=== PATIENT | female | born 1970 | race Caucasian/White ===

== ENCOUNTER 2018-10-12 21:16 | Emergency (ER) | payer MEDICARE, OTHER ==
[2018-10-12 21:24] VITALS: BP 128/88; PULSE 72; RESP 18; TEMP 97.7
[2018-10-12] MEDS ORDERED: KETOROLAC 60 MG/2 ML VIAL IM STA (21:59)
--- NOTE | 2018-10-12 22:02 | ED ---
Extremity Problem HPI - General Chief complaint: Extremity Problem,Nontraumatic Stated complaint: Lt and Right knee pain Time Seen by Provider: 10/12/18 21:27 Source: patient Mode of arrival: wheelchair Limitations: no limitations - History of Present Illness Initial comments: This patient is a 48-year-old woman who complains of having months of bilateral knee pain. She states that it seems to bother her most when she stands for hours, for example while working. She states that she had been living in [place], and they recommended that she have physical therapy. She states that she was not able to afford this. She moved back to [place] in July, and has been working at [employer] where she is required to stand. She states that this seems to bring on the bilateral knee pain. She describes as an ache and indicates the entire joint. She has not had fever or chills. No palpitations, chest pain, dyspnea. She has not had pain in the muscles of the legs. She has noted a little bit of swelling to the anterior of the left knee, and states that this has been going on for quite some time. She does note that she had bilateral TKA performed in the other state years ago in response to having the pains, but she states that she continue to have them after. MD Complaint: joint swelling, joint pain -: month(s) Location: bilateral lower extremity, knee -: Yes arthralgia Quality: aching Consistency: constant Improves with: nothing Worsens with: other (standing for hours) Associated Symptoms: denies other symptoms - Related Data Home Medications Medication Instructions Recorded Confirmed Levothyroxine Sodium [Synthroid] 137 mcg PO DAILY 10/12/18 10/12/18 Lisinopril [Zestril] 2.5 mg PO DAILY 10/12/18 10/12/18 Topiramate [Topamax] 25 mg PO BID 10/12/18 10/12/18 glipiZIDE XL [Glucotrol Xl] 10 mg PO DAILY 10/12/18 10/12/18 metFORMIN HCL ER [Glucophage Xr] 1,000 mg PO BID 10/12/18 10/12/18 risperiDONE [RisperDAL] 0.5 mg PO BID 10/12/18 10/12/18 Previous Rx's Medication Instructions Recorded Ibuprofen 800 mg PO TID #20 tablet 10/12/18 Allergies Allergy/AdvReac Type Severity Reaction Status Date / Time acetaminophen Allergy Rash/Hives Verified 10/12/18 21:56 [From Darvocet-N] cephalexin [From Keflex] Allergy Rash/Hives Verified 10/12/18 21:56 propoxyphene Allergy Rash/Hives Verified 10/12/18 21:56 [From Darvocet-N] Review of Systems ROS Statement: Those systems with pertinent positive or pertinent negative responses have been documented in the HPI. ROS Other: All systems not noted in ROS Statement are negative. Constitutional: Denies: fever, chills, weakness Respiratory: Denies: cough, dyspnea Cardiovascular: Denies: chest pain, palpitations Musculoskeletal: Reports: joint swelling, arthralgia. Denies: back pain Skin: Denies: rash Neurological: Denies: weakness, numbness Past Medical History Past Medical History: Diabetes Mellitus, Hypertension History of Any Multi-Drug Resistant Organisms: None Reported Past Surgical History: Section, Cholecystectomy, Hysterectomy, Orthopedic Surgery Additional Past Surgical History / Comment(s): bilat knees,thymus gland Past Psychological History: No Psychological Hx Reported Smoking Status: Never smoker Past Alcohol Use History: None Reported Past Drug Use History: None Reported General Exam Limitations: no limitations General appearance: alert, in no apparent distress Respiratory exam: Present: normal lung sounds bilaterally. Absent: respiratory distress, wheezes, rales, rhonchi, stridor Cardiovascular Exam: Present: regular rate, normal rhythm, normal heart sounds. Absent: systolic murmur, diastolic murmur, rubs, gallop Extremities exam: Present: normal inspection, normal capillary refill, joint swelling (mild swelling L knee). Absent: pedal edema Neurological exam: Present: alert Skin exam: Present: warm, dry, intact, normal color. Absent: rash Course Vital Signs 10/12/18 21:19 Temperature 97.7 F Pulse Rate 72 Respiratory 18 Rate Blood Pressure 128/88 O2 Sat by Pulse 99 Oximetry Disposition Clinical Impression: Knee pain, bilateral Disposition: HOME SELF-CARE Condition: Fair Instructions (If sedation given, give patient instructions): Knee Pain (ED) Prescriptions: Ibuprofen 800 mg PO TID #20 tablet Is patient prescribed a controlled substance at d/c from ED?: No Referrals: Manjinder Beck MD [Primary Care Provider] - 1-2 days Mark Dowling DO [Doctor of Osteopathic Medicine] - 1-2 days
--- NOTE | 2018-10-12 22:18 | XR ---
EXAM: XR Left Knee, 3 views CLINICAL HISTORY: Pain TECHNIQUE: Three views of the left knee. COMPARISON: No relevant prior studies available. FINDINGS: Bones/joints: Total knee arthroplasty. No acute fracture or traumatic malalignment. Soft tissues: Unremarkable. IMPRESSION: No acute findings.
== END 2018-10-12 23:54 | disposition home or self-care (01) ==
LOC: EC 21:16
DX: M25.561 Pain in right knee (principal); M25.562 Pain in left knee; E11.9 Type 2 diabetes mellitus without complications; I10 Essential (primary) hypertension; Z79.890 Hormone replacement therapy; Z79.84 Long term (current) use of oral hypoglycemic drugs; Z79.899 Other long term (current) drug therapy; Z88.1 Allergy status to other antibiotic agents; Z88.5 Allergy status to narcotic agent; Z88.6 Allergy status to analgesic agent
CPT/HCPCS: 73562; 99283; 96372; J1885

== ENCOUNTER 2018-12-15 20:09 | Emergency (ER) | payer MEDICARE, OTHER ==
[2018-12-15 20:15] VITALS: TEMP 98
[2018-12-15] MEDS ORDERED: SODIUM CHLORIDE 0.9% 1,000 ML IV STA ×2 (20:18→21:32)
[2018-12-15] MEDS ORDERED: KETOROLAC 30 MG/ML 1 ML VIAL IVP STA (20:41)
--- NOTE | 2018-12-15 20:43 | ED ---
General Adult HPI - General Chief complaint: Arrhythmia/Palpitations Stated complaint: sent by [employer] Time Seen by Provider: 12/15/18 20:17 Source: patient Mode of arrival: ambulatory Limitations: no limitations - History of Present Illness Initial comments: Dictation was produced using [employer] dictation software. please excuse any grammatical, word or spelling errors. Chief Complaint: 48-year-old female sent in from urgent care for elevated heart rate. History of Present Illness: 48-year-old female she was seen at the urgent care office for sinusitis. Patient has been having 3-4 days of runny nose, sore throat and cough. She was at urgent care when they checked her vitals. She had a heart rate of 122 that did not improve. She is given prescription for Augmentin and Tessalon Perles and told to come to the emergency Department due to elevated heart rate. Patient feels like her heart beating fast. She did feel slightly feverish however she has no other complaints. Denies any chest pain. No abdominal pain. No nausea or vomiting. The ROS documented in this emergency department record has been reviewed and confirmed by me. Those systems with pertinent positive or negative responses have been documented in the HPI. All other systems are other negative and/or noncontributory. PHYSICAL EXAM: General Impression: Alert and oriented x3, not in acute distress HEENT: Normocephalic atraumatic, extra-ocular movements intact, pupils equal and reactive to light bilaterally, mucous membranes moist. Cardiovascular: Heart regular rate and rhythm, S1&S2 audible, no murmurs, rubs or gallops Chest: Lungs clear to auscultation bilaterally, no rhonchi, no wheeze, no rales Abdomen: Bowel sounds present, abdomen soft, non-tender, non-distended, no organomegaly Musculoskeletal: Pulses present and equal in all extremities, no peripheral edema Motor: no focal deficits noted Neurological: CN II-XII grossly intact, no focal motor or sensory deficits noted Skin: Intact with no visualized rashes Psych: Normal affect and mood ED course: 48-year-old female presents with tachycardia. Patient has current symptoms of sinusitis or URI. She was sent over from urgent care for elevated heart rate. Vital signs upon arrival shows heart rate of 122. Rest of vital signs unremarkable. EKG shows sinus tachycardia. Laboratory evaluation obtained. Patient has mild gap acidosis with a bicarb of 15. This is suggested to be secondary to dehydration. Patient given intravenous fluids with improvement of heart rate from 122-83 after 1 L normal saline bolus. Laboratory evaluation and results were discussed with patient. She is told that she has mild acidosis which is likely secondary to dehydration however could be secondary to other etiologies. Patient also has findings of urinary tract infection. Also notified of this. She is currently on antibiotic regimen for her sinusitis. Believe that the antibiotics that she is taking for sinusitis should be appropriate for her urinary tract infection. Regardless, patient's urine sent for culture. Patient appears well at this time. She is clear for discharge. Return parameters were discussed. Told to follow-up with primary care physician upon discharge. EKG interpretation: Ventricular rate 122, sinus tachycardia,. 120, care 72, QTc 450. No WA prolongation, no QTC prolongation, no ST or T-wave changes noted. Overall, this EKG is unremarkable - Related Data Home Medications Medication Instructions Recorded Confirmed Levothyroxine Sodium [Synthroid] 137 mcg PO DAILY 10/12/18 12/15/18 Lisinopril [Zestril] 2.5 mg PO DAILY 10/12/18 12/15/18 metFORMIN HCL ER [Glucophage Xr] 1,000 mg PO BID 10/12/18 12/15/18 risperiDONE [RisperDAL] 1 mg PO BID 12/15/18 12/15/18 Allergies Allergy/AdvReac Type Severity Reaction Status Date / Time acetaminophen Allergy Rash/Hives Verified 12/15/18 21:40 [From Darvocet-N] cephalexin [From Keflex] Allergy Rash/Hives Verified 12/15/18 21:40 propoxyphene Allergy Rash/Hives Verified 12/15/18 21:40 [From Darvocet-N] Review of Systems ROS Statement: Those systems with pertinent positive or pertinent negative responses have been documented in the HPI. ROS Other: All systems not noted in ROS Statement are negative. Past Medical History Past Medical History: Diabetes Mellitus, Hypertension History of Any Multi-Drug Resistant Organisms: None Reported Past Surgical History: Section, Cholecystectomy, Hysterectomy, Orthopedic Surgery Additional Past Surgical History / Comment(s): bilat knees,thymus gland Past Psychological History: No Psychological Hx Reported Smoking Status: Never smoker Past Alcohol Use History: None Reported Past Drug Use History: None Reported General Exam Limitations: no limitations Course Vital Signs 12/15/18 12/15/18 20:10 22:32 Temperature 98.0 F Pulse Rate 122 H 83 Respiratory 18 20 Rate Blood Pressure 136/79 129/77 O2 Sat by Pulse 99 100 Oximetry Medical Decision Making - Lab Data Result diagrams: 12/15/18 21:00 Lab Results 12/15/18 12/15/18 Range/Units 21:00 21:40 Sodium 135 L (137-145) mmol/L Potassium 4.5 (3.5-5.1) mmol/L Chloride 106 (98-107) mmol/L Carbon Dioxide 15 L (22-30) mmol/L Anion Gap 14 mmol/L BUN 14 (7-17) mg/dL Creatinine 0.62 (0.52-1.04) mg/dL Est GFR (CKD-EPI)AfAm >90 (>60 ml/min/1.73 sqM) Est GFR (CKD-EPI)NonAf >90 (>60 ml/min/1.73 sqM) Glucose 277 H (74-99) mg/dL Calcium 9.1 (8.4-10.2) mg/dL Urine Color Light Yellow Urine Appearance Clear (Clear) Urine pH 5.0 (5.0-8.0) Ur Specific [place] 1.020 (1.001-1.035) Urine Protein Trace H (Negative) Urine Glucose (UA) 4+ H (Negative) Urine Ketones Negative (Negative) Urine Blood Negative (Negative) Urine Nitrite Positive H (Negative) Urine Bilirubin Negative (Negative) Urine Urobilinogen <2.0 (<2.0) mg/dL Ur Leukocyte Esterase Negative (Negative) Urine RBC 1 (0-5) /hpf Urine WBC 6 H (0-5) /hpf Ur Squamous Epith Cells <1 (0-4) /hpf Urine Bacteria Rare H (None) /hpf Hyaline Casts 7 H (0-2) /lpf Urine Mucus Rare H (None) /hpf Disposition Clinical Impression: Tachycardia, Dehydration, Metabolic acidosis Disposition: HOME SELF-CARE Condition: Good Instructions (If sedation given, give patient instructions): Heart Palpitations (ED) Is patient prescribed a controlled substance at d/c from ED?: No Referrals: Manjinder Beck MD [Primary Care Provider] - 1-2 days Time of Disposition: 22:40
[2018-12-15 21:27] LABS: African American GFR (CKD) >90 (>60 ml/min/1.73 sqM); Anion Gap 14 mmol/L; Blood Urea Nitrogen 14 mg/dL (7-17); Calcium 9.1 mg/dL (8.4-10.2); Carbon Dioxide 15 mmol/L (22-30); Chloride 106 mmol/L (98-107); Glucose 277 mg/dL (74-99); Sodium 135 mmol/L (137-145)
[2018-12-15 21:28] LABS: Potassium 4.5 mmol/L (3.5-5.1)
[2018-12-15 21:58] LABS: Appearance,Urine Clear (Clear); Bacteria,Urine Rare /hpf; Bilirubin,Urine Negative (Negative); Blood,Urine Negative (Negative); Color,Urine Light Yellow; Glucose,Urine (UA) 4+ (Negative); Hyaline Casts,Urine 7 /lpf (0-2); Ketones,Urine Negative (Negative); Leukocyte Esterase,Urine Negative (Negative); Mucus,Urine Rare /hpf; Nitrite,Urine Positive (Negative); Protein,Urine Trace (Negative); RBC,Urine 1 /hpf (0-5); Squamous Epithelial Cell,Urine <1 /hpf (0-4); Urobilinogen,Urine <2.0 mg/dL (<2.0)
[2018-12-15] MEDS ORDERED: SULFAMETH-TMP DS STARTER PACK 2 TAB BTL PO STA (22:09)
[2018-12-15 22:33] VITALS: BP 129/77; PULSE 83; RESP 20
== END 2018-12-15 22:53 | disposition home or self-care (01) ==
LOC: EC 20:09
DX: E86.0 Dehydration (principal); R00.0 Tachycardia, unspecified; J32.9 Chronic sinusitis, unspecified; N39.0 Urinary tract infection, site not specified; E11.9 Type 2 diabetes mellitus without complications; I10 Essential (primary) hypertension; Z88.1 Allergy status to other antibiotic agents; Z88.5 Allergy status to narcotic agent; Z88.6 Allergy status to analgesic agent; Z79.84 Long term (current) use of oral hypoglycemic drugs; Z79.890 Hormone replacement therapy; Z79.899 Other long term (current) drug therapy
CPT/HCPCS: 36415; 93005; 80048; 81001; 99285; 96374; 96361 ×2; J1885

== ENCOUNTER 2019-01-12 21:10 | Emergency (ER) | payer MEDICARE, OTHER ==
--- NOTE | 2019-01-12 21:30 | ED ---
General Adult HPI - General Source: patient, RN notes reviewed Mode of arrival: ambulatory Limitations: no limitations <Henrry Hardy - Last Filed: 01/12/19 21:28> <Melody Meyer - Last Filed: 01/13/19 01:48> - General Chief complaint: Psychiatric Symptoms Stated complaint: Mental health Time Seen by Provider: 01/12/19 21:18 - History of Present Illness Initial comments: Patient is a pleasant 48-year-old female presenting to the emergency department requesting mental health evaluation. Patient states she has had increased stress and anxiety over the past month. Patient states her 1 sister she was living with kicked her out. Patient has also been off her medications for the past month. Patient states her primary care physician will no longer prescribe medications. Patient is trying to get in to see a psychiatrist however cannot see one until January. Patient denies suicidal or homicidal thoughts. No physical complaints. No alcohol or street drug use. No hallucinations. (Henrry Hardy) - Related Data Home Medications Medication Instructions Recorded Confirmed Levothyroxine Sodium [Synthroid] 137 mcg PO DAILY 10/12/18 01/12/19 Lisinopril [Zestril] 2.5 mg PO DAILY 10/12/18 01/12/19 risperiDONE [RisperDAL] 1 mg PO BID 12/15/18 01/12/19 Omeprazole [PriLOSEC] 20 mg PO DAILY 01/12/19 01/12/19 glipiZIDE XL [Glucotrol Xl] 10 mg PO AC-BID 01/12/19 01/12/19 metFORMIN HCL [Glucophage] 1,000 mg PO BID 01/12/19 01/12/19 traZODone HCL [Desyrel] 100 - 200 mg PO HS PRN 01/12/19 01/12/19 Previous Rx's Medication Instructions Recorded risperiDONE [RisperDAL] 1 mg PO BID #28 tablet 01/13/19 Allergies Allergy/AdvReac Type Severity Reaction Status Date / Time acetaminophen Allergy Rash/Hives Verified 01/12/19 21:39 [From Darvocet-N] cephalexin [From Keflex] Allergy Rash/Hives Verified 01/12/19 21:39 propoxyphene Allergy Rash/Hives Verified 01/12/19 21:39 [From Darvocet-N] Review of Systems ROS Other: All systems not noted in ROS Statement are negative. Constitutional: Denies: fever Eyes: Denies: eye pain ENT: Denies: ear pain Respiratory: Denies: cough Cardiovascular: Denies: chest pain Endocrine: Denies: fatigue Gastrointestinal: Denies: abdominal pain Genitourinary: Denies: dysuria Musculoskeletal: Denies: back pain Skin: Denies: rash Neurological: Denies: headache Psychiatric: Reports: anxiety, depression. Denies: auditory hallucinations, visual hallucinations, homicidal thoughts, suicidal thoughts <Henrry Hardy - Last Filed: 01/12/19 21:28> ROS Other: All systems not noted in ROS Statement are negative. <Melody Meyer P - Last Filed: 01/13/19 01:48> ROS Statement: Those systems with pertinent positive or pertinent negative responses have been documented in the HPI. Past Medical History Past Medical History: Diabetes Mellitus, Hypertension History of Any Multi-Drug Resistant Organisms: None Reported Past Surgical History: Section, Cholecystectomy, Hysterectomy, Orthopedic Surgery Additional Past Surgical History / Comment(s): bilat knees,thymus gland Past Psychological History: Schizoaffective Disorder Smoking Status: Never smoker Past Alcohol Use History: None Reported Past Drug Use History: None Reported <Henrry Hardy - Last Filed: 01/12/19 21:28> General Exam Limitations: no limitations General appearance: alert, in no apparent distress Head exam: Present: atraumatic Eye exam: Present: normal appearance Neck exam: Present: normal inspection Respiratory exam: Present: normal lung sounds bilaterally Cardiovascular Exam: Present: regular rate, normal rhythm GI/Abdominal exam: Present: soft. Absent: tenderness Extremities exam: Present: normal inspection. Absent: pedal edema, calf ten derness Neurological exam: Present: alert Psychiatric exam: Present: depressed Skin exam: Present: normal color <Henrry Hardy - Last Filed: 01/12/19 21:28> Course Vital Signs 01/12/19 01/12/19 21:14 22:31 Temperature 98.3 F 97.9 F Pulse Rate 112 H 52 L Respiratory 18 18 Rate Blood Pressure 121/83 122/92 O2 Sat by Pulse 96 94 L Oximetry Medical Decision Making <Melody Meyer - Last Filed: 01/13/19 01:48> - Medical Decision Making Patient care was signed out to me by Dr. Hardy. Patient was awaiting evaluation by emergency psychiatric services, patient was evaluated. Patient did admit to being depressed and anxious but denied suicidal or homicidal ideation. Patient does have close follow-up with counselor, she is scheduled to see a psychiatrist in early January, patient states that she came to the ER today hoping that she would be able to see a psychiatrist sooner so that she could be prescribed her Risperdal. I will provide her a 2 week supply of this medication upon discharge. At this time there is no indication for inpatient psychiatric care. (Melody Meyer) - Lab Data Lab Results 01/12/19 Range/Units 21:00 Urine Opiates Screen Not Detected (NotDetected) Ur Oxycodone Screen Not Detected (NotDetected) Urine Methadone Screen Not Detected (NotDetected) Ur Propoxyphene Screen Not Detected (NotDetected) Ur Barbiturates Screen Not Detected (NotDetected) U Tricyclic Antidepress Not Detected (NotDetected) Ur Phencyclidine Scrn Not Detected (NotDetected) Ur Amphetamines Screen Not Detected (NotDetected) U Methamphetamines Scrn Not Detected (NotDetected) U Benzodiazepines Scrn Not Detected (NotDetected) Urine Cocaine Screen Not Detected (NotDetected) U Marijuana (THC) Screen Not Detected (NotDetected) Disposition <Henrry Hardy - Last Filed: 01/12/19 21:28> Is patient prescribed a controlled substance at d/c from ED?: No <Melody Meyer - Last Filed: 01/13/19 01:48> Clinical Impression: Depression Disposition: HOME SELF-CARE Condition: Stable Prescriptions: risperiDONE [RisperDAL] 1 mg PO BID #28 tablet Referrals: Manjinder Beck MD [Primary Care Provider] - 1-2 days
[2019-01-12 22:00] LABS: Amphetamine Screen,Urine Not Detected (NotDetected); Barbiturate Screen,Urine Not Detected (NotDetected); Benzodiazepines Screen,Urine Not Detected (NotDetected); Cocaine Screen,Urine Not Detected (NotDetected); Methadone Screen, Urine Not Detected (NotDetected); Opiate Screen,Urine Not Detected (NotDetected); Oxycodone Screen, Urine Not Detected (NotDetected); Phencyclidine Screen,Urine Not Detected (NotDetected); Tricyclic Antidepressant,Urine Not Detected (NotDetected); Urn Cannabinoid Scrn Not Detected (NotDetected)
[2019-01-13 01:58] VITALS: BP 130/87; PULSE 108; RESP 20; TEMP 98.1
== END 2019-01-13 02:05 | disposition home or self-care (01) ==
LOC: EC 21:10
DX: F32.9 Major depressive disorder, single episode, unspecified (principal); E11.9 Type 2 diabetes mellitus without complications; I10 Essential (primary) hypertension; F25.9 Schizoaffective disorder, unspecified; Z79.890 Hormone replacement therapy; Z79.84 Long term (current) use of oral hypoglycemic drugs; Z79.899 Other long term (current) drug therapy; Z88.1 Allergy status to other antibiotic agents; Z88.5 Allergy status to narcotic agent; Z88.6 Allergy status to analgesic agent
CPT/HCPCS: 80306; 82075; 99284

== ENCOUNTER 2019-11-10 16:19 | Inpatient (IN) | payer OTHER ==
[2019-11-10] MEDS ORDERED: ONDANSETRON 4 MG/2 ML VIAL IVP STA (16:47)
[2019-11-10] MEDS ORDERED: HYDROmorphone 0.5 MG/0.5 ML SYRINGE IVP STA (16:47)
[2019-11-10] MEDS ORDERED: SODIUM CHLORIDE 0.9% 1,000 ML IV STA (16:47)
--- NOTE | 2019-11-10 16:50 | ED ---
General Adult HPI <Gabriel Colin - Last Filed: 11/10/19 19:07> - General Source: patient, RN notes reviewed Mode of arrival: ambulatory Limitations: no limitations <Vinh Jorgensen - Last Filed: 11/10/19 19:26> - General Chief complaint: Abdominal Pain Stated complaint: appendicitis Time Seen by Provider: 11/10/19 16:29 - History of Present Illness Initial comments: 49-year-old female with a past medical history diabetes mellitus, hypertension presents to the emergency department for a chief complaint of abdominal pain. Patient has had right lower quadrant abdominal pain for the past several days. States she has not been able to keep anything down and has been vomiting. Patient states at Dr. Lopes's office her temperature was 103. She has taken Motrin since then. Patient has a history of cholecystectomy, hysterectomy. No history of appendectomy.Patient has no other complaints at this time including shortness of breath, chest pain, headache, or visual changes. (Vinh Jorgensen) - Related Data Home Medications Medication Instructions Recorded Confirmed Levothyroxine Sodium [Synthroid] 137 mcg PO DAILY 10/12/18 01/12/19 Lisinopril [Zestril] 2.5 mg PO DAILY 10/12/18 01/12/19 risperiDONE [RisperDAL] 1 mg PO BID 12/15/18 01/12/19 Omeprazole [PriLOSEC] 20 mg PO DAILY 01/12/19 01/12/19 glipiZIDE XL [Glucotrol Xl] 10 mg PO AC-BID 01/12/19 01/12/19 metFORMIN HCL [Glucophage] 1,000 mg PO BID 01/12/19 01/12/19 traZODone HCL [Desyrel] 100 - 200 mg PO HS PRN 01/12/19 01/12/19 Previous Rx's Medication Instructions Recorded risperiDONE [RisperDAL] 1 mg PO BID #28 tablet 01/13/19 Allergies Allergy/AdvReac Type Severity Reaction Status Date / Time acetaminophen Allergy Rash/Hives Verified 01/12/19 21:39 [From Darvocet-N] cephalexin [From Keflex] Allergy Rash/Hives Verified 01/12/19 21:39 propoxyphene Allergy Rash/Hives Verified 01/12/19 21:39 [From Darvocet-N] Review of Systems ROS Other: All systems not noted in ROS Statement are negative. <Gabriel Colin - Last Filed: 11/10/19 19:07> ROS Other: All systems not noted in ROS Statement are negative. <Vinh Jorgensen - Last Filed: 11/10/19 19:26> ROS Statement: Those systems with pertinent positive or pertinent negative responses have been documented in the HPI. Past Medical History Past Medical History: Diabetes Mellitus, Hypertension History of Any Multi-Drug Resistant Organisms: None Reported Past Surgical History: Section, Cholecystectomy, Hysterectomy, Orthopedic Surgery Additional Past Surgical History / Comment(s): bilat knees,thymus gland Past Psychological History: Schizoaffective Disorder Smoking Status: Never smoker Past Alcohol Use History: None Reported Past Drug Use History: None Reported <Vinh Jorgensen - Last Filed: 11/10/19 19:26> General Exam Limitations: no limitations General appearance: alert, in no apparent distress Head exam: Present: atraumatic, normocephalic, normal inspection Eye exam: Present: normal appearance, PERRL, EOMI. Absent: scleral icterus, conjunctival injection, periorbital swelling ENT exam: Present: normal exam, mucous membranes moist Neck exam: Present: normal inspection, full ROM. Absent: tenderness, meningismus, lymphadenopathy Respiratory exam: Present: normal lung sounds bilaterally. Absent: respiratory distress, wheezes, rales, rhonchi, stridor Cardiovascular Exam: Present: regular rate, normal rhythm, normal heart sounds. Absent: systolic murmur, diastolic murmur, rubs, gallop, clicks GI/Abdominal exam: Present: soft, tenderness (Right lower quadrant tenderness), normal bowel sounds. Absent: distended, guarding, rebound, rigid <Vinh Jorgensen - Last Filed: 11/10/19 19:26> Course <Gabriel Colin - Last Filed: 11/10/19 19:07> Vital Signs 11/10/19 11/10/19 16:22 18:35 Temperature 98.2 F Pulse Rate 122 H 102 H Respiratory 18 18 Rate Blood Pressure 124/78 100/63 O2 Sat by Pulse 96 96 Oximetry - Reevaluation(s) Reevaluation #1: 11/10/19 19:07 PA supervision: I personally did evaluate the case and did discuss the findings with Dr. Lopes. Patient will be admitted with surgical consultation. (Gabriel Colin) Medical Decision Making - Lab Data Result diagrams: 11/10/19 17:07 11/10/19 17:07 <Gabriel Colin - Last Filed: 11/10/19 19:07> - Lab Data Result diagrams: 11/10/19 17:07 11/10/19 17:07 <Vinh Jorgensen - Last Filed: 11/10/19 19:26> - Medical Decision Making 49-year-old female presents for lower abdominal pain and vomiting. This has been ongoing for 3-4 days. Patient did vomit on the emergency room. Patient initially tachycardic however this did improve after fluids. CBC does show leukocytosis of 19.6. Hemoglobin elevated at 19.2. It patient likely hemoconcentrated, given fluids. She does have evidence of a urinary tract infection with positive nitrites and will be given IV Rocephin. CT abdomen and pelvis shows a mildly dilated fluid-filled small bowel loops in the lower abdomen and involving more proximal jejunum without transition point seen that could relate to partial mechanical obstruction. There is partly incarcerated lower abdominal ventral hernia inferior to the umbilicus containing small bowel but no sign that this is a transposition point of obstruction. Patient was given medications and is feeling better at this time however given degree of dehydration and CT findings she will be admitted with surgical consultation. Case was discussed with Dr. Lopes and Dr. Hernandes (Vinh Jorgensen) - Lab Data Lab Results 11/10/19 11/10/19 11/10/19 Range/Units 17:07 17:07 17:07 WBC 19.6 H (3.8-10.6) k/uL RBC 6.31 H (3.80-5.40) m/uL Hgb 19.2 H* (11.4-16.0) gm/dL Hct 57.3 H* (34.0-46.0) % MCV 90.8 (80.0-100.0) fL MCH 30.5 (25.0-35.0) pg MCHC 33.5 (31.0-37.0) g/dL RDW 13.5 (11.5-15.5) % Plt Count 444 (150-450) k/uL Neutrophils % 66 % Lymphocytes % 22 % Monocytes % 3 % Eosinophils % 7 % Basophils % 1 % Neutrophils # 13.0 H (1.3-7.7) k/uL Lymphocytes # 4.2 (1.0-4.8) k/uL Monocytes # 0.6 (0-1.0) k/uL Eosinophils # 1.4 H (0-0.7) k/uL Basophils # 0.2 (0-0.2) k/uL Sodium 136 L (137-145) mmol/L Potassium 3.8 (3.5-5.1) mmol/L Chloride 102 (98-107) mmol/L Carbon Dioxide 20 L (22-30) mmol/L Anion Gap 14 mmol/L BUN 17 (7-17) mg/dL Creatinine 0.91 (0.52-1.04) mg/dL Est GFR (CKD-EPI)AfAm 86 (>60 ml/min/1.73 sqM) Est GFR (CKD-EPI)NonAf 75 (>60 ml/min/1.73 sqM) Glucose 246 H (74-99) mg/dL Plasma Lactic Acid Shayan (0.7-2.0) mmol/L Calcium 8.8 (8.4-10.2) mg/dL Total Bilirubin 0.3 (0.2-1.3) mg/dL AST 19 (14-36) U/L ALT 13 (4-34) U/L Alkaline Phosphatase 113 (38-126) U/L Total Protein 6.8 (6.3-8.2) g/dL Albumin 4.0 (3.5-5.0) g/dL Amylase <30 L (30-110) U/L Lipase 79 (23-300) U/L Urine Color Yellow Urine Appearance Cloudy H (Clear) Urine pH 5.5 (5.0-8.0) Ur Specific [place] 1.039 H (1.001-1.035) Urine Protein 1+ H (Negative) Urine Glucose (UA) 4+ H (Negative) Urine Ketones 1+ H (Negative) Urine Blood Negative (Negative) Urine Nitrite Positive H (Negative) Urine Bilirubin 1+ H (Negative) Urine Urobilinogen 3.0 (<2.0) mg/dL Ur Leukocyte Esterase Small H (Negative) Urine WBC 19 H (0-5) /hpf Ur Squamous Epith Cells 6 H (0-4) /hpf Urine Bacteria Few H (None) /hpf Cellular Casts 1 (0) /lpf Hyaline Casts 19 H (0-2) /lpf Urine Mucus Few H (None) /hpf // Range/Units 17:07 WBC (3.8-10.6) k/uL RBC (3.80-5.40) m/uL Hgb (11.4-16.0) gm/dL Hct (34.0-46.0) % MCV (80.0-100.0) fL MCH (25.0-35.0) pg MCHC (31.0-37.0) g/dL RDW (11.5-15.5) % Plt Count (150-450) k/uL Neutrophils % % Lymphocytes % % Monocytes % % Eosinophils % % Basophils % % Neutrophils # (1.3-7.7) k/uL Lymphocytes # (1.0-4.8) k/uL Monocytes # (0-1.0) k/uL Eosinophils # (0-0.7) k/uL Basophils # (0-0.2) k/uL Sodium (137-145) mmol/L Potassium (3.5-5.1) mmol/L Chloride (98-107) mmol/L Carbon Dioxide (22-30) mmol/L Anion Gap mmol/L BUN (7-17) mg/dL Creatinine (0.52-1.04) mg/dL Est GFR (CKD-EPI)AfAm (>60 ml/min/1.73 sqM) Est GFR (CKD-EPI)NonAf (>60 ml/min/1.73 sqM) Glucose (74-99) mg/dL Plasma Lactic Acid [place] 2.0 (0.7-2.0) mmol/L Calcium (8.4-10.2) mg/dL Total Bilirubin (0.2-1.3) mg/dL AST (14-36) U/L ALT (4-34) U/L Alkaline Phosphatase (38-126) U/L Total Protein (6.3-8.2) g/dL Albumin (3.5-5.0) g/dL Amylase (30-110) U/L Lipase (23-300) U/L Urine Color Urine Appearance (Clear) Urine pH (5.0-8.0) Ur Specific [place] (1.001-1.035) Urine Protein (Negative) Urine Glucose (UA) (Negative) Urine Ketones (Negative) Urine Blood (Negative) Urine Nitrite (Negative) Urine Bilirubin (Negative) Urine Urobilinogen (<2.0) mg/dL Ur Leukocyte Esterase (Negative) Urine WBC (0-5) /hpf Ur Squamous Epith Cells (0-4) /hpf Urine Bacteria (None) /hpf Cellular Casts (0) /lpf Hyaline Casts (0-2) /lpf Urine Mucus (None) /hpf Disposition <Gabriel Colin - Last Filed: 11/10/19 19:07> Is patient prescribed a controlled substance at d/c from ED?: No Time of Disposition: 19:26 <Vinh Jorgensen - Last Filed: 11/10/19 19:26> Clinical Impression: Abdominal pain, Leukocytosis, Dehydration, Urinary tract infection Disposition: ADMITTED IP TO THIS HOSP Condition: Fair Referrals: Ramin Lopes MD [Primary Care Provider] - 1-2 days
[2019-11-10 17:37] LABS: Appearance,Urine Cloudy (Clear); Bacteria,Urine Few /hpf; Basophils # (A) 0.2 k/uL (0-0.2); Basophils % (A) 1 %; Bilirubin,Urine 1+ (Negative); Blood,Urine Negative (Negative); Cellular Casts,Urine 1 /lpf (0); Color,Urine Yellow; Eosinophils # (A) 1.4 k/uL (0-0.7); Eosinophils % (A) 7 %; Glucose,Urine (UA) 4+ (Negative); Hyaline Casts,Urine 19 /lpf (0-2); Ketones,Urine 1+ (Negative); Leukocyte Esterase,Urine Small (Negative); Lymphocytes # (A) 4.2 k/uL (1.0-4.8); Lymphocytes % (A) 22 %; MCH 30.5 pg (25.0-35.0); MCHC 33.5 g/dL (31.0-37.0); MCV 90.8 fL (80.0-100.0); Mean Platelet Volume 8.6; Monocytes # (A) 0.6 k/uL (0-1.0); Monocytes % (A) 3 %; Mucus,Urine Few /hpf; Neutrophils % (A) 66 %; Nitrite,Urine Positive (Negative); PH, Urine 5.5 (5.0-8.0); Platelet Count 444 k/uL (150-450); Protein,Urine 1+ (Negative); RBC 6.31 m/uL (3.80-5.40); RDW 13.5 % (11.5-15.5); Specific Gravity,Urine 1.039 (1.001-1.035); Squamous Epithelial Cell,Urine 6 /hpf (0-4); WBC 19.6 k/uL (3.8-10.6); WBC,Urine 19 /hpf (0-5)
[2019-11-10 17:40] LABS: ALT 13 U/L (4-34); AST 19 U/L (14-36); African American GFR (CKD) 86 (>60 ml/min/1.73 sqM); Alkaline Phosphatase 113 U/L (38-126); Anion Gap 14 mmol/L; Blood Urea Nitrogen 17 mg/dL (7-17); Calcium 8.8 mg/dL (8.4-10.2); Carbon Dioxide 20 mmol/L (22-30); Chloride 102 mmol/L (98-107); Glucose 246 mg/dL (74-99); HCT 57.3 % (34.0-46.0); HGB 19.2 gm/dL (11.4-16.0); Non-African American GFR(CKD) 75 (>60 ml/min/1.73 sqM); Potassium 3.8 mmol/L (3.5-5.1); Sodium 136 mmol/L (137-145); Total Bilirubin 0.3 mg/dL (0.2-1.3); Total Protein 6.8 g/dL (6.3-8.2)
[2019-11-10 17:43] LABS: Amylase <30 U/L (30-110)
--- NOTE | 2019-11-10 18:27 | CT ---
EXAMINATION TYPE: CT abdomen pelvis w con DATE OF EXAM: 11/10/2019 COMPARISON: None HISTORY: RLQ pain CT DLP: 2538.4 mGycm Automated exposure control for dose reduction was used. CONTRAST: Performed with IV Contrast, patient injected with 100 mL of Isovue 300. Lung bases are clear. There is no pleural effusion. Heart size is normal. There is no pericardial eff usion. Liver and spleen appear normal. Bile ducts are not dilated. There are clips from cholecystecto my. Stomach is large and filled with fluid. There is no evidence of pancreatic mass. There is no adre nal mass. Kidneys show satisfactory contrast opacification. There is no hydronephrosis. Ureters are not dilated . Bladder distends smoothly. There is no inguinal hernia. There is no free fluid in the pelvis. There are clips from hysterectomy. There is no mesenteric edema. There is no ascites or free air. There are some dilated fluid-filled lo ops of small bowel in the lower mid abdomen. These measure up to 3.5 cm. The distal ileum is not dila katy. Appendix is not seen with certainty. There is no sign of thickened appendix. There is ventral hernia that contains small bowel in the lower anterior abdomen on the right of midli ne. There does not appear to be obstruction at this point. Lumbar vertebra have normal alignment. Disc spaces are fairly normal. Posterior elements are intact. Bony pelvis is intact. IMPRESSION: Mildly dilated fluid-filled small bowel loops in the lower abdomen and also involving more proximal j ejunum. No transition point seen. This could relate to partial mechanical obstruction. There is partl y incarcerated lower abdominal ventral hernia inferior to the umbilicus containing small bowel but no sign that this is a transition point of obstruction. Appendix not seen. No sign of thickened appendix.
[2019-11-10] MEDS ORDERED: LEVOFLOXACIN 750MG-D5W PMX 750 MG in DEXTROSE/WATER 1 150ML.BAG IVPB STA (18:53)
[2019-11-10] MEDS ORDERED: MORPHINE SULFATE 4 MG/ML SYRINGE IV PRN (19:29)
[2019-11-10] MEDS ORDERED: ONDANSETRON 4 MG/2 ML VIAL IVP PRN (19:29)
[2019-11-10] MEDS ORDERED: NALOXONE 0.4 MG/ML 1 ML VIAL IV PRN (19:29)
[2019-11-10] MEDS: HYDROmorphone 0.5 MG/0.5 ML SYRINGE IVP PRN ×2 (19:48→23:16)
[2019-11-10 21:32] LABS: Glucose,Whole Blood 232 mg/dL (75-99)
[2019-11-10] MEDS: SODIUM CHLORIDE 0.9% 1,000 ML IV SCH (21:41)
[2019-11-10] MEDS: INSULIN ASPART (NovoLOG) 100 UNIT/ML VIAL SQ SCH (22:26)
[2019-11-11] MEDS: HYDROmorphone 0.5 MG/0.5 ML SYRINGE IVP PRN ×4 (03:21→19:34)
[2019-11-11] MEDS: SODIUM CHLORIDE 0.9% 1,000 ML IV SCH ×3 (04:55→19:32)
[2019-11-11 07:36] LABS: Glucose,Whole Blood 177 mg/dL (75-99)
[2019-11-11 08:13] LABS: HCT 47.5 % (34.0-46.0); MCH 29.4 pg (25.0-35.0); MCHC 32.5 g/dL (31.0-37.0); MCV 90.3 fL (80.0-100.0); Mean Platelet Volume 8.5; Platelet Count 363 k/uL (150-450); RBC 5.25 m/uL (3.80-5.40); RDW 13.4 % (11.5-15.5)
[2019-11-11 08:30] LABS: HGB 15.4 gm/dL (11.4-16.0)
[2019-11-11] MEDS: INSULIN ASPART (NovoLOG) 100 UNIT/ML VIAL SQ SCH ×4 (09:43→18:27)
[2019-11-11 09:54] LABS: ALT 9 U/L (4-34); AST 14 U/L (14-36); African American GFR (CKD) >90 (>60 ml/min/1.73 sqM); Albumin 2.8 g/dL (3.5-5.0); Alkaline Phosphatase 80 U/L (38-126); Anion Gap 8 mmol/L; Blood Urea Nitrogen 15 mg/dL (7-17); Calcium 7.4 mg/dL (8.4-10.2); Carbon Dioxide 24 mmol/L (22-30); Chloride 106 mmol/L (98-107); Glucose 171 mg/dL (74-99); Non-African American GFR(CKD) >90 (>60 ml/min/1.73 sqM); Potassium 3.4 mmol/L (3.5-5.1); Sodium 138 mmol/L (137-145); Total Bilirubin 0.2 mg/dL (0.2-1.3); Total Protein 5.1 g/dL (6.3-8.2)
[2019-11-11 10:19] LABS: Band Neutrophils % 8 %; Eosinophils # (M) 1.26 k/uL (0-0.7); Lymphocytes # (M) 3.42 k/uL (1.0-4.8); Metamyelocytes # (M) 0.72 k/uL (0); Metamyelocytes % 4 %; Monocytes # (M) 0.72 k/uL (0-1.0); Myelocytes # (M) 0.36 k/uL (0); Myelocytes % 2 %; Neutrophils % (M) 57 %; Nucleated Red Blood Cells 0 /100 WBC (0-0); Total Cells Counted 200
[2019-11-11] MEDS ORDERED: KETAMINE 10 MG/ML 20 ML VIAL ONE (10:19)
[2019-11-11] MEDS ORDERED: PROPOFOL 10 MG/ML 20 ML VIAL IV ONE (10:19)
[2019-11-11] MEDS ORDERED: ONDANSETRON 4 MG/2 ML VIAL ONE (10:19)
[2019-11-11] MEDS ORDERED: MIDAZOLAM 2 MG/2 ML VIAL ONE (10:19)
[2019-11-11] MEDS ORDERED: HYDROmorphone (PF) 1 MG/ML ONE (10:19)
[2019-11-11] MEDS ORDERED: GLYCOPYRROLATE 0.2 MG/ML 2 ML VIAL ONE (10:19)
[2019-11-11] MEDS ORDERED: ROCURONIUM BROMIDE 10 MG/ML 5 ML VIAL IV ONE (10:19)
[2019-11-11] MEDS ORDERED: LIDOCAINE 1% INJ 10MG/ML (20 ML MDV) ONE (10:19)
[2019-11-11] MEDS ORDERED: NEOSTIGMINE 1 MG/ML 10 ML VIAL ONE (10:19)
[2019-11-11] MEDS ORDERED: fentaNYL (PF) 50 MCG/ML 2 ML AMP ONE (10:19)
--- NOTE | 2019-11-11 10:20 | XR ---
EXAMINATION TYPE: XR chest 2V DATE OF EXAM ORDERED: 11/11/2019 HISTORY: abd. pain. REFERENCE: None. FINDINGS: The lungs are clear. Pleural spaces are clear. Heart size is normal. IMPRESSION: NORMAL CHEST.
--- NOTE | 2019-11-11 10:22 | XR ---
EXAMINATION TYPE: XR abdomen complete w decub , 4 VIEWS DATE OF EXAM ORDERED: 11/11/2019 HISTORY: abd. pain. COMPARISON: None. FINDINGS: The lung bases are clear. Within the abdomen, the abdominal gas pattern is within normal limits. There is no evidence of obstru ction or free air. There are scattered air-fluid levels throughout the abdomen. There are surgical cl ips in the left lower quadrant. There is been a previous cholecystectomy. No unusual calcifications a re seen. IMPRESSION: FINDINGS MOST CONSISTENT WITH MILD, GENERALIZED ILEUS.
[2019-11-11 11:18] LABS: Glucose,Whole Blood 163 mg/dL (75-99)
[2019-11-11] MEDS: OXcarbazepine 300 MG TAB PO SCH (11:32)
[2019-11-11] MEDS: AMPICILLIN-SULBACTAM 3 GM in SODIUM CHLORIDE 0.9% 100 ML IVPB SCH ×2 (13:06→18:20)
[2019-11-11] MEDS ORDERED: SODIUM CHLORIDE 0.9% 2,000 ML IV ONE (13:24)
--- NOTE | 2019-11-11 13:24 | P.GSCN ---
History of Present Illness Consult date: 11/11/19 History of present illness: CHIEF COMPLAINT: Abdominal pain HISTORY OF PRESENT ILLNESS: The patient is a 49-year-old female presents with generalized abdominal pain admitted yesterday 11/10/2019. She has personal history of chronic urinary tract infections. She reports not eating for 4 days. She also reports not passing flatus for more than 24-48 hours. Last bowel movement was yesterday and loose. She reports intractable nausea and vomiting bilious emesis yesterday. Since admission, abdominal pain has improved. She reports feeling a cramp in the right lower quadrant that is improved. Her history significant for open cholecystectomy including hysterectomy. No alleviating factors. She reports thirst. PAST MEDICAL HISTORY: See list and reviewed PAST SURGICAL HISTORY: See list and reviewed MEDICATIONS: See list and reviewed ALLERGIES: See list and reviewed SOCIAL HISTORY: See list and reviewed FAMILY HISTORY: See list and reviewed REVIEW OF ORGAN SYSTEMS: CONSTITUTIONAL: Had fevers over 103.0 EYES: Denies any trouble with vision. No glasses. HEENT: No difficulties with hearing. No nosebleeds. No difficulty swallowing. RESPIRATORY: Denies pneumonia. Denies any troubles with breathing or dyspnea on exertion. CARDIOVASCULAR: Denies any chest pain, palpitations, or recent heart attacks. Has hypertension GASTROINTESTINAL: Has gastroesophageal reflux disease. Has chronic diarrhea. Past history of cholecystectomy. GENITOURINARY: Denies any blood in urine or increased urinary frequency. NEUROLOGICAL: Denies any numbness or tingling along the distal extremities. No seizure disorders or headaches. MUSCULOSKELETAL: Has back pain, stiffness or joint arthritis. SKIN: No current skin cancer. No rash. PSYCHIATRIC: Has depression. Has anxiety. Has schizoaffective disorder ENDOCRINE: Has thyroid disorders. Has blood sugar glucose intolerance. On insulin. HEME/LYMPHATIC: Denies any lumps and bumps around the neck. No recent deep venous thrombosis. ALLERGY/IMMUNOLOGY: No immunoglobulin therapy. No immune deficiencies. BREAST: Denies current breast lumps, pain or nipple discharge. PHYSICAL EXAM: VITALS: Reviewed CONSTITUTIONAL: Well developed and in no acute distress. EYES: Conjuctivae without sclera icterus. Pupils are equally round and reactive to light. Extraocular movements grossly intact. HEAD, EARS, NOSE, THROAT: Moist buccal mucosa. Head is atraumatic, normocephalic. Hears conversational speech. No nasal drainage. NECK: Supple. No JV distention. No thyroidomegaly. RESPIRATORY: Non-labored respirations and equal bilateral excursions. No gross wheezes. CARDIOVASCULAR: Regular rate and rhythm. Extremities without moderate edema. Palpable 2+ radial pulses. ABDOMEN: Soft. Protuberant. No peritonitis. Well-healed right upper quadrant incision. Minimal tenderness right lower quadrant. No skin changes along the abdominal wall. LYMPH: No neck lymphadenopathy. MUSCULOSKELETAL: Nail and fingers with good capillary refill. SKIN: Warm and well perfused NEUROLOGIC: Cranial nerves II through XII grossly intact. Sensation upper and extremities intact. No focal or lateralizing signs. PSYCH: Flat affect. Alert and oriented to person, place and time. Displays appropriate insight. CLINCAL LABS: Reviewed. WBC on admission 19,600, elevated. This morning down to the 18,000. Urinalysis positive for nitrates and leukocyte esterase consistent with urinary tract infection. Coronavirus negative. Blood sugar glucose 246 down to 177. IMAGING: Independently reviewed CT of the abdomen and pelvis demonstrates dilation of stomach including small bowel. Air and fluid also identified throughout the colon. Small bowel containing ventral hernia below the umbilicus identified without obstruction. No transition point. Features more consistent with ileus. No free air. RADIOLOGY: Report reviewed a CT of the and pelvis with small bowel dilation 3.5 cm. No hydronephrosis. No free fluid within the pelvis. ASSESSMENT: 1. Abnormal computed tomography scan with dilated stomach 2. Abdominal pain 3. Leukocytosis 4. Urinary tract infection with sepsis 5. Dehydration PLAN: 1. Recommend IV fluid boluses at least 3-4 L secondary to extent dehydration. She only received 1 L normal saline yesterday despite 4 days of not eating. 2. Broad-spectrum IV antibiotics with the exception of cephalexin due to ALLERGY 3. May need small bowel follow-through to identify transition point should symptoms continue 4. Recommend lactate levels. 5. Start ice chips and popsicles. 6. Start PPN. Thank you for this kind consultation. Past Medical History Past Medical History: Diabetes Mellitus, Hyperlipidemia, Hypertension Additional Past Medical History / Comment(s): mutiple uti frequent, issues constipation vs diarrhea History of Any Multi-Drug Resistant Organisms: None Reported Past Surgical History: Section, Cholecystectomy, Hysterectomy, Orthope dic Surgery Additional Past Surgical History / Comment(s): bilat knees,thymus gland Past Anesthesia/Blood Transfusion Reactions: No Reported Reaction Past Psychological History: Anxiety, Depression, Panic Disorder, Schizoaffective Disorder Smoking Status: Never smoker Past Alcohol Use History: None Reported Past Drug Use History: None Reported - Past Family History Mother Family Medical History: Cancer Additional Family Medical History / Comment(s): lung Father Family Medical History: Myocardial Infarction ([place]) Medications and Allergies Home Medications Medication Instructions Recorded Confirmed Type Lisinopril [Zestril] 2.5 mg PO DAILY 10/12/18 11/10/19 History Omeprazole [PriLOSEC] 20 mg PO DAILY 01/12/19 11/10/19 History Aspirin [Adult Low Dose Aspirin EC] 81 mg PO DAILY 11/10/19 11/10/19 History Atorvastatin [Lipitor] 80 mg PO DAILY 11/10/19 11/10/19 History DULoxetine HCL [Cymbalta] 60 mg PO DAILY 11/10/19 11/10/19 History Diphenoxylate HCl/Atropine 1 - 2 tab PO QID PRN 11/10/19 11/10/19 History [Lomotil 2.5-0.025 mg Tablet] Ertugliflozin Pidolate [Steglatro] 15 mg PO DAILY 11/10/19 11/10/19 History Fenofibrate 160 mg PO DAILY 11/10/19 11/10/19 History Insulin Glargine,Hum.rec.anlog 90 units SQ BID 11/10/19 11/10/19 History [Basaglar Kwikpen U-100] Levothyroxine Sodium [Synthroid] 150 mcg PO DAILY 11/10/19 11/10/19 History OXcarbazepine [Trileptal] 150 mg PO HS 11/10/19 11/10/19 History OXcarbazepine [Trileptal] 300 mg PO DAILY 11/10/19 11/10/19 History Ondansetron [Zofran] 4 mg PO Q6H PRN 11/10/19 11/10/19 History PARoxetine HCL [Paxil] 40 mg PO DAILY 11/10/19 11/10/19 History metFORMIN HCL [Glucophage] 1,000 mg PO BID 11/10/19 11/10/19 History oxyCODONE HCL/ACETAMINOPHEN 1 tab PO BID PRN 11/10/19 11/10/19 History [Percocet 7.5-325 mg] risperiDONE 3 mg PO BID 11/10/19 11/10/19 History Ibuprofen [Motrin] 800 mg PO Q8H 11/11/19 11/11/19 History Allergies Allergy/AdvReac Type Severity Reaction Status Date / Time acetaminophen Allergy Rash/Hives Verified 11/10/19 20:27 [From Darvocet-N] cephalexin [From Keflex] Allergy Rash/Hives Verified 11/10/19 20:27 propoxyphene Allergy Rash/Hives Verified 11/10/19 20:27 [From Darvocet-N] Surgical - Exam Vital Signs Temp Pulse Resp BP Pulse Ox 98.2 F 122 H 18 124/78 96 11/10/19 16:22 11/10/19 16:22 11/10/19 16:22 11/10/19 16:22 11/10/19 16:22 Results - Labs 11/11/19 07:30 11/11/19 07:30 Abnormal Lab Results - Last 24 Hours (Table) 11/10/19 11/10/19 11/10/19 Range/Units 17:07 17:07 17:07 WBC 19.6 H (3.8-10.6) k/uL RBC 6.31 H (3.80-5.40) m/uL Hgb 19.2 H* (11.4-16.0) gm/dL Hct 57.3 H* (34.0-46.0) % Neutrophils # 13.0 H (1.3-7.7) k/uL Eosinophils # 1.4 H (0-0.7) k/uL Sodium 136 L (137-145) mmol/L Carbon Dioxide 20 L (22-30) mmol/L Glucose 246 H (74-99) mg/dL POC Glucose (mg/dL) (75-99) mg/dL Amylase <30 L (30-110) U/L Urine Appearance Cloudy H (Clear) Ur Specific [place] 1.039 H (1.001-1.035) Urine Protein 1+ H (Negative) Urine Glucose (UA) 4+ H (Negative) Urine Ketones 1+ H (Negative) Urine Nitrite Positive H (Negative) Urine Bilirubin 1+ H (Negative) Ur Leukocyte Esterase Small H (Negative) Urine WBC 19 H (0-5) /hpf Ur Squamous Epith Cells 6 H (0-4) /hpf Urine Bacteria Few H (None) /hpf Hyaline Casts 19 H (0-2) /lpf Urine Mucus Few H (None) /hpf 11/10/19 11/11/19 11/11/19 Range/Units 21:31 07:28 07:30 WBC 18.0 H (3.8-10.6) k/uL RBC (3.80-5.40) m/uL Hgb (11.4-16.0) gm/dL Hct 47.5 H (34.0-46.0) % Neutrophils # (1.3-7.7) k/uL Eosinophils # (0-0.7) k/uL Sodium (137-145) mmol/L Carbon Dioxide (22-30) mmol/L Glucose (74-99) mg/dL POC Glucose (mg/dL) 232 H 177 H (75-99) mg/dL Amylase (30-110) U/L Urine Appearance (Clear) Ur Specific [place] (1.001-1.035) Urine Protein (Negative) Urine Glucose (UA) (Negative) Urine Ketones (Negative) Urine Nitrite (Negative) Urine Bilirubin (Negative) Ur Leukocyte Esterase (Negative) Urine WBC (0-5) /hpf Ur Squamous Epith Cells (0-4) /hpf Urine Bacteria (None) /hpf Hyaline Casts (0-2) /lpf Urine Mucus (None) /hpf Microbiology - Last 24 Hours (Table) 11/10/19 17:07 Urine Culture - Preliminary Urine,Voided Diabetes panel 11/10/19 Range/Units 17:07 Sodium 136 L (137-145) mmol/L Potassium 3.8 (3.5-5.1) mmol/L Chloride 102 (98-107) mmol/L Carbon Dioxide 20 L (22-30) mmol/L BUN 17 (7-17) mg/dL Creatinine 0.91 (0.52-1.04) mg/dL Glucose 246 H (74-99) mg/dL Calcium 8.8 (8.4-10.2) mg/dL AST 19 (14-36) U/L ALT 13 (4-34) U/L Alkaline Phosphatase 113 (38-126) U/L Total Protein 6.8 (6.3-8.2) g/dL Albumin 4.0 (3.5-5.0) g/dL Calcium panel 11/10/19 Range/Units 17:07 Calcium 8.8 (8.4-10.2) mg/dL Albumin 4.0 (3.5-5.0) g/dL Pituitary panel 11/10/19 Range/Units 17:07 Sodium 136 L (137-145) mmol/L Potassium 3.8 (3.5-5.1) mmol/L Chloride 102 (98-107) mmol/L Carbon Dioxide 20 L (22-30) mmol/L BUN 17 (7-17) mg/dL Creatinine 0.91 (0.52-1.04) mg/dL Glucose 246 H (74-99) mg/dL Calcium 8.8 (8.4-10.2) mg/dL Adrenal panel 11/10/19 Range/Units 17:07 Sodium 136 L (137-145) mmol/L Potassium 3.8 (3.5-5.1) mmol/L Chloride 102 (98-107) mmol/L Carbon Dioxide 20 L (22-30) mmol/L BUN 17 (7-17) mg/dL Creatinine 0.91 (0.52-1.04) mg/dL Glucose 246 H (74-99) mg/dL Calcium 8.8 (8.4-10.2) mg/dL Total Bilirubin 0.3 (0.2-1.3) mg/dL AST 19 (14-36) U/L ALT 13 (4-34) U/L Alkaline Phosphatase 113 (38-126) U/L Total Protein 6.8 (6.3-8.2) g/dL Albumin 4.0 (3.5-5.0) g/dL Assessment and Plan (1) Sepsis Current Visit: Yes Status: Acute Code(s): A41.9 - SEPSIS, UNSPECIFIED ORGANI SM SNOMED Code(s): 64047221 (2) Ileus Current Visit: Yes Status: Acute Code(s): K56.7 - ILEUS, UNSPECIFIED SNOMED Code(s): 091207186 (3) Abdominal pain Current Visit: Yes Status: Acute Code(s): R10.9 - UNSPECIFIED ABDOMINAL PAIN SNOMED Code(s): 77438515 (4) Dehydration Current Visit: Yes Status: Acute Code(s): E86.0 - DEHYDRATION SNOMED Code(s): 26144451 (5) Leukocytosis Current Visit: Yes Status: Acute Code(s): D72.829 - ELEVATED WHITE BLOOD CELL COUNT, UNSPECIFIED SNOMED Code(s): 340171729 (6) Urinary tract infection Current Visit: Yes Status: Acute Code(s): N39.0 - URINARY TRACT INFECTION, SITE NOT SPECIFIED SNOMED Code(s): 35565839
--- NOTE | 2019-11-11 14:06 | PN ---
PROGRESS NOTE DATE OF SERVICE: 11/11/2019 CHIEF COMPLAINT: Abdominal pain. HISTORY OF PRESENT ILLNESS: This lady is not feeling any better. She is not vomiting, but she is n.p.o. She has had no fever or chills. She states that the lower abdominal discomfort is getting worse and seems to be more over her mid lower abdomen. PHYSICAL EXAMINATION: Vital signs normal. Chest is clear. Cardiac exam is normal. Abdomen is soft and she has some moderate tenderness in the lower quadrant across both sides. There are no masses or visceromegaly. There is no rebound. Bowel sounds are hyperactive. IMPRESSION: 1. Lower abdominal pain. 2. Leukocytosis. PLAN: 1. Repeat laboratory studies. 2. Flat and upright films of the abdomen. 3. Consult with Infectious Disease. 4. Await surgery evaluation. MMODL / IJN: [id number] /
--- NOTE | 2019-11-11 14:06 | HP ---
HISTORY AND PHYSICAL CHIEF COMPLAINT: Abdominal pain and leukocytosis. HISTORY OF PRESENT ILLNESS: This is another admission for this 49-year-old obese white female. She came to the office with a complaint of several days of nausea, vomiting, diarrhea. She had a appointment and was treated with Zofran and diarrhea was brought under control, but she still had nausea and vomiting and then she developed increasing lower abdominal pain. She had no hematemesis, melena, hematochezia, urinary complaints, flank pain, etc. She came to the office where she was having more and more pain in the lower abdomen, more to the right than the left. She was slightly diaphoretic. Laboratory studies were obtained and her white count came back 22,000. She was sent to the emergency room. There her CT did not demonstrate appendicitis. It was thought that this may be related to a urinary tract infection, but her symptoms were not particularly consistent with that. She was admitted for IV fluids, analgesics, further laboratory testing and general surgery consult. REVIEW OF SYSTEMS: She has had no headaches, neurologic problems, change in vision or hearing, shortness of breath, cough, hemoptysis, chest pain, hypertension, murmurs, rheumatic fever, renal failure, frequency, urgency and dysuria, incontinence, etc. She is diabetic. Past medical history, family history, personal and social histories reveal that she is ALLERGIC TO CEPHALOSPORINS. MEDICATIONS: She is currently on fluoxetine 60 mg once a day, Ozempic 0.5 once a week, Oxcarbazepine 150 mg 1 in the morning and 2 at night, Steglatro 15 mg once a day, paroxetine 40 mg once a day, Basaglar 90 units twice a day, Risperidone 3 mg once a day, vitamin D3, fenofibrate 160 mg once a day, levothyroxine 0.15 mg once a day, atorvastatin 80 mg q.h.s., lisinopril 2.5 once a day, metformin 1 gram twice a day, omeprazole 20 mg once a day. The remainder of her hospitalization is unremarkable. She had psychiatric hospitalizations in the 90s. She has had a hysterectomy, cholecystectomy, T and A, and right knee replacement. She does not smoke. PHYSICAL EXAMINATION: Blood pressure is 108/60 with a pulse of 98, respirations of 36, and temperature 96.5. In general she appeared to be acutely ill. She was slightly diaphoretic. SKIN color was normal. HEAD, ears, eyes, nose, mouth, and throat were normal. NECK was supple. CHEST is clear to auscultation. CARDIAC exam demonstrated sinus tachycardia. The ABDOMEN is protuberant, soft, and she had lower abdominal tenderness. There are no masses. Bowel sounds are present. There is no significant guarding. EXTREMITIES are normal. IMPRESSION: 1. Viral gastroenteritis. 2. Lower abdominal pain with leukocytosis, etiology unknown. 3. Insulin-dependent diabetes mellitus. PLAN: 1. Bed rest. 2. IV fluids. 3. Appropriate cultures. 4. Consult Infectious Disease. 5. Consult gastroenteritis. MMODL / IJN: [id number] /
[2019-11-11 15:57] VITALS: BMI 43.7
[2019-11-11 17:09] LABS: Glucose,Whole Blood 131 mg/dL (75-99)
[2019-11-11 17:35] LABS: Hemoglobin A1C 8.5 % (4.0-6.0)
[2019-11-11 17:42] LABS: Ionized Calcium 4.3 mg/dL (4.5-5.3)
[2019-11-11 17:49] LABS: Magnesium 1.3 mg/dL (1.6-2.3); Phosphorus 2.9 mg/dL (2.5-4.5)
[2019-11-11] MEDS ORDERED: MVI, ADULT NO.4 WITH VIT K 10 ML, TRACE (CONC-1ML/DOSE) 1 ML in AMINO ACID 4.25%-D10W+L... IV ONE ×3 (19:30)
[2019-11-11] MEDS: FAT EMULSION 20% 250 ML in EMPTY BAG 1 BAG IV SCH (19:57)
[2019-11-11] MEDS: OXcarbazepine 150 MG TAB PO SCH (21:23)
[2019-11-11] MEDS: MAGNESIUM SULFATE-D5W PMX 1 GM in DEXTROSE/WATER 1 100ML.BAG IVPB SCH (22:51)
[2019-11-12] MEDS: AMPICILLIN-SULBACTAM 3 GM in SODIUM CHLORIDE 0.9% 100 ML IVPB SCH ×4 (00:25→19:08)
[2019-11-12 00:29] LABS: Glucose,Whole Blood 145 mg/dL (75-99)
[2019-11-12] MEDS: INSULIN ASPART (NovoLOG) 100 UNIT/ML VIAL SQ SCH ×4 (00:35→18:00)
[2019-11-12] MEDS: MAGNESIUM SULFATE-D5W PMX 1 GM in DEXTROSE/WATER 1 100ML.BAG IVPB SCH ×3 (01:43→04:36)
[2019-11-12] MEDS: SODIUM CHLORIDE 0.9% 1,000 ML IV SCH ×3 (02:21→17:39)
[2019-11-12 05:49] LABS: Glucose,Whole Blood 183 mg/dL (75-99)
[2019-11-12 07:15] LABS: HCT 38.2 % (34.0-46.0); MCH 31.3 pg (25.0-35.0); MCHC 34.1 g/dL (31.0-37.0); MCV 91.8 fL (80.0-100.0); Mean Platelet Volume 8.1; Platelet Count 289 k/uL (150-450); RBC 4.16 m/uL (3.80-5.40); RDW 13.5 % (11.5-15.5); WBC 15.8 k/uL (3.8-10.6)
[2019-11-12 07:22] LABS: African American GFR (CKD) >90 (>60 ml/min/1.73 sqM); Anion Gap 5 mmol/L; Carbon Dioxide 25 mmol/L (22-30); Chloride 107 mmol/L (98-107); Non-African American GFR(CKD) >90 (>60 ml/min/1.73 sqM); Phosphorus 2.7 mg/dL (2.5-4.5); Sodium 137 mmol/L (137-145)
[2019-11-12 07:38] LABS: Blood Urea Nitrogen 10 mg/dL (7-17); Calcium 7.1 mg/dL (8.4-10.2); Glucose 179 mg/dL (74-99); Magnesium 2.2 mg/dL (1.6-2.3); Potassium 2.8 mmol/L (3.5-5.1)
[2019-11-12 08:08] LABS: Band Neutrophils % 4 %; Eosinophils # (M) 1.58 k/uL (0-0.7); Lymphocytes # (M) 3.63 k/uL (1.0-4.8); Metamyelocytes # (M) 0.47 k/uL (0); Metamyelocytes % 3 %; Monocytes # (M) 0.63 k/uL (0-1.0); Myelocytes # (M) 0.32 k/uL (0); Myelocytes % 2 %; Neutrophils % (M) 56 %; Nucleated Red Blood Cells 0 /100 WBC (0-0); Total Cells Counted 200
[2019-11-12 08:09] LABS: Poikilocytosis (M) Present
[2019-11-12] MEDS ORDERED: Potassium Replacement Protocol 1 EACH MISC MISCELLANE PRN (08:21)
[2019-11-12] MEDS ORDERED: SODIUM CHLORIDE 0.9% 1,000 ML IV ONE (08:23)
[2019-11-12] MEDS: POTASSIUM CHLORIDE 10 MEQ in WATER FOR INJECTION 1 100ML.BAG IVPB SCH ×6 (08:47→17:39)
[2019-11-12] MEDS: HYDROmorphone 0.5 MG/0.5 ML SYRINGE IVP PRN ×2 (08:47→21:12)
[2019-11-12] MEDS: OXcarbazepine 300 MG TAB PO SCH (08:47)
--- NOTE | 2019-11-12 08:51 | P.PN ---
Subjective Progress Note Date: 11/12/19 CHIEF COMPLAINT: Abdominal pain HISTORY OF PRESENT ILLNESS: The patient is a 49-year-old female presents with generalized abdominal pain admitted 11/10/2019. She presented with intractable nausea and vomiting including diffuse abdominal pain worse in the right lower quadrant yesterday. She reports some passage of flatus but still very tender abdomen even with ambulation. White blood cell count is now improved from 19,600 to 15,800. She received at least 3 L normal saline bolus for severe dehydration. She was tachycardic throughout the night. REVIEW OF ORGAN SYSTEMS: No fevers or chills. No productive sputum. No chest pain. PHYSICAL EXAM: VITALS: Reviewed CONSTITUTIONAL: Well developed and in no acute distress. EYES: Conjuctivae without sclera icterus. Pupils are equally round and reactive to light. Extraocular movements grossly intact. HEAD, EARS, NOSE, THROAT: Moist buccal mucosa. Head is atraumatic, normocephalic. Hears conversational speech. No nasal drainage. NECK: Supple. No JV distention. No thyroidomegaly. RESPIRATORY: Non-labored respirations and equal bilateral excursions. No gross wheezes. CARDIOVASCULAR: Tachycardic. ABDOMEN: Soft. Protuberant. Diffusely tender worse in the right lower quadrant. Mild rigidity. LYMPH: No neck lymphadenopathy. MUSCULOSKELETAL: Nail and fingers with good capillary refill. SKIN: Warm and well perfused NEUROLOGIC: Cranial nerves II through XII grossly intact. Sensation upper and extremities intact. No focal or lateralizing signs. PSYCH: Flat affect. Alert and oriented to person, place and time. Displays appropriate insight. CLINCAL LABS: Reviewed. WBC on admission 19,600, down to 15,800. Potassium 2.8. Magnesium was 1.3. ASSESSMENT: 1. Abnormal computed tomography scan with dilated stomach 2. Abdominal pain 3. Leukocytosis 4. Urinary tract infection with sepsis 5. Dehydration 6. Small bowel obstruction. 7. Hypomagnesemia 8. Hypokalemia PLAN: 1. For her low magnesium, I ordered magnesium 4 g were administered overnight 2. This morning, potassium is low, 60 mEq of potassium ordered via IV 3. Her abdominal exam has now changed despite minimal passage of flatus. As she is persistently tender, exploratory laparotomy and small bowel resection including possible intensive care unit postop recovery were described. All questions were addressed. 4. Overall, patient presents for high surgical risk as an emergency exploratory laparotomy including with morbid obesity, BMI over 45 and presentation of sepsis Objective - Vital Signs Vital signs: Vital Signs Temp 98.3 F 11/12/19 05:13 Pulse 91 11/12/19 05:13 Resp 16 11/12/19 05:13 BP 120/72 11/12/19 05:13 Pulse Ox 95 11/12/19 05:13 Intake & Output 11/11/19 11/12/19 11/12/19 18:59 06:59 18:59 Intake Total 1040 1500 Balance 1040 1500 Weight 108.409 kg 112 kg Intake: Intake, IV Titration 1040 1500 Amount Fat Emulsion 20% 250 ml 160 In Empty Bag 1 bag @ 20. 833 mls/hr IV DAILY@1930 [facility] Rx#:[id number] Magnesium Sulfate-D5w Pmx 400 1 gm In Dextrose/Water 1 100ml.bag @ 100 mls/hr IVPB Q1H [facility] Rx#: [id number] Mvi, Adult No.4 with Vit 400 K 10 ml Trace (Conc-1Ml/ Dose) 1 ml In Amino Acid 4.25%-D10w+Lytes*E* 1,000 ml @ 50 mls/hr IV . [id number] [facility] Rx#:[id number] Sodium Chloride 0.9% 1, 1040 540 000 ml @ 130 mls/hr IV . Q7H42M [facility] Rx#:[id number] Other: Voiding Method Toilet Toilet # Voids 1 - Labs CBC & Chem 7: 11/12/19 06:38 11/12/19 06:38 Labs: Abnormal Lab Results - Last 24 Hours (Table) 11/11/19 11/11/19 11/11/19 Range/Units 07:30 07:30 07:30 WBC (3.8-10.6) k/uL Neutrophils # (Manual) 11.70 H (1.3-7.7) k/uL Eosinophils # (Manual) 1.26 H (0-0.7) k/uL Metamyelocytes # (Man) 0.72 H (0) k/uL Myelocytes # (Manual) 0.36 H (0) k/uL Potassium 3.4 L (3.5-5.1) mmol/L Glucose 171 H (74-99) mg/dL POC Glucose (mg/dL) (75-99) mg/dL Hemoglobin A1c 8.5 H (4.0-6.0) % Calcium 7.4 L (8.4-10.2) mg/dL Ionized Calcium Benitez (4.5-5.3) mg/dL Magnesium (1.6-2.3) mg/dL Total Protein 5.1 L (6.3-8.2) g/dL Albumin 2.8 L (3.5-5.0) g/dL Triglycerides (<150) mg/dL 11/11/19 11/11/19 11/11/19 Range/Units 11:17 16:59 17:08 WBC (3.8-10.6) k/uL Neutrophils # (Manual) (1.3-7.7) k/uL Eosinophils # (Manual) (0-0.7) k/uL Metamyelocytes # (Man) (0) k/uL Myelocytes # (Manual) (0) k/uL Potassium (3.5-5.1) mmol/L Glucose (74-99) mg/dL POC Glucose (mg/dL) 163 H 131 H (75-99) mg/dL Hemoglobin A1c (4.0-6.0) % Calcium (8.4-10.2) mg/dL Ionized Calcium [place] 4.3 L (4.5-5.3) mg/dL Magnesium 1.3 L (1.6-2.3) mg/dL Total Protein (6.3-8.2) g/dL Albumin (3.5-5.0) g/dL Triglycerides 184 H (<150) mg/dL 11/12/19 11/12/19 11/12/19 Range/Units 00:27 05:47 06:38 WBC 15.8 H (3.8-10.6) k/uL Neutrophils # (Manual) 9.40 H (1.3-7.7) k/uL Eosinophils # (Manual) 1.58 H (0-0.7) k/uL Metamyelocytes # (Man) 0.47 H (0) k/uL Myelocytes # (Manual) 0.32 H (0) k/uL Potassium (3.5-5.1) mmol/L Glucose (74-99) mg/dL POC Glucose (mg/dL) 145 H 183 H (75-99) mg/dL Hemoglobin A1c (4.0-6.0) % Calcium (8.4-10.2) mg/dL Ionized Calcium [place] (4.5-5.3) mg/dL Magnesium (1.6-2.3) mg/dL Total Protein (6.3-8.2) g/dL Albumin (3.5-5.0) g/dL Triglycerides (<150) mg/dL 11/12/19 Range/Units 06:38 WBC (3.8-10.6) k/uL Neutrophils # (Manual) (1.3-7.7) k/uL Eosinophils # (Manual) (0-0.7) k/uL Metamyelocytes # (Man) (0) k/uL Myelocytes # (Manual) (0) k/uL Potassium 2.8 L (3.5-5.1) mmol/L Glucose 179 H (74-99) mg/dL POC Glucose (mg/dL) (75-99) mg/dL Hemoglobin A1c (4.0-6.0) % Calcium 7.1 L (8.4-10.2) mg/dL Ionized Calcium [place] (4.5-5.3) mg/dL Magnesium (1.6-2.3) mg/dL Total Protein (6.3-8.2) g/dL Albumin (3.5-5.0) g/dL Triglycerides (<150) mg/dL Microbiology - Last 24 Hours (Table) 11/10/19 17:07 Urine Culture - Preliminary Urine,Voided Gram Neg Bacilli 11/10/19 17:07 Blood Culture - Preliminary Blood No Growth after 24 hours Assessment and Plan (1) Sepsis Current Visit: Yes Status: Acute Code(s): A41.9 - SEPSIS, UNSPECIFIED ORGANISM SNOMED Code(s): 41463164 (2) Ileus Current Visit: Yes Status: Acute Code(s): K56.7 - ILEUS, UNSPECIFIED SNOMED Code(s): 396730877 (3) Abdominal pain Current Visit: Yes Status: Acute Code(s): R10.9 - UNSPECIFIED ABDOMINAL PAIN SNOMED Code(s): 39655893 (4) Dehydration Current Visit: Yes Status: Acute Code(s): E86.0 - DEHYDRATION SNOMED Code(s): 10736872 (5) Leukocytosis Current Visit: Yes Status: Acute Code(s): D72.829 - ELEVATED WHITE BLOOD CELL COUNT, UNSPECIFIED SNOMED Code(s): 502812581 (6) Urinary tract infection Current Visit: Yes Status: Acute Code(s): N39.0 - URINARY TRACT INFECTION, SITE NOT SPECIFIED SNOMED Code(s): 19192628 (7) Hypokalemia Current Visit: Yes Status: Acute Code(s): E87.6 - HYPOKALEMIA SNOMED Code(s): 99461793 (8) Hypomagnesemia Current Visit: Yes Status: Acute Code(s): E83.42 - HYPOMAGNESEMIA SNOMED Code(s): 563057508 (9) Hypovolemic shock Current Visit: Yes Status: Acute Code(s): R57.1 - HYPOVOLEMIC SHOCK SNOMED Code(s): 22486015
[2019-11-12] MEDS ORDERED: IV FLUID CONTINUATION 700 ML IV ONE (10:19)
[2019-11-12] MEDS ORDERED: SODIUM CHLORIDE 0.9% 50 ML with ceFAZolin 2,000 MG IV ONE ×2 (10:19)
--- NOTE | 2019-11-12 10:35 | P.CONS ---
History of Present Illness - Reason for Consult Consult date: 11/11/19 leukocytosis and abd pain Requesting physician: Ramin Lopes - Chief Complaint abd pain and vomiting x few days - History of Present Illness Patient is a 49-year-old female presented to the ER last evening with a chief complaints of abdominal pain the patient has been complaining of right lower abdominal pain for last several days however that has got worse over the last 24-hour patient also has a complaint of feeling nauseated and unable to keep anything down and has been vomiting as well patient did have a fever of 103 F with her primary care physician office for the patient taken some Motrin with persistent abdominal pain describing to be more of a colicky in nature at times sharp intensity almost 7-8 out of 10 and no radiation with associated nausea and vomiting and fever with the symptom the patient presented to hospital on arrival to the ER the patient has been afebrile though she was noticed to have a white count of 19.6 thousand repeat this morning is 18.0 patient creatinine has been normal liver enzymes are normal amylase is less than 30 lipase of 79 urine has been positive with small leukocyte esterase and 19 WBC present significant urinary symptoms patient did have a chest x-ray which was normal she also have a CT of abdominal pelvis which shows mild dilated fluid-filled small bowel loops in the lower abdomen and also involving more proximal jejunum no transition point partially incarcerated lower abdominal ventral hernia inferior and likely secondary small bowel patient has been started on Levaquin because of her ceph alexin allergy infectious disease was consulted for further management of antibiotic therapy, patient mention allergy to cephalexin with rash however has taken penicillin afterwards without any problem Review of Systems Positive point has been mentioned in HPI rest of the systems are negative Past Medical History Past Medical History: Diabetes Mellitus, Hyperlipidemia, Hypertension Additional Past Medical History / Comment(s): mutiple uti frequent, issues constipation vs diarrhea History of Any Multi-Drug Resistant Organisms: None Reported Past Surgical History: Section, Cholecystectomy, Hysterectomy, Orthopedic Surgery Additional Past Surgical History / Comment(s): bilat knees,thymus gland Past Anesthesia/Blood Transfusion Reactions: No Reported Reaction Past Psychological History: Anxiety, Depression, Panic Disorder, Schizoaffective Disorder Smoking Status: Never smoker Past Alcohol Use History: None Reported Past Drug Use History: None Reported - Past Family History Mother Family Medical History: Cancer Additional Family Medical History / Comment(s): lung Father Family Medical History: Myocardial Infarction (DE) Medications and Allergies Home Medications Medication Instructions Recorded Confirmed Type Lisinopril [Zestril] 2.5 mg PO DAILY 10/12/18 11/10/19 History Omeprazole [PriLOSEC] 20 mg PO DAILY 01/12/19 11/10/19 History Aspirin [Adult Low Dose Aspirin EC] 81 mg PO DAILY 11/10/19 11/10/19 History Atorvastatin [Lipitor] 80 mg PO DAILY 11/10/19 11/10/19 History DULoxetine HCL [Cymbalta] 60 mg PO DAILY 11/10/19 11/10/19 History Diphenoxylate HCl/Atropine 1 - 2 tab PO QID PRN 11/10/19 11/10/19 History [Lomotil 2.5-0.025 mg Tablet] Ertugliflozin Pidolate [Steglatro] 15 mg PO DAILY 11/10/19 11/10/19 History Fenofibrate 160 mg PO DAILY 11/10/19 11/10/19 History Insulin Glargine,Hum.rec.anlog 50 units SQ BID 11/10/19 11/11/19 History [Basaglar Kwikpen U-100] Levothyroxine Sodium [Synthroid] 150 mcg PO DAILY 11/10/19 11/10/19 History OXcarbazepine [Trileptal] 150 mg PO HS 11/10/19 11/10/19 History OXcarbazepine [Trileptal] 300 mg PO DAILY 11/10/19 11/10/19 History Ondansetron [Zofran] 4 mg PO Q6H PRN 11/10/19 11/10/19 History PARoxetine HCL [Paxil] 40 mg PO DAILY 11/10/19 11/10/19 History metFORMIN HCL [Glucophage] 1,000 mg PO BID 11/10/19 11/10/19 History oxyCODONE HCL/ACETAMINOPHEN 1 tab PO BID PRN 11/10/19 11/10/19 History [Percocet 7.5-325 mg] risperiDONE 3 mg PO HS 11/10/19 11/11/19 History Ibuprofen [Motrin] 800 mg PO Q8H 11/11/19 11/11/19 History Semaglutide [Ozempic] 2 mg SQ WEEKLY 11/11/19 11/11/19 History risperiDONE 2 mg PO QAM 11/11/19 11/11/19 History Allergies Allergy/AdvReac Type Severity Reaction Status Date / Time acetaminophen Allergy Rash/Hives Verified 11/10/19 20:27 [From Darvocet-N] cephalexin [From Keflex] Allergy Rash/Hives Verified 11/10/19 20:27 propoxyphene Allergy Rash/Hives Verified 11/10/19 20:27 [From Darvocet-N] Physical Exam Vitals: Vital Signs Temp Pulse Pulse Resp BP BP Pulse Ox 11/11/19 12:05 98.3 F 110 H 17 109/66 96 11/11/19 05:05 98.5 F 102 H 18 118/77 92 L 11/10/19 21:42 98 F 82 16 105/65 98 11/10/19 19:25 98.0 F 117 H 18 128/87 97 11/10/19 18:35 102 H 18 100/63 96 11/10/19 16:22 98.2 F 122 H 18 124/78 96 Intake and Output 11/10/19 11/11/19 11/11/19 22:59 06:59 14:59 Intake Total 780 Balance 780 Intake: Intake, IV Titration 780 Amount Sodium Chloride 0.9% 1, 780 000 ml @ 130 mls/hr IV . Q7H42M [facility] Rx#:[id number] Other: Voiding Method Toilet Toilet # Voids 1 1 Weight 108.409 kg GENERAL DESCRIPTION: Middle-aged female lying in bed, no distress. No tachypnea or accessory muscle of respiration use. HEENT: Shows Pallor , no scleral icterus. Oral mucous membrane is dry. NECK: Trachea central, no thyromegaly. LUNGS: Unlabored breathing. Clear to auscultation anteriorly. No wheeze or crackle. HEART: S1, S2, regular rate and rhythm. ABDOMEN: Soft, periumbilical tenderness , no guarding or rigidity EXTREMITIES: No edema of feet. SKIN: No rash, no masses palpable. NEUROLOGICAL: The patient is awake, alert, oriented x3, mood and affect normal. Results CBC & Chem 7: 11/12/19 06:38 11/12/19 06:38 Labs: Abnormal Lab Results - Last 24 Hours (Table) 06/05/1911/10/19 11/10/19 Range/Units 17:07 17:07 17:07 WBC 19.6 H (3.8-10.6) k/uL RBC 6.31 H (3.80-5.40) m/uL Hgb 19.2 H* (11.4-16.0) gm/dL Hct 57.3 H* (34.0-46.0) % Neutrophils # 13.0 H (1.3-7.7) k/uL Neutrophils # (Manual) (1.3-7.7) k/uL Eosinophils # 1.4 H (0-0.7) k/uL Eosinophils # (Manual) (0-0.7) k/uL Metamyelocytes # (Man) (0) k/uL Myelocytes # (Manual) (0) k/uL Sodium 136 L (137-145) mmol/L Potassium (3.5-5.1) mmol/L Carbon Dioxide 20 L (22-30) mmol/L Glucose 246 H (74-99) mg/dL POC Glucose (mg/dL) (75-99) mg/dL Calcium (8.4-10.2) mg/dL Total Protein (6.3-8.2) g/dL Albumin (3.5-5.0) g/dL Amylase <30 L (30-110) U/L Urine Appearance Cloudy H (Clear) Ur Specific [place] 1.039 H (1.001-1.035) Urine Protein 1+ H (Negative) Urine Glucose (UA) 4+ H (Negative) Urine Ketones 1+ H (Negative) Urine Nitrite Positive H (Negative) Urine Bilirubin 1+ H (Negative) Ur Leukocyte Esterase Small H (Negative) Urine WBC 19 H (0-5) /hpf Ur Squamous Epith Cells 6 H (0-4) /hpf Urine Bacteria Few H (None) /hpf Hyaline Casts 19 H (0-2) /lpf Urine Mucus Few H (None) /hpf 11/10/19 11/11/19 11/11/19 Range/Units 21:31 07:28 07:30 WBC 18.0 H (3.8-10.6) k/uL RBC (3.80-5.40) m/uL Hgb (11.4-16.0) gm/dL Hct 47.5 H (34.0-46.0) % Neutrophils # (1.3-7.7) k/uL Neutrophils # (Manual) 11.70 H (1.3-7.7) k/uL Eosinophils # (0-0.7) k/uL Eosinophils # (Manual) 1.26 H (0-0.7) k/uL Metamyelocytes # (Man) 0.72 H (0) k/uL Myelocytes # (Manual) 0.36 H (0) k/uL Sodium (137-145) mmol/L Potassium (3.5-5.1) mmol/L Carbon Dioxide (22-30) mmol/L Glucose (74-99) mg/dL POC Glucose (mg/dL) 232 H 177 H (75-99) mg/dL Calcium (8.4-10.2) mg/dL Total Protein (6.3-8.2) g/dL Albumin (3.5-5.0) g/dL Amylase (30-110) U/L Urine Appearance (Clear) Ur Specific [place] (1.001-1.035) Urine Protein (Negative) Urine Glucose (UA) (Negative) Urine Ketones (Negative) Urine Nitrite (Negative) Urine Bilirubin (Negative) Ur Leukocyte Esterase (Negative) Urine WBC (0-5) /hpf Ur Squamous Epith Cells (0-4) /hpf Urine Bacteria (None) /hpf Hyaline Casts (0-2) /lpf Urine Mucus (None) /hpf 11/11/19 11/11/19 Range/Units 07:30 11:17 WBC (3.8-10.6) k/uL RBC (3.80-5.40) m/uL Hgb (11.4-16.0) gm/dL Hct (34.0-46.0) % Neutrophils # (1.3-7.7) k/uL Neutrophils # (Manual) (1.3-7.7) k/uL Eosinophils # (0-0.7) k/uL Eosinophils # (Manual) (0-0.7) k/uL Metamyelocytes # (Man) (0) k/uL Myelocytes # (Manual) (0) k/uL Sodium (137-145) mmol/L Potassium 3.4 L (3.5-5.1) mmol/L Carbon Dioxide (22-30) mmol/L Glucose 171 H (74-99) mg/dL POC Glucose (mg/dL) 163 H (75-99) mg/dL Calcium 7.4 L (8.4-10.2) mg/dL Total Protein 5.1 L (6.3-8.2) g/dL Albumin 2.8 L (3.5-5.0) g/dL Amylase (30-110) U/L Urine Appearance (Clear) Ur Specific [place] (1.001-1.035) Urine Protein (Negative) Urine Glucose (UA) (Negative) Urine Ketones (Negative) Urine Nitrite (Negative) Urine Bilirubin (Negative) Ur Leukocyte Esterase (Negative) Urine WBC (0-5) /hpf Ur Squamous Epith Cells (0-4) /hpf Urine Bacteria (None) /hpf Hyaline Casts (0-2) /lpf Urine Mucus (None) /hpf Microbiology - Last 24 Hours (Table) 11/10/19 17:07 Urine Culture - Preliminary Urine,Voided Assessment and Plan Assessment: 1-patient presented hospital with sepsis in this patient did have a fever she did have tachycardia elevated white count with diffuse abdominal pain and abnormal CT concerning for possible incarcerated ventral hernia with a loop of bowel likely the source of her sepsis and will need to call for the enteric gram-negative pathogen to be the likely bacteria responsible for the sepsis 2-patient with cephalexin allergy that would limit the number of antibiotics safe to use however his taken penicillin without any problem (1) Incarcerated hernia Current Visit: Yes Status: Acute Code(s): K46.0 - UNSP ABDOMINAL HERNIA WITH OBSTRUCTION, WITHOUT GANGRENE SNOMED Code(s): 21682941 (2) Sepsis Current Visit: Yes Status: Acute Code(s): A41.9 - SEPSIS, UNSPECIFIED ORGANISM SNOMED Code(s): 76135600 Plan: 1-discontinue Levaquin 2-start the patient on Unasyn 3 g every 6 hours 3-IV fluids 4-await surgery evaluation We will follow on clinical condition and cultures to further adjust medication if needed Thank you for this consultation we will follow the patient along with you Time with Patient: Greater than 30
[2019-11-12] MEDS ORDERED: LACTATED RINGERS 1,000 ML IV ONE ×2 (12:05→13:32)
[2019-11-12] MEDS ORDERED: 1: MVI, ADULT NO.4 WITH VIT K 10 ML, TRACE (CONC-1ML/DOSE) 1 ML in AMINO ACID 4.25%-D10W IV SCH ×3 (14:00)
[2019-11-12] MEDS ORDERED: HYDROmorphone 1 MG/ML 1 ML SYRINGE IVP ONE ×4 (14:50→15:31)
[2019-11-12] MEDS ORDERED: KETOROLAC 30 MG/ML 1 ML VIAL IVP ONE (15:00)
--- NOTE | 2019-11-12 15:00 | P.OP ---
Date of Procedure: 11/12/19 Description of Procedure: SURGEON: GLEN KHAN MD ASSOCIATE ACCOUNT MANAGER: None. PREOPERATIVE DIAGNOSES: 1. Small bowel obstruction with peritonitis 2. Morbid obesity due to excess calories, BMI 48.0 3. History multiple abdominal surgeries 4. Diabetes type 2, insulin-dependent 5. Sepsis 6. Severe dehydration 7. Depressive disorder 8. Chronic pain syndrome 9. Gastroesophageal reflux disease 10. Hypertensive heart disease 11. Hypothyroidism 12. Hyperlipidemia 13. Generalized anxiety disorder 14. Schizoaffective disorder 15. Panic disorder 16. Recurrent urinary tract infections, Klebsiella pneumonia 17. Coronavirus negative POSTOPERATIVE DIAGNOSES: 1. Small bowel obstruction with peritonitis 2. Morbid obesity due to excess calories, BMI 48.0 3. History multiple abdominal surgeries 4. Diabetes type 2, insulin-dependent 5. Sepsis 6. Severe dehydration 7. Depressive disorder 8. Chronic pain syndrome 9. Gastroesophageal reflux disease 10. Hypertensive heart disease 11. Hypothyroidism 12. Hyperlipidemia 13. Generalized anxiety disorder 14. Schizoaffective disorder 15. Panic disorder 16. Recurrent urinary tract infections, Klebsiella pneumonia 17. Coronavirus negative 18. Small bowel obstruction due to adhesive band disease right lower quadrant and pelvis 19. Incisional hernia lower midline incarcerated, 5-cm Procedure(s) Performed: 1. Open exploratory laparotomy with extensive lysis adhesions over 2.5 hours 2. Reduction of incarcerated umbilical ventral hernia 5 cm COMPLICATIONS: None. Anesthesia: GETA Estimated Blood Loss (ml): 150 Pathology: none sent Condition: stable Disposition: floor Operative Findings: 1. Dense adhesive band disease from prior surgery of the pelvis especially along the right lower quadrant involving the ileum. 2. Over 2.5 hours of extensive lysis of adhesions with repair of serosal tear ileum 5 mm oversewn with 3-0 silk 3. Immediately upon release of mid jejunum to ileum, gaseous distention of the cecum to transverse colon and sigmoid colon consistent with release of small bowel obstruction 4. Incarcerated incisional hernia reduced along the umbilicus, 5 cm INDICATIONS: The patient is a 49-year-old female who presents with acute onset abdominal pain. Diagnosis studies were consistent with bowel obstruction. Despite conservative measures including nasogastric tube decompression, her symptoms did not resolve. Surgical intervention with laparotomy and bowel resection was described. Benefits and risks, including but not limited to bleeding, infection, need for further surgery, recovery and intensive care unit for reviewed. Informed consent was obtained. DESCRIPTION OF PROCEDURE: Patient was brought to the operating room, laid in supine position. After general induction, the abdomen was prepped and draped in standard sterile fashion. Prior to incision, a timeout protocol was confirmed with surgical team regarding patient's name including procedure to be performed. Preoperative medications including antibiotics were given. Additionally, bilateral SCDs including heparin 5000 units was administered. The skin was covered with Ioban draping to minimize infection from skin imer. After timeout protocol was completed, the abdomen was entered along the upper abdomen below the xiphoid to the umbilicus using a #10 blade. She had very thick subcutaneous tissue over 8 cm adding complexity to the case. The abdomen was entered carefully after elevating the fascial along the upper abdomen. The peritoneum was entered. Small bowel distention was identified along the proximal small bowel with complete decompression distally. Dense peritoneal adhesions including interloop adhesions were identified along the right lower quadrant of a entanglement involving distal jejunum and ileum. The small bowel was adherent to the abdominal wall. Using a combination of blunt dissection with scissors, the adhesions were carefully lysed over 2.5 hours avoiding any full thickness enterotomies. Additionally, an incisional hernia of least 5 cm below the umbilicus consistent with previous incisional hernia was also reduced involving small bowel. Point of obstruction was confirmed from her adhesive band disease of the right lower quadrant. The small bowel was carefully inspected from proximal to distal where no further adhesions were identified. Internal hernias involving adhesions were divided with scissors. All dense adhesive band disease from prior surgery of the pelvis especially along the right lower quadrant involving the distal jejunum and ileum were completely lysed. A 5 mm superficial serosal tear along the mid ileum was oversewn with 3-0 silk. Immediately upon release of mid jejunum to ileum, gaseous distention of the cecum to transverse colon and sigmoid colon followed consistent with release of the small bowel obstruction. Incarcerated incisional hernia was also reduced below the umbilicus, 5 cm. Final inspection of the abdomen demonstrated adequate hemostasis and no full thickness enterotomies. The abdomen was closed using 2 double-stranded #1 PDS from xiphoid including pubis closing along the epigastrium. Closure of the abdomen was checked along the peritoneum digitally. The abdomen was dry. The skin was reapproximated using stainless skin alpesh. At the umbilicus the skin was reapproximated using 3-0 Vicryl. The skin was cleansed with dilute hydrogen peroxide. Optifoam dressing was applied to the midline incision. An abdominal binder was placed. At the end of the procedure, needle, sponge, and instrument count was verified correct by neurosurgical nurse. The patient had tolerated the procedure well, was taken to the postanesthesia care unit in stable condition. Intraoperative abdominal findings were described and discussed with her family who were overall pleased with her level of care.
[2019-11-12 15:04] LABS: Glucose,Whole Blood 156 mg/dL (75-99)
[2019-11-12] MEDS ORDERED: HYDROmorphone 0.5 MG/0.5 ML SYRINGE IVP ONE (15:30)
[2019-11-12] MEDS: KETOROLAC 30 MG/ML 1 ML VIAL IVP SCH ×2 (16:33→20:43)
--- NOTE | 2019-11-12 17:36 | PN ---
PROGRESS NOTE DATE OF SERVICE: 11/12/2019 CHIEF COMPLAINT: Abdominal pain and leukocytosis. HISTORY OF PRESENT ILLNESS: This lady was taken to the operating room and apparently was identified as having a hernia, which was repaired. Postoperatively, she is awake and alert and doing well. REVIEW OF SYSTEMS: She is having no nausea and the pain is under control. PHYSICAL EXAM: Head ears, eyes, nose, mouth, and throat are normal. Breath sounds are heard on both sides. The cardiac exam is normal sinus rhythm. Midline lower abdominal incision is dry. IMPRESSION: Status post laparotomy and internal herniorrhaphy. PLAN: Follow with Surgery. MMODL / IJN: [id number] /
[2019-11-12 17:37] LABS: Glucose,Whole Blood 165 mg/dL (75-99)
[2019-11-12] MEDS: HYDROmorphone 1 MG/ML 1 ML SYRINGE IVP PRN (18:19)
[2019-11-12] MEDS: FAT EMULSION 20% 250 ML in EMPTY BAG 1 BAG IV SCH (20:02)
[2019-11-12] MEDS: 1: MVI, ADULT NO.4 WITH VIT K 10 ML, TRACE (CONC-1ML/DOSE) 1 ML, POTASSIUM CHLORIDE 30 M IV SCH ×4 (20:02)
[2019-11-12] MEDS: OXcarbazepine 150 MG TAB PO SCH (20:43)
[2019-11-13 00:25] LABS: Glucose,Whole Blood 180 mg/dL (75-99)
[2019-11-13] MEDS: INSULIN ASPART (NovoLOG) 100 UNIT/ML VIAL SQ SCH ×4 (00:26→17:38)
[2019-11-13] MEDS: AMPICILLIN-SULBACTAM 3 GM in SODIUM CHLORIDE 0.9% 100 ML IVPB SCH ×4 (00:26→17:38)
[2019-11-13] MEDS: HYDROmorphone 1 MG/ML 1 ML SYRINGE IVP PRN ×7 (00:29→21:30)
--- NOTE | 2019-11-13 02:18 | PN ---
PROGRESS NOTE DATE OF SERVICE: 11/12/2019 REASON FOR FOLLOWUP: Leukocytosis, abdominal source. INTERVAL HISTORY: The patient is currently afebrile. The patient has been taken to the OR. She was noted to have small bowel obstruction regarding from adhesion from her previous surgery. The patient proceed. There was no evidence of any ischemic bowel or any perforation as per discussion with the surgeon. No vomiting or any diarrhea. PHYSICAL EXAMINATION: Blood pressure 111/71 with a pulse of 108, temperature of 98. She is 96% on 2 L nasal cannula. General description is a middle-aged female lying in bed in no distress. RESPIRATORY SYSTEM: Unlabored breathing, clear to auscultation anteriorly. HEART: S1, S2. Regular rate and rhythm. ABDOMEN: Soft, no tenderness. LABS: Hemoglobin is 13, white count 15.8. BUN of 10, creatinine 0.57. Urine with Klebsiella sensitive pathogen. DIAGNOSTIC IMPRESSION AND PLAN: Patient admitted to the hospital with sepsis was likely abdomen with evidence of small bowel obstruction status post surgery. Currently no evidence of any ischemia or perforation. Patient coverage to continue with Unasyn, that should cover the urinary tract infection as well and monitor clinical course closely. MMODL / IJN: [id number] /
[2019-11-13] MEDS: KETOROLAC 30 MG/ML 1 ML VIAL IVP SCH ×4 (02:45→20:28)
[2019-11-13 05:55] LABS: Glucose,Whole Blood 187 mg/dL (75-99)
[2019-11-13] MEDS: SODIUM CHLORIDE 0.9% 1,000 ML IV SCH ×3 (06:19→17:39)
[2019-11-13 08:07] LABS: ALT 11 U/L (4-34); AST 45 U/L (14-36); African American GFR (CKD) >90 (>60 ml/min/1.73 sqM); Albumin 2.4 g/dL (3.5-5.0); Alkaline Phosphatase 70 U/L (38-126); Anion Gap 2 mmol/L; Blood Urea Nitrogen 10 mg/dL (7-17); Calcium 7.3 mg/dL (8.4-10.2); Carbon Dioxide 27 mmol/L (22-30); Chloride 110 mmol/L (98-107); Glucose 166 mg/dL (74-99); Magnesium 1.9 mg/dL (1.6-2.3); Non-African American GFR(CKD) >90 (>60 ml/min/1.73 sqM); Phosphorus 3.4 mg/dL (2.5-4.5); Potassium 3.5 mmol/L (3.5-5.1); Sodium 139 mmol/L (137-145); Total Bilirubin 0.2 mg/dL (0.2-1.3); Total Protein 4.7 g/dL (6.3-8.2)
[2019-11-13 08:26] LABS: HCT 38.1 % (34.0-46.0); HGB 12.9 gm/dL (11.4-16.0); MCH 31.3 pg (25.0-35.0); MCHC 33.8 g/dL (31.0-37.0); MCV 92.5 fL (80.0-100.0); Mean Platelet Volume 8.7; Platelet Count 269 k/uL (150-450); RBC 4.12 m/uL (3.80-5.40); RDW 13.5 % (11.5-15.5)
[2019-11-13 09:16] LABS: Band Neutrophils % 1 %; Eosinophils # (M) 2.39 k/uL (0-0.7); Lymphocytes # (M) 3.02 k/uL (1.0-4.8); Metamyelocytes # (M) 0.32 k/uL (0); Metamyelocytes % 2 %; Monocytes # (M) 0.32 k/uL (0-1.0); Myelocytes # (M) 0.95 k/uL (0); Myelocytes % 6 %; Neutrophils % (M) 56 %; Nucleated Red Blood Cells 2 /100 WBC (0-0); Total Cells Counted 200; WBC 15.9 k/uL (3.8-10.6)
[2019-11-13 09:17] LABS: Polychromasia Present
[2019-11-13] MEDS: OXcarbazepine 300 MG TAB PO SCH (09:21)
[2019-11-13] MEDS: 1: MVI, ADULT NO.4 WITH VIT K 10 ML, TRACE (CONC-1ML/DOSE) 1 ML, POTASSIUM CHLORIDE 30 M IV SCH ×4 (10:38)
[2019-11-13] MEDS: POTASSIUM CHLORIDE 10 MEQ in WATER FOR INJECTION 1 100ML.BAG IVPB SCH ×2 (10:39→12:41)
[2019-11-13 12:06] LABS: Glucose,Whole Blood 171 mg/dL (75-99)
--- NOTE | 2019-11-13 13:10 | P.PN ---
<Padmini Clifton - Last Filed: 11/13/19 13:06> Subjective Progress Note Date: 11/13/19 CHIEF COMPLAINT: Small bowel obstruction HISTORY OF PRESENT ILLNESS: . Patient is status post extensive lysis of adhesions and reduction of incarcerated umbilical ventral hernia with Dr. Stefany gimenez. Postop day #1. Patient examined this morning at the bedside. Patient states she is passing flatus. Her pain is tolerable at this time. Vital signs are stable. She is mildly tachycardic. She is afebrile. WBC 15.9. PHYSICAL EXAM: VITAL SIGNS: Reviewed GENERAL: Well-developed in no acute distress. HEENT: No sclera icterus. Extraocular movements grossly intact. Moist buccal mucosa. Head is atraumatic, normocephalic. Hears conversational speech. No nasal ashwini inage. NECK: Supple without lymphadenopathy. CHEST: Non-labored respirations and equal bilateral excursions. CARDIOVASCULAR: Regular rate with regular rhythm. Palpable 2+ radial pulses. ABDOMEN: Soft. Nondistended. Appropriate surgical tenderness. Surgical dressing clean dry and intact. MUSCULOSKELETAL: No clubbing or cyanosis. NEUROLOGIC: No focal or lateralizing signs. Cranial nerves II through XII grossly intact. PSYCH: Appropriate affect. Alert and oriented to person, place and time. SKIN: Well perfused. Good skin turgor. ASSESSMENT: 1. Small bowel obstruction PLAN: -Begin clear liquid diet -Pain control -Activity as tolerated -Incentive spirometer -If patient able to tolerable clear liquid diet, she may be discharged home from a surgical standpoint per Dr. Hernandes Nurse practitioner note has been reviewed by physician. Signing provider agrees with the documented findings, assessment, and plan of care. Objective - Vital Signs Vital signs: Vital Signs Temp 98.8 F 11/13/19 12:59 Pulse 103 H 11/13/19 12:59 Resp 18 11/13/19 12:59 BP 123/81 11/13/19 12:59 Pulse Ox 92 L 11/13/19 12:59 Intake & Output 11/12/19 11/13/19 11/13/19 18:59 06:59 18:59 Intake Total 2600 240 Output Total 550 400 220 Balance 2049 -160 - Weight 117 kg Intake: IV 2600 Oral 240 Output: Urine 400 400 220 Uretheral (Ashraf) 220 Estimated Blood Loss 150 Other: Voiding Method Toilet Toilet Toilet - Labs CBC & Chem 7: 11/13/19 06:16 11/13/19 06:16 Labs: Abnormal Lab Results - Last 24 Hours (Table) 11/12/19 11/12/19 11/13/19 Range/Units 15:02 17:36 00:22 WBC (3.8-10.6) k/uL Neutrophils # (Manual) (1.3-7.7) k/uL Eosinophils # (Manual) (0-0.7) k/uL Metamyelocytes # (Man) (0) k/uL Myelocytes # (Manual) (0) k/uL Nucleated RBCs (0-0) /100 WBC Chloride (98-107) mmol/L Glucose (74-99) mg/dL POC Glucose (mg/dL) 156 H 165 H 180 H (75-99) mg/dL Calcium (8.4-10.2) mg/dL AST (14-36) U/L Total Protein (6.3-8.2) g/dL Albumin (3.5-5.0) g/dL 11/13/19 11/13/19 11/13/19 Range/Units 05:52 06:16 06:16 WBC 15.9 H (3.8-10.6) k/uL Neutrophils # (Manual) 9.00 H (1.3-7.7) k/uL Eosinophils # (Manual) 2.39 H (0-0.7) k/uL Metamyelocytes # (Man) 0.32 H (0) k/uL Myelocytes # (Manual) 0.95 H (0) k/uL Nucleated RBCs 2 H (0-0) /100 WBC Chloride 110 H (98-107) mmol/L Glucose 166 H (74-99) mg/dL POC Glucose (mg/dL) 187 H (75-99) mg/dL Calcium 7.3 L (8.4-10.2) mg/dL AST 45 H (14-36) U/L Total Protein 4.7 L (6.3-8.2) g/dL Albumin 2.4 L (3.5-5.0) g/dL 11/13/19 Range/Units 11:53 WBC (3.8-10.6) k/uL Neutrophils # (Manual) (1.3-7.7) k/uL Eosinophils # (Manual) (0-0.7) k/uL Metamyelocytes # (Man) (0) k/uL Myelocytes # (Manual) (0) k/uL Nucleated RBCs (0-0) /100 WBC Chloride (98-107) mmol/L Glucose (74-99) mg/dL POC Glucose (mg/dL) 171 H (75-99) mg/dL Calcium (8.4-10.2) mg/dL AST (14-36) U/L Total Protein (6.3-8.2) g/dL Albumin (3.5-5.0) g/dL Microbiology - Last 24 Hours (Table) 11/10/19 17:07 Urine Culture - Final Urine,Voided Klebsiella pneumoniae 11/10/19 17:07 Blood Culture - Preliminary Blood No Growth after 48 hours <Yarelis Hernandes - Last Filed: 11/24/19 01:19> Subjective Patient seen and evaluated with nurse practitioner. Agree with above. Patient is passing moderate flatus. She reports resolution of her right lower quadrant abdominal pain. Recommend liquid diet for which patient may be discharged home with follow-up in the office in 1 week. Objective - Vital Signs Vital signs: Vital Signs Temp 98.4 F 11/14/19 12:11 Pulse 97 11/14/19 12:11 Resp 17 11/14/19 12:11 BP 144/85 11/14/19 12:11 Pulse Ox 97 11/14/19 12:11 - Labs CBC & Chem 7: 11/13/19 06:16 11/14/19 12:47 Assessment and Plan (1) Sepsis Status: Acute Code(s): A41.9 - SEPSIS, UNSPECIFIED ORGANISM SNOMED Code(s): 73717643 (2) Ileus Status: Acute Code(s): K56.7 - ILEUS, UNSPECIFIED SNOMED Code(s): 141592269 (3) Abdominal pain Status: Acute Code(s): R10.9 - UNSPECIFIED ABDOMINAL PAIN SNOMED Code(s): 85991582 (4) Dehydration Status: Acute Code(s): E86.0 - DEHYDRATION SNOMED Code(s): 21620574 (5) Leukocytosis Status: Acute Code(s): D72.829 - ELEVATED WHITE BLOOD CELL COUNT, UNSPECIFIED SNOMED Code(s): 159815358 (6) Urinary tract infection Status: Acute Code(s): N39.0 - URINARY TRACT INFECTION, SITE NOT SPECIFIED SNOMED Code(s): 15659102 (7) Hypokalemia Status: Acute Code(s): E87.6 - HYPOKALEMIA SNOMED Code(s): 80027599 (8) Hypomagnesemia Status: Acute Code(s): E83.42 - HYPOMAGNESEMIA SNOMED Code(s): 898002595 (9) Hypovolemic shock Status: Acute Code(s): R57.1 - HYPOVOLEMIC SHOCK SNOMED Code(s): 07651571
[2019-11-13 17:28] LABS: Glucose,Whole Blood 194 mg/dL (75-99)
--- NOTE | 2019-11-13 19:08 | PN ---
PROGRESS NOTE DATE OF SERVICE: 11/13/2019 CHIEF COMPLAINT: Status post laparotomy for bowel obstruction. HISTORY OF PRESENT ILLNESS: This lady is doing fairly well. She has passed small amount of gas. She is not vomiting. PHYSICAL EXAMINATION: Vital signs are normal. Chest is clear. Cardiac exam is normal. Abdomen is soft, nontender. IMPRESSION: Status post laparotomy with lysis of adhesions and repair of ventral hernia. PLAN: Continue to follow with Surgery until she is able to be discharged. MMODL / IJN: [id number] /
[2019-11-13] MEDS: FAT EMULSION 20% 250 ML in EMPTY BAG 1 BAG IV SCH (19:15)
[2019-11-13 20:20] LABS: Glucose,Whole Blood 201 mg/dL (75-99)
[2019-11-13] MEDS: OXcarbazepine 150 MG TAB PO SCH (20:24)
[2019-11-13] MEDS ORDERED: INSULIN DETEMIR (LEVEMIR) 100 UNIT/ML SYR SQ SCH (21:00)
[2019-11-14 00:11] LABS: Glucose,Whole Blood 181 mg/dL (75-99)
[2019-11-14] MEDS: AMPICILLIN-SULBACTAM 3 GM in SODIUM CHLORIDE 0.9% 100 ML IVPB SCH ×3 (00:35→13:12)
[2019-11-14] MEDS: INSULIN ASPART (NovoLOG) 100 UNIT/ML VIAL SQ SCH ×3 (00:35→13:15)
--- NOTE | 2019-11-14 00:35 | PN ---
PROGRESS NOTE DATE OF SERVICE: 11/13/2019 REASON FOR FOLLOWUP: Leukocytosis in this patient who did have small bowel secondary internal adhesions. INTERVAL HISTORY: The patient is currently afebrile. The patient is breathing comfortably. The patient's abdominal pain has improved. No chest pain, shortness of breath or cough. No nausea, vomiting or diarrhea. PHYSICAL EXAMINATION: Blood pressure 126/79 with a pulse of 95, temperature 98.9. She is 97% on room air. General description is a middle-aged female up in the bed in no distress. RESPIRATORY SYSTEM: Unlabored breathing, clear to auscultation anteriorly. HEART: S1, S2. Regular rate and rhythm. ABDOMEN: Soft, mildly distended. No guarding or rigidity. LABS: Hemoglobin is 12.9, white count of 15.9, BUN of 10, creatinine 0.61. Urine with Klebsiella. DIAGNOSTIC IMPRESSION AND PLAN: Patient admitted to the hospital with abdominal pain and vomiting in this patient diagnosed with small-bowel obstruction secondary to internal from the adhesions, status post laparotomy and adhesions, but no evidence of any perforation or ischemic bowel. The patient is covered with Unasyn to continue, that should cover the urinary tract infection as well. Finish therapy with oral antibiotic on discharge. Continue with supportive care. MMODL / IJN: [id number] /
[2019-11-14] MEDS: SODIUM CHLORIDE 0.9% 1,000 ML IV SCH ×2 (00:36→12:19)
[2019-11-14] MEDS: 1: MVI, ADULT NO.4 WITH VIT K 10 ML, TRACE (CONC-1ML/DOSE) 1 ML, POTASSIUM CHLORIDE 30 M IV SCH ×4 (02:48)
[2019-11-14] MEDS: HYDROmorphone 1 MG/ML 1 ML SYRINGE IVP PRN (02:49)
[2019-11-14] MEDS: KETOROLAC 30 MG/ML 1 ML VIAL IVP SCH ×2 (02:49→07:55)
[2019-11-14 05:56] LABS: Glucose,Whole Blood 188 mg/dL (75-99)
[2019-11-14 07:20] LABS: Glucose,Whole Blood 202 mg/dL (75-99)
[2019-11-14 07:23] LABS: African American GFR (CKD) >90 (>60 ml/min/1.73 sqM); Anion Gap 3 mmol/L; Blood Urea Nitrogen 10 mg/dL (7-17); Calcium 7.5 mg/dL (8.4-10.2); Carbon Dioxide 26 mmol/L (22-30); Chloride 109 mmol/L (98-107); Glucose 177 mg/dL (74-99); Magnesium 1.5 mg/dL (1.6-2.3); Non-African American GFR(CKD) >90 (>60 ml/min/1.73 sqM); Phosphorus 3.7 mg/dL (2.5-4.5); Potassium 3.7 mmol/L (3.5-5.1); Sodium 138 mmol/L (137-145)
[2019-11-14] MEDS: POTASSIUM CHLORIDE 10 MEQ in WATER FOR INJECTION 1 100ML.BAG IVPB SCH ×2 (07:50→09:16)
[2019-11-14] MEDS: OXcarbazepine 300 MG TAB PO SCH (07:57)
--- NOTE | 2019-11-14 08:47 | CDI ---
Documentation Clarification Form Date: 11/14/2019 07:59:50 AM From: Carey Robertson RN, CCDS Admit Date: 11/10/2019 07:06:00 PM Patient Name: Susan Bai Visit Number: [id number] Discharge Date: ATTENTION: The Clinical Documentation Specialists (CDI) and [facility] Coding Staff appreciate your assistance in clarifying documentation. Please respond to the clarification below the line at the bottom and electronically sign. The CDI & [facility] Coding staff will review the response and follow-up if needed. Please note: Queries are made part of the Legal Health Record. If you have any questions, please contact the author of this message via ITS. Dr. Ramin Lopes The patient presented with right lower quadrant abdominal pain for past several days, elevated temperature, elevated WBC, UTI, culture positive for Klebsiella pneumonia. Please provide clinical significance of the findings. 11/10 Surgical consult (Dr. Hernandes) Urinary tract infection with sepsis. Abnormal computed tomography scan with dilated stomach. 11/12 ID Consult: (Dr. Osei) Patient admitted to the hospital with sepsis was likely abdomen with evidence of small bowel obstruction status post surgery. No evidence of any ischemia or perforation. Continue with Unsayn that should cover the urinary tract infection History/Risk Factors: Diabetes Mellitus, Hypertension Clinical Indicators: 49-year-old female present to ED on 11/09 with complaints of abdominal pain and tenderness with nausea and vomiting for several days. ED evaluation: She has evidence of a urinary tract infection. CT abdomen and pelvis shows a mildly dilated fluid-filled small bowel loops in the lower abdomen and involving more proximal jejunum without transition point seen that could relate to partial mechanical obstruction. 11/09 WBC 19.6 HGB 19.2, HCT 57.3, Sodium 136 11/09 Lactic acid: 2.0 11/09 Urine: Urine Nitrite Positive, Ur Leukocyte Esterase small Bacteria few, WBC 19 11/09 Urine culture: Klebsiella pneumoniae 11/09 Blood cultures: Pending, Preliminary no growth after 72 hours 11/09 Cononavirus Not detected 11/09 Vitals signs on admission: 124/78 122 18 98.2 96 % RA Treatment: .9 NS 1000 ml bolus x3, Parenteral vitamin @ 50 mls/hr Unasyn Iv q 6 hrs Cefazolin 2,000 mg IV x1 (11/11) Levaguin 750 mg iv x1 (11/09) Monitor CBC, In your professional opinion, please clarify if these findings signify one of the following conditions, whether the condition is POA, and cause, if known: Condition Sepsis secondary to UTI, culture showing Klebsiella pneumniae present on admission Sepsis ruled out Other, please specify Unable to determine Present on Admission Yes No Identify the (suspected) organism Link or clarify if there is associated (due to/with): SIRS Criteria (2 or more of the following may indicate SIRS): -Temperature < 96.8F (36C) or > 101.0F (38.3C) -Heart Rate > 90 bpm -Respiratory Rate > 20 breaths/min or PaCO2 < 32 mmHg -White Blood Cell Count > 12,000 or < 4,000 cells/mm3 or > 10% bands -Lactate >2.0 mmol/L (>4.0 is equivalent to septic shock) (Last Revision: August 2017) MTDD
[2019-11-14] MEDS: MAGNESIUM SULFATE-D5W PMX 1 GM in DEXTROSE/WATER 1 100ML.BAG IVPB SCH ×2 (10:43→12:13)
--- NOTE | 2019-11-14 11:39 | P.PN ---
<Padmini Clifton - Last Filed: 11/14/19 11:33> Subjective Progress Note Date: 11/14/19 CHIEF COMPLAINT: Small bowel obstruction HISTORY OF PRESENT ILLNESS: . Patient is status post extensive lysis of adhesions and reduction of incarcerated umbilical ventral hernia with Dr. Stefany gimenez. Postop day #2. Patient examined this morning at the bedside. Patient states she is passing flatus. Her pain is tolerable at this time. Vital signs are stable. She is afebrile. PHYSICAL EXAM: VITAL SIGNS: Reviewed GENERAL: Well-developed in no acute distress. HEENT: No sclera icterus. Extraocular movements grossly intact. Moist buccal mucosa. Head is atraumatic, normocephalic. Hears conversational speech. No nasal drainage. NECK: Supple without lymphadenopathy. CHEST: Non-labored respirations and equal bilateral excursions. CARDIOVASCULAR: Regular rate with regular rhythm. Palpable 2+ radial pulses. ABDOMEN: Soft. Nondistended. Appropriate surgical tenderness. Surgical dressing clean dry and intact. MUSCULOSKELETAL: No clubbing or cyanosis. NEUROLOGIC: No focal or lateralizing signs. Cranial nerves II through XII grossly intact. PSYCH: Appropriate affect. Alert and oriented to person, place and time. SKIN: Well perfused. Good skin turgor. ASSESSMENT: 1. Small bowel obstruction PLAN: -Advance diet -Pain control -Activity as tolerated -Incentive spirometer -Discontinue TPN -She may be discharged home from a surgical standpoint per Dr. Hernandes. Will defer to internal medicine Nurse practitioner note has been reviewed by physician. Signing provider agrees with the documented findings, assessment, and plan of care. Objective - Vital Signs Vital signs: Vital Signs Temp 98.1 F 11/14/19 06:17 Pulse 93 11/14/19 06:17 Resp 18 11/14/19 06:17 BP 137/81 11/14/19 06:17 Pulse Ox 97 11/14/19 06:17 Intake & Output 11/13/19 11/14/19 11/14/19 18:59 06:59 18:59 Intake Total 2496 3620 1015 Output Total 220 Balance 2276 3620 1015 Weight 119 kg Intake: Intake, IV Titration 2496 2660 1015 Amount Ampicillin-Sulbactam 3 gm 100 200 In Sodium Chloride 0.9% 100 ml @ 200 mls/hr IVPB Q6HR [facility] Rx#:[id number] Fat Emulsion 20% 250 ml 310 In Empty Bag 1 bag @ 20. 833 mls/hr IV DAILY@1930 [facility] Rx#:[id number] Mvi, Adult No.4 with Vit 1026 K 10 ml Trace (Conc-1Ml/ Dose) 1 ml Potassium Chloride 30 meq In Amino Acid 4.25%-D10w+Lytes*E* 1,000 ml @ 65 mls/hr IV . BY DURATION [facility] Rx#: [id number] Potassium Chloride 10 meq 200 In Water For Injection 1 100ml.bag @ 100 mls/hr IVPB Q1HR [facility] Rx#: [id number] Potassium Chloride 30 meq 838 596 9475 In Amino Acid 4.25%-D10w +Lytes*E* 1,000 ml @ 65 mls/hr IV .BY DURATION [facility] Rx#:[id number] Sodium Chloride 0.9% 1, 1040 1370 000 ml @ 130 mls/hr IV . Q7H42M [facility] Rx#:[id number] Oral 960 Output: Urine 220 Uretheral (Ashraf) 220 Other: Voiding Method Toilet Toilet # Voids 1 - Labs CBC & Chem 7: 11/13/19 06:16 11/14/19 06:16 Labs: Abnormal Lab Results - Last 24 Hours (Table) 11/13/19 11/13/19 11/13/19 Range/Units 11:53 17:23 20:08 Chloride (98-107) mmol/L Creatinine (0.52-1.04) mg/dL Glucose (74-99) mg/dL POC Glucose (mg/dL) 171 H 194 H 201 H (75-99) mg/dL Calcium (8.4-10.2) mg/dL Magnesium (1.6-2.3) mg/dL 11/14/19 11/14/19 11/14/19 Range/Units 00:09 05:52 06:16 Chloride 109 H (98-107) mmol/L Creatinine 0.51 L (0.52-1.04) mg/dL Glucose 177 H (74-99) mg/dL POC Glucose (mg/dL) 181 H 188 H (75-99) mg/dL Calcium 7.5 L (8.4-10.2) mg/dL Magnesium 1.5 L (1.6-2.3) mg/dL 11/14/19 Range/Units 07:17 Chloride (98-107) mmol/L Creatinine (0.52-1.04) mg/dL Glucose (74-99) mg/dL POC Glucose (mg/dL) 202 H (75-99) mg/dL Calcium (8.4-10.2) mg/dL Magnesium (1.6-2.3) mg/dL Microbiology - Last 24 Hours (Table) 11/10/19 17:07 Blood Culture - Preliminary Blood No Growth after 72 hours <Yarelis Hernandes N - Last Filed: 11/24/19 01:20> Subjective Patient seen and evaluated nurse practitioner. Agree with above. Additionally, agree with discontinuing parenteral nutrition. She is tolerating liquid diet. Continue with surgical dressing until removal in the office. May shower. Wear abdominal binder at all times except for showering. Objective - Vital Signs Vital signs: Vital Signs Temp 98.4 F 11/14/19 12:11 Pulse 97 11/14/19 12:11 Resp 17 11/14/19 12:11 BP 144/85 11/14/19 12:11 Pulse Ox 97 11/14/19 12:11 - Labs CBC & Chem 7: 11/13/19 06:16 11/14/19 12:47 Assessment and Plan (1) Sepsis Status: Acute Code(s): A41.9 - SEPSIS, UNSPECIFIED ORGANISM SNOMED Code(s): 12268194 (2) Ileus Status: Acute Code(s): K56.7 - ILEUS, UNSPECIFIED SNOMED Code(s): 711228054 (3) Abdominal pain Status: Acute Code(s): R10.9 - UNSPECIFIED ABDOMINAL PAIN SNOMED Code(s): 87138674 (4) Dehydration Status: Acute Code(s): E86.0 - DEHYDRATION SNOMED Code(s): 61842282 (5) Leukocytosis Status: Acute Code(s): D72.829 - ELEVATED WHITE BLOOD CELL COUNT, UNSPECIFIED SNOMED Code(s): 756808813 (6) Urinary tract infection Status: Acute Code(s): N39.0 - URINARY TRACT INFECTION, SITE NOT SPECIFIED SNOMED Code(s): 52826916 (7) Hypokalemia Status: Acute Code(s): E87.6 - HYPOKALEMIA SNOMED Code(s): 93830825 (8) Hypomagnesemia Status: Acute Code(s): E83.42 - HYPOMAGNESEMIA SNOMED Code(s): 174338479 (9) Hypovolemic shock Status: Acute Code(s): R57.1 - HYPOVOLEMIC SHOCK SNOMED Code(s): 56064770
[2019-11-14 11:57] LABS: Glucose,Whole Blood 207 mg/dL (75-99)
[2019-11-14 12:12] VITALS: BP 144/85; PULSE 97; RESP 17; TEMP 98.4
--- NOTE | 2019-11-14 15:22 | PN ---
PROGRESS NOTE DATE OF SERVICE: 11/14/2019 REASON FOR FOLLOWUP: Leukocytosis and discharge antibiotic recommendations. INTERVAL HISTORY: The patient was seen on rounds this morning. The patient has been afebrile. She was ready, sitting up in the chair; apparently has been discharged by the admitting physician. Surgery has okayed the discharge per their RN, pending further discharge antibiotic recommendations. The patient currently denies having any chest pain, shortness of breath or cough. No nausea, vomiting. Abdominal pain is currently controlled. No diarrhea. PHYSICAL EXAMINATION: Blood pressure is 144/85 with a pulse of 97, temperature of 98.4. She is 97% on room air. General description is a middle-aged female up in the chair in no distress. RESPIRATORY SYSTEM: Unlabored breathing. Clear to auscultation anteriorly. HEART: S1, S2. Regular rate and rhythm. ABDOMEN: Soft. No tenderness. No guarding or rigidity. LABS: No new labs have been obtained today. Blood culture has been negative. DIAGNOSTIC IMPRESSION AND PLAN: Patient with leukocytosis. Source is likely abdominal in this patient noticed to have a small bowel obstruction secondary to adhesions, status post drainage of the same, with no evidence of any perforation or ischemia. The patient overall improved on Unasyn. Will give a short course of oral Augmentin on discharge. Continue with supportive care. MMODL / IJN: [id number] /
[2019-11-14] MEDS ORDERED: 1: MVI, ADULT NO.4 WITH VIT K 10 ML, TRACE (CONC-1ML/DOSE) 1 ML, POTASSIUM CHLORIDE 40 M IV SCH ×5 (18:00)
--- NOTE | 2019-11-14 18:22 | DS ---
DISCHARGE SUMMARY CHIEF COMPLAINT: Abdominal pain and leukocytosis. HISTORY OF PRESENT ILLNESS AND PHYSICAL EXAMINATION: Details of this lady's history and physical can be found in the initial workup. LABORATORY STUDIES: While she was in the hospital she had laboratory studies, details of which can be found in the laboratory section of her chart. COURSE IN THE HOSPITAL: After admission she was placed on bedrest and started on intravenous fluids and kept n.p.o. She was seen by Surgery. Eventually she was taken for a laparotomy, where she was found to have small bowel obstruction secondary to lysis of adhesions. She also had a ventral hernia which was repaired. Postoperatively she did well. It was felt she could be discharged on the November 13, and she will follow up in the office in several days. FINAL DIAGNOSES: 1. Small-bowel obstruction secondary to intraabdominal adhesions. 2. Dehydration. 3. Leukocytosis. 4. Diabetes mellitus. OPERATIONS: Laparotomy and lysis of adhesions. CONSULTATION: Surgery. She is improved. MMSTEPHANIEL / IJN: [id number] /
--- NOTE | 2019-11-14 18:27 | MISC ---
MISCELLANOUS REPORT QUERY: Sepsis ruled out. MMODL / IJN: [id number] /
--- NOTE | 2019-11-27 23:42 | CDI ---
Documentation Clarification Form Date: 11/28/2019 From: Syed Moore Phone: If you have a question about this query, please contact Joselin Edgar, Curator Of Education at [phone] between 8am and 5pm. Admit Date: 11/10/2019 Discharge Date: 11/14/2019 Patient Name: Susan Bai Visit Number: [id number] ATTENTION: The Clinical Documentation Specialists (CDI) and [facility] Coding Staff appreciate your assistance in clarifying documentation. Please respond to the clarification below the line at the bottom and electronically sign. The CDI & [facility] Coding staff will review the response and follow-up if needed. Please note: Queries are made part of the Legal Health Record. If you have any questions, please contact the author of this message via ITS. Dear Yarelis Barrera, The patient presented with the Small bowel obstruction with peritonitis underwent release of small intestine. History/Risk Factors: Morbid obesity due to excess calories, BMI 48.0 , Diabetes type 2, Hyperlipidemia. Treatment:Open exploratory laparotomy with extensive lysis adhesions over 2.5 hours Dense adhesive band disease from prior surgery of the pelvis especially along the right lower quadrant involving the ileum.Over 2.5 hours of extensive lysis of adhesions with repair of serosal tear ileum 5 mm oversewn with 3-0 silk In OP Report mentioned as " Over 2.5 hours of extensive lysis of adhesions with repair of serosal tear ileum 5 mm oversewn with 3-0 silk". In your professional opinion, can you please clarify Serosal Tear Ileus repair is a Intra-Operative Complication? YES NO Other, please specify Unable to determine Above is not a complication of care, expected in surgery with severity of adhesions. VERITO 11/28/19 @0717 JANINE
== END 2019-11-14 14:34 | disposition home health service (06) | DRG 335 ==
LOC: EC 16:19 → 5NMEDONC 19:06
PROVIDERS: ADMIT Family Medicine; ATTEND Family Medicine
DX: K56.50 Intestinal adhesions [bands], unspecified as to partial versus complete obstruction (principal); R57.1 Hypovolemic shock; Z68.42 Body mass index [BMI] 45.0-49.9, adult; K43.6 Other and unspecified ventral hernia with obstruction, without gangrene; N39.0 Urinary tract infection, site not specified; K42.0 Umbilical hernia with obstruction, without gangrene; K56.7 Ileus, unspecified; F25.9 Schizoaffective disorder, unspecified; F41.0 Panic disorder [episodic paroxysmal anxiety]; I10 Essential (primary) hypertension; A08.4 Viral intestinal infection, unspecified; E66.01 Morbid (severe) obesity due to excess calories; E78.5 Hyperlipidemia, unspecified; E83.42 Hypomagnesemia; E87.6 Hypokalemia; E11.9 Type 2 diabetes mellitus without complications; Z79.899 Other long term (current) drug therapy; Z79.890 Hormone replacement therapy; Z20.828 Contact with and (suspected) exposure to other viral communicable diseases; Z79.82 Long term (current) use of aspirin; Z79.4 Long term (current) use of insulin; Z90.710 Acquired absence of both cervix and uterus; Z88.1 Allergy status to other antibiotic agents; Z90.49 Acquired absence of other specified parts of digestive tract; Z82.49 Family history of ischemic heart disease and other diseases of the circulatory system
CPT/HCPCS: 36415; 71046; 74021; 74177; 80048; 80053; 81001; 82150; 82330; 83036; 83605; 83690; 83735; 84100; 84132; 84478; 85025; 86850; 86900; 86901; 87040; 87077; 87086; 87186; 96361; 96365; 96375; 96376; 99285

== ENCOUNTER 2020-02-22 14:33 | Observation (INO) | payer OTHER ==
[2020-02-22] MEDS ORDERED: MORPHINE SULFATE 4 MG/ML SYRINGE IV STA (14:59)
[2020-02-22] MEDS ORDERED: ONDANSETRON 4 MG/2 ML VIAL IVP STA (14:59)
[2020-02-22] MEDS ORDERED: SODIUM CHLORIDE 0.9% 1,000 ML IV STA (14:59)
--- NOTE | 2020-02-22 15:05 | ED ---
General Adult HPI - General Chief complaint: Abdominal Pain Stated complaint: Abd Pain Time Seen by Provider: 02/22/20 14:42 Source: patient, RN notes reviewed Mode of arrival: ambulatory Limitations: no limitations - History of Present Illness Initial comments: 49-year-old female with a past medical history of diabetes mellitus, UTI, hyperlipidemia, hypertension presents to the emergency room for abdominal pain. 3 months ago patient had hernia repair by Dr. Geronimo. States that has been healing well and she has not had complications. However about a week ago she started to have abdominal pain and nausea. She was seen by her primary care doc tor in a CAT scan was ordered. Patient states this was done at a different facility. Patient reports she had a "ball of fluid" behind her incision. Patient was instructed to come to the emergency room. Patient denies fevers or chills. Denies diarrhea. Denies dysuria.Patient has no other complaints at this time including shortness of breath, chest pain, headache, or visual changes. - Related Data Home Medications Medication Instructions Recorded Confirmed lisinopriL [Zestril] 2.5 mg PO DAILY 10/12/18 11/10/19 Omeprazole [PriLOSEC] 20 mg PO DAILY 01/12/19 11/10/19 Aspirin [Adult Low Dose Aspirin EC] 81 mg PO DAILY 11/10/19 11/10/19 Atorvastatin [Lipitor] 80 mg PO DAILY 11/10/19 11/10/19 DULoxetine HCL [Cymbalta] 60 mg PO DAILY 11/10/19 11/10/19 Fenofibrate 160 mg PO DAILY 11/10/19 11/10/19 Insulin Glargine,Hum.rec.anlog 50 units SQ BID 11/10/19 11/11/19 [Basaglar Kwikpen U-100] Levothyroxine Sodium [Synthroid] 150 mcg PO DAILY 11/10/19 11/10/19 OXcarbazepine [Trileptal] 150 mg PO HS 11/10/19 11/10/19 OXcarbazepine [Trileptal] 300 mg PO DAILY 11/10/19 11/10/19 Ondansetron [Zofran] 4 mg PO Q6H PRN 11/10/19 11/10/19 PARoxetine HCL [Paxil] 40 mg PO DAILY 11/10/19 11/10/19 metFORMIN HCL [Glucophage] 1,000 mg PO BID 11/10/19 11/10/19 oxyCODONE HCL/ACETAMINOPHEN 1 tab PO BID PRN 11/10/19 11/10/19 [Percocet 7.5-325 mg] Ibuprofen [Motrin] 800 mg PO Q8H 11/11/19 11/11/19 Semaglutide [Ozempic] 2 mg SQ WEEKLY 11/11/19 11/11/19 risperiDONE 2 mg PO QAM 11/11/19 11/11/19 Previous Rx's Medication Instructions Recorded Amoxic-Pot Clav 875-125Mg 1 tab PO Q12HR 3 Days #14 tab 11/14/19 [Augmentin 875-125] Allergies Allergy/AdvReac Type Severity Reaction Status Date / Time cephalexin [From Keflex] Allergy Rash/Hives Verified 02/22/20 14:40 propoxyphene Allergy Rash/Hives Verified 02/22/20 14:40 [From Darvocet-N] Review of Systems ROS Statement: Those systems with pertinent positive or pertinent negative responses have been documented in the HPI. ROS Other: All systems not noted in ROS Statement are negative. Past Medical History Past Medical History: Diabetes Mellitus, Hyperlipidemia, Hypertension Additional Past Medical History / Comment(s): mutiple uti frequent, issues constipation vs diarrhea History of Any Multi-Drug Resistant Organisms: None Reported Past Surgical History: Section, Cholecystectomy, Hernia Repair, Hyst erectomy, Orthopedic Surgery Additional Past Surgical History / Comment(s): bilat knees,thymus gland Past Anesthesia/Blood Transfusion Reactions: No Reported Reaction Past Psychological History: Anxiety, Depression, Panic Disorder, Schizoaffective Disorder Smoking Status: Never smoker Past Alcohol Use History: None Reported Past Drug Use History: None Reported - Past Family History Mother Family Medical History: Cancer Additional Family Medical History / Comment(s): lung Father Family Medical History: Myocardial Infarction ([place]) General Exam Limitations: no limitations General appearance: alert, in no apparent distress Head exam: Present: atraumatic, normocephalic, normal inspection Eye exam: Present: normal appearance, PERRL, EOMI. Absent: scleral icterus, conjunctival injection, periorbital swelling ENT exam: Present: normal exam, mucous membranes moist Neck exam: Present: normal inspection, full ROM. Absent: tenderness, meningismus, lymphadenopathy Respiratory exam: Present: normal lung sounds bilaterally. Absent: respiratory distress, wheezes, rales, rhonchi, stridor Cardiovascular Exam: Present: regular rate, normal rhythm, normal heart sounds. Absent: bradycardia, tachycardia, irregular rhythm GI/Abdominal exam: Present: soft, tenderness (Tenderness noted inferior to the umbilicus. Well-appearing surgical incision.), normal bowel sounds. Absent: distended, guarding, rebound, rigid Course Vital Signs 02/22/20 02/22/20 02/22/20 14:38 15:19 15:30 Temperature 98.4 F Pulse Rate 99 90 88 Respiratory 18 16 16 Rate Blood Pressure 132/83 113/64 O2 Sat by Pulse 99 98 98 Oximetry 02/22/20 02/22/20 16:00 16:51 Temperature Pulse Rate 80 80 Respiratory 16 16 Rate Blood Pressure 109/65 110/62 O2 Sat by Pulse 98 98 Oximetry Medical Decision Making - Medical Decision Making Vitals are stable. Physical exam does reveal tenderness inferior to the umbilicus. CBC does show mild acidosis of 10.8. CMP shows hyperglycemia, patient does have a history of diabetes. Urinalysis unremarkable aside from glucose of the urine. CT abdomen and pelvis with oral and IV contrast was obtained from [facility]. It appears as though patient has anasarca as well as fluid around or recurrent or persistent hernia site which could reflect infection. Case was discussed with Dr. Geronimo by Dr. Hunter. Patient will be started on antibiotics. She will be admitted to medicine. - Lab Data Result diagrams: 02/22/20 15:10 02/22/20 15:10 Lab Results 02/22/20 02/22/20 02/22/20 Range/Units 15:10 15:10 15:10 WBC 10.8 H (3.8-10.6) k/uL RBC 4.44 (3.80-5.40) m/uL Hgb 13.4 (11.4-16.0) gm/dL Hct 40.4 (34.0-46.0) % MCV 91.1 (80.0-100.0) fL MCH 30.2 (25.0-35.0) pg MCHC 33.1 (31.0-37.0) g/dL RDW 13.4 (11.5-15.5) % Plt Count 316 (150-450) k/uL Neutrophils % 57 % Lymphocytes % 30 % Monocytes % 5 % Eosinophils % 7 % Basophils % 1 % Neutrophils # 6.2 (1.3-7.7) k/uL Lymphocytes # 3.3 (1.0-4.8) k/uL Monocytes # 0.5 (0-1.0) k/uL Eosinophils # 0.7 (0-0.7) k/uL Basophils # 0.1 (0-0.2) k/uL Sodium 139 (137-145) mmol/L Potassium 3.9 (3.5-5.1) mmol/L Chloride 103 (98-107) mmol/L Carbon Dioxide 27 (22-30) mmol/L Anion Gap 9 mmol/L BUN 14 (7-17) mg/dL Creatinine 0.64 (0.52-1.04) mg/dL Est GFR (CKD-EPI)AfAm >90 (>60 ml/min/1.73 sqM) Est GFR (CKD-EPI)NonAf >90 (>60 ml/min/1.73 sqM) Glucose 241 H (74-99) mg/dL Plasma Lactic Acid Shayan (0.7-2.0) mmol/L Calcium 9.3 (8.4-10.2) mg/dL Total Bilirubin 0.4 (0.2-1.3) mg/dL AST 26 (14-36) U/L ALT 15 (4-34) U/L Alkaline Phosphatase 100 (38-126) U/L Total Protein 6.5 (6.3-8.2) g/dL Albumin 3.8 (3.5-5.0) g/dL Amylase 31 (30-110) U/L Lipase 198 (23-300) U/L Urine Color Light Yellow Urine Appearance Clear (Clear) Urine pH 6.0 (5.0-8.0) Ur Specific [place] 1.040 H (1.001-1.035) Urine Protein Negative (Negative) Urine Glucose (UA) 4+ H (Negative) Urine Ketones Trace H (Negative) Urine Blood Negative (Negative) Urine Nitrite Negative (Negative) Urine Bilirubin Negative (Negative) Urine Urobilinogen <2.0 (<2.0) mg/dL Ur Leukocyte Esterase Negative (Negative) 02/22/20 Range/Units 15:10 WBC (3.8-10.6) k/uL RBC (3.80-5.40) m/uL Hgb (11.4-16.0) gm/dL Hct (34.0-46.0) % MCV (80.0-100.0) fL MCH (25.0-35.0) pg MCHC (31.0-37.0) g/dL RDW (11.5-15.5) % Plt Count (150-450) k/uL Neutrophils % % Lymphocytes % % Monocytes % % Eosinophils % % Basophils % % Neutrophils # (1.3-7.7) k/uL Lymphocytes # (1.0-4.8) k/uL Monocytes # (0-1.0) k/uL Eosinophils # (0-0.7) k/uL Basophils # (0-0.2) k/uL Sodium (137-145) mmol/L Potassium (3.5-5.1) mmol/L Chloride (98-107) mmol/L Carbon Dioxide (22-30) mmol/L Anion Gap mmol/L BUN (7-17) mg/dL Creatinine (0.52-1.04) mg/dL Est GFR (CKD-EPI)AfAm (>60 ml/min/1.73 sqM) Est GFR (CKD-EPI)NonAf (>60 ml/min/1.73 sqM) Glucose (74-99) mg/dL Plasma Lactic Acid [place]ayan 1.9 (0.7-2.0) mmol/L Calcium (8.4-10.2) mg/dL Total Bilirubin (0.2-1.3) mg/dL AST (14-36) U/L ALT (4-34) U/L Alkaline Phosphatase (38-126) U/L Total Protein (6.3-8.2) g/dL Albumin (3.5-5.0) g/dL Amylase (30-110) U/L Lipase (23-300) U/L Urine Color Urine Appearance (Clear) Urine pH (5.0-8.0) Ur Specific [place] (1.001-1.035) Urine Protein (Negative) Urine Glucose (UA) (Negative) Urine Ketones (Negative) Urine Blood (Negative) Urine Nitrite (Negative) Urine Bilirubin (Negative) Urine Urobilinogen (<2.0) mg/dL Ur Leukocyte Esterase (Negative) Disposition Clinical Impression: Abdominal pain, Hernia Disposition: ADMITTED IP TO THIS HOSP Condition: Fair Is patient prescribed a controlled substance at d/c from ED?: No Referrals: Ramin Lopes MD [Primary Care Provider] - 1-2 days Time of Disposition: 16:54
[2020-02-22 15:20] LABS: Appearance,Urine Clear (Clear); Bilirubin,Urine Negative (Negative); Color,Urine Light Yellow; Glucose,Urine (UA) 4+ (Negative); Ketones,Urine Trace (Negative); Protein,Urine Negative (Negative)
[2020-02-22 15:21] LABS: Blood,Urine Negative (Negative); Leukocyte Esterase,Urine Negative (Negative); Nitrite,Urine Negative (Negative); Urobilinogen,Urine <2.0 mg/dL (<2.0)
[2020-02-22 15:32] LABS: ALT 15 U/L (4-34); AST 26 U/L (14-36); African American GFR (CKD) >90 (>60 ml/min/1.73 sqM); Albumin 3.8 g/dL (3.5-5.0); Alkaline Phosphatase 100 U/L (38-126); Amylase 31 U/L (30-110); Anion Gap 9 mmol/L; Blood Urea Nitrogen 14 mg/dL (7-17); Calcium 9.3 mg/dL (8.4-10.2); Carbon Dioxide 27 mmol/L (22-30); Chloride 103 mmol/L (98-107); Glucose 241 mg/dL (74-99); Lipase 198 U/L (23-300); Non-African American GFR(CKD) >90 (>60 ml/min/1.73 sqM); Potassium 3.9 mmol/L (3.5-5.1); Sodium 139 mmol/L (137-145); Total Bilirubin 0.4 mg/dL (0.2-1.3); Total Protein 6.5 g/dL (6.3-8.2)
[2020-02-22 15:34] LABS: Basophils # (A) 0.1 k/uL (0-0.2); Basophils % (A) 1 %; Eosinophils # (A) 0.7 k/uL (0-0.7); Eosinophils % (A) 7 %; HCT 40.4 % (34.0-46.0); HGB 13.4 gm/dL (11.4-16.0); Lymphocytes # (A) 3.3 k/uL (1.0-4.8); Lymphocytes % (A) 30 %; MCH 30.2 pg (25.0-35.0); MCHC 33.1 g/dL (31.0-37.0); MCV 91.1 fL (80.0-100.0); Monocytes # (A) 0.5 k/uL (0-1.0); Monocytes % (A) 5 %; Neutrophils # (A) 6.2 k/uL (1.3-7.7); Neutrophils % (A) 57 %; Platelet Count 316 k/uL (150-450); RBC 4.44 m/uL (3.80-5.40); RDW 13.4 % (11.5-15.5); WBC 10.8 k/uL (3.8-10.6)
[2020-02-22] MEDS ORDERED: PIPERACILLIN-TAZOBACTAM 3.375 GM in SODIUM CHLORIDE 0.9% 100 ML IVPB STA (16:53)
[2020-02-22] MEDS ORDERED: NALOXONE 0.4 MG/ML 1 ML VIAL IV PRN (16:55)
[2020-02-22] MEDS ORDERED: SODIUM CHLORIDE 0.9% 1,000 ML IV SCH (17:00)
[2020-02-22] MEDS: HYDROmorphone 0.5 MG/0.5 ML SYRINGE IVP PRN ×3 (17:24→23:58)
[2020-02-22] MEDS: INSULIN ASPART (NovoLOG) 100 UNIT/ML VIAL SQ SCH ×2 (18:51→20:33)
[2020-02-22 18:52] LABS: Glucose,Whole Blood 169 mg/dL (75-99)
[2020-02-22 20:16] LABS: Glucose,Whole Blood 107 mg/dL (75-99)
[2020-02-22] MEDS: DIVALPROEX 500 MG TABLET.DR PO SCH (20:44)
[2020-02-22] MEDS: risperiDONE 0.5 MG TAB PO SCH (20:44)
[2020-02-22] MEDS ORDERED: traZODone HCL 100 MG TAB PO SCH (21:00)
[2020-02-22 22:06] VITALS: RESP 18
[2020-02-22] MEDS: SODIUM CHLORIDE 0.9% 1,000 ML IV SCH (22:07)
[2020-02-22] MEDS ORDERED: traZODone HCL 100 MG TAB PO PRN (23:16)
[2020-02-22] MEDS: PIPERACILLIN-TAZOBACTAM 3.375 GM in SODIUM CHLORIDE 0.9% 100 ML IVPB SCH (23:58)
[2020-02-23] MEDS: ONDANSETRON 4 MG/2 ML VIAL IVP PRN ×2 (00:02→16:17)
[2020-02-23] MEDS: HYDROmorphone 0.5 MG/0.5 ML SYRINGE IVP PRN ×4 (03:02→16:17)
[2020-02-23] MEDS: LEVOTHYROXINE 75 MCG TAB PO SCH (06:27)
[2020-02-23 06:28] LABS: Glucose,Whole Blood 113 mg/dL (75-99)
[2020-02-23] MEDS: INSULIN ASPART (NovoLOG) 100 UNIT/ML VIAL SQ SCH ×4 (08:09→20:25)
[2020-02-23] MEDS: SODIUM CHLORIDE 0.9% 1,000 ML IV SCH ×2 (08:17→20:52)
[2020-02-23] MEDS: risperiDONE 0.5 MG TAB PO SCH (08:17)
[2020-02-23] MEDS: ASPIRIN 81 MG PO SCH (08:17)
[2020-02-23] MEDS: PANTOPRAZOLE 40 MG/10 ML VIAL IVP SCH (08:17)
[2020-02-23] MEDS: DULoxetine HCL 60 MG CAPSULE.DR PO SCH (08:17)
[2020-02-23] MEDS: DIVALPROEX 500 MG TABLET.DR PO SCH ×2 (08:17→20:53)
[2020-02-23] MEDS: NON FORMULARY DRUG (Ertugliflozin Pidolate [Steglatro] 15 MG Tablet) PO SCH (08:18)
[2020-02-23] MEDS: PIPERACILLIN-TAZOBACTAM 3.375 GM in SODIUM CHLORIDE 0.9% 100 ML IVPB SCH ×3 (09:21→23:17)
[2020-02-23 11:03] LABS: Basophils # (A) 0.1 k/uL (0-0.2); Basophils % (A) 1 %; Eosinophils # (A) 0.5 k/uL (0-0.7); Eosinophils % (A) 6 %; HGB 12.6 gm/dL (11.4-16.0); Lymphocytes # (A) 2.6 k/uL (1.0-4.8); Lymphocytes % (A) 30 %; MCH 29.8 pg (25.0-35.0); MCHC 33.1 g/dL (31.0-37.0); Mean Platelet Volume 8.6; Monocytes # (A) 0.4 k/uL (0-1.0); Monocytes % (A) 5 %; Neutrophils # (A) 5.1 k/uL (1.3-7.7); Neutrophils % (A) 58 %; Platelet Count 287 k/uL (150-450); RBC 4.22 m/uL (3.80-5.40); RDW 13.1 % (11.5-15.5); WBC 8.7 k/uL (3.8-10.6)
[2020-02-23 11:44] LABS: Glucose,Whole Blood 110 mg/dL (75-99)
--- NOTE | 2020-02-23 12:30 | P.GSCN ---
History of Present Illness Consult date: 02/23/20 History of present illness: CHIEF COMPLAINT: Abdominal pain HISTORY OF PRESENT ILLNESS: This is a 49-year-old female with a known past medical history of morbid obesity, small bowel obstruction secondary to adhesions, diabetes mellitus, hyperlipidemia, hypertension, recurrent UTIs and schizophrenia. She has a surgical history of open exploratory laparotomy with lysis of adhesions and reduction of incarcerated umbilical, ventral hernia on 11/12/2019 for small bowel obstruction with peritonitis secondary to lysis of adhesions. Patient also has a history of cholecystectomy and hysterectomy. Patient had been doing well. But about a week ago she started to have abdominal pain and nausea. She was seen by her PCP who ordered a computed tomography scan outpatient that was done at [facility] and there were concerns about a fluid collection behind her incision. Patient was then instructed to come to the emergency room for further evaluation. Patient denies any fever, chills, sweats, nausea or vomiting. Denies any change in her bowel movements. She is afebrile. She was started on antibiotics in the ER. PAST MEDICAL HISTORY: See list. PAST SURGICAL HISTORY: See list. MEDICATIONS: See list. ALLERGIES: See list. SOCIAL HISTORY: No illicit drug use. REVIEW OF SYSTEMS: CONSTITUTIONAL: Denies fever or chills. HEENT: Denies blurred vision, vision changes, or eye pain. Denies hemoptysis ENDOCRINE: Denies heat or cold intolerance. CARDIOVASCULAR: Denies chest pain or pressure. RESPIRATORY: No shortness of breath. GASTROINTESTINAL: Denies abdominal pain. Denies nausea or vomiting. NEURO: Denies history of seizures. PSYCH: No depression or suicidal ideation HEMATOLOGIC: Denies bleeding disorders. LYMPHATIC: The patient denies any lumps and bumps around the neck. GENITOURINARY: Denies any blood in urine or increased urinary frequency. MUSCULOSKELETAL: Denies myalgias. Denies joint swelling. Denies decreased range of motion beyond patients baseline. SKIN: Denies pruitis. Denies rash. PHYSICAL EXAM: VITAL SIGNS: Reviewed GENERAL: Well-developed in no acute distress. HEENT: No sclera icterus. Extraocular movements grossly intact. Moist buccal mucosa. Head is atraumatic, normocephalic. Hears conversational speech. No nasal drainage. NECK: Supple without lymphadenopathy. CHEST: Non-labored respirations and equal bilateral excursions. CARDIOVASCULAR: Regular rate with regular rhythm. Palpable 2+ radial pulses. ABDOMEN: Soft. Distended. Old incision site is healed nicely. Tenderness with palpation around the umbilicus MUSCULOSKELETAL: No clubbing or cyanosis. NEUROLOGIC: No focal or lateralizing signs. Cranial nerves II through XII grossly intact. PSYCH: Appropriate affect. Alert and oriented to person, place and time. SKIN: Well perfused. Good skin turgor. LABORATORY DATA: WBC 10.8 down to 8.7, hemoglobin 12.6, lipase 198 AST 26 and ALT 15 IMAGING: ASSESSMENT: 1. Seroma 2. Patient has no surgical history of mesh placement 3. Open exploratory laparotomy with lysis of adhesions and reduction of incarcerated umbilical, ventral hernia on 11/12/2019 4. Morbid obesity 5. Diabetes mellitus type 2, insulin-dependent 6. GERD 7. Hypertensive heart disease 8. Hypothyroidism 9. Hyperlipidemia 10. Generalized anxiety disorder 11. Schizoaffective disorder PLAN: -Repeat computed tomography scan of the abdomen and pelvis without contrast -Start patient on a clear liquid, carb consistent diet and advance as tolerated -Abdominal binder ordered -Continue to monitor CBC Thank you for this consultation Physician Mobile Patrol Officer note has been reviewed by physician. Signing provider agrees with the documented findings, assessment, and plan of care. Past Medical History Past Medical History: Diabetes Mellitus, Hyperlipidemia, Hypertension Additional Past Medical History / Comment(s): mutiple uti frequent, issues constipation vs diarrhea History of Any Multi-Drug Resistant Organisms: None Reported Past Surgical History: Bowel Resection, Section, Cholecystectomy, Hernia Repair, Hysterectomy, Orthopedic Surgery Additional Past Surgical History / Comment(s): bilat knees,thymus gland Past Anesthesia/Blood Transfusion Reactions: No Reported Reaction Past Psychological History: Anxiety, Depression, Panic Disorder, Schizoaffective Disorder Smoking Status: Never smoker Past Alcohol Use History: None Reported Past Drug Use History: None Reported - Past Family History Mother Family Medical History: Cancer Additional Family Medical History / Comment(s): lung Father Family Medical History: Myocardial Infarction ([place]) Medications and Allergies Home Medications Medication Instructions Recorded Confirmed Type lisinopriL [Zestril] 2.5 mg PO DAILY 10/12/18 02/22/20 History Omeprazole [PriLOSEC] 20 mg PO DAILY 01/12/19 02/22/20 History Aspirin [Adult Low Dose Aspirin EC] 81 mg PO DAILY 11/10/19 02/22/20 History Atorvastatin [Lipitor] 80 mg PO DAILY 11/10/19 02/22/20 History DULoxetine HCL [Cymbalta] 60 mg PO DAILY 11/10/19 02/22/20 History Fenofibrate 160 mg PO DAILY 11/10/19 02/22/20 History Insulin Glargine,Hum.rec.anlog 40 units SQ BID 11/10/19 02/22/20 History [Basaglar Kwikpen U-100] Levothyroxine Sodium [Synthroid] 150 mcg PO DAILY 11/10/19 02/22/20 History Ondansetron [Zofran] 4 mg PO Q6H PRN 11/10/19 02/22/20 History metFORMIN HCL [Glucophage] 1,000 mg PO BID 11/10/19 02/22/20 History oxyCODONE HCL/ACETAMINOPHEN 1 tab PO TID PRN 11/10/19 02/22/20 History [Percocet 7.5-325 mg] Ibuprofen [Motrin] 800 mg PO TID PRN 11/11/19 02/22/20 History Amoxic-Pot Clav 875-125Mg 1 tab PO Q12HR 3 Days #14 tab 11/14/19 02/22/20 Rx [Augmentin 875-125] Divalproex [Depakote] 500 mg PO BID 02/22/20 02/22/20 History Ertugliflozin Pidolate [Steglatro] 15 mg PO DAILY 02/22/20 02/22/20 History Semaglutide [Ozempic] 0.25 mg SQ TU 02/22/20 02/22/20 History Vitamin D3 50,000iu 50,000 unit PO Q30D 02/22/20 02/22/20 History risperiDONE 1.5 mg PO DAILY 02/22/20 02/22/20 History traZODone HCL 100 mg PO HS 02/22/20 02/22/20 History Allergies Allergy/AdvReac Type Severity Reaction Status Date / Time cephalexin [From Keflex] Allergy Rash/Hives Verified 02/22/20 16:57 propoxyphene Allergy Rash/Hives Verified 02/22/20 16:57 [From Darvocet-N] Surgical - Exam Vital Signs Temp Pulse Resp BP Pulse Ox 98.4 F 99 18 132/83 99 02/22/20 14:38 02/22/20 14:38 02/22/20 14:38 02/22/20 14:38 02/22/20 14:38 Results - Labs 02/23/20 10:51 02/22/20 15:10 Abnormal Lab Results - Last 24 Hours (Table) 02/22/20 02/22/20 02/22/20 Range/Units 15:10 15:10 15:10 WBC 10.8 H (3.8-10.6) k/uL Glucose 241 H (74-99) mg/dL POC Glucose (mg/dL) (75-99) mg/dL Ur Specific [place] 1.040 H (1.001-1.035) Urine Glucose (UA) 4+ H (Negative) Urine Ketones Trace H (Negative) 02/22/20 02/22/20 02/23/20 Range/Units 18:50 20:14 06:26 WBC (3.8-10.6) k/uL Glucose (74-99) mg/dL POC Glucose (mg/dL) 169 H 107 H 113 H (75-99) mg/dL Ur Specific [place] (1.001-1.035) Urine Glucose (UA) (Negative) Urine Ketones (Negative) 02/23/20 Range/Units 11:42 WBC (3.8-10.6) k/uL Glucose (74-99) mg/dL POC Glucose (mg/dL) 110 H (75-99) mg/dL Ur Specific [place] (1.001-1.035) Urine Glucose (UA) (Negative) Urine Ketones (Negative) Diabetes panel 02/22/20 Range/Units 15:10 Sodium 139 (137-145) mmol/L Potassium 3.9 (3.5-5.1) mmol/L Chloride 103 (98-107) mmol/L Carbon Dioxide 27 (22-30) mmol/L BUN 14 (7-17) mg/dL Creatinine 0.64 (0.52-1.04) mg/dL Glucose 241 H (74-99) mg/dL Calcium 9.3 (8.4-10.2) mg/dL AST 26 (14-36) U/L ALT 15 (4-34) U/L Alkaline Phosphatase 100 (38-126) U/L Total Protein 6.5 (6.3-8.2) g/dL Albumin 3.8 (3.5-5.0) g/dL Calcium panel 02/22/20 Range/Units 15:10 Calcium 9.3 (8.4-10.2) mg/dL Albumin 3.8 (3.5-5.0) g/dL Pituitary panel 02/22/20 Range/Units 15:10 Sodium 139 (137-145) mmol/L Potassium 3.9 (3.5-5.1) mmol/L Chloride 103 (98-107) mmol/L Carbon Dioxide 27 (22-30) mmol/L BUN 14 (7-17) mg/dL Creatinine 0.64 (0.52-1.04) mg/dL Glucose 241 H (74-99) mg/dL Calcium 9.3 (8.4-10.2) mg/dL Adrenal panel 02/22/20 Range/Units 15:10 Sodium 139 (137-145) mmol/L Potassium 3.9 (3.5-5.1) mmol/L Chloride 103 (98-107) mmol/L Carbon Dioxide 27 (22-30) mmol/L BUN 14 (7-17) mg/dL Creatinine 0.64 (0.52-1.04) mg/dL Glucose 241 H (74-99) mg/dL Calcium 9.3 (8.4-10.2) mg/dL Total Bilirubin 0.4 (0.2-1.3) mg/dL AST 26 (14-36) U/L ALT 15 (4-34) U/L Alkaline Phosphatase 100 (38-126) U/L Total Protein 6.5 (6.3-8.2) g/dL Albumin 3.8 (3.5-5.0) g/dL
--- NOTE | 2020-02-23 12:36 | CT ---
EXAMINATION TYPE: CT abdomen pelvis wo con DATE OF EXAM: 02/23/2020 COMPARISON: CT dated 02/20/2020, 11/10/2019 HISTORY: Abdominal pain, possible intra-abdominal/mesh infection, fluid collection CT DLP: 1683.4 mGycm Automated exposure control for dose reduction was used. TECHNIQUE: Helical acquisition of images from the lung bases through the pelvis. FINDINGS: Lack of intravenous contrast could compromise sensitivity. Along anterior abdominal wall there is abnormal skin thickening, increased attenuation is present wit hin the subcutaneous fat similar to most recent CT. Focal outpouching of the abdominal wall in the in fraumbilical location is again seen containing only fat. LUNG BASES: No significant abnormality is appreciated. AORTA: No significant abnormality is appreciated. LIVER/GB: Liver is enlarged. There is low attenuation consistent with hepatic steatosis, gallbladder is absent.. PANCREAS: No significant abnormality is seen. SPLEEN: Punctate calcification again noted within the spleen. ADRENALS: No significant abnormality is seen. KIDNEYS: No significant abnormality is seen. REPRODUCTIVE ORGANS: Not seen. URINARY BLADDER: No significant abnormality is seen. BOWEL: No significant abnormality is seen. There is some contrast material present within the colon likely from prior exam FREE AIR: No Free Air is visible. ASCITES: None visible. PELVIC ADENOPATHY: None visualized. RETROPERITONEAL ADENOPATHY: No Retroperitoneal Adenopathy visible. OSSEOUS STRUCTURES: No significant abnormality is seen. IMPRESSION: CORRELATE FOR CELLULITIS.
[2020-02-23 16:47] LABS: Glucose,Whole Blood 166 mg/dL (75-99)
--- NOTE | 2020-02-23 18:11 | HP ---
HISTORY AND PHYSICAL CHIEF COMPLAINT: Intractable abdominal pain following surgery. HISTORY OF PRESENT ILLNESS: This is another recent admission for this 49-year-old white female. She came into the hospital several weeks ago with abdominal pain and had a laparotomy and was found to have an umbilical hernia and bowel obstruction. This was repaired. Postoperatively she was doing fairly well and then she started to develop increasing abdominal discomfort and it steadily grew worse. It was felt that she probably should go back into the hospital when she started to have nausea and vomiting. She has had no hematemesis, melena, hematochezia, etc. She has been passing gas and stool. REVIEW OF SYSTEMS: She has had no headaches, neurologic problems, shortness of breath, cough, hemoptysis, chest pain, frequency, urgency, dysuria, etc. Past medical history, family history, and personal and social histories reveal that she is on: 1. Ozempic 0.25 mg once a week. 2. Steglatro 15 mg once a day. 3. Atorvastatin 80 at bedtime. 4. Augmentin 875 twice a day. 5. Trazodone 100 mg at bedtime for sleep. 6. Metformin 1 gram twice a day. 7. Depakote 250 mg 2 tablets twice a day. 8. Percocet 7.5 q.4 p.r.n. 9. Basaglar 30 units once a day. 10.Duloxetine 60 units once a day. 11.Zofran p.r.n. 12.Risperidone 3 mg once a day. 13.Vitamin D3. 14.Fenofibrate 160 once a day. 15.Levothyroxine 0.15 mg once a day. 16.Motrin 800 mg 3 times a day. 17.Omeprazole 20 mg once a day. Her diabetes is under fairly good control. She does not smoke or drink. PHYSICAL EXAMINATION: Blood pressure is 132/78 with a pulse of 81, respirations of 16. She is afebrile. In general she appeared to be overweight and uncomfortable. Skin color was normal. Skin was dry. Lymph nodes were not enlarged. Head, ears, eyes, nose, mouth and throat were normal. Neck veins were not distended. Thyroid was not enlarged. Chest was clear. Cardiac exam was normal. The abdomen was protuberant and soft. Bowel sounds were present. She had tenderness just below the umbilicus on the right and in the right lower quadrant. There were no definite masses. Surgical scars looked good. Extremities were normal. Neurologically she was intact. IMPRESSION: 1. Progressive abdominal pain in the right lower quadrant, etiology unknown. 2. Diabetes mellitus. 3. Hyperlipidemia. 4. Hypertension. 5. Hypothyroidism. 6. Obesity. PLAN: 1. Bed rest. 2. IV fluids. 3. N.p.o. 4. General surgery consult. MMODL / MARGIN: [id number] /
--- NOTE | 2020-02-23 18:23 | PN ---
PROGRESS NOTE DATE OF SERVICE: 02/23/2020 CHIEF COMPLAINT: Abdominal pain. HISTORY OF PRESENT ILLNESS: This lady is still quite uncomfortable. She has not had any vomiting. She has had no fever or chills. She is passing gas occasionally. PHYSICAL EXAMINATION: Her chest is clear. Cardiac exam is normal. The abdomen is process tank tender over the middle aspect and toward the right lower quadrant. IMPRESSION: 1. Postoperative abdominal pain, etiology unknown. 2. Diabetes. PLAN: 1. Continue with IV fluids and analgesics. 2. N.p.o. until she is seen by Surgery. MMODL / IJN: [id number] /
[2020-02-23 20:23] LABS: Glucose,Whole Blood 116 mg/dL (75-99)
[2020-02-24] MEDS: HYDROmorphone 0.5 MG/0.5 ML SYRINGE IVP PRN (00:22)
[2020-02-24] MEDS: ONDANSETRON 4 MG/2 ML VIAL IVP PRN (00:22)
[2020-02-24] MEDS: LEVOTHYROXINE 75 MCG TAB PO SCH (06:27)
[2020-02-24 06:31] LABS: Glucose,Whole Blood 132 mg/dL (75-99)
[2020-02-24 08:03] VITALS: BP 109/72; PULSE 72; TEMP 97.9
[2020-02-24 08:03] LABS: Basophils # (A) 0.1 k/uL (0-0.2); Basophils % (A) 1 %; Eosinophils # (A) 0.4 k/uL (0-0.7); Eosinophils % (A) 6 %; HCT 35.9 % (34.0-46.0); HGB 11.6 gm/dL (11.4-16.0); Lymphocytes # (A) 2.4 k/uL (1.0-4.8); Lymphocytes % (A) 35 %; MCH 29.1 pg (25.0-35.0); MCHC 32.4 g/dL (31.0-37.0); MCV 89.8 fL (80.0-100.0); Mean Platelet Volume 8.3; Monocytes # (A) 0.4 k/uL (0-1.0); Monocytes % (A) 5 %; Neutrophils # (A) 3.5 k/uL (1.3-7.7); Neutrophils % (A) 52 %; Platelet Count 250 k/uL (150-450); RDW 13.1 % (11.5-15.5); WBC 6.7 k/uL (3.8-10.6)
[2020-02-24] MEDS: INSULIN ASPART (NovoLOG) 100 UNIT/ML VIAL SQ SCH (08:03)
[2020-02-24] MEDS: PIPERACILLIN-TAZOBACTAM 3.375 GM in SODIUM CHLORIDE 0.9% 100 ML IVPB SCH (08:03)
[2020-02-24] MEDS: NON FORMULARY DRUG (Ertugliflozin Pidolate [Steglatro] 15 MG Tablet) PO SCH (08:04)
[2020-02-24] MEDS: DIVALPROEX 500 MG TABLET.DR PO SCH (08:04)
[2020-02-24] MEDS: DULoxetine HCL 60 MG CAPSULE.DR PO SCH (08:04)
[2020-02-24] MEDS: PANTOPRAZOLE 40 MG/10 ML VIAL IVP SCH (08:04)
[2020-02-24] MEDS: ASPIRIN 81 MG PO SCH (08:04)
[2020-02-24] MEDS: risperiDONE 0.5 MG TAB PO SCH (08:04)
--- NOTE | 2020-02-24 08:38 | P.PN ---
Progress Note - Text Progress Note Date: 02/24/20 Patient seen and re-evaluated. Findings of repeat CT of the abdomen and pelvis reviewed including comparison on previous studies. images independently reviewed by me. Patient has no history of a mesh surgery. No evidence of intra- abdominalfluid collection as described on previous computed tomography scan. No recurrent bowel containing hernia identified. Findings only consistent of edema of pannus and subcutaneous tissue. Clinically patient does not have erythema of the skin. Leukocytosis has resolved. Recommend abdominal binder for comfort. Agreeable with discharge with follow-up outpatient at the bariatric center for evaluation of panniculitis n morbid obesity. Patient reports weighing over 550 pounds with independent weight loss on her own down to 260 pounds.
[2020-02-24] MEDS: SODIUM CHLORIDE 0.9% 1,000 ML IV SCH (09:01)
--- NOTE | 2020-02-24 10:17 | P.PN ---
Subjective Progress Note Date: 02/24/20 Principal diagnosis: Abdominal pain Patient doing well today. Her pain is improved. She would like to go home. She is tolerating her diet. No fevers. Objective - Vital Signs Vital signs: Vital Signs Temp 97.9 F 02/24/20 08:02 Pulse 72 02/24/20 08:24 Resp 18 02/24/20 08:24 BP 109/72 02/24/20 08:02 Pulse Ox 98 02/24/20 08:02 Intake & Output 02/23/20 02/24/20 02/24/20 18:59 06:59 18:59 Intake Total 440 940 Balance 440 940 Intake: Oral 440 940 Other: Voiding Method Toilet Toilet Toilet # Voids 1 2 2 - Exam Abdomen: Soft, nondistended, minimal tenderness - Labs CBC & Chem 7: 02/24/20 07:38 02/22/20 15:10 Labs: Abnormal Lab Results - Last 24 Hours (Table) 02/23/20 02/23/20 02/23/20 Range/Units 11:42 16:44 20:22 POC Glucose (mg/dL) 110 H 166 H 116 H (75-99) mg/dL 02/24/20 Range/Units 06:30 POC Glucose (mg/dL) 132 H (75-99) mg/dL Microbiology - Last 24 Hours (Table) 02/22/20 17:12 Blood Culture - Preliminary Blood No Growth after 24 hours Assessment and Plan (1) Abdominal pain Narrative/Plan: Patient doing well today. May discharge. Follow-up with primary and Dr. Geronimo post discharge. Current Visit: Yes Status: Acute Code(s): R10.9 - UNSPECIFIED ABDOMINAL PAIN SNOMED Code(s): 71339549
[2020-02-24 12:03] LABS: Glucose,Whole Blood 202 mg/dL (75-99)
--- NOTE | 2020-02-24 16:32 | DS ---
DISCHARGE SUMMARY CHIEF COMPLAINT: Postsurgical abdominal pain. HISTORY OF PRESENT ILLNESS AND PHYSICAL EXAMINATION: Details of this lady's history and physical can be found in the initial workup. LABORATORY STUDIES: While she was in a hospital she had laboratory studies, details of which can be found in the laboratory section of her chart. COURSE IN THE HOSPITAL: After admission she was placed on bedrest, started on intravenous fluids and seen by General Surgery. The consensus of opinion was that she had a seroma and nothing more. There was no intervention. It was felt that she could be discharged home on usual activity and medication and will follow up in the office in a few days. FINAL DIAGNOSIS: 1. Postoperative abdominal pain. 2. Wound seroma. 3. Obesity. 4. Diabetes. OPERATIONS: None. CONSULTATIONS: General surgery. She is improved. MMODL / MARGIN: [id number] /
== END 2020-02-24 12:38 | disposition home or self-care (01) ==
LOC: EC 14:33 → 1SOBS 17:07
PROVIDERS: ADMIT Family Medicine; ATTEND Family Medicine
DX: G89.18 Other acute postprocedural pain (principal); L76.34 Postprocedural seroma of skin and subcutaneous tissue following other procedure; E66.01 Morbid (severe) obesity due to excess calories; E11.65 Type 2 diabetes mellitus with hyperglycemia; E78.5 Hyperlipidemia, unspecified; F32.9 Major depressive disorder, single episode, unspecified; F41.0 Panic disorder [episodic paroxysmal anxiety]; F25.9 Schizoaffective disorder, unspecified; E87.2 Acidosis; E03.9 Hypothyroidism, unspecified; K21.9 Gastro-esophageal reflux disease without esophagitis; I11.9 Hypertensive heart disease without heart failure; F41.1 Generalized anxiety disorder; Z87.440 Personal history of urinary (tract) infections; Z98.890 Other specified postprocedural states; Z87.19 Personal history of other diseases of the digestive system; Z79.899 Other long term (current) drug therapy; Z79.82 Long term (current) use of aspirin; Z79.4 Long term (current) use of insulin; Z79.890 Hormone replacement therapy; Z79.1 Long term (current) use of non-steroidal anti-inflammatories (NSAID); Z88.1 Allergy status to other antibiotic agents; Z88.5 Allergy status to narcotic agent; Z90.49 Acquired absence of other specified parts of digestive tract; Z90.710 Acquired absence of both cervix and uterus; Z90.89 Acquired absence of other organs; Z68.42 Body mass index [BMI] 45.0-49.9, adult; Z80.1 Family history of malignant neoplasm of trachea, bronchus and lung; Z82.49 Family history of ischemic heart disease and other diseases of the circulatory system
CPT/HCPCS: 96361 ×2; 96366 ×3; 96375 ×2; 96376 ×4; 96365; 99285; 36415; 80053; 82150; 83605; 83690; 85025 ×3; 81003; 87040; 74176; G0378 ×3; J2543 ×3; J2270; J2405 ×3; C9113 ×2; J1170 ×3

== ENCOUNTER 2020-05-16 11:05 | Day surgery (SDC) | payer OTHER ==
[2020-05-14 11:07] VITALS: BMI 44.0
--- NOTE | 2020-05-16 02:24 | P.GSHP ---
History of Present Illness H&P Date: 05/16/20 CHIEF COMPLAINT: Recurrent ventral hernia. HISTORY OF PRESENT ILLNESS: The patient is a 49-year-old female who presents with a history of swelling along the right upper abdomen. Findings were consistent with possible incisional hernia. Now she presents for further evaluation and management. PAST MEDICAL HISTORY: Please see list. PAST SURGICAL HISTORY: Please see list. MEDICATIONS: Please see list. ALLERGIES: Please see list. SOCIAL HISTORY: No illicit drug use FAMILY HISTORY: No reports of Crohn disease or ulcerative colitis. REVIEW OF ORGAN SYSTEMS: CONSTITUTIONAL: No reports of fevers or chills. GI: Denies any blood in stools or constipation. PHYSICAL EXAM: VITAL SIGNS: Stable GENERAL: Well-developed pleasant female in no acute distress. HEENT: No scleral icterus. Extraocular movements grossly intact. Moist buccal mucosa. NECK: Supple without lymphadenopathy. CHEST: Unlabored respirations. Equal bilateral excursions. CARDIOVASCULAR: Regular rate and rhythm. Distal 2+ pulses. ABDOMEN: Soft, nondistended. Tender along the right upper abdomen. Protubera nt. MUSCULOSKELETAL: No clubbing, cyanosis, or edema. ASSESSMENT: 1. Recurrent ventral hernia. 2. Morbid obesity, BMI 44.1 PLAN: 1. Recommend proceeding with robotic ventral hernia repair with mesh. 2. Benefits and risks of surgical intervention was discussed including possibility of open technique. 3. DVT prophylaxis. 4. Antibiotic prophylaxis. Past Medical History Past Medical History: Diabetes Mellitus, GERD/Reflux, Hyperlipidemia Additional Past Medical History / Comment(s): ventral hernia hx frequent uti's,twisted bowel History of Any Multi-Drug Resistant Organisms: None Reported Past Surgical History: Bowel Resection, Section, Cholecystectomy, Hernia Repair, Hysterectomy, Joint Replacement, Orthopedic Surgery Additional Past Surgical History / Comment(s): bilat knees replaced,thymus gland Past Anesthesia/Blood Transfusion Reactions: No Reported Reaction Additional Past Anesthesia/Blood Transfusion Reaction / Comment(s): no problems with prior blood transfusion in 1994 Smoking Status: Never smoker - Past Family History Mother Family Medical History: Cancer Additional Family Medical History / Comment(s): lung Father Family Medical History: Myocardial Infarction ([place]) Medications and Allergies Home Medications Medication Instructions Recorded Confirmed Type Omeprazole [PriLOSEC] 20 mg PO QAM 01/12/19 05/14/20 History Aspirin [Adult Low Dose Aspirin EC] 81 mg PO DAILY 11/10/19 05/14/20 History Atorvastatin [Lipitor] 80 mg PO DAILY 11/10/19 05/14/20 History DULoxetine HCL [Cymbalta] 30 mg PO QAM 11/10/19 05/14/20 History Fenofibrate 160 mg PO DAILY 11/10/19 05/14/20 History Levothyroxine Sodium [Synthroid] 150 mcg PO QAM 11/10/19 05/14/20 History Ondansetron [Zofran] 4 mg PO Q6H PRN 11/10/19 05/14/20 History oxyCODONE HCL/ACETAMINOPHEN 1 tab PO TID PRN 11/10/19 05/14/20 History [Percocet 7.5-325 mg] Ibuprofen [Motrin] 800 mg PO TID PRN 11/11/19 05/14/20 History traZODone HCL 100 mg PO HS 02/22/20 05/14/20 History Divalproex ER [Depakote ER] 500 mg PO BID 05/14/20 05/14/20 History Ergocalciferol [Vitamin D2] 50,000 unit PO Q30D 05/14/20 05/14/20 History Furosemide [Lasix] 40 mg PO DAILY PRN 05/14/20 05/14/20 History Insulin Glargine,Hum.rec.anlog 50 unit SQ HS 05/14/20 05/14/20 History [Lantus Solostar] Lumateperone Tosylate [Caplyta] 42 mg PO HS 05/14/20 05/14/20 History Nystatin 100,000 Unit/gm Powd 1 applic TOPICAL BID PRN 05/14/20 05/14/20 History [Mycostatin Powder] metFORMIN HCL [Glucophage] 1,000 mg PO BID 05/14/20 05/14/20 History Allergies Allergy/AdvReac Type Severity Reaction Status Date / Time cephalexin [From Keflex] Allergy Rash/Hives Verified 05/14/20 10:48 propoxyphene Allergy Rash/Hives Verified 05/14/20 10:48 [From Darvocet-N]
[~2020-05-16 11:05] MED LIST: ACETAMINOPHEN TAB 500 MG TAB PO STA; CLINDAMYCIN 900 MG in DEXTROSE 5% IN WATER 50 ML IVPB PRN; DEXAMETHASONE SOD PHOSPHATE 4 MG/ML 1 ML VIAL IV ONE; GABAPENTIN 300 MG CAP PO STA; HEPARIN SODIUM,PORCINE 5,000 UNIT/ML 1 ML VIAL SQ PRN; LACTATED RINGERS 1,000 ML IV SCH; LIDOCAINE 1% (10MG/ML) FOR IV START INTRADERMA PRN; MELOXICAM 7.5 MG TAB PO ONE; MIDAZOLAM 2 MG/2 ML VIAL IV PRN; ONDANSETRON 4 MG/2 ML VIAL IVP ONE; SCOPOLAMINE 1.5MG/72HR PATCH TRANSDERM STA; ceFAZolin 3 GM in SODIUM CHLORIDE 0.9% 100 ML IVPB PRN
[2020-05-16 12:57] VITALS: TEMP 97.4
[2020-05-16 13:11] LABS: Glucose,Whole Blood 166 mg/dL (75-99)
[2020-05-16 14:37] LABS: Basophils # (A) 0.1 k/uL (0-0.2); Basophils % (A) 1 %; Eosinophils # (A) 0.3 k/uL (0-0.7); Eosinophils % (A) 3 %; HCT 40.5 % (34.0-46.0); HGB 14.2 gm/dL (11.4-16.0); Lymphocytes # (A) 3.2 k/uL (1.0-4.8); Lymphocytes % (A) 38 %; MCH 30.5 pg (25.0-35.0); MCV 87.3 fL (80.0-100.0); Mean Platelet Volume 9.7; Monocytes # (A) 0.4 k/uL (0-1.0); Monocytes % (A) 5 %; Neutrophils # (A) 4.3 k/uL (1.3-7.7); Neutrophils % (A) 51 %; Platelet Count 260 k/uL (150-450); RBC 4.63 m/uL (3.80-5.40); RDW 13.7 % (11.5-15.5); WBC 8.5 k/uL (3.8-10.6)
[2020-05-16 14:41] LABS: ALT 17 U/L (4-34); AST 25 U/L (14-36); African American GFR (CKD) >90 (>60 ml/min/1.73 sqM); Albumin 3.9 g/dL (3.5-5.0); Alkaline Phosphatase 103 U/L (38-126); Anion Gap 7 mmol/L; Blood Urea Nitrogen 16 mg/dL (7-17); Calcium 9.3 mg/dL (8.4-10.2); Carbon Dioxide 29 mmol/L (22-30); Chloride 103 mmol/L (98-107); Glucose 172 mg/dL (74-99); Non-African American GFR(CKD) >90 (>60 ml/min/1.73 sqM); Potassium 3.7 mmol/L (3.5-5.1); Sodium 139 mmol/L (137-145); Total Bilirubin 0.4 mg/dL (0.2-1.3); Total Protein 6.7 g/dL (6.3-8.2)
[2020-05-16] MEDS ORDERED: PROPOFOL 10 MG/ML 20 ML VIAL IV ONE (15:05)
[2020-05-16] MEDS ORDERED: LIDOCAINE 1% INJ 10MG/ML (20 ML MDV) ONE (15:05)
[2020-05-16] MEDS ORDERED: METOPROLOL TARTRATE 5 MG/5 ML VIAL IVP ONE (15:05)
[2020-05-16] MEDS ORDERED: SUCCINYLCHOLINE CHLORIDE 100 MG/5 ML SYR IV ONE (15:05)
[2020-05-16] MEDS ORDERED: fentaNYL (PF) 50 MCG/ML 2 ML AMP ONE (15:05)
[2020-05-16] MEDS ORDERED: GLYCOPYRROLATE 0.2 MG/ML 2 ML VIAL ONE (15:05)
[2020-05-16] MEDS ORDERED: MIDAZOLAM 2 MG/2 ML VIAL ONE (15:05)
[2020-05-16] MEDS ORDERED: NEOSTIGMINE 1 MG/ML 10 ML VIAL ONE (15:05)
[2020-05-16] MEDS ORDERED: ROCURONIUM 10 MG/ML (10 ML VIAL) IV ONE (15:05)
[2020-05-16] MEDS ORDERED: BUPIVACAINE (PF) 0.5% 30 ML VIAL SQ ONE (15:37)
[2020-05-16] MEDS: HYDROmorphone 0.5 MG/0.5 ML SYRINGE IVP PRN ×2 (18:05→18:15)
--- NOTE | 2020-05-16 18:33 | P.OP ---
Date of Procedure: 05/16/20 Description of Procedure: SURGEON: YARELIS HERNANDES MD DIGITAL MARKETING EXECUTIVE: None. PREOPERATIVE DIAGNOSES: 1. Recurrent incisional hernia with intermittent small bowel obstruction 2. Morbid obesity due to excess calories, BMI 43.9 3. History multiple abdominal surgeries 4. Diabetes type 2, insulin-dependent 5. Generalized anxiety disorder 6. Schizoaffective disorder 7. Depressive disorder 8. Chronic pain syndrome 9. Gastroesophageal reflux disease 10. Hypertensive heart disease 11. Hypothyroidism 12. Hyperlipidemia 13. Panic disorder POSTOPERATIVE DIAGNOSES: 1. Recurrent incisional hernia with intermittent small bowel obstruction 2. Morbid obesity due to excess calories, BMI 43.9 3. History multiple abdominal surgeries 4. Diabetes type 2, insulin-dependent 5. Generalized anxiety disorder 6. Schizoaffective disorder 7. Depressive disorder 8. Chronic pain syndrome 9. Gastroesophageal reflux disease 10. Hypertensive heart disease 11. Hypothyroidism 12. Hyperlipidemia 13. Panic disorder 14. Incisional hernia lower midline incarcerated, 5-cm 15. Severe diffuse abdominal peritoneal adhesions from omentum to abdominal wall OPERATION: 1. Robotic-assisted daVinci Xi laparoscopic extensive lysis of adhesions over 1.5 hours 2. Robotic-assisted daVinci Xi laparoscopic repair of recurrent incarcerated incisional ventral hernia 5 x 5 cm with 11.[address] mesh ANESTHESIA: General with local ESTIMATED BLOOD LOSS: 5 mL. SPECIMENS: None. COMPLICATIONS: None. Operative Findings: 1. Severe intra-abdominal adhesions throughout the abdomen greater omentum to abdominal wall requiring over 1.5 hours extensive lysis of adhesions with vessel sealer and scissors with bouvie cautery 2. Lower midline incisional hernia 5 cm reduced and closed using non-absorbable 1-0 VLOC pursestring fashion and fascial imbrication for closure of fascia 3. Severe interloop adhesions small bowel including sigmoid colon and cecum in the pelvis from previous hysterectomy 4. Appendix adherent within the pelvis above the bladder from previous hysterectomy with adhesions lysed INDICATIONS: The patient is a 49-year-old female who presents with current incisional hernia the lower abdomen. Surgical intervention with laparoscopic versus robotic and open techniques were reviewed. Placement of mesh was also reviewed. Benefits and risks were thoroughly described. Informed consent was obtained. DESCRIPTION OF PROCEDURE: The patient was brought into the operating room and laid in supine position. After general induction, the abdomen had been prepped and draped in standard sterile fashion. Ioban draping was also placed. Prior to incision, a timeout protocol was confirmed with surgical team regarding the patient's name including procedures to be performed. The robot was primed prior to the procedure. A field block using local anesthetic was placed along hernia site including the proposed port sites. Initial incision was made with an #11 blade along the left upper quadrant. A 0 degree 5 mm laparoscopic trocar entry was performed. Diagnostic laparoscopy demonstrated severe peritoneal adhesions along the midline including lower abdomen. Peritoneal adhesions of small bowel to the abdominal wall along the midline was identified. A 8 mm trocars were placed along the left lateral abdominal wall. The 5-mm port was exchanged for an 12 mm laparoscopic port. Placements of the ports were 20 cm from the target anatomy and 10 cm apart. The da Black XI robot was previously primed, prepped and draped then docked along the right side of the patient. I sat at the robot Da Black XI console where working arms of the robot including Bovie cautery connected to robotic scissors, vessel sealer and graspers were placed by the commercial escrow assistant. Greater omental adhesions to abdominal wall including small bowel adhesions were addressed with scissors and vessel sealer including blunt dissection. Extensive lysis of adhesions occurred over 1.5 hours without enterotomies with additional dissection in the pelvis identifying the appendix above the bladder. The appendix including cecum were lysed from its surrounding tissues. Due to the extensive nature of adhesions involving the cecum and sigmoid colon, aggressive dissection was deferred. The hernia bordering fascia was cleaned of peritoneal fat. Next, hemostasis was checked with cautery. The hernia defect was oversewn initially in a pursestring fashion after being measured at 5 cm. Closure using #1 VLOC with fascial imbrication 3 was performed. Mesh placement using 11.[address] mesh was placed with the rough side towards the abdominal wall and sutured using nonabsorbable 2-0 V LOC. A final endoscopic imaging was obtained. All instruments and pneumoperitoneum were evacuated from the abdominal cavity. The da Black XI robot was undocked from the patient. I re-scrubbed into the case for closure of incisions. The incisions were reapproximated using 4-0 Monocryl in an interrupted subcuticular fashion. Liquid glue was applied to the skin. At the end of the procedure, needle, sponge, and instrument count had been verified correct by surgical instrument technician. The patient was taken to the postanesthesia care unit in stable condition with abdominal binder. Plan - Discharge Summary Discharge Rx Participant: No New Discharge Prescriptions: New Cyclobenzaprine [Flexeril] 10 mg PO TID #30 tab Acetaminophen Tab [Tylenol Tab] 1,000 mg PO Q6HR PRN #30 tablet PRN Reason: Pain Continue Omeprazole [PriLOSEC] 20 mg PO QAM Atorvastatin [Lipitor] 80 mg PO DAILY Levothyroxine Sodium [Synthroid] 150 mcg PO QAM Aspirin [Adult Low Dose Aspirin EC] 81 mg PO DAILY DULoxetine HCL [Cymbalta] 30 mg PO QAM Fenofibrate 160 mg PO DAILY Ondansetron [Zofran] 4 mg PO Q6H PRN PRN Reason: Nausea oxyCODONE HCL/ACETAMINOPHEN [Percocet 7.5-325 mg] 1 tab PO TID PRN PRN Reason: Pain Ibuprofen [Motrin] 800 mg PO TID PRN PRN Reason: Pain traZODone HCL 100 mg PO HS Nystatin 100,000 Unit/gm Powd [Mycostatin Powder] 1 applic TOPICAL BID PRN PRN Reason: abdominal fold Ergocalciferol [Vitamin D2 (DRISDOL)] 50,000 unit PO Q30D Insulin Glargine,Hum.rec.anlog [Lantus Solostar] 50 unit SQ HS Furosemide [Lasix] 40 mg PO DAILY PRN PRN Reason: feet swelling Lumateperone Tosylate [Caplyta] 42 mg PO HS metFORMIN HCL [Glucophage] 1,000 mg PO BID Divalproex ER [Depakote ER] 500 mg PO BID Discharge Medication List Omeprazole [PriLOSEC] 20 mg PO QAM 01/12/19 [History] Aspirin [Adult Low Dose Aspirin EC] 81 mg PO DAILY 11/10/19 [History] Atorvastatin [Lipitor] 80 mg PO DAILY 11/10/19 [History] DULoxetine HCL [Cymbalta] 30 mg PO QAM 11/10/19 [History] Fenofibrate 160 mg PO DAILY 11/10/19 [History] Levothyroxine Sodium [Synthroid] 150 mcg PO QAM 11/10/19 [History] Ondansetron [Zofran] 4 mg PO Q6H PRN 11/10/19 [History] oxyCODONE HCL/ACETAMINOPHEN [Percocet 7.5-325 mg] 1 tab PO TID PRN 11/10/19 [History] Ibuprofen [Motrin] 800 mg PO TID PRN 11/11/19 [History] traZODone HCL 100 mg PO HS 02/22/20 [History] Divalproex ER [Depakote ER] 500 mg PO BID 05/14/20 [History] Ergocalciferol [Vitamin D2 (DRISDOL)] 50,000 unit PO Q30D 05/14/20 [History] Furosemide [Lasix] 40 mg PO DAILY PRN 05/14/20 [History] Insulin Glargine,Hum.rec.anlog [Lantus Solostar] 50 unit SQ HS 05/14/20 [History] Lumateperone Tosylate [Caplyta] 42 mg PO HS 05/14/20 [History] Nystatin 100,000 Unit/gm Powd [Mycostatin Powder] 1 applic TOPICAL BID PRN 05/14/20 [History] metFORMIN HCL [Glucophage] 1,000 mg PO BID 05/14/20 [History] Acetaminophen Tab [Tylenol Tab] 1,000 mg PO Q6HR PRN #30 tablet 05/16/20 [Rx] Cyclobenzaprine [Flexeril] 10 mg PO TID #30 tab 05/16/20 [Rx] Follow up Appointment(s)/Referral(s): Yarelis Hernandes MD [STAFF PHYSICIAN] - 05/21/20 Patient Instructions/Handouts: Laparoscopic Herniorrhaphy (DC), Abdominal Binder (DC), Lysis of Abdominal Adhesions (IP) Activity/Diet/Wound Care/Special Instructions: NOTIFY YOUR PAIN PROVIDER FOR ADDITIONAL NARCOTICS. Using antibacterial soap. No lifting over 4 pounds 4 weeks, May 30September shower. No bathtub soaks for 2 weeks, May 30 Wear abdominal binder daily for comfort except for showering. Diet as tolerated. Use Tylenol and ibuprofen or Aleve scheduled for the next 24-48 hours for best pain relief. Use ice along incisions for the today to prevent swelling. Discharge Disposition: HOME SELF-CARE
[2020-05-16 19:31] LABS: Glucose,Whole Blood 327 mg/dL (75-99)
[2020-05-16] MEDS ORDERED: INSULIN ASPART (NovoLOG) 100 UNIT/ML VIAL SQ ONE (19:33)
[2020-05-16 19:42] VITALS: RESP 20
[2020-05-16 20:10] VITALS: BP 131/87
[2020-05-16 20:29] LABS: Glucose,Whole Blood 289 mg/dL (75-99)
[2020-05-16 20:34] VITALS: PULSE 110
== END 2020-05-16 20:38 | disposition home or self-care (01) ==
LOC: OR 11:05
PROVIDERS: ATTEND Surgery Plastic and Reconstructive Surgery
DX: K43.0 Incisional hernia with obstruction, without gangrene (principal); K66.0 Peritoneal adhesions (postprocedural) (postinfection); E66.01 Morbid (severe) obesity due to excess calories; Z68.41 Body mass index [BMI] 40.0-44.9, adult; E11.9 Type 2 diabetes mellitus without complications; K21.9 Gastro-esophageal reflux disease without esophagitis; E78.5 Hyperlipidemia, unspecified; F41.1 Generalized anxiety disorder; F25.9 Schizoaffective disorder, unspecified; F32.9 Major depressive disorder, single episode, unspecified; G89.4 Chronic pain syndrome; I11.9 Hypertensive heart disease without heart failure; E03.9 Hypothyroidism, unspecified; F41.0 Panic disorder [episodic paroxysmal anxiety]; Z96.653 Presence of artificial knee joint, bilateral; Z79.82 Long term (current) use of aspirin; Z79.890 Hormone replacement therapy; Z79.4 Long term (current) use of insulin; Z79.899 Other long term (current) drug therapy; Z88.1 Allergy status to other antibiotic agents; Z88.5 Allergy status to narcotic agent; Z87.440 Personal history of urinary (tract) infections; Z87.19 Personal history of other diseases of the digestive system; Z80.1 Family history of malignant neoplasm of trachea, bronchus and lung; Z82.49 Family history of ischemic heart disease and other diseases of the circulatory system; Z90.49 Acquired absence of other specified parts of digestive tract; Z90.710 Acquired absence of both cervix and uterus; Z98.890 Other specified postprocedural states
CPT/HCPCS: 80053; 85025; 49657; C1781; J2250; J1100; J2710; J0690; J2001; J3010; J0330; J2704; J1170

== ENCOUNTER 2020-07-11 06:52 | Day surgery (SDC) | payer OTHER ==
[2020-07-10 08:41] VITALS: BMI 45.7
[~2020-07-11 06:52] MED LIST changes: -ACETAMINOPHEN TAB 500 MG TAB PO STA; -CLINDAMYCIN 900 MG in DEXTROSE 5% IN WATER 50 ML IVPB PRN; -DEXAMETHASONE SOD PHOSPHATE 4 MG/ML 1 ML VIAL IV ONE; -GABAPENTIN 300 MG CAP PO STA; -HEPARIN SODIUM,PORCINE 5,000 UNIT/ML 1 ML VIAL SQ PRN; -LIDOCAINE 1% (10MG/ML) FOR IV START INTRADERMA PRN; -MELOXICAM 7.5 MG TAB PO ONE; -MIDAZOLAM 2 MG/2 ML VIAL IV PRN; -ONDANSETRON 4 MG/2 ML VIAL IVP ONE; -SCOPOLAMINE 1.5MG/72HR PATCH TRANSDERM STA; -ceFAZolin 3 GM in SODIUM CHLORIDE 0.9% 100 ML IVPB PRN
[2020-07-11 07:44] LABS: Glucose,Whole Blood 137 mg/dL (75-99)
[2020-07-11 07:48] VITALS: TEMP 97.6
--- NOTE | 2020-07-11 07:57 | P.GSHP ---
History of Present Illness H&P Date: 07/11/20 CHIEF COMPLAINT: GERD and colon screen HISTORY OF PRESENT ILLNESS: The patient is a 50-year-old female who presents with gastroesophageal reflux disease and need for colon screen. Upper and lower endoscopy were offered for further evaluation and management. PAST MEDICAL HISTORY: Please see list. PAST SURGICAL HISTORY: Please see list. MEDICATIONS: Please see list. ALLERGIES: Please see list. SOCIAL HISTORY: No illicit drug use FAMILY HISTORY: No reports of Crohn disease or ulcerative colitis. REVIEW OF ORGAN SYSTEMS: CONSTITUTIONAL: No reports of fevers or chills. GI: Denies any blood in stools or constipation. PHYSICAL EXAM: VITAL SIGNS: Stable GENERAL: Well-developed pleasant in no acute distress. HEENT: No scleral icterus. Extraocular movements grossly intact. Moist buccal mucosa. NECK: Supple without lymphadenopathy. CHEST: Unlabored respirations. Equal bilateral excursions. CARDIOVASCULAR: Regular rate and rhythm. Distal 2+ pulses. ABDOMEN: Soft, nondistended. MUSCULOSKELETAL: No clubbing, cyanosis, or edema. ASSESSMENT: 1. Gastroesophageal reflux disease 2. Colon screen. PLAN: 1. Recommend proceeding with an upper and lower endoscopy Past Medical History Past Medical History: Diabetes Mellitus, GERD/Reflux, Hyperlipidemia Additional Past Medical History / Comment(s): hx ventral hernia, frequent uti's,twisted small bowel History of Any Multi-Drug Resistant Organisms: None Reported Past Surgical History: Bowel Resection, Section, Cholecystectomy, Hernia Repair, Hysterectomy, Joint Replacement, Orthopedic Surgery Additional Past Surgical History / Comment(s): bilat knees replaced,thymus gland,ventral hernia repair w/ mesh Past Anesthesia/Blood Transfusion Reactions: No Reported Reaction Additional Past Anesthesia/Blood Transfusion Reaction / Comment(s): no problems with prior blood transfusion in 1994 Smoking Status: Never smoker - Past Family History Mother Family Medical History: Cancer Additional Family Medical History / Comment(s): lung Father Family Medical History: Myocardial Infarction ([place]) Medications and Allergies Home Medications Medication Instructions Recorded Confirmed Type Omeprazole [PriLOSEC] 20 mg PO QAM 01/12/19 07/10/20 History Aspirin [Adult Low Dose Aspirin EC] 81 mg PO DAILY 11/10/19 07/10/20 History Atorvastatin [Lipitor] 80 mg PO DAILY 11/10/19 07/10/20 History Fenofibrate 160 mg PO DAILY 11/10/19 07/10/20 History Levothyroxine Sodium [Synthroid] 150 mcg PO QAM 11/10/19 07/10/20 History Ondansetron [Zofran] 4 mg PO Q6H PRN 11/10/19 07/11/20 History oxyCODONE HCL/ACETAMINOPHEN 1 tab PO TID PRN 11/10/19 07/10/20 History [Percocet 7.5-325 mg] Ibuprofen [Motrin] 800 mg PO TID PRN 11/11/19 07/11/20 History traZODone HCL 100 mg PO HS 02/22/20 07/10/20 History Divalproex ER [Depakote ER] 500 mg PO BID 05/14/20 07/10/20 History Ergocalciferol [Vitamin D2 50,000 unit PO Q30D 05/14/20 07/10/20 History (DRISDOL)] Furosemide [Lasix] 40 mg PO DAILY PRN 05/14/20 07/11/20 History Insulin Glargine,Hum.rec.anlog 70 unit SQ HS 05/14/20 07/10/20 History [Lantus Solostar] Lumateperone Tosylate [Caplyta] 42 mg PO HS 05/14/20 07/10/20 History Nystatin 100,000 Unit/gm Powd 1 applic TOPICAL BID PRN 05/14/20 07/11/20 History [Mycostatin Powder] metFORMIN HCL [Glucophage] 1,000 mg PO BID 05/14/20 07/10/20 History Acetaminophen Tab [Tylenol Tab] 1,000 mg PO Q6HR PRN #30 tablet 05/16/20 07/11/20 Rx Cyclobenzaprine [Flexeril] 10 mg PO TID #30 tab 05/16/20 07/10/20 Rx Cyclobenzaprine [Flexeril] 10 mg PO TID PRN 07/10/20 07/10/20 History Insulin Aspart [NovoLOG] 10 units SQ TID-W/MEALS 07/10/20 07/10/20 History PARoxetine HCL [Paxil] 20 mg PO QAM 07/10/20 07/10/20 History Allergies Allergy/AdvReac Type Severity Reaction Status Date / Time cephalexin [From Keflex] Allergy Rash/Hives Verified 07/11/20 07:18 propoxyphene Allergy Rash/Hives Verified 07/11/20 07:18 [From Joseph-Marquise] Surgical - Exam Vital Signs Temp Pulse Resp BP Pulse Ox 97.6 F 106 H 18 150/83 97 07/11/20 07:15 07/11/20 07:15 07/11/20 07:15 07/11/20 07:15 07/11/20 07:15 Results - Labs Abnormal Lab Results - Last 24 Hours (Table) 07/11/20 Range/Units 07:40 POC Glucose (mg/dL) 137 H (75-99) mg/dL
[2020-07-11] MEDS ORDERED: LIDOCAINE 1% INJ 10MG/ML (20 ML MDV) ONE (08:14)
[2020-07-11] MEDS ORDERED: PROPOFOL 10 MG/ML 20 ML VIAL IV ONE (08:14)
[2020-07-11] MEDS ORDERED: MIDAZOLAM 2 MG/2 ML VIAL ONE (08:14)
[2020-07-11] MEDS ORDERED: fentaNYL (PF) 50 MCG/ML 2 ML AMP ONE (08:14)
[2020-07-11] MEDS ORDERED: KETAMINE 10 MG/ML 20 ML VIAL ONE (08:14)
--- NOTE | 2020-07-11 08:27 | P.PCN ---
Date of Procedure: 07/11/20 Description of Procedure: PREOPERATIVE DIAGNOSIS: Gastroesophageal reflux disease. Morbid obesity. Abdominal pain, epigastric POSTOPERATIVE DIAGNOSIS Gastritis. Gastric polyps Gastroesophageal reflux disease. Abdominal pain, epigastric Morbid obesity. OPERATION: Esophagogastroduodenoscopy with biopsies along antrum. SURGEON: Yarelis Hernandes MD ANESTHESIA: MAC. INDICATIONS: The patient is a 50-year-old female who presents with a history of reflux disease. Benefits and risks of the procedure were described. Informed consent was obtained. DESCRIPTION: The patient was brought into the endoscopy suite and laid in the left lateral decubitus position. An Olympus gastroscope was passed along the posterior oropharynx down to the distal esophagus where the squamocolumnar junction was encountered at 36 cm from the incisors. The stomach was entered and no bile reflux was found. Additional findings are listed below. Biopsies with cold forceps were obtained of the antrum. The first through third portion of the duodenum was examined and unremarkable. Retroflexion of the scope confirmed Hill grade 1 lower esophageal valve. The squamocolumnar junction demonstrated LA grade A erosive esophagitis. The stomach was desufflated. The patient tolerated the procedure well. FINDINGS: Squamocolumnar junction 36 cm from the incisors. Diaphragmatic hiatus at 36 cm. Hill grade 1 lower esophageal valve. LA grade A erosive esophagitis. No active duodenitis. Chronic gastritis Gastric polyps along gastric cardia and pylorus RECOMMENDATIONS: Upper endoscopy as needed.
--- NOTE | 2020-07-11 08:45 | P.PCN ---
Date of Procedure: 07/11/20 Description of Procedure: PREOPERATIVE DIAGNOSIS: Family history colon polyps, sister Colonoscopy screening, high risk POSTOPERATIVE DIAGNOSIS: Family history colon polyps, sister Colonoscopy screening, high risk OPERATION: Colonoscopy to the cecum, ileocecal valve SURGEON: Yarelis Hernandes MD. ANESTHESIA: MAC. INDICATIONS: The patient is a 50-year-old female who presents for c her first olonoscopy screening. Benefits and risks were described and informed consent was obtained. DESCRIPTION OF PROCEDURE: The patient had undergone Suprep. The had been brought into the operating room and laid in the left lateral decubitus position. After adequate intravenous sedation, the rectum was examined with 2% lidocaine jelly. No external hemorrhoids were encountered. The rectal tone was within normal limits. No lesions were palpated in the rectal vault. An Olympus colonoscope was advanced until the cecum, ileocecal valve and appendiceal orifice were clearly viewed. The prep was fair. No large scattered diverticulosis was encountered. No large colonic polyps were found. No evidence of focal colitis was found. Retroflexion of the scope demonstrated grade 1 internal hemorrhoids without active bleeding or inflammation. The colon was desufflated. The patient had tolerated the procedure well. Withdrawal time was over 6 minutes. FINDINGS: Aronchick preparation quality scale 3 (1-5) Internal hemorrhoids, grade 1 No external prolapsed hemorrhoids. No arteriovenous malformations. No adenomatous polyps. No focal colitis. Poor prep limiting complete assessment of mucosa RECOMMENDATIONS: Lower endoscopy in 5 years, 2025 Plan - Discharge Summary Discharge Rx Participant: No New Discharge Prescriptions: Continue Omeprazole [PriLOSEC] 20 mg PO QAM Atorvastatin [Lipitor] 80 mg PO DAILY Levothyroxine Sodium [Synthroid] 150 mcg PO QAM Aspirin [Adult Low Dose Aspirin EC] 81 mg PO DAILY Fenofibrate 160 mg PO DAILY Ondansetron [Zofran] 4 mg PO Q6H PRN PRN Reason: Nausea oxyCODONE HCL/ACETAMINOPHEN [Percocet 7.5-325 mg] 1 tab PO TID PRN PRN Reason: Pain Ibuprofen [Motrin] 800 mg PO TID PRN PRN Reason: Pain traZODone HCL 100 mg PO HS Nystatin 100,000 Unit/gm Powd [Mycostatin Powder] 1 applic TOPICAL BID PRN PRN Reason: abdominal fold Ergocalciferol [Vitamin D2 (DRISDOL)] 50,000 unit PO Q30D Insulin Glargine,Hum.rec.anlog [Lantus Solostar] 70 unit SQ HS Furosemide [Lasix] 40 mg PO DAILY PRN PRN Reason: feet swelling Lumateperone Tosylate [Caplyta] 42 mg PO HS metFORMIN HCL [Glucophage] 1,000 mg PO BID Divalproex ER [Depakote ER] 500 mg PO BID Cyclobenzaprine [Flexeril] 10 mg PO TID #30 tab Acetaminophen Tab [Tylenol] 1,000 mg PO Q6HR PRN #30 tablet PRN Reason: Pain PARoxetine HCL [Paxil] 20 mg PO QAM Cyclobenzaprine [Flexeril] 10 mg PO TID PRN PRN Reason: Pain Insulin Aspart [NovoLOG] 10 units SQ TID-W/MEALS Discharge Medication List Omeprazole [PriLOSEC] 20 mg PO QAM 01/12/19 [History] Aspirin [Adult Low Dose Aspirin EC] 81 mg PO DAILY 11/10/19 [History] Atorvastatin [Lipitor] 80 mg PO DAILY 11/10/19 [History] Fenofibrate 160 mg PO DAILY 11/10/19 [History] Levothyroxine Sodium [Synthroid] 150 mcg PO QAM 11/10/19 [History] Ondansetron [Zofran] 4 mg PO Q6H PRN 11/10/19 [History] oxyCODONE HCL/ACETAMINOPHEN [Percocet 7.5-325 mg] 1 tab PO TID PRN 11/10/19 [History] Ibuprofen [Motrin] 800 mg PO TID PRN 11/11/19 [History] traZODone HCL 100 mg PO HS 02/22/20 [History] Divalproex ER [Depakote ER] 500 mg PO BID 05/14/20 [History] Ergocalciferol [Vitamin D2 (DRISDOL)] 50,000 unit PO Q30D 05/14/20 [History] Furosemide [Lasix] 40 mg PO DAILY PRN 05/14/20 [History] Insulin Glargine,Hum.rec.anlog [Lantus Solostar] 70 unit SQ HS 05/14/20 [History] Lumateperone Tosylate [Caplyta] 42 mg PO HS 05/14/20 [History] Nystatin 100,000 Unit/gm Powd [Mycostatin Powder] 1 applic TOPICAL BID PRN 05/14/20 [History] metFORMIN HCL [Glucophage] 1,000 mg PO BID 05/14/20 [History] Acetaminophen Tab [Tylenol] 1,000 mg PO Q6HR PRN #30 tablet 05/16/20 [Rx] Cyclobenzaprine [Flexeril] 10 mg PO TID #30 tab 05/16/20 [Rx] Cyclobenzaprine [Flexeril] 10 mg PO TID PRN 07/10/20 [History] Insulin Aspart [NovoLOG] 10 units SQ TID-W/MEALS 07/10/20 [History] PARoxetine HCL [Paxil] 20 mg PO QAM 07/10/20 [History] Follow up Appointment(s)/Referral(s): Yarelis Hernandes MD [STAFF PHYSICIAN] - 07/23/20 Patient Instructions/Handouts: *[facility] - (Anesthesia) Endoscopy Discharge Instructions Activity/Diet/Wound Care/Special Instructions: Repeat colonoscopy 5 years, 2025 Discharge Disposition: HOME SELF-CARE
[2020-07-11 08:48] VITALS: RESP 16
[2020-07-11 09:33] VITALS: BP 133/74; PULSE 77
== END 2020-07-11 09:35 | disposition home or self-care (01) ==
LOC: ORWHC2ENDO 06:52
PROVIDERS: ATTEND Surgery Plastic and Reconstructive Surgery
DX: Z12.11 Encounter for screening for malignant neoplasm of colon (principal); K64.0 First degree hemorrhoids; K29.50 Unspecified chronic gastritis without bleeding; K31.7 Polyp of stomach and duodenum; K21.00 Gastro-esophageal reflux disease with esophagitis, without bleeding; K22.10 Ulcer of esophagus without bleeding; E66.01 Morbid (severe) obesity due to excess calories; Z83.71 Family history of colonic polyps; E11.9 Type 2 diabetes mellitus without complications; E78.5 Hyperlipidemia, unspecified; Z68.41 Body mass index [BMI] 40.0-44.9, adult; Z88.1 Allergy status to other antibiotic agents; Z87.19 Personal history of other diseases of the digestive system; Z87.440 Personal history of urinary (tract) infections; Z90.49 Acquired absence of other specified parts of digestive tract; Z98.890 Other specified postprocedural states; Z90.710 Acquired absence of both cervix and uterus; Z96.653 Presence of artificial knee joint, bilateral; Z79.899 Other long term (current) drug therapy; Z79.82 Long term (current) use of aspirin; Z79.890 Hormone replacement therapy; Z79.4 Long term (current) use of insulin; Z88.5 Allergy status to narcotic agent; Z80.1 Family history of malignant neoplasm of trachea, bronchus and lung; Z82.49 Family history of ischemic heart disease and other diseases of the circulatory system
CPT/HCPCS: 43239; 88305; 88342; G0105; J2250; J2001; J3010; J2704

== ENCOUNTER → 2020-08-20 | Outpatient (CLI) | payer OTHER ==
[2020-08-21 01:34] LABS: HCT 40.7 % (37.2-46.3); MCH 30.2 pg (27.0-32.0); MCHC 31.9 g/dL (32.0-37.0); MCV 94.4 fL (80.0-97.0); Mean Platelet Volume 11.7 fL (9.5-12.2); Platelet Count 316 X 10*3/uL (140-440); RBC 4.31 X 10*6/uL (4.10-5.20); RDW 12.5 % (11.5-14.5); WBC 8.18 X 10*3/uL (4.50-10.00)
== END | disposition home or self-care (01) ==
LOC: LABWHC1 15:01
PROVIDERS: ATTEND Surgery Plastic and Reconstructive Surgery
DX: Z01.818 Encounter for other preprocedural examination (principal); R19.7 Diarrhea, unspecified
CPT/HCPCS: 36415; 84132; 85027

== ENCOUNTER 2020-08-22 06:42 | Day surgery (SDC) | payer OTHER ==
[2020-08-20 12:18] VITALS: BMI 46.0
[~2020-08-22 06:42] MED LIST changes: +CLINDAMYCIN 900 MG in DEXTROSE 5% IN WATER 50 ML IVPB PRN; +DEXAMETHASONE SOD PHOSPHATE 4 MG/ML 1 ML VIAL IV ONE; +HYDROmorphone 0.5 MG/0.5 ML SYRINGE IVP PRN; +LIDOCAINE 1% (10MG/ML) FOR IV START INTRADERMA PRN; +MIDAZOLAM 2 MG/2 ML VIAL IV PRN; +ONDANSETRON 4 MG/2 ML VIAL IVP ONE; +fentaNYL (PF) 50 MCG/ML 2 ML AMP IVP PRN
[2020-08-22 07:44] VITALS: RESP 20
[2020-08-22 08:01] LABS: Glucose,Whole Blood 150 mg/dL (75-99)
[2020-08-22] MEDS ORDERED: HEPARIN SODIUM,PORCINE 5,000 UNIT/ML 1 ML VIAL SQ STA (08:19)
--- NOTE | 2020-08-22 08:24 | P.GSHP ---
History of Present Illness H&P Date: 08/22/20 CHIEF COMPLAINT: History of intra-abdominal adhesions HISTORY OF PRESENT ILLNESS: The patient is a 48-year-old female who presents with history of intra-abdominal adhesions from multiple prior surgeries including increasing abdominal pain. She now presents for diagnostic laparoscopy including lysis of adhesions. PAST MEDICAL HISTORY: Please see list. PAST SURGICAL HISTORY: Please see list. MEDICATIONS: Please see list. ALLERGIES: Please see list. SOCIAL HISTORY: No illicit drug use FAMILY HISTORY: No reports of Crohn disease or ulcerative colitis. REVIEW OF ORGAN SYSTEMS: CONSTITUTIONAL: No reports of fevers or chills. GI: Denies any blood in stools or constipation. PHYSICAL EXAM: VITAL SIGNS: Stable GENERAL: Well-developed pleasant and in no acute distress. HEENT: No scleral icterus. Extraocular movements grossly intact. Moist buccal mucosa. NECK: Supple without lymphadenopathy. CHEST: Unlabored respirations. Equal bilateral excursions. CARDIOVASCULAR: Regular rate and rhythm. Distal 2+ pulses. ABDOMEN: Soft, diffuse abdominal tenderness. No peritonitis. MUSCULOSKELETAL: No clubbing, cyanosis, or edema. ASSESSMENT: 1. Diffuse abdominal pain. 2. History of multiple abdominal surgeries. 3. Intra-abdominal adhesions. PLAN: 1. Robotic lysis of adhesions were described in detail including risk of injury to the intestine, need for further surgery, and open technique. 2. DVT prophylaxis. 3. Antibiotic prophylaxis. Past Medical History Past Medical History: Diabetes Mellitus, GERD/Reflux, Hyperlipidemia Additional Past Medical History / Comment(s): hx ventral hernia, frequent uti's,twisted small bowel History of Any Multi-Drug Resistant Organisms: None Reported Past Surgical History: Bowel Resection, Section, Cholecystectomy, Hernia Repair, Hysterectomy, Joint Replacement, Orthopedic Surgery Additional Past Surgical History / Comment(s): bilat knees replaced,. thymus gland,. ventral hernia repair w/ mesh. COLONOSCOPY/EGD Past Anesthesia/Blood Transfusion Reactions: No Reported Reaction Additional Past Anesthesia/Blood Transfusion Reaction / Comment(s): no problems with prior blood transfusion in 1994 Smoking Status: Never smoker - Past Family History Mother Family Medical History: Cancer Additional Family Medical History / Comment(s): lung Father Family Medical History: Myocardial Infarction ([place]) Medications and Allergies Home Medications Medication Instructions Recorded Confirmed Type Omeprazole [PriLOSEC] 20 mg PO QAM 01/12/19 08/20/20 History Aspirin [Adult Low Dose Aspirin EC] 81 mg PO DAILY 11/10/19 08/20/20 History Atorvastatin [Lipitor] 80 mg PO DAILY 11/10/19 08/20/20 History Fenofibrate 160 mg PO DAILY 11/10/19 08/20/20 History Levothyroxine Sodium [Synthroid] 150 mcg PO QAM 11/10/19 08/20/20 History Ondansetron [Zofran] 4 mg PO Q6H PRN 11/10/19 08/20/20 History oxyCODONE HCL/ACETAMINOPHEN 1 tab PO TID PRN 11/10/19 08/22/20 History [Percocet 7.5-325 mg] Ibuprofen [Motrin] 800 mg PO TID PRN 11/11/19 08/20/20 History traZODone HCL 100 mg PO HS 02/22/20 08/22/20 History Divalproex ER [Depakote ER] 500 mg PO BID 05/14/20 08/20/20 History Ergocalciferol [Vitamin D2 50,000 unit PO Q30D 05/14/20 08/20/20 History (DRISDOL)] Furosemide [Lasix] 40 mg PO DAILY PRN 05/14/20 08/20/20 History Insulin Glargine,Hum.rec.anlog 70 unit SQ HS 05/14/20 08/20/20 History [Lantus Solostar] Lumateperone Tosylate [Caplyta] 42 mg PO HS 05/14/20 08/20/20 History Nystatin 100,000 Unit/gm Powd 1 applic TOPICAL BID PRN 05/14/20 08/20/20 History [Mycostatin Powder] metFORMIN HCL [Glucophage] 1,000 mg PO BID 05/14/20 08/22/20 History Acetaminophen Tab [Tylenol] 1,000 mg PO Q6HR PRN #30 tablet 05/16/20 08/20/20 Rx Cyclobenzaprine [Flexeril] 10 mg PO TID PRN 07/10/20 08/20/20 History Insulin Aspart [NovoLOG] 10 units SQ TID-W/MEALS 07/10/20 08/20/20 History PARoxetine HCL [Paxil] 20 mg PO QAM 07/10/20 08/20/20 History Allergies Allergy/AdvReac Type Severity Reaction Status Date / Time cephalexin [From Keflex] Allergy Rash/Hives Verified 08/22/20 07:46 propoxyphene Allergy Rash/Hives Verified 08/22/20 07:46 [From Darvocet-N] Surgical - Exam Vital Signs Temp Pulse Resp BP Pulse Ox 97.2 F L 95 20 118/66 99 08/22/20 07:42 08/22/20 07:42 08/22/20 07:42 08/22/20 07:42 08/22/20 07:42 Results - Labs Abnormal Lab Results - Last 24 Hours (Table) 08/22/20 Range/Units 07:58 POC Glucose (mg/dL) 150 H (75-99) mg/dL
[2020-08-22] MEDS ORDERED: GLYCOPYRROLATE 0.2 MG/ML 2 ML VIAL ONE (09:06)
[2020-08-22] MEDS ORDERED: fentaNYL (PF) 50 MCG/ML 2 ML AMP ONE (09:06)
[2020-08-22] MEDS ORDERED: LIDOCAINE 1% INJ 10MG/ML (20 ML MDV) ONE (09:06)
[2020-08-22] MEDS ORDERED: ROCURONIUM 10 MG/ML (5 ML VIAL) IV ONE (09:06)
[2020-08-22] MEDS ORDERED: PROPOFOL 10 MG/ML 20 ML VIAL IV ONE (09:06)
[2020-08-22] MEDS ORDERED: SUCCINYLCHOLINE CHLORIDE 100 MG/5 ML SYR IV ONE (09:06)
[2020-08-22] MEDS ORDERED: NEOSTIGMINE 1 MG/ML 10 ML VIAL ONE (09:06)
[2020-08-22] MEDS ORDERED: LIDOCAINE 1%-EPI 1:100,000 20 ML VIAL SQ ONE (09:38)
[2020-08-22] MEDS ORDERED: LACTATED RINGERS 1,000 ML IV ONE (10:26)
[2020-08-22 10:57] VITALS: TEMP 97
[2020-08-22] MEDS ORDERED: ONDANSETRON 4 MG/2 ML VIAL IVP ONE (11:35)
[2020-08-22] MEDS ORDERED: KETOROLAC 15 MG/ML 1 ML VIAL ONE (12:36)
[2020-08-22] MEDS ORDERED: KETOROLAC 15 MG/ML 1 ML VIAL IVP ONE (12:37)
[2020-08-22 12:59] VITALS: BP 121/76; PULSE 101
--- NOTE | 2020-08-22 18:10 | P.OP ---
Date of Procedure: 08/22/20 Description of Procedure: SURGEON: YARELIS HERNANDES MD DISH CLOTH INSPECTOR: None. PREOPERATIVE DIAGNOSES: 1. Lower abdominal pain with peritoneal adhesions 2. Morbid obesity due to excess calories, BMI 47.2 3. History multiple abdominal surgeries 4. Diabetes type 2, insulin-dependent 5. Generalized anxiety disorder 6. Schizoaffective disorder 7. Depressive disorder 8. Chronic pain syndrome 9. Gastroesophageal reflux disease 10. Hypertensive heart disease 11. Hypothyroidism 12. Hyperlipidemia 13. Panic disorder POSTOPERATIVE DIAGNOSES: 1. Lower abdominal pain due to severe peritoneal adhesions from omentum, small bowel to abdominal wall 2. Morbid obesity due to excess calories, BMI 47.2 3. History multiple abdominal surgeries 4. Diabetes type 2, insulin-dependent 5. Generalized anxiety disorder 6. Schizoaffective disorder 7. Depressive disorder 8. Chronic pain syndrome 9. Gastroesophageal reflux disease 10. Hypertensive heart disease 11. Hypothyroidism 12. Hyperlipidemia 13. Panic disorder 15. S OPERATION: 1. Robotic-assisted daVinci Xi laparoscopic extensive lysis of adhesions over 1 hour ANESTHESIA: General with local ESTIMATED BLOOD LOSS: 5 mL. SPECIMENS: None. COMPLICATIONS: None. Operative Findings: 1. Severe intra-abdominal adhesions lower abdomen, greater omentum including small bowel to the abdominal wall requiring over 1 hour extensive lysis of adhesions with vessel sealer and scissors with bouvie cautery 2. No recurrent lower midline incisional hernia 3. Severe right upper quadrant abdominal adhesions with incarcerated incisional hernia due to previous open cholecystectomy INDICATIONS: The patient is a 50-year-old female who presents chronic abdominal pain due to adhesions Surgical intervention with laparoscopic versus robotic and open techniques were reviewed. Placement of mesh was also reviewed. Benefits and risks were thoroughly described. Informed consent was obtained. DESCRIPTION OF PROCEDURE: The patient was brought into the operating room and laid in supine position. After general induction, the abdomen had been prepped and draped in standard sterile fashion. Ioban draping was also placed. Prior to incision, a timeout protocol was confirmed with surgical team regarding the patient's name including procedures to be performed. The robot was primed prior to the procedure. A field block using local anesthetic was placed along hernia site including the proposed port sites. Initial incision was made with an #11 blade along the left upper quadrant. A 0 degree 5 mm laparoscopic trocar entry was performed. Diagnostic laparoscopy demonstrated severe peritoneal adhesions along the right upper quadrant including lower abdomen. Peritoneal adhesions of small bowel to the abdominal wall along the lower midline was identified. Two 8 mm trocars were placed along the left upper abdominal wall. The 5-mm port was exchanged for an 8 mm laparoscopic port. Placements of the ports were 20 cm from the target anatomy and 10 cm apart. The da Black XI robot was previously primed, prepped and draped then docked along the right side of the patient. I sat at the robot Da Black XI console where working arms of the robot including Bovie cautery connected to robotic scissors, vessel sealer and graspers were placed by the records assistant. Greater omental adhesions to abdominal wall including small bowel adhesions were addressed with scissors and vessel sealer including blunt dissection. Extensive lysis of adhesions occurred over 1 hour. The sigmoid colon was adherent to the left lower quadrant abdominal wall which was gently dissected free without colotomy. Adhesions along previous mesh was completely dissected free using a combination of blunt dissection as well as vessel sealer. No recurrent incisional hernias from her recent surgery was identified. Hemostasis was checked and the abdomen was dry. A final endoscopic imaging was obtained. All instruments and pneumoperitoneum were evacuated from the abdominal cavity. The da Black XI robot was undocked from the patient. I re-scrubbed into the case for closure of incisions. The incisions were reapproximated using 4-0 Monocryl in an interrupted subcuticular fashion. Liquid glue was applied to the skin. At the end of the procedure, needle, sponge, and instrument count had been verified correct by certified surgical tech/first assistant. The patient was taken to the postanesthesia care unit in stable condition. Plan - Discharge Summary Discharge Rx Participant: Yes New Discharge Prescriptions: New Acetaminophen Tab [Tylenol Tab] 1,000 mg PO Q6HR PRN #30 tablet PRN Reason: Pain Ibuprofen 800 mg PO Q8HR PRN #30 tablet PRN Reason: Pain Continue Omeprazole [PriLOSEC] 20 mg PO QAM Atorvastatin [Lipitor] 80 mg PO DAILY Levothyroxine Sodium [Synthroid] 150 mcg PO QAM Aspirin [Adult Low Dose Aspirin EC] 81 mg PO DAILY Fenofibrate 160 mg PO DAILY Ondansetron [Zofran] 4 mg PO Q6H PRN PRN Reason: Nausea oxyCODONE HCL/ACETAMINOPHEN [Percocet 7.5-325 mg] 1 tab PO TID PRN PRN Reason: Pain Ibuprofen [Motrin] 800 mg PO TID PRN PRN Reason: Pain traZODone HCL 100 mg PO HS Nystatin 100,000 Unit/gm Powd [Mycostatin Powder] 1 applic TOPICAL BID PRN PRN Reason: abdominal fold Ergocalciferol [Vitamin D2 (DRISDOL)] 50,000 unit PO Q30D Insulin Glargine,Hum.rec.anlog [Lantus Solostar] 70 unit SQ HS Furosemide [Lasix] 40 mg PO DAILY Lumateperone Tosylate [Caplyta] 42 mg PO HS metFORMIN HCL [Glucophage] 1,000 mg PO BID Divalproex ER [Depakote ER] 500 mg PO BID Acetaminophen Tab [Tylenol] 1,000 mg PO Q6HR PRN #30 tablet PRN Reason: Pain PARoxetine HCL [Paxil] 20 mg PO QAM Cyclobenzaprine [Flexeril] 10 mg PO TID PRN PRN Reason: Pain Insulin Aspart [NovoLOG] 10 units SQ TID-W/MEALS Discharge Medication List Omeprazole [PriLOSEC] 20 mg PO QAM 01/12/19 [History] Aspirin [Adult Low Dose Aspirin EC] 81 mg PO DAILY 11/10/19 [History] Atorvastatin [Lipitor] 80 mg PO DAILY 11/10/19 [History] Fenofibrate 160 mg PO DAILY 11/10/19 [History] Levothyroxine Sodium [Synthroid] 150 mcg PO QAM 11/10/19 [History] Ondansetron [Zofran] 4 mg PO Q6H PRN 11/10/19 [History] oxyCODONE HCL/ACETAMINOPHEN [Percocet 7.5-325 mg] 1 tab PO TID PRN 11/10/19 [History] Ibuprofen [Motrin] 800 mg PO TID PRN 11/11/19 [History] traZODone HCL 100 mg PO HS 02/22/20 [History] Divalproex ER [Depakote ER] 500 mg PO BID 05/14/20 [History] Ergocalciferol [Vitamin D2 (DRISDOL)] 50,000 unit PO Q30D 05/14/20 [History] Furosemide [Lasix] 40 mg PO DAILY 05/14/20 [History] Insulin Glargine,Hum.rec.anlog [Lantus Solostar] 70 unit SQ HS 05/14/20 [History] Lumateperone Tosylate [Caplyta] 42 mg PO HS 05/14/20 [History] Nystatin 100,000 Unit/gm Powd [Mycostatin Powder] 1 applic TOPICAL BID PRN 05/14/20 [History] metFORMIN HCL [Glucophage] 1,000 mg PO BID 05/14/20 [History] Acetaminophen Tab [Tylenol] 1,000 mg PO Q6HR PRN #30 tablet 05/16/20 [Rx] Cyclobenzaprine [Flexeril] 10 mg PO TID PRN 07/10/20 [History] Insulin Aspart [NovoLOG] 10 units SQ TID-W/MEALS 07/10/20 [History] PARoxetine HCL [Paxil] 20 mg PO QAM 07/10/20 [History] Acetaminophen Tab [Tylenol Tab] 1,000 mg PO Q6HR PRN #30 tablet 08/22/20 [Rx] Ibuprofen 800 mg PO Q8HR PRN #30 tablet 08/22/20 [Rx] Follow up Appointment(s)/Referral(s): Yarelis Hernandes MD [STAFF PHYSICIAN] - 08/27/20 Patient Instructions/Handouts: *[facility] - (Anesthesia) Discharge Instructions Outpatient Surgery, Lysis of Abdominal Adhesions (IP) Activity/Diet/Wound Care/Special Instructions: Using antibacterial soap. No lifting over 10 pounds 2 weeks, September 05September shower. No bathtub soaks for 2 weeks, September 05 Use ice along incisions for today to prevent swelling. Use Tylenol and ibuprofen or Aleve scheduled for the next 24-48 hours for best pain relief. Discharge Disposition: HOME SELF-CARE
== END 2020-08-22 13:12 | disposition home or self-care (01) ==
LOC: OR 06:42
PROVIDERS: ATTEND Surgery Plastic and Reconstructive Surgery
DX: K66.0 Peritoneal adhesions (postprocedural) (postinfection) (principal); E11.9 Type 2 diabetes mellitus without complications; K21.9 Gastro-esophageal reflux disease without esophagitis; E78.5 Hyperlipidemia, unspecified; E66.01 Morbid (severe) obesity due to excess calories; Z68.42 Body mass index [BMI] 45.0-49.9, adult; F41.1 Generalized anxiety disorder; F25.9 Schizoaffective disorder, unspecified; F32.9 Major depressive disorder, single episode, unspecified; I11.9 Hypertensive heart disease without heart failure; G89.4 Chronic pain syndrome; E03.9 Hypothyroidism, unspecified; F41.0 Panic disorder [episodic paroxysmal anxiety]; Z87.440 Personal history of urinary (tract) infections; Z87.19 Personal history of other diseases of the digestive system; Z90.49 Acquired absence of other specified parts of digestive tract; Z98.891 History of uterine scar from previous surgery; Z90.710 Acquired absence of both cervix and uterus; Z96.653 Presence of artificial knee joint, bilateral; Z98.890 Other specified postprocedural states; Z80.1 Family history of malignant neoplasm of trachea, bronchus and lung; Z82.49 Family history of ischemic heart disease and other diseases of the circulatory system; Z79.82 Long term (current) use of aspirin; Z79.890 Hormone replacement therapy; Z79.891 Long term (current) use of opiate analgesic; Z79.4 Long term (current) use of insulin; Z79.899 Other long term (current) drug therapy; Z88.1 Allergy status to other antibiotic agents; Z88.5 Allergy status to narcotic agent
CPT/HCPCS: 44180; J2250; J1644; J1100; J2710; J2405; J2001; J3010; J1885; J0330; J2704; J1170

== ENCOUNTER 2020-12-11 13:40 | Inpatient (IN) | payer OTHER ==
--- NOTE | 2020-12-11 13:58 | ED ---
Recheck HPI - General Chief Complaint: Recheck/Abnormal Lab/Rx Stated Complaint: low potassium Time Seen by Provider: 12/11/20 13:46 Source: patient, RN notes reviewed Mode of arrival: ambulatory Limitations: no limitations - History of Present Illness Initial Comments: This a 50-year-old female presents emergency Department with chief complaint of low potassium. Patient states that she was started on a second diuretic over the last week states that she has not felt well she's had 2 days of decreased appetite, nausea vomiting. Patient states she has a known diabetic. Patient is on metformin, Lantus, Lasix along with a second diuretic. Patient denies fevers chills no chest pain no palpitations she states she just feels weak, fatigued currently. - Related Data Home Medications Medication Instructions Recorded Confirmed Omeprazole [PriLOSEC] 20 mg PO QAM 01/12/19 08/22/20 Aspirin [Adult Low Dose Aspirin EC] 81 mg PO DAILY 11/10/19 08/22/20 Atorvastatin [Lipitor] 80 mg PO DAILY 11/10/19 08/22/20 Fenofibrate 160 mg PO DAILY 11/10/19 08/22/20 Levothyroxine Sodium [Synthroid] 150 mcg PO QAM 11/10/19 08/22/20 Ondansetron [Zofran] 4 mg PO Q6H PRN 11/10/19 08/22/20 oxyCODONE HCL/ACETAMINOPHEN 1 tab PO TID PRN 11/10/19 08/22/20 [Percocet 7.5-325 mg] Ibuprofen [Motrin] 800 mg PO TID PRN 11/11/19 08/22/20 traZODone HCL 100 mg PO HS 02/22/20 08/22/20 Divalproex ER [Depakote ER] 500 mg PO BID 05/14/20 08/22/20 Ergocalciferol [Vitamin D2 50,000 unit PO Q30D 05/14/20 08/22/20 (DRISDOL)] Furosemide [Lasix] 40 mg PO DAILY 05/14/20 08/22/20 Insulin Glargine,Hum.rec.anlog 70 unit SQ HS 05/14/20 08/22/20 [Lantus Solostar] Lumateperone Tosylate [Caplyta] 42 mg PO HS 05/14/20 08/22/20 Nystatin 100,000 Unit/gm Powd 1 applic TOPICAL BID PRN 05/14/20 08/22/20 [Mycostatin Powder] metFORMIN HCL [Glucophage] 1,000 mg PO BID 05/14/20 08/22/20 Cyclobenzaprine [Flexeril] 10 mg PO TID PRN 07/10/20 08/22/20 Insulin Aspart [NovoLOG] 10 units SQ TID-W/MEALS 07/10/20 08/22/20 PARoxetine HCL [Paxil] 20 mg PO QAM 07/10/20 08/22/20 Previous Rx's Medication Instructions Recorded Acetaminophen Tab [Tylenol] 1,000 mg PO Q6HR PRN #30 tablet 05/16/20 Acetaminophen Tab [Tylenol Tab] 1,000 mg PO Q6HR PRN #30 tablet 08/22/20 Ibuprofen 800 mg PO Q8HR PRN #30 tablet 08/22/20 Allergies Allergy/AdvReac Type Severity Reaction Status Date / Time cephalexin [From Keflex] Allergy Rash/Hives Verified 08/22/20 07:46 propoxyphene Allergy Rash/Hives Verified 08/22/20 07:46 [From Darvocet-N] Review of Systems ROS Statement: Those systems with pertinent positive or pertinent negative responses have been documented in the HPI. ROS Other: All systems not noted in ROS Statement are negative. Past Medical History Past Medical History: Diabetes Mellitus, GERD/Reflux, Hyperlipidemia Additional Past Medical History / Comment(s): hx ventral hernia, frequent uti's ,twisted small bowel History of Any Multi-Drug Resistant Organisms: None Reported Past Surgical History: Bowel Resection, Section, Cholecystectomy, Hernia Repair, Hysterectomy, Joint Replacement, Orthopedic Surgery Additional Past Surgical History / Comment(s): bilat knees replaced,. thymus gland,. ventral hernia repair w/ mesh. COLONOSCOPY/EGD Past Anesthesia/Blood Transfusion Reactions: No Reported Reaction Additional Past Anesthesia/Blood Transfusion Reaction / Comment(s): no problems with prior blood transfusion in 1994 Past Psychological History: Anxiety, Depression, Panic Disorder, Schizoaffective Disorder Smoking Status: Never smoker - Past Family History Mother Family Medical History: Cancer Additional Family Medical History / Comment(s): lung Father Family Medical History: Myocardial Infarction ([place]) General Exam Limitations: no limitations General appearance: alert, in no apparent distress Head exam: Present: atraumatic, normocephalic, normal inspection Respiratory exam: Present: normal lung sounds bilaterally. Absent: respiratory distress, wheezes, rales, rhonchi, stridor Cardiovascular Exam: Present: normal rhythm, tachycardia, normal heart sounds. Absent: systolic murmur, diastolic murmur, rubs, gallop, clicks GI/Abdominal exam: Present: soft, normal bowel sounds. Absent: distended, tenderness, guarding, rebound, rigid Neurological exam: Present: alert Skin exam: Present: warm, dry, intact, normal color. Absent: rash Course Vital Signs 12/11/20 13:40 Temperature 98.2 F Pulse Rate 112 H Respiratory 20 Rate Blood Pressure 130/69 O2 Sat by Pulse 96 Oximetry Medical Decision Making - Medical Decision Making 50-year-old female presents with from for low potassium tetanus was 2.0 patient has mild hyponatremia, dehydration, hyperglycemia. Patient be admitted for replacement. - Lab Data Result diagrams: 12/11/20 14:06 12/11/20 14:06 Lab Results 12/11/20 12/11/20 Range/Units 14:06 14:06 WBC 12.6 H (3.8-10.6) k/uL RBC 5.17 (3.80-5.40) m/uL Hgb 15.6 (11.4-16.0) gm/dL Hct 43.4 (34.0-46.0) % MCV 83.9 (80.0-100.0) fL MCH 30.2 (25.0-35.0) pg MCHC 35.9 (31.0-37.0) g/dL RDW 13.3 (11.5-15.5) % Plt Count 352 (150-450) k/uL MPV 8.9 Neutrophils % 72 % Lymphocytes % 21 % Monocytes % 4 % Eosinophils % 2 % Basophils % 1 % Neutrophils # 9.1 H (1.3-7.7) k/uL Lymphocytes # 2.6 (1.0-4.8) k/uL Monocytes # 0.5 (0-1.0) k/uL Eosinophils # 0.2 (0-0.7) k/uL Basophils # 0.1 (0-0.2) k/uL Sodium 129 L (137-145) mmol/L Potassium 2.0 L* (3.5-5.1) mmol/L Chloride 76 L (98-107) mmol/L Carbon Dioxide 33 H (22-30) mmol/L Anion Gap 20 mmol/L BUN 32 H (7-17) mg/dL Creatinine 1.14 H (0.52-1.04) mg/dL Est GFR (CKD-EPI)AfAm 66 (>60 ml/min/1.73 sqM) Est GFR (CKD-EPI)NonAf 57 (>60 ml/min/1.73 sqM) Glucose 445 H (74-99) mg/dL Calcium 9.8 (8.4-10.2) mg/dL Magnesium 2.3 (1.6-2.3) mg/dL Total Bilirubin 0.8 (0.2-1.3) mg/dL AST 52 H (14-36) U/L ALT 31 (4-34) U/L Alkaline Phosphatase 148 H (38-126) U/L Total Protein 7.7 (6.3-8.2) g/dL Albumin 4.7 (3.5-5.0) g/dL Disposition Clinical Impression: Hypokalemia, Dehydration, Hyponatremia Disposition: ADMITTED IP TO THIS HOSP Condition: Poor Referrals: Ramin Lopes MD [Primary Care Provider] - 1-2 days
[2020-12-11 14:22] LABS: Basophils # (A) 0.1 k/uL (0-0.2); Basophils % (A) 1 %; Eosinophils # (A) 0.2 k/uL (0-0.7); Eosinophils % (A) 2 %; HCT 43.4 % (34.0-46.0); HGB 15.6 gm/dL (11.4-16.0); Lymphocytes # (A) 2.6 k/uL (1.0-4.8); Lymphocytes % (A) 21 %; MCH 30.2 pg (25.0-35.0); MCHC 35.9 g/dL (31.0-37.0); MCV 83.9 fL (80.0-100.0); Mean Platelet Volume 8.9; Monocytes # (A) 0.5 k/uL (0-1.0); Monocytes % (A) 4 %; Neutrophils # (A) 9.1 k/uL (1.3-7.7); Neutrophils % (A) 72 %; Platelet Count 352 k/uL (150-450); RBC 5.17 m/uL (3.80-5.40); RDW 13.3 % (11.5-15.5); WBC 12.6 k/uL (3.8-10.6)
[2020-12-11 14:31] LABS: Albumin 4.7 g/dL (3.5-5.0); Calcium 9.8 mg/dL (8.4-10.2); Magnesium 2.3 mg/dL (1.6-2.3); Total Bilirubin 0.8 mg/dL (0.2-1.3); Total Protein 7.7 g/dL (6.3-8.2)
[2020-12-11] MEDS ORDERED: POTASSIUM CHLORIDE ER 20 MEQ TAB.ER PO STA (14:58)
[2020-12-11] MEDS ORDERED: NALOXONE 0.4 MG/ML 1 ML VIAL IV PRN (15:04)
[2020-12-11] MEDS ORDERED: ONDANSETRON 4 MG/2 ML VIAL IVP PRN (15:04)
[2020-12-11] MEDS: SODIUM CHLORIDE 0.9% 1,000 ML IV SCH (15:27)
[2020-12-11 15:29] LABS: Appearance,Urine Clear (Clear); Bilirubin,Urine Negative (Negative); Blood,Urine Negative (Negative); Color,Urine Light Yellow; Glucose,Urine (UA) 4+ (Negative); Ketones,Urine 1+ (Negative); Leukocyte Esterase,Urine Negative (Negative); Nitrite,Urine Negative (Negative); PH, Urine 6.5 (5.0-8.0); Protein,Urine Negative (Negative); Specific Gravity,Urine 1.026 (1.001-1.035); Urobilinogen,Urine <2.0 mg/dL (<2.0)
[2020-12-11] MEDS: POTASSIUM CHLORIDE 20 MEQ in WATER FOR INJECTION 1 100ML.BAG IVPB SCH ×2 (15:30→21:02)
[2020-12-11 18:12] LABS: Glucose,Whole Blood 375 mg/dL (75-99)
[2020-12-11] MEDS: INSULIN ASPART (NovoLOG) 100 UNIT/ML VIAL SQ SCH ×3 (18:30→21:02)
[2020-12-11 19:57] LABS: Glucose,Whole Blood 346 mg/dL (75-99)
[2020-12-11] MEDS: VENLAFAXINE HCL ER 75 MG CAP PO SCH (21:02)
[2020-12-11] MEDS: TOPIRAMATE 100 MG TAB PO SCH (21:02)
--- NOTE | 2020-12-11 21:20 | HP ---
HISTORY AND PHYSICAL CHIEF COMPLAINT: Weakness, malaise. HISTORY OF PRESENT ILLNESS: This is another admission for this 50-year-old obese, white female who has diabetes. She recently has had some difficulty with dependent edema and shortness of breath and had been started on a diuretic program and was realizing some benefit. However, she began to feel weak, lethargic and lost her appetite. She came to the office the day before coming to the ER and it was felt that she was probably dehydrated and possibly had developed electrolyte abnormality. Her diuretics were stopped and she was contacted the next day by [employer] and was not feeling any better. Her potassium in the office had come back at 2.5. She referred to the emergency room, her potassium was even lower at 2, and she was admitted. She denied any palpitations, dizziness, etc. Past medical history, family history and personal and social histories reveal that she is ALLERGIC TO WELLBUTRIN, KEFLEX, CEPHALOSPORINS, AND CYMBALTA. She has been on medications for diabetes including metformin, Jardiance, Bydureon. She is also on ibuprofen, fenofibrate, atorvastatin, aspirin, Depakote, NovoLog 10 units 3 times a day and levothyroxine. Past medical history, family history and personal social history is otherwise unremarkable. She does not smoke. PHYSICAL EXAMINATION: Blood pressure 116/58 with a pulse of 106, respirations 17 and temperature 96.9. In GENERAL she appeared to be overweight and slightly pale. Lymph nodes are not enlarged. HEENT: Head, ears, eyes, nose, mouth and throat were normal. NECK veins could not be assessed. CHEST is clear. CARDIAC exam is normal. ABDOMEN is soft and nontender. EXTREMITIES: Normal. NEUROLOGICALLY: She is intact. IMPRESSION: She is admitted to the hospital with diagnoses: 1. Hypokalemia. 2. Dehydration. 3. Insulin-dependent diabetes mellitus. PLAN: 1. Bedrest. 2. IV fluids. 3. Replace potassium. ODL / IJN: [id number] /
[2020-12-12 06:15] LABS: Glucose,Whole Blood 257 mg/dL (75-99)
[2020-12-12] MEDS: INSULIN DETEMIR (LEVEMIR) 100 UNIT/ML SYR SQ SCH (06:46)
[2020-12-12] MEDS: INSULIN ASPART (NovoLOG) 100 UNIT/ML VIAL SQ SCH ×7 (06:46→21:19)
[2020-12-12] MEDS: PANTOPRAZOLE 40 MG TABLET PO SCH (06:46)
[2020-12-12] MEDS: LEVOTHYROXINE 75 MCG TAB PO SCH (06:46)
[2020-12-12] MEDS: SODIUM CHLORIDE 0.9% 1,000 ML IV SCH ×2 (06:46→21:19)
[2020-12-12 07:41] LABS: Basophils # (A) 0.1 k/uL (0-0.2); Basophils % (A) 1 %; Eosinophils # (A) 0.2 k/uL (0-0.7); Eosinophils % (A) 1 %; HCT 38.8 % (34.0-46.0); HGB 13.8 gm/dL (11.4-16.0); Lymphocytes # (A) 3.2 k/uL (1.0-4.8); Lymphocytes % (A) 23 %; MCH 30.1 pg (25.0-35.0); MCHC 35.4 g/dL (31.0-37.0); MCV 84.9 fL (80.0-100.0); Mean Platelet Volume 8.8; Monocytes # (A) 0.6 k/uL (0-1.0); Monocytes % (A) 5 %; Neutrophils # (A) 9.6 k/uL (1.3-7.7); Neutrophils % (A) 69 %; Platelet Count 306 k/uL (150-450); RBC 4.57 m/uL (3.80-5.40); RDW 13.5 % (11.5-15.5); WBC 13.9 k/uL (3.8-10.6)
[2020-12-12 07:53] LABS: African American GFR (CKD) >90 (>60 ml/min/1.73 sqM); Anion Gap 11 mmol/L; Blood Urea Nitrogen 27 mg/dL (7-17); Calcium 8.5 mg/dL (8.4-10.2); Carbon Dioxide 34 mmol/L (22-30); Chloride 85 mmol/L (98-107); Glucose 249 mg/dL (74-99); Non-African American GFR(CKD) 79 (>60 ml/min/1.73 sqM); Sodium 130 mmol/L (137-145)
[2020-12-12 08:06] LABS: Potassium 2.2 mmol/L (3.5-5.1)
[2020-12-12] MEDS: ATORVASTATIN 80 MG TAB PO SCH (09:11)
[2020-12-12] MEDS: FENOFIBRATE 160 MG TAB PO SCH (09:11)
[2020-12-12] MEDS: TOPIRAMATE 100 MG TAB PO SCH ×2 (09:11→21:20)
[2020-12-12] MEDS: ASPIRIN 81 MG PO SCH (09:11)
[2020-12-12] MEDS: PALIPERIDONE 3 MG TAB.ER.24 PO SCH (09:12)
[2020-12-12] MEDS: Empagliflozin [Jardiance] PO SCH (09:16)
[2020-12-12] MEDS ORDERED: Potassium Replacement Protocol 1 EACH MISC MISCELLANE PRN (11:26)
--- NOTE | 2020-12-12 11:56 | P.PN ---
Subjective Principal pleasant 50-year-old admitted for severe electrolyte abnormality secondary to Lasix which was started because of her peripheral edema. Patient doesn't have any of that edema at this time patient is presently receiving IV fluids patient continues to have severe hypokalemia secondary to significant depletion of overall body potassium and being on IV fluids leading to natriuretic hypokalemia. Patient's present potassium is 2.2 patient will need at least 100 mEq of potassium today considering that patient can use to be on IV fluids will supplement 100 mEq after which a potassium will be rechecked and will be replaced accordingly. Patient blood sugars remain high patient is on very high-dose of long-acting insulin patient is also on 10 units of pre-meal insulin which will be increased to 16 units. Constitutional: Denied any fatigue denied any fever. Cardio vascular: denied any chest pain, palpitations Gastrointestinal denied any nausea vomiting Pulmonary: Denied any shortness of breath cough Neurologic denied any new focal deficits All inpatient medications were reviewed and appropriate changes in these medications as dictated in the interval history and assessment and plan. PHYSICAL EXAMINATION: GENERAL: The patient is alert and oriented x3, not in any acute distress. Well developed, well nourished. HEENT: Pupils are round and equally reacting to light. EOMI. No scleral icterus. No conjunctival pallor. Normocephalic, atraumatic. No pharyngeal erythema. No thyromegaly. CARDIOVASCULAR: S1 and S2 present. No murmurs, rubs, or gallops. PULMONARY: Chest is clear to auscultation, no wheezing or crackles. ABDOMEN: Soft, nontender, nondistended, normoactive bowel sounds. No palpable organomegaly. MUSCULOSKELETAL: No joint swelling or deformity. EXTREMITIES: No cyanosis, clubbing, or pedal edema. NEUROLOGICAL: Gross neurological examination did not reveal any focal deficits. SKIN: No rashes. Assessment and plan -Severe hypokalemia secondary to diuretic she received and secondary to IV fluids ration replacement as mentioned above -Uncontrolled elevated blood sugars type 2 diabetes mellitus: Increase in the insulin regimen as mentioned above -Hyperthyroidism In acute renal failure improved with IV fluids and secondary to diuretics. Since that renal failure improved CONTINUE with the nonsteroidal anti- inflammatories that she is on -Acidosis we'll reflux disease -Hyperthyroidism -Depression -DVT prophylaxis: Early ambulation Objective - Vital Signs Vital signs: Vital Signs Temp 97.9 F 12/11/20 20:00 Pulse 89 12/12/20 04:00 Resp 18 12/12/20 04:00 BP 118/74 12/12/20 04:00 Pulse Ox 93 L 12/12/20 04:00 Intake & Output 12/11/20 12/12/20 12/12/20 18:59 06:59 18:59 Intake Total 525 540 Balance 525 540 Weight 107.048 kg 106.6 kg Intake: Intake, IV Titration 525 Amount Sodium Chloride 0.9% 1, 525 000 ml @ 75 mls/hr IV . [id number] [facility] Rx#:[id number] Oral 540 Other: Voiding Method Toilet # Voids 2 - Labs CBC & Chem 7: 12/12/20 07:13 12/12/20 07:13 Labs: Abnormal Lab Results - Last 24 Hours (Table) 12/11/20 12/11/20 12/11/20 Range/Units 14:06 14:06 14:06 WBC 12.6 H (3.8-10.6) k/uL Neutrophils # 9.1 H (1.3-7.7) k/uL Sodium 129 L (137-145) mmol/L Potassium 2.0 L* (3.5-5.1) mmol/L Chloride 76 L (98-107) mmol/L Carbon Dioxide 33 H (22-30) mmol/L BUN 32 H (7-17) mg/dL Creatinine 1.14 H (0.52-1.04) mg/dL Glucose 445 H (74-99) mg/dL POC Glucose (mg/dL) (75-99) mg/dL AST 52 H (14-36) U/L Alkaline Phosphatase 148 H (38-126) U/L Urine Glucose (UA) 4+ H (Negative) Urine Ketones 1+ H (Negative) 12/11/20 12/11/20 12/12/20 Range/Units 18:11 19:55 06:14 WBC (3.8-10.6) k/uL Neutrophils # (1.3-7.7) k/uL Sodium (137-145) mmol/L Potassium (3.5-5.1) mmol/L Chloride (98-107) mmol/L Carbon Dioxide (22-30) mmol/L BUN (7-17) mg/dL Creatinine (0.52-1.04) mg/dL Glucose (74-99) mg/dL POC Glucose (mg/dL) 375 H 346 H 257 H (75-99) mg/dL AST (14-36) U/L Alkaline Phosphatase (38-126) U/L Urine Glucose (UA) (Negative) Urine Ketones (Negative) 12/12/20 12/12/20 Range/Units 07:13 07:13 WBC 13.9 H (3.8-10.6) k/uL Neutrophils # 9.6 H (1.3-7.7) k/uL Sodium 130 L (137-145) mmol/L Potassium 2.2 L* (3.5-5.1) mmol/L Chloride 85 L (98-107) mmol/L Carbon Dioxide 34 H (22-30) mmol/L BUN 27 H (7-17) mg/dL Creatinine (0.52-1.04) mg/dL Glucose 249 H (74-99) mg/dL POC Glucose (mg/dL) (75-99) mg/dL AST (14-36) U/L Alkaline Phosphatase (38-126) U/L Urine Glucose (UA) (Negative) Urine Ketones (Negative)
[2020-12-12] MEDS: POTASSIUM CHLORIDE ER 20 MEQ TAB.ER PO SCH ×4 (12:00→19:26)
[2020-12-12] MEDS ORDERED: POTASSIUM CHLORIDE ER 20 MEQ TAB.ER PO ONE (13:00)
[2020-12-12 13:33] LABS: Glucose,Whole Blood 219 mg/dL (75-99)
[2020-12-12 16:55] LABS: Glucose,Whole Blood 195 mg/dL (75-99)
[2020-12-12 20:32] LABS: Glucose,Whole Blood 175 mg/dL (75-99)
[2020-12-12] MEDS: VENLAFAXINE HCL ER 75 MG CAP PO SCH (21:20)
[2020-12-12] MEDS: IBUPROFEN 800 MG TAB PO PRN (22:57)
[2020-12-12 23:38] LABS: Magnesium 1.8 mg/dL (1.6-2.3)
[2020-12-13 00:09] LABS: Potassium 2.4 mmol/L (3.5-5.1)
[2020-12-13] MEDS: POTASSIUM CHLORIDE 20 MEQ in WATER FOR INJECTION 1 100ML.BAG IVPB SCH ×4 (00:42→05:48)
[2020-12-13] MEDS: LEVOTHYROXINE 75 MCG TAB PO SCH (05:49)
[2020-12-13] MEDS: PANTOPRAZOLE 40 MG TABLET PO SCH (05:49)
[2020-12-13 07:22] LABS: Glucose,Whole Blood 233 mg/dL (75-99)
[2020-12-13] MEDS: FENOFIBRATE 160 MG TAB PO SCH (07:44)
[2020-12-13] MEDS: ATORVASTATIN 80 MG TAB PO SCH (07:44)
[2020-12-13] MEDS: TOPIRAMATE 100 MG TAB PO SCH ×2 (07:44→20:33)
[2020-12-13] MEDS: ASPIRIN 81 MG PO SCH (07:44)
[2020-12-13] MEDS: IBUPROFEN 800 MG TAB PO PRN (07:44)
[2020-12-13] MEDS: PALIPERIDONE 3 MG TAB.ER.24 PO SCH (07:45)
[2020-12-13] MEDS: INSULIN ASPART (NovoLOG) 100 UNIT/ML VIAL SQ SCH ×7 (07:46→20:33)
[2020-12-13] MEDS: Empagliflozin [Jardiance] PO SCH (07:46)
[2020-12-13] MEDS: SODIUM CHLORIDE 0.9% 1,000 ML IV SCH ×2 (07:47→20:35)
[2020-12-13] MEDS: INSULIN DETEMIR (LEVEMIR) 100 UNIT/ML SYR SQ SCH (07:47)
[2020-12-13 12:20] LABS: Glucose,Whole Blood 183 mg/dL (75-99)
[2020-12-13] MEDS ORDERED: POTASSIUM CHLORIDE 20 MEQ in WATER FOR INJECTION 1 100ML.BAG IVPB STA (14:13)
[2020-12-13] MEDS: POTASSIUM CHLORIDE ER 20 MEQ TAB.ER PO SCH ×4 (14:31→22:10)
[2020-12-13 17:15] LABS: Glucose,Whole Blood 156 mg/dL (75-99)
[2020-12-13 20:06] LABS: Glucose,Whole Blood 274 mg/dL (75-99)
[2020-12-13] MEDS: VENLAFAXINE HCL ER 75 MG CAP PO SCH (20:33)
[2020-12-14] MEDS ORDERED: INSULIN DETEMIR (LEVEMIR) 100 UNIT/ML SYR SQ SCH (07:00)
[2020-12-14] MEDS: PANTOPRAZOLE 40 MG TABLET PO SCH (07:04)
[2020-12-14] MEDS: LEVOTHYROXINE 75 MCG TAB PO SCH (07:05)
[2020-12-14] MEDS: INSULIN ASPART (NovoLOG) 100 UNIT/ML VIAL SQ SCH ×7 (07:08→20:54)
[2020-12-14 07:15] LABS: Glucose,Whole Blood 177 mg/dL (75-99)
[2020-12-14] MEDS: ASPIRIN 81 MG PO SCH (08:05)
[2020-12-14] MEDS: FENOFIBRATE 160 MG TAB PO SCH (08:05)
[2020-12-14] MEDS: POTASSIUM CHLORIDE ER 20 MEQ TAB.ER PO SCH ×2 (08:05→20:54)
[2020-12-14] MEDS: TOPIRAMATE 100 MG TAB PO SCH ×2 (08:05→20:54)
[2020-12-14] MEDS: ATORVASTATIN 80 MG TAB PO SCH (08:05)
[2020-12-14] MEDS: PALIPERIDONE 3 MG TAB.ER.24 PO SCH (08:06)
[2020-12-14] MEDS: Empagliflozin [Jardiance] PO SCH (08:08)
[2020-12-14 08:56] LABS: African American GFR (CKD) >90 (>60 ml/min/1.73 sqM); Anion Gap 8 mmol/L; Blood Urea Nitrogen 14 mg/dL (7-17); Calcium 8.4 mg/dL (8.4-10.2); Carbon Dioxide 25 mmol/L (22-30); Chloride 103 mmol/L (98-107); Glucose 199 mg/dL (74-99); Non-African American GFR(CKD) 90 (>60 ml/min/1.73 sqM); Potassium 3.1 mmol/L (3.5-5.1); Sodium 136 mmol/L (137-145)
[2020-12-14 12:01] LABS: Glucose,Whole Blood 183 mg/dL (75-99)
[2020-12-14] MEDS: SODIUM CHLORIDE 0.9% 1,000 ML IV SCH ×2 (13:14→23:57)
[2020-12-14 17:09] LABS: Glucose,Whole Blood 147 mg/dL (75-99)
--- NOTE | 2020-12-14 17:42 | PN ---
PROGRESS NOTE DATE OF SERVICE: 12/13/2020. CHIEF COMPLAINT: Hypokalemia. HISTORY OF PRESENT ILLNESS: This lady is starting to feel a little bit better with less of weakness, malaise and anorexia. Potassium is still very low, however, blood sugars are also slightly elevated. PHYSICAL EXAMINATION: Chest is clear. Cardiac exam is normal. Abdomen is soft and protuberant. IMPRESSION: 1. Hypokalemia. 2. Elevated blood sugars. PLAN: 1. Continue to replace potassium. Her total body potassium was extremely low. 2. Address elevating blood sugars. MMODL / IJN: [id number] /
--- NOTE | 2020-12-14 18:00 | PN ---
PROGRESS NOTE CHIEF COMPLAINT: Hypokalemia. HISTORY OF PRESENT ILLNESS: This lady continues with potassium replacement. Her potassium is still low. Also, her blood sugars are slightly high and this will be addressed. REVIEW OF SYSTEMS: She has no complaints. PHYSICAL EXAMINATION: Color is good. Chest is clear. Cardiac exam is normal. Abdomen is soft, nontender. IMPRESSION: 1. Hypokalemia. 2. Poorly controlled diabetes. PLAN: Increase insulin management. Continue with potassium replacement. MMODL / IJN: [id number] /
[2020-12-14 20:32] LABS: Glucose,Whole Blood 278 mg/dL (75-99)
[2020-12-14] MEDS: VENLAFAXINE HCL ER 75 MG CAP PO SCH (20:54)
[2020-12-15] MEDS: IBUPROFEN 800 MG TAB PO PRN (02:14)
[2020-12-15] MEDS: LEVOTHYROXINE 75 MCG TAB PO SCH (05:26)
[2020-12-15 06:32] LABS: ALT 26 U/L (4-34); AST 37 U/L (14-36); African American GFR (CKD) >90 (>60 ml/min/1.73 sqM); Albumin 2.9 g/dL (3.5-5.0); Alkaline Phosphatase 140 U/L (38-126); Anion Gap 7 mmol/L; Blood Urea Nitrogen 13 mg/dL (7-17); Calcium 8.1 mg/dL (8.4-10.2); Carbon Dioxide 22 mmol/L (22-30); Chloride 109 mmol/L (98-107); Glucose 225 mg/dL (74-99); Non-African American GFR(CKD) >90 (>60 ml/min/1.73 sqM); Potassium 3.3 mmol/L (3.5-5.1); Sodium 138 mmol/L (137-145); Total Bilirubin <0.1 mg/dL (0.2-1.3); Total Protein 5.2 g/dL (6.3-8.2)
[2020-12-15] MEDS ORDERED: Potassium Replacement Protocol 1 EACH MISC MISCELLANE PRN (08:28)
[2020-12-15] MEDS: Empagliflozin [Jardiance] PO SCH (08:30)
[2020-12-15 08:33] LABS: Glucose,Whole Blood 219 mg/dL (75-99)
[2020-12-15] MEDS: INSULIN ASPART (NovoLOG) 100 UNIT/ML VIAL SQ SCH ×7 (08:33→21:18)
[2020-12-15] MEDS: ASPIRIN 81 MG PO SCH (08:34)
[2020-12-15] MEDS: PANTOPRAZOLE 40 MG TABLET PO SCH (08:34)
[2020-12-15] MEDS: POTASSIUM CHLORIDE ER 20 MEQ TAB.ER PO SCH ×4 (08:35→21:17)
[2020-12-15] MEDS: FENOFIBRATE 160 MG TAB PO SCH (08:35)
[2020-12-15] MEDS: ATORVASTATIN 80 MG TAB PO SCH (08:35)
[2020-12-15] MEDS: INSULIN DETEMIR (LEVEMIR) 100 UNIT/ML SYR SQ SCH (10:07)
[2020-12-15] MEDS: TOPIRAMATE 100 MG TAB PO SCH ×2 (10:07→21:17)
[2020-12-15] MEDS: PALIPERIDONE 3 MG TAB.ER.24 PO SCH (10:07)
--- NOTE | 2020-12-15 10:58 | PN ---
PROGRESS NOTE DATE OF SERVICE: 12/15/2020 CHIEF COMPLAINT: Hypokalemia and uncontrolled diabetes. HISTORY OF PRESENT ILLNESS: This lady is doing well. Potassium is nearing the normal range. Blood sugars are still slightly elevated. PHYSICAL EXAMINATION: Chest is clear. Cardiac exam is normal. Abdomen is soft, nontender. Extremities are normal. She feels like she is back to normal. IMPRESSION: 1. Hypokalemia. 2. Uncontrolled diabetes. 3. Probably home tomorrow pending her potassium going above 3.5. Insulin will be increased slightly. MMODL / IJN: [id number] /
[2020-12-15 12:03] LABS: Glucose,Whole Blood 236 mg/dL (75-99)
[2020-12-15] MEDS: SODIUM CHLORIDE 0.9% 1,000 ML IV SCH (12:34)
[2020-12-15 17:28] LABS: Glucose,Whole Blood 256 mg/dL (75-99)
[2020-12-15 20:30] LABS: Glucose,Whole Blood 234 mg/dL (75-99)
[2020-12-15] MEDS: VENLAFAXINE HCL ER 75 MG CAP PO SCH (21:17)
[2020-12-16] MEDS: SODIUM CHLORIDE 0.9% 1,000 ML IV SCH (03:14)
[2020-12-16] MEDS: LEVOTHYROXINE 75 MCG TAB PO SCH (05:21)
[2020-12-16 06:54] LABS: Glucose,Whole Blood 165 mg/dL (75-99)
[2020-12-16] MEDS: ATORVASTATIN 80 MG TAB PO SCH (08:10)
[2020-12-16] MEDS: POTASSIUM CHLORIDE ER 20 MEQ TAB.ER PO SCH (08:10)
[2020-12-16] MEDS: INSULIN DETEMIR (LEVEMIR) 100 UNIT/ML SYR SQ SCH (08:10)
[2020-12-16] MEDS: FENOFIBRATE 160 MG TAB PO SCH (08:10)
[2020-12-16] MEDS: INSULIN ASPART (NovoLOG) 100 UNIT/ML VIAL SQ SCH ×4 (08:10→11:39)
[2020-12-16] MEDS: PANTOPRAZOLE 40 MG TABLET PO SCH (08:10)
[2020-12-16] MEDS: ASPIRIN 81 MG PO SCH (08:10)
[2020-12-16] MEDS: TOPIRAMATE 100 MG TAB PO SCH (08:11)
[2020-12-16] MEDS: PALIPERIDONE 3 MG TAB.ER.24 PO SCH (08:11)
[2020-12-16] MEDS: Empagliflozin [Jardiance] PO SCH (10:45)
[2020-12-16 11:15] LABS: Glucose,Whole Blood 177 mg/dL (75-99)
[2020-12-16 11:50] VITALS: BP 118/76; PULSE 87; RESP 16; TEMP 98.2
[2020-12-16] MEDS ORDERED: INSULIN DETEMIR (LEVEMIR) 100 UNIT/ML SYR SQ SCH (21:00)
--- NOTE | 2020-12-17 07:52 | DS ---
DISCHARGE SUMMARY CHIEF COMPLAINT: Hypokalemia. HISTORY OF PRESENT ILLNESS AND PHYSICAL EXAMINATION: Details of this lady's history and physical can be found in the initial workup. LABORATORY STUDIES: While she was in a hospital, she had laboratory studies, details of which can be found in the laboratory section of her chart. COURSE IN THE HOSPITAL: After admission, she was placed on bedrest, started on intravenous fluids and IV potassium replacement. Her potassium actually fell the 1st day or 2 that she was in a hospital and then it slowly began to come up. Her blood sugars were out of control and this was managed with insulin. She continued to improve and it was felt she was stable enough to go home on the and she will go home on her usual activity, diet, and regular medications without the diuretics. ( ) as well. FINAL DIAGNOSES: 1. Hypoglycemia. 2. Insulin-dependent diabetes mellitus, uncontrolled. 3. Hypertension. 4. Obesity. OPERATIONS: None. CONSULTATION: None. She is improved. MMBRANT / FELIZ: [id number] /
== END 2020-12-16 11:57 | disposition home or self-care (01) | DRG 641 ==
LOC: EC 13:40 → 3SCARD 15:10 → 5NMEDONC 12-15 02:07
PROVIDERS: ADMIT Family Medicine; ATTEND Family Medicine
DX: E87.6 Hypokalemia (principal); Z68.41 Body mass index [BMI] 40.0-44.9, adult; N17.9 Acute kidney failure, unspecified; E87.1 Hypo-osmolality and hyponatremia; E87.2 Acidosis; Z79.82 Long term (current) use of aspirin; Z79.890 Hormone replacement therapy; Z79.4 Long term (current) use of insulin; E78.5 Hyperlipidemia, unspecified; K21.9 Gastro-esophageal reflux disease without esophagitis; Z87.440 Personal history of urinary (tract) infections; Z82.49 Family history of ischemic heart disease and other diseases of the circulatory system; E86.0 Dehydration; E66.9 Obesity, unspecified; T50.1X5A Adverse effect of loop [high-ceiling] diuretics, initial encounter; E11.65 Type 2 diabetes mellitus with hyperglycemia; E05.90 Thyrotoxicosis, unspecified without thyrotoxic crisis or storm; F32.9 Major depressive disorder, single episode, unspecified; R63.0 Anorexia; F25.9 Schizoaffective disorder, unspecified; F41.0 Panic disorder [episodic paroxysmal anxiety]; I10 Essential (primary) hypertension; T50.2X5A Adverse effect of carbonic-anhydrase inhibitors, benzothiadiazides and other diuretics, initial encounter; Z90.710 Acquired absence of both cervix and uterus
CPT/HCPCS: 36415; 80048; 80053; 81003; 83735; 84132; 85025; 93005; 99285

== ENCOUNTER 2021-01-03 14:31 | Inpatient (IN) | payer OTHER ==
[2021-01-03] MEDS ORDERED: SODIUM CHLORIDE 0.9% 500 ML 500 ML IV STA (15:44)
[2021-01-03] MEDS ORDERED: ACETAMINOPHEN TAB 325 MG TAB PO STA (15:44)
[2021-01-03 16:11] LABS: Basophils # (A) 0.1 k/uL (0-0.2); Basophils % (A) 1 %; Eosinophils # (A) 0.1 k/uL (0-0.7); Eosinophils % (A) 0 %; HCT 44.6 % (34.0-46.0); HGB 15.3 gm/dL (11.4-16.0); Lymphocytes # (A) 3.3 k/uL (1.0-4.8); Lymphocytes % (A) 22 %; MCH 30.4 pg (25.0-35.0); MCHC 34.4 g/dL (31.0-37.0); MCV 88.6 fL (80.0-100.0); Mean Platelet Volume 9.7; Monocytes # (A) 0.7 k/uL (0-1.0); Monocytes % (A) 5 %; Neutrophils # (A) 10.7 k/uL (1.3-7.7); Neutrophils % (A) 71 %; Platelet Count 344 k/uL (150-450); Poikilocytosis Slight; RBC 5.04 m/uL (3.80-5.40); RDW 14.7 % (11.5-15.5); WBC 15.2 k/uL (3.8-10.6)
[2021-01-03 16:21] LABS: Appearance,Urine Clear (Clear); Bacteria,Urine Rare /hpf; Bilirubin,Urine Negative (Negative); Blood,Urine Negative (Negative); Color,Urine Light Yellow; Glucose,Urine (UA) 4+ (Negative); Ketones,Urine 1+ (Negative); Leukocyte Esterase,Urine Moderate (Negative); Nitrite,Urine Negative (Negative); Protein,Urine Negative (Negative); RBC,Urine 5 /hpf (0-5); Specific Gravity,Urine 1.029 (1.001-1.035); Squamous Epithelial Cell,Urine 2 /hpf (0-4); Urobilinogen,Urine <2.0 mg/dL (<2.0); WBC,Urine 8 /hpf (0-5)
[2021-01-03 16:27] LABS: Albumin 5.1 g/dL (3.5-5.0); Calcium 10.7 mg/dL (8.4-10.2); Magnesium 2.2 mg/dL (1.6-2.3); Phosphorus 3.9 mg/dL (2.5-4.5); Total Bilirubin 0.6 mg/dL (0.2-1.3); Total Protein 8.4 g/dL (6.3-8.2)
[2021-01-03 16:31] LABS: Potassium 2.6 mmol/L (3.5-5.1)
--- NOTE | 2021-01-03 16:46 | XR ---
EXAMINATION TYPE: XR chest 2V DATE OF EXAM: 01/03/2021 COMPARISON: 11/11/2019 HISTORY: Fever and cough TECHNIQUE: FINDINGS: Heart and mediastinum are normal. Lungs are clear of infiltrate. There is no pleural effusi on. Bony thorax appears normal. IMPRESSION: Normal chest. No change.
[2021-01-03] MEDS ORDERED: POTASSIUM CHLORIDE 20 MEQ in WATER FOR INJECTION 1 100ML.BAG IVPB STA (16:59)
[2021-01-03] MEDS ORDERED: POTASSIUM CHLORIDE ER 20 MEQ TAB.ER PO STA (16:59)
[2021-01-03] MEDS ORDERED: cefTRIAXone IN SWFI 1,000 MG/10 ML SYRINGE IVP STA (17:03)
[2021-01-03] MEDS ORDERED: diphenhydrAMINE 50 MG/ML 1 ML VIAL IVP STA (17:05)
--- NOTE | 2021-01-03 17:05 | ED ---
Recheck HPI - General Chief Complaint: Recheck/Abnormal Lab/Rx Stated Complaint: low potassium Source: patient Mode of arrival: wheelchair Limitations: no limitations - History of Present Illness Initial Comments: 50-year-old female presents to emergency department with a chief complaint of low potassium. Patient reports she had laboratory work obtained through Dr. Lopes on Wednesday and it showed a potassium of 3.1. She went to see her primary care physician today who advised to come to the emergency department for admission. Her sister is also present in the room states the patient has been feeling "out of it". Her sister states the patient hands or tremoring and she has body aches all over but she does take Percocet for chronic pain. She states the fever only started today. Patient denies any URI like symptoms. Denies chest pain, shortness of breath, cough. Patient denies any dysuria, increased urgency or frequency. Not Covid vaccinated. She denies any abdominal pain. Patient is on daily oral potassium. Denies any nausea vomiting or diarrhea. - Related Data Home Medications Medication Instructions Recorded Confirmed Omeprazole [PriLOSEC] 20 mg PO DAILY 01/12/19 12/11/20 Aspirin [Adult Low Dose Aspirin EC] 81 mg PO DAILY 11/10/19 12/11/20 Atorvastatin [Lipitor] 80 mg PO DAILY 11/10/19 12/11/20 Fenofibrate 160 mg PO DAILY 11/10/19 12/11/20 Levothyroxine Sodium [Synthroid] 150 mcg PO DAILY 11/10/19 12/11/20 Insulin Glargine,Hum.rec.anlog 80 unit SQ DAILY 05/14/20 12/11/20 [Lantus Solostar] Cyclobenzaprine [Flexeril] 10 mg PO TID PRN 07/10/20 12/11/20 Empagliflozin [Jardiance] 25 mg PO DAILY 12/11/20 12/11/20 INSULIN ASPART (NovoLOG) [NovoLOG 10 unit SQ AC-TID 12/11/20 12/11/20 (formulary)] Paliperidone [Paliperidone ER] 9 mg PO DAILY 12/11/20 12/11/20 Topiramate [Topamax] 100 mg PO BID 12/11/20 12/11/20 Venlafaxine HCl [Effexor XR] 75 mg PO HS 12/11/20 12/11/20 Vitamin D3 50,000 Units 50,000 units PO Q30D 12/11/20 12/11/20 metFORMIN HCL [Glucophage] 1,000 mg PO BID 12/11/20 12/11/20 Furosemide [Lasix] 40 mg PO DIRECTED 01/03/21 01/03/21 metOLazone [Zaroxolyn] 2.5 mg PO DIRECTED 01/03/21 01/03/21 oxyCODONE-APAP 7.5-325MG [Percocet 1 tab PO TID 01/03/21 01/03/21 7.5-325 mg] Previous Rx's Medication Instructions Recorded Ibuprofen 800 mg PO Q8HR PRN #30 tablet 08/22/20 Potassium Chloride ER [K-Dur 20] 20 meq PO TID #30 tab.er.prt 12/16/20 Allergies Allergy/AdvReac Type Severity Reaction Status Date / Time cephalexin [From Keflex] Allergy Rash/Hives Verified 01/03/21 17:21 Penicillins Allergy Rash/Hives Verified 01/03/21 17:21 propoxyphene Allergy Rash/Hives Verified 01/03/21 17:21 [From Darvocet-N] Review of Systems ROS Statement: Those systems with pertinent positive or pertinent negative responses have been documented in the HPI. ROS Other: All systems not noted in ROS Statement are negative. Past Medical History Past Medical History: Diabetes Mellitus, GERD/Reflux, Hyperlipidemia, Thyroid Disorder Additional Past Medical History / Comment(s): hx ventral hernia, frequent uti's,twisted small bowel History of Any Multi-Drug Resistant Organisms: None Reported Past Surgical History: Bowel Resection, Section, Cholecystectomy, Hernia Repair, Hysterectomy, Joint Replacement, Orthopedic Surgery Additional Past Surgical History / Comment(s): bilat knees replaced,. thymus gland,. ventral hernia repair w/ mesh. COLONOSCOPY/EGD Past Anesthesia/Blood Transfusion Reactions: No Reported Reaction Additional Past Anesthesia/Blood Transfusion Reaction / Comment(s): no problems with prior blood transfusion in 1994 Past Psychological History: Anxiety, Depression, Panic Disorder, Schizoaffective Disorder Smoking Status: Never smoker Past Alcohol Use History: None Reported Past Drug Use History: None Reported - Past Family History Mother Family Medical History: Cancer Additional Family Medical History / Comment(s): lung Father Family Medical History: Myocardial Infarction ([place]) General Exam Limitations: no limitations General appearance: alert, in no apparent distress, obese Head exam: Present: atraumatic, normocephalic, normal inspection Eye exam: Present: normal appearance, PERRL, EOMI Pupils: Present: normal accommodation ENT exam: Present: normal exam, normal oropharynx, mucous membranes dry, TM's normal bilaterally, normal external ear exam Neck exam: Present: normal inspection, full ROM Respiratory exam: Present: normal lung sounds bilaterally. Absent: respiratory distress, wheezes, rales, rhonchi, stridor Cardiovascular Exam: Present: regular rate, normal rhythm, normal heart sounds GI/Abdominal exam: Present: soft. Absent: distended, guarding, rebound Extremities exam: Present: normal inspection, full ROM, normal capillary refill, other (Palpable DP and PT bilaterally). Absent: tenderness, pedal edema, joint swelling, calf tenderness Back exam: Present: normal inspection (No decubitus ulcers), full ROM Neurological exam: Present: alert, oriented X3 Psychiatric exam: Present: normal affect, normal mood Skin exam: Present: warm, dry, intact, normal color Course Vital Signs 01/03/21 01/03/21 14:33 16:20 Temperature 102.3 F H 102.8 F H Pulse Rate 113 H 118 H Respiratory 18 16 Rate Blood Pressure 143/75 126/95 O2 Sat by Pulse 94 L 97 Oximetry Medical Decision Making - Medical Decision Making 50-year-old female presents to emergency department with a chief complaint of low potassium. On physical examination, patient is well-appearing but she is febrile and tachycardic. Chest x-ray is unremarkable. UA shows no signs of urinary tract infection. Covid negative. CBC reveals leukocytosis of 15.2 K. CMP shows hyponatremia likely secondary hyperglycemia. Potassium of 2.6 with normal phosphorus and magnesium. Lactic acid 2.4. Patient has an ALLERGY to Keflex and penicillins. After speaking to attending Dr. Jamison, he recommended vancomycin and clindamycin. Patient has hemodynamically stable. Patient started on IV fluids, oral and IV potassium replacement and antipyretics. I do not have a source of the fever at this time. Patient will be admitted for further medical management. Case discussed with . - Lab Data Result diagrams: 01/03/21 16:00 01/03/21 16:00 Lab Results 01/03/21 01/03/21 01/03/21 Range/Units 16:00 16:00 16:00 WBC 15.2 H (3.8-10.6) k/uL RBC 5.04 (3.80-5.40) m/uL Hgb 15.3 (11.4-16.0) gm/dL Hct 44.6 (34.0-46.0) % MCV 88.6 (80.0-100.0) fL MCH 30.4 (25.0-35.0) pg MCHC 34.4 (31.0-37.0) g/dL RDW 14.7 (11.5-15.5) % Plt Count 344 (150-450) k/uL MPV 9.7 Neutrophils % 71 % Lymphocytes % 22 % Monocytes % 5 % Eosinophils % 0 % Basophils % 1 % Neutrophils # 10.7 H (1.3-7.7) k/uL Lymphocytes # 3.3 (1.0-4.8) k/uL Monocytes # 0.7 (0-1.0) k/uL Eosinophils # 0.1 (0-0.7) k/uL Basophils # 0.1 (0-0.2) k/uL Poikilocytosis Slight Sodium 129 L (137-145) mmol/L Potassium 2.6 L* (3.5-5.1) mmol/L Chloride 78 L (98-107) mmol/L Carbon Dioxide 34 H (22-30) mmol/L Anion Gap 17 mmol/L BUN 26 H (7-17) mg/dL Creatinine 1.08 H (0.52-1.04) mg/dL Est GFR (CKD-EPI)AfAm 70 (>60 ml/min/1.73 sqM) Est GFR (CKD-EPI)NonAf 61 (>60 ml/min/1.73 sqM) Glucose 256 H (74-99) mg/dL Plasma Lactic Acid Shayan 2.4 H* (0.7-2.0) mmol/L Calcium 10.7 H (8.4-10.2) mg/dL Phosphorus 3.9 (2.5-4.5) mg/dL Magnesium 2.2 (1.6-2.3) mg/dL Total Bilirubin 0.6 (0.2-1.3) mg/dL AST 49 H (14-36) U/L ALT 23 (4-34) U/L Alkaline Phosphatase 135 H (38-126) U/L Troponin I (0.000-0.034) ng/mL Total Protein 8.4 H (6.3-8.2) g/dL Albumin 5.1 H (3.5-5.0) g/dL Urine Color Urine Appearance (Clear) Urine pH (5.0-8.0) Ur Specific [place] (1.001-1.035) Urine Protein (Negative) Urine Glucose (UA) (Negative) Urine Ketones (Negative) Urine Blood (Negative) Urine Nitrite (Negative) Urine Bilirubin (Negative) Urine Urobilinogen (<2.0) mg/dL Ur Leukocyte Esterase (Negative) Urine RBC (0-5) /hpf Urine WBC (0-5) /hpf Ur Squamous Epith Cells (0-4) /hpf Urine Bacteria (None) /hpf Coronavirus (PCR) (Not Detectd) 01/03/21 01/03/21 01/03/21 Range/Units 16:00 16:00 16:00 WBC (3.8-10.6) k/uL RBC (3.80-5.40) m/uL Hgb (11.4-16.0) gm/dL Hct (34.0-46.0) % MCV (80.0-100.0) fL MCH (25.0-35.0) pg MCHC (31.0-37.0) g/dL RDW (11.5-15.5) % Plt Count (150-450) k/uL MPV Neutrophils % % Lymphocytes % % Monocytes % % Eosinophils % % Basophils % % Neutrophils # (1.3-7.7) k/uL Lymphocytes # (1.0-4.8) k/uL Monocytes # (0-1.0) k/uL Eosinophils # (0-0.7) k/uL Basophils # (0-0.2) k/uL Poikilocytosis Sodium (137-145) mmol/L Potassium (3.5-5.1) mmol/L Chloride (98-107) mmol/L Carbon Dioxide (22-30) mmol/L Anion Gap mmol/L BUN (7-17) mg/dL Creatinine (0.52-1.04) mg/dL Est GFR (CKD-EPI)AfAm (>60 ml/min/1.73 sqM) Est GFR (CKD-EPI)NonAf (>60 ml/min/1.73 sqM) Glucose (74-99) mg/dL Plasma Lactic Acid Shayan (0.7-2.0) mmol/L Calcium (8.4-10.2) mg/dL Phosphorus (2.5-4.5) mg/dL Magnesium (1.6-2.3) mg/dL Total Bilirubin (0.2-1.3) mg/dL AST (14-36) U/L ALT (4-34) U/L Alkaline Phosphatase (38-126) U/L Troponin I <0.012 (0.000-0.034) ng/mL Total Protein (6.3-8.2) g/dL Albumin (3.5-5.0) g/dL Urine Color Light Yellow Urine Appearance Clear (Clear) Urine pH 7.0 (5.0-8.0) Ur Specific [place] 1.029 (1.001-1.035) Urine Protein Negative (Negative) Urine Glucose (UA) 4+ H (Negative) Urine Ketones 1+ H (Negative) Urine Blood Negative (Negative) Urine Nitrite Negative (Negative) Urine Bilirubin Negative (Negative) Urine Urobilinogen <2.0 (<2.0) mg/dL Ur Leukocyte Esterase Moderate H (Negative) Urine RBC 5 (0-5) /hpf Urine WBC 8 H (0-5) /hpf Ur Squamous Epith Cells 2 (0-4) /hpf Urine Bacteria Rare H (None) /hpf Coronavirus (PCR) Not Detected (Not Detectd) - EKG Data EKG Comments: Sinus tachycardia Ventricular rate 112, DC 150, QRS 70, QTc 10/17/2012. Disposition Clinical Impression: Fever, Hypokalemia, Sepsis Disposition: ADMITTED IP TO THIS HOSP Condition: Stable Is patient prescribed a controlled substance at d/c from ED?: No Referrals: Ramin Lopes MD [Primary Care Provider] - 1-2 days Time of Disposition: 17:28
[2021-01-03] MEDS ORDERED: VANCOMYCIN IV PER PHARMACY 1 EACH MISC MISCELLANE PRN (17:18)
[2021-01-03] MEDS ORDERED: CLINDAMYCIN 600 MG in DEXTROSE 5% IN WATER 50 ML IVPB STA ×2 (17:19)
[2021-01-03] MEDS ORDERED: SODIUM CHLORIDE 0.9% 1,000 ML IV STA (17:24)
[2021-01-03] MEDS ORDERED: ONDANSETRON 4 MG/2 ML VIAL IVP PRN (17:29)
[2021-01-03] MEDS ORDERED: NALOXONE 0.4 MG/ML 1 ML VIAL IV PRN (17:29)
[2021-01-03] MEDS ORDERED: VANCOMYCIN 1,750 MG in SODIUM CHLORIDE 0.9% 500 ML 500 ML IVPB ONE (17:30)
[2021-01-03] MEDS: SODIUM CHLORIDE 0.9% 1,000 ML IV SCH (18:00)
[2021-01-03 22:06] LABS: Glucose,Whole Blood 223 mg/dL (75-99)
[2021-01-03] MEDS ORDERED: INSULIN DETEMIR (LEVEMIR) 100 UNIT/ML SYR SQ SCH (22:30)
[2021-01-03] MEDS: VENLAFAXINE HCL ER 75 MG CAP PO SCH (22:42)
[2021-01-03] MEDS: ASPIRIN 81 MG PO SCH (22:42)
[2021-01-04] MEDS ORDERED: Potassium Replacement Protocol 1 EACH MISC MISCELLANE PRN ×2 (00:02→10:22)
[2021-01-04] MEDS ORDERED: POTASSIUM CHLORIDE 10 MEQ in WATER FOR INJECTION 1 100ML.BAG IVPB ONE ×2 (01:00→02:06)
[2021-01-04] MEDS ORDERED: POTASSIUM CHLORIDE 10 MEQ in WATER FOR INJECTION 1 100ML.BAG IVPB STA (01:55)
[2021-01-04] MEDS: SODIUM CHLORIDE 0.9% 1,000 ML IV SCH ×3 (02:01→20:29)
[2021-01-04] MEDS: LEVOTHYROXINE 75 MCG TAB PO SCH (06:46)
[2021-01-04] MEDS: INSULIN ASPART (NovoLOG) 100 UNIT/ML VIAL SQ SCH ×3 (07:06→17:11)
[2021-01-04 07:07] LABS: Glucose,Whole Blood 174 mg/dL (75-99)
[2021-01-04] MEDS: PALIPERIDONE 9 MG PO SCH (07:57)
[2021-01-04] MEDS ORDERED: PANTOPRAZOLE 40 MG/10 ML VIAL IV SCH (09:00)
[2021-01-04] MEDS: TOPIRAMATE 100 MG TAB PO SCH ×2 (09:01→20:30)
[2021-01-04] MEDS: PANTOPRAZOLE 40 MG TABLET PO SCH (09:01)
[2021-01-04] MEDS: ASPIRIN 81 MG PO SCH (09:01)
[2021-01-04] MEDS: POTASSIUM CHLORIDE ER 20 MEQ TAB.ER PO SCH ×6 (09:02→22:21)
[2021-01-04] MEDS: INSULIN DETEMIR (LEVEMIR) 100 UNIT/ML SYR SQ SCH (09:02)
[2021-01-04] MEDS: oxyCODONE-APAP 7.5-325MG 1 EACH TAB PO PRN ×2 (09:10→20:33)
[2021-01-04 09:48] LABS: Basophils # (A) 0.1 k/uL (0-0.2); Basophils % (A) 1 %; Eosinophils # (A) 0.2 k/uL (0-0.7); Eosinophils % (A) 2 %; HCT 38.6 % (34.0-46.0); Lymphocytes # (A) 3.3 k/uL (1.0-4.8); Lymphocytes % (A) 23 %; MCH 29.9 pg (25.0-35.0); MCHC 33.7 g/dL (31.0-37.0); MCV 88.6 fL (80.0-100.0); Mean Platelet Volume 9.7; Monocytes # (A) 0.7 k/uL (0-1.0); Monocytes % (A) 5 %; Neutrophils # (A) 9.8 k/uL (1.3-7.7); Neutrophils % (A) 68 %; Platelet Count 279 k/uL (150-450); RBC 4.35 m/uL (3.80-5.40); RDW 14.4 % (11.5-15.5); WBC 14.4 k/uL (3.8-10.6)
[2021-01-04 10:00] LABS: African American GFR (CKD) >90 (>60 ml/min/1.73 sqM); Anion Gap 11 mmol/L; Blood Urea Nitrogen 20 mg/dL (7-17); Calcium 8.2 mg/dL (8.4-10.2); Carbon Dioxide 31 mmol/L (22-30); Chloride 88 mmol/L (98-107); Glucose 174 mg/dL (74-99); Magnesium 1.7 mg/dL (1.6-2.3); Non-African American GFR(CKD) >90 (>60 ml/min/1.73 sqM); Sodium 130 mmol/L (137-145)
[2021-01-04 10:11] LABS: Potassium 2.1 mmol/L (3.5-5.1)
--- NOTE | 2021-01-04 10:43 | XR ---
EXAMINATION TYPE: XR chest 2V DATE OF EXAM: 01/04/2021 COMPARISON: 01/03/2021 INDICATION: Fever of unknown origin TECHNIQUE: Single frontal view of the chest is obtained. FINDINGS: The heart size is normal. The pulmonary vasculature is normal. The lungs are clear. IMPRESSION: 1. No acute pulmonary process.
[2021-01-04 10:51] LABS: ALT 18 U/L (4-34); AST 46 U/L (14-36); Albumin 3.8 g/dL (3.5-5.0); Alkaline Phosphatase 87 U/L (38-126); Total Bilirubin 0.5 mg/dL (0.2-1.3); Total Protein 6.4 g/dL (6.3-8.2)
[2021-01-04] MEDS: VANCOMYCIN 1,750 MG in SODIUM CHLORIDE 0.9% 500 ML 500 ML IVPB SCH ×2 (12:02→22:09)
[2021-01-04] MEDS: POTASSIUM CHLORIDE 20 MEQ in WATER FOR INJECTION 1 100ML.BAG IVPB SCH ×4 (12:02→19:51)
[2021-01-04 12:07] LABS: Glucose,Whole Blood 203 mg/dL (75-99)
[2021-01-04 17:04] LABS: Glucose,Whole Blood 203 mg/dL (75-99)
[2021-01-04 20:10] LABS: Glucose,Whole Blood 171 mg/dL (75-99)
[2021-01-04] MEDS: VENLAFAXINE HCL ER 75 MG CAP PO SCH (20:29)
[2021-01-04 20:33] LABS: Hemoglobin A1C 8.8 % (4.0-6.0)
[2021-01-04] MEDS ORDERED: VANCOMYCIN 1,750 MG in SODIUM CHLORIDE 0.9% 500 ML 500 ML IVPB SCH (21:00)
[2021-01-04 23:26] LABS: Magnesium 1.8 mg/dL (1.6-2.3)
[2021-01-05 00:33] LABS: Potassium 2.3 mmol/L (3.5-5.1)
[2021-01-05] MEDS: POTASSIUM CHLORIDE ER 20 MEQ TAB.ER PO SCH ×6 (00:50→21:01)
[2021-01-05] MEDS: POTASSIUM CHLORIDE 20 MEQ in WATER FOR INJECTION 1 100ML.BAG IVPB SCH ×4 (00:53→06:28)
[2021-01-05] MEDS: SODIUM CHLORIDE 0.9% 1,000 ML IV SCH ×3 (02:48→18:44)
[2021-01-05] MEDS: LEVOTHYROXINE 75 MCG TAB PO SCH (06:27)
[2021-01-05] MEDS: INSULIN ASPART (NovoLOG) 100 UNIT/ML VIAL SQ SCH ×3 (06:33→17:59)
[2021-01-05] MEDS: PALIPERIDONE 9 MG PO SCH (07:30)
[2021-01-05 08:55] LABS: African American GFR (CKD) >90 (>60 ml/min/1.73 sqM); Anion Gap 11 mmol/L; Blood Urea Nitrogen 15 mg/dL (7-17); Calcium 7.7 mg/dL (8.4-10.2); Carbon Dioxide 23 mmol/L (22-30); Chloride 101 mmol/L (98-107); Glucose 114 mg/dL (74-99); Magnesium 1.9 mg/dL (1.6-2.3); Non-African American GFR(CKD) >90 (>60 ml/min/1.73 sqM); Potassium 3.6 mmol/L (3.5-5.1); Sodium 135 mmol/L (137-145)
[2021-01-05] MEDS: oxyCODONE-APAP 7.5-325MG 1 EACH TAB PO PRN ×3 (09:13→23:15)
[2021-01-05] MEDS: PANTOPRAZOLE 40 MG TABLET PO SCH (09:13)
[2021-01-05] MEDS: INSULIN DETEMIR (LEVEMIR) 100 UNIT/ML SYR SQ SCH (09:13)
[2021-01-05] MEDS: TOPIRAMATE 100 MG TAB PO SCH ×2 (09:13→21:01)
[2021-01-05] MEDS: VANCOMYCIN 1,750 MG in SODIUM CHLORIDE 0.9% 500 ML 500 ML IVPB SCH ×2 (09:14→21:01)
[2021-01-05] MEDS: ASPIRIN 81 MG PO SCH (09:14)
--- NOTE | 2021-01-05 11:45 | PN ---
PROGRESS NOTE CHIEF COMPLAINT: Hypokalemia, dehydration, diabetes. HISTORY OF PRESENT ILLNESS: This lady is feeling much better. Her potassium is actually gotten up to normal. She has not been running a temp. Etiology for her fever when she came in is not clear. She has no cough, shortness of breath, chest pain, abdominal pain, urinary complaints, etc. PHYSICAL EXAMINATION: Vital signs are normal. Chest is clear. Cardiac exam is normal. IMPRESSION: 1. Hypokalemia. 2. Fever, undetermined etiology. PLAN: Progress activity and probably discharge tomorrow. MMODL / IJN: [id number] /
[2021-01-05 11:53] LABS: Glucose,Whole Blood 139 mg/dL (75-99)
[2021-01-05 12:17] LABS: Glucose,Whole Blood 213 mg/dL (75-99)
[2021-01-05] MEDS: CYCLOBENZAPRINE 10 MG TAB PO PRN (15:16)
[2021-01-05 16:56] LABS: Glucose,Whole Blood 143 mg/dL (75-99)
--- NOTE | 2021-01-05 19:19 | HP ---
HISTORY AND PHYSICAL CHIEF COMPLAINT: Weakness, malaise. HISTORY OF PRESENT ILLNESS: This is another recent admission for this 50-year-old obese white female. She has been having some problems with edema and was recently treated with diuretics. The edema subsided, but then she developed a malaise, weakness and was found to have a potassium in the 2s. The diuretics were stopped and her hemodynamic balance was restored. However, she started to have swelling again and demanded to be put back on diuretics. They were reintroduced in smaller dose and she was doing well and then suddenly came in with weakness, malaise and loss of appetite. She went to the emergency room where her potassium was 2.6 and she had a temperature of a 102.3. She had no complaints of cough, shortness of breath, fever and chills, sore throat, urinary symptoms, etc. REVIEW OF SYSTEMS: She denies any headaches, difficulty with vision hearing, shortness of breath. No cough, hemoptysis, sputum production, chest pain, abdominal pain, nausea, vomiting, hematemesis, melena, hematochezia, etc. Past medical history, family history, personal and social histories are all otherwise unremarkable and unchanged from her recent admitting and discharge summaries. She is ALLERGIC TO CYMBALTA, WELLBUTRIN, AND CEPHALOSPORINS. She has been on medications which can be found in her MAR. She does have insulin- dependent diabetes mellitus. PHYSICAL EXAMINATION: Blood pressure is 130/70 with a pulse of 95, respirations of 36, and she is afebrile. In general, she appeared to be overweight and dehydrated. She is awake and alert. Head, ears, eyes, nose, mouth and throat were normal. Neck was supple. Chest is clear. No rales or rhonchi. Cardiac exam is normal and no murmurs or extra sounds. The abdomen is protuberant, soft and nontender without any visceromegaly or masses. Bowel sounds are present. Extremities are normal. Neurologically she is intact. IMPRESSION: She is admitted to the hospital with diagnoses: 1. Hypokalemia. 2. Fever, undetermined etiology. 3. Insulin-dependent diabetes mellitus. PLAN: 1. Bedrest. 2. IV fluids. 3. Restore potassium. 4. Monitor her temperature, look for any source of infection. MMODL / IJN: [id number] /
--- NOTE | 2021-01-05 19:20 | PN ---
PROGRESS NOTE DATE OF SERVICE: 01/04/2021 CHIEF COMPLAINT: Hypokalemia, FUO. HISTORY OF PRESENT ILLNESS: This lady is doing much better. Potassium is rising and she has not had a fever. She has no complaints of headache, chest pain, shortness of breath, abdominal pain, etc. She has had no urinary symptoms. PHYSICAL EXAMINATION: Chest is clear. Cardiac exam is normal. Abdomen is soft, nontender. IMPRESSION: 1. Hypokalemia. 2. Fever, undetermined etiology. PLAN: Continue to restore potassium and increase activity. MMODL / IJN: [id number] /
[2021-01-05 19:56] LABS: Glucose,Whole Blood 239 mg/dL (75-99)
[2021-01-05] MEDS: VENLAFAXINE HCL ER 75 MG CAP PO SCH (21:01)
[2021-01-06] MEDS: LEVOTHYROXINE 75 MCG TAB PO SCH (06:59)
[2021-01-06 07:24] LABS: Glucose,Whole Blood 132 mg/dL (75-99)
[2021-01-06] MEDS ORDERED: VANCOMYCIN TROUGH DUE 1 EACH MISC MISCELLANE ONE (08:00)
[2021-01-06] MEDS: INSULIN ASPART (NovoLOG) 100 UNIT/ML VIAL SQ SCH ×3 (08:45→16:45)
[2021-01-06] MEDS: SODIUM CHLORIDE 0.9% 1,000 ML IV SCH ×3 (08:46→20:47)
[2021-01-06] MEDS: TOPIRAMATE 100 MG TAB PO SCH ×2 (09:00→20:39)
[2021-01-06] MEDS: POTASSIUM CHLORIDE ER 20 MEQ TAB.ER PO SCH ×5 (09:00→20:39)
[2021-01-06] MEDS: ASPIRIN 81 MG PO SCH (09:00)
[2021-01-06] MEDS: INSULIN DETEMIR (LEVEMIR) 100 UNIT/ML SYR SQ SCH (09:00)
[2021-01-06] MEDS: PANTOPRAZOLE 40 MG TABLET PO SCH (09:00)
[2021-01-06] MEDS: oxyCODONE-APAP 7.5-325MG 1 EACH TAB PO PRN ×3 (09:00→23:07)
[2021-01-06] MEDS: PALIPERIDONE 9 MG PO SCH (09:01)
[2021-01-06 10:05] LABS: African American GFR (CKD) >90 (>60 ml/min/1.73 sqM); Anion Gap 8 mmol/L; Blood Urea Nitrogen 10 mg/dL (7-17); Calcium 7.8 mg/dL (8.4-10.2); Carbon Dioxide 23 mmol/L (22-30); Chloride 105 mmol/L (98-107); Glucose 170 mg/dL (74-99); Non-African American GFR(CKD) >90 (>60 ml/min/1.73 sqM); Potassium 3.2 mmol/L (3.5-5.1); Sodium 136 mmol/L (137-145)
[2021-01-06] MEDS: VANCOMYCIN 1,750 MG in SODIUM CHLORIDE 0.9% 500 ML 500 ML IVPB SCH ×2 (10:12→20:39)
[2021-01-06 12:30] LABS: Glucose,Whole Blood 185 mg/dL (75-99)
[2021-01-06 14:41] VITALS: BMI 45.6
[2021-01-06] MEDS: CYCLOBENZAPRINE 10 MG TAB PO PRN ×2 (15:10→23:07)
[2021-01-06 16:38] LABS: Glucose,Whole Blood 170 mg/dL (75-99)
[2021-01-06 20:30] LABS: Glucose,Whole Blood 216 mg/dL (75-99)
[2021-01-06] MEDS: VENLAFAXINE HCL ER 75 MG CAP PO SCH (20:39)
[2021-01-07] MEDS: SODIUM CHLORIDE 0.9% 1,000 ML IV SCH ×2 (04:00→15:21)
[2021-01-07] MEDS: LEVOTHYROXINE 75 MCG TAB PO SCH (06:38)
[2021-01-07] MEDS: oxyCODONE-APAP 7.5-325MG 1 EACH TAB PO PRN ×2 (06:38→12:13)
[2021-01-07 07:27] LABS: Glucose,Whole Blood 157 mg/dL (75-99)
[2021-01-07] MEDS: INSULIN DETEMIR (LEVEMIR) 100 UNIT/ML SYR SQ SCH (07:54)
[2021-01-07] MEDS: INSULIN ASPART (NovoLOG) 100 UNIT/ML VIAL SQ SCH ×3 (07:54→17:10)
[2021-01-07] MEDS: VANCOMYCIN 1,750 MG in SODIUM CHLORIDE 0.9% 500 ML 500 ML IVPB SCH (07:55)
[2021-01-07] MEDS: PANTOPRAZOLE 40 MG TABLET PO SCH (07:55)
[2021-01-07] MEDS: ASPIRIN 81 MG PO SCH (07:55)
[2021-01-07] MEDS: TOPIRAMATE 100 MG TAB PO SCH (07:55)
[2021-01-07] MEDS: POTASSIUM CHLORIDE ER 20 MEQ TAB.ER PO SCH ×2 (07:55→15:57)
[2021-01-07] MEDS: PALIPERIDONE 9 MG PO SCH (07:56)
[2021-01-07 12:03] LABS: Glucose,Whole Blood 117 mg/dL (75-99)
[2021-01-07 12:10] VITALS: RESP 16
[2021-01-07] MEDS: CYCLOBENZAPRINE 10 MG TAB PO PRN (12:13)
--- NOTE | 2021-01-07 13:58 | CDI ---
Documentation Clarification Form Date: 01/07/2021 12:50:42 PM From: Darlene Mondragon RN CCDS Admit Date: 01/03/2021 06:16:00 PM Patient Name: Susan Bai Visit Number: [id number] Discharge Date: ATTENTION: The Clinical Documentation Specialists (CDI) and [facility] Coding Staff appreciate your assistance in clarifying documentation. Please respond to the clarification below the line at the bottom and electronically sign. The CDI & [facility] Coding staff will review the response and follow-up if needed. Please note: Queries are made part of the Legal Health Record. If you have any questions, please contact the author of this message via ITS. Dr. Ramin Lopes The patients principal diagnosis has not been clearly identified and requires clarification. History/Risk Factors: 50-year-old female presents to the ED sent in from Dr. Lopes for low potassium with hand tremors and body aches. Medical history: DM, GERD/Reflux Clinical Indicators: Fever, Hypokalemia, Sepsis 01/03, ED Note. Fever, undetermined etiology. 01/05 H&P WBC: 01/03 15.2 Lactic acid: 01/03 2.6 Blood cultures: 01/03 Negative after 72 hours Vitals signs: 01/03 B/P 143/75, HR 113, Temp 102.3 F Oral, RR 18, SpO2 94% ra Treatment: Antibiotics:01/03 Rocephin 1,000mg IVP x 1; 01/03 Clindamycin Phosphate 600mg IVPB x 1; 01/03 Vancomycin HCI 1,750mg IVPB x1; 01/04 Vancomycin HCI 1,750mg Q24H d/c 01/04; 01/04 Vancomycin HCI 1,750mg Q12HR CHASE to current. IV Bolus:01/03 0.9NS 500ml Bolus x 1; 01/03 0.9NS 1,000mls Bolus x 1 In your professional opinion, can you please clarify which diagnosis, after study, accounted for the patients presenting symptoms and was the reason chiefly responsible for the admission? [ ] Fever possibly due to Sepsis [ ] Sepsis ruled out [ ] Other, please specify [ ] Unable to determine (Template Last Revised: July 2020) MTDD
[2021-01-07 15:57] VITALS: BP 111/71; PULSE 79; TEMP 98
[2021-01-07 17:05] LABS: Glucose,Whole Blood 158 mg/dL (75-99)
--- NOTE | 2021-01-07 22:50 | PN ---
PROGRESS NOTE DATE OF SERVICE: 01/06/2021 CHIEF COMPLAINT: Hypokalemia. HISTORY OF PRESENT ILLNESS: This lady is feeling much better. She is no longer weak and appetite has returned. Potassium is still slightly low and her discharge will be delayed another day. PHYSICAL EXAMINATION: Chest is clear. Cardiac exam is normal. Abdomen is soft, nontender. Movement is normal and she has no muscle cramps or weakness. Sugars are under control. MMODL / IJN: [id number] /
--- NOTE | 2021-01-08 06:36 | DS ---
DISCHARGE SUMMARY CHIEF COMPLAINT: Dehydration, hypokalemia. HISTORY OF PRESENT ILLNESS AND PHYSICAL EXAMINATION: Details of this lady's history and physical can be found in the initial workup. LABORATORY STUDIES: While she was in the hospital, she had laboratory studies, details of which can be found in the laboratory section of her chart. COURSE IN THE HOSPITAL: After admission, she was placed on bedrest, started on intravenous fluids and IV potassium replacement along with oral replacement and her diuretics were withheld. Her potassium came up much more quickly this admission and she was up to 3.5 on the day of discharge. She will go home on her usual activity, diet, medications, but no diuretics and she will be seen in several days. FINAL DIAGNOSES: 1. Hypokalemia. 2. Fever, undetermined etiology. 3. Diabetes mellitus. OPERATIONS: None. CONSULTATION: None. She is improved. MMBRANT / FELIZ: [id number] /
--- NOTE | 2021-01-08 06:40 | MISC ---
MISCELLANOUS REPORT Unable to determine. MMODL / IJN: [id number] /
== END 2021-01-07 18:47 | disposition home or self-care (01) | DRG 641 ==
LOC: EC 14:31 → 3SCARD 18:16
PROVIDERS: ADMIT Family Medicine; ATTEND Family Medicine
DX: E87.6 Hypokalemia (principal); Z68.42 Body mass index [BMI] 45.0-49.9, adult; E87.1 Hypo-osmolality and hyponatremia; E86.0 Dehydration; E66.9 Obesity, unspecified; Z79.82 Long term (current) use of aspirin; F25.9 Schizoaffective disorder, unspecified; F41.0 Panic disorder [episodic paroxysmal anxiety]; Z79.890 Hormone replacement therapy; Z79.4 Long term (current) use of insulin; Z20.822 Contact with and (suspected) exposure to COVID-19; Z82.49 Family history of ischemic heart disease and other diseases of the circulatory system; Z88.1 Allergy status to other antibiotic agents; Z88.0 Allergy status to penicillin; R50.9 Fever, unspecified; G89.29 Other chronic pain; Z87.440 Personal history of urinary (tract) infections; Z90.710 Acquired absence of both cervix and uterus; E78.5 Hyperlipidemia, unspecified; E11.65 Type 2 diabetes mellitus with hyperglycemia
CPT/HCPCS: 36415; 71046; 80048; 80053; 80202; 81001; 82009; 83036; 83605; 83735; 84100; 84132; 84484; 85025; 87040; 87635; 93005; 96360; 99285

== ENCOUNTER 2021-01-17 20:11 | Observation (INO) | payer OTHER ==
[2021-01-17] MEDS ORDERED: ONDANSETRON 4 MG/2 ML VIAL IVP STA (20:33)
[2021-01-17] MEDS ORDERED: SODIUM CHLORIDE 0.9% 1,000 ML IV STA ×2 (20:33→23:08)
[2021-01-17 21:17] LABS: Basophils # (A) 0.1 k/uL (0-0.2); Basophils % (A) 1 %; Eosinophils # (A) 0.3 k/uL (0-0.7); Eosinophils % (A) 2 %; HCT 38.8 % (34.0-46.0); HGB 13.2 gm/dL (11.4-16.0); Hypochromasia Slight; Lymphocytes % (A) 26 %; MCH 30.3 pg (25.0-35.0); MCHC 34.1 g/dL (31.0-37.0); Mean Platelet Volume 8.2; Monocytes # (A) 0.5 k/uL (0-1.0); Monocytes % (A) 3 %; Neutrophils # (A) 10.6 k/uL (1.3-7.7); Neutrophils % (A) 67 %; Platelet Count 392 k/uL (150-450); Poikilocytosis Slight; RBC 4.36 m/uL (3.80-5.40); RDW 15.8 % (11.5-15.5); WBC 15.8 k/uL (3.8-10.6)
[2021-01-17 21:18] LABS: Appearance,Urine Clear (Clear); Bilirubin,Urine Negative (Negative); Blood,Urine Negative (Negative); Color,Urine Light Yellow; Glucose,Urine (UA) 4+ (Negative); Ketones,Urine Negative (Negative); Leukocyte Esterase,Urine Negative (Negative); Nitrite,Urine Negative (Negative); Protein,Urine Negative (Negative); Specific Gravity,Urine 1.005 (1.001-1.035); Urobilinogen,Urine <2.0 mg/dL (<2.0)
[2021-01-17 21:25] LABS: ALT 21 U/L (4-34); AST 33 U/L (14-36); African American GFR (CKD) >90 (>60 ml/min/1.73 sqM); Albumin 4.2 g/dL (3.5-5.0); Alkaline Phosphatase 127 U/L (38-126); Amylase 43 U/L (30-110); Anion Gap 12 mmol/L; Blood Urea Nitrogen 14 mg/dL (7-17); Calcium 9.2 mg/dL (8.4-10.2); Carbon Dioxide 22 mmol/L (22-30); Chloride 100 mmol/L (98-107); Glucose 126 mg/dL (74-99); Lipase 114 U/L (23-300); Non-African American GFR(CKD) >90 (>60 ml/min/1.73 sqM); Potassium 3.1 mmol/L (3.5-5.1); Sodium 134 mmol/L (137-145); Total Bilirubin 0.3 mg/dL (0.2-1.3); Total Protein 7.1 g/dL (6.3-8.2)
--- NOTE | 2021-01-17 22:05 | XR ---
EXAMINATION TYPE: XR KUB DATE OF EXAM: 01/17/2021 COMPARISON: 11/11/2019 HISTORY: Abdominal pain TECHNIQUE: 2 views upright FINDINGS: There is retained fecal material in the large bowel. There is no sign of intestinal obstruc tion or pneumoperitoneum. There are clips from cholecystectomy. Lung bases are clear. IMPRESSION: There is evidence of constipation that is a change compared to old exam.
[2021-01-17] MEDS ORDERED: POTASSIUM CHLORIDE ER 20 MEQ TAB.ER PO STA ×2 (22:52→23:08)
[2021-01-17] MEDS ORDERED: SODIUM CHLORIDE 0.9% 500 ML 500 ML IV STA (23:08)
--- NOTE | 2021-01-18 00:43 | ED ---
Nausea/Vomiting/Diarrhea HPI - General Chief complaint: Nausea/Vomiting/Diarrhea Stated complaint: low potassium Time Seen by Provider: 01/17/21 20:33 Source: patient, EMS, RN notes reviewed Mode of arrival: EMS - History of Present Illness Initial comments: Patient is a 50-year-old female that presents to emergency department complaining of nausea vomiting weakness. Patient does have significant past medical history for hyponatremia and hypokalemia hypomagnesemia tachycardia diabetes. She notes that last time she was here she had low potassium. She feels like this feels the same way. She was in no apparent distress or pain while sitting up in bed during the exam interview. She was a pleasant woman. She denied any chest pain shortness of breath headache nausea vomiting diarrhea constipation fever fatigue chills. - Related Data Home Medications Medication Instructions Recorded Confirmed Omeprazole [PriLOSEC] 20 mg PO DAILY 01/12/19 01/03/21 Aspirin [Adult Low Dose Aspirin EC] 81 mg PO DAILY 11/10/19 01/03/21 Atorvastatin [Lipitor] 80 mg PO DAILY 11/10/19 01/03/21 Fenofibrate 160 mg PO DAILY 11/10/19 01/03/21 Levothyroxine Sodium [Synthroid] 150 mcg PO DAILY 11/10/19 01/03/21 Insulin Glargine,Hum.rec.anlog 80 unit SQ DAILY 05/14/20 01/03/21 [Lantus Solostar Pen] Cyclobenzaprine [Flexeril] 10 mg PO TID PRN 07/10/20 01/03/21 Empagliflozin [Jardiance] 25 mg PO DAILY 12/11/20 01/03/21 INSULIN ASPART (NovoLOG) [NovoLOG 10 unit SQ AC-TID 12/11/20 01/03/21 (formulary)] Paliperidone [Paliperidone ER] 9 mg PO DAILY 12/11/20 01/03/21 Topiramate [Topamax] 100 mg PO BID 12/11/20 01/03/21 Venlafaxine HCl [Effexor XR] 75 mg PO HS 12/11/20 01/03/21 Vitamin D3 50,000 Units 50,000 units PO Q30D 12/11/20 01/03/21 metFORMIN HCL [Glucophage] 1,000 mg PO BID 12/11/20 01/03/21 oxyCODONE-APAP 7.5-325MG [Percocet 1 tab PO TID 01/03/21 01/03/21 7.5-325 mg] Previous Rx's Medication Instructions Recorded Ibuprofen 800 mg PO Q8HR PRN #30 tablet 08/22/20 Potassium Chloride ER [K-Dur 20] 20 meq PO TID #30 tab.er.prt 12/16/20 Allergies Allergy/AdvReac Type Severity Reaction Status Date / Time cephalexin [From Keflex] Allergy Rash/Hives Verified 01/03/21 17:21 Penicillins Allergy Rash/Hives Verified 01/03/21 17:21 propoxyphene Allergy Rash/Hives Verified 01/03/21 17:21 [From Darvocet-N] Review of Systems ROS Statement: Those systems with pertinent positive or pertinent negative responses have been documented in the HPI. ROS Other: All systems not noted in ROS Statement are negative. Past Medical History Past Medical History: Diabetes Mellitus, GERD/Reflux, Hyperlipidemia, Thyroid Disorder Additional Past Medical History / Comment(s): hx ventral hernia, frequent ut i's,twisted small bowel, HYPOKALEMIA History of Any Multi-Drug Resistant Organisms: None Reported Past Surgical History: Bowel Resection, Section, Cholecystectomy, Hernia Repair, Hysterectomy, Joint Replacement, Orthopedic Surgery Additional Past Surgical History / Comment(s): bilat knees replaced,. thymus gland,. ventral hernia repair w/ mesh. COLONOSCOPY/EGD Past Anesthesia/Blood Transfusion Reactions: No Reported Reaction Additional Past Anesthesia/Blood Transfusion Reaction / Comment(s): no problems with prior blood transfusion in 1994 Past Psychological History: Anxiety, Depression, Panic Disorder, Schizoaffective Disorder Smoking Status: Never smoker Past Alcohol Use History: None Reported Past Drug Use History: None Reported - Past Family History Mother Family Medical History: Cancer Additional Family Medical History / Comment(s): lung Father Family Medical History: Myocardial Infarction ([place]) General Exam General appearance: alert, in no apparent distress, obese Head exam: Present: atraumatic, normocephalic, normal inspection Eye exam: Present: normal appearance, PERRL, EOMI. Absent: scleral icterus, conjunctival injection, periorbital swelling Neck exam: Present: normal inspection Respiratory exam: Present: normal lung sounds bilaterally. Absent: respiratory distress, wheezes, rales, rhonchi, stridor Cardiovascular Exam: Present: regular rate, normal rhythm, normal heart sounds. Absent: systolic murmur, diastolic murmur, rubs, gallop, clicks GI/Abdominal exam: Present: soft, normal bowel sounds. Absent: distended, tenderness, guarding, rebound, rigid Extremities exam: Present: normal inspection, full ROM, normal capillary refill. Absent: tenderness, pedal edema, joint swelling, calf tenderness Neurological exam: Present: alert, oriented X3 Psychiatric exam: Present: normal affect, normal mood Skin exam: Present: warm, dry, intact, normal color. Absent: rash Course Vital Signs 01/17/21 01/17/21 20:23 22:32 Temperature 98.2 F Pulse Rate 110 H 102 H Respiratory 20 20 Rate Blood Pressure 128/75 129/85 O2 Sat by Pulse 95 97 Oximetry Medical Decision Making - Medical Decision Making 50-year-old female with nausea vomiting weakness. Labs, EKG, case monitor, KUB, 1 L normal saline ordered. Labs:White blood cells 15.8, potassium 3.1, 4+ glucose in the urine. 40 mEq of potassium ordered for oral intake. 1.5 L normal saline ordered. Case discussed with Dr. Ellington, patient will be admitted Dr. Lopes was consulted and works at the admit. - Lab Data Result diagrams: 01/17/21 20:58 01/17/21 20:58 Lab Results 01/17/21 01/17/21 01/17/21 Range/Units 20:58 20:58 20:58 WBC 15.8 H (3.8-10.6) k/uL RBC 4.36 (3.80-5.40) m/uL Hgb 13.2 (11.4-16.0) gm/dL Hct 38.8 (34.0-46.0) % MCV 89.0 (80.0-100.0) fL MCH 30.3 (25.0-35.0) pg MCHC 34.1 (31.0-37.0) g/dL RDW 15.8 H (11.5-15.5) % Plt Count 392 (150-450) k/uL MPV 8.2 Neutrophils % 67 % Lymphocytes % 26 % Monocytes % 3 % Eosinophils % 2 % Basophils % 1 % Neutrophils # 10.6 H (1.3-7.7) k/uL Lymphocytes # 4.0 (1.0-4.8) k/uL Monocytes # 0.5 (0-1.0) k/uL Eosinophils # 0.3 (0-0.7) k/uL Basophils # 0.1 (0-0.2) k/uL Hypochromasia Slight Poikilocytosis Slight Sodium 134 L (137-145) mmol/L Potassium 3.1 L (3.5-5.1) mmol/L Chloride 100 (98-107) mmol/L Carbon Dioxide 22 (22-30) mmol/L Anion Gap 12 mmol/L BUN 14 (7-17) mg/dL Creatinine 0.67 (0.52-1.04) mg/dL Est GFR (CKD-EPI)AfAm >90 (>60 ml/min/1.73 sqM) Est GFR (CKD-EPI)NonAf >90 (>60 ml/min/1.73 sqM) Glucose 126 H (74-99) mg/dL Calcium 9.2 (8.4-10.2) mg/dL Magnesium (1.6-2.3) mg/dL Total Bilirubin 0.3 (0.2-1.3) mg/dL AST 33 (14-36) U/L ALT 21 (4-34) U/L Alkaline Phosphatase 127 H (38-126) U/L Total Creatine Kinase (30-135) U/L CK-MB (CK-2) (0.0-2.4) ng/mL CK-MB (CK-2) Rel Index Total Protein 7.1 (6.3-8.2) g/dL Albumin 4.2 (3.5-5.0) g/dL Amylase 43 (30-110) U/L Lipase 114 (23-300) U/L Urine Color Light Yellow Urine Appearance Clear (Clear) Urine pH 7.0 (5.0-8.0) Ur Specific [place] 1.005 (1.001-1.035) Urine Protein Negative (Negative) Urine Glucose (UA) 4+ H (Negative) Urine Ketones Negative (Negative) Urine Blood Negative (Negative) Urine Nitrite Negative (Negative) Urine Bilirubin Negative (Negative) Urine Urobilinogen <2.0 (<2.0) mg/dL Ur Leukocyte Esterase Negative (Negative) 01/17/21 01/17/21 Range/Units 20:58 23:34 WBC (3.8-10.6) k/uL RBC (3.80-5.40) m/uL Hgb (11.4-16.0) gm/dL Hct (34.0-46.0) % MCV (80.0-100.0) fL MCH (25.0-35.0) pg MCHC (31.0-37.0) g/dL RDW (11.5-15.5) % Plt Count (150-450) k/uL MPV Neutrophils % % Lymphocytes % % Monocytes % % Eosinophils % % Basophils % % Neutrophils # (1.3-7.7) k/uL Lymphocytes # (1.0-4.8) k/uL Monocytes # (0-1.0) k/uL Eosinophils # (0-0.7) k/uL Basophils # (0-0.2) k/uL Hypochromasia Poikilocytosis Sodium (137-145) mmol/L Potassium (3.5-5.1) mmol/L Chloride (98-107) mmol/L Carbon Dioxide (22-30) mmol/L Anion Gap mmol/L BUN (7-17) mg/dL Creatinine (0.52-1.04) mg/dL Est GFR (CKD-EPI)AfAm (>60 ml/min/1.73 sqM) Est GFR (CKD-EPI)NonAf (>60 ml/min/1.73 sqM) Glucose (74-99) mg/dL Calcium (8.4-10.2) mg/dL Magnesium 2.1 (1.6-2.3) mg/dL Total Bilirubin (0.2-1.3) mg/dL AST (14-36) U/L ALT (4-34) U/L Alkaline Phosphatase (38-126) U/L Total Creatine Kinase 222 H (30-135) U/L CK-MB (CK-2) 2.4 (0.0-2.4) ng/mL CK-MB (CK-2) Rel Index 1.1 Total Protein (6.3-8.2) g/dL Albumin (3.5-5.0) g/dL Amylase (30-110) U/L Lipase (23-300) U/L Urine Color Urine Appearance (Clear) Urine pH (5.0-8.0) Ur Specific [place] (1.001-1.035) Urine Protein (Negative) Urine Glucose (UA) (Negative) Urine Ketones (Negative) Urine Blood (Negative) Urine Nitrite (Negative) Urine Bilirubin (Negative) Urine Urobilinogen (<2.0) mg/dL Ur Leukocyte Esterase (Negative) - EKG Data -: EKG Interpreted by Me EKG shows normal: sinus rhythm Rate: tachycardia EKG Comments: Ventricular rate 103 bpm, CT interval 156 ms, QRS duration 76 ms, QTC 492 ms, PRT axes 61/51/57. Sinus tachycardia Disposition Clinical Impression: Hyponatremia, Hypokalemia, Leukocytosis Disposition: ADMITTED IP TO THIS HOSP Condition: Stable Is patient prescribed a controlled substance at d/c from ED?: No Referrals: Ramin Lopes MD [Primary Care Provider] - 1-2 days Time of Disposition: 01:34
[2021-01-18 01:12] LABS: Creatine Kinase MB 2.4 ng/mL (0.0-2.4)
[2021-01-18] MEDS ORDERED: NALOXONE 0.4 MG/ML 1 ML VIAL IV PRN (01:35)
[2021-01-18] MEDS: SODIUM CHLORIDE 0.9% 1,000 ML IV SCH ×3 (03:57→20:08)
[2021-01-18 16:39] LABS: Basophils # (A) 0.1 k/uL (0-0.2); Basophils % (A) 1 %; Eosinophils # (A) 0.3 k/uL (0-0.7); Eosinophils % (A) 2 %; HCT 38.5 % (34.0-46.0); HGB 12.6 gm/dL (11.4-16.0); Hypochromasia Slight; Lymphocytes # (A) 2.3 k/uL (1.0-4.8); Lymphocytes % (A) 20 %; MCHC 32.8 g/dL (31.0-37.0); MCV 91.4 fL (80.0-100.0); Mean Platelet Volume 8.3; Monocytes # (A) 0.5 k/uL (0-1.0); Monocytes % (A) 4 %; Neutrophils # (A) 8.6 k/uL (1.3-7.7); Neutrophils % (A) 72 %; Platelet Count 324 k/uL (150-450); RBC 4.22 m/uL (3.80-5.40); RDW 14.8 % (11.5-15.5); WBC 11.9 k/uL (3.8-10.6)
[2021-01-18] MEDS: POTASSIUM CHLORIDE ER 20 MEQ TAB.ER PO SCH ×2 (16:47→21:23)
[2021-01-18 16:50] LABS: ALT 21 U/L (4-34); AST 40 U/L (14-36); African American GFR (CKD) >90 (>60 ml/min/1.73 sqM); Albumin 3.7 g/dL (3.5-5.0); Albumin/Globulin Ratio 1.3; Alkaline Phosphatase 101 U/L (38-126); Anion Gap 10 mmol/L; Blood Urea Nitrogen 14 mg/dL (7-17); Calcium 8.6 mg/dL (8.4-10.2); Carbon Dioxide 19 mmol/L (22-30); Chloride 107 mmol/L (98-107); Globulin 2.8 g/dL; Glucose 198 mg/dL (74-99); Non-African American GFR(CKD) 81 (>60 ml/min/1.73 sqM); Potassium 3.9 mmol/L (3.5-5.1); Sodium 136 mmol/L (137-145); Total Bilirubin 0.3 mg/dL (0.2-1.3); Total Protein 6.5 g/dL (6.3-8.2)
[2021-01-18 17:13] LABS: Glucose,Whole Blood 201 mg/dL (75-99)
[2021-01-18] MEDS: ONDANSETRON 4 MG TAB PO PRN ×2 (17:47→22:08)
[2021-01-18] MEDS: INSULIN ASPART (NovoLOG) 100 UNIT/ML VIAL SQ SCH (18:12)
--- NOTE | 2021-01-18 18:31 | HP ---
HISTORY AND PHYSICAL DATE OF ADMISSION: 01/18/2021 CHIEF COMPLAINT: Nausea and vomiting with diarrhea and hypokalemia. HISTORY OF PRESENT ILLNESS: This is another admission for this 50-year-old white female with insulin-dependent diabetes mellitus. She has been having a lot of trouble with edema and we have been trying to manage this with diuretics, and she repeatedly becomes hypokalemic. She is currently on Aldactazide and her potassium has been staying up. However, she developed likely gastroenteritis with nausea, vomiting and diarrhea and came to the emergency room. Potassium was 3.1. She was unable to keep anything down. REVIEW OF SYSTEMS: She denies any abdominal pain, hematemesis, melena, hematochezia, urinary complaints, etc. Past medical history, family history, and personal and social histories are all unremarkable and noncontributory and otherwise unchanged since her recent admission. She is ALLERGIC to CYMBALTA, WELLBUTRIN AND KEFLEX. She is on Flexeril, Aldactazide, potassium, oxycodone for pain, vitamin D3, topiramate, venlafaxine, Jardiance, aspirin, metformin, fenofibrate, atorvastatin, Lantus as well as omeprazole. The remainder of her history is unremarkable. PHYSICAL EXAMINATION: Blood pressure is 110/62 with a pulse of 114, respirations 21. She is afebrile. In general she appeared to be overweight, in no acute distress. She was slightly pale. Head, ears, eyes, nose, mouth and throat were normal except for dry mucous membranes in the mouth. Neck was supple. Chest was clear. Cardiac exam demonstrated tachycardia. The abdomen was protuberant, soft and nontender without any masses or visceromegaly. Bowel sounds were present. She is admitted to the hospital with the diagnoses: 1. Viral gastroenteritis with intractable diarrhea, nausea and vomiting. 2. Dehydration. 3. Hypokalemia. 4. Insulin-dependent diabetes mellitus. PLAN: 1. Bedrest. 2. IV fluids. 3. Correct hypokalemia. 4. Resolve vomiting and diarrhea. MMODL / MARGIN: [id number] /
[2021-01-18 20:52] LABS: Glucose,Whole Blood 189 mg/dL (75-99)
[2021-01-18] MEDS: TOPIRAMATE 100 MG TAB PO SCH (21:23)
[2021-01-19] MEDS: SODIUM CHLORIDE 0.9% 1,000 ML IV SCH ×4 (01:37→23:37)
[2021-01-19] MEDS: LEVOTHYROXINE 75 MCG TAB PO SCH (06:10)
[2021-01-19 07:26] LABS: Glucose,Whole Blood 163 mg/dL (75-99)
[2021-01-19] MEDS: TOPIRAMATE 100 MG TAB PO SCH ×2 (09:22→21:34)
[2021-01-19] MEDS: PALIPERIDONE 3 MG TAB.ER.24 PO SCH (09:22)
[2021-01-19] MEDS: ASPIRIN 81 MG PO SCH (09:23)
[2021-01-19] MEDS: PANTOPRAZOLE 40 MG TABLET PO SCH (09:23)
[2021-01-19] MEDS: INSULIN ASPART (NovoLOG) 100 UNIT/ML VIAL SQ SCH ×3 (09:23→18:09)
[2021-01-19] MEDS: POTASSIUM CHLORIDE ER 20 MEQ TAB.ER PO SCH ×3 (09:23→21:34)
[2021-01-19] MEDS: NON FORMULARY DRUG (Empagliflozin [Jardiance] 25 MG Tablet) PO SCH (09:27)
[2021-01-19] MEDS: ONDANSETRON 4 MG TAB PO PRN ×3 (10:00→19:06)
[2021-01-19] MEDS: guaiFENesin-Coden 100-10MG/5ML 10 ML CUP PO PRN ×3 (10:02→21:37)
--- NOTE | 2021-01-19 10:45 | PN ---
PROGRESS NOTE CHIEF COMPLAINT: Gastroenteritis with nausea and vomiting. HISTORY OF PRESENT ILLNESS: This lady is still nauseated, but she has not had any diarrhea any longer. She does have a cough. When she became ill, she had chills and fever and this is all compatible with viral gastroenteritis. Potassium is back up to normal. PHYSICAL EXAMINATION: Chest is clear. Cardiac exam is normal. Abdomen is protuberant, soft and nontender. IMPRESSION: 1. Viral gastroenteritis. 2. Hypokalemia. 3. Bronchitis. 4. Type 2 diabetes. 5. Obesity. PLAN: 1. Add Robitussin AC. 2. Increase diet and activity. 3. Probably home tomorrow if the nausea is gone. MMODL / IJN: [id number] /
[2021-01-19 11:58] LABS: Glucose,Whole Blood 180 mg/dL (75-99)
[2021-01-19 17:14] LABS: Glucose,Whole Blood 183 mg/dL (75-99)
[2021-01-19 20:31] LABS: Glucose,Whole Blood 231 mg/dL (75-99)
[2021-01-19] MEDS ORDERED: VENLAFAXINE HCL ER 75 MG CAP PO SCH (21:00)
[2021-01-20 02:46] VITALS: PULSE 95
[2021-01-20] MEDS: LEVOTHYROXINE 75 MCG TAB PO SCH (05:43)
[2021-01-20 07:39] LABS: Glucose,Whole Blood 209 mg/dL (75-99)
[2021-01-20 08:25] VITALS: BP 101/62; RESP 16; TEMP 97.3
[2021-01-20] MEDS: PANTOPRAZOLE 40 MG TABLET PO SCH (08:45)
[2021-01-20] MEDS: ASPIRIN 81 MG PO SCH (08:45)
[2021-01-20] MEDS: TOPIRAMATE 100 MG TAB PO SCH (08:45)
[2021-01-20] MEDS: POTASSIUM CHLORIDE ER 20 MEQ TAB.ER PO SCH (08:45)
[2021-01-20] MEDS: PALIPERIDONE 3 MG TAB.ER.24 PO SCH (08:45)
[2021-01-20] MEDS: INSULIN ASPART (NovoLOG) 100 UNIT/ML VIAL SQ SCH ×2 (08:46→13:32)
[2021-01-20] MEDS: guaiFENesin-Coden 100-10MG/5ML 10 ML CUP PO PRN (08:50)
[2021-01-20] MEDS: ONDANSETRON 4 MG TAB PO PRN (09:37)
[2021-01-20 11:54] LABS: Glucose,Whole Blood 236 mg/dL (75-99)
[2021-01-20] MEDS: NON FORMULARY DRUG (Empagliflozin [Jardiance] 25 MG Tablet) PO SCH (13:33)
--- NOTE | 2021-01-20 20:49 | DS ---
DISCHARGE SUMMARY CHIEF COMPLAINT: Nausea, vomiting, diarrhea and dehydration with hypokalemia. HISTORY OF PRESENT ILLNESS AND PHYSICAL EXAMINATION: Details of this lady's history and physical can be found in the initial workup. COURSE IN THE HOSPITAL: After admission she was placed on bedrest, started on intravenous fluids and she was rehydrated. Nausea and vomiting stopped as well as the diarrhea. Potassium was brought up to normal. She was doing well and it was felt that she could go home on 01/20. She will go home on light activity about the house and her regular diet and medication. She will be followed up the day after discharge. FINAL DIAGNOSIS: 1. Gastroenteritis with nausea, vomiting and diarrhea. 2. Dehydration. 3. Hypokalemia. 4. Insulin-dependent diabetes mellitus. OPERATIONS: None. CONSULTATIONS: None. She is improved. TONO / FELIZ: [id number] /
== END 2021-01-20 15:10 | disposition home or self-care (01) ==
LOC: EC 20:11 → 6NMEDSUR 01-18 03:32
PROVIDERS: ADMIT Family Medicine; ATTEND Family Medicine
DX: A08.4 Viral intestinal infection, unspecified (principal); E86.0 Dehydration; E87.1 Hypo-osmolality and hyponatremia; E87.6 Hypokalemia; E11.9 Type 2 diabetes mellitus without complications; J40 Bronchitis, not specified as acute or chronic; R00.0 Tachycardia, unspecified; E66.9 Obesity, unspecified; E78.5 Hyperlipidemia, unspecified; Z68.42 Body mass index [BMI] 45.0-49.9, adult; F41.0 Panic disorder [episodic paroxysmal anxiety]; F25.9 Schizoaffective disorder, unspecified; F41.8 Other specified anxiety disorders; Z79.82 Long term (current) use of aspirin; Z88.0 Allergy status to penicillin; Z79.4 Long term (current) use of insulin; Z79.890 Hormone replacement therapy; Z79.899 Other long term (current) drug therapy; Z88.5 Allergy status to narcotic agent; Z88.1 Allergy status to other antibiotic agents; Z88.8 Allergy status to other drugs, medicaments and biological substances; Z96.653 Presence of artificial knee joint, bilateral; Z90.49 Acquired absence of other specified parts of digestive tract; Z90.710 Acquired absence of both cervix and uterus; Z87.440 Personal history of urinary (tract) infections; Z80.1 Family history of malignant neoplasm of trachea, bronchus and lung; Z82.49 Family history of ischemic heart disease and other diseases of the circulatory system
CPT/HCPCS: 99285; 96361 ×3; 96374; 36415; 93005; 80053 ×2; 82150; 82550; 82553; 83690; 83735; 85025 ×2; 81003; 83036; 74018; G0378 ×4; J2405

== ENCOUNTER 2021-02-09 19:16 | Emergency (ER) | payer OTHER ==
[2021-02-09 19:22] VITALS: TEMP 98.7
[2021-02-09 20:04] LABS: Basophils # (A) 0.1 k/uL (0-0.2); Basophils % (A) 1 %; Eosinophils # (A) 0.5 k/uL (0-0.7); Eosinophils % (A) 4 %; HCT 41.5 % (34.0-46.0); HGB 14.1 gm/dL (11.4-16.0); Lymphocytes % (A) 34 %; MCH 29.3 pg (25.0-35.0); Mean Platelet Volume 8.7; Monocytes # (A) 0.5 k/uL (0-1.0); Monocytes % (A) 3 %; Neutrophils # (A) 8.3 k/uL (1.3-7.7); Neutrophils % (A) 57 %; Platelet Count 372 k/uL (150-450); RDW 14.4 % (11.5-15.5); WBC 14.6 k/uL (3.8-10.6)
[2021-02-09 20:09] LABS: MCV 86.3 fL (80.0-100.0)
[2021-02-09 20:14] LABS: INR 0.9 (<1.2); Partial Thromboplastin Time 22.3 sec (22.0-30.0); Prothrombin Time 10.1 sec (9.0-12.0)
[2021-02-09 20:19] LABS: ALT 23 U/L (4-34); AST 59 U/L (14-36); African American GFR (CKD) >90 (>60 ml/min/1.73 sqM); Albumin 4.5 g/dL (3.5-5.0); Alkaline Phosphatase 163 U/L (38-126); Anion Gap 15 mmol/L; Blood Urea Nitrogen 13 mg/dL (7-17); Calcium 10.8 mg/dL (8.4-10.2); Carbon Dioxide 24 mmol/L (22-30); Chloride 97 mmol/L (98-107); Glucose 161 mg/dL (74-99); Magnesium 1.8 mg/dL (1.6-2.3); Non-African American GFR(CKD) >90 (>60 ml/min/1.73 sqM); Potassium 3.7 mmol/L (3.5-5.1); Sodium 136 mmol/L (137-145); Total Bilirubin 0.4 mg/dL (0.2-1.3); Total Protein 7.5 g/dL (6.3-8.2)
[2021-02-09 21:47] LABS: Amorphous Sediment,Urine Moderate /hpf; Appearance,Urine Cloudy (Clear); Bilirubin,Urine Negative (Negative); Blood,Urine Negative (Negative); Budding Yeast,Urine Many /hpf; Color,Urine Light Yellow; Glucose,Urine (UA) 4+ (Negative); Ketones,Urine Negative (Negative); Leukocyte Esterase,Urine Negative (Negative); Mucus,Urine Rare /hpf; Nitrite,Urine Negative (Negative); Protein,Urine Negative (Negative); Specific Gravity,Urine 1.019 (1.001-1.035); Squamous Epithelial Cell,Urine <1 /hpf (0-4); Urobilinogen,Urine <2.0 mg/dL (<2.0); WBC,Urine 4 /hpf (0-5)
--- NOTE | 2021-02-09 22:01 | ED ---
Recheck HPI - General Chief Complaint: Recheck/Abnormal Lab/Rx Stated Complaint: low potassium Time Seen by Provider: 02/09/21 21:06 Source: patient, EMS Mode of arrival: EMS Limitations: no limitations - History of Present Illness Initial Comments: 50 year-old female patient presents to the emergency department for evaluation of weakness and not feeling well. States that she has been nauseated and had one episode of vomiting today. States that when she feels like this generally her potassium is low. She denies any fever or chills. Denies numbness, tingling, or focal weakness to her extremities. Denies cough or congestion. Denies chest, neck, or jaw pain. Denies hematuria, dysuria, urinary urgency, or urinary frequency. States she has been able to eat and drink today. Patient denies any recent rash, cough, shortness of breath, abdominal pain, diarrhea, constipation, back pain, numbness, tingling, dizziness, weakness, headache, visual changes, or any other complaints. - Related Data Home Medications Medication Instructions Recorded Confirmed Omeprazole [PriLOSEC] 20 mg PO DAILY 01/12/19 02/09/21 Aspirin [Adult Low Dose Aspirin EC] 81 mg PO DAILY 11/10/19 02/09/21 Atorvastatin [Lipitor] 80 mg PO DAILY 11/10/19 02/09/21 Fenofibrate 160 mg PO DAILY 11/10/19 02/09/21 Levothyroxine Sodium [Synthroid] 150 mcg PO DAILY 11/10/19 02/09/21 Insulin Glargine,Hum.rec.anlog 100 unit SQ DAILY 05/14/20 02/09/21 [Lantus Solostar Pen] Cyclobenzaprine [Flexeril] 10 mg PO TID PRN 07/10/20 02/09/21 Empagliflozin [Jardiance] 25 mg PO DAILY 12/11/20 02/09/21 INSULIN ASPART (NovoLOG) [NovoLOG 14 unit SQ AC-TID 12/11/20 02/09/21 (formulary)] Paliperidone [Paliperidone ER] 9 mg PO DAILY 12/11/20 02/09/21 Topiramate [Topamax] 100 mg PO BID 12/11/20 02/09/21 Venlafaxine HCl [Effexor XR] 75 mg PO HS 12/11/20 02/09/21 Vitamin D3 50,000 Units 1,250 mcg PO Q30D 12/11/20 02/09/21 metFORMIN HCL [Glucophage] 1,000 mg PO BID 12/11/20 02/09/21 oxyCODONE-APAP 7.5-325MG [Percocet 1 tab PO TID 01/03/21 02/09/21 7.5-325 mg] Docusate [Colace] 100 mg PO BID 01/18/21 02/09/21 Ondansetron HCl [Zofran] 4 mg PO Q4H PRN 01/18/21 02/09/21 Spironolactone-Hctz 25-25Mg 1 tab PO DAILY 01/18/21 02/09/21 [Aldactazide 25-25 MG] Triamterene/Hydrochlorothiazid 1 tab PO BID 02/09/21 02/09/21 [Triamterene-Hctz 37.5-25 mg Tb] Previous Rx's Medication Instructions Recorded Potassium Chloride ER [K-Dur 20] 20 meq PO TID #30 tab.er.prt 12/16/20 Allergies Allergy/AdvReac Type Severity Reaction Status Date / Time cephalexin [From Keflex] Allergy Rash/Hives Verified 02/09/21 21:59 Penicillins Allergy Rash/Hives Verified 02/09/21 21:59 propoxyphene Allergy Rash/Hives Verified 02/09/21 21:59 [From Darvocet-N] Review of Systems ROS Statement: Those systems with pertinent positive or pertinent negative responses have been documented in the HPI. ROS Other: All systems not noted in ROS Statement are negative. Past Medical History Past Medical History: Diabetes Mellitus, GERD/Reflux, Hyperlipidemia, Thyroid Disorder Additional Past Medical History / Comment(s): hx ventral hernia, frequent uti's,twisted small bowel, HYPOKALEMIA History of Any Multi-Drug Resistant Organisms: None Reported Past Surgical History: Bowel Resection, Section, Cholecystectomy, Hernia Repair, Hysterectomy, Joint Replacement, Orthopedic Surgery Additional Past Surgical History / Comment(s): bilat knees replaced,. thymus gland,. ventral hernia repair w/ mesh. COLONOSCOPY/EGD Past Anesthesia/Blood Transfusion Reactions: No Reported Reaction Additional Past Anesthesia/Blood Transfusion Reaction / Comment(s): no problems with prior blood transfusion in 1994 Past Psychological History: Anxiety, Depression, Panic Disorder, Schizoaffective Disorder Smoking Status: Never smoker Past Alcohol Use History: None Reported Past Drug Use History: None Reported - Past Family History Mother Family Medical History: Cancer Additional Family Medical History / Comment(s): lung Father Family Medical History: Diabetes Mellitus, Myocardial Infarction ([place]) General Exam Limitations: no limitations General appearance: alert, in no apparent distress, other (This is a well-developed, well-nourished adult female patient in no acute distress. Vital signs upon presentation temperature 98.7F, pulse 106, respirations 20, blood pressure 122/86, pulse ox 96% on room air.) Eye exam: Present: normal appearance, PERRL, EOMI. Absent: scleral icterus, conjunctival injection, periorbital swelling ENT exam: Present: normal exam, normal oropharynx, mucous membranes moist Respiratory exam: Present: normal lung sounds bilaterally. Absent: respiratory distress, wheezes, rales, rhonchi, stridor Cardiovascular Exam: Present: regular rate, normal rhythm, normal heart sounds. Absent: systolic murmur, diastolic murmur, rubs, gallop, clicks GI/Abdominal exam: Present: soft, normal bowel sounds. Absent: distended, tenderness, guarding, rebound, rigid Neurological exam: Present: alert, oriented X3, CN II-XII intact, other (Strength in all 4 extremities is 5/5.) Psychiatric exam: Present: normal affect, normal mood Skin exam: Present: warm, dry, intact, normal color. Absent: rash Course Vital Signs 02/09/21 02/09/21 19:19 22:31 Temperature 98.7 F 98.7 F Pulse Rate 106 H 99 Respiratory 20 16 Rate Blood Pressure 122/86 104/71 O2 Sat by Pulse 96 97 Oximetry Medical Decision Making - Medical Decision Making 50-year-old male patient presents to the emergency department today for evaluation of not feeling well. She reports generalized weakness nausea with one episode of vomiting. Labs reviewed and did reveal white blood cell count of 14.6 likely reactive from vomiting. Sodium was 136. Glucose 161, AST 59, alk phos 163. Troponin is negative. Urinalysis shows no sign of infection. There was 4+ glucose. I did offer Covid testing, she declined. She will be discharged home to follow-up with her primary care physician for recheck in 1-2 days. Return parameters were discussed in detail. She verbalizes understanding and agrees with this plan. Case discussed with my attending Dr. Arreola. - Lab Data Result diagrams: 02/09/21 19:26 02/09/21 19:26 Lab Results 02/09/21 02/09/21 02/09/21 Range/Units 19:26 19:26 19:26 WBC 14.6 H (3.8-10.6) k/uL RBC 4.80 (3.80-5.40) m/uL Hgb 14.1 (11.4-16.0) gm/dL Hct 41.5 (34.0-46.0) % MCV 86.3 D (80.0-100.0) fL MCH 29.3 (25.0-35.0) pg MCHC 34.0 (31.0-37.0) g/dL RDW 14.4 (11.5-15.5) % Plt Count 372 (150-450) k/uL MPV 8.7 Neutrophils % 57 % Lymphocytes % 34 % Monocytes % 3 % Eosinophils % 4 % Basophils % 1 % Neutrophils # 8.3 H (1.3-7.7) k/uL Lymphocytes # 5.0 H (1.0-4.8) k/uL Monocytes # 0.5 (0-1.0) k/uL Eosinophils # 0.5 (0-0.7) k/uL Basophils # 0.1 (0-0.2) k/uL PT 10.1 (9.0-12.0) sec INR 0.9 (<1.2) APTT 22.3 (22.0-30.0) sec Sodium 136 L (137-145) mmol/L Potassium 3.7 (3.5-5.1) mmol/L Chloride 97 L (98-107) mmol/L Carbon Dioxide 24 (22-30) mmol/L Anion Gap 15 mmol/L BUN 13 (7-17) mg/dL Creatinine 0.68 (0.52-1.04) mg/dL Est GFR (CKD-EPI)AfAm >90 (>60 ml/min/1.73 sqM) Est GFR (CKD-EPI)NonAf >90 (>60 ml/min/1.73 sqM) Glucose 161 H (74-99) mg/dL Calcium 10.8 H (8.4-10.2) mg/dL Magnesium 1.8 (1.6-2.3) mg/dL Total Bilirubin 0.4 (0.2-1.3) mg/dL AST 59 H (14-36) U/L ALT 23 (4-34) U/L Alkaline Phosphatase 163 H (38-126) U/L Troponin I (0.000-0.034) ng/mL Total Protein 7.5 (6.3-8.2) g/dL Albumin 4.5 (3.5-5.0) g/dL Urine Color Urine Appearance (Clear) Urine pH (5.0-8.0) Ur Specific [place] (1.001-1.035) Urine Protein (Negative) Urine Glucose (UA) (Negative) Urine Ketones (Negative) Urine Blood (Negative) Urine Nitrite (Negative) Urine Bilirubin (Negative) Urine Urobilinogen (<2.0) mg/dL Ur Leukocyte Esterase (Negative) Urine WBC (0-5) /hpf Ur Squamous Epith Cells (0-4) /hpf Amorphous Sediment (None) /hpf Urine Mucus (None) /hpf Urine Yeast (Budding) (None) /hpf 02/09/21 02/09/21 Range/Units 19:26 21:25 WBC (3.8-10.6) k/uL RBC (3.80-5.40) m/uL Hgb (11.4-16.0) gm/dL Hct (34.0-46.0) % MCV (80.0-100.0) fL MCH (25.0-35.0) pg MCHC (31.0-37.0) g/dL RDW (11.5-15.5) % Plt Count (150-450) k/uL MPV Neutrophils % % Lymphocytes % % Monocytes % % Eosinophils % % Basophils % % Neutrophils # (1.3-7.7) k/uL Lymphocytes # (1.0-4.8) k/uL Monocytes # (0-1.0) k/uL Eosinophils # (0-0.7) k/uL Basophils # (0-0.2) k/uL PT (9.0-12.0) sec INR (<1.2) APTT (22.0-30.0) sec Sodium (137-145) mmol/L Potassium (3.5-5.1) mmol/L Chloride (98-107) mmol/L Carbon Dioxide (22-30) mmol/L Anion Gap mmol/L BUN (7-17) mg/dL Creatinine (0.52-1.04) mg/dL Est GFR (CKD-EPI)AfAm (>60 ml/min/1.73 sqM) Est GFR (CKD-EPI)NonAf (>60 ml/min/1.73 sqM) Glucose (74-99) mg/dL Calcium (8.4-10.2) mg/dL Magnesium (1.6-2.3) mg/dL Total Bilirubin (0.2-1.3) mg/dL AST (14-36) U/L ALT (4-34) U/L Alkaline Phosphatase (38-126) U/L Troponin I <0.012 (0.000-0.034) ng/mL Total Protein (6.3-8.2) g/dL Albumin (3.5-5.0) g/dL Urine Color Light Yellow Urine Appearance Cloudy H (Clear) Urine pH 7.0 (5.0-8.0) Ur Specific [place] 1.019 (1.001-1.035) Urine Protein Negative (Negative) Urine Glucose (UA) 4+ H (Negative) Urine Ketones Negative (Negative) Urine Blood Negative (Negative) Urine Nitrite Negative (Negative) Urine Bilirubin Negative (Negative) Urine Urobilinogen <2.0 (<2.0) mg/dL Ur Leukocyte Esterase Negative (Negative) Urine WBC 4 (0-5) /hpf Ur Squamous Epith Cells <1 (0-4) /hpf Amorphous Sediment Moderate H (None) /hpf Urine Mucus Rare H (None) /hpf Urine Yeast (Budding) Many H (None) /hpf - EKG Data -: EKG Interpreted by Me EKG Comments: EKG obtained at 1944 shows sinus tachycardia with a ventricular rate of 107, [place] interval 144, QRS duration 74, QT 348, QTC 464. No evidence of ST elevation or depression. Disposition Clinical Impression: Feeling unwell, Nausea Disposition: HOME SELF-CARE Condition: Good Instructions (If sedation given, give patient instructions): Acute Nausea and Vomiting (ED), Weakness (ED) Additional Instructions: Take medication as directed. Follow-up with the primary care physician for recheck in 1-2 days. Return for any new, worsening, or concerning symptoms. Is patient prescribed a controlled substance at d/c from ED?: No Referrals: Ramin Lopes MD [Primary Care Provider] - 1-2 days Time of Disposition: 22:11
[2021-02-09] MEDS ORDERED: ONDANSETRON 4 MG ODT STARTER PACK 2 TAB BTL PO STA (22:11)
[2021-02-09 22:35] VITALS: BP 104/71; PULSE 99; RESP 16
[2021-02-09] MEDS ORDERED: METOCLOPRAMIDE 10 MG TAB PO STA (22:36)
== END 2021-02-09 22:45 | disposition home or self-care (01) ==
LOC: EC 19:16
DX: R11.0 Nausea (principal); R53.81 Other malaise; E11.9 Type 2 diabetes mellitus without complications; K21.9 Gastro-esophageal reflux disease without esophagitis; E78.5 Hyperlipidemia, unspecified; E07.9 Disorder of thyroid, unspecified; F41.9 Anxiety disorder, unspecified; F32.9 Major depressive disorder, single episode, unspecified; F25.9 Schizoaffective disorder, unspecified; Z79.82 Long term (current) use of aspirin; Z79.4 Long term (current) use of insulin; Z88.0 Allergy status to penicillin; Z88.1 Allergy status to other antibiotic agents; Z87.440 Personal history of urinary (tract) infections; Z90.49 Acquired absence of other specified parts of digestive tract; Z90.710 Acquired absence of both cervix and uterus; Z96.653 Presence of artificial knee joint, bilateral
CPT/HCPCS: 36415; 80053; 81001; 83735; 84484; 85025; 85610; 85730; 99285

== ENCOUNTER 2021-03-10 21:27 | Emergency (ER) | payer OTHER ==
[2021-03-10 22:45] VITALS: BP 115/71; PULSE 104; RESP 22; TEMP 99
[2021-03-10 23:21] LABS: Amorphous Sediment,Urine Rare /hpf; Appearance,Urine Clear (Clear); Bacteria,Urine Moderate /hpf; Bilirubin,Urine Negative (Negative); Blood,Urine Negative (Negative); Color,Urine Light Yellow; Glucose,Urine (UA) 4+ (Negative); Ketones,Urine Negative (Negative); Leukocyte Esterase,Urine Trace (Negative); Nitrite,Urine Positive (Negative); Protein,Urine Negative (Negative); RBC,Urine 1 /hpf (0-5); Squamous Epithelial Cell,Urine 2 /hpf (0-4); Urobilinogen,Urine <2.0 mg/dL (<2.0); WBC,Urine 16 /hpf (0-5)
[2021-03-10] MEDS ORDERED: SODIUM CHLORIDE 0.9% 1,000 ML IV STA (23:52)
[2021-03-10] MEDS ORDERED: ONDANSETRON 4 MG/2 ML VIAL IVP STA (23:52)
[2021-03-10] MEDS ORDERED: MORPHINE SULFATE 4 MG/ML SYRINGE IV STA (23:52)
[2021-03-11 00:23] LABS: Basophils # (A) 0.1 k/uL (0-0.2); Basophils % (A) 1 %; Eosinophils # (A) 0.4 k/uL (0-0.7); Eosinophils % (A) 3 %; HCT 40.3 % (34.0-46.0); HGB 13.7 gm/dL (11.4-16.0); Lymphocytes # (A) 4.2 k/uL (1.0-4.8); Lymphocytes % (A) 33 %; MCH 28.2 pg (25.0-35.0); Mean Platelet Volume 8.8; Monocytes # (A) 0.5 k/uL (0-1.0); Monocytes % (A) 4 %; Neutrophils # (A) 7.1 k/uL (1.3-7.7); Neutrophils % (A) 57 %; Platelet Count 356 k/uL (150-450); Poikilocytosis Slight; RBC 4.86 m/uL (3.80-5.40); RDW 15.6 % (11.5-15.5); WBC 12.5 k/uL (3.8-10.6)
[2021-03-11 00:34] LABS: INR 0.9 (<1.2); Partial Thromboplastin Time 21.9 sec (22.0-30.0); Prothrombin Time 9.9 sec (9.0-12.0)
[2021-03-11 00:41] LABS: ALT 22 U/L (4-34); AST 29 U/L (14-36); African American GFR (CKD) >90 (>60 ml/min/1.73 sqM); Albumin 4.3 g/dL (3.5-5.0); Alkaline Phosphatase 158 U/L (38-126); Amylase 42 U/L (30-110); Anion Gap 13 mmol/L; Blood Urea Nitrogen 16 mg/dL (7-17); Calcium 9.4 mg/dL (8.4-10.2); Carbon Dioxide 28 mmol/L (22-30); Glucose 203 mg/dL (74-99); Lipase 317 U/L (23-300); Non-African American GFR(CKD) 84 (>60 ml/min/1.73 sqM); Potassium 3.2 mmol/L (3.5-5.1); Sodium 136 mmol/L (137-145); Total Bilirubin 0.4 mg/dL (0.2-1.3); Total Protein 7.2 g/dL (6.3-8.2)
[2021-03-11 00:45] LABS: Chloride 95 mmol/L (98-107)
--- NOTE | 2021-03-11 02:49 | ED ---
Abdominal Pain HPI - General Chief Complaint: Abdominal Pain Stated Complaint: Stomach Pain, Nausea Time Seen by Provider: 03/10/21 23:33 Source: patient, family, RN notes reviewed, old records reviewed Mode of arrival: ambulatory Limitations: no limitations - History of Present Illness Initial Comments: Patient is a 50-year-old female with history of diabetes, thyroid disorder, bowel resection, presenting to the emergency Department with complaints of diffuse abdominal pain that worsened tonight. She admits to pressure and pain of her lower abdomen up to her belly button area. She has been having bowel movements, last one was yesterday however was constipated in nature. She does admit to nausea, no vomiting. She denies any fevers or chills, no chest pain or shortness of breath. She states her pain is a 10 out of 10. Patient has history of small bowel resection, , cholecystectomy, hysterectomy. Her vitals are stable upon arrival. She has no further complaints. - Related Data Home Medications Medication Instructions Recorded Confirmed Omeprazole [PriLOSEC] 20 mg PO DAILY 01/12/19 02/09/21 Aspirin [Adult Low Dose Aspirin EC] 81 mg PO DAILY 11/10/19 02/09/21 Atorvastatin [Lipitor] 80 mg PO DAILY 11/10/19 02/09/21 Fenofibrate 160 mg PO DAILY 11/10/19 02/09/21 Levothyroxine Sodium [Synthroid] 150 mcg PO DAILY 11/10/19 02/09/21 Insulin Glargine,Hum.rec.anlog 100 unit SQ DAILY 05/14/20 02/09/21 [Lantus Solostar Pen] Cyclobenzaprine [Flexeril] 10 mg PO TID PRN 07/10/20 02/09/21 Empagliflozin [Jardiance] 25 mg PO DAILY 12/11/20 02/09/21 INSULIN ASPART (NovoLOG) [NovoLOG 14 unit SQ AC-TID 12/11/20 02/09/21 (formulary)] Paliperidone [Paliperidone ER] 9 mg PO DAILY 12/11/20 02/09/21 Topiramate [Topamax] 100 mg PO BID 12/11/20 02/09/21 Venlafaxine HCl [Effexor XR] 75 mg PO HS 12/11/20 02/09/21 Vitamin D3 50,000 Units 1,250 mcg PO Q30D 12/11/20 02/09/21 metFORMIN HCL [Glucophage] 1,000 mg PO BID 12/11/20 02/09/21 oxyCODONE-APAP 7.5-325MG [Percocet 1 tab PO TID 01/03/21 02/09/21 7.5-325 mg] Docusate [Colace] 100 mg PO BID 01/18/21 02/09/21 Ondansetron HCl [Zofran] 4 mg PO Q4H PRN 01/18/21 02/09/21 Spironolactone-Hctz 25-25Mg 1 tab PO DAILY 01/18/21 02/09/21 [Aldactazide 25-25 MG] Triamterene/Hydrochlorothiazid 1 tab PO BID 02/09/21 02/09/21 [Triamterene-Hctz 37.5-25 mg Tb] Previous Rx's Medication Instructions Recorded Potassium Chloride ER [K-Dur 20] 20 meq PO TID #30 tab.er.prt 12/16/20 Metoclopramide [Reglan] 10 mg PO Q8H PRN #10 tab 02/10/21 Polyethylene Glycol 3350 [Miralax] 17 gm PO DAILY PRN #527 gm 03/11/21 Sulfamethox-Tmp 800-160Mg [Bactrim 1 each PO Q12HR 5 Days #10 tab 03/11/21 Ds] Allergies Allergy/AdvReac Type Severity Reaction Status Date / Time cephalexin [From Keflex] Allergy Rash/Hives Verified 03/10/21 22:45 Penicillins Allergy Rash/Hives Verified 03/10/21 22:45 propoxyphene Allergy Rash/Hives Verified 03/10/21 22:45 [From Darvocet-N] Review of Systems ROS Statement: Those systems with pertinent positive or pertinent negative responses have been documented in the HPI. ROS Other: All systems not noted in ROS Statement are negative. Past Medical History Past Medical History: Diabetes Mellitus, GERD/Reflux, Hyperlipidemia, Thyroid Disorder Additional Past Medical History / Comment(s): hx ventral hernia, frequent uti's,twisted small bowel, HYPOKALEMIA History of Any Multi-Drug Resistant Organisms: None Reported Past Surgical History: Bowel Resection, Section, Cholecystectomy, Hernia Repair, Hysterectomy, Joint Replacement, Orthopedic Surgery Additional Past Surgical History / Comment(s): bilat knees replaced,. thymus gland,. ventral hernia repair w/ mesh. COLONOSCOPY/EGD Past Anesthesia/Blood Transfusion Reactions: No Reported Reaction Additional Past Anesthesia/Blood Transfusion Reaction / Comment(s): no problems with prior blood transfusion in 1994 Past Psychological History: Anxiety, Depression, Panic Disorder, Schizoaffective Disorder Smoking Status: Never smoker Past Alcohol Use History: None Reported Past Drug Use History: None Reported - Past Family History Mother Family Medical History: Cancer Additional Family Medical History / Comment(s): lung Father Family Medical History: Diabetes Mellitus, Myocardial Infarction ([place]) General Exam - General Exam Comments Initial Comments: GENERAL: Patient is well-developed and well-nourished. Patient is nontoxic and in no acute distress. HEAD: Atraumatic, normocephalic. EYES: Pupils equal round and reactive to light, extraocular movements intact, sclera anicteric, conjunctiva are normal. Eyelids were unremarkable. ENT: Nares patent, oropharynx clear without exudates. Moist mucous membranes. NECK: Normal range of motion, supple without lymphadenopathy or JVD. LUNGS: Unlabored respirations. Breath sounds clear to auscultation bilaterally and equal. No wheezes rales or rhonchi. HEART: Regular rate and rhythm without murmurs, rubs or gallops. ABDOMEN: Soft, patient is quite tender to palpation of the mid abdomen, lower suprapubic region, normoactive bowel sounds. No masses appreciated. : Deferred MUSCULOSKELETAL: Normal extremities with adequate strength and normal range of motion, no pitting or edema. No clubbing or cyanosis. NEUROLOGICAL: Patient is alert and oriented x 3. Motor and sensory are also intact. Symmetrical smile. Normal speech, normal gait. PSYCH: Normal mood, normal affect. SKIN: Warm, Dry, normal turgor, no rashes or lesions noted. Limitations: no limitations Course Vital Signs 03/10/21 22:39 Temperature 99 F Pulse Rate 104 H Respiratory 22 Rate Blood Pressure 115/71 O2 Sat by Pulse 97 Oximetry Medical Decision Making - Medical Decision Making Patient is a 50-year-old female presenting with abdominal pain worsening since today. Some mild nausea no vomiting, no fevers. Her vitals are stable. The multiple abdominal surgeries in the past. Labs show a slight white count at 12.5, lactic is 2.4, lipase is 317. Patient's urine shows moderate bacteria, nitrate positive, 4+ glucose. His CT shows evidence of constipation, no other acute findings. Patient was given fluids, pain control, some resting comfortably. I discussed with her the UTI and constipation. Recommended MiraLAX. We will get her started on Bactrim. Urine culture is pending. She is agreeable as planned care and stable for discharge. She can follow up with her family doctor. Return parameters were discussed with her and she verbalized understanding. Case discussed with Dr. Marcus. - Lab Data Result diagrams: 03/10/21 23:52 03/10/21 23:52 Lab Results 03/10/21 03/10/21 03/10/21 Range/Units 22:47 23:52 23:52 WBC 12.5 H (3.8-10.6) k/uL RBC 4.86 (3.80-5.40) m/uL Hgb 13.7 (11.4-16.0) gm/dL Hct 40.3 (34.0-46.0) % MCV 83.0 (80.0-100.0) fL MCH 28.2 (25.0-35.0) pg MCHC 34.0 (31.0-37.0) g/dL RDW 15.6 H (11.5-15.5) % Plt Count 356 (150-450) k/uL MPV 8.8 Neutrophils % 57 % Lymphocytes % 33 % Monocytes % 4 % Eosinophils % 3 % Basophils % 1 % Neutrophils # 7.1 (1.3-7.7) k/uL Lymphocytes # 4.2 (1.0-4.8) k/uL Monocytes # 0.5 (0-1.0) k/uL Eosinophils # 0.4 (0-0.7) k/uL Basophils # 0.1 (0-0.2) k/uL Poikilocytosis Slight PT 9.9 (9.0-12.0) sec INR 0.9 (<1.2) APTT 21.9 L (22.0-30.0) sec Sodium (137-145) mmol/L Potassium (3.5-5.1) mmol/L Chloride (98-107) mmol/L Carbon Dioxide (22-30) mmol/L Anion Gap mmol/L BUN (7-17) mg/dL Creatinine (0.52-1.04) mg/dL Est GFR (CKD-EPI)AfAm (>60 ml/min/1.73 sqM) Est GFR (CKD-EPI)NonAf (>60 ml/min/1.73 sqM) Glucose (74-99) mg/dL Lactic Ac Sepsis Rflx Plasma Lactic Acid Shayan (0.7-2.0) mmol/L Calcium (8.4-10.2) mg/dL Total Bilirubin (0.2-1.3) mg/dL AST (14-36) U/L ALT (4-34) U/L Alkaline Phosphatase (38-126) U/L Total Protein (6.3-8.2) g/dL Albumin (3.5-5.0) g/dL Amylase (30-110) U/L Lipase (23-300) U/L Urine Color Light Yellow Urine Appearance Clear (Clear) Urine pH 7.0 (5.0-8.0) Ur Specific [place] 1.030 (1.001-1.035) Urine Protein Negative (Negative) Urine Glucose (UA) 4+ H (Negative) Urine Ketones Negative (Negative) Urine Blood Negative (Negative) Urine Nitrite Positive H (Negative) Urine Bilirubin Negative (Negative) Urine Urobilinogen <2.0 (<2.0) mg/dL Ur Leukocyte Esterase Trace H (Negative) Urine RBC 1 (0-5) /hpf Urine WBC 16 H (0-5) /hpf Ur Squamous Epith Cells 2 (0-4) /hpf Amorphous Sediment Rare H (None) /hpf Urine Bacteria Moderate H (None) /hpf 03/10/21 03/10/21 03/11/21 Range/Units 23:52 23:52 00:39 WBC (3.8-10.6) k/uL RBC (3.80-5.40) m/uL Hgb (11.4-16.0) gm/dL Hct (34.0-46.0) % MCV (80.0-100.0) fL MCH (25.0-35.0) pg MCHC (31.0-37.0) g/dL RDW (11.5-15.5) % Plt Count (150-450) k/uL MPV Neutrophils % % Lymphocytes % % Monocytes % % Eosinophils % % Basophils % % Neutrophils # (1.3-7.7) k/uL Lymphocytes # (1.0-4.8) k/uL Monocytes # (0-1.0) k/uL Eosinophils # (0-0.7) k/uL Basophils # (0-0.2) k/uL Poikilocytosis PT (9.0-12.0) sec INR (<1.2) APTT (22.0-30.0) sec Sodium 136 L (137-145) mmol/L Potassium 3.2 L (3.5-5.1) mmol/L Chloride 95 L (98-107) mmol/L Carbon Dioxide 28 (22-30) mmol/L Anion Gap 13 mmol/L BUN 16 (7-17) mg/dL Creatinine 0.83 (0.52-1.04) mg/dL Est GFR (CKD-EPI)AfAm >90 (>60 ml/min/1.73 sqM) Est GFR (CKD-EPI)NonAf 84 (>60 ml/min/1.73 sqM) Glucose 203 H (74-99) mg/dL Lactic Ac Sepsis Rflx Y Plasma Lactic Acid Shayan 2.4 H* (0.7-2.0) mmol/L Calcium 9.4 (8.4-10.2) mg/dL Total Bilirubin 0.4 (0.2-1.3) mg/dL AST 29 (14-36) U/L ALT 22 (4-34) U/L Alkaline Phosphatase 158 H (38-126) U/L Total Protein 7.2 (6.3-8.2) g/dL Albumin 4.3 (3.5-5.0) g/dL Amylase 42 (30-110) U/L Lipase 317 H (23-300) U/L Urine Color Urine Appearance (Clear) Urine pH (5.0-8.0) Ur Specific [place] (1.001-1.035) Urine Protein (Negative) Urine Glucose (UA) (Negative) Urine Ketones (Negative) Urine Blood (Negative) Urine Nitrite (Negative) Urine Bilirubin (Negative) Urine Urobilinogen (<2.0) mg/dL Ur Leukocyte Esterase (Negative) Urine RBC (0-5) /hpf Urine WBC (0-5) /hpf Ur Squamous Epith Cells (0-4) /hpf Amorphous Sediment (None) /hpf Urine Bacteria (None) /hpf Disposition Clinical Impression: Abdominal pain, UTI (urinary tract infection), Constipation Disposition: HOME SELF-CARE Condition: Stable Instructions (If sedation given, give patient instructions): Urinary Tract Infection in Women (ED), Constipation (ED) Additional Instructions: Please return to the Emergency Department if symptoms worsen or any other concerns. Trial of MiraLAX for constipation, continue to increase your water intake. Take antibiotics as prescribed for UTI. Follow-up with your family doctor. Prescriptions: Sulfamethox-Tmp 800-160Mg [Bactrim Ds] 1 each PO Q12HR 5 Days #10 tab Polyethylene Glycol 3350 [Miralax] 17 gm PO DAILY PRN #527 gm PRN Reason: Constipation Is patient prescribed a controlled substance at d/c from ED?: No Referrals: Ramin Lopes MD [Primary Care Provider] - 1-2 days Time of Disposition: 03:07
--- NOTE | 2021-03-11 02:56 | CT ---
EXAMINATION TYPE: CT abdomen pelvis w con DATE OF EXAM: 03/11/2021 COMPARISON: 02/23/2020 HISTORY: diffuse abdominal pain x 1 month. worse in last day. prior on PACS. surgical hx: jonas, mariama. bowel resection, and hernia repair CT DLP: 2553.4 mGycm Automated exposure control for dose reduction was used. CONTRAST: CT scan of the abdomen pelvis is performed with IV Contrast, patient injected with 100ml mL of Isovue 300. FINDINGS- LUNG BASES- No significant abnormality is appreciated. LIVER/RO-jjw-[id number] liver suggesting hepatic postcholecystectomy changes noted.. PANCREAS- No gross abnormality is seen. SPLEEN-splenic granuloma noted. Seen. ADRENALS- No gross abnormality is seen. KIDNEYS/BLADDER- no hydronephrosis nephrolithiasis or renal mass. BOWEL-gas pattern nonspecific. Extensive retained fecal debris throughout the colon correlate for con stipation.. LYMPH NODES- No greater than 1cm abdominal or pelvic lymph nodes areappreciated. OSSEOUS STRUCTURES-hypertrophic and degenerative changes spine.. OTHER- aorta of normal caliber. There is mild subcutaneous edema correlate for mild anasarca. No rafia e fluid within the abdominal cavity. There is abnormal attenuation in the subcutaneous tissues anteri or abdominal wall which could be related to scar associated level mid pelvis IMPRESSION- 1. Nonspecific abdomen with no obstruction. Extensive retained fecal debris correlate constipation. 2. Correlate hepatic steatosis 3. Correlate for mild anasarca or cellulitis.
[2021-03-11] MEDS ORDERED: SULFAMETH-TMP DS STARTER PACK 2 TAB BTL PO STA (03:03)
== END 2021-03-11 03:35 | disposition home or self-care (01) ==
LOC: EC 21:27
DX: K59.00 Constipation, unspecified (principal); N39.0 Urinary tract infection, site not specified; E11.9 Type 2 diabetes mellitus without complications; K21.9 Gastro-esophageal reflux disease without esophagitis; E78.5 Hyperlipidemia, unspecified; F32.9 Major depressive disorder, single episode, unspecified; F41.9 Anxiety disorder, unspecified; F25.9 Schizoaffective disorder, unspecified; Z79.4 Long term (current) use of insulin; Z79.82 Long term (current) use of aspirin; Z79.890 Hormone replacement therapy; Z79.899 Other long term (current) drug therapy
CPT/HCPCS: 36415 ×2; 80053; 82150; 83605 ×2; 83690; 85025; 85610; 85730; 81001; 87086; 74177; 96374; 96375; 96361 ×3; 99284; J2270; J2405; Q9967

== ENCOUNTER 2021-04-16 09:33 | Inpatient (IN) | payer OTHER ==
[2021-04-16] MEDS ORDERED: SODIUM CHLORIDE 0.9% 1,000 ML IV STA (10:40)
[2021-04-16] MEDS ORDERED: MORPHINE SULFATE 4 MG/ML SYRINGE IV STA (10:40)
[2021-04-16] MEDS ORDERED: ONDANSETRON 4 MG/2 ML VIAL IVP STA (10:40)
--- NOTE | 2021-04-16 10:53 | ED ---
General Adult HPI - General Chief complaint: Abdominal Pain Stated complaint: Abdominal Pain Time Seen by Provider: 04/16/21 10:21 Source: patient Mode of arrival: wheelchair Limitations: no limitations - History of Present Illness Initial comments: 50-year-old female presents to the emergency room for a chief complaint of abdominal pain. She has had abdominal pain for a few months but it worsened in the past few days. Patient has had history of bowel obstruction and surgery by Dr. Hernandes. Dr. Hernandes has been following her outpatient and called today, would like her admitted to the hospital, does request a CAT scan. Patient admits to nausea, denies vomiting. Denies fevers. Patient has no other complaints at this time including shortness of breath, chest pain, nausea or vomiting, headache, or visual changes. - Related Data Home Medications Medication Instructions Recorded Confirmed Omeprazole [PriLOSEC] 20 mg PO DAILY 01/12/19 02/09/21 Aspirin [Adult Low Dose Aspirin EC] 81 mg PO DAILY 11/10/19 02/09/21 Atorvastatin [Lipitor] 80 mg PO DAILY 11/10/19 02/09/21 Fenofibrate 160 mg PO DAILY 11/10/19 02/09/21 Levothyroxine Sodium [Synthroid] 150 mcg PO DAILY 11/10/19 02/09/21 Insulin Glargine,Hum.rec.anlog 100 unit SQ DAILY 05/14/20 02/09/21 [Lantus Solostar Pen] Cyclobenzaprine [Flexeril] 10 mg PO TID PRN 07/10/20 02/09/21 Empagliflozin [Jardiance] 25 mg PO DAILY 12/11/20 02/09/21 INSULIN ASPART (NovoLOG) [NovoLOG 14 unit SQ AC-TID 12/11/20 02/09/21 (formulary)] Paliperidone [Paliperidone ER] 9 mg PO DAILY 12/11/20 02/09/21 Topiramate [Topamax] 100 mg PO BID 12/11/20 02/09/21 Venlafaxine HCl [Effexor XR] 75 mg PO HS 12/11/20 02/09/21 Vitamin D3 50,000 Units 1,250 mcg PO Q30D 12/11/20 02/09/21 metFORMIN HCL [Glucophage] 1,000 mg PO BID 12/11/20 02/09/21 oxyCODONE-APAP 7.5-325MG [Percocet 1 tab PO TID 01/03/21 02/09/21 7.5-325 mg] Docusate [Colace] 100 mg PO BID 01/18/21 02/09/21 Ondansetron HCl [Zofran] 4 mg PO Q4H PRN 01/18/21 02/09/21 Spironolactone-Hctz 25-25Mg 1 tab PO DAILY 01/18/21 02/09/21 [Aldactazide 25-25 MG] Triamterene/Hydrochlorothiazid 1 tab PO BID 02/09/21 02/09/21 [Triamterene-Hctz 37.5-25 mg Tb] Previous Rx's Medication Instructions Recorded Potassium Chloride ER [K-Dur 20] 20 meq PO TID #30 tab.er.prt 12/16/20 Metoclopramide [Reglan] 10 mg PO Q8H PRN #10 tab 02/10/21 Polyethylene Glycol 3350 [Miralax] 17 gm PO DAILY PRN #527 gm 03/11/21 Sulfamethox-Tmp 800-160Mg [Bactrim 1 each PO Q12HR 5 Days #10 tab 03/11/21 Ds] Allergies Allergy/AdvReac Type Severity Reaction Status Date / Time cephalexin [From Keflex] Allergy Rash/Hives Verified 04/16/21 09:39 Penicillins Allergy Rash/Hives Verified 04/16/21 09:39 propoxyphene Allergy Rash/Hives Verified 04/16/21 09:39 [From Darvocet-N] Review of Systems ROS Statement: Those systems with pertinent positive or pertinent negative responses have been documented in the HPI. ROS Other: All systems not noted in ROS Statement are negative. Past Medical History Past Medical History: Diabetes Mellitus, GERD/Reflux, Hyperlipidemia, Thyroid Disorder Additional Past Medical History / Comment(s): hx ventral hernia, frequent uti's,twisted small bowel, HYPOKALEMIA History of Any Multi-Drug Resistant Organisms: None Reported Past Surgical History: Bowel Resection, Section, Cholecystectomy, Hernia Repair, Hysterectomy, Joint Replacement, Orthopedic Surgery Additional Past Surgical History / Comment(s): bilat knees replaced,. thymus gland,. ventral hernia repair w/ mesh. COLONOSCOPY/EGD Past Anesthesia/Blood Transfusion Reactions: No Reported Reaction Additional Past Anesthesia/Blood Transfusion Reaction / Comment(s): no problems with prior blood transfusion in 1994 Past Psychological History: Anxiety, Depression, Panic Disorder, Schizoaffective Disorder Smoking Status: Never smoker Past Alcohol Use History: None Reported Past Drug Use History: None Reported - Past Family History Mother Family Medical History: Cancer Additional Family Medical History / Comment(s): lung Father Family Medical History: Diabetes Mellitus, Myocardial Infarction ([place]) General Exam Limitations: no limitations General appearance: alert, in no apparent distress Head exam: Present: atraumatic Eye exam: Present: normal appearance, PERRL, EOMI. Absent: scleral icterus, conjunctival injection ENT exam: Present: normal exam, mucous membranes moist Neck exam: Present: normal inspection, full ROM. Absent: tenderness Respiratory exam: Present: normal lung sounds bilaterally. Absent: respiratory distress, wheezes Cardiovascular Exam: Present: regular rate, normal rhythm, normal heart sounds GI/Abdominal exam: Present: soft, tenderness (generalized tenderness), normal bowel sounds. Absent: distended Course Vital Signs 04/16/21 04/16/21 04/16/21 09:34 10:37 10:54 Temperature 97.9 F Pulse Rate 93 84 93 Respiratory 18 18 18 Rate Blood Pressure 88/59 131/95 127/87 O2 Sat by Pulse 99 98 97 Oximetry Medical Decision Making - Medical Decision Making Vitals are stable. CBC unremarkable. CMP does show mild lactic acidosis of 2.6. Could be related to dehydration. Urinalysis does show a mild urinary tract infection. Patient is ALLERGIC to penicillins and cephalosporins. She was given a dose of Levaquin. Ileus versus developing small bowel obstruction with multiple fluid-filled small bowel loops. There is also a bile duct dilated at 1.5 cm, likely chronic given history of postcholecystectomy status. Moderate stool burden. As patient arrived Dr. Geronimo did call and request patient be admitted to her. - Lab Data Result diagrams: 04/16/21 10:44 04/16/21 10:44 Lab Results 04/16/21 04/16/21 04/16/21 Range/Units 10:44 10:44 10:44 WBC 11.4 H (3.8-10.6) k/uL RBC 4.98 (3.80-5.40) m/uL Hgb 13.6 (11.4-16.0) gm/dL Hct 41.5 (34.0-46.0) % MCV 83.3 (80.0-100.0) fL MCH 27.4 (25.0-35.0) pg MCHC 32.8 (31.0-37.0) g/dL RDW 15.2 (11.5-15.5) % Plt Count 318 (150-450) k/uL MPV 8.9 Neutrophils % 67 % Lymphocytes % 25 % Monocytes % 3 % Eosinophils % 3 % Basophils % 1 % Neutrophils # 7.7 (1.3-7.7) k/uL Lymphocytes # 2.9 (1.0-4.8) k/uL Monocytes # 0.4 (0-1.0) k/uL Eosinophils # 0.3 (0-0.7) k/uL Basophils # 0.1 (0-0.2) k/uL Sodium 139 (137-145) mmol/L Potassium 3.5 (3.5-5.1) mmol/L Chloride 102 (98-107) mmol/L Carbon Dioxide 26 (22-30) mmol/L Anion Gap 11 mmol/L BUN 15 (7-17) mg/dL Creatinine 0.64 (0.52-1.04) mg/dL Est GFR (CKD-EPI)AfAm >90 (>60 ml/min/1.73 sqM) Est GFR (CKD-EPI)NonAf >90 (>60 ml/min/1.73 sqM) Glucose 152 H (74-99) mg/dL Plasma Lactic Acid Shayan (0.7-2.0) mmol/L Calcium 10.3 H (8.4-10.2) mg/dL Total Bilirubin 0.4 (0.2-1.3) mg/dL AST 26 (14-36) U/L ALT 17 (4-34) U/L Alkaline Phosphatase 144 H (38-126) U/L Total Protein 7.0 (6.3-8.2) g/dL Albumin 4.0 (3.5-5.0) g/dL Amylase 58 (30-110) U/L Lipase 315 H (23-300) U/L Urine Color Light Yellow Urine Appearance Cloudy H (Clear) Urine pH 7.0 (5.0-8.0) Ur Specific [place] 1.024 (1.001-1.035) Urine Protein Negative (Negative) Urine Glucose (UA) 4+ H (Negative) Urine Ketones Negative (Negative) Urine Blood Negative (Negative) Urine Nitrite Positive H (Negative) Urine Bilirubin Negative (Negative) Urine Urobilinogen <2.0 (<2.0) mg/dL Ur Leukocyte Esterase Moderate H (Negative) Urine RBC 2 (0-5) /hpf Urine WBC 17 H (0-5) /hpf Ur Squamous Epith Cells 5 H (0-4) /hpf Urine Bacteria Rare H (None) /hpf 04/16/21 Range/Units 10:44 WBC (3.8-10.6) k/uL RBC (3.80-5.40) m/uL Hgb (11.4-16.0) gm/dL Hct (34.0-46.0) % MCV (80.0-100.0) fL MCH (25.0-35.0) pg MCHC (31.0-37.0) g/dL RDW (11.5-15.5) % Plt Count (150-450) k/uL MPV Neutrophils % % Lymphocytes % % Monocytes % % Eosinophils % % Basophils % % Neutrophils # (1.3-7.7) k/uL Lymphocytes # (1.0-4.8) k/uL Monocytes # (0-1.0) k/uL Eosinophils # (0-0.7) k/uL Basophils # (0-0.2) k/uL Sodium (137-145) mmol/L Potassium (3.5-5.1) mmol/L Chloride (98-107) mmol/L Carbon Dioxide (22-30) mmol/L Anion Gap mmol/L BUN (7-17) mg/dL Creatinine (0.52-1.04) mg/dL Est GFR (CKD-EPI)AfAm (>60 ml/min/1.73 sqM) Est GFR (CKD-EPI)NonAf (>60 ml/min/1.73 sqM) Glucose (74-99) mg/dL Plasma Lactic Acid Shayan 2.6 H* (0.7-2.0) mmol/L Calcium (8.4-10.2) mg/dL Total Bilirubin (0.2-1.3) mg/dL AST (14-36) U/L ALT (4-34) U/L Alkaline Phosphatase (38-126) U/L Total Protein (6.3-8.2) g/dL Albumin (3.5-5.0) g/dL Amylase (30-110) U/L Lipase (23-300) U/L Urine Color Urine Appearance (Clear) Urine pH (5.0-8.0) Ur Specific [place] (1.001-1.035) Urine Protein (Negative) Urine Glucose (UA) (Negative) Urine Ketones (Negative) Urine Blood (Negative) Urine Nitrite (Negative) Urine Bilirubin (Negative) Urine Urobilinogen (<2.0) mg/dL Ur Leukocyte Esterase (Negative) Urine RBC (0-5) /hpf Urine WBC (0-5) /hpf Ur Squamous Epith Cells (0-4) /hpf Urine Bacteria (None) /hpf Disposition Clinical Impression: Ileus, Lactic acidosis, UTI (urinary tract infection), Nausea, Constipation Disposition: ADMITTED IP TO THIS HOSP Is patient prescribed a controlled substance at d/c from ED?: No Referrals: Ramin Lopes MD [Primary Care Provider] - 1-2 days Time of Disposition: 12:24
[2021-04-16 11:01] LABS: Basophils # (A) 0.1 k/uL (0-0.2); Basophils % (A) 1 %; Eosinophils # (A) 0.3 k/uL (0-0.7); Eosinophils % (A) 3 %; HCT 41.5 % (34.0-46.0); HGB 13.6 gm/dL (11.4-16.0); Lymphocytes # (A) 2.9 k/uL (1.0-4.8); Lymphocytes % (A) 25 %; MCH 27.4 pg (25.0-35.0); MCHC 32.8 g/dL (31.0-37.0); MCV 83.3 fL (80.0-100.0); Mean Platelet Volume 8.9; Monocytes # (A) 0.4 k/uL (0-1.0); Monocytes % (A) 3 %; Neutrophils # (A) 7.7 k/uL (1.3-7.7); Neutrophils % (A) 67 %; Platelet Count 318 k/uL (150-450); RBC 4.98 m/uL (3.80-5.40); RDW 15.2 % (11.5-15.5); WBC 11.4 k/uL (3.8-10.6)
[2021-04-16 11:11] LABS: Appearance,Urine Cloudy (Clear); Bacteria,Urine Rare /hpf; Bilirubin,Urine Negative (Negative); Blood,Urine Negative (Negative); Color,Urine Light Yellow; Glucose,Urine (UA) 4+ (Negative); Ketones,Urine Negative (Negative); Leukocyte Esterase,Urine Moderate (Negative); Nitrite,Urine Positive (Negative); Protein,Urine Negative (Negative); RBC,Urine 2 /hpf (0-5); Specific Gravity,Urine 1.024 (1.001-1.035); Squamous Epithelial Cell,Urine 5 /hpf (0-4); Urobilinogen,Urine <2.0 mg/dL (<2.0); WBC,Urine 17 /hpf (0-5)
[2021-04-16 11:28] LABS: ALT 17 U/L (4-34); AST 26 U/L (14-36); African American GFR (CKD) >90 (>60 ml/min/1.73 sqM); Alkaline Phosphatase 144 U/L (38-126); Amylase 58 U/L (30-110); Anion Gap 11 mmol/L; Blood Urea Nitrogen 15 mg/dL (7-17); Calcium 10.3 mg/dL (8.4-10.2); Carbon Dioxide 26 mmol/L (22-30); Chloride 102 mmol/L (98-107); Glucose 152 mg/dL (74-99); Lipase 315 U/L (23-300); Non-African American GFR(CKD) >90 (>60 ml/min/1.73 sqM); Potassium 3.5 mmol/L (3.5-5.1); Sodium 139 mmol/L (137-145); Total Bilirubin 0.4 mg/dL (0.2-1.3)
[2021-04-16] MEDS ORDERED: SCOPOLAMINE 1.5MG/72HR PATCH TRANSDERM STA (11:50)
[2021-04-16] MEDS ORDERED: LEVOFLOXACIN 750MG-D5W PMX 750 MG in DEXTROSE/WATER 1 150ML.BAG IVPB STA (11:54)
--- NOTE | 2021-04-16 12:09 | CT ---
EXAMINATION TYPE: CT abdomen pelvis w con DATE OF EXAM: 04/16/2021 COMPARISON: 03/11/2021 HISTORY: 50-year-old female generalized abdominal pain TECHNIQUE: Contiguous axial scanning of the abdomen and pelvis following administration of 100 ml Iso beto 300 IV contrast. Delayed images through the kidneys and coronal/sagittal reconstructions perform ed. CT DLP: 2771.4 mGycm Automated exposure control for dose reduction was used. FINDINGS: Heart normal size without pericardial effusion. Lung bases clear without pleural effusion. Liver is enlarged measuring 24.4 cm with a meniscus attenuation compatible with fatty infiltration. P ortal venous system is patent. Bile duct measures 1.5 cm versus 1.3 cm, previously there are no distal obstructing lesion is seen. N o intrahepatic biliary ductal dilatation. Cholecystectomy clips. Adrenal glands, kidneys, and pancreas within normal limits. Small calcified granuloma within the spleen. Distal small bowel loops are collapsed. There are some prominent fluid filled small bowel loops throu ghout the left side of the abdomen. Some of these are mildly dilated measuring up to 3.5 cm. No well- defined transition point is identified at this time. Post surgical changes along the ventral midline abdominal wall. Mild generalized anasarca change. Appendix not visualized. No secondary findings of acute appendicitis. Moderate stool burden. No peric olonic inflammatory change. Bladder partially distended. Surgical clips in the left side of the pelvis. Small pelvic fluid. No ab normal fluid collection in the pelvis or pelvic lymphadenopathy. Bones: Mild degenerative change of the hips. Subtle left L5 hemisacralization. Facet arthropathy lowe r lumbar spine. IMPRESSION: 1. MULTIPLE FLUID-FILLED SMALL BOWEL LOOPS IN THE LEFT SIDE OF THE ABDOMEN WITH MILD DILATATION UP TO 3.5 CM. DISTAL SMALL BOWEL IS LARGELY COLLAPSED. HOWEVER, NO DISCRETE TRANSITION POINT IS IDENTIFIED THIS TIME. FINDINGS COULD REPRESENT ILEUS OR AN ENTERITIS. CLINICAL AND RADIOGRAPHIC FOLLOW-UP RECOM MENDED TO EXCLUDE AN EARLY DEVELOPING SMALL BOWEL OBSTRUCTION. 2. HEPATOMEGALY (24.4 CM) WITH AT LEAST MODERATE HEPATIC STEATOSIS. 3. BILE DUCT DILATED AT 1.5 CM. THIS IS COMPARED TO 1.3 CM ON 03/11/2021. PROBABLY CHRONIC GIVEN POST CHOLECYSTECTOMY STATUS. CORRELATE WITH ALKALINE PHOSPHATASE AND BILIRUBIN LEVELS. 4. MODERATE STOOL BURDEN.
[2021-04-16] MEDS ORDERED: ONDANSETRON 4 MG/2 ML VIAL IVP PRN (12:24)
[2021-04-16] MEDS ORDERED: NALOXONE 0.4 MG/ML 1 ML VIAL IV PRN (12:24)
[2021-04-16] MEDS: SODIUM CHLORIDE 0.9% 1,000 ML IV SCH ×2 (13:43→23:17)
--- NOTE | 2021-04-16 15:25 | P.GSHP ---
History of Present Illness H&P Date: 04/16/21 CHIEF COMPLAINT: Abdominal pain HISTORY OF PRESENT ILLNESS: This is a 50-year-old female with a known history of multiple abdominal surgeries. She presents to emergency room with complaints of abdominal pain. She reports having abdominal pain for a few months and over the last few days it has increased in severity. Patient admits to having nausea. Denies any vomiting. Denies any fever, chills or sweats. PAST MEDICAL HISTORY: See list. PAST SURGICAL HISTORY: See list. MEDICATIONS: See list. ALLERGIES: See list. SOCIAL HISTORY: No illicit drug use. REVIEW OF SYSTEMS: CONSTITUTIONAL: Denies fever or chills. HEENT: Denies blurred vision, vision changes, or eye pain. Denies hemoptysis ENDOCRINE: Denies heat or cold intolerance. CARDIOVASCULAR: Denies chest pain or pressure. RESPIRATORY: No shortness of breath. GASTROINTESTINAL: Please refer to HPI NEURO: Denies history of seizures. PSYCH: No depression or suicidal ideation HEMATOLOGIC: Denies bleeding disorders. LYMPHATIC: The patient denies any lumps and bumps around the neck. GENITOURINARY: Denies any blood in urine or increased urinary frequency. MUSCULOSKELETAL: Denies myalgias. Denies joint swelling. Denies decreased range of motion beyond patients baseline. SKIN: Denies pruitis. Denies rash. PHYSICAL EXAM: VITAL SIGNS: Reviewed GENERAL: Well-developed in no acute distress. HEENT: No sclera icterus. Extraocular movements grossly intact. Moist buccal mucosa. Head is atraumatic, normocephalic. Hears conversational speech. No nasal drainage. NECK: Supple without lymphadenopathy. CHEST: Non-labored respirations and equal bilateral excursions. CARDIOVASCULAR: Palpable 2+ radial pulses. ABDOMEN: Soft. Nondistended. MUSCULOSKELETAL: No clubbing or cyanosis. NEUROLOGIC: No focal or lateralizing signs. Cranial nerves II through XII grossly intact. PSYCH: Appropriate affect. Alert and oriented to person, place and time. SKIN: Well perfused. Good skin turgor. LABORATORY DATA: WBC 11.4 Hgb 13.6 platelets 318 Sodium 139 potassium 3.5 creatinine 0.64 lactic 2.6 AST 26 ALT 17 alk phos 144 lipase 3:15 Urinalysis positive nitrites, moderate leukocyte esterase and 5 squamous epithe maynor and urine bacteria rare IMAGING: Computed tomography scan shows multiple fluid filled small bowel loops in the left side of the abdomen with mild dilatation up to 3.5 cm. Distal small bowel is largely collapsed. However no discrete transition point is identified. Findings could represent ileus or enteritis. Clinical and x-ray follow-up recommended to exclude early developing small bowel obstruction. Hepatomegaly with at least moderate hepatic steatosis. Bile duct dilated at 1.5 cm. This is compared to 1.3 cm on 03/11/2021. Probably chronic given postcholecystectomy status. Moderate stool burden. ASSESSMENT: 1. Abdominal pain 2. Constipation with moderate stool burden noted on CAT scan 3. History of multiple abdominal surgeries 4. Elevated lactic acid 5. Possible UTI received antibiotics. Urine culture pending. PLAN: -Patient scheduled for colonoscopy tomorrow, 04/17/[address] Hernandes -Milk of molasses enema for bowel prep -Keep patient nothing by mouth after midnight -can have clear liquids today -Continue IV fluids -Scopolamine patch added for nausea -Continue Zofran as needed Physician Manager Public note has been reviewed by physician. Signing provider agrees with the documented findings, assessment, and plan of care. Past Medical History Past Medical History: Diabetes Mellitus, GERD/Reflux, Hyperlipidemia, Thyroid Disorder Additional Past Medical History / Comment(s): hx ventral hernia, frequent uti's,twisted small bowel, HYPOKALEMIA History of Any Multi-Drug Resistant Organisms: None Reported Past Surgical History: Bowel Resection, Section, Cholecystectomy, Hernia Repair, Hysterectomy, Joint Replacement, Orthopedic Surgery Additional Past Surgical History / Comment(s): bilat knees replaced,. thymus gland,. ventral hernia repair w/ mesh. COLONOSCOPY/EGD Past Anesthesia/Blood Transfusion Reactions: No Reported Reaction Additional Past Anesthesia/Blood Transfusion Reaction / Comment(s): no problems with prior blood transfusion in 1994 Past Psychological History: Anxiety, Depression, Panic Disorder, Schizoaffective Disorder Smoking Status: Never smoker Past Alcohol Use History: None Reported Past Drug Use History: None Reported - Past Family History Mother Family Medical History: Cancer Additional Family Medical History / Comment(s): lung Father Family Medical History: Diabetes Mellitus, Myocardial Infarction (ID) Medications and Allergies Home Medications Medication Instructions Recorded Confirmed Type Omeprazole [PriLOSEC] 20 mg PO DAILY 01/12/19 04/16/21 History Aspirin [Adult Low Dose Aspirin EC] 81 mg PO DAILY 11/10/19 04/16/21 History Atorvastatin [Lipitor] 80 mg PO DAILY 11/10/19 04/16/21 History Levothyroxine Sodium [Synthroid] 150 mcg PO DAILY 11/10/19 04/16/21 History Insulin Glargine,Hum.rec.anlog 80 unit SQ BID 05/14/20 04/16/21 History [Lantus Solostar Pen] Empagliflozin [Jardiance] 25 mg PO DAILY 12/11/20 04/16/21 History Topiramate [Topamax] 100 mg PO BID 12/11/20 04/16/21 History Venlafaxine HCl [Effexor XR] 75 mg PO HS 12/11/20 04/16/21 History Vitamin D3 50,000 Units 1,250 mcg PO Q30D 12/11/20 04/16/21 History metFORMIN HCL [Glucophage] 1,000 mg PO BID 12/11/20 04/16/21 History oxyCODONE-APAP 7.5-325MG [Percocet 1 tab PO TID 01/03/21 04/16/21 History 7.5-325 mg] Ondansetron HCl [Zofran] 4 mg PO TID PRN 01/18/21 04/16/21 History Triamterene/Hydrochlorothiazid 1 tab PO DAILY 02/09/21 04/16/21 History [Triamterene-Hctz 37.5-25 mg Tb] Dulaglutide [Trulicity] 0.75 mg SQ WE 04/16/21 04/16/21 History Ibuprofen [Motrin] 800 mg PO TID PRN 04/16/21 04/16/21 History Insulin Aspart [NovoLOG Flexpen] 16 units SQ AC-TID 04/16/21 04/16/21 History LORazepam [Ativan] 1 mg PO TID 04/16/21 04/16/21 History Potassium Chloride ER [K-Dur 20] 20 meq PO 5XD 04/16/21 04/16/21 History QUEtiapine FUMARATE [SEROquel] 25 mg PO HS 04/16/21 04/16/21 History Allergies Allergy/AdvReac Type Severity Reaction Status Date / Time bupropion [From Wellbutrin] Allergy Rash/Hives Verified 04/16/21 12:30 cephalexin [From Keflex] Allergy Rash/Hives Verified 04/16/21 12:30 propoxyphene Allergy Rash/Hives Verified 04/16/21 12:30 [From Darvocet-N] Surgical - Exam Vital Signs Temp Pulse Resp BP Pulse Ox 97.9 F 93 18 88/59 99 04/16/21 09:34 04/16/21 09:34 04/16/21 09:34 04/16/21 09:34 04/16/21 09:34 Results - Labs 04/16/21 10:44 04/16/21 10:44 Abnormal Lab Results - Last 24 Hours (Table) 04/16/21 04/16/21 04/16/21 Range/Units 10:44 10:44 10:44 WBC 11.4 H (3.8-10.6) k/uL Glucose 152 H (74-99) mg/dL Plasma Lactic Acid Shayan (0.7-2.0) mmol/L Calcium 10.3 H (8.4-10.2) mg/dL Alkaline Phosphatase 144 H (38-126) U/L Lipase 315 H (23-300) U/L Urine Appearance Cloudy H (Clear) Urine Glucose (UA) 4+ H (Negative) Urine Nitrite Positive H (Negative) Ur Leukocyte Esterase Moderate H (Negative) Urine WBC 17 H (0-5) /hpf Ur Squamous Epith Cells 5 H (0-4) /hpf Urine Bacteria Rare H (None) /hpf 04/16/21 Range/Units 10:44 WBC (3.8-10.6) k/uL Glucose (74-99) mg/dL Plasma Lactic Acid Shayan 2.6 H* (0.7-2.0) mmol/L Calcium (8.4-10.2) mg/dL Alkaline Phosphatase (38-126) U/L Lipase (23-300) U/L Urine Appearance (Clear) Urine Glucose (UA) (Negative) Urine Nitrite (Negative) Ur Leukocyte Esterase (Negative) Urine WBC (0-5) /hpf Ur Squamous Epith Cells (0-4) /hpf Urine Bacteria (None) /hpf Diabetes panel 04/16/21 Range/Units 10:44 Sodium 139 (137-145) mmol/L Potassium 3.5 (3.5-5.1) mmol/L Chloride 102 (98-107) mmol/L Carbon Dioxide 26 (22-30) mmol/L BUN 15 (7-17) mg/dL Creatinine 0.64 (0.52-1.04) mg/dL Glucose 152 H (74-99) mg/dL Calcium 10.3 H (8.4-10.2) mg/dL AST 26 (14-36) U/L ALT 17 (4-34) U/L Alkaline Phosphatase 144 H (38-126) U/L Total Protein 7.0 (6.3-8.2) g/dL Albumin 4.0 (3.5-5.0) g/dL Calcium panel 04/16/21 Range/Units 10:44 Calcium 10.3 H (8.4-10.2) mg/dL Albumin 4.0 (3.5-5.0) g/dL Pituitary panel 04/16/21 Range/Units 10:44 Sodium 139 (137-145) mmol/L Potassium 3.5 (3.5-5.1) mmol/L Chloride 102 (98-107) mmol/L Carbon Dioxide 26 (22-30) mmol/L BUN 15 (7-17) mg/dL Creatinine 0.64 (0.52-1.04) mg/dL Glucose 152 H (74-99) mg/dL Calcium 10.3 H (8.4-10.2) mg/dL Adrenal panel 04/16/21 Range/Units 10:44 Sodium 139 (137-145) mmol/L Potassium 3.5 (3.5-5.1) mmol/L Chloride 102 (98-107) mmol/L Carbon Dioxide 26 (22-30) mmol/L BUN 15 (7-17) mg/dL Creatinine 0.64 (0.52-1.04) mg/dL Glucose 152 H (74-99) mg/dL Calcium 10.3 H (8.4-10.2) mg/dL Total Bilirubin 0.4 (0.2-1.3) mg/dL AST 26 (14-36) U/L ALT 17 (4-34) U/L Alkaline Phosphatase 144 H (38-126) U/L Total Protein 7.0 (6.3-8.2) g/dL Albumin 4.0 (3.5-5.0) g/dL
[2021-04-16] MEDS: ONDANSETRON 4 MG/2 ML VIAL IVP PRN ×2 (17:03→23:24)
[2021-04-16] MEDS: MORPHINE SULFATE 4 MG/ML SYRINGE IV PRN ×2 (17:04→23:25)
[2021-04-16] MEDS ORDERED: SODIUM CHLORIDE 0.9% 1,000 ML IV ONE (17:58)
[2021-04-16] MEDS ORDERED: LACTULOSE 20 GM/30 ML CUP PO STA (18:00)
[2021-04-16] MEDS ORDERED: MAGNESIUM HYDROXIDE 2,400 MG/10 ML CUP PO STA (18:00)
[2021-04-16 23:24] LABS: Glucose,Whole Blood 136 mg/dL (75-99)
[2021-04-17] MEDS: LORazepam 1 MG TAB PO SCH ×4 (00:32→20:52)
[2021-04-17] MEDS: SODIUM CHLORIDE 0.9% 1,000 ML IV SCH ×3 (03:40→19:22)
[2021-04-17] MEDS ORDERED: IBUPROFEN 400 MG TAB PO PRN (05:22)
[2021-04-17] MEDS: LEVOTHYROXINE 75 MCG TAB PO SCH (06:09)
[2021-04-17] MEDS: MORPHINE SULFATE 4 MG/ML SYRINGE IV PRN ×2 (06:14→19:52)
[2021-04-17] MEDS: ONDANSETRON 4 MG/2 ML VIAL IVP PRN ×2 (06:14→19:52)
[2021-04-17 07:12] LABS: Glucose,Whole Blood 92 mg/dL (75-99)
[2021-04-17] MEDS ORDERED: POLYETHYLENE GLYCOL LYTES SOLN 4,000 ML SOLN.RECON PO ONE (07:45)
[2021-04-17 07:56] LABS: Basophils # (A) 0.1 k/uL (0-0.2); Basophils % (A) 1 %; Eosinophils # (A) 0.2 k/uL (0-0.7); Eosinophils % (A) 3 %; HCT 38.5 % (34.0-46.0); HGB 12.3 gm/dL (11.4-16.0); Lymphocytes # (A) 2.7 k/uL (1.0-4.8); Lymphocytes % (A) 28 %; MCH 27.2 pg (25.0-35.0); MCHC 31.9 g/dL (31.0-37.0); MCV 85.2 fL (80.0-100.0); Mean Platelet Volume 8.5; Monocytes # (A) 0.4 k/uL (0-1.0); Monocytes % (A) 4 %; Neutrophils # (A) 6.1 k/uL (1.3-7.7); Neutrophils % (A) 63 %; Platelet Count 284 k/uL (150-450); RBC 4.52 m/uL (3.80-5.40); RDW 15.4 % (11.5-15.5); WBC 9.7 k/uL (3.8-10.6)
[2021-04-17 08:13] LABS: African American GFR (CKD) >90 (>60 ml/min/1.73 sqM); Anion Gap 7 mmol/L; Blood Urea Nitrogen 11 mg/dL (7-17); Calcium 8.3 mg/dL (8.4-10.2); Carbon Dioxide 24 mmol/L (22-30); Chloride 108 mmol/L (98-107); Glucose 91 mg/dL (74-99); Non-African American GFR(CKD) >90 (>60 ml/min/1.73 sqM); Potassium 3.2 mmol/L (3.5-5.1); Sodium 139 mmol/L (137-145)
[2021-04-17] MEDS ORDERED: POTASSIUM CHLORIDE ER 20 MEQ TAB.ER PO STA (08:20)
[2021-04-17] MEDS: INSULIN ASPART (NovoLOG) 100 UNIT/ML VIAL SQ SCH ×3 (08:55→18:40)
[2021-04-17] MEDS: INSULIN DETEMIR (LEVEMIR) 100 UNIT/ML SYR SQ SCH ×2 (08:56→20:47)
[2021-04-17] MEDS: NON FORMULARY DRUG (Empagliflozin [Jardiance] 25 MG Tablet) PO SCH (08:57)
[2021-04-17] MEDS: PANTOPRAZOLE 40 MG TABLET PO SCH (09:07)
[2021-04-17] MEDS: metFORMIN 500 MG TAB PO SCH ×2 (09:07→20:47)
[2021-04-17] MEDS: oxyCODONE-APAP 7.5-325MG 1 EACH TAB PO SCH ×3 (09:07→20:51)
[2021-04-17] MEDS: TOPIRAMATE 100 MG TAB PO SCH ×2 (09:08→19:52)
[2021-04-17] MEDS: TRIAMTERENE-HCTZ 37.5-25MG 1 EACH TAB PO SCH (09:09)
[2021-04-17 12:05] LABS: Glucose,Whole Blood 123 mg/dL (75-99)
--- NOTE | 2021-04-17 12:16 | P.PN ---
Subjective Progress Note Date: 04/17/21 CHIEF COMPLAINT: Abdominal pain HISTORY OF PRESENT ILLNESS: Patient admitted to the hospital with severe constipation and was scheduled for colonoscopy. Colonoscopy will have to be rescheduled. Patient only had 1 bowel movement with the enema as, lactulose and the mag. She reports that she is still distended and having lower abdominal discomfort. She reports nausea. No vomiting. She currently on a clear liquid diet. History of chronic constipation. Patient reports having constipation even during childhood. Patient Afebrile. WBC is down from 11.4 to 9.7 Hgb 12.3 sodium level 139 K3.2 creatinine 0.59 PHYSICAL EXAM: VITAL SIGNS: Reviewed GENERAL: Well-developed in no acute distress. HEENT: No sclera icterus. Extraocular movements grossly intact. Moist buccal mucosa. Head is atraumatic, normocephalic. Hears conversational speech. No nasal drainage. NECK: Supple without lymphadenopathy. CHEST: Non-labored respirations and equal bilateral excursions. CARDIOVASCULAR: Palpable 2+ radial pulses. ABDOMEN: Soft. Nondistended. Lower abdominal tenderness with palpation MUSCULOSKELETAL: No clubbing or cyanosis. NEUROLOGIC: No focal or lateralizing signs. Cranial nerves II through XII grossly intact. PSYCH: Appropriate affect. Alert and oriented to person, place and time. SKIN: Well perfused. Good skin turgor. ASSESSMENT: 1. Abdominal pain 2. Constipation with moderate stool burden noted on CAT scan 3. History of multiple abdominal surgeries 4. Elevated lactic acid resolved 5. Questionable UTI. Asymptomatic. Await urine culture before prescribing any further antibiotics 6. History of chronic constipation 7. Hypokalemia 8. History of diabetes PLAN: -Patient has had no BM with Nulytely bowel prep -Warm Soapsuds enemas have been ordered -Continue clear liquid diet -Encourage patient to ambulate -Replace potassium. Check magnesium level -Patient will require colonoscopy -Check abdominal x-ray regarding abdominal pain and constipation -Consult GI service regarding chronic constipation Physician Stripper [employer] note has been reviewed by physician. Signing provider agrees with the documented findings, assessment, and plan of care. Objective - Vital Signs Vital signs: Vital Signs Temp 98 F 04/17/21 07:00 Pulse 81 04/17/21 07:00 Resp 20 04/17/21 07:00 BP 98/59 04/17/21 07:00 Pulse Ox 98 04/17/21 07:00 Intake & Output 04/16/21 04/17/21 04/17/21 18:59 06:59 18:59 Weight 114.759 kg 114.759 kg Other: Voiding Method Toilet Toilet # Voids 2 - Labs CBC & Chem 7: 04/17/21 07:22 04/17/21 07:22 Labs: Abnormal Lab Results - Last 24 Hours (Table) 04/16/21 04/16/21 04/16/21 Range/Units 15:37 18:36 23:23 Potassium (3.5-5.1) mmol/L Chloride (98-107) mmol/L POC Glucose (mg/dL) 136 H (75-99) mg/dL Plasma Lactic Acid Shayan 2.6 H* 2.2 H* (0.7-2.0) mmol/L Calcium (8.4-10.2) mg/dL 04/17/21 Range/Units 07:22 Potassium 3.2 L (3.5-5.1) mmol/L Chloride 108 H (98-107) mmol/L POC Glucose (mg/dL) (75-99) mg/dL Plasma Lactic Acid Shayan (0.7-2.0) mmol/L Calcium 8.3 L (8.4-10.2) mg/dL Microbiology - Last 24 Hours (Table) 04/16/21 10:44 Urine Culture - Preliminary Urine,Voided
[2021-04-17 13:34] LABS: ALT 14 U/L (4-34); AST 24 U/L (14-36); Albumin 3.1 g/dL (3.5-5.0); Albumin/Globulin Ratio 1.1; Alkaline Phosphatase 83 U/L (38-126); Globulin 2.7 g/dL; Total Bilirubin 0.2 mg/dL (0.2-1.3); Total Protein 5.8 g/dL (6.3-8.2)
--- NOTE | 2021-04-17 15:26 | XR ---
EXAMINATION TYPE: XR abdomen 2V DATE OF EXAM: 04/17/2021 COMPARISON: 01/17/2021 INDICATION: Abdomen pain TECHNIQUE: Single view abdomen supine view. Upright views obtained. FINDINGS: There is a normal bowel gas pattern. No free air is evident. No differential air-fluid levels are pre sent. Psoas margins are normal. No organomegaly is present. Surgical clips are within the pelvis cholecystectomy clips are in the right upper quadrant. IMPRESSION: 1. Unremarkable Abdomen
[2021-04-17 17:01] LABS: Glucose,Whole Blood 101 mg/dL (75-99)
--- NOTE | 2021-04-17 17:21 | CONS ---
CONSULTATION CHIEF COMPLAINT: Abdominal pain. HISTORY OF PRESENT ILLNESS: This is another admission for this 50-year-old white female. She has been in and out of the hospital for numerous problems over the last several months or years. She is obese. She has a history of diabetes. She has also had a longstanding history of constipation. She recently has had problems with hypokalemia with diuretics for edema. She came into the emergency room because of increasing abdominal pain and it was felt that her presentation was suggestive of small-bowel obstruction. She also has a severe problem with constipation, which could be the etiology of her difficulty. She was not vomiting. She had had no diarrhea, melena, hematochezia, etc. REVIEW OF SYSTEMS: She has had no other symptoms. Past medical history, family history, and personal and social histories reveal that she cannot take Aldactazide, Cymbalta, Wellbutrin or cephalosporins. Medications include: 1. Linzess 145 mcg once a day. 2. Aspirin 81 mg. 3. Ibuprofen 800 mg t.i.d. p.r.n. 4. Trulicity 0.75 once a week. 5. Jardiance 25 mg once a day. 6. Potassium 20 mEq five times a day. 7. Vitamin D3 50,000 units a month. 8. Ativan 1 mg t.i.d. p.r.n. 9. Dyazide twice a day. 10.Atorvastatin 80 mg once a day. 11.Topamax 100 mg twice a day. 12.Venlafaxine 75 mg at night. 13.Metformin 1 gram twice a day. 14.Fenofibrate 160 mg once a day. 15.Lantus 64 units twice a day. 16.NovoLog 16 units before meals. The remainder of her history is unremarkable. She does not smoke or drink. PHYSICAL EXAMINATION: Blood pressure is 122/70 with a pulse of 112, respirations of 18. She is afebrile. In general she appeared to be overweight and in some discomfort. Skin color is normal. Skin was dry. Head, ears, eyes, nose, mouth and throat were normal. Chest is clear. Cardiac exam is normal. The abdomen is protuberant and she had some generalized mild or moderate tenderness throughout without any masses or visceromegaly. Bowel sounds are present. Extremities are normal. Neurologically she is intact. She is admitted to the hospital with the diagnoses: 1. Possible small-bowel obstruction. 2. Constipation. 3. History of insulin-dependent diabetes mellitus. RECOMMENDATIONS: None at this time. Will follow with you. Thank you. Respectfully, Ramin Lopes II, M.D. TONO / FELIZ: [id number] /
--- NOTE | 2021-04-17 17:27 | PN ---
PROGRESS NOTE DATE OF SERVICE: 04/17/2021 CHIEF COMPLAINT: Abdominal pain and possible bowel obstruction with constipation. HISTORY OF PRESENT ILLNESS: This lady is about the same. She is still having some crampy abdominal pain. She is being followed by Surgery. PHYSICAL EXAMINATION: Vital signs are normal. Chest is clear. Cardiac exam is normal. The abdomen is protuberant. She has slight mild tenderness throughout. Bowel sounds are heard. IMPRESSION: 1. Small bowel obstruction? 2. Constipation. 3. Diabetes. PLAN: Continue to follow with Surgery. MMODL / IJN: [id number] /
[2021-04-17] MEDS: VENLAFAXINE HCL ER 75 MG CAP PO SCH (19:51)
[2021-04-17] MEDS: QUEtiapine 25 MG TAB PO SCH (19:52)
[2021-04-17 20:33] LABS: Glucose,Whole Blood 134 mg/dL (75-99)
[2021-04-18] MEDS: SODIUM CHLORIDE 0.9% 1,000 ML IV SCH ×3 (03:01→19:15)
[2021-04-18] MEDS: LEVOTHYROXINE 75 MCG TAB PO SCH (05:48)
[2021-04-18 08:07] LABS: Glucose,Whole Blood 126 mg/dL (75-99)
[2021-04-18] MEDS: INSULIN ASPART (NovoLOG) 100 UNIT/ML VIAL SQ SCH ×3 (08:17→18:05)
[2021-04-18] MEDS: INSULIN DETEMIR (LEVEMIR) 100 UNIT/ML SYR SQ SCH ×2 (08:18→21:12)
[2021-04-18] MEDS: metFORMIN 500 MG TAB PO SCH (08:18)
[2021-04-18] MEDS: oxyCODONE-APAP 7.5-325MG 1 EACH TAB PO SCH ×3 (09:22→21:13)
[2021-04-18] MEDS: LORazepam 1 MG TAB PO SCH ×3 (09:22→21:12)
[2021-04-18] MEDS: PANTOPRAZOLE 40 MG TABLET PO SCH (09:22)
[2021-04-18] MEDS: TRIAMTERENE-HCTZ 37.5-25MG 1 EACH TAB PO SCH (09:22)
[2021-04-18] MEDS: TOPIRAMATE 100 MG TAB PO SCH ×2 (09:23→21:14)
[2021-04-18 10:38] LABS: Glucose,Whole Blood 163 mg/dL (75-99)
[2021-04-18 12:47] LABS: Glucose,Whole Blood 154 mg/dL (75-99)
[2021-04-18 13:15] LABS: African American GFR (CKD) 100.3 (60.0-200.0); Anion Gap 12.1 mmol/L (4.00-12.00); BUN/Creat Ratio 9.88 Ratio (12.00-20.00); Blood Urea Nitrogen 7.9 mg/dL (9.0-27.0); Calcium 8.2 mg/dL (8.7-10.3); Carbon Dioxide 22.9 mmol/L (21.6-31.8); Magnesium 1.9 mg/dL (1.5-2.4); Non-African American GFR(CKD) 86.6 (60.0-200.0); Potassium 3.4 mmol/L (3.5-5.5)
[2021-04-18] MEDS ORDERED: POTASSIUM CHLORIDE ER 20 MEQ TAB.ER PO STA (13:43)
[2021-04-18] MEDS ORDERED: MAGNESIUM SULFATE-D5W PMX 1 GM in DEXTROSE/WATER 1 100ML.BAG IVPB ONE (13:43)
--- NOTE | 2021-04-18 13:54 | P.PN ---
Subjective Progress Note Date: 04/18/21 CHIEF COMPLAINT: Abdominal pain HISTORY OF PRESENT ILLNESS: Patient admitted to the hospital with severe constipation. Patient initially was to have colonoscopy completed. However, she is having difficulty having bowel movements. Patient has received lactulose, milk of magnesia, local molasses enemas and soapsuds enemas as well as the new lightly bowel prep. She did have small results of a bowel movement with the subset enema. Her abdominal x-ray was unremarkable. Afebrile. Potassium low at 3.4 magnesium 1.9 PHYSICAL EXAM: VITAL SIGNS: Reviewed GENERAL: Well-developed in no acute distress. HEENT: No sclera icterus. Extraocular movements grossly intact. Moist buccal mucosa. Head is atraumatic, normocephalic. Hears conversational speech. No nasal drainage. NECK: Supple without lymphadenopathy. CHEST: Non-labored respirations and equal bilateral excursions. CARDIOVASCULAR: Palpable 2+ radial pulses. ABDOMEN: Soft. Nondistended. Lower abdominal tenderness with palpation MUSCULOSKELETAL: No clubbing or cyanosis. NEUROLOGIC: No focal or lateralizing signs. Cranial nerves II through XII grossly intact. PSYCH: Appropriate affect. Alert and oriented to person, place and time. SKIN: Well perfused. Good skin turgor. ASSESSMENT: 1. Abdominal pain 2. Constipation with moderate stool burden noted on CAT scan 3. History of multiple abdominal surgeries 4. Elevated lactic acid resolved 5. Questionable UTI. Asymptomatic. Await urine culture before prescribing any further antibiotics 6. History of chronic constipation 7. Hypokalemia 8. History of diabetes PLAN: -Barium enema x-ray study ordered -Continue clear liquid diet -Encourage patient to ambulate -Replace potassium. Replace magnesium -Patient will require colonoscopy -GI service on consult regarding chronic constipation -Medicine service on consult for diabetes management Physician Pest Control Pilot note has been reviewed by physician. Signing provider agrees with the documented findings, assessment, and plan of care. Objective - Vital Signs Vital signs: Vital Signs Temp 98 F 04/18/21 07:15 Pulse 87 04/18/21 08:00 Resp 16 04/18/21 08:00 BP 115/74 04/18/21 07:15 Pulse Ox 96 04/18/21 07:15 Intake & Output 04/17/21 04/18/21 04/18/21 18:59 06:59 18:59 Intake Total 1040 Balance 1040 Intake: Intake, IV Titration 1040 Amount Sodium Chloride 0.9% 1, 1040 000 ml @ 130 mls/hr IV . [id number] [facility] Rx#:[id number] Other: Voiding Method Toilet Toilet Toilet # Voids 2 - Labs CBC & Chem 7: 04/17/21 07:22 04/18/21 05:43 Labs: Abnormal Lab Results - Last 24 Hours (Table) 04/17/21 04/17/21 04/18/21 Range/Units 16:59 20:32 05:43 Potassium 3.4 L (3.5-5.5) mmol/L Anion Gap 12.10 H (4.00-12.00) mmol/L BUN 7.9 L (9.0-27.0) mg/dL BUN/Creatinine Ratio 9.88 L (12.00-20.00) Ratio Glucose 117 H (70-110) mg/dL POC Glucose (mg/dL) 101 H 134 H (75-99) mg/dL Calcium 8.2 L (8.7-10.3) mg/dL 04/18/21 04/18/21 04/18/21 Range/Units 08:05 10:36 12:45 Potassium (3.5-5.5) mmol/L Anion Gap (4.00-12.00) mmol/L BUN (9.0-27.0) mg/dL BUN/Creatinine Ratio (12.00-20.00) Ratio Glucose (70-110) mg/dL POC Glucose (mg/dL) 126 H 163 H 154 H (75-99) mg/dL Calcium (8.7-10.3) mg/dL Microbiology - Last 24 Hours (Table) 04/16/21 10:44 Urine Culture - Preliminary Urine,Voided Gram Neg Bacilli 04/16/21 13:30 Blood Culture - Preliminary Blood No Growth after 24 hours 04/16/21 13:15 Blood Culture - Preliminary Blood No Growth after 24 hours
[2021-04-18] MEDS: NON FORMULARY DRUG (Empagliflozin [Jardiance] 25 MG Tablet) PO SCH (14:15)
[2021-04-18 17:06] LABS: Glucose,Whole Blood 181 mg/dL (75-99)
--- NOTE | 2021-04-18 17:11 | FL ---
EXAMINATION TYPE: FL barium enema DATE OF EXAM: 04/18/2021 COMPARISON: NONE HISTORY: Constipation not relieved by enemas. TECHNIQUE: A double contrast barium enema study is performed. A total of 30 seconds of fluoroscopic time was utilized during procedure and 32 images obtained. FINDINGS: [employer] view of the abdomen shows overall non-obstructive bowel gas pattern. Cholecystectomy clips are present. Single contrast study performed due to concern for obstruction and no prep for the patient. Enema is inserted. There is successful filling to the cecum. No obstructing or constricting mass is identifie d Appendix and terminal ileum are not refluxed. A few surgical clips in the pelvis redemonstrated. IMPRESSION: No obstructing or constricting mass.
--- NOTE | 2021-04-18 19:55 | PN ---
PROGRESS NOTE DATE OF SERVICE: 04/18/2021 CHIEF COMPLAINT: Abdominal pain and constipation. HISTORY OF PRESENT ILLNESS: This lady is still having quite a bit of generalized abdominal pain. This is all likely due to obstipation. She is not vomiting any longer. PHYSICAL EXAMINATION: Her abdomen is still distended. She has generalized tenderness. Bowel sounds are not heard at this time. There are no masses. IMPRESSION: Obstipation with bowel obstruction. PLAN: Continue efforts to disimpact and return normal GI motility. MMODL / IJN: [id number] /
[2021-04-18 20:23] LABS: Glucose,Whole Blood 277 mg/dL (75-99)
[2021-04-18] MEDS: QUEtiapine 25 MG TAB PO SCH (21:12)
[2021-04-18] MEDS: VENLAFAXINE HCL ER 75 MG CAP PO SCH (21:12)
[2021-04-19] MEDS: SODIUM CHLORIDE 0.9% 1,000 ML IV SCH ×3 (00:17→17:26)
[2021-04-19] MEDS: LEVOTHYROXINE 75 MCG TAB PO SCH (06:26)
[2021-04-19 07:34] LABS: Glucose,Whole Blood 138 mg/dL (75-99)
[2021-04-19] MEDS: INSULIN ASPART (NovoLOG) 100 UNIT/ML VIAL SQ SCH ×3 (08:15→17:27)
[2021-04-19] MEDS: TRIAMTERENE-HCTZ 37.5-25MG 1 EACH TAB PO SCH (08:47)
[2021-04-19] MEDS: INSULIN DETEMIR (LEVEMIR) 100 UNIT/ML SYR SQ SCH ×2 (08:47→20:43)
[2021-04-19] MEDS: TOPIRAMATE 100 MG TAB PO SCH ×2 (08:48→20:41)
[2021-04-19] MEDS: oxyCODONE-APAP 7.5-325MG 1 EACH TAB PO SCH ×3 (08:49→22:03)
[2021-04-19] MEDS: PANTOPRAZOLE 40 MG TABLET PO SCH (08:49)
[2021-04-19] MEDS: LORazepam 1 MG TAB PO SCH ×3 (08:49→22:03)
[2021-04-19] MEDS: NON FORMULARY DRUG (Empagliflozin [Jardiance] 25 MG Tablet) PO SCH (08:52)
[2021-04-19 09:24] LABS: African American GFR (CKD) 123.3 (60.0-200.0); Anion Gap 11.9 mmol/L (4.00-12.00); BUN/Creat Ratio 9.44 Ratio (12.00-20.00); Blood Urea Nitrogen 5.8 mg/dL (9.0-27.0); Calcium 8.2 mg/dL (8.7-10.3); Carbon Dioxide 22.3 mmol/L (21.6-31.8); Magnesium 1.9 mg/dL (1.5-2.4); Non-African American GFR(CKD) 106.4 (60.0-200.0); Potassium 3.5 mmol/L (3.5-5.5)
[2021-04-19] MEDS ORDERED: LIDOCAINE 1% (10MG/ML) FOR IV START INTRADERMA PRN (11:09)
--- NOTE | 2021-04-19 11:26 | P.PN ---
Progress Note - Text Progress Note Date: 04/19/21 Patient is resting comfortably in her bed. Her abdomen is soft. She is nontender. Per the nursing staff for constipation is improved. She'll continue receive supportive care.
[2021-04-19 11:55] LABS: Glucose,Whole Blood 97 mg/dL (75-99)
--- NOTE | 2021-04-19 13:38 | PN ---
PROGRESS NOTE DATE OF SERVICE: 04/19/2021 CHIEF COMPLAINT: Obstipation. HISTORY OF PRESENT ILLNESS: This lady continues to have difficulty passing stool. She had a barium enema yesterday which demonstrated no evidence of bowel obstruction at the colonic level. REVIEW OF SYSTEMS: She is still having some crampy abdominal pain. She is on clear liquids now. PHYSICAL EXAMINATION: Her chest is clear. Cardiac exam is normal. The abdomen is protuberant, soft and slightly tender throughout. IMPRESSION: 1. Obstipation. 2. Diabetes. PLAN: 1. Insulin is being withheld right now. 2. Continue to follow in hopes that she will soon start passing stool and be able to be discharged. MMODL / IJN: [id number] /
[2021-04-19] MEDS: LACTATED RINGERS 1,000 ML IV SCH (13:52)
[2021-04-19 16:44] LABS: Glucose,Whole Blood 88 mg/dL (75-99)
[2021-04-19 20:11] LABS: Glucose,Whole Blood 142 mg/dL (75-99)
[2021-04-19] MEDS: VENLAFAXINE HCL ER 75 MG CAP PO SCH (20:41)
[2021-04-19] MEDS: QUEtiapine 25 MG TAB PO SCH (20:41)
[2021-04-19] MEDS: MORPHINE SULFATE 4 MG/ML SYRINGE IV PRN (20:44)
[2021-04-20] MEDS: SODIUM CHLORIDE 0.9% 1,000 ML IV SCH ×3 (01:25→18:10)
[2021-04-20 07:24] LABS: Glucose,Whole Blood 89 mg/dL (75-99)
[2021-04-20] MEDS: PANTOPRAZOLE 40 MG TABLET PO SCH (07:24)
[2021-04-20] MEDS: LEVOTHYROXINE 75 MCG TAB PO SCH (07:24)
[2021-04-20] MEDS: INSULIN ASPART (NovoLOG) 100 UNIT/ML VIAL SQ SCH ×3 (07:26→18:09)
[2021-04-20] MEDS: NON FORMULARY DRUG (Empagliflozin [Jardiance] 25 MG Tablet) PO SCH (07:26)
[2021-04-20] MEDS: MORPHINE SULFATE 4 MG/ML SYRINGE IV PRN (07:35)
[2021-04-20] MEDS: oxyCODONE-APAP 7.5-325MG 1 EACH TAB PO SCH ×3 (09:52→22:19)
[2021-04-20] MEDS: LORazepam 1 MG TAB PO SCH ×3 (09:53→22:19)
[2021-04-20] MEDS: INSULIN DETEMIR (LEVEMIR) 100 UNIT/ML SYR SQ SCH ×2 (10:23→22:08)
[2021-04-20] MEDS: TRIAMTERENE-HCTZ 37.5-25MG 1 EACH TAB PO SCH (10:24)
[2021-04-20] MEDS: TOPIRAMATE 100 MG TAB PO SCH ×2 (10:24→21:12)
[2021-04-20] MEDS ORDERED: LACTULOSE 20 GM/30 ML CUP PO ONE (12:26)
--- NOTE | 2021-04-20 13:02 | P.PN ---
Progress Note - Text Progress Note Date: 04/20/21 Patient has complaints of constipation. On exam vital signs are stable. Abdomen soft. Patient will be given lactulose. We will see this helps her constipation.
[2021-04-20 13:20] LABS: Glucose,Whole Blood 90 mg/dL (75-99)
--- NOTE | 2021-04-20 13:48 | PN ---
PROGRESS NOTE DATE OF SERVICE: 04/20/2021 CHIEF COMPLAINT: Obstipation. HISTORY OF PRESENT ILLNESS: This lady continues to complain of the same abdominal pain, which is now getting worse. She states she is only passing a small amount of liquid stool. She has had no vomiting. She has had no fever or chills. PHYSICAL EXAM: Abdomen is protuberant. She has generalized abdominal pain with slight rebound. Bowel sounds are present. IMPRESSION: Obstipation. PLAN: 1. Repeat abdominal x-rays. 2. Repeat laboratory studies. 3. Add MiraLAX 1 scoop t.i.d. 4. She is probably a good candidate for Linzess, but is not on formulary. MMODL / IJN: [id number] /
[2021-04-20 14:11] LABS: Basophils # (A) 0.1 k/uL (0-0.2); Basophils % (A) 1 %; Eosinophils # (A) 0.3 k/uL (0-0.7); Eosinophils % (A) 4 %; HCT 41.7 % (34.0-46.0); Hypochromasia Slight; Lymphocytes # (A) 3.2 k/uL (1.0-4.8); Lymphocytes % (A) 40 %; MCH 26.9 pg (25.0-35.0); MCHC 31.2 g/dL (31.0-37.0); MCV 86.1 fL (80.0-100.0); Mean Platelet Volume 8.1; Monocytes # (A) 0.3 k/uL (0-1.0); Monocytes % (A) 4 %; Neutrophils # (A) 3.9 k/uL (1.3-7.7); Neutrophils % (A) 50 %; Platelet Count 310 k/uL (150-450); RBC 4.84 m/uL (3.80-5.40); RDW 15.4 % (11.5-15.5); WBC 7.9 k/uL (3.8-10.6)
[2021-04-20 14:23] LABS: ALT 22 U/L (4-34); AST 45 U/L (14-36); African American GFR (CKD) >90 (>60 ml/min/1.73 sqM); Albumin 3.2 g/dL (3.5-5.0); Alkaline Phosphatase 77 U/L (38-126); Anion Gap 5 mmol/L; Blood Urea Nitrogen 2 mg/dL (7-17); Calcium 7.9 mg/dL (8.4-10.2); Carbon Dioxide 22 mmol/L (22-30); Chloride 111 mmol/L (98-107); Glucose 110 mg/dL (74-99); Non-African American GFR(CKD) >90 (>60 ml/min/1.73 sqM); Potassium 3.5 mmol/L (3.5-5.1); Sodium 138 mmol/L (137-145); Total Bilirubin 0.3 mg/dL (0.2-1.3); Total Protein 5.8 g/dL (6.3-8.2)
--- NOTE | 2021-04-20 14:23 | XR ---
EXAMINATION TYPE: XR chest 2V DATE OF EXAM: 04/20/2021 COMPARISON: 01/04/2021 HISTORY: Short of breath TECHNIQUE: FINDINGS: Heart and mediastinum are normal. Lungs are clear. Diaphragm is normal. Bony thorax is norm al. IMPRESSION: Normal chest. No change.
--- NOTE | 2021-04-20 14:25 | XR ---
EXAMINATION TYPE: XR abdomen complete w decub DATE OF EXAM: 04/20/2021 COMPARISON: 04/17/2021 HISTORY: Abdominal pain TECHNIQUE: 4 views FINDINGS: There is no sign of intestinal obstruction or pneumoperitoneum. Fecal pattern is normal. Th ere are clips from cholecystectomy. There is no evidence of a mass. There are clips in the pelvis. Ninfa ng bases are clear. IMPRESSION: Nonacute abdomen. No adverse change.
[2021-04-20] MEDS: LACTATED RINGERS 1,000 ML IV SCH (14:43)
[2021-04-20] MEDS: polyethylene glycoL 3350 17 GM POWD.PACK PO SCH ×2 (16:31→22:18)
[2021-04-20 17:41] LABS: Glucose,Whole Blood 116 mg/dL (75-99)
[2021-04-20 21:05] LABS: Glucose,Whole Blood 115 mg/dL (75-99)
[2021-04-20] MEDS: QUEtiapine 25 MG TAB PO SCH (21:12)
[2021-04-20] MEDS: VENLAFAXINE HCL ER 75 MG CAP PO SCH (21:12)
[2021-04-21] MEDS: SODIUM CHLORIDE 0.9% 1,000 ML IV SCH ×2 (07:54→08:43)
[2021-04-21] MEDS: NON FORMULARY DRUG (Empagliflozin [Jardiance] 25 MG Tablet) PO SCH (07:59)
[2021-04-21] MEDS: LEVOTHYROXINE 75 MCG TAB PO SCH (08:16)
[2021-04-21] MEDS: PANTOPRAZOLE 40 MG TABLET PO SCH (08:16)
[2021-04-21 08:23] LABS: Glucose,Whole Blood 140 mg/dL (75-99)
[2021-04-21] MEDS: INSULIN ASPART (NovoLOG) 100 UNIT/ML VIAL SQ SCH ×2 (08:35→13:10)
[2021-04-21] MEDS: TOPIRAMATE 100 MG TAB PO SCH (08:48)
[2021-04-21] MEDS: polyethylene glycoL 3350 17 GM POWD.PACK PO SCH (08:48)
[2021-04-21] MEDS: oxyCODONE-APAP 7.5-325MG 1 EACH TAB PO SCH (08:48)
[2021-04-21] MEDS: LORazepam 1 MG TAB PO SCH (08:49)
[2021-04-21 08:53] VITALS: TEMP 98.2
[2021-04-21] MEDS ORDERED: LACTULOSE 20 GM/30 ML CUP PO ONE (09:30)
--- NOTE | 2021-04-21 09:46 | P.PN ---
<Emiliana Andrade - Last Filed: 04/21/21 09:27> Subjective Progress Note Date: 04/21/21 CHIEF COMPLAINT: Abdominal pain HISTORY OF PRESENT ILLNESS: This a patient who was admitted to the hospital with severe constipation and complaints of abdominal pain. She has received milk of magnesia molasses enemas and soapsuds enemas as well as a HalfLytely bowel prep with reported results of 2 small bowel movements. Patient had a barium enema that showed no bowel obstruction. Patient states she still has some abdominal discomfort. She states she is not passing flatus. She is tolerating lower fiber diet. She denies any nausea or vomiting. She's been afebrile. PHYSICAL EXAM: VITAL SIGNS: Reviewed GENERAL: Well-developed in no acute distress. HEENT: No sclera icterus. Extraocular movements grossly intact. Moist buccal mucosa. Head is atraumatic, normocephalic. Hears conversational speech. No nasal drainage. NECK: Supple without lymphadenopathy. CHEST: Non-labored respirations and equal bilateral excursions. CARDIOVASCULAR: Palpable 2+ radial pulses. ABDOMEN: Soft. Nondistended. Nontender. MUSCULOSKELETAL: No clubbing or cyanosis. NEUROLOGIC: No focal or lateralizing signs. Cranial nerves II through XII grossly intact. PSYCH: Appropriate affect. Alert and oriented to person, place and time. SKIN: Well perfused. Good skin turgor. ASSESSMENT: 1. Abdominal pain 2. Constipation with moderate stool burden noted on computed tomography scan 3. History of multiple abdominal surgeries 4. Elevated lactic acid resolved 5. History of chronic constipation 6. Hypokalemia, resolved 7. History of diabetes PLAN: 1. Continue low fiber diet 2. Encourage ambulation 3. Continue MiraLAX daily 4. Lactulose 20 g 1 5. Patient is status post a barium enema with no evidence of obstruction 6. Medicine service on consult for medical managemen 7. If patient has bowel movement, will plan for discharge later today or tomorrow The impression and plan of care has been dictated as directed. Dr. Hernandes I performed a history and examination of this patient, discussed the same with the dictator. I agree with the dictator's note ,documented as a scribe. Any additional findings or plans will be noted. Objective - Vital Signs Vital signs: Vital Signs Temp 98.2 F 04/21/21 07:45 Pulse 95 04/21/21 07:45 Resp 14 04/21/21 07:45 BP 115/75 04/21/21 07:45 Pulse Ox 95 04/21/21 07:45 Intake & Output 04/20/21 04/21/21 04/21/21 18:59 06:59 18:59 Intake Total 500 222 240 Balance 500 222 240 Intake: Oral 500 222 240 Other: Voiding Method Toilet Toilet # Voids 1 - Labs CBC & Chem 7: 04/20/21 13:45 04/20/21 13:45 Labs: Abnormal Lab Results - Last 24 Hours (Table) 04/20/21 04/20/21 04/20/21 Range/Units 13:45 17:40 21:04 Chloride 111 H (98-107) mmol/L BUN 2 L (7-17) mg/dL Glucose 110 H (74-99) mg/dL POC Glucose (mg/dL) 116 H 115 H (75-99) mg/dL Calcium 7.9 L (8.4-10.2) mg/dL AST 45 H (14-36) U/L Total Protein 5.8 L (6.3-8.2) g/dL Albumin 3.2 L (3.5-5.0) g/dL 04/21/21 Range/Units 08:21 Chloride (98-107) mmol/L BUN (7-17) mg/dL Glucose (74-99) mg/dL POC Glucose (mg/dL) 140 H (75-99) mg/dL Calcium (8.4-10.2) mg/dL AST (14-36) U/L Total Protein (6.3-8.2) g/dL Albumin (3.5-5.0) g/dL Microbiology - Last 24 Hours (Table) 04/16/21 13:30 Blood Culture - Preliminary Blood No Growth after 96 hours 04/16/21 13:15 Blood Culture - Preliminary Blood No Growth after 96 hours <Yarelis Hernandes - Last Filed: 04/21/21 10:20> Subjective CHIEF COMPLAINT: Large bowel obstruction HISTORY OF PRESENT ILLNESS: The patient is a 50-year-old female admitted for large bowel obstruction. Patient has personal history of chronic constipation including chronic abdominal pain. She was placed on bowel regimen. Over the weekend should multiple bowel movements. Patient this morning still reported no passage of flatus. She reported very small bowel movements. Her IV had infiltrated along her right arm. ROS: Morbidly obese. No fevers or chills. No new chest pain. No productive sputum PHYSICAL EXAM: VITAL SIGNS: Reviewed CONSTITUTIONAL: Well developed and in no acute distress. EYES: Conjuctivae without sclera icterus. Extraocular movements grossly intact. HEAD, EARS, NOSE, THROAT: Moist buccal mucosa. Head is atraumatic, normocephalic. Hears conversational speech. No nasal drainage. NECK: No gross thyroidomegaly. No jugular venous distention. RESPIRATORY: Non-labored respirations and equal bilateral excursions. CARDIOVASCULAR: Palpable 2+ radial pulses. Regular rate. Regular rhythm. ABDOMEN: Protuberant. No peritonitis. MUSCULOSKELETAL: No gross deformity of the lower extremities noted. No clubbing. No cyanosis. Swelling noted along the right volar hand. SKIN: Good skin turgor. Well perfused. NEUROLOGIC: Cranial nerves II through XII grossly intact. No focal or latera lizing signs. PSYCH: Appropriate affect. Alert and oriented to person, place and time. CLINICAL LABS: Reviewed. WBC normal. ASSESSMENT: 1. Large bowel obstruction. PLAN: 1. Lactulose and additional options for bowel regimen reviewed. 2. Discharge pending large bowel movement. ADDENDUM: Nurse later reported that after initial assessment, patient had a large bowel movement and reported feeling much better. Discharge in progress. Objective - Vital Signs Vital signs: Vital Signs Temp 98.2 F 04/21/21 07:45 Pulse 95 04/21/21 07:45 Resp 14 04/21/21 07:45 BP 115/75 04/21/21 07:45 Pulse Ox 95 04/21/21 07:45 Intake & Output 04/20/21 04/21/21 04/21/21 18:59 06:59 18:59 Intake Total 500 222 240 Balance 500 222 240 Intake: Oral 500 222 240 Other: Voiding Method Toilet Toilet # Voids 1 1 # Bowel Movements 1 - Labs CBC & Chem 7: 04/20/21 13:45 04/20/21 13:45 Labs: Abnormal Lab Results - Last 24 Hours (Table) 04/20/21 04/20/21 04/20/21 Range/Units 13:45 17:40 21:04 Chloride 111 H (98-107) mmol/L BUN 2 L (7-17) mg/dL Glucose 110 H (74-99) mg/dL POC Glucose (mg/dL) 116 H 115 H (75-99) mg/dL Calcium 7.9 L (8.4-10.2) mg/dL AST 45 H (14-36) U/L Total Protein 5.8 L (6.3-8.2) g/dL Albumin 3.2 L (3.5-5.0) g/dL 04/21/21 Range/Units 08:21 Chloride (98-107) mmol/L BUN (7-17) mg/dL Glucose (74-99) mg/dL POC Glucose (mg/dL) 140 H (75-99) mg/dL Calcium (8.4-10.2) mg/dL AST (14-36) U/L Total Protein (6.3-8.2) g/dL Albumin (3.5-5.0) g/dL Microbiology - Last 24 Hours (Table) 04/16/21 13:30 Blood Culture - Preliminary Blood No Growth after 96 hours 04/16/21 13:15 Blood Culture - Preliminary Blood No Growth after 96 hours Assessment and Plan (1) Large bowel obstruction Current Visit: Yes Status: Acute Code(s): K56.609 - UNSP INTESTNL OBST, UNSP TO PARTIAL VERSUS COMPLETE OBST SNOMED Code(s): 463754732 (2) Obstruction of large intestine due to peritoneal adhesions Current Visit: Yes Status: Acute Code(s): K56.50 - INTESTNL ADHESIONS, UNSP TO PARTIAL VERSUS COMPLETE OBST SNOMED Code(s): 262462402 (3) Hyperglycemia due to type 2 diabetes mellitus Current Visit: Yes Status: Acute Code(s): E11.65 - TYPE 2 DIABETES MELLITUS WITH HYPERGLYCEMIA SNOMED Code(s): 143996085786353 (4) Morbid (severe) obesity due to excess calories Current Visit: Yes Status: Acute Code(s): E66.01 - MORBID (SEVERE) OBESITY DUE TO EXCESS CALORIES SNOMED Code(s): 788944219 (5) BMI 45.0-49.9, adult Current Visit: Yes Status: Acute Code(s): Z68.42 - BODY MASS INDEX [BMI] 45.0-49.9, ADULT SNOMED Code(s): 821482489 (6) Depressed bipolar I disorder Current Visit: Yes Status: Acute Code(s): F31.9 - BIPOLAR DISORDER, UNSPECIFIED SNOMED Code(s): 19227886 (7) Constipation Current Visit: Yes Status: Acute Code(s): K59.00 - CONSTIPATION, UNSPECIFIED SNOMED Code(s): 79528178 (8) Lactic acidosis Current Visit: Yes Status: Acute Code(s): E87.2 - ACIDOSIS SNOMED Code(s): 36373676
--- NOTE | 2021-04-21 10:10 | P.DS ---
Providers Date of admission: 04/16/21 12:25 Expected date of discharge: 04/21/21 Attending physician: Yarelis Hernandes Consults: 04/17/21 14:41 Consult Physician Routine Consulting Provider: Samantha Mccoy Consult Reason/Comments: Constipation Do you want consulting provider notified?: Yes 04/18/21 13:50 Consult Physician Routine Consulting Provider: Ramin Lopes Consult Reason/Comments: medical management, diabetes Do you want consulting provider notified?: Already Contacted Primary care physician: Ramin Lopes Plan - Discharge Summary New Discharge Prescriptions: New RX: Lactulose [Cephulac] 30 gm PO BID #480 ml Magnesium Hydroxide [Milk of Magnesia Concentrate] 2,400 mg PO DAILY #480 ml Continue RX: Omeprazole [PriLOSEC] 20 mg PO DAILY RX: Atorvastatin [Lipitor] 80 mg PO DAILY RX: Levothyroxine Sodium [Synthroid] 150 mcg PO DAILY RX: Aspirin [Adult Low Dose Aspirin EC] 81 mg PO DAILY RX: Insulin Glargine,Hum.rec.anlog [Lantus Solostar Pen] 80 unit SQ BID RX: Venlafaxine HCl [Effexor XR] 75 mg PO HS RX: Topiramate [Topamax] 100 mg PO BID RX: metFORMIN HCL [Glucophage] 1,000 mg PO BID RX: Empagliflozin [Jardiance] 25 mg PO DAILY RX: Triamterene/Hydrochlorothiazid [Triamterene-Hctz 37.5-25 mg Tb] 1 tab PO DAILY RX: QUEtiapine FUMARATE [SEROquel] 25 mg PO HS RX: Ibuprofen [Motrin] 800 mg PO TID PRN PRN Reason: Pain RX: Potassium Chloride ER [K-Dur 20] 20 meq PO 5XD Vitamin D3 50,000 Units 1,250 mcg PO Q30D RX: oxyCODONE-APAP 7.5-325MG [Percocet 7.5-325 mg] 1 tab PO TID RX: Ondansetron HCl [Zofran] 4 mg PO TID PRN PRN Reason: Nausea And Vomiting RX: LORazepam [Ativan] 1 mg PO TID RX: Insulin Aspart [NovoLOG Flexpen] 16 units SQ AC-TID RX: Dulaglutide [Trulicity] 0.75 mg SQ WE Discharge Medication List RX: Omeprazole [PriLOSEC] 20 mg PO DAILY 01/12/19 [History] RX: Aspirin [Adult Low Dose Aspirin EC] 81 mg PO DAILY 11/10/19 [History] RX: Atorvastatin [Lipitor] 80 mg PO DAILY 11/10/19 [History] RX: Levothyroxine Sodium [Synthroid] 150 mcg PO DAILY 11/10/19 [History] RX: Insulin Glargine,Hum.rec.anlog [Lantus Solostar Pen] 80 unit SQ BID 05/14/20 [History] RX: Empagliflozin [Jardiance] 25 mg PO DAILY 12/11/20 [History] RX: Topiramate [Topamax] 100 mg PO BID 12/11/20 [History] RX: Venlafaxine HCl [Effexor XR] 75 mg PO HS 12/11/20 [History] RX: metFORMIN HCL [Glucophage] 1,000 mg PO BID 12/11/20 [History] Vitamin D3 50,000 Units 1,250 mcg PO Q30D 12/11/20 [History] RX: oxyCODONE-APAP 7.5-325MG [Percocet 7.5-325 mg] 1 tab PO TID 01/03/21 [History] RX: Ondansetron HCl [Zofran] 4 mg PO TID PRN 01/18/21 [History] RX: Triamterene/Hydrochlorothiazid [Triamterene-Hctz 37.5-25 mg Tb] 1 tab PO DAILY 02/09/21 [History] RX: Dulaglutide [Trulicity] 0.75 mg SQ WE 04/16/21 [History] RX: Ibuprofen [Motrin] 800 mg PO TID PRN 04/16/21 [History] RX: Insulin Aspart [NovoLOG Flexpen] 16 units SQ AC-TID 04/16/21 [History] RX: LORazepam [Ativan] 1 mg PO TID 04/16/21 [History] RX: Potassium Chloride ER [K-Dur 20] 20 meq PO 5XD 04/16/21 [History] RX: QUEtiapine FUMARATE [SEROquel] 25 mg PO HS 04/16/21 [History] Magnesium Hydroxide [Milk of Magnesia Concentrate] 2,400 mg PO DAILY #480 ml 04/21/21 [Rx] RX: Lactulose [Cephulac] 30 gm PO BID #480 ml 04/21/21 [Rx] Follow up Appointment(s)/Referral(s): Ramin Lopes MD [Primary Care Provider] - 1-2 days Yarelis Hernandes MD [STAFF PHYSICIAN] - 05/13/21 Patient Instructions/Handouts: Constipation (DC), Obstipation (DC) Discharge Disposition: HOME SELF-CARE
[2021-04-21 12:52] LABS: Glucose,Whole Blood 168 mg/dL (75-99)
[2021-04-21] MEDS: TRIAMTERENE-HCTZ 37.5-25MG 1 EACH TAB PO SCH (13:15)
[2021-04-21 13:22] VITALS: BP 123/82; PULSE 96; RESP 18
--- NOTE | 2021-04-21 19:22 | PN ---
PROGRESS NOTE DATE OF SERVICE: 04/21/2021 CHIEF COMPLAINT: Constipation. HISTORY OF PRESENT ILLNESS: This lady is doing fairly well. She has been passing some stool. She has had no fever or chills. PHYSICAL EXAMINATION: Her abdomen is protuberant and slightly tender. There are no masses or visceromegaly. Extremities are normal. Neurologically she is intact. IMPRESSION: 1. Constipation. 2. Diabetes. PLAN: No change in her management at this time. MMODL / IJN: [id number] /
[2021-04-23] MEDS ORDERED: NON FORMULARY DRUG (Dulaglutide [Trulicity] 0.75 MG/0.5 ML Each) SQ SCH (09:00)
== END 2021-04-21 13:33 | disposition home or self-care (01) | DRG 389 ==
LOC: EC 09:33 → 6NMEDSUR 12:24 → OBSVTOIN 12:25 → 6NMEDSUR 21:38 → 6PED 04-19 17:06
PROVIDERS: ADMIT Surgery Plastic and Reconstructive Surgery; ATTEND Surgery Plastic and Reconstructive Surgery
DX: K56.50 Intestinal adhesions [bands], unspecified as to partial versus complete obstruction (principal); Z68.42 Body mass index [BMI] 45.0-49.9, adult; E87.2 Acidosis; F31.30 Bipolar disorder, current episode depressed, mild or moderate severity, unspecified; N39.0 Urinary tract infection, site not specified; K56.7 Ileus, unspecified; E11.65 Type 2 diabetes mellitus with hyperglycemia; E66.01 Morbid (severe) obesity due to excess calories; E78.5 Hyperlipidemia, unspecified; E87.6 Hypokalemia; F25.9 Schizoaffective disorder, unspecified; F41.0 Panic disorder [episodic paroxysmal anxiety]; K66.0 Peritoneal adhesions (postprocedural) (postinfection); Z20.822 Contact with and (suspected) exposure to COVID-19; F41.1 Generalized anxiety disorder; K21.9 Gastro-esophageal reflux disease without esophagitis; I11.9 Hypertensive heart disease without heart failure; E03.9 Hypothyroidism, unspecified; G89.4 Chronic pain syndrome; Z79.4 Long term (current) use of insulin; Z79.82 Long term (current) use of aspirin; Z79.890 Hormone replacement therapy; Z79.899 Other long term (current) drug therapy; Z82.49 Family history of ischemic heart disease and other diseases of the circulatory system; Z83.3 Family history of diabetes mellitus; Z87.440 Personal history of urinary (tract) infections; Z88.0 Allergy status to penicillin; Z90.710 Acquired absence of both cervix and uterus
CPT/HCPCS: 36415; 71046; 74019; 74021; 74177; 74270; 80048; 80053; 81001; 82150; 83605; 83690; 83735; 85025; 87040; 87077; 87086; 87186; 87635; 96361; 96374; 96375; 99285

== ENCOUNTER 2021-04-30 21:07 | Observation (INO) | payer OTHER ==
[2021-04-30 21:56] LABS: Basophils # (A) 0.1 k/uL (0-0.2); Basophils % (A) 1 %; Eosinophils # (A) 0.4 k/uL (0-0.7); Eosinophils % (A) 3 %; HCT 39.9 % (34.0-46.0); HGB 13.5 gm/dL (11.4-16.0); Lymphocytes # (A) 3.7 k/uL (1.0-4.8); Lymphocytes % (A) 30 %; MCH 27.2 pg (25.0-35.0); MCHC 33.8 g/dL (31.0-37.0); Mean Platelet Volume 9.2; Monocytes # (A) 0.4 k/uL (0-1.0); Monocytes % (A) 3 %; Neutrophils # (A) 7.7 k/uL (1.3-7.7); Neutrophils % (A) 62 %; Platelet Count 294 k/uL (150-450); RBC 4.96 m/uL (3.80-5.40); RDW 15.5 % (11.5-15.5); WBC 12.3 k/uL (3.8-10.6)
[2021-04-30 22:15] LABS: ALT 23 U/L (4-34); AST 45 U/L (14-36); African American GFR (CKD) >90 (>60 ml/min/1.73 sqM); Alkaline Phosphatase 105 U/L (38-126); Amylase 49 U/L (30-110); Blood Urea Nitrogen 18 mg/dL (7-17); Calcium 9.6 mg/dL (8.4-10.2); Carbon Dioxide 23 mmol/L (22-30); Chloride 103 mmol/L (98-107); Glucose 112 mg/dL (74-99); Lipase 234 U/L (23-300); Non-African American GFR(CKD) >90 (>60 ml/min/1.73 sqM); Total Bilirubin 0.3 mg/dL (0.2-1.3); Total Protein 6.8 g/dL (6.3-8.2)
[2021-04-30 22:19] LABS: Anion Gap 12 mmol/L; MCV 80.4 fL (80.0-100.0); Potassium 3.4 mmol/L (3.5-5.1); Sodium 138 mmol/L (137-145)
--- NOTE | 2021-04-30 22:24 | XR ---
EXAMINATION TYPE: XR KUB DATE OF EXAM: 04/30/2021 COMPARISON: 04/20/2021 HISTORY: Abdominal pain TECHNIQUE: 4 views FINDINGS: There is no evidence of intestinal obstruction or pneumoperitoneum. Fecal pattern is normal . There is no evidence of a mass. Lung bases are clear. There are no calcifications over the kidneys. There is clips probably from cholecystectomy. There are surgical clips in the pelvis. IMPRESSION: Nonacute abdomen. No adverse change.
[2021-04-30] MEDS ORDERED: SODIUM CHLORIDE 0.9% 1,000 ML IV ONE (22:27)
[2021-04-30 22:43] LABS: Appearance,Urine Clear (Clear); Bilirubin,Urine Negative (Negative); Blood,Urine Negative (Negative); Color,Urine Light Yellow; Glucose,Urine (UA) 4+ (Negative); Ketones,Urine Negative (Negative); Leukocyte Esterase,Urine Negative (Negative); Nitrite,Urine Negative (Negative); PH, Urine 7.5 (5.0-8.0); Protein,Urine Negative (Negative); Specific Gravity,Urine 1.028 (1.001-1.035); Urobilinogen,Urine <2.0 mg/dL (<2.0)
--- NOTE | 2021-04-30 22:44 | ED ---
Abdominal Pain HPI - General Chief Complaint: Abdominal Pain Stated Complaint: Abdominal Pain Time Seen by Provider: 04/30/21 21:11 Source: patient, EMS Mode of arrival: EMS Limitations: no limitations - History of Present Illness Initial Comments: This patient is a 50-year-old woman who presents to have reevaluation for abdominal pain. She states this been going on a few weeks. She indicates the periumbilical area and also indicates right lower quadrant. She had seen her physician, Dr. Lopes yesterday on was not feeling any better. She had been admitted to hospital previous week. In addition patient notes that she has not had a bowel movement since Wednesday. MD Complaint: abdominal pain Onset/Timin -: week(s) Location: periumbilical, RLQ Radiation: none Migration to: no migration Severity: moderate Quality: cramping, aching Consistency: constant Improves With: nothing Worsens With: nothing Associated Symptoms: nausea - Related Data Home Medications Medication Instructions Recorded Confirmed Omeprazole [PriLOSEC] 20 mg PO DAILY 01/12/19 04/30/21 Aspirin [Adult Low Dose Aspirin EC] 81 mg PO DAILY 11/10/19 04/30/21 Atorvastatin [Lipitor] 80 mg PO DAILY 11/10/19 04/30/21 Levothyroxine Sodium [Synthroid] 150 mcg PO DAILY 11/10/19 04/30/21 Insulin Glargine,Hum.rec.anlog 80 unit SQ BID 05/14/20 04/30/21 [Lantus Solostar Pen] Empagliflozin [Jardiance] 25 mg PO DAILY 12/11/20 04/30/21 Topiramate [Topamax] 100 mg PO BID 12/11/20 04/30/21 Venlafaxine HCl [Effexor XR] 75 mg PO HS 12/11/20 04/30/21 Vitamin D3 50,000 Units 1,250 mcg PO Q30D 12/11/20 04/30/21 metFORMIN HCL [Glucophage] 1,000 mg PO BID 12/11/20 04/30/21 oxyCODONE-APAP 7.5-325MG [Percocet 1 tab PO TID 01/03/21 04/30/21 7.5-325 mg] Ondansetron HCl [Zofran] 4 mg PO TID PRN 01/18/21 04/30/21 Triamterene/Hydrochlorothiazid 1 tab PO DAILY 02/09/21 04/30/21 [Triamterene-Hctz 37.5-25 mg Tb] Dulaglutide [Trulicity] 0.75 mg SQ WE 04/16/21 04/30/21 Ibuprofen [Motrin] 800 mg PO TID PRN 04/16/21 04/30/21 Insulin Aspart [NovoLOG Flexpen] 16 units SQ AC-TID 04/16/21 04/30/21 LORazepam [Ativan] 1 mg PO TID 04/16/21 04/30/21 Potassium Chloride ER [K-Dur 20] 20 meq PO 5XD 04/16/21 04/30/21 QUEtiapine FUMARATE [SEROquel] 25 mg PO HS 04/16/21 04/30/21 Amoxicillin 250 mg PO Q8H 04/30/21 04/30/21 Docusate [Colace] 100 mg PO BID 04/30/21 04/30/21 polyethylene glycoL 3350 [Miralax] 17 gm PO DAILY 04/30/21 04/30/21 Previous Rx's Medication Instructions Recorded Lactulose [Cephulac] 30 gm PO BID #480 ml 04/21/21 Allergies Allergy/AdvReac Type Severity Reaction Status Date / Time bupropion [From Wellbutrin] Allergy Rash/Hives Verified 04/30/21 22:46 cephalexin [From Keflex] Allergy Rash/Hives Verified 04/30/21 22:46 propoxyphene Allergy Rash/Hives Verified 04/30/21 22:46 [From Darvocet-N] Review of Systems ROS Statement: Those systems with pertinent positive or pertinent negative responses have been documented in the HPI. ROS Other: All systems not noted in ROS Statement are negative. Constitutional: Denies: fever, chills Respiratory: Denies: cough, dyspnea Cardiovascular: Denies: chest pain, palpitations, edema Gastrointestinal: Reports: abdominal pain, nausea, constipation. Denies: vomiting, diarrhea, melena, hematochezia Genitourinary: Denies: dysuria, hematuria Musculoskeletal: Denies: back pain Skin: Denies: rash Neurological: Denies: headache, weakness Past Medical History Past Medical History: Diabetes Mellitus, GERD/Reflux, Hyperlipidemia, Thyroid Disorder Additional Past Medical History / Comment(s): hx ventral hernia, frequent uti's,twisted small bowel, HYPOKALEMIA History of Any Multi-Drug Resistant Organisms: None Reported Past Surgical History: Bowel Resection, Section, Cholecystectomy, Hernia Repair, Hysterectomy, Joint Replacement, Orthopedic Surgery Additional Past Surgical History / Comment(s): bilat knees replaced,. thymus gland removal,. ventral hernia repair w/ mesh. COLONOSCOPY/EGD Past Anesthesia/Blood Transfusion Reactions: No Reported Reaction Additional Past Anesthesia/Blood Transfusion Reaction / Comment(s): no problems with prior blood transfusion in 1994 Past Psychological History: Anxiety, Depression, Panic Disorder, PTSD, Schizoaffective Disorder, Schizophrenia Smoking Status: Never smoker Past Alcohol Use History: None Reported Past Drug Use History: None Reported - Past Family History Mother Family Medical History: Cancer Additional Family Medical History / Comment(s): lung Father Family Medical History: Diabetes Mellitus, Myocardial Infarction ([place]) General Exam Limitations: no limitations General appearance: alert, in no apparent distress Head exam: Present: atraumatic, normocephalic Eye exam: Present: normal appearance. Absent: scleral icterus, conjunctival injection Respiratory exam: Present: normal lung sounds bilaterally. Absent: respiratory distress, wheezes, rales, rhonchi, stridor Cardiovascular Exam: Present: regular rate, normal rhythm, normal heart sounds. Absent: systolic murmur, diastolic murmur, rubs, gallop GI/Abdominal exam: Present: soft, tenderness (Mild lower abdominal tenderness without rebound or guarding), normal bowel sounds. Absent: distended, guarding, rebound, rigid, mass, pulsatile mass, hernia Extremities exam: Present: normal inspection, normal capillary refill. Absent: pedal edema, calf tenderness Back exam: Present: normal inspection. Absent: CVA tenderness (R), CVA tenderness (L) Neurological exam: Present: alert Skin exam: Present: warm, dry, intact, normal color. Absent: rash Course Vital Signs 04/30/21 05/01/21 21:17 06:46 Temperature 98.2 F 97.9 F Pulse Rate 92 82 Respiratory 16 17 Rate Blood Pressure 118/65 128/79 O2 Sat by Pulse 96 97 Oximetry Medical Decision Making - Lab Data Result diagrams: 04/30/21 21:43 04/30/21 21:43 Lab Results 12/06/2004/30/21 04/30/21 Range/Units 21:43 21:43 21:43 WBC 12.3 H (3.8-10.6) k/uL RBC 4.96 (3.80-5.40) m/uL Hgb 13.5 (11.4-16.0) gm/dL Hct 39.9 (34.0-46.0) % MCV 80.4 D (80.0-100.0) fL MCH 27.2 (25.0-35.0) pg MCHC 33.8 (31.0-37.0) g/dL RDW 15.5 (11.5-15.5) % Plt Count 294 (150-450) k/uL MPV 9.2 Neutrophils % 62 % Lymphocytes % 30 % Monocytes % 3 % Eosinophils % 3 % Basophils % 1 % Neutrophils # 7.7 (1.3-7.7) k/uL Lymphocytes # 3.7 (1.0-4.8) k/uL Monocytes # 0.4 (0-1.0) k/uL Eosinophils # 0.4 (0-0.7) k/uL Basophils # 0.1 (0-0.2) k/uL Sodium 138 (137-145) mmol/L Potassium 3.4 L (3.5-5.1) mmol/L Chloride 103 (98-107) mmol/L Carbon Dioxide 23 (22-30) mmol/L Anion Gap 12 mmol/L BUN 18 H (7-17) mg/dL Creatinine 0.74 (0.52-1.04) mg/dL Est GFR (CKD-EPI)AfAm >90 (>60 ml/min/1.73 sqM) Est GFR (CKD-EPI)NonAf >90 (>60 ml/min/1.73 sqM) Glucose 112 H (74-99) mg/dL Lactic Ac Sepsis Rflx Plasma Lactic Acid Shayan 3.3 H* (0.7-2.0) mmol/L Calcium 9.6 (8.4-10.2) mg/dL Total Bilirubin 0.3 (0.2-1.3) mg/dL AST 45 H (14-36) U/L ALT 23 (4-34) U/L Alkaline Phosphatase 105 (38-126) U/L Total Protein 6.8 (6.3-8.2) g/dL Albumin 4.0 (3.5-5.0) g/dL Amylase 49 (30-110) U/L Lipase 234 (23-300) U/L Urine Color Urine Appearance (Clear) Urine pH (5.0-8.0) Ur Specific [place] (1.001-1.035) Urine Protein (Negative) Urine Glucose (UA) (Negative) Urine Ketones (Negative) Urine Blood (Negative) Urine Nitrite (Negative) Urine Bilirubin (Negative) Urine Urobilinogen (<2.0) mg/dL Ur Leukocyte Esterase (Negative) Urine HCG, Qual (Not Detectd) 04/30/21 04/30/21 04/30/21 Range/Units 22:07 22:07 22:23 WBC (3.8-10.6) k/uL RBC (3.80-5.40) m/uL Hgb (11.4-16.0) gm/dL Hct (34.0-46.0) % MCV (80.0-100.0) fL MCH (25.0-35.0) pg MCHC (31.0-37.0) g/dL RDW (11.5-15.5) % Plt Count (150-450) k/uL MPV Neutrophils % % Lymphocytes % % Monocytes % % Eosinophils % % Basophils % % Neutrophils # (1.3-7.7) k/uL Lymphocytes # (1.0-4.8) k/uL Monocytes # (0-1.0) k/uL Eosinophils # (0-0.7) k/uL Basophils # (0-0.2) k/uL Sodium (137-145) mmol/L Potassium (3.5-5.1) mmol/L Chloride (98-107) mmol/L Carbon Dioxide (22-30) mmol/L Anion Gap mmol/L BUN (7-17) mg/dL Creatinine (0.52-1.04) mg/dL Est GFR (CKD-EPI)AfAm (>60 ml/min/1.73 sqM) Est GFR (CKD-EPI)NonAf (>60 ml/min/1.73 sqM) Glucose (74-99) mg/dL Lactic Ac Sepsis Rflx Y Plasma Lactic Acid Shayan (0.7-2.0) mmol/L Calcium (8.4-10.2) mg/dL Total Bilirubin (0.2-1.3) mg/dL AST (14-36) U/L ALT (4-34) U/L Alkaline Phosphatase (38-126) U/L Total Protein (6.3-8.2) g/dL Albumin (3.5-5.0) g/dL Amylase (30-110) U/L Lipase (23-300) U/L Urine Color Light Yellow Urine Appearance Clear (Clear) Urine pH 7.5 (5.0-8.0) Ur Specific [place] 1.028 (1.001-1.035) Urine Protein Negative (Negative) Urine Glucose (UA) 4+ H (Negative) Urine Ketones Negative (Negative) Urine Blood Negative (Negative) Urine Nitrite Negative (Negative) Urine Bilirubin Negative (Negative) Urine Urobilinogen <2.0 (<2.0) mg/dL Ur Leukocyte Esterase Negative (Negative) Urine HCG, Qual Not Detected (Not Detectd) 05/01/21 05/01/21 05/01/21 Range/Units 01:00 01:33 04:31 WBC (3.8-10.6) k/uL RBC (3.80-5.40) m/uL Hgb (11.4-16.0) gm/dL Hct (34.0-46.0) % MCV (80.0-100.0) fL MCH (25.0-35.0) pg MCHC (31.0-37.0) g/dL RDW (11.5-15.5) % Plt Count (150-450) k/uL MPV Neutrophils % % Lymphocytes % % Monocytes % % Eosinophils % % Basophils % % Neutrophils # (1.3-7.7) k/uL Lymphocytes # (1.0-4.8) k/uL Monocytes # (0-1.0) k/uL Eosinophils # (0-0.7) k/uL Basophils # (0-0.2) k/uL Sodium (137-145) mmol/L Potassium (3.5-5.1) mmol/L Chloride (98-107) mmol/L Carbon Dioxide (22-30) mmol/L Anion Gap mmol/L BUN (7-17) mg/dL Creatinine (0.52-1.04) mg/dL Est GFR (CKD-EPI)AfAm (>60 ml/min/1.73 sqM) Est GFR (CKD-EPI)NonAf (>60 ml/min/1.73 sqM) Glucose (74-99) mg/dL Lactic Ac Sepsis Rflx Y Plasma Lactic Acid Shayan 2.9 H* 1.4 (0.7-2.0) mmol/L Calcium (8.4-10.2) mg/dL Total Bilirubin (0.2-1.3) mg/dL AST (14-36) U/L ALT (4-34) U/L Alkaline Phosphatase (38-126) U/L Total Protein (6.3-8.2) g/dL Albumin (3.5-5.0) g/dL Amylase (30-110) U/L Lipase (23-300) U/L Urine Color Urine Appearance (Clear) Urine pH (5.0-8.0) Ur Specific [place] (1.001-1.035) Urine Protein (Negative) Urine Glucose (UA) (Negative) Urine Ketones (Negative) Urine Blood (Negative) Urine Nitrite (Negative) Urine Bilirubin (Negative) Urine Urobilinogen (<2.0) mg/dL Ur Leukocyte Esterase (Negative) Urine HCG, Qual (Not Detectd) Disposition Clinical Impression: Abdominal pain, Lactic acidosis Disposition: HOME SELF-CARE Condition: Fair Instructions (If sedation given, give patient instructions): Abdominal Pain (ED) Is patient prescribed a controlled substance at d/c from ED?: No Referrals: Ramin Lopes MD [Primary Care Provider] - 1-2 days
--- NOTE | 2021-04-30 23:31 | CT ---
EXAMINATION TYPE: CT abdomen pelvis wo con DATE OF EXAM: 04/30/2021 COMPARISON: 04/16/2021 HISTORY: RLQ pain CT DLP: 1749.9 mGycm Automated exposure control for dose reduction was used. Images obtained from the diaphragm to the floor the pelvis with no contrast. FINDINGS: Lung bases are clear. There is no pleural effusion. Heart size is normal. There is no pericardial eff usion. There is some fatty infiltration of the liver. Spleen is intact. There is small calcified splenic gra nuloma. Stomach is intact. There is no pancreatic mass. There are clips from cholecystectomy. The int rahepatic bile ducts are not dilated. Liver is enlarged and measures 25.5 cm in length. There is no adrenal mass. Kidneys have normal size. There is no hydronephrosis. Ureters are not dilat ed. There is no retroperitoneal adenopathy. Bladder distends smoothly. There is no inguinal hernia. T here is no free fluid in the pelvis. There is no evidence of a pelvic mass. Appendix not seen. No sig n of thickened appendix. There is no mesenteric edema. There is no ascites or free air. There is no bowel obstruction. The lumbar vertebra have normal alignment. Disc spaces are fairly normal. Posterior elements are inta ct. There is no compression fracture. Hip joints are intact. IMPRESSION: Hepatomegaly. Fatty infiltration of the liver. No acute abnormality in the abdomen pelvis. There is c learing of the distal tendon small bowel loops compared to old exam.
[2021-05-01] MEDS ORDERED: DICYCLOMINE 10 MG/ML 2 ML AMP IM STA (00:42)
[2021-05-01] MEDS ORDERED: MAGNESIUM CITRATE 296 ML BOTTLE PO ONE (02:29)
[2021-05-01] MEDS ORDERED: ACETAMINOPHEN TAB 325 MG TAB PO PRN (07:05)
[2021-05-01] MEDS ORDERED: NALOXONE 0.4 MG/ML 1 ML VIAL IV PRN (07:05)
[2021-05-01] MEDS: FAMOTIDINE 20 MG TAB PO SCH ×2 (07:29→19:54)
[2021-05-01] MEDS: SODIUM CHLORIDE 0.9% 1,000 ML IV SCH ×3 (07:29→23:49)
[2021-05-01] MEDS: MORPHINE SULFATE 4 MG/ML SYRINGE IV PRN ×2 (08:19→17:12)
[2021-05-01] MEDS ORDERED: POTASSIUM CHLORIDE ER 20 MEQ TAB.ER PO STA (08:26)
[2021-05-01] MEDS: ONDANSETRON 4 MG/2 ML VIAL IVP PRN ×2 (09:38→19:54)
[2021-05-01] MEDS ORDERED: LORazepam 1 MG TAB PO SCH (11:00)
[2021-05-01] MEDS: METOCLOPRAMIDE 5 MG/ML 2 ML VIAL IVP SCH ×2 (12:21→18:21)
[2021-05-01 12:55] LABS: Glucose,Whole Blood 105 mg/dL (75-99)
--- NOTE | 2021-05-01 14:52 | P.GSCN ---
History of Present Illness Consult date: 05/01/21 History of present illness: CHIEF COMPLAINT: Abdominal pain HISTORY OF PRESENT ILLNESS: This is a 50-year-old female with history of constipation issues since childhood, recent hospitalization with constipation and large bowel obstruction secondary to adhesions. Patient discharged home on a bowel regimen that included the lactulose and milk of magnesia. Patient rep orts that she has been taking this medications. She has been having bowel movements. However she is now having right sided abdominal pain. The pain does not radiate. She reports the pain is severe and sometimes she crawls into a position. She reports decrease in appetite. She does admit to nausea. She denies any vomiting. She did get magnesium citrate in the ER with positive results. She had a computed tomography scan of the abdomen and pelvis that demonstrated no acute abnormality. Surgical service was requested for abdominal pain. PAST MEDICAL HISTORY: See list. PAST SURGICAL HISTORY: See list. MEDICATIONS: See list. ALLERGIES: See list. SOCIAL HISTORY: No illicit drug use. REVIEW OF SYSTEMS: CONSTITUTIONAL: Denies fever or chills. HEENT: Denies blurred vision, vision changes, or eye pain. Denies hemoptysis ENDOCRINE: Denies heat or cold intolerance. CARDIOVASCULAR: Denies chest pain or pressure. RESPIRATORY: No shortness of breath. GASTROINTESTINAL: Please refer to HPI NEURO: Denies history of seizures. PSYCH: No depression or suicidal ideation HEMATOLOGIC: Denies bleeding disorders. LYMPHATIC: The patient denies any lumps and bumps around the neck. GENITOURINARY: Denies any blood in urine or increased urinary frequency. MUSCULOSKELETAL: Denies myalgias. Denies joint swelling. Denies decreased range of motion beyond patients baseline. SKIN: Denies pruitis. Denies rash. PHYSICAL EXAM: VITAL SIGNS: Reviewed GENERAL: Well-developed in no acute distress. HEENT: No sclera icterus. Extraocular movements grossly intact. Moist buccal mucosa. Head is atraumatic, normocephalic. Hears conversational speech. No nasal drainage. NECK: Supple without lymphadenopathy. CHEST: Non-labored respirations and equal bilateral excursions. CARDIOVASCULAR: Palpable 2+ radial pulses. ABDOMEN: Soft. Nondistended. Tenderness to palpation of the right side of the abdomen. MUSCULOSKELETAL: No clubbing or cyanosis. NEUROLOGIC: No focal or lateralizing signs. Cranial nerves II through XII grossly intact. PSYCH: Appropriate affect. Alert and oriented to person, place and time. SKIN: Well perfused. Good skin turgor. LABORATORY DATA: WBC is 12.3 HGB 13.5 platelets 294 Sodium 138 potassium 3.4 BUN 18 creatinine 0.74 Lactic acid 3.3 down to 1.4 AST 45 ALT 23 alk phos 105 Lipase 234 Urinalysis negative for infection COVID-19 not detected IMAGING: Computed tomography scan abdomen and pelvis demonstrates hepatomegaly. Fatty infiltration of the liver. No acute abnormality in the abdomen and pelvis. There is clearing of distal small bowel loops compared to old exam. No sign of thickened appendix. ASSESSMENT: 1. Abdominal pain 2. Severe constipation 3. Hepatomegaly 4. Fatty liver 5. Chronic constipation since childhood 6. Multiple abdominal surgeries 7. Leukocytosis 8. Lactic acidosis 9. Hypokalemia 10. Diabetes mellitus 11. Hypertension 12. History of schizoaffective disorder, anxiety, depression, panic disorder PLAN: -Add Reglan 10 mg IV every 6 scheduled to help with motility and to stimulate bowel movements -Monitor patient closely while on Reglan due to being on psychiatric medications -Start regular diet -Add Glucerna shakes -Encourage patient to ambulate -Replace potassium -Resume lactulose and MiraLAX -No surgical intervention planned. Continue conservative management Thank you for this consultation Physician Air Quality Engineer note has been reviewed by physician. Signing provider agrees with the documented findings, assessment, and plan of care. Past Medical History Past Medical History: Diabetes Mellitus, GERD/Reflux, Hyperlipidemia, Thyroid Disorder Additional Past Medical History / Comment(s): hx ventral hernia, frequent uti's,twisted small bowel, HYPOKALEMIA History of Any Multi-Drug Resistant Organisms: None Reported Past Surgical History: Bowel Resection, Section, Cholecystectomy, Hernia Repair, Hysterectomy, Joint Replacement, Orthopedic Surgery Additional Past Surgical History / Comment(s): bilat knees replaced,. thymus gland removal,. ventral hernia repair w/ mesh. COLONOSCOPY/EGD Past Anesthesia/Blood Transfusion Reactions: No Reported Reaction Additional Past Anesthesia/Blood Transfusion Reaction / Comm: no problems with prior blood transfusion in 1994 Past Psychological History: Anxiety, Depression, Panic Disorder, PTSD, Schizoaffective Disorder, Schizophrenia Smoking Status: Never smoker Past Alcohol Use History: None Reported Past Drug Use History: None Reported - Past Family History Mother Family Medical History: Cancer Additional Family Medical History / Comment(s): lung Father Family Medical History: Diabetes Mellitus, Myocardial Infarction ([place]) Medications and Allergies Home Medications Medication Instructions Recorded Confirmed Type Omeprazole [PriLOSEC] 20 mg PO DAILY 01/12/19 04/30/21 History Aspirin [Adult Low Dose Aspirin EC] 81 mg PO DAILY 11/10/19 04/30/21 History Atorvastatin [Lipitor] 80 mg PO DAILY 11/10/19 04/30/21 History Levothyroxine Sodium [Synthroid] 150 mcg PO DAILY 11/10/19 04/30/21 History Insulin Glargine,Hum.rec.anlog 80 unit SQ BID 05/14/20 04/30/21 History [Lantus Solostar Pen] Empagliflozin [Jardiance] 25 mg PO DAILY 12/11/20 04/30/21 History Topiramate [Topamax] 100 mg PO BID 12/11/20 04/30/21 History Venlafaxine HCl [Effexor XR] 75 mg PO HS 12/11/20 04/30/21 History Vitamin D3 50,000 Units 1,250 mcg PO Q30D 12/11/20 04/30/21 History metFORMIN HCL [Glucophage] 1,000 mg PO BID 12/11/20 04/30/21 History oxyCODONE-APAP 7.5-325MG [Percocet 1 tab PO TID 01/03/21 04/30/21 History 7.5-325 mg] Ondansetron HCl [Zofran] 4 mg PO TID PRN 01/18/21 04/30/21 History Triamterene/Hydrochlorothiazid 1 tab PO DAILY 02/09/21 04/30/21 History [Triamterene-Hctz 37.5-25 mg Tb] Dulaglutide [Trulicity] 0.75 mg SQ WE 04/16/21 04/30/21 History Ibuprofen [Motrin] 800 mg PO TID PRN 04/16/21 04/30/21 History Insulin Aspart [NovoLOG Flexpen] 16 units SQ AC-TID 04/16/21 04/30/21 History LORazepam [Ativan] 1 mg PO TID 04/16/21 04/30/21 History Potassium Chloride ER [K-Dur 20] 20 meq PO 5XD 04/16/21 04/30/21 History QUEtiapine FUMARATE [SEROquel] 25 mg PO HS 04/16/21 04/30/21 History Lactulose [Cephulac] 30 gm PO BID #480 ml 04/21/21 04/30/21 Rx Amoxicillin 250 mg PO Q8H 04/30/21 04/30/21 History Docusate [Colace] 100 mg PO BID 04/30/21 04/30/21 History polyethylene glycoL 3350 [Miralax] 17 gm PO DAILY 04/30/21 04/30/21 History Allergies Allergy/AdvReac Type Severity Reaction Status Date / Time bupropion [From Wellbutrin] Allergy Rash/Hives Verified 04/30/21 22:46 cephalexin [From Keflex] Allergy Rash/Hives Verified 04/30/21 22:46 propoxyphene Allergy Rash/Hives Verified 04/30/21 22:46 [From Darvocet-N] Surgical - Exam Vital Signs Temp Pulse Resp BP Pulse Ox 98.2 F 92 16 118/65 96 04/30/21 21:17 04/30/21 21:17 04/30/21 21:17 04/30/21 21:17 04/30/21 21:17 Results - Labs 04/30/21 21:43 04/30/21 21:43 Abnormal Lab Results - Last 24 Hours (Table) 04/30/21 04/30/21 04/30/21 Range/Units 21:43 21:43 21:43 WBC 12.3 H (3.8-10.6) k/uL Potassium 3.4 L (3.5-5.1) mmol/L BUN 18 H (7-17) mg/dL Glucose 112 H (74-99) mg/dL POC Glucose (mg/dL) (75-99) mg/dL Plasma Lactic Acid Shaayn 3.3 H* (0.7-2.0) mmol/L AST 45 H (14-36) U/L Urine Glucose (UA) (Negative) 04/30/21 05/01/21 05/01/21 Range/Units 22:07 01:00 12:53 WBC (3.8-10.6) k/uL Potassium (3.5-5.1) mmol/L BUN (7-17) mg/dL Glucose (74-99) mg/dL POC Glucose (mg/dL) 105 H (75-99) mg/dL Plasma Lactic Acid Shayan 2.9 H* (0.7-2.0) mmol/L AST (14-36) U/L Urine Glucose (UA) 4+ H (Negative) Diabetes panel 04/30/21 Range/Units 21:43 Sodium 138 (137-145) mmol/L Potassium 3.4 L (3.5-5.1) mmol/L Chloride 103 (98-107) mmol/L Carbon Dioxide 23 (22-30) mmol/L BUN 18 H (7-17) mg/dL Creatinine 0.74 (0.52-1.04) mg/dL Glucose 112 H (74-99) mg/dL Calcium 9.6 (8.4-10.2) mg/dL AST 45 H (14-36) U/L ALT 23 (4-34) U/L Alkaline Phosphatase 105 (38-126) U/L Total Protein 6.8 (6.3-8.2) g/dL Albumin 4.0 (3.5-5.0) g/dL Calcium panel 04/30/21 Range/Units 21:43 Calcium 9.6 (8.4-10.2) mg/dL Albumin 4.0 (3.5-5.0) g/dL Pituitary panel 04/30/21 Range/Units 21:43 Sodium 138 (137-145) mmol/L Potassium 3.4 L (3.5-5.1) mmol/L Chloride 103 (98-107) mmol/L Carbon Dioxide 23 (22-30) mmol/L BUN 18 H (7-17) mg/dL Creatinine 0.74 (0.52-1.04) mg/dL Glucose 112 H (74-99) mg/dL Calcium 9.6 (8.4-10.2) mg/dL Adrenal panel 04/30/21 Range/Units 21:43 Sodium 138 (137-145) mmol/L Potassium 3.4 L (3.5-5.1) mmol/L Chloride 103 (98-107) mmol/L Carbon Dioxide 23 (22-30) mmol/L BUN 18 H (7-17) mg/dL Creatinine 0.74 (0.52-1.04) mg/dL Glucose 112 H (74-99) mg/dL Calcium 9.6 (8.4-10.2) mg/dL Total Bilirubin 0.3 (0.2-1.3) mg/dL AST 45 H (14-36) U/L ALT 23 (4-34) U/L Alkaline Phosphatase 105 (38-126) U/L Total Protein 6.8 (6.3-8.2) g/dL Albumin 4.0 (3.5-5.0) g/dL
[2021-05-01] MEDS: LORazepam 1 MG TAB PO SCH (19:07)
[2021-05-01] MEDS: LACTULOSE 20 GM/30 ML CUP PO SCH (19:53)
[2021-05-02] MEDS: METOCLOPRAMIDE 5 MG/ML 2 ML VIAL IVP SCH ×5 (00:07→21:55)
[2021-05-02] MEDS: LORazepam 1 MG TAB PO SCH ×4 (00:47→21:09)
[2021-05-02] MEDS: MORPHINE SULFATE 4 MG/ML SYRINGE IV PRN ×3 (06:43→21:55)
[2021-05-02] MEDS: SODIUM CHLORIDE 0.9% 1,000 ML IV SCH ×3 (06:44→22:56)
[2021-05-02 07:22] LABS: Basophils % (A) 1 %; Eosinophils # (A) 0.3 k/uL (0-0.7); Eosinophils % (A) 4 %; HCT 40.4 % (34.0-46.0); HGB 13.9 gm/dL (11.4-16.0); Lymphocytes # (A) 2.9 k/uL (1.0-4.8); Lymphocytes % (A) 40 %; MCH 28.5 pg (25.0-35.0); MCHC 34.4 g/dL (31.0-37.0); MCV 82.9 fL (80.0-100.0); Monocytes # (A) 0.3 k/uL (0-1.0); Monocytes % (A) 4 %; Neutrophils # (A) 3.6 k/uL (1.3-7.7); Neutrophils % (A) 50 %; Platelet Count 241 k/uL (150-450); RBC 4.87 m/uL (3.80-5.40); RDW 15.7 % (11.5-15.5); WBC 7.1 k/uL (3.8-10.6)
[2021-05-02 07:50] LABS: ALT 17 U/L (4-34); AST 31 U/L (14-36); African American GFR (CKD) >90 (>60 ml/min/1.73 sqM); Albumin 3.4 g/dL (3.5-5.0); Alkaline Phosphatase 89 U/L (38-126); Anion Gap 8 mmol/L; Blood Urea Nitrogen 11 mg/dL (7-17); Calcium 8.7 mg/dL (8.4-10.2); Carbon Dioxide 20 mmol/L (22-30); Chloride 113 mmol/L (98-107); Glucose 120 mg/dL (74-99); Non-African American GFR(CKD) >90 (>60 ml/min/1.73 sqM); Potassium 3.6 mmol/L (3.5-5.1); Sodium 141 mmol/L (137-145); Total Bilirubin 0.3 mg/dL (0.2-1.3); Total Protein 6.1 g/dL (6.3-8.2)
[2021-05-02] MEDS: polyethylene glycoL 3350 17 GM POWD.PACK PO SCH (09:33)
[2021-05-02] MEDS: LACTULOSE 20 GM/30 ML CUP PO SCH ×2 (09:35→21:13)
[2021-05-02] MEDS: FAMOTIDINE 20 MG TAB PO SCH ×2 (09:38→21:09)
--- NOTE | 2021-05-02 14:52 | P.PN ---
Subjective Progress Note Date: 05/02/21 CHIEF COMPLAINT: Abdominal pain HISTORY OF PRESENT ILLNESS: Surgical service following regards to patient's abdominal pain and chronic constipation. Patient is still complaining of right- sided abdominal pain and spasming. She did have a very small bowel movement and flatus. She has been on the Reglan. She is able to eat a small amount of food. Afebrile. WBC has normalized at 7.1. PHYSICAL EXAM: VITAL SIGNS: Reviewed GENERAL: Well-developed in no acute distress. HEENT: No sclera icterus. Extraocular movements grossly intact. Moist buccal mucosa. Head is atraumatic, normocephalic. Hears conversational speech. No nasal drainage. NECK: Supple without lymphadenopathy. CHEST: Non-labored respirations and equal bilateral excursions. CARDIOVASCULAR: Palpable 2+ radial pulses. ABDOMEN: Soft. Nondistended. Right-sided tenderness with palpation MUSCULOSKELETAL: No clubbing or cyanosis. NEUROLOGIC: No focal or lateralizing signs. Cranial nerves II through XII grossly intact. PSYCH: Appropriate affect. Alert and oriented to person, place and time. SKIN: Well perfused. Good skin turgor. ASSESSMENT: 1. Abdominal pain 2. Severe constipation 3. Hepatomegaly 4. Fatty liver 5. Chronic constipation since childhood 6. Multiple abdominal surgeries 7. Leukocytosis 8. Lactic acidosis 9. Hypokalemia 10. Diabetes mellitus 11. Hypertension 12. History of schizoaffective disorder, anxiety, depression, panic disorder PLAN: -Add Bentyl 10 mg 4 times a day for colon spasms -Consult GI service regarding abdominal spasming -Continue Reglan to help with motility and stimulate bowel movements -Continue lactulose and MiraLAX -Continue regular diet -No surgical intervention planned. Continue conservative management. Physician Dispatch Coordinator note has been reviewed by physician. Signing provider agrees with the documented findings, assessment, and plan of care. Objective - Vital Signs Vital signs: Vital Signs Temp 97.6 F 05/02/21 14:29 Pulse 105 H 05/02/21 14:29 Resp 18 05/02/21 14:29 BP 136/76 05/02/21 14:29 Pulse Ox 95 05/02/21 14:29 Intake & Output 05/01/21 05/02/21 05/02/21 18:59 06:59 18:59 Intake Total 240 222 Balance 240 222 Weight 109.769 kg Intake: Oral 240 222 Other: Voiding Method Toilet # Voids 1 3 1 # Bowel Movements 1 - Labs CBC & Chem 7: 05/02/21 06:33 05/02/21 06:33 Labs: Abnormal Lab Results - Last 24 Hours (Table) 05/02/21 05/02/21 Range/Units 06:33 06:33 RDW 15.7 H (11.5-15.5) % Chloride 113 H (98-107) mmol/L Carbon Dioxide 20 L (22-30) mmol/L Glucose 120 H (74-99) mg/dL Total Protein 6.1 L (6.3-8.2) g/dL Albumin 3.4 L (3.5-5.0) g/dL
[2021-05-02] MEDS: DICYCLOMINE 10 MG CAP PO SCH ×3 (15:02→21:10)
--- NOTE | 2021-05-02 16:04 | P.CONS ---
History of Present Illness - Reason for Consult Consult date: 05/02/21 Abdominal spasms Requesting physician: Yarelis Hernandes - Chief Complaint Abdominal pain - History of Present Illness This is a 50 rolled white female a past medical history of diabetes mellitus, morbid obesity, GERD, hyperlipidemia, thyroid disorder, frequent urinary tract infections bowel resection and hernia repair. Patient presented to the emergency department 2 days ago with complaints of abdominal pain. His part of her workup she had a abdominal x-ray that showed nonacute abdomen. No adverse change. CT of the abdomen and pelvis showed hepatomegaly. Fatty infiltration of the liver. No acute abnormality in the abdomen or pelvis. There is clearing of distal tendon small bowel loops compared to old exam. Patient was recently hospitalized last month with issues with constipation and a large bowel obstruction secondary to adhesions. The patient states she has chronic abdominal pain this is been going on since she's been a child. She feels like the pain is all over. She states she is having regular bowel movements now. Having some nausea but no vomiting. Her last EGD and colonoscopy was done by Dr. Hernandes in July of this year. EGD showed gastritis with gastric polyps. Colonoscopy showed internal hemorrhoids grade 1 with a poor prep limiting complete assessment of the mucosa with no reported focal colitis. She is on a bowel regimen of lactulose and MiraLAX. Labs show WBC 7.1 hemoglobin 13.9 hematocrit 40 platelet count 241,000 total bilirubin 0.3 AST 31 ALT 17 alkaline phosphatase 89. Review of Systems REVIEW OF SYSTEMS: CARDIOPULMONARY: No chest pain or shortness of breath. Gastrointestinal: Abdominal pain. Nausea, no vomiting. Chronic constipation in the past. Has been having more regular bowel movement since last admission. No hematemesis, coffee-ground emesis. No rectal bleeding, or melena. GENITOURINARY: No dysuria or hematuria. MUSCULOSKELETAL: Reports normal range of motion., Joint pain. SKIN: No rashes. No jaundice. ENDOCRINE: No chills, fevers. No excessive weight gain or loss. No polydipsia or polyuria. PSYCHIATRIC: Unremarkable. NEUROLOGY: No change in mental status. Denies dizziness, headache. ENT: Vision unremarkable. CONSTITUTIONAL: No recent weight loss. No fever, chills, night sweats. Past Medical History Past Medical History: Diabetes Mellitus, GERD/Reflux, Hyperlipidemia, Thyroid Disorder Additional Past Medical History / Comment(s): hx ventral hernia, frequent uti's,twisted small bowel, HYPOKALEMIA History of Any Multi-Drug Resistant Organisms: None Reported Past Surgical History: Bowel Resection, Section, Cholecystectomy, Hernia Repair, Hysterectomy, Joint Replacement, Orthopedic Surgery Additional Past Surgical History / Comment(s): bilat knees replaced,. thymus gland removal,. ventral hernia repair w/ mesh. COLONOSCOPY/EGD Past Anesthesia/Blood Transfusion Reactions: No Reported Reaction Additional Past Anesthesia/Blood Transfusion Reaction / Comm: no problems with prior blood transfusion in 1994 Past Psychological History: Anxiety, Depression, Panic Disorder, PTSD, Schizoaffective Disorder, Schizophrenia Smoking Status: Never smoker Past Alcohol Use History: None Reported Past Drug Use History: None Reported - Past Family History Mother Family Medical History: Cancer Additional Family Medical History / Comment(s): lung Father Family Medical History: Diabetes Mellitus, Myocardial Infarction ([place]) Medications and Allergies Home Medications Medication Instructions Recorded Confirmed Type Omeprazole [PriLOSEC] 20 mg PO DAILY 01/12/19 04/30/21 History Aspirin [Adult Low Dose Aspirin EC] 81 mg PO DAILY 11/10/19 04/30/21 History Atorvastatin [Lipitor] 80 mg PO DAILY 11/10/19 04/30/21 History Levothyroxine Sodium [Synthroid] 150 mcg PO DAILY 11/10/19 04/30/21 History Insulin Glargine,Hum.rec.anlog 80 unit SQ BID 05/14/20 04/30/21 History [Lantus Solostar Pen] Empagliflozin [Jardiance] 25 mg PO DAILY 12/11/20 04/30/21 History Topiramate [Topamax] 100 mg PO BID 12/11/20 04/30/21 History Venlafaxine HCl [Effexor XR] 75 mg PO HS 12/11/20 04/30/21 History Vitamin D3 50,000 Units 1,250 mcg PO Q30D 12/11/20 04/30/21 History metFORMIN HCL [Glucophage] 1,000 mg PO BID 12/11/20 04/30/21 History oxyCODONE-APAP 7.5-325MG [Percocet 1 tab PO TID 01/03/21 04/30/21 History 7.5-325 mg] Ondansetron HCl [Zofran] 4 mg PO TID PRN 01/18/21 04/30/21 History Triamterene/Hydrochlorothiazid 1 tab PO DAILY 02/09/21 04/30/21 History [Triamterene-Hctz 37.5-25 mg Tb] Dulaglutide [Trulicity] 0.75 mg SQ WE 04/16/21 04/30/21 History Ibuprofen [Motrin] 800 mg PO TID PRN 04/16/21 04/30/21 History Insulin Aspart [NovoLOG Flexpen] 16 units SQ AC-TID 04/16/21 04/30/21 History LORazepam [Ativan] 1 mg PO TID 04/16/21 04/30/21 History Potassium Chloride ER [K-Dur 20] 20 meq PO 5XD 04/16/21 04/30/21 History QUEtiapine FUMARATE [SEROquel] 25 mg PO HS 04/16/21 04/30/21 History Lactulose [Cephulac] 30 gm PO BID #480 ml 04/21/21 04/30/21 Rx Amoxicillin 250 mg PO Q8H 04/30/21 04/30/21 History Docusate [Colace] 100 mg PO BID 04/30/21 04/30/21 History polyethylene glycoL 3350 [Miralax] 17 gm PO DAILY 04/30/21 04/30/21 History Allergies Allergy/AdvReac Type Severity Reaction Status Date / Time bupropion [From Wellbutrin] Allergy Rash/Hives Verified 04/30/21 22:46 cephalexin [From Keflex] Allergy Rash/Hives Verified 04/30/21 22:46 propoxyphene Allergy Rash/Hives Verified 04/30/21 22:46 [From Darvocet-N] Physical Exam Vitals: Vital Signs Temp Pulse Resp BP BP Pulse Ox 05/02/21 14:29 97.6 F 105 H 18 136/76 95 05/02/21 08:27 97.6 F 77 18 118/77 96 05/02/21 00:44 97.5 F L 91 16 103/69 98 05/01/21 19:50 98.5 F 85 18 107/66 97 05/01/21 19:44 16 Intake and Output 05/02/21 05/02/21 05/02/21 06:59 14:59 22:59 Intake Total 222 Balance 222 Intake: Oral 222 Other: # Voids 3 1 1 # Bowel Movements 1 General appearance: The patient is alert, oriented, appears in no acute distress. Morbidly obese. HET: Head is normocephalic and atraumatic. Conjunctiva pink. Sclera anicteric. Neck: Supple without lymphadenopathy. Trachea midline. Heart: S1 S2. Regular rate and rhythm. Lungs: Clear to auscultation. Abdomen: Soft, morbidly obese, diffuse tenderness, nondistended with bowel sounds. No guarding or rigidity. Skin: No rashes. No jaundice. Extremities: Normal skin color and turgor. No pedal edema. Neurological: No focal deficits. Alert and oriented x3. Results CBC & Chem 7: 05/02/21 06:33 05/02/21 06:33 Labs: Abnormal Lab Results - Last 24 Hours (Table) 05/02/21 05/02/21 Range/Units 06:33 06:33 RDW 15.7 H (11.5-15.5) % Chloride 113 H (98-107) mmol/L Carbon Dioxide 20 L (22-30) mmol/L Glucose 120 H (74-99) mg/dL Total Protein 6.1 L (6.3-8.2) g/dL Albumin 3.4 L (3.5-5.0) g/dL CT scan - abdomen: report reviewed Assessment and Plan (1) Abdominal pain Narrative/Plan: 50-year-old female presenting to the emergency department with complaints of abdominal pain. Patient and sister stating that she's had pain off and on her entire legs and she was a child. She had was recently admitted to the hospital with severe constipation and bowel obstruction. She went home on a bowel regimen of MiraLAX and lactulose daily. States that been having worn normal bowel movements and 7. She states she's having some nausea but no vomiting. States that the pain is all over her abdomen and feels like spasms at times. She had a recent EGD and colonoscopy and this year with no significant findings other than gastritis and gastric polyps on EGD and grade 1 internal hemorrhoids on colonoscopy. Patient does have a history of a bowel resection in 2019 with the lysis of adhesions. CT of the abdomen with no acute findings other than fatty infiltration of the liver. Labs are unremarkable with normal LFTs. Bentyl spelled added 10 mg 4 times a day as needed. Agree to continue and discharged on Bentyl. Discussed with patient she may follow up outpatient with gastroenterology. Current Visit: Yes Status: Acute Code(s): R10.9 - UNSPECIFIED ABDOMINAL PAIN SNOMED Code(s): 01328065 (2) Morbid (severe) obesity due to excess calories Current Visit: No Status: Acute Code(s): E66.01 - MORBID (SEVERE) OBESITY DUE TO EXCESS CALORIES SNOMED Code(s): 504083261 Plan: 1. Diet as tolerated 2. Agree with Bentyl 10 mg 4 times a day 3. Continue bowel regimen 4. No planned then endoscopic evaluation 5. Will order celiac panel Thank you for allowing us to participate in the care of the patient, the GI service will sign off, gastroenterology will not be available at the hospital this weekend and through next week. If further evaluation by gastroenterology is required the patient will need transfer as per the primary team's discretion. Dr. Favian Mccoy I agree with the dictator's note, documented as a scribe by Emiliana Tang.
--- NOTE | 2021-05-02 18:45 | PN ---
PROGRESS NOTE CHIEF COMPLAINT: Abdominal pain. HISTORY OF PRESENT ILLNESS: This lady is still having abdominal pain but no vomiting. There is no sign of obstruction. She is being seen by Surgery. PHYSICAL EXAMINATION: Her abdomen remains protuberant and somewhat tender. There are no masses. Bowel sounds are present. IMPRESSION: 1. Abdominal pain. 2. Obstipation. 3. Obesity. 4. Diabetes. PLAN: Await any further recommendations from General Surgery. MMODL / IJN: [id number] /
--- NOTE | 2021-05-02 19:00 | HP ---
HISTORY AND PHYSICAL CHIEF COMPLAINT: Abdominal pain. HISTORY OF PRESENT ILLNESS: This is another admission for this 50 year obese white female, with diabetes who has been having nondescript somewhat generalized lower abdominal pain for weeks. She has been very constipated. She is on diuretics for edema and without them she develops fairly significant problems with lower extremities. She has also had a problem maintaining her potassium while she is on the diuretics. She was just in the hospital for obstipation and a secondary bowel obstruction. She started to pass stool, went home. She was seen in the office and was still having generalized mild abdominal pain. She then went back to the emergency room and was readmitted. REVIEW OF SYSTEMS: She has had no fever, chills, nausea, vomiting, melena, hematochezia, jaundice, renal failure, etc. She is diabetic. Past medical history, family history, personal and social histories demonstrate that she cannot take Aldactazide, Cymbalta, Wellbutrin or cephalosporins. She is on KCl 20 mEq 5 a day, Amoxil 250 t.i.d., Linzess 145 mg once a day, aspirin, Jardiance, Dyazide, Topamax, venlafaxine, metformin, Lantus, NovoLog, and MiraLAX. The remainder of her history is unchanged from her very recent admitting and discharge summaries. PHYSICAL EXAMINATION: Blood pressure 126/86, pulse 85, respirations 16. She is afebrile. In general, she appeared to be overweight and somewhat uncomfortable. Skin color is normal skin is warm, dry. Lymph nodes were not enlarged. Head, ears, eyes, nose, mouth and throat were normal. Neck veins are not distended. Thyroid is not enlarged. Chest is clear. Cardiac exam is normal. The abdomen is protuberant, soft and there are no definite masses or visceromegaly. She has diffuse tenderness mostly from the mid abdomen down into both lower quadrants. Bowel sounds are present. Extremities: Normal. Neurologically: She is intact IMPRESSION: She is admitted to the hospital with diagnoses: 1. Recurrent and chronic abdominal pain. 2. Obstipation. 3. Obesity. 4. Dependent edema. 5. Insulin-dependent diabetes mellitus. 6. Hypokalemia. PLAN: 1. Bed rest. 2. IV fluids. 3. N.p.o. 4. Re-consult General surgery. MMODL / IJN: [id number] /
[2021-05-03] MEDS: METOCLOPRAMIDE 5 MG/ML 2 ML VIAL IVP SCH (05:57)
[2021-05-03] MEDS: MORPHINE SULFATE 4 MG/ML SYRINGE IV PRN (05:57)
[2021-05-03] MEDS: SODIUM CHLORIDE 0.9% 1,000 ML IV SCH ×2 (06:17→08:32)
[2021-05-03] MEDS: FAMOTIDINE 20 MG TAB PO SCH (08:33)
[2021-05-03] MEDS: DICYCLOMINE 10 MG CAP PO SCH (08:33)
[2021-05-03] MEDS: LORazepam 1 MG TAB PO SCH (08:33)
[2021-05-03] MEDS: LACTULOSE 20 GM/30 ML CUP PO SCH (08:34)
[2021-05-03] MEDS: polyethylene glycoL 3350 17 GM POWD.PACK PO SCH (08:35)
[2021-05-03 08:43] VITALS: BP 130/79; PULSE 59; RESP 18; TEMP 98.2
--- NOTE | 2021-05-03 11:38 | P.PN ---
Progress Note - Text Progress Note Date: 05/03/21 Patient is tolerating a clear liquid diet. She states she had a bowel movement. On exam her vital signs are stable. Abdomen soft. Abdominal pain due to constipation. Patient's bowels appeared to function. She'll be discharged home and started on full liquid diet.
--- NOTE | 2021-05-03 15:24 | DS ---
DISCHARGE SUMMARY CHIEF COMPLAINT: Abdominal pain. HISTORY OF PRESENT ILLNESS AND PHYSICAL EXAMINATION: Details of this lady's history and physical can be found in the initial workup. LABORATORY STUDIES: While she was in the hospital she had laboratory studies, details of which can be found in the laboratory section of her chart. COURSE IN THE HOSPITAL: After admission she was placed on bedrest, started on intravenous fluids and kept n.p.o. She was seen again by General Surgery. In the hospital, she had no change in her vital signs, nausea, vomiting, etc. She had a normal bowel movement and diet was advanced, and it was felt that she could go back home. She will go home on her usual activity, diet and medications, and we will add further medication to her program when she is seen in the office in several days. FINAL DIAGNOSES: 1. Chronic lower abdominal pain. 2. Chronic constipation. 3. Insulin-dependent diabetes mellitus. 4. Obesity. 5. History of hypokalemia with muscle cramps. OPERATIONS: None. CONSULTATION: General Surgery. She is improved. TONO / FELIZ: [id number] /
[2021-05-05 13:54] LABS: Gliadin AB IgA, Deaminated NEGATIVE (NEGATIVE); Gliadin AB IgA, Unit 1.3 U/mL; Gliadin AB IgG, Deaminated NEGATIVE (NEGATIVE)
== END 2021-05-03 12:01 | disposition home or self-care (01) ==
LOC: EC 21:07 → 6PED 05-01 07:09
PROVIDERS: ADMIT Family Medicine; ATTEND Family Medicine
DX: G89.29 Other chronic pain (principal); R10.31 Right lower quadrant pain; K59.09 Other constipation; E11.9 Type 2 diabetes mellitus without complications; K21.9 Gastro-esophageal reflux disease without esophagitis; E78.5 Hyperlipidemia, unspecified; F25.9 Schizoaffective disorder, unspecified; F41.0 Panic disorder [episodic paroxysmal anxiety]; F43.10 Post-traumatic stress disorder, unspecified; F32.A Depression, unspecified; F41.9 Anxiety disorder, unspecified; E87.2 Acidosis; R11.0 Nausea; R16.0 Hepatomegaly, not elsewhere classified; K76.0 Fatty (change of) liver, not elsewhere classified; D72.829 Elevated white blood cell count, unspecified; K29.70 Gastritis, unspecified, without bleeding; K31.7 Polyp of stomach and duodenum; K64.0 First degree hemorrhoids; E07.9 Disorder of thyroid, unspecified; R60.9 Edema, unspecified; R25.2 Cramp and spasm; E87.6 Hypokalemia; I10 Essential (primary) hypertension; K58.1 Irritable bowel syndrome with constipation; K43.9 Ventral hernia without obstruction or gangrene; E66.01 Morbid (severe) obesity due to excess calories; Z68.41 Body mass index [BMI] 40.0-44.9, adult; Z20.822 Contact with and (suspected) exposure to COVID-19; Z87.440 Personal history of urinary (tract) infections; Z79.82 Long term (current) use of aspirin; Z79.899 Other long term (current) drug therapy; Z79.890 Hormone replacement therapy; Z79.84 Long term (current) use of oral hypoglycemic drugs; Z79.4 Long term (current) use of insulin; Z79.891 Long term (current) use of opiate analgesic; Z88.8 Allergy status to other drugs, medicaments and biological substances; Z88.1 Allergy status to other antibiotic agents; Z88.5 Allergy status to narcotic agent; Z90.49 Acquired absence of other specified parts of digestive tract; Z90.710 Acquired absence of both cervix and uterus; Z83.3 Family history of diabetes mellitus; Z82.49 Family history of ischemic heart disease and other diseases of the circulatory system; Z80.1 Family history of malignant neoplasm of trachea, bronchus and lung
CPT/HCPCS: 96361 ×4; 96372; 96375; 96376 ×3; 96374; 99285; 36415 ×2; 80053 ×2; 82150; 83605 ×2; 83690; 85025 ×2; 81003; 81025; 83516 ×4; 87635; 74018; 74176; G0378 ×3; J2270 ×3; J0500; J2765 ×3; J2405

== ENCOUNTER 2021-05-15 14:22 | Emergency (ER) | payer OTHER ==
[2021-05-15] MEDS ORDERED: SODIUM CHLORIDE 0.9% 50 ML IVPB ONE (15:45)
[2021-05-15] MEDS ORDERED: ACETAMINOPHEN TAB 500 MG TAB PO STA (15:48)
--- NOTE | 2021-05-15 15:49 | ED ---
General Adult HPI - General Chief complaint: Shortness of Breath Stated complaint: Covid+,SOB Time Seen by Provider: 05/15/21 15:11 Source: patient Mode of arrival: ambulatory Limitations: no limitations - History of Present Illness Initial comments: Dictation was produced using [employer] dictation software. please excuse any grammatical, word or spelling errors. Chief Complaint: 50-year-old female presents emergency department for COVID-19 History of Present Illness: Since 50-year-old female she contracted: From her sister. She lives in a small apartment. States that her sister is currently admitted to the hospital at [facility] or [facility]19. Patient has multiple comorbidities. Chest test positive on Wednesday. She is given symptomatically since Wednesday. She's been symptomatic for approximately 6 days. Patient states she's had chills body aches, cough and fevers and mild headache. The ROS documented in this emergency department record has been reviewed and confirmed by me. Those systems with pertinent positive or negative responses have been documented in the HPI. All other systems are other negative and/or noncontributory. PHYSICAL EXAM: General Impression: Alert and oriented x3, not in acute distress HEENT: Normocephalic atraumatic, extra-ocular movements intact, pupils equal and reactive to light bilaterally, mucous membranes moist. Cardiovascular: Heart regular rate and rhythm Chest: Able to complete full sentences, no retractions, no tachypnea Abdomen: abdomen soft, non-tender, non-distended, no organomegaly Musculoskeletal: Pulses present and equal in all extremities, no peripheral edema Motor: no focal deficits noted Neurological: CN II-XII grossly intact, no focal motor or sensory deficits noted Skin: Intact with no visualized rashes Psych: Normal affect and mood ED course: 50-year-old well-appearing female presents emergency department for COVID-19. She is been symptomatic for 6 days. Chest positive for days ago. Vital signs upon arrival shows temperature 100.5. Heart rate of 103, 98% on room air. Patient is not hypoxic. Chest x-ray shows developing the left suprahilar acute infiltrate. Patient given monoclonal antibody infusion. Patient observed for one hour after infusion. She is reevaluated bedside 5:50 PM found to be stable medical condition. Patient be discharged. Return precautions discussed. - Related Data Home Medications Medication Instructions Recorded Confirmed Omeprazole [PriLOSEC] 20 mg PO DAILY 01/12/19 04/30/21 Atorvastatin [Lipitor] 80 mg PO DAILY 11/10/19 04/30/21 Levothyroxine Sodium [Synthroid] 150 mcg PO DAILY 11/10/19 04/30/21 Insulin Glargine,Hum.rec.anlog 80 unit SQ BID 05/14/20 04/30/21 [Lantus Solostar Pen] Empagliflozin [Jardiance] 25 mg PO DAILY 12/11/20 04/30/21 Topiramate [Topamax] 100 mg PO BID 12/11/20 04/30/21 Venlafaxine HCl [Effexor XR] 75 mg PO HS 12/11/20 04/30/21 Vitamin D3 50,000 Units 1,250 mcg PO Q30D 12/11/20 04/30/21 metFORMIN HCL [Glucophage] 1,000 mg PO BID 12/11/20 04/30/21 oxyCODONE-APAP 7.5-325MG [Percocet 1 tab PO TID 01/03/21 04/30/21 7.5-325 mg] Ondansetron HCl [Zofran] 4 mg PO TID PRN 01/18/21 04/30/21 Triamterene/Hydrochlorothiazid 1 tab PO DAILY 02/09/21 04/30/21 [Triamterene-Hctz 37.5-25 mg Tb] Dulaglutide [Trulicity] 0.75 mg SQ WE 04/16/21 04/30/21 Insulin Aspart [NovoLOG Flexpen] 16 units SQ AC-TID 04/16/21 04/30/21 LORazepam [Ativan] 1 mg PO TID 04/16/21 04/30/21 Potassium Chloride ER [K-Dur 20] 20 meq PO 5XD 04/16/21 04/30/21 QUEtiapine FUMARATE [SEROquel] 25 mg PO HS 04/16/21 04/30/21 Docusate [Colace] 100 mg PO BID 04/30/21 04/30/21 polyethylene glycoL 3350 [Miralax] 17 gm PO DAILY 04/30/21 04/30/21 Previous Rx's Medication Instructions Recorded Lactulose [Cephulac] 30 gm PO BID #480 ml 04/21/21 Allergies Allergy/AdvReac Type Severity Reaction Status Date / Time bupropion [From Wellbutrin] Allergy Rash/Hives Verified 05/15/21 15:06 cephalexin [From Keflex] Allergy Rash/Hives Verified 05/15/21 15:06 propoxyphene Allergy Rash/Hives Verified 05/15/21 15:06 [From Darvocet-N] Review of Systems ROS Statement: Those systems with pertinent positive or pertinent negative responses have been documented in the HPI. ROS Other: All systems not noted in ROS Statement are negative. Past Medical History Past Medical History: Diabetes Mellitus, GERD/Reflux, Hyperlipidemia, Thyroid Disorder Additional Past Medical History / Comment(s): hx ventral hernia, frequent uti's,twisted small bowel, HYPOKALEMIA History of Any Multi-Drug Resistant Organisms: None Reported Past Surgical History: Bowel Resection, Section, Cholecystectomy, Hernia Repair, Hysterectomy, Joint Replacement, Orthopedic Surgery Additional Past Surgical History / Comment(s): bilat knees replaced,. thymus gland removal,. ventral hernia repair w/ mesh. COLONOSCOPY/EGD Past Anesthesia/Blood Transfusion Reactions: No Reported Reaction Additional Past Anesthesia/Blood Transfusion Reaction / Comment(s): no problems with prior blood transfusion in 1994 Past Psychological History: Anxiety, Depression, Panic Disorder, PTSD, Schizoaffective Disorder, Schizophrenia Smoking Status: Never smoker Past Alcohol Use History: None Reported Past Drug Use History: None Reported - Past Family History Mother Family Medical History: Cancer Additional Family Medical History / Comment(s): lung Father Family Medical History: Diabetes Mellitus, Myocardial Infarction ([place]) General Exam Limitations: no limitations Course Vital Signs 05/15/21 05/15/21 14:55 15:25 Temperature 100.5 F H Pulse Rate 103 H Respiratory 21 18 Rate Blood Pressure 145/93 O2 Sat by Pulse 98 Oximetry Disposition Clinical Impression: COVID-19 Disposition: HOME SELF-CARE Condition: Fair Instructions (If sedation given, give patient instructions): Coronavirus Disease 2019 (COVID-19) Is patient prescribed a controlled substance at d/c from ED?: No Referrals: Ramin Lopes MD [Primary Care Provider] - 1-2 days
[2021-05-15] MEDS ORDERED: BAMLANIVIMAB (EUA) 700 MG, ETESEVIMAB (EUA) 1,400 MG in SODIUM CHLORIDE 0.9% 50 ML IVPB ONE (16:15)
--- NOTE | 2021-05-15 16:28 | XR ---
EXAMINATION TYPE: XR chest 1V portable DATE OF EXAM: 05/15/2021 COMPARISON: Chest x-ray April 20, 2021 HISTORY: COVID. TECHNIQUE: Single AP portable frontal upright view of the chest is obtained. FINDINGS: Patient slightly more rotated to the right on current study. There is possible minimal medi al left suprahilar opacity near aortic knob. Slightly elevated left hemidiaphragm redemonstrated. Th e cardiac silhouette size remains within normal limits. Multilevel spurring in the lower thoracic spi ne redemonstrated. IMPRESSION: Possible developing medial left suprahilar acute infiltrate. Consider progress study.
[2021-05-15 17:58] VITALS: BP 125/87; PULSE 95; RESP 16; TEMP 100.1
== END 2021-05-15 18:03 | disposition home or self-care (01) ==
LOC: EC 14:22
DX: U07.1 COVID-19 (principal); E11.9 Type 2 diabetes mellitus without complications; E78.5 Hyperlipidemia, unspecified; K21.9 Gastro-esophageal reflux disease without esophagitis; F32.A Depression, unspecified; F41.9 Anxiety disorder, unspecified; F25.9 Schizoaffective disorder, unspecified; Z79.4 Long term (current) use of insulin; Z79.84 Long term (current) use of oral hypoglycemic drugs; Z79.890 Hormone replacement therapy; Z79.899 Other long term (current) drug therapy
CPT/HCPCS: 71045; 99284; J3490

== ENCOUNTER → 2021-07-10 | Outpatient (CLI) | payer OTHER ==
[2021-07-10 14:26] LABS: INR 0.9 (<1.2); Partial Thromboplastin Time 23.1 sec (22.0-30.0)
[2021-07-10 19:01] LABS: HCT 44.2 % (37.2-46.3); MCH 28.5 pg (27.0-32.0); MCHC 33.9 g/dL (32.0-37.0); NRBC Per 100 WBC 0 /100 WBCS (0.0-0.0); Platelet Count 298 X 10*3/uL (140-440); RBC 5.26 X 10*6/uL (4.10-5.20); RDW 15.6 % (11.5-14.5)
[2021-07-10 19:05] LABS: HDL Cholesterol 37.4 mg/dL (40.00-60.00)
[2021-07-10 19:13] LABS: % Iron Saturation 18.5 (12.00-45.00); African American GFR (CKD) 117.1 (60.0-200.0); Albumin 4.1 g/dL (3.8-4.9); Albumin/Globulin Ratio 1.24 (1.60-3.17); Anion Gap 18.1 mmol/L (10.00-18.00); Blood Urea Nitrogen 11.9 mg/dL (9.0-27.0); Calcium 9.3 mg/dL (8.7-10.3); Carbon Dioxide 22.9 mmol/L (20.0-27.5); Ferritin 38.3 ng/mL (10.0-291.0); Globulin 3.3 g/dL (1.6-3.3); Magnesium 1.9 mg/dL (1.5-2.4); Phosphorus 4.1 mg/dL (2.4-5.1); Potassium 2.8 mmol/L (3.5-5.5); Total Bilirubin 0.3 mg/dL (0.30-1.20); Total Protein 7.4 g/dL (6.2-8.2)
[2021-07-10 19:19] LABS: Chol/HDL Ratio 5.83 Ratio; LDL Cholesterol,Direct Reflex 58.8 mg/dL (0.00-129.00)
[2021-07-10 19:44] LABS: Folate, Serum 14.6 ng/mL (4.40-31.00)
[2021-07-11 12:45] LABS: Zinc, Serum 58 ug/dL (60-130)
[2021-07-12 13:28] LABS: Anabasine Urine <2.0 ng/mL (<2.0)
[2021-07-15 06:17] LABS: Vitamin A 63 ug/dL (38-106)
== END | disposition home or self-care (01) ==
LOC: LABPAT 12:55
PROVIDERS: ATTEND Surgery Plastic and Reconstructive Surgery
DX: Z01.812 Encounter for preprocedural laboratory examination (principal); E66.01 Morbid (severe) obesity due to excess calories; E89.1 Postprocedural hypoinsulinemia; E44.0 Moderate protein-calorie malnutrition; E55.9 Vitamin D deficiency, unspecified; D50.8 Other iron deficiency anemias; K74.1 Hepatic sclerosis; K50.90 Crohn's disease, unspecified, without complications; N19 Unspecified kidney failure; Z71.51 Drug abuse counseling and surveillance of drug abuser
CPT/HCPCS: 84255; 84134; 84425; 80061; 80053; 82607; 82728; 82525; 82746; 83540; 83550; 83735; 84100; 84443; 84590; 84630; 85027; 85610; 85730; 83721; 82306; 83970; 83036; 80307; 36415; G0480; G0482; 80323

== ENCOUNTER 2021-07-14 13:15 | Emergency (ER) | payer OTHER ==
[2021-07-14 14:32] LABS: Anisocytosis Slight; Basophils # (A) 0.1 k/uL (0-0.2); Basophils % (A) 1 %; Eosinophils # (A) 0.4 k/uL (0-0.7); Eosinophils % (A) 4 %; HCT 39.4 % (34.0-46.0); Lymphocytes # (A) 2.9 k/uL (1.0-4.8); Lymphocytes % (A) 26 %; MCH 29.4 pg (25.0-35.0); MCHC 33.1 g/dL (31.0-37.0); MCV 88.9 fL (80.0-100.0); Mean Platelet Volume 9.6; Monocytes # (A) 0.4 k/uL (0-1.0); Monocytes % (A) 4 %; Neutrophils # (A) 7.3 k/uL (1.3-7.7); Neutrophils % (A) 65 %; Platelet Count 258 k/uL (150-450); RBC 4.43 m/uL (3.80-5.40); WBC 11.3 k/uL (3.8-10.6)
[2021-07-14 15:06] LABS: AST 30 U/L (14-36); African American GFR (CKD) >90 (>60 ml/min/1.73 sqM); Albumin 3.5 g/dL (3.5-5.0); Alkaline Phosphatase 151 U/L (38-126); Amylase 42 U/L (30-110); Anion Gap 14 mmol/L; Blood Urea Nitrogen 12 mg/dL (7-17); Calcium 8.6 mg/dL (8.4-10.2); Carbon Dioxide 21 mmol/L (22-30); Chloride 102 mmol/L (98-107); Glucose 314 mg/dL (74-99); Lipase 304 U/L (23-300); Non-African American GFR(CKD) >90 (>60 ml/min/1.73 sqM); Potassium 3.2 mmol/L (3.5-5.1); Sodium 137 mmol/L (137-145); Total Bilirubin 0.4 mg/dL (0.2-1.3); Total Protein 6.4 g/dL (6.3-8.2)
[2021-07-14 15:12] LABS: ALT 26 U/L (4-34)
[2021-07-14 16:01] LABS: Appearance,Urine Clear (Clear); Bilirubin,Urine Negative (Negative); Blood,Urine Negative (Negative); Color,Urine Light Yellow; Glucose,Urine (UA) 4+ (Negative); Ketones,Urine Negative (Negative); Leukocyte Esterase,Urine Small (Negative); Nitrite,Urine Negative (Negative); PH, Urine 6.5 (5.0-8.0); Protein,Urine Negative (Negative); RBC,Urine 1 /hpf (0-5); Specific Gravity,Urine 1.032 (1.001-1.035); Squamous Epithelial Cell,Urine 1 /hpf (0-4); Urobilinogen,Urine <2.0 mg/dL (<2.0); WBC,Urine 1 /hpf (0-5)
[2021-07-14] MEDS ORDERED: MORPHINE SULFATE 2 MG/ML SYRINGE IVP STA (19:44)
[2021-07-14] MEDS ORDERED: SODIUM CHLORIDE 0.9% 1,000 ML IV STA (19:44)
[2021-07-14] MEDS ORDERED: ONDANSETRON 4 MG/2 ML VIAL IVP STA (19:44)
--- NOTE | 2021-07-14 19:55 | ED ---
General Adult HPI - General Chief complaint: Abdominal Pain Stated complaint: abd pain Time Seen by Provider: 07/14/21 19:13 Source: patient Mode of arrival: wheelchair - History of Present Illness Initial comments: This 51-year-old female with a past medical history of diabetes and bipolar schizophrenia presents to the emergency department with abdominal pain x1 month. Patient states she has had nausea and vomiting over the last 24 hours. Patient states on Wednesday she got her blood drawn for an abdominal surgery that she is supposed to have and her primary care doctor told her she had pancreatitis and to come to the emergency department if anything worsens. Patient states she has had increased abdominal pain over the last day. Patient states her appetite has significantly decreased over the last couple of days and she has been unable to keep some food down. Patient states her pain is worse in her right lower quadrant and epigastric region, radiating to her back. She states she has been able to drink water and keep some of that down without vomiting. Patient states she has been taking Zofran has relieved some of her nausea. Patient denies any chest pain, bowel or bladder incontinence, saddle anesthesia, shortness of breath, change in bowel or bladder, headache, neck pain, fever, change in vision. - Related Data Home Medications Medication Instructions Recorded Confirmed Omeprazole [PriLOSEC] 20 mg PO DAILY 01/12/19 07/14/21 Atorvastatin [Lipitor] 80 mg PO DAILY 11/10/19 07/14/21 Levothyroxine Sodium [Synthroid] 150 mcg PO DAILY 11/10/19 07/14/21 Insulin Glargine,Hum.rec.anlog 80 unit SQ BID 05/14/20 07/14/21 [Lantus Solostar Pen] Empagliflozin [Jardiance] 25 mg PO DAILY 12/11/20 07/14/21 Topiramate [Topamax] 100 mg PO DAILY 12/11/20 07/14/21 Venlafaxine HCl [Effexor XR] 75 mg PO BID 12/11/20 07/14/21 metFORMIN HCL [Glucophage] 1,000 mg PO BID 12/11/20 07/14/21 oxyCODONE-APAP 7.5-325MG [Percocet 1 tab PO TID PRN 01/03/21 07/14/21 7.5-325 mg] Ondansetron HCl [Zofran] 4 mg PO Q6H PRN 01/18/21 07/14/21 Triamterene/Hydrochlorothiazid 1 tab PO DAILY 02/09/21 07/14/21 [Triamterene-Hctz 37.5-25 mg Tb] Dulaglutide [Trulicity] 0.75 mg SQ WE 04/16/21 07/14/21 Insulin Aspart [NovoLOG Flexpen] 16 units SQ AC-TID 04/16/21 07/14/21 LORazepam [Ativan] 1 mg PO TID PRN 04/16/21 07/14/21 Potassium Chloride ER [K-Dur 20] 20 meq PO QID 04/16/21 07/14/21 Docusate [Colace] 100 mg PO BID PRN 04/30/21 07/14/21 polyethylene glycoL 3350 [Miralax] 17 gm PO DAILY PRN 04/30/21 07/14/21 Aspirin EC [Ecotrin Low Dose] 81 mg PO DAILY 07/14/21 07/14/21 Cariprazine HCl [Vraylar] 3 mg PO HS 07/14/21 07/14/21 Cyclobenzaprine [Flexeril] 10 mg PO TID PRN 07/14/21 07/14/21 Dicyclomine [Bentyl] 20 mg PO QID PRN 07/14/21 07/14/21 Ergocalciferol (Vitamin D2) 1,250 mcg PO Q30D 07/14/21 07/14/21 [Drisdol (50,000 Iu)] Ibuprofen [Motrin] 800 mg PO Q8H PRN 07/14/21 07/14/21 Linaclotide [Linzess] 145 mcg PO DAILY 07/14/21 07/14/21 Prazosin [Minipress] 1 mg PO HS 07/14/21 07/14/21 Previous Rx's Medication Instructions Recorded Ondansetron Odt [Zofran ODT] 4 mg PO Q8HR PRN #10 tab 07/14/21 Allergies Allergy/AdvReac Type Severity Reaction Status Date / Time bupropion [From Wellbutrin] Allergy Rash/Hives Verified 07/14/21 20:36 cephalexin [From Keflex] Allergy Rash/Hives Verified 07/14/21 20:36 propoxyphene Allergy Rash/Hives Verified 07/14/21 20:36 [From Joseph-N] Review of Systems ROS Statement: Those systems with pertinent positive or pertinent negative responses have been documented in the HPI. ROS Other: All systems not noted in ROS Statement are negative. Past Medical History Past Medical History: Diabetes Mellitus, GERD/Reflux, Hyperlipidemia, Thyroid Disorder Additional Past Medical History / Comment(s): hx ventral hernia, frequent uti's,twisted small bowel, HYPOKALEMIA, pancreatitis History of Any Multi-Drug Resistant Organisms: None Reported Past Surgical History: Bowel Resection, Section, Cholecystectomy, Hernia Repair, Hysterectomy, Joint Replacement, Orthopedic Surgery Additional Past Surgical History / Comment(s): bilat knees replaced,. thymus gland removal,. ventral hernia repair w/ mesh. COLONOSCOPY/EGD Past Anesthesia/Blood Transfusion Reactions: No Reported Reaction Additional Past Anesthesia/Blood Transfusion Reaction / Comment(s): no problems with prior blood transfusion in 1994 Past Psychological History: Anxiety, Depression, Panic Disorder, PTSD, Schizoaffective Disorder, Schizophrenia Smoking Status: Never smoker Past Alcohol Use History: None Reported Past Drug Use History: None Reported - Past Family History Mother Family Medical History: Cancer Additional Family Medical History / Comment(s): lung Father Family Medical History: Diabetes Mellitus, Myocardial Infarction ([place]) General Exam General appearance: alert, in no apparent distress Head exam: Present: atraumatic, normocephalic, normal inspection Eye exam: Present: PERRL, EOMI Pupils: Present: normal accommodation ENT exam: Present: mucous membranes moist Neck exam: Present: full ROM Respiratory exam: Present: normal lung sounds bilaterally, wheezes (Left lung expiratory wheeze). Absent: respiratory distress, rales, rhonchi, stridor Cardiovascular Exam: Present: regular rate, normal rhythm, normal heart sounds. Absent: systolic murmur, diastolic murmur, rubs, gallop, clicks GI/Abdominal exam: Present: soft, tenderness (His tenderness in all quadrants, worse in the right lower quadrant and epigastric area), normal bowel sounds. Absent: distended, guarding, rebound, rigid Extremities exam: Present: full ROM Back exam: Present: full ROM, paraspinal tenderness (Lumbar paraspinal tendern ess). Absent: vertebral tenderness Neurological exam: Present: alert, oriented X3, CN II-XII intact Psychiatric exam: Present: normal affect, normal mood Skin exam: Present: warm, dry, intact, normal color. Absent: rash Course Vital Signs 07/14/21 07/14/21 13:34 23:03 Temperature 99.1 F 97.8 F Pulse Rate 120 H 87 Respiratory 18 17 Rate Blood Pressure 136/80 131/77 O2 Sat by Pulse 98 98 Oximetry Medical Decision Making - Medical Decision Making This 51-year-old female presents emergency Department with abdominal pain, nausea, vomiting worsening over the last day. After fluids and Zofran, patient states her nausea and pain have significantly decreased. She states she is no longer nauseous but she still is having a little bit of abdominal pain. Labs revealed increased lactic acid, fluids were given. Lipase elevated on initial lab and then decreased. Patient does have diabetes and stated she will go home and check her glucose and use her insulin as directed for sure. Chest x-ray normal chest. No change to prior. Diaphragm is normal. Lungs are clear. CT abdomen and pelvis with contrast impression: Negative computed tomography scan abdomen and pelvis. Hepatomegaly stable compared to exam. Postsurgical changes on the anterior abdominal wall. No signs of thickened appendix. No adverse change compared to old exam. Patient was given Zofran and Tylenol #3 for home. Patient informed to follow up with primary care provider next 24-48 hours. She'll return precautions were discussed. Patient verbally agreed to plan. Patient sent home in stable condition. Case discussed with the attending, . - Lab Data Result diagrams: 07/14/21 14:07 07/14/21 14:07 Lab Results 07/14/21 07/14/21 07/14/21 Range/Units 14:07 14:07 15:46 WBC 11.3 H (3.8-10.6) k/uL RBC 4.43 (3.80-5.40) m/uL Hgb 13.0 (11.4-16.0) gm/dL Hct 39.4 (34.0-46.0) % MCV 88.9 (80.0-100.0) fL MCH 29.4 (25.0-35.0) pg MCHC 33.1 (31.0-37.0) g/dL RDW 16.0 H (11.5-15.5) % Plt Count 258 (150-450) k/uL MPV 9.6 Neutrophils % 65 % Lymphocytes % 26 % Monocytes % 4 % Eosinophils % 4 % Basophils % 1 % Neutrophils # 7.3 (1.3-7.7) k/uL Lymphocytes # 2.9 (1.0-4.8) k/uL Monocytes # 0.4 (0-1.0) k/uL Eosinophils # 0.4 (0-0.7) k/uL Basophils # 0.1 (0-0.2) k/uL Anisocytosis Slight PT (9.0-12.0) sec INR (<1.2) APTT (22.0-30.0) sec Sodium 137 (137-145) mmol/L Potassium 3.2 L (3.5-5.1) mmol/L Chloride 102 (98-107) mmol/L Carbon Dioxide 21 L (22-30) mmol/L Anion Gap 14 mmol/L BUN 12 (7-17) mg/dL Creatinine 0.59 (0.52-1.04) mg/dL Est GFR (CKD-EPI)AfAm >90 (>60 ml/min/1.73 sqM) Est GFR (CKD-EPI)NonAf >90 (>60 ml/min/1.73 sqM) Glucose 314 H (74-99) mg/dL Plasma Lactic Acid Shayan (0.7-2.0) mmol/L Calcium 8.6 (8.4-10.2) mg/dL Total Bilirubin 0.4 (0.2-1.3) mg/dL AST 30 (14-36) U/L ALT 26 (4-34) U/L Alkaline Phosphatase 151 H (38-126) U/L Troponin I (0.000-0.034) ng/mL Total Protein 6.4 (6.3-8.2) g/dL Albumin 3.5 (3.5-5.0) g/dL Amylase 42 (30-110) U/L Lipase 304 H (23-300) U/L Urine Color Light Yellow Urine Appearance Clear (Clear) Urine pH 6.5 (5.0-8.0) Ur Specific Hunt 1.032 (1.001-1.035) Urine Protein Negative (Negative) Urine Glucose (UA) 4+ H (Negative) Urine Ketones Negative (Negative) Urine Blood Negative (Negative) Urine Nitrite Negative (Negative) Urine Bilirubin Negative (Negative) Urine Urobilinogen <2.0 (<2.0) mg/dL Ur Leukocyte Esterase Small H (Negative) Urine RBC 1 (0-5) /hpf Urine WBC 1 (0-5) /hpf Ur Squamous Epith Cells 1 (0-4) /hpf 07/14/21 07/14/21 07/14/21 Range/Units 21:05 21:05 21:05 WBC (3.8-10.6) k/uL RBC (3.80-5.40) m/uL Hgb (11.4-16.0) gm/dL Hct (34.0-46.0) % MCV (80.0-100.0) fL MCH (25.0-35.0) pg MCHC (31.0-37.0) g/dL RDW (11.5-15.5) % Plt Count (150-450) k/uL MPV Neutrophils % % Lymphocytes % % Monocytes % % Eosinophils % % Basophils % % Neutrophils # (1.3-7.7) k/uL Lymphocytes # (1.0-4.8) k/uL Monocytes # (0-1.0) k/uL Eosinophils # (0-0.7) k/uL Basophils # (0-0.2) k/uL Anisocytosis PT 9.8 (9.0-12.0) sec INR 0.9 (<1.2) APTT 22.8 (22.0-30.0) sec Sodium (137-145) mmol/L Potassium (3.5-5.1) mmol/L Chloride (98-107) mmol/L Carbon Dioxide (22-30) mmol/L Anion Gap mmol/L BUN (7-17) mg/dL Creatinine (0.52-1.04) mg/dL Est GFR (CKD-EPI)AfAm (>60 ml/min/1.73 sqM) Est GFR (CKD-EPI)NonAf (>60 ml/min/1.73 sqM) Glucose (74-99) mg/dL Plasma Lactic Acid Shayan 2.2 H* (0.7-2.0) mmol/L Calcium (8.4-10.2) mg/dL Total Bilirubin (0.2-1.3) mg/dL AST (14-36) U/L ALT (4-34) U/L Alkaline Phosphatase (38-126) U/L Troponin I <0.012 (0.000-0.034) ng/mL Total Protein (6.3-8.2) g/dL Albumin (3.5-5.0) g/dL Amylase (30-110) U/L Lipase (23-300) U/L Urine Color Urine Appearance (Clear) Urine pH (5.0-8.0) Ur Specific Hunt (1.001-1.035) Urine Protein (Negative) Urine Glucose (UA) (Negative) Urine Ketones (Negative) Urine Blood (Negative) Urine Nitrite (Negative) Urine Bilirubin (Negative) Urine Urobilinogen (<2.0) mg/dL Ur Leukocyte Esterase (Negative) Urine RBC (0-5) /hpf Urine WBC (0-5) /hpf Ur Squamous Epith Cells (0-4) /hpf 07/14/21 Range/Units 21:05 WBC (3.8-10.6) k/uL RBC (3.80-5.40) m/uL Hgb (11.4-16.0) gm/dL Hct (34.0-46.0) % MCV (80.0-100.0) fL MCH (25.0-35.0) pg MCHC (31.0-37.0) g/dL RDW (11.5-15.5) % Plt Count (150-450) k/uL MPV Neutrophils % % Lymphocytes % % Monocytes % % Eosinophils % % Basophils % % Neutrophils # (1.3-7.7) k/uL Lymphocytes # (1.0-4.8) k/uL Monocytes # (0-1.0) k/uL Eosinophils # (0-0.7) k/uL Basophils # (0-0.2) k/uL Anisocytosis PT (9.0-12.0) sec INR (<1.2) APTT (22.0-30.0) sec Sodium (137-145) mmol/L Potassium (3.5-5.1) mmol/L Chloride (98-107) mmol/L Carbon Dioxide (22-30) mmol/L Anion Gap mmol/L BUN (7-17) mg/dL Creatinine (0.52-1.04) mg/dL Est GFR (CKD-EPI)AfAm (>60 ml/min/1.73 sqM) Est GFR (CKD-EPI)NonAf (>60 ml/min/1.73 sqM) Glucose (74-99) mg/dL Plasma Lactic Acid Shayan (0.7-2.0) mmol/L Calcium (8.4-10.2) mg/dL Total Bilirubin (0.2-1.3) mg/dL AST (14-36) U/L ALT (4-34) U/L Alkaline Phosphatase (38-126) U/L Troponin I (0.000-0.034) ng/mL Total Protein (6.3-8.2) g/dL Albumin (3.5-5.0) g/dL Amylase (30-110) U/L Lipase 207 (23-300) U/L Urine Color Urine Appearance (Clear) Urine pH (5.0-8.0) Ur Specific Hunt (1.001-1.035) Urine Protein (Negative) Urine Glucose (UA) (Negative) Urine Ketones (Negative) Urine Blood (Negative) Urine Nitrite (Negative) Urine Bilirubin (Negative) Urine Urobilinogen (<2.0) mg/dL Ur Leukocyte Esterase (Negative) Urine RBC (0-5) /hpf Urine WBC (0-5) /hpf Ur Squamous Epith Cells (0-4) /hpf Disposition Clinical Impression: Abdominal pain, Nausea and vomiting Disposition: HOME SELF-CARE Condition: Stable Instructions (If sedation given, give patient instructions): Acute Nausea and Vomiting (ED), Abdominal Pain (ED) Additional Instructions: Please follow up with primary care provider in next 24-48 hours. Return to the emergency department with any new, worsening, or concerning symptoms. Prescriptions: Ondansetron Odt [Zofran ODT] 4 mg PO Q8HR PRN #10 tab PRN Reason: Nausea Is patient prescribed a controlled substance at d/c from ED?: No Referrals: Krystal Meek MD [Primary Care Provider] - 1-2 days Time of Disposition: 22:50
[2021-07-14] MEDS ORDERED: POTASSIUM CHLORIDE ER 20 MEQ TAB.ER PO STA (21:29)
[2021-07-14 21:50] LABS: INR 0.9 (<1.2); Partial Thromboplastin Time 22.8 sec (22.0-30.0); Prothrombin Time 9.8 sec (9.0-12.0)
--- NOTE | 2021-07-14 22:21 | XR ---
EXAMINATION TYPE: XR chest 2V DATE OF EXAM: 07/14/2021 COMPARISON: 05/15/2021 HISTORY: Wheezing TECHNIQUE: FINDINGS: Heart and mediastinum are normal. Lungs are clear. Diaphragm is normal. Bony thorax appears normal. IMPRESSION: Normal chest. No change.
--- NOTE | 2021-07-14 22:32 | CT ---
EXAMINATION TYPE: CT abdomen pelvis w con DATE OF EXAM: 07/14/2021 COMPARISON: 04/30/2021 HISTORY: RLQ pain CT DLP: 2353.2 mGycm Automated exposure control for dose reduction was used. CONTRAST: Performed with IV Contrast, patient injected with 100 mL of Isovue 300. Images obtained from the diaphragm to the floor of the pelvis with IV contrast. The lung bases are clear. There is no pleural effusion. Heart size is normal. There is no pericardial effusion. Liver spleen stomach pancreas appear intact. Liver is enlarged and measures 25 cm. There are clips fr om cholecystectomy. The bile ducts are not dilated. There is no adrenal mass. Kidneys show satisfactory contrast opacification. There is no hydronephrosi s. There is no retroperitoneal adenopathy. Ureters are not dilated. Bladder distends smoothly. There is no inguinal hernia. There is no free fluid in the pelvis. There is left-sided pelvic surgical clip . There is apparent hysterectomy. There is some postsurgical changes with stranding on the anterior abd ominal wall. There is no ascites or free air. There is no bowel obstruction. Appendix not clearly see n. No sign of thickened appendix. There is no mesenteric edema. The lumbar vertebrae have normal alignment. The disc spaces are normal. There is no compression fracture. Bony pelvis is intact. The hip joints appear intact. Sacroiliac ellen ints are intact. IMPRESSION: Negative CT scan abdomen and pelvis. Hepatomegaly stable compared to old exam Postsurgical changes on the anterior abdominal wall. Appendix not seen. No sign of thickened appendix. No adverse change com pared to old exam.
[2021-07-14] MEDS ORDERED: HYDROmorphone 0.5 MG/0.5 ML SYRINGE IVP STA (22:50)
[2021-07-14] MEDS ORDERED: ACET/COD 300 MG/30 MG STARTER PACK 6 TAB BTL PO STA (22:51)
[2021-07-14 23:12] VITALS: BP 131/77; PULSE 87; RESP 17; TEMP 97.8
== END 2021-07-14 23:12 | disposition home or self-care (01) ==
LOC: EC 13:15
DX: R10.31 Right lower quadrant pain (principal); R11.2 Nausea with vomiting, unspecified; E11.9 Type 2 diabetes mellitus without complications; K21.9 Gastro-esophageal reflux disease without esophagitis; E78.5 Hyperlipidemia, unspecified; E07.9 Disorder of thyroid, unspecified; F41.9 Anxiety disorder, unspecified; F32.A Depression, unspecified; F43.10 Post-traumatic stress disorder, unspecified; F25.9 Schizoaffective disorder, unspecified; Z79.4 Long term (current) use of insulin; Z79.84 Long term (current) use of oral hypoglycemic drugs; Z90.49 Acquired absence of other specified parts of digestive tract; Z90.710 Acquired absence of both cervix and uterus; Z96.653 Presence of artificial knee joint, bilateral
CPT/HCPCS: 99284; 96374; 96375; 36415; 80053; 82150; 83605; 83690; 84484; 85025; 85610; 85730; 81001; 71046; 74177; J2405; J2270; Q9967; 93005

== ENCOUNTER → 2021-07-21 | Outpatient (CLI) | payer OTHER ==
[2021-07-22 13:07] LABS: Coronavirus SARS CoV-2 Not Detected (Not Detected)
== END | disposition home or self-care (01) ==
LOC: LABPAT 14:49
PROVIDERS: ATTEND Surgery Plastic and Reconstructive Surgery
DX: Z01.812 Encounter for preprocedural laboratory examination (principal); Z20.822 Contact with and (suspected) exposure to COVID-19

== ENCOUNTER 2021-08-02 20:32 | Inpatient (IN) | payer OTHER ==
--- NOTE | 2021-08-02 22:01 | ED ---
Weakness HPI - General Chief complaint: Head Injury Stated complaint: Fall, Dizziness Time Seen by Provider: 08/02/21 21:23 Source: patient, RN notes reviewed, old records reviewed Mode of arrival: EMS Limitations: no limitations - History of Present Illness Initial comments: This is a 51-year-old female to the emergency room today. Patient is presented today for evaluation regards to weakness fall backwards fall from standing hit her head patient feels very shaky uneasy some cough shortness of breath abdominal pain nausea no travel history no sick contacts no fever cough or congestion. Patient states she has had episodes of feelings before she hit her head when she fell the back of her heart she did lose consciousness. No change in medications no drugs or alcohol MD Complaint: generalized weakness, lack of energy, difficulty walking -: hour(s) Location: generalized Severity: moderate Quality: tingling Consistency: constant Improves with: none Worsens with: none Context: history of similar Associated Symptoms: confusion, nausea/vomiting - Related Data Home Medications Medication Instructions Recorded Confirmed Omeprazole [PriLOSEC] 20 mg PO DAILY 01/12/19 07/21/21 Atorvastatin [Lipitor] 80 mg PO DAILY 11/10/19 07/21/21 Levothyroxine Sodium [Synthroid] 150 mcg PO DAILY 11/10/19 07/21/21 Insulin Glargine,Hum.rec.anlog 80 unit SQ BID 05/14/20 07/21/21 [Lantus Solostar Pen] Empagliflozin [Jardiance] 25 mg PO DAILY 12/11/20 07/21/21 Topiramate [Topamax] 100 mg PO DAILY 12/11/20 07/21/21 Venlafaxine HCl [Effexor XR] 75 mg PO BID 12/11/20 07/21/21 metFORMIN HCL [Glucophage] 1,000 mg PO BID 12/11/20 07/21/21 ondansetron HCL [Zofran] 4 mg PO Q6H PRN 01/18/21 07/21/21 Triamterene/Hydrochlorothiazid 1 tab PO BID 02/09/21 07/21/21 [Triamterene-Hctz 37.5-25 mg Tb] Dulaglutide [Trulicity] 0.75 mg SQ WE 04/16/21 07/21/21 Insulin Aspart [NovoLOG Flexpen] 16 units SQ AC-TID 04/16/21 07/21/21 LORazepam [Ativan] 1 mg PO TID PRN 04/16/21 07/21/21 Potassium Chloride ER [K-Dur 20] 20 meq PO BID 04/16/21 07/21/21 Aspirin EC [Ecotrin Low Dose] 81 mg PO DAILY 07/14/21 07/21/21 Cariprazine HCl [Vraylar] 3 mg PO HS 07/14/21 07/21/21 Dicyclomine [Bentyl] 20 mg PO QID PRN 07/14/21 07/21/21 Ergocalciferol (Vitamin D2) 1,250 mcg PO Q30D 07/14/21 07/21/21 [Drisdol (50,000 Iu)] Ibuprofen [Motrin] 800 mg PO Q8H PRN 07/14/21 07/21/21 Linaclotide [Linzess] 145 mcg PO DAILY 07/14/21 07/21/21 Prazosin [Minipress] 1 mg PO HS 07/14/21 07/21/21 oxyCODONE-APAP 10-325MG [Percocet 1 tab PO Q6HR PRN 07/21/21 07/21/21 10-325 mg] Allergies Allergy/AdvReac Type Severity Reaction Status Date / Time bupropion [From Wellbutrin] Allergy Rash/Hives Verified 07/21/21 14:32 cephalexin [From Keflex] Allergy Rash/Hives Verified 07/21/21 14:32 propoxyphene Allergy Rash/Hives Verified 07/21/21 14:32 [From Darvocet-N] Review of Systems ROS Statement: Those systems with pertinent positive or pertinent negative responses have been documented in the HPI. ROS Other: All systems not noted in ROS Statement are negative. Past Medical History Past Medical History: Diabetes Mellitus, GERD/Reflux, Hyperlipidemia, Thyroid Disorder Additional Past Medical History / Comment(s): hx ventral hernia, frequent uti's,twisted small bowel, HYPOKALEMIA, pancreatitis History of Any Multi-Drug Resistant Organisms: None Reported Past Surgical History: Bowel Resection, Section, Cholecystectomy, Hernia Repair, Hysterectomy, Joint Replacement, Orthopedic Surgery Additional Past Surgical History / Comment(s): bilat knees replaced,. thymus gland removal,. ventral hernia repair w/ mesh. COLONOSCOPY/EGD Past Anesthesia/Blood Transfusion Reactions: No Reported Reaction Additional Past Anesthesia/Blood Transfusion Reaction / Comment(s): no problems with prior blood transfusion in 1994 Past Psychological History: Anxiety, Depression, Panic Disorder, PTSD, Schizoaffective Disorder, Schizophrenia Smoking Status: Never smoker - Past Family History Mother Family Medical History: Cancer Additional Family Medical History / Comment(s): lung Father Family Medical History: Diabetes Mellitus, Myocardial Infarction ([place]) General Exam Limitations: no limitations General appearance: alert, in no apparent distress Head exam: Present: atraumatic, normocephalic, normal inspection Eye exam: Present: normal appearance, PERRL, EOMI. Absent: scleral icterus, conjunctival injection, periorbital swelling ENT exam: Present: normal exam, mucous membranes moist Neck exam: Present: normal inspection. Absent: tenderness, meningismus, lymphadenopathy Respiratory exam: Present: normal lung sounds bilaterally. Absent: respiratory distress, wheezes, rales, rhonchi, stridor Cardiovascular Exam: Present: normal rhythm, tachycardia, normal heart sounds. Absent: systolic murmur, diastolic murmur, rubs, gallop, clicks GI/Abdominal exam: Present: soft, tenderness, normal bowel sounds. Absent: distended, guarding, rebound, rigid Extremities exam: Present: normal inspection, full ROM, normal capillary refill. Absent: tenderness, pedal edema, joint swelling, calf tenderness Back exam: Present: normal inspection Neurological exam: Present: alert, oriented X3, CN II-XII intact Psychiatric exam: Present: normal affect, normal mood Skin exam: Present: warm, dry, intact, normal color. Absent: rash Course Vital Signs 08/02/21 08/02/21 20:47 23:24 Temperature 98.2 F Pulse Rate 104 H 93 Respiratory 16 20 Rate Blood Pressure 124/78 114/73 O2 Sat by Pulse 98 98 Oximetry - Reevaluation(s) Reevaluation #1: 08/03/21 00:51 Medical record is reviewed Reevaluation #2: 08/03/21 00:51 Patient still complaining of weakness and not feeling well abdominal pain Reevaluation #3: 08/03/21 00:51 Patient informed results and questions answered - Consultations Consultation #1: Spoke with sound physicians will admit this patient Medical Decision Making - Medical Decision Making 51 female to the emergency department for evaluation. Patient is safe for evaluation of weakness fall no triadic injury from fall. Patient does have low potassium we'll admit for potassium replacement and monitoring of strength in condition - Lab Data Result diagrams: 08/02/21 22:25 08/02/21 22:25 Lab Results 08/02/21 08/02/21 08/02/21 Range/Units 22:25 22:25 22:29 WBC 10.6 (3.8-10.6) k/uL RBC 4.13 (3.80-5.40) m/uL Hgb 12.3 (11.4-16.0) gm/dL Hct 36.9 (34.0-46.0) % MCV 89.3 (80.0-100.0) fL MCH 29.9 (25.0-35.0) pg MCHC 33.4 (31.0-37.0) g/dL RDW 15.2 (11.5-15.5) % Plt Count 313 (150-450) k/uL MPV 8.1 Neutrophils % 63 % Lymphocytes % 29 % Monocytes % 4 % Eosinophils % 3 % Basophils % 1 % Neutrophils # 6.7 (1.3-7.7) k/uL Lymphocytes # 3.1 (1.0-4.8) k/uL Monocytes # 0.4 (0-1.0) k/uL Eosinophils # 0.3 (0-0.7) k/uL Basophils # 0.1 (0-0.2) k/uL Sodium 139 (137-145) mmol/L Potassium 2.6 L* (3.5-5.1) mmol/L Chloride 108 H (98-107) mmol/L Carbon Dioxide 21 L (22-30) mmol/L Anion Gap 10 mmol/L BUN 15 (7-17) mg/dL Creatinine 0.54 (0.52-1.04) mg/dL Est GFR (CKD-EPI)AfAm >90 (>60 ml/min/1.73 sqM) Est GFR (CKD-EPI)NonAf >90 (>60 ml/min/1.73 sqM) Glucose 227 H (74-99) mg/dL Calcium 7.8 L (8.4-10.2) mg/dL Total Bilirubin 0.2 (0.2-1.3) mg/dL AST 23 (14-36) U/L ALT 14 (4-34) U/L Alkaline Phosphatase 101 (38-126) U/L Total Protein 5.6 L (6.3-8.2) g/dL Albumin 3.1 L (3.5-5.0) g/dL Amylase 34 (30-110) U/L Lipase 258 (23-300) U/L Urine Color Light Yellow Urine Appearance Clear (Clear) Urine pH 7.0 (5.0-8.0) Ur Specific Floris 1.031 (1.001-1.035) Urine Protein Negative (Negative) Urine Glucose (UA) 4+ H (Negative) Urine Ketones Negative (Negative) Urine Blood Negative (Negative) Urine Nitrite Negative (Negative) Urine Bilirubin Negative (Negative) Urine Urobilinogen <2.0 (<2.0) mg/dL Ur Leukocyte Esterase Negative (Negative) - Radiology Data Radiology results: report reviewed (CT brain C-spine chest and abdomen x-rays are negative for significant acute disease), image reviewed Disposition Clinical Impression: Hypomagnesemia, Hypokalemia, Fall, Weakness, Abdominal pain Disposition: ADMITTED IP TO THIS HOSP Condition: Good Is patient prescribed a controlled substance at d/c from ED?: No Referrals: Krystal Meek MD [Primary Care Provider] - 1-2 days
--- NOTE | 2021-08-02 22:04 | CT ---
EXAMINATION TYPE: CT brain judeine wo con DATE OF EXAM: 08/02/2021 COMPARISON: None HISTORY: fell hitting head, ams, confusion CT DLP: 1596.6 mGycm Automated exposure control for dose reduction was used. Images of the brain and cervical spine obtained without contrast. Ventricles have normal size. There is no mass effect or midline shift. There is no sign of intracrani al hemorrhage. Calvarium is intact. There is normal aeration of the mastoid sinuses. Skull base is in tact. There is straightening of the mid cervical spine. There is C5-6 degenerative mild disc space narrowin g and spurring of the endplates. Facet joints are intact. There is no subluxation. IMPRESSION: Minor degenerative disc changes at C5-6. No fracture. Negative CT scan of the brain.
[2021-08-02] MEDS ORDERED: ONDANSETRON 4 MG/2 ML VIAL IVP STA (22:13)
[2021-08-02] MEDS ORDERED: SODIUM CHLORIDE 0.9% 1,000 ML IV STA (22:13)
[2021-08-02] MEDS ORDERED: MORPHINE SULFATE 4 MG/ML SYRINGE IV STA (22:13)
[2021-08-02 22:37] LABS: Basophils # (A) 0.1 k/uL (0-0.2); Basophils % (A) 1 %; Eosinophils # (A) 0.3 k/uL (0-0.7); Eosinophils % (A) 3 %; HCT 36.9 % (34.0-46.0); HGB 12.3 gm/dL (11.4-16.0); Lymphocytes # (A) 3.1 k/uL (1.0-4.8); Lymphocytes % (A) 29 %; MCH 29.9 pg (25.0-35.0); MCHC 33.4 g/dL (31.0-37.0); MCV 89.3 fL (80.0-100.0); Mean Platelet Volume 8.1; Monocytes # (A) 0.4 k/uL (0-1.0); Monocytes % (A) 4 %; Neutrophils # (A) 6.7 k/uL (1.3-7.7); Neutrophils % (A) 63 %; Platelet Count 313 k/uL (150-450); RBC 4.13 m/uL (3.80-5.40); RDW 15.2 % (11.5-15.5); WBC 10.6 k/uL (3.8-10.6)
[2021-08-02 22:46] LABS: ALT 14 U/L (4-34); AST 23 U/L (14-36); African American GFR (CKD) >90 (>60 ml/min/1.73 sqM); Albumin 3.1 g/dL (3.5-5.0); Alkaline Phosphatase 101 U/L (38-126); Amylase 34 U/L (30-110); Anion Gap 10 mmol/L; Blood Urea Nitrogen 15 mg/dL (7-17); Calcium 7.8 mg/dL (8.4-10.2); Carbon Dioxide 21 mmol/L (22-30); Chloride 108 mmol/L (98-107); Glucose 227 mg/dL (74-99); Lipase 258 U/L (23-300); Non-African American GFR(CKD) >90 (>60 ml/min/1.73 sqM); Sodium 139 mmol/L (137-145); Total Bilirubin 0.2 mg/dL (0.2-1.3); Total Protein 5.6 g/dL (6.3-8.2)
[2021-08-02 22:48] LABS: Appearance,Urine Clear (Clear); Bilirubin,Urine Negative (Negative); Blood,Urine Negative (Negative); Color,Urine Light Yellow; Glucose,Urine (UA) 4+ (Negative); Ketones,Urine Negative (Negative); Leukocyte Esterase,Urine Negative (Negative); Nitrite,Urine Negative (Negative); Protein,Urine Negative (Negative); Specific Gravity,Urine 1.031 (1.001-1.035); Urobilinogen,Urine <2.0 mg/dL (<2.0)
[2021-08-02 22:48] LABS: Potassium 2.6 mmol/L (3.5-5.1)
--- NOTE | 2021-08-02 23:00 | XR ---
EXAMINATION TYPE: XR KUB portable DATE OF EXAM: 08/02/2021 COMPARISON: 04/30/2021 HISTORY: Pain TECHNIQUE: 2 views FINDINGS: There is no sign of intestinal obstruction or pneumoperitoneum. Fecal pattern is normal. Th ere is no sign of a mass. There are clips from cholecystectomy. There are surgical clips in the pelvi s. There is no evidence of mass. There are no calcifications over the kidneys. IMPRESSION: Nonacute abdomen. No adverse change.
--- NOTE | 2021-08-02 23:01 | XR ---
EXAMINATION TYPE: XR chest 1V portable DATE OF EXAM: 08/02/2021 COMPARISON: 07/14/2021 HISTORY: Wheezing TECHNIQUE: Single view FINDINGS: Heart and mediastinum are normal. Lungs are clear. Diaphragm is normal. Bony thorax appears normal. IMPRESSION: Normal chest. No change.
[2021-08-02] MEDS ORDERED: POTASSIUM CHLORIDE ER 20 MEQ TAB.ER PO STA (23:40)
[2021-08-02] MEDS ORDERED: POTASSIUM BICARBONATE/CIT AC 20 MEQ TABLET.EFF PO ONE (23:40)
[2021-08-03] MEDS ORDERED: NALOXONE 0.4 MG/ML 1 ML VIAL IV PRN (00:36)
[2021-08-03] MEDS ORDERED: ACETAMINOPHEN TAB 325 MG TAB PO PRN (00:36)
[2021-08-03] MEDS ORDERED: MORPHINE SULFATE 4 MG/ML SYRINGE IV PRN (00:36)
[2021-08-03] MEDS ORDERED: ONDANSETRON 4 MG/2 ML VIAL IVP PRN (00:36)
[2021-08-03] MEDS ORDERED: MAGNESIUM OXIDE 400 MG TAB PO STA (00:37)
[2021-08-03] MEDS: SODIUM CHLORIDE 0.9% 1,000 ML IV SCH ×3 (00:55→18:01)
--- NOTE | 2021-08-03 04:38 | P.HPIM ---
History of Present Illness H&P Date: 08/03/21 Chief Complaint: syncope 51 year old female with DM patient comes in after having an episode of syncope falling backwards and hitting her head. she reports passing out and falling twice today which is unusual for her. she has not been feeling well for about a week now reporting symptoms of dizziness, with vertigo feeling nauseous and occasional vomiting, also reporting diarrhea. no GI bleeding, no fever no chills, no SOB no chest pain . she also reports severe frontal headache, 9/10 in severity throbbing in nature that has been going on for a while now. she feels even more dizzy when she closes her eyes, she describes room spinning clockwise. and ringing sounds in her ears. otherwise denies double vision, or any other focal neuro deficits no recent travel, or sick contact, no recent hospital stay denies any smoking, recreational drugs or heavy regular alcohol use. inthe ED, CT of the head no acute pathology blood work showed significant hypokalemia patient does use a walker at baseline Review of Systems Pertinent positives as noted in HPI. All other systems were reviewed and are negative Past Medical History Past Medical History: Diabetes Mellitus, GERD/Reflux, Hyperlipidemia, Thyroid Disorder Additional Past Medical History / Comment(s): hx ventral hernia, frequent uti's,twisted small bowel, HYPOKALEMIA, pancreatitis History of Any Multi-Drug Resistant Organisms: None Reported Past Surgical History: Bowel Resection, Section, Cholecystectomy, Hernia Repair, Hysterectomy, Joint Replacement, Orthopedic Surgery Additional Past Surgical History / Comment(s): bilat knees replaced,. thymus gland removal,. ventral hernia repair w/ mesh. COLONOSCOPY/EGD Past Anesthesia/Blood Transfusion Reactions: No Reported Reaction Additional Past Anesthesia/Blood Transfusion Reaction / Comment(s): no problems with prior blood transfusion in 1994 Past Psychological History: Anxiety, Depression, Panic Disorder, PTSD, Schizoaffective Disorder, Schizophrenia Smoking Status: Never smoker - Past Family History Mother Family Medical History: Cancer Additional Family Medical History / Comment(s): lung Father Family Medical History: Diabetes Mellitus, Myocardial Infarction ([place]) Medications and Allergies Home Medications Medication Instructions Recorded Confirmed Type Omeprazole [PriLOSEC] 20 mg PO DAILY 01/12/19 07/21/21 History Atorvastatin [Lipitor] 80 mg PO DAILY 11/10/19 07/21/21 History Levothyroxine Sodium [Synthroid] 150 mcg PO DAILY 11/10/19 07/21/21 History Insulin Glargine,Hum.rec.anlog 80 unit SQ BID 05/14/20 07/21/21 History [Lantus Solostar Pen] Empagliflozin [Jardiance] 25 mg PO DAILY 12/11/20 07/21/21 History Topiramate [Topamax] 100 mg PO DAILY 12/11/20 07/21/21 History Venlafaxine HCl [Effexor XR] 75 mg PO BID 12/11/20 07/21/21 History metFORMIN HCL [Glucophage] 1,000 mg PO BID 12/11/20 07/21/21 History ondansetron HCL [Zofran] 4 mg PO Q6H PRN 01/18/21 07/21/21 History Triamterene/Hydrochlorothiazid 1 tab PO BID 02/09/21 07/21/21 History [Triamterene-Hctz 37.5-25 mg Tb] Dulaglutide [Trulicity] 0.75 mg SQ WE 04/16/21 07/21/21 History Insulin Aspart [NovoLOG Flexpen] 16 units SQ AC-TID 04/16/21 07/21/21 History LORazepam [Ativan] 1 mg PO TID PRN 04/16/21 07/21/21 History Potassium Chloride ER [K-Dur 20] 20 meq PO BID 04/16/21 07/21/21 History Aspirin EC [Ecotrin Low Dose] 81 mg PO DAILY 07/14/21 07/21/21 History Cariprazine HCl [Vraylar] 3 mg PO HS 07/14/21 07/21/21 History Dicyclomine [Bentyl] 20 mg PO QID PRN 07/14/21 07/21/21 History Ergocalciferol (Vitamin D2) 1,250 mcg PO Q30D 07/14/21 07/21/21 History [Drisdol (50,000 Iu)] Ibuprofen [Motrin] 800 mg PO Q8H PRN 07/14/21 07/21/21 History Linaclotide [Linzess] 145 mcg PO DAILY 07/14/21 07/21/21 History Prazosin [Minipress] 1 mg PO HS 07/14/21 07/21/21 History oxyCODONE-APAP 10-325MG [Percocet 1 tab PO Q6HR PRN 07/21/21 07/21/21 History 10-325 mg] Allergies Allergy/AdvReac Type Severity Reaction Status Date / Time bupropion [From Wellbutrin] Allergy Rash/Hives Verified 07/21/21 14:32 cephalexin [From Keflex] Allergy Rash/Hives Verified 07/21/21 14:32 propoxyphene Allergy Rash/Hives Verified 07/21/21 14:32 [From Darvocet-N] Physical Exam Vitals: Vital Signs Temp Pulse Resp BP Pulse Ox 08/02/21 23:24 98.2 F 93 20 114/73 98 08/02/21 20:47 104 H 16 124/78 98 Intake and Output 08/02/21 08/02/21 08/03/21 14:59 22:59 06:59 Other: Weight 98.883 kg Constitutional: No acute distress, conversant, pleasant Eyes: Anicteric sclerae, moist conjunctiva, Pupils equal round reactive to light ENMT: NC/AT Oropharynx clear, no erythema, or exudates Neck: Supple, no masses, or JVD No carotid bruits No thyromegaly Lungs: Clear to auscultation Clear to percussion Normal respiratory effort, no accessory muscle use Cardiovascular: Heart regular in rate and rhythm, No murmurs, gallops, or rubs No peripheral edema Abdominal: Soft Nontender, no guarding, rebound or rigidity Abdomen moving with respiration Normoactive bowel sounds No hepatomegaly, No splenomegaly No palpable mass No abdominal wall hernia noted Skin: Normal temperature, tone, texture, turgor No induration No subcutaneous nodules No rash, lesions No ulcers Extremities: No digital cyanosis No clubbing Pedal pulses intact and symmetrical Radial pulses intact and symmetrical No calf tenderness Psychiatric: Alert and oriented to person, place and time Appropriate affect fair judgement Neuro Muscles Strength 4/5 in all 4 extremities Sensation to light touch grossly present throughout Cranial nerves II-XII grossly intact patient walked to the bathroom with assistance, taking short steps Lymphatics: no palpable cervical or supraclavicular , or inguinal lymph nodes Results CBC & Chem 7: 08/02/21 22:25 08/02/21 22:25 Labs: Abnormal Lab Results - Last 24 Hours (Table) 08/02/21 08/02/21 Range/Units 22:25 22:29 Potassium 2.6 L* (3.5-5.1) mmol/L Chloride 108 H (98-107) mmol/L Carbon Dioxide 21 L (22-30) mmol/L Glucose 227 H (74-99) mg/dL Calcium 7.8 L (8.4-10.2) mg/dL Total Protein 5.6 L (6.3-8.2) g/dL Albumin 3.1 L (3.5-5.0) g/dL Urine Glucose (UA) 4+ H (Negative) Assessment and Plan Assessment: generalized weakness acute gastroenteritis hypokalemia syncope episodes with closed head injury subacute severe frontal headache plan supportive care neuro checks IVF hydration with normal saline bolus 1 L then maintenance at 130 cc per hour replace K , and follow up levels fall precautions foundry tender MRI of the brain monitor vital signs pain control DVT PPX heparin sc tid anticipated length of stay < 2 midnights full code
[2021-08-03 07:27] LABS: Glucose,Whole Blood 190 mg/dL (75-99)
[2021-08-03 08:13] LABS: HCT 38.6 % (34.0-46.0); HGB 12.7 gm/dL (11.4-16.0); MCH 29.8 pg (25.0-35.0); MCHC 32.8 g/dL (31.0-37.0); MCV 90.6 fL (80.0-100.0); Mean Platelet Volume 8.3; Platelet Count 337 k/uL (150-450); RBC 4.26 m/uL (3.80-5.40); RDW 15.6 % (11.5-15.5); WBC 6.9 k/uL (3.8-10.6)
[2021-08-03 08:29] LABS: Potassium 3.4 mmol/L (3.5-5.1)
[2021-08-03 08:30] LABS: African American GFR (CKD) >90 (>60 ml/min/1.73 sqM); Anion Gap 4 mmol/L; Blood Urea Nitrogen 14 mg/dL (7-17); Carbon Dioxide 24 mmol/L (22-30); Chloride 112 mmol/L (98-107); Glucose 130 mg/dL (74-99); Magnesium 1.7 mg/dL (1.6-2.3); Non-African American GFR(CKD) >90 (>60 ml/min/1.73 sqM); Sodium 140 mmol/L (137-145)
[2021-08-03] MEDS: INSULIN ASPART (NovoLOG) 100 UNIT/ML VIAL SQ SCH ×4 (08:49→21:05)
[2021-08-03] MEDS: HEPARIN SODIUM,PORCINE/PF 5,000 UNIT/0.5 ML SYRINGE SQ SCH ×3 (08:49→21:06)
[2021-08-03 12:42] LABS: Glucose,Whole Blood 177 mg/dL (75-99)
[2021-08-03] MEDS ORDERED: MECLIZINE 25 MG TAB PO PRN (12:52)
--- NOTE | 2021-08-03 14:52 | P.PN ---
Subjective Progress Note Date: 08/03/21 Principal diagnosis: syncope Patient is a 51 yo CF with a hx of DM2, GERD, HTN, and Hypothyroidism who presented with dizziness and syncope. She is slightly tachycardic on arrival with a heart rate of 104. Laboratory analysis was significant for potassium of 2.6, carbon dioxide 21, glucose 227. Urinalysis showed 4+ glucose. CT of the head and cervical spine should degeneration of C5-6 with no other acute process. Chest x-ray showed no acute process, KUB showed no acute process. She was started on IV fluids, magnesium, and potassium. She is placed in observation for further monitoring. Patient seen and examined at bedside. She reports that she's been having dizziness for 2-3 weeks. She has already seen her primary physician Dr. Declan Lombardi who initially started her on losartan, and Antivert. She has scheduled an outpatient initial evaluation with cardiology regarding her dizziness. She states that she is dizzy all the time he had with her eyes closed but it is worse when she gets up to move. She denies any unusual nausea or vomiting t balbina, however she did have some nausea yesterday. She has chronic abdominal cramping for which she takes Bentyl. We had a long discussion that her dizziness may be a side effect polypharmacy. General: non toxic, no distress, obese, appears older than stated age Derm: warm, dry Head: atraumatic, normocephalic, symmetric Eyes: EOMI, no lid lag, anicteric sclera Mouth: no lip lesion, mucus membranes moist Cardiovascular: S1S2 reg, no murmur, positive posterior tibial pulse bilateral, Lungs: Decreased breath sounds bilateral, no rhonchi, no rales , no accessory muscle use Abdominal: soft, nontender to palpation, no guarding, no appreciable organomegaly Ext: no gross muscle atrophy, no edema, no contractures Neuro: CN II-XI grossly intact, no focal neuro deficits Psych: Alert, oriented, appropriate affect Assessment/plan: Dizziness with syncope -IV fluids, echocardiogram, check orthostatic vital signs, add telemetry -Add MRI to rule out central process -Suspect this is secondary to polypharmacy. I have decreased the patient's Ativan. Will stop bentyl as dizziness if a frequent side effect. I discussed with her attempting to limit medications however she feels as though she needs all her medications currently- would attempt to slowly decrease if MRI and echo are negative Diabetes mellitus type 2 with hyperglycemia -Resume long-acting insulin, sliding scale insulin, follow blood sugars -Check hemoglobin A1c -Was started on losartan for diabetes - trulicity 0 hold metformin Hypokalemia -Improving -Continue with replacement -Repeat potassium and magnesium levels in a.m. Hypothyroidism -Synthroid Dyslipidemia -Statin, fenofibrate History of schizophrenia, anxiety, and depression -Effexor, Topamax, para Zosyn, Vrylar DVT prophylaxis:Heparin Discussed with: Patient, nursing Anticipated discharge: in AM Anticipated discharge place: home A total of 37 minutes was spent on the care of this complex patient more than 50% of the time was spent in counseling and care coordination. Objective - Vital Signs Vital signs: Vital Signs Temp 98.1 F 08/03/21 07:00 Pulse 88 08/03/21 07:00 Resp 16 08/03/21 07:00 BP 105/69 08/03/21 07:00 Pulse Ox 97 08/03/21 07:00 Intake & Output 08/02/21 08/03/21 08/03/21 18:59 06:59 18:59 Intake Total 1158 Balance 1158 Weight 98.883 kg Intake: Intake, IV Titration 1040 Amount Sodium Chloride 0.9% 1, 1040 000 ml @ 130 mls/hr IV . [id number] [facility] Rx#:[id number] Oral 118 Other: # Voids 1 1 - Labs CBC & Chem 7: 08/03/21 08:00 08/03/21 08:00 Labs: Abnormal Lab Results - Last 24 Hours (Table) 08/02/21 08/02/21 08/03/21 Range/Units 22:25 22:29 07:26 RDW (11.5-15.5) % Potassium 2.6 L* (3.5-5.1) mmol/L Chloride 108 H (98-107) mmol/L Carbon Dioxide 21 L (22-30) mmol/L Glucose 227 H (74-99) mg/dL POC Glucose (mg/dL) 190 H (75-99) mg/dL Calcium 7.8 L (8.4-10.2) mg/dL Total Protein 5.6 L (6.3-8.2) g/dL Albumin 3.1 L (3.5-5.0) g/dL Urine Glucose (UA) 4+ H (Negative) 08/03/21 08/03/21 08/03/21 Range/Units 08:00 08:00 12:41 RDW 15.6 H (11.5-15.5) % Potassium 3.4 L (3.5-5.1) mmol/L Chloride 112 H (98-107) mmol/L Carbon Dioxide (22-30) mmol/L Glucose 130 H (74-99) mg/dL POC Glucose (mg/dL) 177 H (75-99) mg/dL Calcium 8.0 L (8.4-10.2) mg/dL Total Protein (6.3-8.2) g/dL Albumin (3.5-5.0) g/dL Urine Glucose (UA) (Negative)
[2021-08-03] MEDS: oxyCODONE-APAP 10-325MG 1 EACH TAB PO SCH ×2 (15:52→21:06)
[2021-08-03] MEDS: ATORVASTATIN 80 MG TAB PO SCH (15:52)
[2021-08-03] MEDS: LORazepam 0.5 MG TAB PO SCH ×2 (15:52→21:06)
[2021-08-03] MEDS ORDERED: LORazepam 1 MG TAB PO SCH (16:00)
[2021-08-03 17:19] LABS: Glucose,Whole Blood 150 mg/dL (75-99)
[2021-08-03] MEDS ORDERED: metFORMIN 500 MG TAB PO SCH (17:30)
[2021-08-03 20:45] LABS: Glucose,Whole Blood 336 mg/dL (75-99)
[2021-08-03] MEDS: INSULIN DETEMIR (LEVEMIR) 100 UNIT/ML SYR SQ SCH (21:05)
[2021-08-03] MEDS: VENLAFAXINE HCL ER 75 MG CAP PO SCH (21:06)
[2021-08-03] MEDS: TOPIRAMATE 100 MG TAB PO SCH (21:06)
[2021-08-03] MEDS: PRAZOSIN 1 MG CAP PO SCH (21:06)
[2021-08-04] MEDS: Cariprazine Hcl [Vraylar] PO SCH ×2 (05:49→20:05)
[2021-08-04] MEDS: LEVOTHYROXINE 75 MCG TAB PO SCH (06:05)
[2021-08-04 07:19] LABS: Glucose,Whole Blood 131 mg/dL (75-99)
[2021-08-04 07:38] LABS: African American GFR (CKD) >90 (>60 ml/min/1.73 sqM); Anion Gap 3 mmol/L; Blood Urea Nitrogen 11 mg/dL (7-17); Calcium 7.6 mg/dL (8.4-10.2); Carbon Dioxide 21 mmol/L (22-30); Chloride 115 mmol/L (98-107); Glucose 115 mg/dL (74-99); Magnesium 1.7 mg/dL (1.6-2.3); Non-African American GFR(CKD) >90 (>60 ml/min/1.73 sqM); Potassium 3.7 mmol/L (3.5-5.1); Sodium 139 mmol/L (137-145)
[2021-08-04] MEDS: INSULIN ASPART (NovoLOG) 100 UNIT/ML VIAL SQ SCH ×4 (08:00→20:40)
[2021-08-04] MEDS: INSULIN DETEMIR (LEVEMIR) 100 UNIT/ML SYR SQ SCH ×2 (08:00→20:40)
[2021-08-04] MEDS: LORazepam 0.5 MG TAB PO SCH ×3 (08:01→20:39)
[2021-08-04] MEDS: FENOFIBRATE 160 MG TAB PO SCH (08:01)
[2021-08-04] MEDS: LOSARTAN 25 MG TAB PO SCH (08:01)
[2021-08-04] MEDS: oxyCODONE-APAP 10-325MG 1 EACH TAB PO SCH ×3 (08:01→20:39)
[2021-08-04] MEDS: ATORVASTATIN 80 MG TAB PO SCH (08:01)
[2021-08-04] MEDS: PANTOPRAZOLE 40 MG TABLET PO SCH (08:01)
[2021-08-04] MEDS: ASPIRIN 81 MG PO SCH (08:01)
[2021-08-04] MEDS: VENLAFAXINE HCL ER 75 MG CAP PO SCH ×2 (08:01→20:40)
[2021-08-04] MEDS: HEPARIN SODIUM,PORCINE/PF 5,000 UNIT/0.5 ML SYRINGE SQ SCH ×3 (08:02→20:40)
[2021-08-04] MEDS: TOPIRAMATE 100 MG TAB PO SCH ×2 (08:02→20:40)
[2021-08-04] MEDS: Empagliflozin [Jardiance] PO SCH (08:03)
[2021-08-04] MEDS: SODIUM CHLORIDE 0.9% 1,000 ML IV SCH ×3 (08:03→23:16)
[2021-08-04] MEDS ORDERED: ERGOCALCIFEROL 1,250 MCG (50,000 IU) CAPSULE PO SCH (09:00)
--- NOTE | 2021-08-04 09:47 | ECHOF ---
Referral Reason:syncope MEASUREMENTS -------- HEIGHT: 157.5 cm WEIGHT: 98.9 kg BP: 116/79 RVIDd: 3.0 cm (< 3.3) IVSd: 1.2 cm (0.6 - 1.1) LVIDd: 3.6 cm (3.9 - 5.3) LVPWd: 1.4 cm (0.6 - 1.1) IVSs: 1.6 cm LVIDs: 1.5 cm LVPWs: 1.4 cm LAESV Index (A-L): 28.71 ml/m Ao Diam: 2.6 cm (2.0 - 3.7) AV Cusp: 2.0 cm (1.5 - 2.6) LA Diam: 5.0 cm (2.7 - 3.8) MV E Rolando: 1.28 m/s MV DecT: 209 ms MV A Rolando: 0.78 m/s MV E/A Ratio: 1.65 RAP: 5.00 mmHg RVSP: 32.01 mmHg FINDINGS -------- Sinus rhythm. This was a technically difficult study with suboptimal views. The left ventricular size is normal. There is mild concentric left ventricular hypertrophy. Overa ll left ventricular systolic function is normal with, an EF between 55 - 60 %. The right ventricle is normal in size. Normal LA size by volume 22+/-6 ml/m2. The right atrial size is normal. 5.0mg of Lumason was utilized for enhancement of images Interatrial and interventricular septum intact. There is no evidence of aortic regurgitation. There is no evidence of aortic stenosis. No mitral regurgitation. Mild tricuspid regurgitation present. There is no evidence of pulmonary hypertension. The right v entricular systolic pressure, as measured by Doppler, is 32.01mmHg. There is no pulmonic regurgitation present. The aortic root size is normal. IVC Not well visulized. There is no pericardial effusion. CONCLUSIONS -------- 1. The left ventricular size is normal. 2. There is mild concentric left ventricular hypertrophy. 3. Overall left ventricular systolic function is normal with, an EF between 55 - 60 %. 4. Mild tricuspid regurgitation present. SHOEMAKING CUTTER: Rosalba Wills, [facility]
[2021-08-04 12:45] LABS: Glucose,Whole Blood 155 mg/dL (75-99)
--- NOTE | 2021-08-04 15:11 | MR ---
MR brain without contrast HISTORY: Headache, vertigo and tinnitus Multiplanar multisequence imaging obtained through the brain, correlation to CT brain dated 08/02/2021 There is no restricted diffusion. There is no hemorrhage or hydrocephalus. There are scattered perive ntricular and subcortical hyperintensities on inversion recovery T2-weighted sequences, approximately 5-10 lesions, largest lesion in the left frontal lobe on axial image 17 measures 8 mm. The orbits sh ow a symmetric appearance. Inflammatory changes present within the ethmoid air cells. There are expec katy vascular flow voids. Some inflammatory change present in the mastoids right greater than left. Ce rebellopontine angles, corpus callosum, cervical medullary junction are unremarkable, there is a part ially empty sella. IMPRESSION: Nonspecific white matter demyelination, consider multiple sclerosis in the appropriate cl inical setting, hypertension, migraine headaches, vasculitis and Lyme disease. Mild sinus disease. Th ere is some fluid retention within the mastoid air cells right greater than left.
--- NOTE | 2021-08-04 16:14 | P.PN ---
<Cruz Scott - Last Filed: 08/04/21 15:42> Subjective Progress Note Date: 08/04/21 Hospital course: Patient is a very pleasant 51-year-old female with a past medical history of h ypertension, type 2 insulin-dependent diabetes mellitus, hypothyroidism, and GERD. She presented to the emergency department 08/03/21 with a chief complaint of dizziness with syncopal episode. Patient was found to be slightly tachycardic upon arrival with heart rate of 104 otherwise vital signs unre markable. She underwent full evaluation in the emergency department. She was found to have hypokalemia with potassium of 2.6, carbon dioxide 21, and glucose of 227. She underwent a CT cervical spine which revealed mild degenerative changes at C5 through C6 negative for acute fractures. CT of brain was negative for acute intercranial process. Chest x-ray negative for acute cardiopulmonary process. KUB negative for acute intra-abdominal process. Patient was started on IV fluids, magnesium, and potassium supplementation. She was admitted to observation unit with consult to cardiology. She reported having dizziness for 2-3 weeks and was seen by her PCP Dr. Meek who initially started her on losartan and Antivert but states she had no improvement. Patient was admitted under our services to observation unit with consult to cardiology. She underwent an echocardiogram which revealed a normal EF between 55 and 60% with mild tricuspid regurgitation. She is scheduled to go down for MRI later this afternoon at 1:45 PM. Physical examination: Patient was seen and fully evaluated at the bedside this morning. She reports continued dizziness at rest and with movement. Patient reports his dizziness did increase with sitting up. In addition patient reports pain in the back of her head radiating into right temporal region. She denies having any changes in vision, hearing, tinnitus, chest pain, palpitations, shortness of breath, or experiencing any numbness/tingling/weakness in her extremities. Patient scheduled to undergo MRI later this afternoon at 1:45 PM. General: non toxic, no distress, obese, appears older than stated age Derm: warm, dry Head: atraumatic, normocephalic, symmetric Eyes: EOMI, no lid lag, anicteric sclera Mouth: no lip lesion, mucus membranes moist Cardiovascular: S1S2 reg, no murmur, positive posterior tibial pulse bilateral, Lungs: Decreased breath sounds bilateral, no rhonchi, no rales , no accessory muscle use Abdominal: soft, nontender to palpation, no guarding, no appreciable organomegaly Ext: no gross muscle atrophy, no edema, no contractures Neuro: CN II-XI grossly intact, no focal neuro deficits Psych: Alert, oriented, appropriate affect Assessment and plan of care: Intractable Dizziness with syncope -Continue hydration with IV fluids -Orthostatic vitals negative. -MRI to be completed to rule out central process -Fall precautions -Neuro checks -Echocardiogram normal findings with EF 55-60% and mild tricuspid regurgitation. -Meclizine 25 mg by mouth 3 times daily as needed for dizziness -Hold Bentyl as dizziness can be a side effect. Diabetes mellitus type 2 with hyperglycemia -Resume long-acting insulin, sliding scale insulin, follow blood sugars -Check hemoglobin A1c -Was started on losartan for diabetes -Hold trulicity and metformin, placed on glycemic protocol with NovoLog sliding scale. Hypokalemia, resolved Hypothyroidism -Continue daily medication regimen with Synthroid Dyslipidemia -Statin, fenofibrate History of schizophrenia, anxiety, and depression -Effexor, Topamax, Prazosin, Vraylar CODE STATUS: Full code DVT prophylaxis: Heparin Discussed with: Patient and RN Anticipated discharge: Clinical course to determine Anticipated discharge place: home A total of 35 minutes was spent on the care of this complex patient more than 50% of the time was spent in counseling and care coordination. Objective - Vital Signs Vital signs: Vital Signs Temp 97.6 F 08/04/21 07:39 Pulse 90 08/04/21 07:39 Resp 16 08/04/21 07:39 BP 103/71 08/04/21 07:39 Pulse Ox 96 08/04/21 02:06 Intake & Output 08/03/21 08/04/21 08/04/21 18:59 06:59 18:59 Intake Total 1878 118 Balance 1878 118 Intake: Intake, IV Titration 1040 Amount Sodium Chloride 0.9% 1, 1040 000 ml @ 130 mls/hr IV . Q7H42M [facility] Rx#:[id number] Oral 838 118 Other: # Voids 3 1 - Labs CBC & Chem 7: 08/03/21 08:00 08/04/21 06:30 Labs: Abnormal Lab Results - Last 24 Hours (Table) 08/03/21 08/03/21 08/03/21 Range/Units 12:41 17:18 20:43 Chloride (98-107) mmol/L Carbon Dioxide (22-30) mmol/L Glucose (74-99) mg/dL POC Glucose (mg/dL) 177 H 150 H 336 H (75-99) mg/dL Calcium (8.4-10.2) mg/dL 08/04/21 08/04/21 Range/Units 06:30 07:18 Chloride 115 H (98-107) mmol/L Carbon Dioxide 21 L (22-30) mmol/L Glucose 115 H (74-99) mg/dL POC Glucose (mg/dL) 131 H (75-99) mg/dL Calcium 7.6 L (8.4-10.2) mg/dL <Hemanth Izquierdo - Last Filed: 08/04/21 17:14> Subjective I reviewed the documentation as provided by the RAMÓN above, who is the original author of this note. I agree with the documented assessment and plan, with the following changes: None Objective - Vital Signs Vital signs: Vital Signs Temp 98.3 F 08/04/21 15:00 Pulse 88 08/04/21 15:00 Resp 16 08/04/21 15:00 BP 119/79 08/04/21 15:00 Pulse Ox 98 08/04/21 15:00 Intake & Output 08/03/21 08/04/21 08/04/21 18:59 06:59 18:59 Intake Total 1878 358 Balance 1878 358 Intake: Intake, IV Titration 1040 Amount Sodium Chloride 0.9% 1, 1040 000 ml @ 130 mls/hr IV . Q7H42M [facility] Rx#:[id number] Oral 838 358 Other: # Voids 3 1 2 - Labs CBC & Chem 7: 08/03/21 08:00 08/04/21 06:30 Labs: Abnormal Lab Results - Last 24 Hours (Table) 08/03/21 08/03/21 08/04/21 Range/Units 17:18 20:43 06:30 Chloride 115 H (98-107) mmol/L Carbon Dioxide 21 L (22-30) mmol/L Glucose 115 H (74-99) mg/dL POC Glucose (mg/dL) 150 H 336 H (75-99) mg/dL Calcium 7.6 L (8.4-10.2) mg/dL 08/04/21 08/04/21 Range/Units 07:18 12:39 Chloride (98-107) mmol/L Carbon Dioxide (22-30) mmol/L Glucose (74-99) mg/dL POC Glucose (mg/dL) 131 H 155 H (75-99) mg/dL Calcium (8.4-10.2) mg/dL
[2021-08-04 17:18] LABS: Glucose,Whole Blood 191 mg/dL (75-99)
--- NOTE | 2021-08-04 19:11 | MR ---
EXAMINATION TYPE: MR brain w con DATE OF EXAM: 08/04/2021 COMPARISON: MR brain same dated earlier time, CT 08/02/2021 HISTORY: Demyelinating disease TECHNIQUE: Multiplanar, multisequence images of the brain and brainstem is performed without and with IV contras t, utilizing 10 mL intravenous Gadavist . FINDINGS: Diffusion weighted images demonstrate no evidence of a recent infarct or other diffusion ab normality. There is no extra-axial fluid collection or significant change in white matter signal abn ormality, number of plaques is estimated at 15, better estimated due to sagittal images submitted. T he ventricular system and cisternal spaces are normal in size and appearance. The brain volume is ag e appropriate. Midline structures demonstrate stable morphology. The craniocervical junction appears within normal limits. Post contrast images demonstrate no abnormal enhancement. The dural venous sinuses appear pa tent. The visualized sinuses are clear and the globes are intact. IMPRESSION: No enhancing plaque is evident
[2021-08-04 20:25] LABS: Glucose,Whole Blood 231 mg/dL (75-99)
[2021-08-04] MEDS: PRAZOSIN 1 MG CAP PO SCH (20:39)
[2021-08-05] MEDS: LEVOTHYROXINE 75 MCG TAB PO SCH (05:41)
[2021-08-05] MEDS: SODIUM CHLORIDE 0.9% 1,000 ML IV SCH (05:51)
[2021-08-05 07:24] VITALS: RESP 16; TEMP 97.4
[2021-08-05 07:25] VITALS: BP 102/64; PULSE 83
[2021-08-05 08:01] LABS: Glucose,Whole Blood 109 mg/dL (75-99)
[2021-08-05] MEDS: INSULIN DETEMIR (LEVEMIR) 100 UNIT/ML SYR SQ SCH (08:11)
[2021-08-05] MEDS: ATORVASTATIN 80 MG TAB PO SCH (08:12)
[2021-08-05] MEDS: ASPIRIN 81 MG PO SCH (08:12)
[2021-08-05] MEDS: LORazepam 0.5 MG TAB PO SCH (08:12)
[2021-08-05] MEDS: LOSARTAN 25 MG TAB PO SCH (08:12)
[2021-08-05] MEDS: oxyCODONE-APAP 10-325MG 1 EACH TAB PO SCH (08:12)
[2021-08-05] MEDS: PANTOPRAZOLE 40 MG TABLET PO SCH (08:12)
[2021-08-05] MEDS: HEPARIN SODIUM,PORCINE/PF 5,000 UNIT/0.5 ML SYRINGE SQ SCH (08:12)
[2021-08-05] MEDS: TOPIRAMATE 100 MG TAB PO SCH (08:12)
[2021-08-05] MEDS: VENLAFAXINE HCL ER 75 MG CAP PO SCH (08:12)
[2021-08-05] MEDS: FENOFIBRATE 160 MG TAB PO SCH (08:13)
[2021-08-05] MEDS: Empagliflozin [Jardiance] PO SCH (08:13)
[2021-08-05] MEDS: INSULIN ASPART (NovoLOG) 100 UNIT/ML VIAL SQ SCH (08:14)
[2021-08-05] MEDS ORDERED: CYANOCOBALAMIN 1,000 MCG/ML 1 ML VIAL IM ONE (10:15)
--- NOTE | 2021-08-05 10:39 | P.CNNES ---
History of Present Illness Consult date: 08/05/21 Requesting physician: Cruz Scott Reason for Consult: abnormal MRI findings, dizziness syncopal episode History of Present Illness: Patient is a 51-year-old female came to the hospital on 08/02/2021 by ambulance at around 8:30 PM. EMS flow sheet not available in the chart. She has been experiencing intermittent tinnitus in both ears, like a train whistle, off and on for the last 2-3 weeks. Shortly after that tinnitus, she develops vertigo, that lasts for about 5-10 minutes. If she is walking, she has to be very careful so she does not fall. She tries to sit down. Walks with a walker. Patient denies any loss of hearing, no pain in the ear although she feels a lot of pressure in the eardrum bilaterally. The dizziness can occur when she is sitting doing nothing, or sometimes when she is changing her position. Sometimes it can happen when she is standing. Patient states that on Wednesday, on the day of admission, she woke up and was having dizziness. She describes it as lightheadedness but then became spinning and vertigo. She went to the bathroom, to pass a urine. When she was done, she got up, reached down to pull her pants, when she felt dizzy, fainted and hit her head on the bath tub. She was out for a few seconds. She got up off the floor and then fell again from the standing height. Patient denies any history of vertigo or any falls in the past. Patient's is a sometimes walking she feels off balance. Denies any numbness or tingling, focal weakness slurred speech or double vision. Computed tomography scan of the head was normal. CT of the cervical spine showed minor degenerative disc changes at C5 6. No fracture. I personally reviewed computed tomography scan of the head, and agree with the findings. No acute process. No significant paranasal sinus disease. Blood test shows normal CBC, Chem-7 with sodium 139 potassium 2.6. Renal functions, hepatic panel are normal. MMA lays and lipase are normal. UA negative. Patient's last hemoglobin A1c 11.0 on 07/10/2021. Patient's B12 310 on 07/10/2021, folate 14.6, vitamin D is decreased 14.2. B1 is normal 83. TSH is decreased 0.238. Patient takes omeprazole, Lipitor 80 mg, levothyroxine 150 g, insulin, Effexor, Topamax 100 mg twice a day, metformin 1000 mg twice a day, Jardiance 25 mg, lorazepam, insulin, Trulicity, aspirin 81 mg, vitamin D 50,000 units every month oxycodone, Vrylar 4.5 mg at bedtime, losartan 25 mg, clonidine 0.1 mg, fenofibrate, at CTZ 25 mg, meclizine, Zofran, prazosin 2 mg at bedtime. Patient has history of diabetes for 5 years, not well controlled. Patient is going to follow up with shear tender Dr. Marshall on 08/14/2021. Patient denies any tobacco or alcohol use. She uses a walker for ambulation. Patient has been undergoing telemetry monitoring, no arrhythmia noted. Only normal sinus rhythm. Review of Systems As above in detail. All other 14 point review of systems reviewed are unremarkable. She has history of bilateral knee replacement. Denies any numbness or tingling. She does have balance issues. Past Medical History Past Medical History: Diabetes Mellitus, GERD/Reflux, Hyperlipidemia, Thyroid Disorder Additional Past Medical History / Comment(s): hx ventral hernia, frequent uti's,twisted small bowel, HYPOKALEMIA, pancreatitis History of Any Multi-Drug Resistant Organisms: None Reported Past Surgical History: Bowel Resection, Section, Cholecystectomy, Hernia Repair, Hysterectomy, Joint Replacement, Orthopedic Surgery Additional Past Surgical History / Comment(s): bilat knees replaced,. thymus gland removal,. ventral hernia repair w/ mesh. COLONOSCOPY/EGD Past Anesthesia/Blood Transfusion Reactions: No Reported Reaction Additional Past Anesthesia/Blood Transfusion Reaction / Comment(s): no problems with prior blood transfusion in 1994 Past Psychological History: Anxiety, Depression, Panic Disorder, PTSD, Schizoaffective Disorder, Schizophrenia Smoking Status: Never smoker - Past Family History Mother Family Medical History: Cancer Additional Family Medical History / Comment(s): lung Father Family Medical History: Diabetes Mellitus, Myocardial Infarction ([place]) Medications and Allergies Home Medications Medication Instructions Recorded Confirmed Type Omeprazole [PriLOSEC] 20 mg PO DAILY 01/12/19 08/03/21 History Atorvastatin [Lipitor] 80 mg PO DAILY 11/10/19 08/03/21 History Levothyroxine Sodium [Synthroid] 150 mcg PO DAILY 11/10/19 08/03/21 History Insulin Glargine,Hum.rec.anlog 80 unit SQ BID 05/14/20 08/03/21 History [Lantus Solostar Pen] Empagliflozin [Jardiance] 25 mg PO DAILY 12/11/20 08/03/21 History Topiramate [Topamax] 100 mg PO BID 12/11/20 08/03/21 History Venlafaxine HCl [Effexor XR] 75 mg PO BID 12/11/20 08/03/21 History metFORMIN HCL [Glucophage] 1,000 mg PO BID 12/11/20 08/03/21 History Dulaglutide [Trulicity] 0.75 mg SQ WE 04/16/21 08/03/21 History Insulin Aspart [NovoLOG Flexpen] 16 units SQ AC-TID 04/16/21 08/03/21 History LORazepam [Ativan] 1 mg PO TID 04/16/21 08/03/21 History Aspirin EC [Ecotrin Low Dose] 81 mg PO DAILY 07/14/21 08/03/21 History Dicyclomine [Bentyl] 20 mg PO QID 07/14/21 08/03/21 History Ergocalciferol (Vitamin D2) 1,250 mcg PO Q30D 07/14/21 08/03/21 History [Drisdol (50,000 Iu)] Ibuprofen [Motrin] 800 mg PO Q8H PRN 07/14/21 08/03/21 History oxyCODONE-APAP 10-325MG [Percocet 1 tab PO TID 07/21/21 08/03/21 History 10-325 mg] Cariprazine HCl [Vraylar] 4.5 mg PO HS 08/03/21 08/03/21 History Fenofibrate Nanocrystallized 145 mg PO DAILY 08/03/21 08/03/21 History [Fenofibrate] Losartan [Cozaar] 25 mg PO DAILY 08/03/21 08/03/21 History Meclizine [Antivert] 25 mg PO DAILY PRN 08/03/21 08/03/21 History Ondansetron Odt [Zofran Odt] 4 mg PO Q8H PRN 08/03/21 08/03/21 History Prazosin HCl 2 mg PO HS 08/03/21 08/03/21 History cloNIDine HCL [Catapres] 0.1 mg PO DAILY PRN 08/03/21 08/03/21 History hydroCHLOROthiazide [Hydrodiuril] 25 mg PO DAILY 08/03/21 08/03/21 History Allergies Allergy/AdvReac Type Severity Reaction Status Date / Time bupropion [From Wellbutrin] Allergy Rash/Hives Verified 08/03/21 12:05 cephalexin [From Keflex] Allergy Rash/Hives Verified 08/03/21 12:05 propoxyphene Allergy Rash/Hives Verified 08/03/21 12:05 [From Darvocet-N] Physical Examination - Vital Signs Vital Signs: Vital Signs Temp Pulse Pulse Pulse Resp BP BP 08/05/21 07:04 83 102/64 08/05/21 07:02 83 111/71 08/05/21 07:00 97.4 F L 85 16 08/05/21 02:09 97.8 F 83 17 08/04/21 19:25 97.9 F 101 H 100 98 17 108/65 112/68 08/04/21 15:00 98.3 F 88 16 119/79 BP BP Pulse Ox 08/05/21 07:04 08/05/21 07:02 08/05/21 07:00 115/78 97 08/05/21 02:09 96/56 99 08/04/21 19:25 111/69 97 08/04/21 15:00 98 Intake and Output 08/04/21 08/05/21 08/05/21 22:59 06:59 14:59 Intake Total 118 Balance 118 Intake: Oral 118 Other: # Voids 1 1 Patient is a middle aged female, in no acute distress. No aphasia or dysarthria. Patient is alert awake oriented to time place and person. Speech and language functions are normal. Attention, concentration and fund of knowledge is adequate. On cranial examination, pupils are equal, round and reacting to light, visual girard are full on confrontation, extraocular muscles are intact. Patient does have nystagmus on the end gaze bilaterally, as well as upgaze. Face is symmetric, tongue protrudes to the midline. Palatal elevation and sensation normal, hearing is slightly decreased for finger rubbing on the left as compared to the right. Otherwise the hearing is normal for routine conversation. Her shoulder shrug normal, facial sensation normal. On muscle strength testing, there is no pronator drift and the strength is normal in arms and legs distally and proximally. Deep tendon reflexes are symmetric, 2 at the biceps and brachioradialis, 1+ in the knees, 2 ankles and plantars downgoing bilaterally. Sensory to touch is equal with no neglect. Cerebellar function showed no ataxia for [id number] testing. No dysdiadochokinesia. Tone and bulk of muscles normal. Gait deferred. On general examination, there is no carotid bruit or murmur, S1-S2 audible. Abdomen is soft nontender. No organomegaly. Bowel sounds present. Chest is clear to auscultation. Peripheral pulses are present. Patient has mild peripheral edema. Results - Laboratory Findings CBC and BMP: 08/03/21 08:00 08/04/21 06:30 Abnormal Lab Findings: Abnormal Labs 08/02/21 08/02/21 08/03/21 22:25 22:29 07:26 RDW Potassium 2.6 L* Chloride 108 H Carbon Dioxide 21 L Glucose 227 H POC Glucose (mg/dL) 190 H Calcium 7.8 L Total Protein 5.6 L Albumin 3.1 L Urine Glucose (UA) 4+ H 08/03/21 08/03/21 08/03/21 08:00 08:00 12:41 RDW 15.6 H Potassium 3.4 L Chloride 112 H Carbon Dioxide Glucose 130 H POC Glucose (mg/dL) 177 H Calcium 8.0 L Total Protein Albumin Urine Glucose (UA) 08/03/21 08/03/21 08/04/21 17:18 20:43 06:30 RDW Potassium Chloride 115 H Carbon Dioxide 21 L Glucose 115 H POC Glucose (mg/dL) 150 H 336 H Calcium 7.6 L Total Protein Albumin Urine Glucose (UA) 08/04/21 08/04/21 08/04/21 07:18 12:39 17:16 RDW Potassium Chloride Carbon Dioxide Glucose POC Glucose (mg/dL) 131 H 155 H 191 H Calcium Total Protein Albumin Urine Glucose (UA) 08/04/21 08/05/21 20:23 07:59 RDW Potassium Chloride Carbon Dioxide Glucose POC Glucose (mg/dL) 231 H 109 H Calcium Total Protein Albumin Urine Glucose (UA) Assessment and Plan Assessment: * 51-year-old female with 2-3 week history of intermittent episodes of tinnitus, pressure in the ear and vertigo, lasting for 5-10 minutes. Patient probably has labyrinthine dysfunction, rule out Mnire's disease. * Diabetes, poorly controlled * Obesity * Hypertension * Hypokalemia * Hyperlipidemia * Hypothyroidism Plan: * MRI of the brain with and without contrast revealed nonspecific white matter demyelination, consider multiple sclerosis in the appropriate clinical setting, hypertension, migraine headaches, vasculitis and Lyme disease. Mild sinus disease. There is some fluid retention within the mastoid air cells right greater than left. No enhancing plaques is evident. I personally reviewed MRI of the brain and agree with the findings. The white matter lesions are nonspecific, likely from small vessel disease. The distribution does not appear like typical MS. * 2-D echo revealed normal left ventricular size. Mild concentric LVH. EF is between 55-60%. Mild TR. * Telemetry monitoring so far showing normal sinus rhythm with no arrhythmia. * Patient's last B12 level was borderline 310. Patient was given vitamin B12 1000 g injection 1. She was recommended to start taking vitamin B12 1000 g sublingually daily. * Patient recommended to optimize control of diabetes to target A1c < 7.0. * Continue aspirin 81 mg and statins. * Recommend patient follow up with ENT specialist for VNG to rule out labyrinthitis versus Mnire's disease. * Meclizine 25 mg as needed for vertigo. * Neurologically clear. * Thank you for the consult.
[2021-08-05 11:53] LABS: Glucose,Whole Blood 155 mg/dL (75-99)
--- NOTE | 2021-08-05 15:06 | P.DS ---
Providers Date of admission: 08/04/21 16:01 Expected date of discharge: 08/05/21 Attending physician: Francesca Torres Consults: 08/04/21 15:49 Consult Physician Routine Consulting Provider: Chip Reese Consult Reason/Comments: abnormal MRI findings, dizziness syncopal episode Do you want consulting provider notified?: Yes Primary care physician: Krystal Meek Hospital Course: Final diagnosis Intractable dizziness with syncope Diabetes mellitus type 2 uncontrolled with hyperglycemia Hypokalemia, resolved Hypothyroidism Dyslipidemia History of schizophrenia, anxiety, depression GI prophylaxis DVT prophylaxis Full code Discharge disposition Patient is being discharged in a stable condition with guarded prognosis to home. Patient will follow-up with Dr. Meek upon discharge. Patient will also need to follow-up with endocrine doctor Joanna, nephrology Dr. Carpenter, and ENT Dr. Rebolledo in the outpatient setting. Patient provided prescriptions to follow-up with repeat labs. Total time taken is greater than 35 minutes. Hospital course This is a 51-year-old female who was recently admitted with dizziness and syncopal episode and was being closely monitored. Patient was found to have severe hypokalemia of 2.6 and replaced per protocol recommendations. Patient also had a CT of the cervical spine which revealed a mild degenerative change at the C5 through C6 negative for any fractures but neurology was consulted CT of the brain was negative for any acute intracranial process. Patient underwent MRI which revealed demyelinating disease unable to rule out MS versus hypertension, migraine headaches, vasculitis, Lyme disease and patient was made inpatient for neurological workup. Patient was cleared by neurology recommending ENT follow-up continued VNG studies. Patient was also evaluated by cardiology and cleared to follow-up in the outpatient setting. Patient's most recent echo shows an EF of 55-60% with some mild tricuspid regurgitation present. On discharge discussed with the patient that we strongly recommend following up with endocrine for further evaluation of possible [place]'s disease and also nephrology follow-up for persistent hypokalemia and a further evaluate for any mineralocorticoid abnormalities. Resources were provided. Also encouraged patient to follow-up with repeat labs in 2-3 days and up her prescription was provided. Patient is asking when she can go home. Currently no reports of chest pain, shortness of breath, or palpitations. Patient is afebrile. No reports of nausea or vomiting and patient is tolerating diet. Patient will be discharged home today. Guarded prognosis. On exam vital signs are stable. Cardio S1, S2 are muffled. Respiratory shows diminished breath sounds at the bases with no wheezing or rhonchi noted. Abdomen is soft, obese, and nontender. Nervous system shows no focal deficits. Please refer to medication reconciliation sheet for a list of medications. The impression and plan of care has been dictated by Melody Lawson, nurse practitioner as directed. MD Jadiel I have performed a history and examination and MDM of this patient, discussed the same with the dictator, and agree with the dictator's assessment and plan as written ,documented as a scribe. Based on total visit time, I have performed more than 50% of the visit. Total number of minutes spent on this visit, 10 minutes. Any additional findings or plans will be noted. Patient Condition at Discharge: Good Plan - Discharge Summary Discharge Rx Participant: Yes New Discharge Prescriptions: New Acetaminophen Tab [Tylenol] 650 mg PO Q6HR PRN #30 tab PRN Reason: Mild Pain Or Fever > 100.5 Cyanocobalamin [Vitamin B-12] 1,000 mcg PO DAILY 30 Days #60 tab Continue Omeprazole [PriLOSEC] 20 mg PO DAILY Atorvastatin [Lipitor] 80 mg PO DAILY Levothyroxine Sodium [Synthroid] 150 mcg PO DAILY Insulin Glargine,Hum.rec.anlog [Lantus Solostar Pen] 80 unit SQ BID Venlafaxine HCl [Effexor XR] 75 mg PO BID Topiramate [Topamax] 100 mg PO BID metFORMIN HCL [Glucophage] 1,000 mg PO BID Empagliflozin [Jardiance] 25 mg PO DAILY Aspirin EC [Ecotrin Low Dose] 81 mg PO DAILY oxyCODONE-APAP 10-325MG [Percocet 10-325 mg] 1 tab PO TID Cariprazine HCl [Vraylar] 4.5 mg PO HS Losartan [Cozaar] 25 mg PO DAILY LORazepam [Ativan] 1 mg PO TID Insulin Aspart [NovoLOG Flexpen] 16 units SQ AC-TID Dulaglutide [Trulicity] 0.75 mg SQ WE Ergocalciferol (Vitamin D2) [Drisdol (50,000 Iu)] 1,250 mcg PO Q30D cloNIDine HCL [Catapres] 0.1 mg PO DAILY PRN PRN Reason: Anxiety Fenofibrate Nanocrystallized [Fenofibrate] 145 mg PO DAILY Ondansetron Odt [Zofran ODT] 4 mg PO Q8H PRN PRN Reason: Nausea Prazosin HCl 2 mg PO HS Changed Meclizine [Antivert] 25 mg PO TID #60 tab Discontinued Ibuprofen [Motrin] 800 mg PO Q8H PRN PRN Reason: Pain Or Fever > 100.5 Dicyclomine [Bentyl] 20 mg PO QID hydroCHLOROthiazide [Hydrodiuril] 25 mg PO DAILY Discharge Medication List Omeprazole [PriLOSEC] 20 mg PO DAILY 01/12/19 [History] Atorvastatin [Lipitor] 80 mg PO DAILY 11/10/19 [History] Levothyroxine Sodium [Synthroid] 150 mcg PO DAILY 11/10/19 [History] Insulin Glargine,Hum.rec.anlog [Lantus Solostar Pen] 80 unit SQ BID 05/14/20 [History] Empagliflozin [Jardiance] 25 mg PO DAILY 12/11/20 [History] Topiramate [Topamax] 100 mg PO BID 12/11/20 [History] Venlafaxine HCl [Effexor XR] 75 mg PO BID 12/11/20 [History] metFORMIN HCL [Glucophage] 1,000 mg PO BID 12/11/20 [History] Dulaglutide [Trulicity] 0.75 mg SQ WE 04/16/21 [History] Insulin Aspart [NovoLOG Flexpen] 16 units SQ AC-TID 04/16/21 [History] LORazepam [Ativan] 1 mg PO TID 04/16/21 [History] Aspirin EC [Ecotrin Low Dose] 81 mg PO DAILY 07/14/21 [History] Ergocalciferol (Vitamin D2) [Drisdol (50,000 Iu)] 1,250 mcg PO Q30D 07/14/21 [History] oxyCODONE-APAP 10-325MG [Percocet 10-325 mg] 1 tab PO TID 07/21/21 [History] Cariprazine HCl [Vraylar] 4.5 mg PO HS 08/03/21 [History] Fenofibrate Nanocrystallized [Fenofibrate] 145 mg PO DAILY 08/03/21 [History] Losartan [Cozaar] 25 mg PO DAILY 08/03/21 [History] Ondansetron Odt [Zofran ODT] 4 mg PO Q8H PRN 08/03/21 [History] Prazosin HCl 2 mg PO HS 08/03/21 [History] cloNIDine HCL [Catapres] 0.1 mg PO DAILY PRN 08/03/21 [History] Acetaminophen Tab [Tylenol] 650 mg PO Q6HR PRN #30 tab 08/05/21 [Rx] Cyanocobalamin [Vitamin B-12] 1,000 mcg PO DAILY 30 Days #60 tab 08/05/21 [Rx] Meclizine [Antivert] 25 mg PO TID #60 tab 08/05/21 [Rx] Follow up Appointment(s)/Referral(s): Krystal Meek MD [Primary Care Provider] - 1-2 days Bhupinder Rebolledo MD [STAFF PHYSICIAN] - 1 Week John Marshall MD [REFERRING] - 1 Week Alley Carpenter MD [STAFF PHYSICIAN] - 1 Week Ambulatory/Diagnostic Orders: Basic Metabolic Panel [LAB.AMB] Time Frame: 3 Days, Location: None Selected Activity/Diet/Wound Care/Special Instructions: Activity Limited until follow-up Follow-up primary care provider on discharge Follow-up with ENT for possible VNG study Follow-up with nephrology for further workup on hypokalemia Follow-up with endocrine for 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
[2021-08-06] MEDS ORDERED: CYANOCOBALAMIN 500 MCG TAB PO SCH (09:00)
== END 2021-08-05 13:27 | disposition home or self-care (01) | DRG 641 ==
LOC: EC 20:32 → 6NMEDSUR 08-03 00:36 → OBSVTOIN 08-04 16:01
PROVIDERS: ADMIT Internal Medicine; ATTEND Internal Medicine
DX: E87.6 Hypokalemia (principal); G37.9 Demyelinating disease of central nervous system, unspecified; E24.9 Cushing's syndrome, unspecified; F25.9 Schizoaffective disorder, unspecified; E83.42 Hypomagnesemia; E03.9 Hypothyroidism, unspecified; E11.65 Type 2 diabetes mellitus with hyperglycemia; E66.9 Obesity, unspecified; E78.5 Hyperlipidemia, unspecified; F41.0 Panic disorder [episodic paroxysmal anxiety]; F43.10 Post-traumatic stress disorder, unspecified; F32.A Depression, unspecified; H93.19 Tinnitus, unspecified ear; I10 Essential (primary) hypertension; G43.909 Migraine, unspecified, not intractable, without status migrainosus; K21.9 Gastro-esophageal reflux disease without esophagitis; K52.9 Noninfective gastroenteritis and colitis, unspecified; M50.322 Other cervical disc degeneration at C5-C6 level; Z68.39 Body mass index [BMI] 39.0-39.9, adult; Z91.81 History of falling; Z79.4 Long term (current) use of insulin; Z79.82 Long term (current) use of aspirin; Z79.84 Long term (current) use of oral hypoglycemic drugs; Z79.890 Hormone replacement therapy; Z79.899 Other long term (current) drug therapy; Z82.49 Family history of ischemic heart disease and other diseases of the circulatory system; Z83.3 Family history of diabetes mellitus; Z87.440 Personal history of urinary (tract) infections; Z90.710 Acquired absence of both cervix and uterus; Z98.890 Other specified postprocedural states; Z90.89 Acquired absence of other organs; Z96.653 Presence of artificial knee joint, bilateral; Z88.1 Allergy status to other antibiotic agents; Z88.5 Allergy status to narcotic agent; Z88.8 Allergy status to other drugs, medicaments and biological substances; I07.1 Rheumatic tricuspid insufficiency
CPT/HCPCS: 36415; 70450; 70551; 70552; 71045; 72125; 74018; 80048; 80053; 81003; 82150; 83690; 83735; 85025; 85027; 93306; 96361; 96374; 96375; 99285

== ENCOUNTER → 2021-08-06 | Outpatient (CLI) | payer OTHER ==
--- NOTE | 2021-08-07 07:00 | US ---
EXAMINATION TYPE: US carotid duplex BILAT DATE OF EXAM: 08/06/2021 COMPARISON: NONE CLINICAL HISTORY: R42 DIZZINESS, E11.65 TYPE 2 DM,I10 HTN. dizziness, HTN EXAM MEASUREMENTS: RIGHT: Peak Systolic Velocity (PSV) cm/sec ----- Right CCA: 72.1 ----- Right ICA: 70.3 ----- Right ECA: 71.2 ICA/CCA ratio: 1.0 RIGHT: End Diastole cm/sec ----- Right CCA: 21.5 ----- Right ICA: 25.0 ----- Right ECA: 13.6 LEFT: Peak Systolic Velocity (PSV) cm/sec ----- Left CCA: 79.0 ----- Left ICA: 116.0 ----- Left ECA: 99.6 ICA/CCA ratio: 1.5 LEFT: End Diastole cm/sec ----- Left CCA: 25.8 ----- Left ICA: 51.2 ----- Left ECA: 10.6 VERTEBRALS (direction of flow): Right Vertebral: Antegrade Left Vertebral: Antegrade Minimal plaque bilateral bifurcations. no evidence of significant stenosis IMPRESSION: 1. Atherosclerotic plaque with no significant hemodynamic stenosis is identified Criteria for Assigning % of Stenosis / Diameter reduction (Estimation based on the indirect measurements of the internal carotid artery velocities (ICA PSV). 1. Normal (no stenosis)=ICA PSV < 125 cm/s: ratio < 2.0: ICA EDV<40 cm/s. 2. Less than 50% stenosis=ICA PSV < 125 cm/s: ratio < 2.0: ICA EDV<40 cm/s. 3. 50 to 69% stenosis=ICA PSV of 125 to 230 cm/s: ration 2.0 ? 4.0: ICA EDV 40-100 cm/s. 4. Greater than 70% stenosis to near occlusion= ICA PSV > 230 cm/s: ratio > 4.0: ICA EDV > 100 cm/s. 5. Near occlusion= ICA PSV velocities may be low or undetectable: variable ratio and ICA EDV. 6. Total occlusion=unable to detect flow.
--- NOTE | 2021-08-07 07:02 | US ---
EXAMINATION TYPE: US thyroid st tissue head/neck DATE OF EXAM: 08/06/2021 COMPARISON: NONE CLINICAL HISTORY: E03.9 HYPOTHYROIDISM. hypothyroidism GLAND SIZE: Right Lobe: 5.1 x 1.3 x 1.7 cm Overall Parenchyma: heterogenous Left Lobe: 3.9 x 1.5 x 1.5 cm Overall Parenchyma: heterogeneous Isthmus Thickness: 0.3 cm NODULES RIGHT: # of nodules measured on right: 0 LEFT: # of nodules measured on left: 0 ISTHMUS: # of nodules measured in the isthmus: 0 Bilateral neck scanned, no evidence of abnormal lymphadenopathy. IMPRESSION: Thyromegaly correlate for thyroiditis 2017 ACR TI-RADS LEVEL: TR-RADS 1 - BENIGN: No FNA *Highest TI-RADS level nodule reported
== END | disposition home or self-care (01) ==
LOC: RADUSWWP 15:05
PROVIDERS: ATTEND Family Medicine
DX: E01.0 Iodine-deficiency related diffuse (endemic) goiter (principal); I65.23 Occlusion and stenosis of bilateral carotid arteries
CPT/HCPCS: 76536; 93880

== ENCOUNTER 2021-08-13 11:05 | Observation (INO) | payer OTHER ==
[2021-08-13 12:49] LABS: Glucose,Whole Blood 112 mg/dL (75-99)
--- NOTE | 2021-08-13 13:29 | ED ---
General Adult HPI - General Chief complaint: Dizziness Stated complaint: weakness, headache Time Seen by Provider: 08/13/21 12:42 Source: patient, family Mode of arrival: ambulatory Limitations: no limitations - History of Present Illness Initial comments: Dictation was produced using nivio dictation software. please excuse any grammatical, word or spelling errors. Chief Complaint: 51-year-old female recently admitted and discharged from the hospital presents to the ER for dizziness and syncope History of Present Illness: Patient is a 51-year-old female she has past medical history of diabetes, GERD, dyslipidemia and thyroid disease. She states she is here in emergency department today for dizziness and syncope. States she had 2 syncopal episodes just prior to coming to the ER. Patient was just admitted to the hospital 10 days ago. She was in the hospital for approximately 4 days. She had the same complaint of dizziness and vertigo. extensive workup performed. She had a MRI and a neurology consultation. Patient was discharged with instructions to follow up with specialist. According to neurology documentation is concern of inner ear pathology causing dizziness and vertigo. Patient also had echocardiogram performed 9 days ago showing no processes. Patient denies any history of cardiac disease. She had a carotid Doppler showing no significant hemodynamic stenosis The ROS documented in this emergency department record has been reviewed and confirmed by me. Those systems with pertinent positive or negative responses have been documented in the HPI. All other systems are other negative and/or noncontributory. PHYSICAL EXAM: General Impression: Alert and oriented x3, not in acute distress HEENT: Normocephalic atraumatic, extra-ocular movements intact, pupils equal and reactive to light bilaterally, mucous membranes moist. Cardiovascular: Heart regular rate and rhythm Chest: Able to complete full sentences, no retractions, no tachypnea Abdomen: abdomen soft, non-tender, non-distended, no organomegaly Musculoskeletal: Pulses present and equal in all extremities, no peripheral edema Motor: no focal deficits noted Neurological: CN II-XII grossly intact, no focal motor or sensory deficits noted Skin: Intact with no visualized rashes Psych: Normal affect and mood ED course: 51-year-old Well-appearing female presents to the emergency department for dizziness, vertigo and syncope. She states she had 2 syncopal episodes just prior to coming to the ER. Vital signs upon arrival shows heart rate 112, rest of vital signs within acceptable limits. She had extensive workup just one week ago which yielded no significant issues. Laboratory evaluation obtained. CBC unremarkable. Coag panel is negative. Potassium 3.0. Rest of labs unremarkable. Patient given Reglan. She is given IV potassium. And auditory trial was performed. Patient had difficulty walking even just 50 feet. Patient be admitted for medical observation for symptom control and potassium replacement. Case discussed with sound physician group. EKG interpretation: Ventricular rate 97, sinus rhythm,. 157, QS 89, QTC 429. No RI prolongation, no QTC prolongation, no ST or T-wave changes noted.. Overall, this EKG is unremarkable - Related Data Home Medications Medication Instructions Recorded Confirmed Omeprazole [PriLOSEC] 20 mg PO DAILY 01/12/19 08/13/21 Atorvastatin [Lipitor] 80 mg PO DAILY 11/10/19 08/13/21 Levothyroxine Sodium [Synthroid] 150 mcg PO DAILY 11/10/19 08/13/21 Insulin Glargine,Hum.rec.anlog 80 unit SQ BID 05/14/20 08/13/21 [Lantus Solostar Pen] Empagliflozin [Jardiance] 25 mg PO DAILY 12/11/20 08/13/21 Topiramate [Topamax] 100 mg PO BID 12/11/20 08/13/21 Venlafaxine HCl [Effexor XR] 75 mg PO BID 12/11/20 08/13/21 metFORMIN HCL [Glucophage] 1,000 mg PO BID 12/11/20 08/13/21 Dulaglutide [Trulicity] 0.75 mg SQ WE 04/16/21 08/13/21 Insulin Aspart [NovoLOG Flexpen] 16 units SQ AC-TID 04/16/21 08/13/21 LORazepam [Ativan] 1 mg PO TID 04/16/21 08/13/21 Aspirin EC [Ecotrin Low Dose] 81 mg PO DAILY 07/14/21 08/13/21 Ergocalciferol (Vitamin D2) 1,250 mcg PO Q30D 07/14/21 08/13/21 [Drisdol (50,000 Iu)] oxyCODONE-APAP 10-325MG [Percocet 1 tab PO TID 07/21/21 08/13/21 10-325 mg] Cariprazine HCl [Vraylar] 4.5 mg PO HS 08/03/21 08/13/21 Fenofibrate Nanocrystallized 145 mg PO DAILY 08/03/21 08/13/21 [Fenofibrate] Losartan [Cozaar] 25 mg PO DAILY 08/03/21 08/13/21 Ondansetron Odt [Zofran ODT] 4 mg PO Q8H PRN 08/03/21 08/13/21 Prazosin HCl 2 mg PO HS 08/03/21 08/13/21 cloNIDine HCL [Catapres] 0.1 mg PO DAILY PRN 08/03/21 08/13/21 Dicyclomine [Bentyl] 20 mg PO QID 08/13/21 08/13/21 hydroCHLOROthiazide [Hydrodiuril] 25 mg PO DAILY 08/13/21 08/13/21 Previous Rx's Medication Instructions Recorded Acetaminophen Tab [Tylenol] 650 mg PO Q6HR PRN #30 tab 08/05/21 Cyanocobalamin [Vitamin B-12] 1,000 mcg PO DAILY 30 Days #60 tab 08/05/21 Meclizine [Antivert] 25 mg PO TID #60 tab 08/05/21 Allergies Allergy/AdvReac Type Severity Reaction Status Date / Time bupropion [From Wellbutrin] Allergy Rash/Hives Verified 08/13/21 13:44 cephalexin [From Keflex] Allergy Rash/Hives Verified 08/13/21 13:44 propoxyphene Allergy Rash/Hives Verified 08/13/21 13:44 [From Darvocet-N] Review of Systems ROS Statement: Those systems with pertinent positive or pertinent negative responses have been documented in the HPI. ROS Other: All systems not noted in ROS Statement are negative. Past Medical History Past Medical History: Diabetes Mellitus, GERD/Reflux, Hyperlipidemia, Thyroid Disorder Additional Past Medical History / Comment(s): hx ventral hernia, frequent uti' s,twisted small bowel, HYPOKALEMIA, pancreatitis History of Any Multi-Drug Resistant Organisms: None Reported Past Surgical History: Bowel Resection, Section, Cholecystectomy, Hernia Repair, Hysterectomy, Joint Replacement, Orthopedic Surgery Additional Past Surgical History / Comment(s): bilat knees replaced,. thymus gland removal,. ventral hernia repair w/ mesh. COLONOSCOPY/EGD Past Anesthesia/Blood Transfusion Reactions: No Reported Reaction Additional Past Anesthesia/Blood Transfusion Reaction / Comment(s): no problems with prior blood transfusion in 1994 Past Psychological History: Anxiety, Depression, Panic Disorder, PTSD, S chizoaffective Disorder, Schizophrenia Smoking Status: Never smoker Past Alcohol Use History: None Reported Past Drug Use History: None Reported - Past Family History Mother Family Medical History: Cancer Additional Family Medical History / Comment(s): lung Father Family Medical History: Diabetes Mellitus, Myocardial Infarction (MS) General Exam Limitations: no limitations Course Vital Signs 08/13/21 08/13/21 11:25 14:38 Temperature 98 F Pulse Rate 112 H 112 H Respiratory 18 16 Rate Blood Pressure 127/82 O2 Sat by Pulse 97 97 Oximetry Medical Decision Making - Lab Data Result diagrams: 08/13/21 13:40 08/13/21 13:40 Lab Results 08/13/21 08/13/21 08/13/21 Range/Units 12:47 13:40 13:40 WBC 9.6 (3.8-10.6) k/uL RBC 4.38 (3.80-5.40) m/uL Hgb 13.4 (11.4-16.0) gm/dL Hct 38.8 (34.0-46.0) % MCV 88.5 (80.0-100.0) fL MCH 30.6 (25.0-35.0) pg MCHC 34.6 (31.0-37.0) g/dL RDW 14.6 (11.5-15.5) % Plt Count 361 (150-450) k/uL MPV 8.6 Neutrophils % 59 % Lymphocytes % 33 % Monocytes % 3 % Eosinophils % 4 % Basophils % 1 % Neutrophils # 5.7 (1.3-7.7) k/uL Lymphocytes # 3.1 (1.0-4.8) k/uL Monocytes # 0.3 (0-1.0) k/uL Eosinophils # 0.4 (0-0.7) k/uL Basophils # 0.1 (0-0.2) k/uL PT 10.5 (9.0-12.0) sec INR 1.0 (<1.2) Sodium (137-145) mmol/L Potassium (3.5-5.1) mmol/L Chloride (98-107) mmol/L Carbon Dioxide (22-30) mmol/L Anion Gap mmol/L BUN (7-17) mg/dL Creatinine (0.52-1.04) mg/dL Est GFR (CKD-EPI)AfAm (>60 ml/min/1.73 sqM) Est GFR (CKD-EPI)NonAf (>60 ml/min/1.73 sqM) Glucose (74-99) mg/dL POC Glucose (mg/dL) 112 H (75-99) mg/dL POC Glu Sleep Lab Technologist ID Belval, Mily Calcium (8.4-10.2) mg/dL Magnesium (1.6-2.3) mg/dL Troponin I (0.000-0.034) ng/mL 08/13/21 08/13/21 Range/Units 13:40 13:40 WBC (3.8-10.6) k/uL RBC (3.80-5.40) m/uL Hgb (11.4-16.0) gm/dL Hct (34.0-46.0) % MCV (80.0-100.0) fL MCH (25.0-35.0) pg MCHC (31.0-37.0) g/dL RDW (11.5-15.5) % Plt Count (150-450) k/uL MPV Neutrophils % % Lymphocytes % % Monocytes % % Eosinophils % % Basophils % % Neutrophils # (1.3-7.7) k/uL Lymphocytes # (1.0-4.8) k/uL Monocytes # (0-1.0) k/uL Eosinophils # (0-0.7) k/uL Basophils # (0-0.2) k/uL PT (9.0-12.0) sec INR (<1.2) Sodium 138 (137-145) mmol/L Potassium 3.0 L (3.5-5.1) mmol/L Chloride 104 (98-107) mmol/L Carbon Dioxide 24 (22-30) mmol/L Anion Gap 10 mmol/L BUN 15 (7-17) mg/dL Creatinine 0.63 (0.52-1.04) mg/dL Est GFR (CKD-EPI)AfAm >90 (>60 ml/min/1.73 sqM) Est GFR (CKD-EPI)NonAf >90 (>60 ml/min/1.73 sqM) Glucose 92 (74-99) mg/dL POC Glucose (mg/dL) (75-99) mg/dL POC Glu Sleep Lab Technologist ID Calcium 8.7 (8.4-10.2) mg/dL Magnesium 1.7 (1.6-2.3) mg/dL Troponin I <0.012 (0.000-0.034) ng/mL Disposition Clinical Impression: Hypokalemia, Dizziness Disposition: ADMITTED IP TO THIS HOSP Condition: Fair Referrals: Krystal Meek MD [Primary Care Provider] - 1-2 days
[2021-08-13 13:51] LABS: Basophils # (A) 0.1 k/uL (0-0.2); Basophils % (A) 1 %; Eosinophils # (A) 0.4 k/uL (0-0.7); Eosinophils % (A) 4 %; HCT 38.8 % (34.0-46.0); HGB 13.4 gm/dL (11.4-16.0); Lymphocytes # (A) 3.1 k/uL (1.0-4.8); Lymphocytes % (A) 33 %; MCH 30.6 pg (25.0-35.0); MCHC 34.6 g/dL (31.0-37.0); MCV 88.5 fL (80.0-100.0); Mean Platelet Volume 8.6; Monocytes # (A) 0.3 k/uL (0-1.0); Monocytes % (A) 3 %; Neutrophils # (A) 5.7 k/uL (1.3-7.7); Neutrophils % (A) 59 %; Platelet Count 361 k/uL (150-450); RBC 4.38 m/uL (3.80-5.40); RDW 14.6 % (11.5-15.5); WBC 9.6 k/uL (3.8-10.6)
[2021-08-13 14:00] LABS: Prothrombin Time 10.5 sec (9.0-12.0)
[2021-08-13 14:10] LABS: African American GFR (CKD) >90 (>60 ml/min/1.73 sqM); Anion Gap 10 mmol/L; Blood Urea Nitrogen 15 mg/dL (7-17); Calcium 8.7 mg/dL (8.4-10.2); Carbon Dioxide 24 mmol/L (22-30); Chloride 104 mmol/L (98-107); Glucose 92 mg/dL (74-99); Magnesium 1.7 mg/dL (1.6-2.3); Non-African American GFR(CKD) >90 (>60 ml/min/1.73 sqM); Sodium 138 mmol/L (137-145)
[2021-08-13] MEDS ORDERED: NALOXONE 0.4 MG/ML 1 ML VIAL IV PRN (15:08)
[2021-08-13] MEDS: POTASSIUM CHLORIDE 20 MEQ in WATER FOR INJECTION 1 100ML.BAG IVPB SCH ×2 (15:10→16:52)
[2021-08-13] MEDS ORDERED: METOCLOPRAMIDE 5 MG/ML 2 ML VIAL IVP STA (15:10)
[2021-08-13] MEDS ORDERED: SODIUM CHLORIDE 0.9% 1,000 ML IV SCH (15:15)
[2021-08-13] MEDS ORDERED: ACETAMINOPHEN TAB 325 MG TAB PO PRN (15:56)
[2021-08-13] MEDS ORDERED: cloNIDine HCL 0.1 MG TAB PO PRN (15:56)
--- NOTE | 2021-08-13 16:15 | P.HPIM ---
History of Present Illness H&P Date: 08/13/21 Hospital course: Patient is a very pleasant 51-year-old female with a past medical history of hypertension, type 2 insulin-dependent diabetes mellitus, hypothyroidism, chronic pain, schizophrenia, anxiety, depression, and GERD. She presented to the emergency department with a chief complaint of dizziness/lightheadedness with reports of near syncopal episode. Patient recently underwent hospitalization from 08/02/21 through 08/05/21 in which patient was evaluated for intractable dizziness with reports of syncopal episode. She was evaluated by neurology, cardiology, and hospitalist team. at this time and underwent a CT of brain which was negative for acute intercranial process, an MRI brain which initially showed concerns for demyelinating disease, and MRI with contrast was then performed and negative for acute intercranial process revealing no enh ancing plaque or reports of demyelinating disease. Echocardiogram also completed which was normal revealing an EF of 55-60% with no significant valvular abnormalities. Carotid Dopplers were negative. Orthostatic vitals at that time were also negative. Patient currently reports that since being d ischarged home from the hospital she continues to have intermittent episodes of dizziness/lightheadedness. Patient reports she has been taking meclizine as directed but states continued episodes of dizziness despite use. Patient states she believes she even had 2 syncopal episodes prior to coming into the emergency department while waiting in the waiting room. Patient having any falls to the ground or reported injuries, denies hitting her head, states syncopal episodes have been while sitting and lying in bed. She denies experiencing any changes in her vision, ringing in her ears, changes in hearing, headaches, chest pain, palpitations, shortness of breath, nausea, diaphoresis, or experiencing any numbness/tingling/weakness in her extremities. In the emergency department patient underwent full evaluation. An EKG was completed showing normal sinus rhythm at 97 bpm with no noted T-wave or ST abnormalities. Laboratory findings unremarkable with the exception of mild hypokalemia and hypomagnesemia with potassium of 3.0 and magnesium of 1.7. Patient was admitted to observation und er our services. Review of systems: Pertinent positives and negatives as discussed in HPI, a complete review of systems was performed and all other systems are negative. Physical examination: General: non toxic, no distress, obese, appears older than stated age Derm: warm, dry Head: atraumatic, normocephalic, symmetric Eyes: EOMI, no lid lag, anicteric sclera Mouth: no lip lesion, mucus membranes moist Cardiovascular: S1S2 reg, no murmur, positive posterior tibial pulse bilateral, Lungs: Decreased breath sounds bilateral, no rhonchi, no rales , no accessory muscle use Abdominal: soft, nontender to palpation, no guarding, no appreciable organomegaly Ext: no gross muscle atrophy, no edema, no contractures Neuro: CN II-XI grossly intact, no focal neuro deficits Psych: Alert, oriented, appropriate affect Assessment and plan of care: Intractable Dizziness with syncope -Continue hydration with IV fluids -Orthostatic vitals to be completed. -Prazosin and Bentyl discontinued as adverse reactions of this medication can be syncopal episodes and dizziness. Patient also on Topiramate and Vraylar for treatment of her schizophrenia, this can also cause dizziness but we will continue with use at this time. -Fall precautions -Neuro checks -Increase meclizine to 25 mg 4 times daily. -Continue Ativan 1 mg 3 times daily. -Patient will likely need to follow up outpatient with psychiatry for medication adjustments as continued intractable dizziness with reports of recurrent syncopal episodes may possibly be secondary to medication side effect and she may need adjustments/alternatives to her current medication regimen Hypokalemia -Replace and continue to monitor with repeat a.m. labs. Hypomagnesemia -Replace and continue to monitor with repeat a.m. labs. Hypertension -Hold hydrochlorothiazide as this too can cause dizziness/lightheadedness and we will hydrate patient at this time. Insulin-dependent Diabetes mellitus type II -Resume long-acting insulin, sliding scale insulin, follow blood sugars -Hold trulicity and metformin and patient placed on glycemic protocol with NovoLog sliding scale. Hypothyroidism -Continue daily medication regimen with Synthroid Dyslipidemia -Continue atorvastatin and fenofibrate History of schizophrenia, anxiety, and depression -Continue daily medication regimen with Effexor, Topamax, Vraylar, and Ativan The patient is admitted with an anticipated left than 2 midnight stay for evaluation of intractable dizziness with reports of syncopal episode CODE STATUS: Full code DVT prophylaxis: SCDs Discussed with: Patient and RN Anticipated discharge date: Likely tomorrow morning Anticipated discharge place: Home A total of 40 minutes was spent on the care of this complex patient more than 50% of the time was spent in counseling and care coordination. I reviewed the documentation as provided by the RAMÓN above, who is the original author of this note. I agree with the documented assessment and plan, with the following changes: None Past Medical History Past Medical History: Diabetes Mellitus, GERD/Reflux, Hyperlipidemia, Thyroid D isorder Additional Past Medical History / Comment(s): hx ventral hernia, frequent uti's,twisted small bowel, HYPOKALEMIA, pancreatitis History of Any Multi-Drug Resistant Organisms: None Reported Past Surgical History: Bowel Resection, Section, Cholecystectomy, Hernia Repair, Hysterectomy, Joint Replacement, Orthopedic Surgery Additional Past Surgical History / Comment(s): bilat knees replaced,. thymus gland removal,. ventral hernia repair w/ mesh. COLONOSCOPY/EGD Past Anesthesia/Blood Transfusion Reactions: No Reported Reaction Additional Past Anesthesia/Blood Transfusion Reaction / Comment(s): no problems with prior blood transfusion in 1994 Past Psychological History: Anxiety, Depression, Panic Disorder, PTSD, Schizoaffective Disorder, Schizophrenia Smoking Status: Never smoker Past Alcohol Use History: None Reported Past Drug Use History: None Reported - Past Family History Mother Family Medical History: Cancer Additional Family Medical History / Comment(s): lung Father Family Medical History: Diabetes Mellitus, Myocardial Infarction (ND) Medications and Allergies Home Medications Medication Instructions Recorded Confirmed Type Omeprazole [PriLOSEC] 20 mg PO DAILY 01/12/19 08/13/21 History Atorvastatin [Lipitor] 80 mg PO DAILY 11/10/19 08/13/21 History Levothyroxine Sodium [Synthroid] 150 mcg PO DAILY 11/10/19 08/13/21 History Insulin Glargine,Hum.rec.anlog 80 unit SQ BID 05/14/20 08/13/21 History [Lantus Solostar Pen] Empagliflozin [Jardiance] 25 mg PO DAILY 12/11/20 08/13/21 History Topiramate [Topamax] 100 mg PO BID 12/11/20 08/13/21 History Venlafaxine HCl [Effexor XR] 75 mg PO BID 12/11/20 08/13/21 History metFORMIN HCL [Glucophage] 1,000 mg PO BID 12/11/20 08/13/21 History Dulaglutide [Trulicity] 0.75 mg SQ WE 04/16/21 08/13/21 History Insulin Aspart [NovoLOG Flexpen] 16 units SQ AC-TID 04/16/21 08/13/21 History LORazepam [Ativan] 1 mg PO TID 04/16/21 08/13/21 History Aspirin EC [Ecotrin Low Dose] 81 mg PO DAILY 07/14/21 08/13/21 History Ergocalciferol (Vitamin D2) 1,250 mcg PO Q30D 07/14/21 08/13/21 History [Drisdol (50,000 Iu)] oxyCODONE-APAP 10-325MG [Percocet 1 tab PO TID 07/21/21 08/13/21 History 10-325 mg] Cariprazine HCl [Vraylar] 4.5 mg PO HS 08/03/21 08/13/21 History Fenofibrate Nanocrystallized 145 mg PO DAILY 08/03/21 08/13/21 History [Fenofibrate] Losartan [Cozaar] 25 mg PO DAILY 08/03/21 08/13/21 History Ondansetron Odt [Zofran ODT] 4 mg PO Q8H PRN 08/03/21 08/13/21 History cloNIDine HCL [Catapres] 0.1 mg PO DAILY PRN 08/03/21 08/13/21 History Acetaminophen Tab [Tylenol] 650 mg PO Q6HR PRN #30 tab 08/05/21 08/13/21 Rx Cyanocobalamin [Vitamin B-12] 1,000 mcg PO DAILY 30 Days #60 tab 08/05/21 08/13/21 Rx Meclizine [Antivert] 25 mg PO TID #60 tab 08/05/21 08/13/21 Rx hydroCHLOROthiazide [Hydrodiuril] 25 mg PO DAILY 08/13/21 08/13/21 History Allergies Allergy/AdvReac Type Severity Reaction Status Date / Time bupropion [From Wellbutrin] Allergy Rash/Hives Verified 08/13/21 13:44 cephalexin [From Keflex] Allergy Rash/Hives Verified 08/13/21 13:44 propoxyphene Allergy Rash/Hives Verified 08/13/21 13:44 [From Darvocet-N] Physical Exam Osteopathic Statement: *. No significant issues noted on an osteopathic structural exam other than those noted in the History and Physical/Consult. Vitals: Vital Signs Temp Pulse Resp BP Pulse Ox 08/13/21 14:38 112 H 16 97 08/13/21 11:25 98 F 112 H 18 127/82 97 Intake and Output 08/13/21 08/13/21 08/13/21 06:59 14:59 22:59 Other: Weight 98.883 kg Results CBC & Chem 7: 08/13/21 13:40 08/13/21 13:40 Labs: Abnormal Lab Results - Last 24 Hours (Table) 08/13/21 08/13/21 Range/Units 12:47 13:40 Potassium 3.0 L (3.5-5.1) mmol/L POC Glucose (mg/dL) 112 H (75-99) mg/dL
[2021-08-13] MEDS: oxyCODONE-APAP 10-325MG 1 EACH TAB PO SCH ×2 (16:29→22:18)
[2021-08-13] MEDS: LORazepam 1 MG TAB PO SCH ×2 (16:29→22:18)
[2021-08-13 18:00] LABS: Glucose,Whole Blood 312 mg/dL (75-99)
[2021-08-13] MEDS: MECLIZINE 25 MG TAB PO SCH ×2 (18:04→22:18)
[2021-08-13] MEDS: INSULIN ASPART (NovoLOG) 100 UNIT/ML VIAL SQ SCH ×3 (18:05→20:40)
[2021-08-13 20:05] LABS: Glucose,Whole Blood 287 mg/dL (75-99)
[2021-08-13] MEDS: MAGNESIUM SULFATE-D5W PMX 1 GM in DEXTROSE/WATER 1 100ML.BAG IVPB SCH ×2 (20:31→22:18)
[2021-08-13] MEDS: VENLAFAXINE HCL ER 75 MG CAP PO SCH (20:41)
[2021-08-13] MEDS: INSULIN DETEMIR (LEVEMIR) 100 UNIT/ML SYR SQ SCH (20:41)
[2021-08-13] MEDS: TOPIRAMATE 100 MG TAB PO SCH (20:42)
[2021-08-13] MEDS ORDERED: NON FORMULARY DRUG (Cariprazine Hcl [Vraylar] 4.5 MG Capsule) PO SCH (21:00)
[2021-08-14] MEDS: MECLIZINE 25 MG TAB PO SCH (06:06)
[2021-08-14] MEDS ORDERED: LEVOTHYROXINE 75 MCG TAB PO SCH (06:30)
[2021-08-14] MEDS ORDERED: PANTOPRAZOLE 40 MG TABLET PO SCH (07:30)
[2021-08-14 07:31] LABS: Glucose,Whole Blood 120 mg/dL (75-99)
[2021-08-14] MEDS: INSULIN ASPART (NovoLOG) 100 UNIT/ML VIAL SQ SCH ×2 (08:04→08:13)
[2021-08-14] MEDS: LORazepam 1 MG TAB PO SCH (08:13)
[2021-08-14] MEDS: INSULIN DETEMIR (LEVEMIR) 100 UNIT/ML SYR SQ SCH (08:13)
[2021-08-14] MEDS: oxyCODONE-APAP 10-325MG 1 EACH TAB PO SCH (08:13)
[2021-08-14] MEDS: TOPIRAMATE 100 MG TAB PO SCH (08:15)
[2021-08-14] MEDS: VENLAFAXINE HCL ER 75 MG CAP PO SCH (08:15)
[2021-08-14 08:54] VITALS: BP 105/74; PULSE 88; RESP 17; TEMP 97.8
[2021-08-14] MEDS ORDERED: LOSARTAN 25 MG TAB PO SCH (09:00)
[2021-08-14] MEDS ORDERED: ASPIRIN 81 MG PO SCH (09:00)
[2021-08-14] MEDS ORDERED: FENOFIBRATE 160 MG TAB PO SCH (09:00)
[2021-08-14] MEDS ORDERED: hydroCHLOROthiazide 25 MG TAB PO SCH (09:00)
[2021-08-14] MEDS ORDERED: ATORVASTATIN 80 MG TAB PO SCH (09:00)
[2021-08-14] MEDS ORDERED: CYANOCOBALAMIN 500 MCG TAB PO SCH (09:00)
[2021-08-14] MEDS ORDERED: ERGOCALCIFEROL 1,250 MCG (50,000 IU) CAPSULE PO SCH (09:00)
--- NOTE | 2021-08-14 12:19 | P.DS ---
Providers Date of admission: 08/13/21 15:08 Expected date of discharge: 08/14/21 Attending physician: Hemanth Izquierdo MD Primary care physician: [facility] Course: Discharge Diagnosis: Intractable Dizziness with near syncope, Prazosin and Bentyl discontinued as adverse reactions of this medication can be syncopal episodes and dizziness. Patient also on Topiramate and Vraylar for treatment of her schizophrenia, this can also cause dizziness but we will continue with use at this time and recommended patient follow-up with her psychiatrist for evaluation of her medications and possible medication changes. Hypokalemia, replaced Hypomagnesemia, replaced Hypertension continue daily medication regimen, no changes Insulin-dependent Diabetes mellitus type II, continue home insulin along with 2 with city and metformin. Hypothyroidism, Continue daily medication regimen with Synthroid Dyslipidemia, Continue atorvastatin and fenofibrate History of schizophrenia, anxiety, and depression, Continue daily medication regimen with Effexor, Topamax, Vraylar, and Ativan. Again recommended patient follow-up with psychiatrist for evaluation and possible medication changes sec ondary to persistent dizziness. Hospital Course: Patient is a very pleasant 51-year-old female with a past medical history of hypertension, type 2 insulin-dependent diabetes mellitus, hypothyroidism, chronic pain, schizophrenia, anxiety, depression, and GERD. She presented to the emergency department with a chief complaint of dizziness/lightheadedness with reports of near syncopal episode. Patient recently underwent hospitalization from 08/02/21 through 08/05/21 in which patient was evaluated for intractable dizziness with reports of syncopal episode. She was evaluated by neurology, cardiology, and hospitalist team. at this time and underwent a CT of brain which was negative for acute intercranial process, an MRI brain which initially showed concerns for demyelinating disease, and MRI with contrast was then performed and negative for acute intercranial process revealing no enhancing plaque or reports of demyelinating disease. Echocardiogram also completed which was normal revealing an EF of 55-60% with no significant valvular abnormalities. Carotid Dopplers were negative. Orthostatic vitals at that time were also negative. Patient currently reports that since being discharged home from the hospital she continues to have intermittent episodes of dizziness/lightheadedness. Patient reports she has been taking meclizine as directed but states continued episodes of dizziness despite use. Patient states she believes she even had 2 syncopal episodes prior to coming into the emergency department while waiting in the waiting room. Patient having any falls to the ground or reported injuries, denies hitting her head, states syncopal episodes have been while sitting and lying in bed. She denies experiencing any changes in her vision, ringing in her ears, changes in hearing, headaches, chest pain, palpitations, shortness of breath, nausea, diaphoresis, or experiencing any numbness/tingling/weakness in her extremities. In the emergency department patient underwent full evaluation. An EKG was completed showing normal sinus rhythm at 97 bpm with no noted T-wave or ST abnormalities. Laboratory findings unremarkable with the exception of mild hypokalemia and hypomagnesemia with potassium of 3.0 and magnesium of 1.7. Patient was admitted to observation under our services. Patient underwent overnight observation and received continuous telemetry monitoring throughout the night along with close monitoring of vital signs. Orthostatic vitals assessed multiple times throughout admission and negative for orthostatic hypotension or tachycardia. Patient reports improvement in dizziness/lightheadedness, discussed with patient possibility of discontinuing hydralazine however patient reports that she needs her water pill for her ankle swelling. We will continue with hydralazine at this time as well as patient's daily psychiatric medication regimen. Patient is medically stable at this time for discharge. Vital signs currently unremarkable. Patient instructed she'll need to follow up outpatient with her PCP and psychiatrist as we discussed. Patient also instructed she will need to follow up with ENT and nuclear unit operator as previously instructed by physician upon time of last discharge on 08/05/21. Physical examination: General: non toxic, no distress, obese, appears older than stated age Derm: warm, dry Head: atraumatic, normocephalic, symmetric Eyes: EOMI, no lid lag, anicteric sclera Mouth: no lip lesion, mucus membranes moist Cardiovascular: S1S2 reg, no murmur, positive posterior tibial pulse bilateral, Lungs: Decreased breath sounds bilateral, no rhonchi, no rales , no accessory muscle use Abdominal: soft, nontender to palpation, no guarding, no appreciable organomegaly Ext: no gross muscle atrophy, no edema, no contractures Neuro: CN II-XI grossly intact, no focal neuro deficits Psych: Alert, oriented, appropriate affect A total of 39 minutes of time were spent preparing this complex discharge summary. Cruz Scott NP rendered care for this patient independently, reviewed the findings and plan as documented in the note above. I did not physically speak with or examine the patient on this date. Patient Condition at Discharge: Stable Plan - Discharge Summary Discharge Rx Participant: No New Discharge Prescriptions: New Meclizine [Antivert] 25 mg PO QID 30 Days #120 tab Continue Omeprazole [PriLOSEC] 20 mg PO DAILY Atorvastatin [Lipitor] 80 mg PO DAILY Levothyroxine Sodium [Synthroid] 150 mcg PO DAILY Insulin Glargine,Hum.rec.anlog [Lantus Solostar Pen] 80 unit SQ BID Venlafaxine HCl [Effexor XR] 75 mg PO BID Topiramate [Topamax] 100 mg PO BID metFORMIN HCL [Glucophage] 1,000 mg PO BID Empagliflozin [Jardiance] 25 mg PO DAILY Aspirin EC [Ecotrin Low Dose] 81 mg PO DAILY oxyCODONE-APAP 10-325MG [Percocet 10-325 mg] 1 tab PO TID Cariprazine HCl [Vraylar] 4.5 mg PO HS Losartan [Cozaar] 25 mg PO DAILY Acetaminophen Tab [Tylenol] 650 mg PO Q6HR PRN #30 tab PRN Reason: Mild Pain Or Fever > 100.5 hydroCHLOROthiazide [Hydrodiuril] 25 mg PO DAILY LORazepam [Ativan] 1 mg PO TID Insulin Aspart [NovoLOG Flexpen] 16 units SQ AC-TID Dulaglutide [Trulicity] 0.75 mg SQ WE Ergocalciferol (Vitamin D2) [Drisdol (50,000 Iu)] 1,250 mcg PO Q30D cloNIDine HCL [Catapres] 0.1 mg PO DAILY PRN PRN Reason: Anxiety Fenofibrate Nanocrystallized [Fenofibrate] 145 mg PO DAILY Ondansetron Odt [Zofran ODT] 4 mg PO Q8H PRN PRN Reason: Nausea Cyanocobalamin [Vitamin B-12] 1,000 mcg PO DAILY 30 Days #60 tab Discontinued Dicyclomine [Bentyl] 20 mg PO QID Prazosin HCl 2 mg PO HS Meclizine [Antivert] 25 mg PO TID #60 tab Discharge Medication List Omeprazole [PriLOSEC] 20 mg PO DAILY 01/12/19 [History] Atorvastatin [Lipitor] 80 mg PO DAILY 11/10/19 [History] Levothyroxine Sodium [Synthroid] 150 mcg PO DAILY 11/10/19 [History] Insulin Glargine,Hum.rec.anlog [Lantus Solostar Pen] 80 unit SQ BID 05/14/20 [History] Empagliflozin [Jardiance] 25 mg PO DAILY 12/11/20 [History] Topiramate [Topamax] 100 mg PO BID 12/11/20 [History] Venlafaxine HCl [Effexor XR] 75 mg PO BID 12/11/20 [History] metFORMIN HCL [Glucophage] 1,000 mg PO BID 12/11/20 [History] Dulaglutide [Trulicity] 0.75 mg SQ WE 04/16/21 [History] Insulin Aspart [NovoLOG Flexpen] 16 units SQ AC-TID 04/16/21 [History] LORazepam [Ativan] 1 mg PO TID 04/16/21 [History] Aspirin EC [Ecotrin Low Dose] 81 mg PO DAILY 07/14/21 [History] Ergocalciferol (Vitamin D2) [Drisdol (50,000 Iu)] 1,250 mcg PO Q30D 07/14/21 [History] oxyCODONE-APAP 10-325MG [Percocet 10-325 mg] 1 tab PO TID 07/21/21 [History] Cariprazine HCl [Vraylar] 4.5 mg PO HS 08/03/21 [History] Fenofibrate Nanocrystallized [Fenofibrate] 145 mg PO DAILY 08/03/21 [History] Losartan [Cozaar] 25 mg PO DAILY 08/03/21 [History] Ondansetron Odt [Zofran ODT] 4 mg PO Q8H PRN 08/03/21 [History] cloNIDine HCL [Catapres] 0.1 mg PO DAILY PRN 08/03/21 [History] Acetaminophen Tab [Tylenol] 650 mg PO Q6HR PRN #30 tab 08/05/21 [Rx] Cyanocobalamin [Vitamin B-12] 1,000 mcg PO DAILY 30 Days #60 tab 08/05/21 [Rx] hydroCHLOROthiazide [Hydrodiuril] 25 mg PO DAILY 08/13/21 [History] Meclizine [Antivert] 25 mg PO QID 30 Days #120 tab 08/14/21 [Rx] Follow up Appointment(s)/Referral(s): Krystal Meek MD [Primary Care Provider] - 1-2 days Patient Instructions/Handouts: Hypokalemia (DC) Activity/Diet/Wound Care/Special Instructions: Activity: As tolerated. Take breaks as needed. Diet: Heart healthy and carb consistent diet. Avoid salts, or foods with hidden salts such as canned or boxed foods and frozen dinners. Extra salt makes your heart work harder and traps the fluid in your body for longer. Special Instructions: Take all of your medications as directed and remember to keep all of your doctor's appointments and follow-up as needed. As we discussed, it is important for you to follow up with her psychiatrist for possible medication changes. Many of your antipsychotic medications as a side effect of dizziness and syncope. We have discontinued prazosin and dicyclomine, please do not take these medications any longer. These to also have side effects of dizziness and syncope. Again remember to rise slowly from lying to sitting positions and from sitting to standing positions. Thank you for allowing us to participate in your care, it was truly a pleasure having you for our patient!!! Discharge Disposition: HOME SELF-CARE
== END 2021-08-14 11:30 | disposition home or self-care (01) ==
LOC: EC 11:05 → 6NMEDSUR 15:08
PROVIDERS: ADMIT Internal Medicine; ATTEND Internal Medicine
DX: R42 Dizziness and giddiness (principal); R55 Syncope and collapse; F20.9 Schizophrenia, unspecified; E87.6 Hypokalemia; E83.42 Hypomagnesemia; I10 Essential (primary) hypertension; E11.9 Type 2 diabetes mellitus without complications; E03.9 Hypothyroidism, unspecified; E78.5 Hyperlipidemia, unspecified; K21.9 Gastro-esophageal reflux disease without esophagitis; G89.29 Other chronic pain; F43.10 Post-traumatic stress disorder, unspecified; F41.0 Panic disorder [episodic paroxysmal anxiety]; F41.9 Anxiety disorder, unspecified; F32.A Depression, unspecified; R53.1 Weakness; R51.9 Headache, unspecified; E66.9 Obesity, unspecified; Z68.39 Body mass index [BMI] 39.0-39.9, adult; Z87.440 Personal history of urinary (tract) infections; Z90.49 Acquired absence of other specified parts of digestive tract; Z90.710 Acquired absence of both cervix and uterus; Z71.9 Counseling, unspecified; Z79.899 Other long term (current) drug therapy; Z79.890 Hormone replacement therapy; Z79.84 Long term (current) use of oral hypoglycemic drugs; Z79.4 Long term (current) use of insulin; Z79.82 Long term (current) use of aspirin; Z79.891 Long term (current) use of opiate analgesic; Z88.8 Allergy status to other drugs, medicaments and biological substances; Z88.1 Allergy status to other antibiotic agents; Z88.5 Allergy status to narcotic agent; Z83.3 Family history of diabetes mellitus; Z82.49 Family history of ischemic heart disease and other diseases of the circulatory system; Z80.1 Family history of malignant neoplasm of trachea, bronchus and lung
CPT/HCPCS: 96366 ×3; 96367; 96361; 96365; 96375; 99285; 36415; 93005; 80048; 83735; 84484; 85025; 85610; G0378 ×2; J2765; J3480; J3475

== ENCOUNTER → 2021-08-13 | Outpatient (CLI) | payer OTHER ==
[2021-08-13 11:17] LABS: Basophils # (A) 0.1 k/uL (0-0.2); Basophils % (A) 1 %; Eosinophils # (A) 0.3 k/uL (0-0.7); Eosinophils % (A) 3 %; HCT 42.3 % (34.0-46.0); HGB 13.9 gm/dL (11.4-16.0); Lymphocytes # (A) 2.9 k/uL (1.0-4.8); Lymphocytes % (A) 31 %; MCH 29.5 pg (25.0-35.0); MCHC 32.7 g/dL (31.0-37.0); Mean Platelet Volume 8.5; Monocytes # (A) 0.3 k/uL (0-1.0); Monocytes % (A) 4 %; Neutrophils # (A) 5.7 k/uL (1.3-7.7); Neutrophils % (A) 61 %; Platelet Count 365 k/uL (150-450); RDW 14.6 % (11.5-15.5); WBC 9.4 k/uL (3.8-10.6)
[2021-08-13 11:39] LABS: ALT 19 U/L (4-34); AST 36 U/L (14-36); African American GFR (CKD) >90 (>60 ml/min/1.73 sqM); Albumin 4.2 g/dL (3.5-5.0); Albumin/Globulin Ratio 1.4; Alkaline Phosphatase 128 U/L (38-126); Anion Gap 11 mmol/L; Blood Urea Nitrogen 15 mg/dL (7-17); Calcium 9.2 mg/dL (8.4-10.2); Carbon Dioxide 27 mmol/L (22-30); Chloride 101 mmol/L (98-107); Glucose 163 mg/dL (74-99); Non-African American GFR(CKD) >90 (>60 ml/min/1.73 sqM); Potassium 3.1 mmol/L (3.5-5.1); Sodium 139 mmol/L (137-145); Total Bilirubin 0.4 mg/dL (0.2-1.3); Total Protein 7.2 g/dL (6.3-8.2)
== END | disposition home or self-care (01) ==
LOC: LABWHC1 10:16
PROVIDERS: ATTEND Family Medicine
DX: Z09 Encounter for follow-up examination after completed treatment for conditions other than malignant neoplasm (principal); R55 Syncope and collapse; E11.65 Type 2 diabetes mellitus with hyperglycemia; E87.6 Hypokalemia; E03.9 Hypothyroidism, unspecified
CPT/HCPCS: 36415; 80053; 82024; 83835; 85025

== ENCOUNTER 2021-08-25 20:20 | Emergency (ER) | payer OTHER ==
[2021-08-25] MEDS ORDERED: SODIUM CHLORIDE 0.9% 1,000 ML IV STA (20:31)
[2021-08-25] MEDS ORDERED: ONDANSETRON 4 MG/2 ML VIAL IVP STA (20:31)
[2021-08-25] MEDS ORDERED: FAMOTIDINE 20 MG/2 ML VIAL IV STA (20:32)
[2021-08-25] MEDS ORDERED: HYDROmorphone 1 MG/ML 1 ML SYRINGE IVP STA (20:32)
--- NOTE | 2021-08-25 20:34 | ED ---
General Adult HPI - General Chief complaint: Recheck/Abnormal Lab/Rx Stated complaint: hyperglycemia Time Seen by Provider: 08/25/21 20:25 Source: patient, EMS, RN notes reviewed Mode of arrival: EMS Limitations: no limitations - History of Present Illness Initial comments: Patient is a pleasant 51-year-old female presenting to the emergency department with abdominal discomfort. Symptoms have been present approximately one year. Patient does have nausea and mild decreased appetite. No vomiting. patient diarrhea. Discomfort is diffuse. Patient does have history of previous bowel obstruction with surgery with Dr. Geronimo. Patient's blood sugars have been running high, sometimes over 400. Patient did have a increased abdominal discomfort today with syncopal episode. No injury. - Related Data Home Medications Medication Instructions Recorded Confirmed Omeprazole [PriLOSEC] 20 mg PO DAILY 01/12/19 08/13/21 Atorvastatin [Lipitor] 80 mg PO DAILY 11/10/19 08/13/21 Levothyroxine Sodium [Synthroid] 150 mcg PO DAILY 11/10/19 08/13/21 Insulin Glargine,Hum.rec.anlog 80 unit SQ BID 05/14/20 08/13/21 [Lantus Solostar Pen] Empagliflozin [Jardiance] 25 mg PO DAILY 12/11/20 08/13/21 Topiramate [Topamax] 100 mg PO BID 12/11/20 08/13/21 Venlafaxine HCl [Effexor XR] 75 mg PO BID 12/11/20 08/13/21 metFORMIN HCL [Glucophage] 1,000 mg PO BID 12/11/20 08/13/21 Dulaglutide [Trulicity] 0.75 mg SQ WE 04/16/21 08/13/21 Insulin Aspart [NovoLOG Flexpen] 16 units SQ AC-TID 04/16/21 08/13/21 LORazepam [Ativan] 1 mg PO TID 04/16/21 08/13/21 Aspirin EC [Ecotrin Low Dose] 81 mg PO DAILY 07/14/21 08/13/21 Ergocalciferol (Vitamin D2) 1,250 mcg PO Q30D 07/14/21 08/13/21 [Drisdol (50,000 Iu)] oxyCODONE-APAP 10-325MG [Percocet 1 tab PO TID 07/21/21 08/13/21 10-325 mg] Cariprazine HCl [Vraylar] 4.5 mg PO HS 08/03/21 08/13/21 Fenofibrate Nanocrystallized 145 mg PO DAILY 08/03/21 08/13/21 [Fenofibrate] Losartan [Cozaar] 25 mg PO DAILY 08/03/21 08/13/21 Ondansetron Odt [Zofran ODT] 4 mg PO Q8H PRN 08/03/21 08/13/21 cloNIDine HCL [Catapres] 0.1 mg PO DAILY PRN 08/03/21 08/13/21 hydroCHLOROthiazide [Hydrodiuril] 25 mg PO DAILY 08/13/21 08/13/21 Previous Rx's Medication Instructions Recorded Acetaminophen Tab [Tylenol] 650 mg PO Q6HR PRN #30 tab 08/05/21 Cyanocobalamin [Vitamin B-12] 1,000 mcg PO DAILY 30 Days #60 tab 08/05/21 Meclizine [Antivert] 25 mg PO QID 30 Days #120 tab 08/14/21 Allergies Allergy/AdvReac Type Severity Reaction Status Date / Time bupropion [From Wellbutrin] Allergy Rash/Hives Verified 08/25/21 20:32 cephalexin [From Keflex] Allergy Rash/Hives Verified 08/25/21 20:32 propoxyphene Allergy Rash/Hives Verified 08/25/21 20:32 [From Darvocet-N] Review of Systems ROS Statement: Those systems with pertinent positive or pertinent negative responses have been documented in the HPI. ROS Other: All systems not noted in ROS Statement are negative. Constitutional: Denies: fever Eyes: Denies: eye pain ENT: Denies: ear pain Respiratory: Denies: cough, dyspnea Cardiovascular: Denies: chest pain Endocrine: Denies: fatigue Gastrointestinal: Reports: abdominal pain, nausea. Denies: vomiting, diarrhea, constipation Genitourinary: Denies: dysuria Musculoskeletal: Denies: back pain Skin: Denies: rash Neurological: Denies: headache, weakness, numbness, paresthesias, confusion Past Medical History Past Medical History: Diabetes Mellitus, GERD/Reflux, Hyperlipidemia, Thyroid Disorder Additional Past Medical History / Comment(s): hx ventral hernia, frequent uti's,twisted small bowel, HYPOKALEMIA, pancreatitis History of Any Multi-Drug Resistant Organisms: None Reported Past Surgical History: Bowel Resection, Section, Cholecystectomy, Hernia Repair, Hysterectomy, Joint Replacement, Orthopedic Surgery Additional Past Surgical History / Comment(s): bilat knees replaced,. thymus gland removal,. ventral hernia repair w/ mesh. COLONOSCOPY/EGD Past Anesthesia/Blood Transfusion Reactions: No Reported Reaction Additional Past Anesthesia/Blood Transfusion Reaction / Comment(s): no problems with prior blood transfusion in 1994 Past Psychological History: Anxiety, Depression, Panic Disorder, PTSD, Schizoaffective Disorder, Schizophrenia Smoking Status: Never smoker Past Alcohol Use History: None Reported Past Drug Use History: None Reported - Past Family History Mother Family Medical History: Cancer Additional Family Medical History / Comment(s): lung Father Family Medical History: Diabetes Mellitus, Myocardial Infarction ([place]) General Exam Limitations: no limitations General appearance: alert, in no apparent distress Head exam: Present: atraumatic, normocephalic Eye exam: Present: normal appearance, PERRL, EOMI ENT exam: Present: normal oropharynx Neck exam: Present: normal inspection. Absent: tenderness Respiratory exam: Present: normal lung sounds bilaterally Cardiovascular Exam: Present: regular rate, normal rhythm, normal heart sounds Expanded Peripheral pulses: 2+: Radial (R), Radial (L), Posterior Tibialis (R), Posterior Tibialis (L) GI/Abdominal exam: Present: soft, tenderness (Moderate diffuse tenderness), normal bowel sounds. Absent: distended, guarding, rebound, rigid, pulsatile mass Extremities exam: Present: normal inspection. Absent: pedal edema, calf tenderness Neurological exam: Present: alert, CN II-XII intact. Absent: motor sensory deficit Expanded Neurological exam: Present: protecting the airway Speech: Present: fluid speech Cranial nerves: EOM's Intact: Normal Motor strength exam: RUE: 5, LUE: 5, RLE: 5, LLE: 5 Eye Response: (4) open spontaneously Motor Response: (6) obeys commands Verbal Response: (5) oriented Psychiatric exam: Present: normal affect, normal mood Skin exam: Present: normal color Course Vital Signs 08/25/21 20:22 Temperature 98.3 F Pulse Rate 100 Respiratory 22 Rate Blood Pressure 118/73 O2 Sat by Pulse 97 Oximetry EKG Findings - EKG Comments: EKG Findings:: Sinus rhythm 102, tachycardia. KS 148. QRS 81. QT 356. QTc 415. Normal axis. Normal QRS. No acute ST change. Medical Decision Making - Medical Decision Making Patient reevaluated and resting comfortably in bed. Patient updated on results and need for follow-up. - Lab Data Result diagrams: 08/25/21 20:33 08/25/21 20:33 Lab Results 08/25/21 08/25/21 08/25/21 Range/Units 20:30 20:33 20:33 WBC 9.4 (3.8-10.6) k/uL RBC 4.22 (3.80-5.40) m/uL Hgb 12.7 (11.4-16.0) gm/dL Hct 37.4 (34.0-46.0) % MCV 88.7 (80.0-100.0) fL MCH 30.0 (25.0-35.0) pg MCHC 33.9 (31.0-37.0) g/dL RDW 14.4 (11.5-15.5) % Plt Count 303 (150-450) k/uL MPV 8.5 Neutrophils % 60 % Lymphocytes % 31 % Monocytes % 2 % Eosinophils % 4 % Basophils % 0 % Neutrophils # 5.7 (1.3-7.7) k/uL Lymphocytes # 2.9 (1.0-4.8) k/uL Monocytes # 0.2 (0-1.0) k/uL Eosinophils # 0.4 (0-0.7) k/uL Basophils # 0.0 (0-0.2) k/uL PT 10.3 (9.0-12.0) sec INR 0.9 (<1.2) APTT 22.2 (22.0-30.0) sec Sodium (137-145) mmol/L Potassium (3.5-5.1) mmol/L Chloride (98-107) mmol/L Carbon Dioxide (22-30) mmol/L Anion Gap mmol/L BUN (7-17) mg/dL Creatinine (0.52-1.04) mg/dL Est GFR (CKD-EPI)AfAm (>60 ml/min/1.73 sqM) Est GFR (CKD-EPI)NonAf (>60 ml/min/1.73 sqM) Glucose (74-99) mg/dL POC Glucose (mg/dL) 344 H (75-99) mg/dL POC Glu Waste Recycler ID Alejandro Monte Calcium (8.4-10.2) mg/dL Total Bilirubin (0.2-1.3) mg/dL AST (14-36) U/L ALT (4-34) U/L Alkaline Phosphatase (38-126) U/L Troponin I (0.000-0.034) ng/mL Total Protein (6.3-8.2) g/dL Albumin (3.5-5.0) g/dL Amylase (30-110) U/L Lipase (23-300) U/L Urine Color Urine Appearance (Clear) Urine pH (5.0-8.0) Ur Specific Ferr[place] (1.001-1.035) Urine Protein (Negative) Urine Glucose (UA) (Negative) Urine Ketones (Negative) Urine Blood (Negative) Urine Nitrite (Negative) Urine Bilirubin (Negative) Urine Urobilinogen (<2.0) mg/dL Ur Leukocyte Esterase (Negative) Urine RBC (0-5) /hpf Urine WBC (0-5) /hpf Ur Squamous Epith Cells (0-4) /hpf Urine Bacteria (None) /hpf Acetone, Qual (Negative) 08/25/21 08/25/21 08/25/21 Range/Units 20:33 20:33 20:33 WBC (3.8-10.6) k/uL RBC (3.80-5.40) m/uL Hgb (11.4-16.0) gm/dL Hct (34.0-46.0) % MCV (80.0-100.0) fL MCH (25.0-35.0) pg MCHC (31.0-37.0) g/dL RDW (11.5-15.5) % Plt Count (150-450) k/uL MPV Neutrophils % % Lymphocytes % % Monocytes % % Eosinophils % % Basophils % % Neutrophils # (1.3-7.7) k/uL Lymphocytes # (1.0-4.8) k/uL Monocytes # (0-1.0) k/uL Eosinophils # (0-0.7) k/uL Basophils # (0-0.2) k/uL PT (9.0-12.0) sec INR (<1.2) APTT (22.0-30.0) sec Sodium 133 L (137-145) mmol/L Potassium 3.2 L (3.5-5.1) mmol/L Chloride 100 (98-107) mmol/L Carbon Dioxide 26 (22-30) mmol/L Anion Gap 7 mmol/L BUN 13 (7-17) mg/dL Creatinine 0.59 (0.52-1.04) mg/dL Est GFR (CKD-EPI)AfAm >90 (>60 ml/min/1.73 sqM) Est GFR (CKD-EPI)NonAf >90 (>60 ml/min/1.73 sqM) Glucose 319 H (74-99) mg/dL POC Glucose (mg/dL) (75-99) mg/dL POC Glu Waste Recycler ID Calcium 8.1 L (8.4-10.2) mg/dL Total Bilirubin 0.4 (0.2-1.3) mg/dL AST 28 (14-36) U/L ALT 15 (4-34) U/L Alkaline Phosphatase 176 H (38-126) U/L Troponin I <0.012 (0.000-0.034) ng/mL Total Protein 6.2 L (6.3-8.2) g/dL Albumin 3.4 L (3.5-5.0) g/dL Amylase 40 (30-110) U/L Lipase 220 (23-300) U/L Urine Color Light Yellow Urine Appearance Clear (Clear) Urine pH 5.5 (5.0-8.0) Ur Specific Ferr[place] 1.023 (1.001-1.035) Urine Protein Negative (Negative) Urine Glucose (UA) 4+ H (Negative) Urine Ketones Negative (Negative) Urine Blood Negative (Negative) Urine Nitrite Positive H (Negative) Urine Bilirubin Negative (Negative) Urine Urobilinogen <2.0 (<2.0) mg/dL Ur Leukocyte Esterase Small H (Negative) Urine RBC 1 (0-5) /hpf Urine WBC 18 H (0-5) /hpf Ur Squamous Epith Cells 1 (0-4) /hpf Urine Bacteria Occasional H (None) /hpf Acetone, Qual Negative (Negative) - Radiology Data Radiology results: report reviewed (Computed tomography scan shows constipation) Disposition Clinical Impression: Abdominal pain, Constipation Disposition: HOME SELF-CARE Condition: Stable Instructions (If sedation given, give patient instructions): Abdominal Pain (ED), High Fiber Diet (ED), Constipation (ED), Diabetic Hyperglycemia (ED) Additional Instructions: Please do follow-up with primary care physician in the next day or 2 for recheck. Return for increased pain, vomiting, not passing bowel movements, passing out, uncontrolled blood sugar, worsening or changing symptoms or other concerns. Is patient prescribed a controlled substance at d/c from ED?: No Referrals: Krystal Meek MD [Primary Care Provider] - 1-2 days Time of Disposition: 22:05
[2021-08-25 20:36] LABS: Glucose,Whole Blood 344 mg/dL (75-99)
[2021-08-25 20:59] LABS: Basophils % (A) 0 %; Eosinophils # (A) 0.4 k/uL (0-0.7); Eosinophils % (A) 4 %; HCT 37.4 % (34.0-46.0); HGB 12.7 gm/dL (11.4-16.0); Lymphocytes # (A) 2.9 k/uL (1.0-4.8); Lymphocytes % (A) 31 %; MCHC 33.9 g/dL (31.0-37.0); MCV 88.7 fL (80.0-100.0); Mean Platelet Volume 8.5; Monocytes # (A) 0.2 k/uL (0-1.0); Monocytes % (A) 2 %; Neutrophils # (A) 5.7 k/uL (1.3-7.7); Neutrophils % (A) 60 %; Platelet Count 303 k/uL (150-450); RBC 4.22 m/uL (3.80-5.40); RDW 14.4 % (11.5-15.5); WBC 9.4 k/uL (3.8-10.6)
[2021-08-25 21:10] LABS: INR 0.9 (<1.2); Partial Thromboplastin Time 22.2 sec (22.0-30.0); Prothrombin Time 10.3 sec (9.0-12.0)
[2021-08-25 21:13] LABS: ALT 15 U/L (4-34); AST 28 U/L (14-36); African American GFR (CKD) >90 (>60 ml/min/1.73 sqM); Albumin 3.4 g/dL (3.5-5.0); Alkaline Phosphatase 176 U/L (38-126); Amylase 40 U/L (30-110); Anion Gap 7 mmol/L; Blood Urea Nitrogen 13 mg/dL (7-17); Calcium 8.1 mg/dL (8.4-10.2); Carbon Dioxide 26 mmol/L (22-30); Chloride 100 mmol/L (98-107); Glucose 319 mg/dL (74-99); Lipase 220 U/L (23-300); Non-African American GFR(CKD) >90 (>60 ml/min/1.73 sqM); Potassium 3.2 mmol/L (3.5-5.1); Sodium 133 mmol/L (137-145); Total Bilirubin 0.4 mg/dL (0.2-1.3); Total Protein 6.2 g/dL (6.3-8.2)
[2021-08-25 21:15] LABS: Appearance,Urine Clear (Clear); Bacteria,Urine Occasional /hpf; Bilirubin,Urine Negative (Negative); Blood,Urine Negative (Negative); Color,Urine Light Yellow; Glucose,Urine (UA) 4+ (Negative); Ketones,Urine Negative (Negative); Leukocyte Esterase,Urine Small (Negative); Nitrite,Urine Positive (Negative); PH, Urine 5.5 (5.0-8.0); Protein,Urine Negative (Negative); RBC,Urine 1 /hpf (0-5); Specific Gravity,Urine 1.023 (1.001-1.035); Squamous Epithelial Cell,Urine 1 /hpf (0-4); Urobilinogen,Urine <2.0 mg/dL (<2.0); WBC,Urine 18 /hpf (0-5)
--- NOTE | 2021-08-25 21:58 | CT ---
EXAMINATION TYPE: CT abdomen pelvis w con DATE OF EXAM: 08/25/2021 COMPARISON: 07/14/2021 HISTORY: ABD PAIN CT DLP: 2540 mGycm Automated exposure control for dose reduction was used. CONTRAST: Performed with IV Contrast, patient injected with 100 mL of Isovue 300. Images obtained from the diaphragm to the floor of the pelvis with IV contrast. The lung bases are clear. There is no pleural effusion. Heart size is normal. No pericardial effusion . Liver spleen stomach and pancreas appear intact. There are clips from cholecystectomy. The bile arturo ts are not dilated. There is no adrenal mass. Kidneys show satisfactory contrast opacification. There is no hydronephrosi s. Bladder distends smoothly. There is no inguinal hernia. No free fluid in the pelvis. No evidence o f a pelvic mass. There are surgical clips in the pelvis on the left side. There is hysterectomy. Lumb ar spine is intact. No compression fracture. Bony pelvis is intact. The hip joints are intact. There is moderate retained fecal material throughout the large bowel. Appendix not clearly seen. No s ign of thickened appendix. No mesenteric edema. There is no ascites or free air. IMPRESSION: There is constipation. This appears increased compared to old exam. Otherwise negative CT scan abdome n and pelvis.
[2021-08-25] MEDS ORDERED: INSULIN REGULAR 100 UNIT/ML VIAL (IV) IV ONE (22:03)
[2021-08-25] MEDS ORDERED: POTASSIUM CHLORIDE ER 20 MEQ TAB.ER PO STA (22:03)
[2021-08-25] MEDS ORDERED: LACTULOSE 20 GM/30 ML CUP PO ONE (22:03)
[2021-08-25 22:05] LABS: Glucose,Whole Blood 274 mg/dL (75-99)
[2021-08-25 22:06] VITALS: BP 117/76; PULSE 97; RESP 20; TEMP 98
== END 2021-08-25 22:22 | disposition home or self-care (01) ==
LOC: EC 20:20
DX: K59.00 Constipation, unspecified (principal); K21.9 Gastro-esophageal reflux disease without esophagitis; Z79.1 Long term (current) use of non-steroidal anti-inflammatories (NSAID); Z84.1 Family history of disorders of kidney and ureter; Z88.5 Allergy status to narcotic agent; Z88.1 Allergy status to other antibiotic agents
CPT/HCPCS: 36415; 93005; 80053; 82150; 82009; 83690; 84484; 85025; 85610; 85730; 81001; 87086; 74177; 99285; 96375; 96374; 96361; J2405; J1170; Q9967

== ENCOUNTER → 2021-08-27 | Outpatient (CLI) | payer OTHER ==
[2021-08-28 01:56] LABS: ALT 15 U/L (8-44); AST 13 U/L (13-35); African American GFR (CKD) 117.1 (60.0-200.0); Albumin 4.2 g/dL (3.8-4.9); Albumin/Globulin Ratio 1.68 (1.60-3.17); Alkaline Phosphatase 234 U/L (41-126); BUN/Creat Ratio 16.43 Ratio (12.00-20.00); Blood Urea Nitrogen 11.5 mg/dL (9.0-27.0); Calcium 9.7 mg/dL (8.7-10.3); Carbon Dioxide 26.6 mmol/L (20.0-27.5); Chloride 97 mmol/L (96-109); Globulin 2.5 g/dL (1.6-3.3); Glucose 450 mg/dL (70-110); Potassium 3.7 mmol/L (3.5-5.5); Sodium 139 mmol/L (135-145); Total Bilirubin <0.15 mg/dL (0.30-1.20); Total Protein 6.7 g/dL (6.2-8.2)
== END | disposition home or self-care (01) ==
LOC: LABWHC1 12:36
PROVIDERS: ATTEND Family Medicine
DX: E11.65 Type 2 diabetes mellitus with hyperglycemia (principal)
CPT/HCPCS: 36415; 80053; 82009

== ENCOUNTER 2021-09-05 21:09 | Emergency (ER) | payer OTHER ==
[2021-09-05 21:28] VITALS: TEMP 98
[2021-09-05 22:12] LABS: Appearance,Urine Clear (Clear); Bilirubin,Urine Negative (Negative); Blood,Urine Negative (Negative); Color,Urine Colorless; Glucose,Urine (UA) 4+ (Negative); Ketones,Urine Negative (Negative); Leukocyte Esterase,Urine Trace (Negative); Nitrite,Urine Negative (Negative); PH, Urine 6.5 (5.0-8.0); Protein,Urine Negative (Negative); Specific Gravity,Urine 1.023 (1.001-1.035); Squamous Epithelial Cell,Urine 2 /hpf (0-4); Urobilinogen,Urine <2.0 mg/dL (<2.0); WBC,Urine <1 /hpf (0-5)
--- NOTE | 2021-09-06 00:50 | ED ---
Abdominal Pain HPI - General Chief Complaint: Abdominal Pain Stated Complaint: Abd pain Time Seen by Provider: 09/06/21 00:50 Source: patient, RN notes reviewed, old records reviewed Mode of arrival: ambulatory Limitations: no limitations - History of Present Illness Initial Comments: This is a 51-year-old female presents today for evaluation of abdominal pain with nausea decreased appetite and decreased intake. She has a long and complicated surgical history and states his abdominal pains going on for months. Worse over the last few days with decreased and diminished appetite and intake. She feels lightheaded and dizzy, feels dehydrated. No fevers. Bowel movements are normal and urinary output is normal MD Complaint: abdominal pain -: month(s) Location: diffuse Radiation: none Migration to: no migration Severity: moderate Severity scale (1-10): 5 Quality: fullness, dull Consistency: intermittent Improves With: nothing Worsens With: nothing Context: recent surgery/procedure (History of multiple surgeries) Associated Symptoms: nausea, diarrhea, constipation, anorexia Treatments Prior to Arrival: other (none) - Related Data Home Medications Medication Instructions Recorded Confirmed Omeprazole [PriLOSEC] 20 mg PO DAILY 01/12/19 10/02/21 Atorvastatin [Lipitor] 80 mg PO DAILY 11/10/19 10/02/21 Levothyroxine Sodium [Synthroid] 150 mcg PO DAILY 11/10/19 10/02/21 Empagliflozin [Jardiance] 25 mg PO DAILY 12/11/20 10/02/21 Topiramate [Topamax] 100 mg PO BID 12/11/20 10/02/21 metFORMIN HCL [Glucophage] 1,000 mg PO BID 12/11/20 10/02/21 Insulin Aspart [NovoLOG Flexpen] 25 units SQ AC-TID 04/16/21 10/02/21 LORazepam [Ativan] 1 mg PO TID PRN 04/16/21 10/02/21 Aspirin EC [Ecotrin Low Dose] 81 mg PO DAILY 07/14/21 10/02/21 Ergocalciferol (Vitamin D2) 1,250 mcg PO Q7D 07/14/21 10/02/21 [Drisdol (50,000 Iu)] oxyCODONE-APAP 10-325MG [Percocet 1 tab PO TID PRN 07/21/21 10/02/21 10-325 mg] Fenofibrate Nanocrystallized 145 mg PO DAILY 08/03/21 10/02/21 [Fenofibrate] Losartan [Cozaar] 25 mg PO DAILY 08/03/21 10/02/21 Ondansetron Odt [Zofran ODT] 4 mg PO Q8H PRN 08/03/21 10/02/21 Cariprazine HCl [Vraylar] 1.5 mg PO BID 08/25/21 10/02/21 Dicyclomine [Bentyl] 20 mg PO QID 08/25/21 10/02/21 Ibuprofen [Motrin] 800 mg PO Q8H PRN 08/25/21 10/02/21 Lurasidone [Latuda] 20 mg PO HS 08/25/21 10/02/21 Meclizine [Antivert] 25 mg PO QID PRN 08/25/21 10/02/21 Dulaglutide [Trulicity] 1.5 mg SQ WE 09/10/21 10/02/21 Nf-Long Acting Insulin, Name Unk, 50 units SQ HS 10/02/21 10/02/21 Will Bring From Home Nf-Long Acting Insulin, Name Unk, 100 units SQ QAM 10/02/21 10/02/21 Will Bring From Home Previous Rx's Medication Instructions Recorded Cyanocobalamin [Vitamin B-12] 1,000 mcg PO DAILY 30 Days #60 tab 08/05/21 Allergies Allergy/AdvReac Type Severity Reaction Status Date / Time bupropion [From Wellbutrin] Allergy Rash/Hives Verified 10/02/21 09:17 cephalexin [From Keflex] Allergy Rash/Hives Verified 10/02/21 09:17 propoxyphene Allergy Rash/Hives Verified 10/02/21 09:17 [From Darvocet-N] sertraline [From Zoloft] Allergy Unknown Verified 10/02/21 09:17 Review of Systems ROS Statement: Those systems with pertinent positive or pertinent negative responses have been documented in the HPI. ROS Other: All systems not noted in ROS Statement are negative. Past Medical History Past Medical History: Diabetes Mellitus, GERD/Reflux, Hyperlipidemia, Thyroid Disorder Additional Past Medical History / Comment(s): hx ventral hernia, frequent uti's,twisted small bowel, HYPOKALEMIA, pancreatitis History of Any Multi-Drug Resistant Organisms: None Reported Past Surgical History: Bowel Resection, Section, Cholecystectomy, Hernia Repair, Hysterectomy, Joint Replacement, Orthopedic Surgery Additional Past Surgical History / Comment(s): bilat knees replaced,. thymus gland removal,. ventral hernia repair w/ mesh. COLONOSCOPY/EGD Past Anesthesia/Blood Transfusion Reactions: No Reported Reaction Additional Past Anesthesia/Blood Transfusion Reaction / Comment(s): no problems with prior blood transfusion in 1994 Past Psychological History: Anxiety, Depression, Panic Disorder, PTSD, Schizoaffective Disorder, Schizophrenia Smoking Status: Never smoker Past Alcohol Use History: None Reported Past Drug Use History: None Reported - Past Family History Mother Family Medical History: Cancer Additional Family Medical History / Comment(s): lung Father Family Medical History: Diabetes Mellitus, Myocardial Infarction ([place]) General Exam Limitations: no limitations General appearance: alert, in no apparent distress Head exam: Present: atraumatic, normocephalic, normal inspection Eye exam: Present: normal appearance, PERRL, EOMI. Absent: scleral icterus, conjunctival injection, periorbital swelling ENT exam: Present: normal exam, mucous membranes moist Neck exam: Present: normal inspection. Absent: tenderness, meningismus, lymphadenopathy Respiratory exam: Present: normal lung sounds bilaterally. Absent: respiratory distress, wheezes, rales, rhonchi, stridor Cardiovascular Exam: Present: normal rhythm, tachycardia, normal heart sounds. Absent: systolic murmur, diastolic murmur, rubs, gallop, clicks GI/Abdominal exam: Present: soft, normal bowel sounds. Absent: distended, ten derness, guarding, rebound, rigid Extremities exam: Present: normal inspection, full ROM, normal capillary refill. Absent: tenderness, pedal edema, joint swelling, calf tenderness Back exam: Present: normal inspection Neurological exam: Present: alert, oriented X3, CN II-XII intact Psychiatric exam: Present: normal affect, normal mood Skin exam: Present: warm, dry, intact, normal color. Absent: rash Course Vital Signs 09/05/21 09/06/21 09/06/21 21:25 01:32 03:30 Temperature 98 F Pulse Rate 118 H 88 91 Respiratory 20 18 18 Rate Blood Pressure 146/87 132/88 115/66 O2 Sat by Pulse 98 96 96 Oximetry - Reevaluation(s) Reevaluation #1: 09/06/21 Medical record is reviewed Patient symptoms are improved here in the emergency department Patient informed results and questions answered Medical Decision Making - Medical Decision Making 51 female to the emergency department for evaluation of abdominal pain. Patient does have dehydration, but no specific acute findings lab values otherwise normal CT abdomen and pelvis is negative patient can be discharged home - Lab Data Result diagrams: 09/06/21 02:16 09/06/21 01:02 Lab Results 09/05/21 09/06/21 09/06/21 Range/Units 21:41 01:02 01:48 WBC (3.8-10.6) k/uL RBC (3.80-5.40) m/uL Hgb (11.4-16.0) gm/dL Hct (34.0-46.0) % MCV (80.0-100.0) fL MCH (25.0-35.0) pg MCHC (31.0-37.0) g/dL RDW (11.5-15.5) % Plt Count (150-450) k/uL MPV Neutrophils % % Lymphocytes % % Monocytes % % Eosinophils % % Basophils % % Neutrophils # (1.3-7.7) k/uL Lymphocytes # (1.0-4.8) k/uL Monocytes # (0-1.0) k/uL Eosinophils # (0-0.7) k/uL Basophils # (0-0.2) k/uL Sodium 138 (137-145) mmol/L Potassium 4.2 (3.5-5.1) mmol/L Chloride 101 (98-107) mmol/L Carbon Dioxide 25 (22-30) mmol/L Anion Gap 12 mmol/L BUN 12 (7-17) mg/dL Creatinine 0.75 (0.52-1.04) mg/dL Est GFR (CKD-EPI)AfAm >90 (>60 ml/min/1.73 sqM) Est GFR (CKD-EPI)NonAf >90 (>60 ml/min/1.73 sqM) Glucose 181 H (74-99) mg/dL Lactic Ac Sepsis Rflx Plasma Lactic Acid Shayan 2.5 H* (0.7-2.0) mmol/L Calcium 9.8 (8.4-10.2) mg/dL Phosphorus 4.8 H (2.5-4.5) mg/dL Magnesium 1.7 (1.6-2.3) mg/dL Total Bilirubin 0.4 (0.2-1.3) mg/dL AST 26 (14-36) U/L ALT 16 (4-34) U/L Alkaline Phosphatase 161 H (38-126) U/L Total Protein 7.4 (6.3-8.2) g/dL Albumin 4.2 (3.5-5.0) g/dL Amylase 49 (30-110) U/L Lipase 300 (23-300) U/L Urine Color Colorless Urine Appearance Clear (Clear) Urine pH 6.5 (5.0-8.0) Ur Specific Ben[place] 1.023 (1.001-1.035) Urine Protein Negative (Negative) Urine Glucose (UA) 4+ H (Negative) Urine Ketones Negative (Negative) Urine Blood Negative (Negative) Urine Nitrite Negative (Negative) Urine Bilirubin Negative (Negative) Urine Urobilinogen <2.0 (<2.0) mg/dL Ur Leukocyte Esterase Trace H (Negative) Urine WBC <1 (0-5) /hpf Ur Squamous Epith Cells 2 (0-4) /hpf 09/06/21 09/06/21 Range/Units 02:16 02:45 WBC 9.1 (3.8-10.6) k/uL RBC 4.45 (3.80-5.40) m/uL Hgb 12.8 (11.4-16.0) gm/dL Hct 39.2 (34.0-46.0) % MCV 88.1 (80.0-100.0) fL MCH 28.8 (25.0-35.0) pg MCHC 32.7 (31.0-37.0) g/dL RDW 13.8 (11.5-15.5) % Plt Count 318 (150-450) k/uL MPV 9.0 Neutrophils % 54 % Lymphocytes % 34 % Monocytes % 4 % Eosinophils % 6 % Basophils % 1 % Neutrophils # 4.8 (1.3-7.7) k/uL Lymphocytes # 3.1 (1.0-4.8) k/uL Monocytes # 0.4 (0-1.0) k/uL Eosinophils # 0.5 (0-0.7) k/uL Basophils # 0.1 (0-0.2) k/uL Sodium (137-145) mmol/L Potassium (3.5-5.1) mmol/L Chloride (98-107) mmol/L Carbon Dioxide (22-30) mmol/L Anion Gap mmol/L BUN (7-17) mg/dL Creatinine (0.52-1.04) mg/dL Est GFR (CKD-EPI)AfAm (>60 ml/min/1.73 sqM) Est GFR (CKD-EPI)NonAf (>60 ml/min/1.73 sqM) Glucose (74-99) mg/dL Lactic Ac Sepsis Rflx Y Plasma Lactic Acid Shayan (0.7-2.0) mmol/L Calcium (8.4-10.2) mg/dL Phosphorus (2.5-4.5) mg/dL Magnesium (1.6-2.3) mg/dL Total Bilirubin (0.2-1.3) mg/dL AST (14-36) U/L ALT (4-34) U/L Alkaline Phosphatase (38-126) U/L Total Protein (6.3-8.2) g/dL Albumin (3.5-5.0) g/dL Amylase (30-110) U/L Lipase (23-300) U/L Urine Color Urine Appearance (Clear) Urine pH (5.0-8.0) Ur Specific Ben[place] (1.001-1.035) Urine Protein (Negative) Urine Glucose (UA) (Negative) Urine Ketones (Negative) Urine Blood (Negative) Urine Nitrite (Negative) Urine Bilirubin (Negative) Urine Urobilinogen (<2.0) mg/dL Ur Leukocyte Esterase (Negative) Urine WBC (0-5) /hpf Ur Squamous Epith Cells (0-4) /hpf - Radiology Data Radiology results: report reviewed (CT head and pelvis is negative for acute disease), image reviewed Disposition Clinical Impression: Dehydration, Abdominal pain Disposition: HOME SELF-CARE Condition: Good Instructions (If sedation given, give patient instructions): Abdominal Pain (ED) Is patient prescribed a controlled substance at d/c from ED?: No Referrals: Krystal Meek MD [Primary Care Provider] - 1-2 days
[2021-09-06 01:59] VITALS: RESP 18
[2021-09-06] MEDS ORDERED: SODIUM CHLORIDE 0.9% 1,000 ML IV STA (02:01)
[2021-09-06] MEDS ORDERED: ONDANSETRON 4 MG/2 ML VIAL IVP PRN (02:01)
[2021-09-06] MEDS ORDERED: HYDROmorphone 1 MG/ML 1 ML SYRINGE IVP PRN (02:01)
[2021-09-06] MEDS ORDERED: HYDROmorphone 1 MG/ML 1 ML SYRINGE IVP STA (02:01)
[2021-09-06] MEDS ORDERED: ONDANSETRON 4 MG/2 ML VIAL IVP STA (02:01)
--- NOTE | 2021-09-06 02:10 | CT ---
EXAMINATION TYPE: CT abdomen pelvis w con DATE OF EXAM: 09/06/2021 COMPARISON: 08/25/2021 HISTORY: pain CT DLP: 2242.5 mGycm Automated exposure control for dose reduction was used. CONTRAST: Performed with IV Contrast, patient injected with 800 mL of Isovue 300. Images obtained from the diaphragm to the floor the pelvis with IV contrast. Lung bases are clear. There is no pleural effusion. Heart size is normal. There is no pericardial eff usion. Liver spleen stomach pancreas appear intact. The bile ducts are not dilated. There are clips from cho lecystectomy. There is no adrenal mass. Kidneys show satisfactory contrast opacification. There is no hydronephrosi s. Ureters are not dilated. There is no retroperitoneal adenopathy. Bladder distends smoothly. There is no inguinal hernia. There is no mesenteric edema. There is no ascites or free air. There is no bowel obstruction. There i s some mild subcutaneous edema over the anterior lower abdominal wall. This could be some postsurgica l changes. There is normal alignment of the lumbar vertebra. Posterior element are intact. There is no compressi on fracture. The bony pelvis is intact. The hip joints are intact. IMPRESSION: There is some mild subcutaneous edema over the anterior and posterior abdomen. No acute abnormality w ithin the abdomen pelvis. There is improvement in the constipation compared to old exam.
[2021-09-06] MEDS ORDERED: SODIUM CHLORIDE 0.9% 1,000 ML IV SCH (02:15)
[2021-09-06 02:18] LABS: ALT 16 U/L (4-34); AST 26 U/L (14-36); African American GFR (CKD) >90 (>60 ml/min/1.73 sqM); Albumin 4.2 g/dL (3.5-5.0); Alkaline Phosphatase 161 U/L (38-126); Amylase 49 U/L (30-110); Anion Gap 12 mmol/L; Blood Urea Nitrogen 12 mg/dL (7-17); Calcium 9.8 mg/dL (8.4-10.2); Carbon Dioxide 25 mmol/L (22-30); Chloride 101 mmol/L (98-107); Glucose 181 mg/dL (74-99); Lipase 300 U/L (23-300); Magnesium 1.7 mg/dL (1.6-2.3); Non-African American GFR(CKD) >90 (>60 ml/min/1.73 sqM); Phosphorus 4.8 mg/dL (2.5-4.5); Potassium 4.2 mmol/L (3.5-5.1); Sodium 138 mmol/L (137-145); Total Bilirubin 0.4 mg/dL (0.2-1.3); Total Protein 7.4 g/dL (6.3-8.2)
[2021-09-06 02:38] LABS: Basophils # (A) 0.1 k/uL (0-0.2); Basophils % (A) 1 %; Eosinophils # (A) 0.5 k/uL (0-0.7); Eosinophils % (A) 6 %; HCT 39.2 % (34.0-46.0); HGB 12.8 gm/dL (11.4-16.0); Lymphocytes # (A) 3.1 k/uL (1.0-4.8); Lymphocytes % (A) 34 %; MCH 28.8 pg (25.0-35.0); MCHC 32.7 g/dL (31.0-37.0); MCV 88.1 fL (80.0-100.0); Monocytes # (A) 0.4 k/uL (0-1.0); Monocytes % (A) 4 %; Neutrophils # (A) 4.8 k/uL (1.3-7.7); Neutrophils % (A) 54 %; Platelet Count 318 k/uL (150-450); RBC 4.45 m/uL (3.80-5.40); RDW 13.8 % (11.5-15.5); WBC 9.1 k/uL (3.8-10.6)
[2021-09-06 03:31] VITALS: BP 115/66; PULSE 91
== END 2021-09-06 03:31 | disposition home or self-care (01) ==
LOC: EC 21:09
DX: E86.0 Dehydration (principal); R10.84 Generalized abdominal pain; E11.9 Type 2 diabetes mellitus without complications; E78.5 Hyperlipidemia, unspecified; F41.9 Anxiety disorder, unspecified; K21.9 Gastro-esophageal reflux disease without esophagitis; F25.9 Schizoaffective disorder, unspecified; F32.A Depression, unspecified; Z79.4 Long term (current) use of insulin; Z79.82 Long term (current) use of aspirin; Z79.84 Long term (current) use of oral hypoglycemic drugs; Z79.890 Hormone replacement therapy; Z79.899 Other long term (current) drug therapy
CPT/HCPCS: 36415; 80053; 82150; 83605; 83690; 83735; 84100; 85025; 81001; 74177; 99284; 96374; 96375; 96361; J2405; J1170; Q9967

== ENCOUNTER → 2021-09-11 | Outpatient (CLI) | payer OTHER | END | disposition home or self-care (01) | LOC: LABWHC1 07:59 | PROVIDERS: ATTEND Family Medicine | DX: E11.65 Type 2 diabetes mellitus with hyperglycemia (principal) | CPT/HCPCS: 36415; 82024; 82533 ==

== ENCOUNTER 2021-09-12 05:45 | Day surgery (SDC) | payer OTHER ==
[2021-09-10 13:57] VITALS: BMI 42.6
[~2021-09-12 05:45] MED LIST changes: +HEPARIN SODIUM,PORCINE/PF 5,000 UNIT/0.5 ML SYRINGE SQ PRN; -HYDROmorphone 0.5 MG/0.5 ML SYRINGE IVP PRN; -LIDOCAINE 1% (10MG/ML) FOR IV START INTRADERMA PRN; +SCOPOLAMINE 1 MG/72 HR PATCH TRANSDERM ONE; -fentaNYL (PF) 50 MCG/ML 2 ML AMP IVP PRN
[2021-09-12] MEDS ORDERED: MELOXICAM 7.5 MG TAB PO PRN (06:18)
[2021-09-12] MEDS ORDERED: GABAPENTIN 300 MG CAP PO PRN (06:18)
[2021-09-12] MEDS ORDERED: ACETAMINOPHEN TAB 500 MG TAB PO PRN (06:18)
--- NOTE | 2021-09-12 06:18 | P.GSHP ---
History of Present Illness H&P Date: 09/12/21 CHIEF COMPLAINT: History of intra-abdominal adhesions HISTORY OF PRESENT ILLNESS: The patient is a 51-year-old female who presents with history of intra-abdominal adhesions from multiple prior surgeries including increasing abdominal pain. She now presents for diagnostic laparoscopy including lysis of adhesions. PAST MEDICAL HISTORY: Please see list. PAST SURGICAL HISTORY: Please see list. MEDICATIONS: Please see list. ALLERGIES: Please see list. SOCIAL HISTORY: No illicit drug use FAMILY HISTORY: No reports of Crohn disease or ulcerative colitis. REVIEW OF ORGAN SYSTEMS: CONSTITUTIONAL: No reports of fevers or chills. GI: Denies any blood in stools or constipation. PHYSICAL EXAM: VITAL SIGNS: Stable GENERAL: Well-developed pleasant and in no acute distress. HEENT: No scleral icterus. Extraocular movements grossly intact. Moist buccal mucosa. NECK: Supple without lymphadenopathy. CHEST: Unlabored respirations. Equal bilateral excursions. CARDIOVASCULAR: Regular rate and rhythm. Distal 2+ pulses. ABDOMEN: Soft, diffuse abdominal tenderness. No peritonitis. MUSCULOSKELETAL: No clubbing, cyanosis, or edema. ASSESSMENT: 1. Diffuse abdominal pain. 2. History of multiple abdominal surgeries. 3. Intra-abdominal adhesions. PLAN: 1. Robotic lysis of adhesions were described in detail including risk of injury to the intestine, need for further surgery, and open technique. 2. DVT prophylaxis. 3. Antibiotic prophylaxis. Past Medical History Past Medical History: Diabetes Mellitus, GERD/Reflux, Hyperlipidemia, Thyroid Disorder Additional Past Medical History / Comment(s): hx ventral hernia, frequent uti's,twisted small bowel, HYPOKALEMIA, pancreatitis History of Any Multi-Drug Resistant Organisms: None Reported Past Surgical History: Bowel Resection, Section, Cholecystectomy, Hernia Repair, Hysterectomy, Joint Replacement, Orthopedic Surgery Additional Past Surgical History / Comment(s): bilat knees replaced,. thymus gland removal,. ventral hernia repair w/ mesh. COLONOSCOPY/EGD Past Anesthesia/Blood Transfusion Reactions: No Reported Reaction Additional Past Anesthesia/Blood Transfusion Reaction / Comment(s): no problems with prior blood transfusion in 1994 Past Psychological History: Anxiety, Depression, Panic Disorder, PTSD, Schizoaffective Disorder, Schizophrenia - Past Family History Mother Family Medical History: Cancer Additional Family Medical History / Comment(s): lung Father Family Medical History: Myocardial Infarction ([place]) Sister(s) Family Medical History: Cancer Additional Family Medical History / Comment(s): breast Medications and Allergies Home Medications Medication Instructions Recorded Confirmed Type Omeprazole [PriLOSEC] 20 mg PO DAILY 01/12/19 09/10/21 History Atorvastatin [Lipitor] 80 mg PO DAILY 11/10/19 09/10/21 History Levothyroxine Sodium [Synthroid] 150 mcg PO DAILY 11/10/19 09/10/21 History Insulin Glargine,Hum.rec.anlog 80 unit SQ BID 05/14/20 09/10/21 History [Lantus Solostar Pen] Empagliflozin [Jardiance] 25 mg PO DAILY 12/11/20 09/10/21 History Topiramate [Topamax] 100 mg PO BID 12/11/20 09/10/21 History metFORMIN HCL [Glucophage] 1,000 mg PO BID 12/11/20 09/10/21 History Insulin Aspart [NovoLOG Flexpen] 25 units SQ AC-TID 04/16/21 09/10/21 History LORazepam [Ativan] 1 mg PO TID PRN 04/16/21 09/10/21 History Aspirin EC [Ecotrin Low Dose] 81 mg PO DAILY 07/14/21 09/10/21 History Ergocalciferol (Vitamin D2) 1,250 mcg PO Q30D 07/14/21 09/10/21 History [Drisdol (50,000 Iu)] oxyCODONE-APAP 10-325MG [Percocet 1 tab PO TID PRN 07/21/21 09/10/21 History 10-325 mg] Fenofibrate Nanocrystallized 145 mg PO DAILY 08/03/21 09/10/21 History [Fenofibrate] Losartan [Cozaar] 25 mg PO DAILY 08/03/21 09/10/21 History Ondansetron Odt [Zofran ODT] 4 mg PO Q8H PRN 08/03/21 09/10/21 History Acetaminophen Tab [Tylenol] 650 mg PO Q6HR PRN #30 tab 08/05/21 09/10/21 Rx Cyanocobalamin [Vitamin B-12] 1,000 mcg PO DAILY 30 Days #60 tab 08/05/21 09/10/21 Rx Cariprazine HCl [Vraylar] 1.5 mg PO BID 08/25/21 09/10/21 History Dicyclomine [Bentyl] 20 mg PO QID 08/25/21 09/10/21 History Ibuprofen [Motrin] 800 mg PO Q8H PRN 08/25/21 09/10/21 History Lurasidone [Latuda] 20 mg PO HS 08/25/21 09/10/21 History Meclizine [Antivert] 25 mg PO QID PRN 08/25/21 09/10/21 History Dulaglutide [Trulicity] 1.5 mg SQ WE 09/10/21 09/10/21 History Allergies Allergy/AdvReac Type Severity Reaction Status Date / Time bupropion [From Wellbutrin] Allergy Rash/Hives Verified 09/10/21 13:39 cephalexin [From Keflex] Allergy Rash/Hives Verified 09/10/21 13:39 propoxyphene Allergy Rash/Hives Verified 09/10/21 13:39 [From Darvocet-N] sertraline [From Zoloft] Allergy Unknown Verified 09/10/21 13:39
[2021-09-12 06:25] VITALS: BP 122/58; PULSE 100; RESP 20; TEMP 98.6
--- NOTE | 2021-09-12 06:45 | P.HPADDEND ---
H&P Addendum H&P Addendum Date: 09/12/21 Notified by pre-op, patient's blood sugar 374! Case re-scheduled. Patient advised to go to ER and follow up with PCP for tight glycemic control.
[2021-09-12 06:50] LABS: Glucose,Whole Blood 375 mg/dL (75-99)
[2021-09-12] MEDS ORDERED: INSULIN ASPART (NovoLOG) 100 UNIT/ML VIAL SQ ONE (06:54)
[2021-09-12] MEDS ORDERED: HYDROmorphone 0.5 MG/0.5 ML SYRINGE IVP PRN (07:00)
== END 2021-09-12 07:00 | disposition home or self-care (01) ==
LOC: OR 05:45
PROVIDERS: ATTEND Surgery Plastic and Reconstructive Surgery
DX: K66.0 Peritoneal adhesions (postprocedural) (postinfection) (principal); Z53.09 Procedure and treatment not carried out because of other contraindication; R73.9 Hyperglycemia, unspecified

== ENCOUNTER → 2021-09-16 | Outpatient (CLI) | payer OTHER ==
[2021-09-16 19:18] LABS: HGB 12.4 g/dL (12.0-15.0); MCH 29.2 pg (27.0-32.0); MCHC 32.6 g/dL (32.0-37.0); MCV 89.6 fL (80.0-97.0); NRBC Per 100 WBC 0 /100 WBCS (0.0-0.0); Platelet Count 261 X 10*3/uL (140-440); RBC 4.24 X 10*6/uL (4.10-5.20); RDW 13.3 % (11.5-14.5); WBC 8.37 X 10*3/uL (4.50-10.00)
[2021-09-16 19:59] LABS: ALT 12 U/L (8-44); AST 21 U/L (13-35); African American GFR (CKD) 117.1 (60.0-200.0); Albumin 3.9 g/dL (3.8-4.9); Albumin/Globulin Ratio 1.56 (1.60-3.17); Alkaline Phosphatase 122 U/L (41-126); BUN/Creat Ratio 29.86 Ratio (12.00-20.00); Blood Urea Nitrogen 20.9 mg/dL (9.0-27.0); Calcium 9.5 mg/dL (8.7-10.3); Carbon Dioxide 21.9 mmol/L (20.0-27.5); Chloride 109 mmol/L (96-109); Globulin 2.5 g/dL (1.6-3.3); Glucose 101 mg/dL (70-110); Potassium 3.8 mmol/L (3.5-5.5); Sodium 142 mmol/L (135-145); Total Bilirubin <0.15 mg/dL (0.30-1.20); Total Protein 6.4 g/dL (6.2-8.2)
== END | disposition home or self-care (01) ==
LOC: LABWHC1 10:08
PROVIDERS: ATTEND Surgery Plastic and Reconstructive Surgery
DX: E11.65 Type 2 diabetes mellitus with hyperglycemia (principal)
CPT/HCPCS: 36415; 80053; 83036; 85027

== ENCOUNTER 2021-10-03 09:45 | Day surgery (SDC) | payer OTHER ==
[2021-10-02 09:31] VITALS: BMI 42.0
--- NOTE | 2021-10-03 05:47 | P.GSHP ---
History of Present Illness H&P Date: 10/03/21 CHIEF COMPLAINT: History of intra-abdominal adhesions HISTORY OF PRESENT ILLNESS: The patient is a 51-year-old female who presents with history of intra-abdominal adhesions from multiple prior surgeries including increasing abdominal pain for over 3 months. She had uncontrolled diabetes with blood sugar glucose almost 400s. She is seeing an hadoop developer. Her blood sugar glucose has decreased to 100s to 150s with change of her medications. She now presents for diagnostic laparoscopy including lysis of adhesions. PAST MEDICAL HISTORY: Please see list. PAST SURGICAL HISTORY: Please see list. MEDICATIONS: Please see list. ALLERGIES: Please see list. SOCIAL HISTORY: No illicit drug use FAMILY HISTORY: No reports of Crohn disease or ulcerative colitis. REVIEW OF ORGAN SYSTEMS: CONSTITUTIONAL: No reports of fevers or chills. GI: Denies any blood in stools or constipation. ENDOCRINE: History of uncontrolled diabetes. Has hypothyroidism. PHYSICAL EXAM: VITAL SIGNS: Stable GENERAL: Well-developed pleasant and in no acute distress. HEENT: No scleral icterus. Extraocular movements grossly intact. Moist buccal mucosa. NECK: Supple without lymphadenopathy. CHEST: Unlabored respirations. Equal bilateral excursions. CARDIOVASCULAR: Regular rate and rhythm. Distal 2+ pulses. ABDOMEN: Soft, diffuse abdominal tenderness. No peritonitis. MUSCULOSKELETAL: No clubbing, cyanosis, or edema. ASSESSMENT: 1. Diffuse abdominal pain. 2. History of multiple abdominal surgeries. 3. Intra-abdominal adhesions. 4. Diabetes type II, insulin dependent. PLAN: 1. Robotic lysis of adhesions were described in detail including risk of injury to the intestine, need for further surgery, and open technique. 2. DVT prophylaxis. 3. Antibiotic prophylaxis. 4. She is increased risk due to diabetes, hypertensive heart disease, and chronic pain. Past Medical History Past Medical History: Diabetes Mellitus, GERD/Reflux, Hyperlipidemia, Thyroid Disorder Additional Past Medical History / Comment(s): hx ventral hernia, frequent uti's,twisted small bowel, HYPOKALEMIA, pancreatitis History of Any Multi-Drug Resistant Organisms: None Reported Past Surgical History: Bowel Resection, Section, Cholecystectomy, Hernia Repair, Hysterectomy, Joint Replacement, Orthopedic Surgery Additional Past Surgical History / Comment(s): bilat knees replaced,. thymus gland removal,. ventral hernia repair w/ mesh. COLONOSCOPY/EGD Past Anesthesia/Blood Transfusion Reactions: No Reported Reaction Additional Past Anesthesia/Blood Transfusion Reaction / Comment(s): no problems with prior blood transfusion in 1994 Past Psychological History: Anxiety, Depression, Panic Disorder, PTSD, Schizoaffective Disorder, Schizophrenia Smoking Status: Never smoker Past Alcohol Use History: None Reported Past Drug Use History: None Reported - Past Family History Mother Family Medical History: Cancer Additional Family Medical History / Comment(s): lung Father Family Medical History: Myocardial Infarction ([place]) Sister(s) Family Medical History: Cancer Additional Family Medical History / Comment(s): breast Medications and Allergies Home Medications Medication Instructions Recorded Confirmed Type Omeprazole [PriLOSEC] 20 mg PO DAILY 01/12/19 10/02/21 History Atorvastatin [Lipitor] 80 mg PO DAILY 11/10/19 10/02/21 History Levothyroxine Sodium [Synthroid] 150 mcg PO DAILY 11/10/19 10/02/21 History Empagliflozin [Jardiance] 25 mg PO DAILY 12/11/20 10/02/21 History Topiramate [Topamax] 100 mg PO BID 12/11/20 10/02/21 History metFORMIN HCL [Glucophage] 1,000 mg PO BID 12/11/20 10/02/21 History Insulin Aspart [NovoLOG Flexpen] 25 units SQ AC-TID 04/16/21 10/02/21 History LORazepam [Ativan] 1 mg PO TID PRN 04/16/21 10/02/21 History Aspirin EC [Ecotrin Low Dose] 81 mg PO DAILY 07/14/21 10/02/21 History Ergocalciferol (Vitamin D2) 1,250 mcg PO Q7D 07/14/21 10/02/21 History [Drisdol (50,000 Iu)] oxyCODONE-APAP 10-325MG [Percocet 1 tab PO TID PRN 07/21/21 10/02/21 History 10-325 mg] Fenofibrate Nanocrystallized 145 mg PO DAILY 08/03/21 10/02/21 History [Fenofibrate] Losartan [Cozaar] 25 mg PO DAILY 08/03/21 10/02/21 History Ondansetron Odt [Zofran ODT] 4 mg PO Q8H PRN 08/03/21 10/02/21 History Cyanocobalamin [Vitamin B-12] 1,000 mcg PO DAILY 30 Days #60 tab 08/05/21 10/02/21 Rx Cariprazine HCl [Vraylar] 1.5 mg PO BID 08/25/21 10/02/21 History Dicyclomine [Bentyl] 20 mg PO QID 08/25/21 10/02/21 History Ibuprofen [Motrin] 800 mg PO Q8H PRN 08/25/21 10/02/21 History Lurasidone [Latuda] 20 mg PO HS 08/25/21 10/02/21 History Meclizine [Antivert] 25 mg PO QID PRN 08/25/21 10/02/21 History Dulaglutide [Trulicity] 1.5 mg SQ WE 09/10/21 10/02/21 History Nf-Long Acting Insulin, Name Unk, 50 units SQ HS 10/02/21 10/02/21 History Will Bring From Home Nf-Long Acting Insulin, Name Unk, 100 units SQ QAM 10/02/21 10/02/21 History Will Bring From Home Allergies Allergy/AdvReac Type Severity Reaction Status Date / Time bupropion [From Wellbutrin] Allergy Rash/Hives Verified 10/02/21 09:17 cephalexin [From Keflex] Allergy Rash/Hives Verified 10/02/21 09:17 propoxyphene Allergy Rash/Hives Verified 10/02/21 09:17 [From Darvocet-N] sertraline [From Zoloft] Allergy Unknown Verified 10/02/21 09:17
[~2021-10-03 09:45] MED LIST changes: +ACETAMINOPHEN TAB 500 MG TAB PO PRN; -CLINDAMYCIN 900 MG in DEXTROSE 5% IN WATER 50 ML IVPB PRN; +GABAPENTIN 300 MG CAP PO PRN; +MELOXICAM 7.5 MG TAB PO PRN; +Pre Op ABX Message 1 EACH MISC MISCELLANE ONE; +SCOPOLAMINE 1 MG/72 HR PATCH TRANSDERM PRN
[2021-10-03 10:27] LABS: Glucose,Whole Blood 94 mg/dL (75-99)
[2021-10-03] MEDS ORDERED: fentaNYL (PF) 50 MCG/ML 2 ML AMP IVP ONE (12:16)
[2021-10-03] MEDS ORDERED: ROCURONIUM 10 MG/ML (5 ML VIAL) IV ONE (12:45)
[2021-10-03] MEDS ORDERED: MIDAZOLAM 2 MG/2 ML VIAL ONE (12:45)
[2021-10-03] MEDS ORDERED: LIDOCAINE 2% INJ 20 MG/ML (2 ML VIAL) ONE (12:45)
[2021-10-03] MEDS ORDERED: SUCCINYLCHOLINE CHLORIDE 100 MG/5 ML SYR IV ONE (12:45)
[2021-10-03] MEDS ORDERED: KETOROLAC 15 MG/ML 1 ML VIAL ONE (12:45)
[2021-10-03] MEDS ORDERED: HYDROmorphone (PF) 1 MG/ML ONE (12:45)
[2021-10-03] MEDS ORDERED: GLYCOPYRROLATE 0.2 MG/ML 2 ML VIAL ONE (12:45)
[2021-10-03] MEDS ORDERED: PROPOFOL 10 MG/ML 20 ML VIAL IV ONE (12:45)
[2021-10-03] MEDS ORDERED: fentaNYL (PF) 50 MCG/ML 2 ML AMP ONE (12:45)
[2021-10-03] MEDS ORDERED: NEOSTIGMINE 1 MG/ML 10 ML VIAL ONE (12:45)
[2021-10-03] MEDS ORDERED: HEPARIN SODIUM,PORCINE/PF 5,000 UNIT/0.5 ML SYRINGE SQ PRN (13:12)
[2021-10-03] MEDS ORDERED: BUPIVACAIN-EPI 0.25%-1:200,000 30 ML VIAL SQ ONE (13:21)
[2021-10-03] MEDS: HYDROmorphone 0.5 MG/0.5 ML SYRINGE IVP PRN ×2 (15:30→15:45)
[2021-10-03 15:34] VITALS: TEMP 99.7
[2021-10-03 15:47] LABS: Glucose,Whole Blood 162 mg/dL (75-99)
--- NOTE | 2021-10-03 16:00 | P.OP ---
Date of Procedure: 10/03/21 Description of Procedure: SURGEON: YARELIS HERNANDES MD PREOPERATIVE DIAGNOSES: 1. Severe generalized abdominal pain due to adhesions 2. History of multiple abdominal surgeries 3. History of peritoneal adhesions 4. Diabetes type 2, insulin-dependent with prior hyperglycemia 5. Morbid obesity due to excess calories, BMI 44.1 6. Depressive disorder 7. Hypertensive heart disease 8. Seizure disorder 9. Panniculitis 10. Irritable bowel syndrome 11. Hyperlipidemia 12. Diabetic neuropathy 13. Gastroesophageal reflux disease 14. Hypothyroidism 15. Generalized anxiety disorder 16. Panic disorder 17. Posttraumatic stress disorder 18. Schizophrenia 19. Schizoaffective disorder POSTOPERATIVE DIAGNOSES: 1. Severe generalized abdominal pain due to adhesions 2. History of multiple abdominal surgeries 3. History of peritoneal adhesions 4. Diabetes type 2, insulin-dependent with prior hyperglycemia 5. Morbid obesity due to excess calories, BMI 44.1 6. Depressive disorder 7. Hypertensive heart disease 8. Seizure disorder 9. Panniculitis 10. Irritable bowel syndrome 11. Hyperlipidemia 12. Diabetic neuropathy 13. Gastroesophageal reflux disease 14. Hypothyroidism 15. Generalized anxiety disorder 16. Panic disorder 17. Posttraumatic stress disorder 18. Schizophrenia 19. Schizoaffective disorder OPERATION: 1. Robotic-assisted da Black Xi laparoscopic extensive lysis of adhesions over 1.5 hr COMPLICATIONS: None. Anesthesia: GETA, local Estimated Blood Loss (ml): 20 Pathology: none sent Condition: stable Disposition: same day OPERATIVE FINDINGS: 1. Severe peritoneal adhesions small bowel to the abdominal wall. 2. Severe pelvic sigmoid colon to the pelvis 3. Greater omental adhesions to the abdominal wall 4. No recurrent incisional hernia of the lower abdomen 5. Appendix identified along the right pelvis and within normal limits 6. Colon and small bowel adherent to the right lower pelvis 7. Colon and small bowel released along the left pelvis and bladder INDICATIONS: The patient is a 51-year-old female who presents with recent bowel obstruction due to adhesions. Robotic assisted laparoscopic approach was described. Possible bowel resection was described. Benefits and risks of the procedure including but not limited to bleeding, infection, injury to the small bowel was described. Informed consent was obtained. DESCRIPTION OF PROCEDURE: Patient was brought to the operating room, placed in supine position. After general induction, the abdomen had been prepped and draped in standard sterile fashion. The robotic da Black XI system was primed. After a timeout protocol was performed, the patient had been prepped and draped in standard sterile fashion. The robot was docked along the right lateral abdomen. The patient was repositioned in reverse Trendelenburg position of 7-degrees with left side up. A 5 mm 0 degrees laparoscopic trocar entry was performed along the left upper quadrant. The abdomen was insufflated to 15 mmHg pressure which was tolerated well. Diagnostic laparoscopy demonstrated severe intra-abdominal adhesions involving the midline at the umbilicus and bilateral pelvis. Next, three 8 mm robotic ports were placed along the right lateral abdominal wall. The camera 8-mm port was initially docked along the epigastrium. Please note that the ports were placed at least 8 cm away from the target anatomy. Instruments were interchanged using only 3 ports for a grasper, vessel sealer, and scissors with cautery. Instruments were interchanged by the medical administrative assistant including Bovie cautery scissors. I had sat at the console. Extensive lysis of adhesions over 1.5 hours were performed. Adhesions along the abdominal wall were divided using vessel sealer. Small bowel was adherent along the left lower quadrant and from the abdominal wall. Additionally, small bowel was found adherent to the left lower quadrant. Careful lysis of adhesions was performed. Carefully the adhesions were taken down without injury to the small bowel using vessel sealer and cautery on scissors. Adherent adhesive band involving the distal jejunum to the abdominal wall was unable to divide. The appendix was identified within the deep right pelvis elongated and within normal limits. A 12 mm trochar was placed along the left upper epigastrium by the medical administrative assistant for sponges and hemostasis. The robot was undocked. The 12 mm trocar site was less than 8-mm. All pneumoperitoneum and instruments were evacuated from the abdominal cavity. The incisions were reapproximated using 4-0 Monocryl in an interrupted subcuticular fashion. Please note along the trocar sites, local anesthetic was placed as a field block prior to insertion of all instruments. Liquid glue was applied to the skin. At the end of the procedure needle, sponge, and instrument count had been verified correct by the surgical services asst. The patient was transferred to postanesthesia care unit in stable condition. Intraoperative images including findings were described to the patients family. Plan - Discharge Summary Discharge Rx Participant: No New Discharge Prescriptions: New Simethicone 40 mg/0.6 ml Drops [Mylicon Drops] 40 mg PO Q6HR PRN #30 ml PRN Reason: Abdominal Distention Acetaminophen Tab [Tylenol Tab] 1,000 mg PO Q6HR PRN #30 tablet PRN Reason: Pain Continue Omeprazole [PriLOSEC] 20 mg PO DAILY Atorvastatin [Lipitor] 80 mg PO DAILY Levothyroxine Sodium [Synthroid] 150 mcg PO DAILY Topiramate [Topamax] 100 mg PO BID metFORMIN HCL [Glucophage] 1,000 mg PO BID Empagliflozin [Jardiance] 25 mg PO DAILY Aspirin EC [Ecotrin Low Dose] 81 mg PO DAILY oxyCODONE-APAP 10-325MG [Percocet 10-325 mg] 1 tab PO TID PRN PRN Reason: Pain Losartan [Cozaar] 25 mg PO DAILY Cariprazine HCl [Vraylar] 1.5 mg PO BID LORazepam [Ativan] 1 mg PO TID PRN PRN Reason: Anxiety Insulin Aspart [NovoLOG Flexpen] 25 units SQ AC-TID Ergocalciferol (Vitamin D2) [Drisdol (50,000 Iu)] 1,250 mcg PO Q7D Fenofibrate Nanocrystallized [Fenofibrate] 145 mg PO DAILY Ondansetron Odt [Zofran ODT] 4 mg PO Q8H PRN PRN Reason: Nausea Cyanocobalamin [Vitamin B-12] 1,000 mcg PO DAILY 30 Days #60 tab Meclizine [Antivert] 25 mg PO QID PRN PRN Reason: Vertigo Lurasidone [Latuda] 20 mg PO HS Ibuprofen [Motrin] 800 mg PO Q8H PRN PRN Reason: Pain Dicyclomine [Bentyl] 20 mg PO QID Dulaglutide [Trulicity] 1.5 mg SQ WE Nf-Long Acting Insulin, Name Unk, Will Bring From Home 100 units SQ QAM Nf-Long Acting Insulin, Name Unk, Will Bring From Home 50 units SQ HS Discharge Medication List Omeprazole [PriLOSEC] 20 mg PO DAILY 01/12/19 [History] Atorvastatin [Lipitor] 80 mg PO DAILY 11/10/19 [History] Levothyroxine Sodium [Synthroid] 150 mcg PO DAILY 11/10/19 [History] Empagliflozin [Jardiance] 25 mg PO DAILY 12/11/20 [History] Topiramate [Topamax] 100 mg PO BID 12/11/20 [History] metFORMIN HCL [Glucophage] 1,000 mg PO BID 12/11/20 [History] Insulin Aspart [NovoLOG Flexpen] 25 units SQ AC-TID 04/16/21 [History] LORazepam [Ativan] 1 mg PO TID PRN 04/16/21 [History] Aspirin EC [Ecotrin Low Dose] 81 mg PO DAILY 07/14/21 [History] Ergocalciferol (Vitamin D2) [Drisdol (50,000 Iu)] 1,250 mcg PO Q7D 07/14/21 [History] oxyCODONE-APAP 10-325MG [Percocet 10-325 mg] 1 tab PO TID PRN 07/21/21 [History] Fenofibrate Nanocrystallized [Fenofibrate] 145 mg PO DAILY 08/03/21 [History] Losartan [Cozaar] 25 mg PO DAILY 08/03/21 [History] Ondansetron Odt [Zofran ODT] 4 mg PO Q8H PRN 08/03/21 [History] Cyanocobalamin [Vitamin B-12] 1,000 mcg PO DAILY 30 Days #60 tab 08/05/21 [Rx] Cariprazine HCl [Vraylar] 1.5 mg PO BID 08/25/21 [History] Dicyclomine [Bentyl] 20 mg PO QID 08/25/21 [History] Ibuprofen [Motrin] 800 mg PO Q8H PRN 08/25/21 [History] Lurasidone [Latuda] 20 mg PO HS 08/25/21 [History] Meclizine [Antivert] 25 mg PO QID PRN 08/25/21 [History] Dulaglutide [Trulicity] 1.5 mg SQ WE 09/10/21 [History] Nf-Long Acting Insulin, Name Unk, Will Bring From Home 50 units SQ HS 10/02/21 [History] Nf-Long Acting Insulin, Name Unk, Will Bring From Home 100 units SQ QAM 10/02/21 [History] Acetaminophen Tab [Tylenol Tab] 1,000 mg PO Q6HR PRN #30 tablet 10/03/21 [Rx] Simethicone 40 mg/0.6 ml Drops [Mylicon Drops] 40 mg PO Q6HR PRN #30 ml 10/03/21 [Rx] Follow up Appointment(s)/Referral(s): Yarelis Hernandes MD [STAFF PHYSICIAN] - 10/07/21 (Telehealth) Patient Instructions/Handouts: *[facility] - Anesthesia Discharge Instructions, *[facility] - Managing Your Pain After Surgery Without Opioids, Lysis of Abdominal Adhesions (DC) Activity/Diet/Wound Care/Special Instructions: May shower. No bath tub soaks for two weeks until October 17 Diet as tolerated. Use Tylenol and ibuprofen or Aleve scheduled for the next 24-48 hours for best pain relief. Use ice along incisions for today to prevent swelling. No lifting over 10 pounds in 2 weeks, October 17 Discharge Disposition: HOME SELF-CARE
[2021-10-03 16:57] VITALS: RESP 20
[2021-10-03] MEDS ORDERED: IBUPROFEN 200 MG TAB PO ONE (17:10)
[2021-10-03 17:50] VITALS: BP 115/72; PULSE 100
== END 2021-10-03 17:46 | disposition home or self-care (01) ==
LOC: OR 09:45
PROVIDERS: ATTEND Surgery Plastic and Reconstructive Surgery
DX: K66.0 Peritoneal adhesions (postprocedural) (postinfection) (principal); E11.65 Type 2 diabetes mellitus with hyperglycemia; E03.9 Hypothyroidism, unspecified; I11.9 Hypertensive heart disease without heart failure; E66.01 Morbid (severe) obesity due to excess calories; E11.40 Type 2 diabetes mellitus with diabetic neuropathy, unspecified; G40.909 Epilepsy, unspecified, not intractable, without status epilepticus; K58.9 Irritable bowel syndrome, unspecified; F41.1 Generalized anxiety disorder; M79.3 Panniculitis, unspecified; K21.9 Gastro-esophageal reflux disease without esophagitis; E78.5 Hyperlipidemia, unspecified; F32.A Depression, unspecified; F41.0 Panic disorder [episodic paroxysmal anxiety]; F43.10 Post-traumatic stress disorder, unspecified; F25.9 Schizoaffective disorder, unspecified; Z79.899 Other long term (current) drug therapy; Z79.84 Long term (current) use of oral hypoglycemic drugs; Z79.890 Hormone replacement therapy; Z79.82 Long term (current) use of aspirin; Z79.4 Long term (current) use of insulin; Z88.1 Allergy status to other antibiotic agents; Z88.8 Allergy status to other drugs, medicaments and biological substances; Z68.41 Body mass index [BMI] 40.0-44.9, adult; Z87.440 Personal history of urinary (tract) infections; Z87.898 Personal history of other specified conditions; Z90.49 Acquired absence of other specified parts of digestive tract; Z98.891 History of uterine scar from previous surgery; Z98.890 Other specified postprocedural states; Z90.710 Acquired absence of both cervix and uterus; Z96.653 Presence of artificial knee joint, bilateral; Z80.1 Family history of malignant neoplasm of trachea, bronchus and lung; Z82.49 Family history of ischemic heart disease and other diseases of the circulatory system; Z80.3 Family history of malignant neoplasm of breast
CPT/HCPCS: 44180; J2250; J1100; J2710; J0690; J2405; J3010; J1170 ×2; J1885; J0330; J2704; J1644; J2001

== ENCOUNTER 2021-10-16 11:57 | Emergency (ER) | payer OTHER ==
[2021-10-16 12:04] LABS: Glucose,Whole Blood 179 mg/dL (75-99)
[2021-10-16 12:07] VITALS: RESP 18
--- NOTE | 2021-10-16 13:05 | XR ---
EXAMINATION TYPE: XR chest 2V DATE OF EXAM: 10/16/2021 COMPARISON: 08/02/2021 HISTORY: 51-year-old female with weakness TECHNIQUE: PA and lateral views FINDINGS: Heart normal size. Aorta and pulmonary vasculature within normal limits. Some mild patchy density at the right base. No other consolidation or pleural effusion. IMPRESSION: Some mild patchy density at the right base could represent atelectasis versus early infiltrate. Clini joanie correlate.
[2021-10-16 13:11] LABS: Basophils # (A) 0.1 k/uL (0-0.2); Basophils % (A) 1 %; Eosinophils # (A) 0.6 k/uL (0-0.7); Eosinophils % (A) 6 %; HCT 35.6 % (34.0-46.0); HGB 11.5 gm/dL (11.4-16.0); Lymphocytes # (A) 1.9 k/uL (1.0-4.8); Lymphocytes % (A) 18 %; MCH 28.4 pg (25.0-35.0); MCHC 32.3 g/dL (31.0-37.0); MCV 88.1 fL (80.0-100.0); Mean Platelet Volume 7.9; Monocytes # (A) 0.3 k/uL (0-1.0); Monocytes % (A) 3 %; Neutrophils # (A) 7.3 k/uL (1.3-7.7); Neutrophils % (A) 71 %; Platelet Count 348 k/uL (150-450); RBC 4.04 m/uL (3.80-5.40); WBC 10.2 k/uL (3.8-10.6)
--- NOTE | 2021-10-16 13:11 | CT ---
EXAMINATION TYPE: CT brain wo con DATE OF EXAM: 10/16/2021 COMPARISON: 08/02/2021 HISTORY: Paresthesias CT DLP: 1202.4 mGycm Automated exposure control for dose reduction was used. FINDINGS: Hyperostosis of the calvarium. Ventricular system compatible the patient's age. No evidence of acute hemorrhage or mass effect. Nasal septal deviation noted. Orbits are symmetric. Craniocervical junction demonstrates low-lying ce rebellar tonsils at the level of foramen magnum. Partially empty sella turcica. IMPRESSION: NO ACUTE HEMORRHAGE OR MASS EFFECT. IF SYMPTOMS PERSIST CONSIDER MRI.
[2021-10-16 13:14] LABS: Appearance,Urine Clear (Clear); Bacteria,Urine Moderate /hpf; Bilirubin,Urine Negative (Negative); Blood,Urine Negative (Negative); Color,Urine Light Yellow; Glucose,Urine (UA) Trace (Negative); Ketones,Urine Negative (Negative); Leukocyte Esterase,Urine Small (Negative); Nitrite,Urine Negative (Negative); PH, Urine 6.5 (5.0-8.0); Protein,Urine Negative (Negative); Specific Gravity,Urine 1.008 (1.001-1.035); Squamous Epithelial Cell,Urine 1 /hpf (0-4); Urobilinogen,Urine <2.0 mg/dL (<2.0); WBC,Urine 24 /hpf (0-5)
[2021-10-16 13:16] LABS: INR 0.9 (<1.2); Partial Thromboplastin Time 23.2 sec (22.0-30.0); Prothrombin Time 10.2 sec (9.0-12.0)
[2021-10-16 13:34] LABS: ALT 14 U/L (4-34); AST 21 U/L (14-36); African American GFR (CKD) >90 (>60 ml/min/1.73 sqM); Albumin 3.5 g/dL (3.5-5.0); Alkaline Phosphatase 104 U/L (38-126); Anion Gap 12 mmol/L; Blood Urea Nitrogen 18 mg/dL (7-17); Calcium 8.7 mg/dL (8.4-10.2); Carbon Dioxide 20 mmol/L (22-30); Chloride 107 mmol/L (98-107); Glucose 159 mg/dL (74-99); Non-African American GFR(CKD) >90 (>60 ml/min/1.73 sqM); Potassium 3.7 mmol/L (3.5-5.1); Sodium 139 mmol/L (137-145); Total Bilirubin 0.2 mg/dL (0.2-1.3); Total Protein 6.1 g/dL (6.3-8.2)
--- NOTE | 2021-10-16 13:49 | ED ---
General Adult HPI - General Chief complaint: Weakness Stated complaint: L Leg/Arm Numbness Time Seen by Provider: 10/16/21 12:05 Source: patient, EMS, RN notes reviewed, old records reviewed Mode of arrival: EMS - History of Present Illness Initial comments: This a 51-year-old female who presents emergency department stating that she has been feeling weak since October 05. Patient states since then she's had tingling in her arm or leg and felt like there weaker even though she has normal strength. Patient states overall she just hasn't felt good since October 05. Patient denies an y headache. Patient denies any chest pain palpitations difficulty breathing shortness of breath. Patient denies abdominal pain patient denies nausea vomiting diarrhea. Patient states earlier today she felt like she was having some trouble ambulating however EMS stated she got up and walked to the stretcher without problem and no ataxia was noted. Patient denies any fever chills or cough - Related Data Home Medications Medication Instructions Recorded Confirmed Omeprazole [PriLOSEC] 20 mg PO DAILY 01/12/19 10/16/21 Atorvastatin [Lipitor] 80 mg PO DAILY 11/10/19 10/16/21 Levothyroxine Sodium [Synthroid] 150 mcg PO DAILY 11/10/19 10/16/21 Empagliflozin [Jardiance] 25 mg PO DAILY 12/11/20 10/16/21 Topiramate [Topamax] 100 mg PO DAILY 12/11/20 10/16/21 metFORMIN HCL [Glucophage] 1,000 mg PO BID 12/11/20 10/16/21 LORazepam [Ativan] 1 mg PO TID PRN 04/16/21 10/16/21 Ergocalciferol (Vitamin D2) 1,250 mcg PO Q30D 07/14/21 10/16/21 [Drisdol (50,000 Iu)] oxyCODONE-APAP 10-325MG [Percocet 1 tab PO TID PRN 07/21/21 10/16/21 10-325 mg] Fenofibrate Nanocrystallized 145 mg PO DAILY 08/03/21 10/16/21 [Fenofibrate] Losartan [Cozaar] 25 mg PO DAILY 08/03/21 10/16/21 Dicyclomine [Bentyl] 20 mg PO QID 08/25/21 10/16/21 Dulaglutide [Trulicity] 3 mg SQ TH 10/16/21 10/16/21 Insulin Regular [HumuLIN R] 50 units SQ AC-SUPPER 10/16/21 10/16/21 Insulin Regular [HumuLIN R] 100 units SQ AC-BRKFST 10/16/21 10/16/21 Paliperidone [Invega] 1.5 mg PO SA 10/16/21 10/16/21 Paliperidone [Invega] 3 mg PO HS 10/16/21 10/16/21 Prazosin HCl 2 mg PO HS 10/16/21 10/16/21 Prazosin [Minipress] 1 mg PO HS 10/16/21 10/16/21 Venlafaxine HCl ER [Effexor Xr] 75 mg PO BID 10/16/21 10/16/21 busPIRone HCl [Buspar] 10 mg PO BID 10/16/21 10/16/21 Previous Rx's Medication Instructions Recorded Sulfamethox-Tmp 800-160Mg [Bactrim 1 each PO Q12HR #14 tab 10/16/21 DS 800-160 mg] Allergies Allergy/AdvReac Type Severity Reaction Status Date / Time bupropion [From Wellbutrin] Allergy Rash/Hives Verified 10/16/21 14:25 cephalexin [From Keflex] Allergy Rash/Hives Verified 10/16/21 14:25 propoxyphene Allergy Rash/Hives Verified 10/16/21 14:25 [From Darvocet-N] sertraline [From Zoloft] Allergy Unknown Verified 10/16/21 14:25 Review of Systems ROS Statement: Those systems with pertinent positive or pertinent negative responses have been documented in the HPI. ROS Other: All systems not noted in ROS Statement are negative. Past Medical History Past Medical History: Diabetes Mellitus, GERD/Reflux, Hyperlipidemia, Thyroid Disorder Additional Past Medical History / Comment(s): hx ventral hernia, frequent uti's ,twisted small bowel, HYPOKALEMIA, pancreatitis History of Any Multi-Drug Resistant Organisms: None Reported Past Surgical History: Bowel Resection, Section, Cholecystectomy, Hernia Repair, Hysterectomy, Joint Replacement, Orthopedic Surgery Additional Past Surgical History / Comment(s): bilat knees replaced,. thymus gland removal,. ventral hernia repair w/ mesh. COLONOSCOPY/EGD Past Anesthesia/Blood Transfusion Reactions: No Reported Reaction Additional Past Anesthesia/Blood Transfusion Reaction / Comment(s): no problems with prior blood transfusion in 1994 Past Psychological History: Anxiety, Depression, Panic Disorder, PTSD, [place] hizoaffective Disorder, Schizophrenia Smoking Status: Never smoker Past Alcohol Use History: None Reported Past Drug Use History: None Reported - Past Family History Mother Family Medical History: Cancer Additional Family Medical History / Comment(s): lung Father Family Medical History: Myocardial Infarction ([place]) Sister(s) Family Medical History: Cancer Additional Family Medical History / Comment(s): breast General Exam - General Exam Comments Initial Comments: GENERAL: Patient is well-developed and well-nourished. Patient is nontoxic and well- hydrated and is in no acute distress. ENT: Neck is soft and supple. No significant lymphadenopathy is noted. Oropharynx is clear. Moist mucous membranes. Neck has full range of motion without eliciting any pain. EYES: The sclera were anicteric and conjunctiva were pink and moist. Extraocular movements were intact and pupils were equal round and reactive to light. Eyelids were unremarkable. PULMONARY: Unlabored respirations. Good breath sounds bilaterally. No audible rales rhonchi or wheezing was noted. CARDIOVASCULAR: There is a regular rate and rhythm without any murmurs gallops or rubs. ABDOMEN: Soft and nontender with normal bowel sounds. SKIN: Skin is clear with no lesions or rashes and otherwise unremarkable. NEUROLOGIC: Patient is alert and oriented x3. Cranial nerves II through XII are grossly intact. Motor and sensory are also intact. Normal speech, volume and content. Symmetrical smile. Finger to nose testing bilaterally was normal MUSCULOSKELETAL: Normal extremities with adequate strength and full range of motion. No lower extremity swelling or edema. No calf tenderness. LYMPHATICS: No significant lymphadenopathy is noted PSYCHIATRIC: Normal psychiatric evaluation. Course Vital Signs 10/16/21 10/16/21 11:59 14:03 Temperature 98.3 F Pulse Rate 105 H 102 H Respiratory 18 18 Rate Blood Pressure 130/83 124/86 O2 Sat by Pulse 98 96 Oximetry Medical Decision Making - Medical Decision Making EKG shows sinus tachycardia at 106 bpm DE interval is on a 48 QRSs 80 QT interval 340 QTC is 402. Patient's EKG shows no ST segment elevation or depression. CT of the brain shows no acute abnormality. Chest x-ray shows no acute abnormality.. Patient was somewhat dehydrated psychiatric the patient on liter of normal saline. Patient has bacteria in the urine with 24 white cells I gave her a gram of Rocephin as well. Patient has no weakness or numbness currently and she is able to ambulate without problem. Patient states she will follow-up with her primary medical care doctor - Lab Data Result diagrams: 10/16/21 12:41 10/16/21 12:41 Lab Results 10/16/21 10/16/21 10/16/21 Range/Units 12:03 12:41 12:41 WBC 10.2 (3.8-10.6) k/uL RBC 4.04 (3.80-5.40) m/uL Hgb 11.5 (11.4-16.0) gm/dL Hct 35.6 (34.0-46.0) % MCV 88.1 (80.0-100.0) fL MCH 28.4 (25.0-35.0) pg MCHC 32.3 (31.0-37.0) g/dL RDW 14.0 (11.5-15.5) % Plt Count 348 (150-450) k/uL MPV 7.9 Neutrophils % 71 % Lymphocytes % 18 % Monocytes % 3 % Eosinophils % 6 % Basophils % 1 % Neutrophils # 7.3 (1.3-7.7) k/uL Lymphocytes # 1.9 (1.0-4.8) k/uL Monocytes # 0.3 (0-1.0) k/uL Eosinophils # 0.6 (0-0.7) k/uL Basophils # 0.1 (0-0.2) k/uL PT 10.2 (9.0-12.0) sec INR 0.9 (<1.2) APTT 23.2 (22.0-30.0) sec Sodium (137-145) mmol/L Potassium (3.5-5.1) mmol/L Chloride (98-107) mmol/L Carbon Dioxide (22-30) mmol/L Anion Gap mmol/L BUN (7-17) mg/dL Creatinine (0.52-1.04) mg/dL Est GFR (CKD-EPI)AfAm (>60 ml/min/1.73 sqM) Est GFR (CKD-EPI)NonAf (>60 ml/min/1.73 sqM) Glucose (74-99) mg/dL POC Glucose (mg/dL) 179 H (75-99) mg/dL POC Glu Exercise Teacher ID Silvio Law Plasma Lactic Acid Shayan (0.7-2.0) mmol/L Calcium (8.4-10.2) mg/dL Total Bilirubin (0.2-1.3) mg/dL AST (14-36) U/L ALT (4-34) U/L Alkaline Phosphatase (38-126) U/L Troponin I (0.000-0.034) ng/mL Total Protein (6.3-8.2) g/dL Albumin (3.5-5.0) g/dL Urine Color Urine Appearance (Clear) Urine pH (5.0-8.0) Ur Specific [place] (1.001-1.035) Urine Protein (Negative) Urine Glucose (UA) (Negative) Urine Ketones (Negative) Urine Blood (Negative) Urine Nitrite (Negative) Urine Bilirubin (Negative) Urine Urobilinogen (<2.0) mg/dL Ur Leukocyte Esterase (Negative) Urine WBC (0-5) /hpf Ur Squamous Epith Cells (0-4) /hpf Urine Bacteria (None) /hpf 10/16/21 10/16/21 10/16/21 Range/Units 12:41 12:41 12:41 WBC (3.8-10.6) k/uL RBC (3.80-5.40) m/uL Hgb (11.4-16.0) gm/dL Hct (34.0-46.0) % MCV (80.0-100.0) fL MCH (25.0-35.0) pg MCHC (31.0-37.0) g/dL RDW (11.5-15.5) % Plt Count (150-450) k/uL MPV Neutrophils % % Lymphocytes % % Monocytes % % Eosinophils % % Basophils % % Neutrophils # (1.3-7.7) k/uL Lymphocytes # (1.0-4.8) k/uL Monocytes # (0-1.0) k/uL Eosinophils # (0-0.7) k/uL Basophils # (0-0.2) k/uL PT (9.0-12.0) sec INR (<1.2) APTT (22.0-30.0) sec Sodium 139 (137-145) mmol/L Potassium 3.7 (3.5-5.1) mmol/L Chloride 107 (98-107) mmol/L Carbon Dioxide 20 L (22-30) mmol/L Anion Gap 12 mmol/L BUN 18 H (7-17) mg/dL Creatinine 0.70 (0.52-1.04) mg/dL Est GFR (CKD-EPI)AfAm >90 (>60 ml/min/1.73 sqM) Est GFR (CKD-EPI)NonAf >90 (>60 ml/min/1.73 sqM) Glucose 159 H (74-99) mg/dL POC Glucose (mg/dL) (75-99) mg/dL POC Glu Exercise Teacher ID Plasma Lactic Acid Shayan 2.8 H* (0.7-2.0) mmol/L Calcium 8.7 (8.4-10.2) mg/dL Total Bilirubin 0.2 (0.2-1.3) mg/dL AST 21 (14-36) U/L ALT 14 (4-34) U/L Alkaline Phosphatase 104 (38-126) U/L Troponin I (0.000-0.034) ng/mL Total Protein 6.1 L (6.3-8.2) g/dL Albumin 3.5 (3.5-5.0) g/dL Urine Color Light Yellow Urine Appearance Clear (Clear) Urine pH 6.5 (5.0-8.0) Ur Specific [place] 1.008 (1.001-1.035) Urine Protein Negative (Negative) Urine Glucose (UA) Trace H (Negative) Urine Ketones Negative (Negative) Urine Blood Negative (Negative) Urine Nitrite Negative (Negative) Urine Bilirubin Negative (Negative) Urine Urobilinogen <2.0 (<2.0) mg/dL Ur Leukocyte Esterase Small H (Negative) Urine WBC 24 H (0-5) /hpf Ur Squamous Epith Cells 1 (0-4) /hpf Urine Bacteria Moderate H (None) /hpf 10/16/21 Range/Units 12:41 WBC (3.8-10.6) k/uL RBC (3.80-5.40) m/uL Hgb (11.4-16.0) gm/dL Hct (34.0-46.0) % MCV (80.0-100.0) fL MCH (25.0-35.0) pg MCHC (31.0-37.0) g/dL RDW (11.5-15.5) % Plt Count (150-450) k/uL MPV Neutrophils % % Lymphocytes % % Monocytes % % Eosinophils % % Basophils % % Neutrophils # (1.3-7.7) k/uL Lymphocytes # (1.0-4.8) k/uL Monocytes # (0-1.0) k/uL Eosinophils # (0-0.7) k/uL Basophils # (0-0.2) k/uL PT (9.0-12.0) sec INR (<1.2) APTT (22.0-30.0) sec Sodium (137-145) mmol/L Potassium (3.5-5.1) mmol/L Chloride (98-107) mmol/L Carbon Dioxide (22-30) mmol/L Anion Gap mmol/L BUN (7-17) mg/dL Creatinine (0.52-1.04) mg/dL Est GFR (CKD-EPI)AfAm (>60 ml/min/1.73 sqM) Est GFR (CKD-EPI)NonAf (>60 ml/min/1.73 sqM) Glucose (74-99) mg/dL POC Glucose (mg/dL) (75-99) mg/dL POC Glu Exercise Teacher ID Plasma Lactic Acid Shayan (0.7-2.0) mmol/L Calcium (8.4-10.2) mg/dL Total Bilirubin (0.2-1.3) mg/dL AST (14-36) U/L ALT (4-34) U/L Alkaline Phosphatase (38-126) U/L Troponin I <0.012 (0.000-0.034) ng/mL Total Protein (6.3-8.2) g/dL Albumin (3.5-5.0) g/dL Urine Color Urine Appearance (Clear) Urine pH (5.0-8.0) Ur Specific [place] (1.001-1.035) Urine Protein (Negative) Urine Glucose (UA) (Negative) Urine Ketones (Negative) Urine Blood (Negative) Urine Nitrite (Negative) Urine Bilirubin (Negative) Urine Urobilinogen (<2.0) mg/dL Ur Leukocyte Esterase (Negative) Urine WBC (0-5) /hpf Ur Squamous Epith Cells (0-4) /hpf Urine Bacteria (None) /hpf Disposition Clinical Impression: Urinary tract infection, Dehydration, Paresthesias Disposition: HOME SELF-CARE Condition: Good Instructions (If sedation given, give patient instructions): Urinary Tract Infection in Women (ED), Paresthesia (ED) Prescriptions: Sulfamethox-Tmp 800-160Mg [Bactrim DS 800-160 mg] 1 each PO Q12HR #14 tab Is patient prescribed a controlled substance at d/c from ED?: No Referrals: Krystal Meek MD [Primary Care Provider] - 1-2 days Time of Disposition: 15:24
[2021-10-16] MEDS ORDERED: cefTRIAXone IN SWFI 1,000 MG/10 ML SYRINGE IVP STA (14:25)
[2021-10-16] MEDS ORDERED: SODIUM CHLORIDE 0.9% 1,000 ML IV ONE (14:26)
[2021-10-16 15:38] VITALS: BP 102/66; PULSE 101; TEMP 98.6
== END 2021-10-16 15:46 | disposition home or self-care (01) ==
LOC: EC 11:57
DX: N39.0 Urinary tract infection, site not specified (principal); E86.0 Dehydration; R20.2 Paresthesia of skin; E11.9 Type 2 diabetes mellitus without complications; K21.9 Gastro-esophageal reflux disease without esophagitis; E07.9 Disorder of thyroid, unspecified; Z90.49 Acquired absence of other specified parts of digestive tract; Z88.1 Allergy status to other antibiotic agents; Z88.8 Allergy status to other drugs, medicaments and biological substances; Z79.899 Other long term (current) drug therapy; Z79.890 Hormone replacement therapy; Z79.84 Long term (current) use of oral hypoglycemic drugs
CPT/HCPCS: 36415; 93005; 80053; 83605; 84484; 85025; 85610; 85730; 81001; 87086; 87077; 87186; 71046; 70450; 99285; 96374; J0696

== ENCOUNTER 2021-11-25 17:20 | Emergency (ER) | payer OTHER ==
[2021-11-25 17:30] VITALS: BP 117/69; PULSE 107; RESP 16
[2021-11-25] MEDS ORDERED: ASPIRIN 81 MG PO STA (17:42)
[2021-11-25] MEDS ORDERED: KETOROLAC 15 MG/ML 1 ML VIAL IVP STA (17:42)
[2021-11-25] MEDS ORDERED: MORPHINE SULFATE 4 MG/ML SYRINGE IV STA (17:42)
[2021-11-25] MEDS ORDERED: ONDANSETRON 4 MG/2 ML VIAL IVP STA (17:43)
[2021-11-25 18:27] LABS: Basophils # (A) 0.1 k/uL (0-0.2); Basophils % (A) 1 %; Eosinophils # (A) 0.4 k/uL (0-0.7); Eosinophils % (A) 5 %; HCT 34.6 % (34.0-46.0); HGB 11.8 gm/dL (11.4-16.0); Lymphocytes % (A) 24 %; MCH 30.1 pg (25.0-35.0); MCHC 34.2 g/dL (31.0-37.0); MCV 88.1 fL (80.0-100.0); Mean Platelet Volume 8.8; Monocytes # (A) 0.4 k/uL (0-1.0); Monocytes % (A) 4 %; Neutrophils # (A) 5.2 k/uL (1.3-7.7); Neutrophils % (A) 63 %; Platelet Count 271 k/uL (150-450); RBC 3.93 m/uL (3.80-5.40); RDW 14.7 % (11.5-15.5); WBC 8.2 k/uL (3.8-10.6)
[2021-11-25 18:28] LABS: ALT 17 U/L (4-34); AST 27 U/L (14-36); African American GFR (CKD) >90 (>60 ml/min/1.73 sqM); Albumin 3.5 g/dL (3.5-5.0); Alkaline Phosphatase 227 U/L (38-126); Anion Gap 9 mmol/L; Blood Urea Nitrogen 12 mg/dL (7-17); Calcium 8.1 mg/dL (8.4-10.2); Carbon Dioxide 20 mmol/L (22-30); Chloride 106 mmol/L (98-107); Glucose 442 mg/dL (74-99); Magnesium 1.4 mg/dL (1.6-2.3); Non-African American GFR(CKD) >90 (>60 ml/min/1.73 sqM); Potassium 4.4 mmol/L (3.5-5.1); Sodium 135 mmol/L (137-145); Total Bilirubin 0.2 mg/dL (0.2-1.3); Total Protein 6.1 g/dL (6.3-8.2)
--- NOTE | 2021-11-25 18:36 | ED ---
General Adult HPI - General Chief complaint: Chest Pain Stated complaint: chest pain Time Seen by Provider: 11/25/21 17:30 Source: EMS, RN notes reviewed, old records reviewed Mode of arrival: EMS Limitations: no limitations - History of Present Illness Initial comments: Patient is a 51-year-old female who presents emergency Department complaining of a multitude a history of chest pain. Earlier this month, she did have a stress test, and since that time she has been having mild chest discomfort that is intermittent.. Describes it as a chest pressure sensation. Somewhat worse with movement, both walking as well as of her upper torso. It is reproducible on palpation. Presents over concern for cardiac illness. Is uncertain the results of his stress test. Denies any history of PE or blood clots. Denies any cough, fevers, chills. Denies any nausea or vomiting or abdominal pain. Does have a history of diabetes. States that multiple nitroglycerin tablets were administered to her on her way to the hospital today with no change in her pain. Does have follow-up with her PCP in 2 days. - Related Data Home Medications Medication Instructions Recorded Confirmed Omeprazole [PriLOSEC] 20 mg PO DAILY 01/12/19 10/16/21 Atorvastatin [Lipitor] 80 mg PO DAILY 11/10/19 10/16/21 Levothyroxine Sodium [Synthroid] 150 mcg PO DAILY 11/10/19 10/16/21 Empagliflozin [Jardiance] 25 mg PO DAILY 12/11/20 10/16/21 Topiramate [Topamax] 100 mg PO DAILY 12/11/20 10/16/21 metFORMIN HCL [Glucophage] 1,000 mg PO BID 12/11/20 10/16/21 LORazepam [Ativan] 1 mg PO TID PRN 04/16/21 10/16/21 Ergocalciferol (Vitamin D2) 1,250 mcg PO Q30D 07/14/21 10/16/21 [Drisdol (50,000 Iu)] oxyCODONE-APAP 10-325MG [Percocet 1 tab PO TID PRN 07/21/21 10/16/21 10-325 mg] Fenofibrate Nanocrystallized 145 mg PO DAILY 08/03/21 10/16/21 [Fenofibrate] Losartan [Cozaar] 25 mg PO DAILY 08/03/21 10/16/21 Dicyclomine [Bentyl] 20 mg PO QID 08/25/21 10/16/21 Dulaglutide [Trulicity] 3 mg SQ TH 10/16/21 10/16/21 Insulin Regular [HumuLIN R] 50 units SQ AC-SUPPER 10/16/21 10/16/21 Insulin Regular [HumuLIN R] 100 units SQ AC-BRKFST 10/16/21 10/16/21 Paliperidone [Invega] 1.5 mg PO SA 10/16/21 10/16/21 Paliperidone [Invega] 3 mg PO HS 10/16/21 10/16/21 Prazosin HCl 2 mg PO HS 10/16/21 10/16/21 Prazosin [Minipress] 1 mg PO 10/16/21 10/16/21 Venlafaxine HCl ER [Effexor Xr] 75 mg PO BID 10/16/21 10/16/21 busPIRone HCl [Buspar] 10 mg PO BID 10/16/21 10/16/21 Previous Rx's Medication Instructions Recorded Sulfamethox-Tmp 800-160Mg [Bactrim 1 each PO Q12HR #14 tab 10/16/21 DS 800-160 mg] Allergies Allergy/AdvReac Type Severity Reaction Status Date / Time bupropion [From Wellbutrin] Allergy Rash/Hives Verified 10/16/21 14:25 cephalexin [From Keflex] Allergy Rash/Hives Verified 10/16/21 14:25 propoxyphene Allergy Rash/Hives Verified 10/16/21 14:25 [From Darvocet-N] sertraline [From Zoloft] Allergy Unknown Verified 10/16/21 14:25 Review of Systems ROS Statement: Those systems with pertinent positive or pertinent negative responses have been documented in the HPI. Review of Systems: CONST: Denies fever EYES: Denies blurry vision ENT: Denies nasal congestion C/V: Endorses reproducable chest pain. RESP: Denies shortness of breath GI: Denies abdominal pain : Denies dysuria SKIN: Denies rash. MSK: Denies joint pain. NEURO: Denies headache ROS Other: All systems not noted in ROS Statement are negative. Past Medical History Past Medical History: Diabetes Mellitus, GERD/Reflux, Hyperlipidemia, Thyroid Disorder Additional Past Medical History / Comment(s): hx ventral hernia, frequent uti's,twisted small bowel, HYPOKALEMIA, pancreatitis History of Any Multi-Drug Resistant Organisms: None Reported Past Surgical History: Bowel Resection, Section, Cholecystectomy, Hernia Repair, Hysterectomy, Joint Replacement, Orthopedic Surgery Additional Past Surgical History / Comment(s): bilat knees replaced,. thymus gland removal,. ventral hernia repair w/ mesh. COLONOSCOPY/EGD Past Anesthesia/Blood Transfusion Reactions: No Reported Reaction Additional Past Anesthesia/Blood Transfusion Reaction / Comment(s): no problems with prior blood transfusion in 1994 Past Psychological History: Anxiety, Depression, Panic Disorder, PTSD, Schizoaffective Disorder, Schizophrenia Smoking Status: Never smoker Past Alcohol Use History: None Reported Past Drug Use History: None Reported - Past Family History Mother Family Medical History: Cancer Additional Family Medical History / Comment(s): lung Father Family Medical History: Myocardial Infarction ([place]) Sister(s) Family Medical History: Cancer Additional Family Medical History / Comment(s): breast General Exam - General Exam Comments Initial Comments: General: Appears in no acute distress. HEAD: Normal with no signs of head trauma. EYES: PERRLA, EOMI, conjunctiva normal, no discharge. ENT: Hearing grossly intact, normal oropharynx. RESPIRATORY: Clear breath sounds bilaterally. No wheezes, rales, or rhonchi. C/V: Regular rate and rhythm. S1 and S2 auscultated, no edema, peripheral pulses 2+ and intact throughout. Chest pain is reproducible on palpation. ABD: Abd is soft, nontender, nondistended EXT: Normal range of motion, no obvious deformity SKIN: No rashes or lesions observed on exposed skin. NEURO: Alert and oriented 4. Limitations: no limitations Course Vital Signs 11/25/21 17:22 Pulse Rate 107 H Respiratory 16 Rate Blood Pressure 117/69 O2 Sat by Pulse 97 Oximetry Medical Decision Making - Medical Decision Making Based on the patient's presentation and physical exam, I'm concerned for possible cardiopulmonary etiology for her current symptoms. Chest pain is reproducible on palpation and has not responded and took nitroglycerin, and therefore I do believe this is likely atypical or muscular wall chest pain. She will be symptomatically treated and we will also obtain cardiac workup. She was in agreement this plan. EKG shows no signs of acute ischemia. Chest x-ray shows no acute cardiopulmonary process. Laboratory studies are remarkable for a d-dimer within normal limits. Patient is hypomagnesemia which is replenished. Troponin is undetectable. Patient is also hyperglycemic at this time in the setting of diabetes. I discussed results with the patient. She is feeling improved. Vital signs remain within normal limits and stable. I do believe it is safer to be discharged home at this time with close follow-up. She was in agreement this plan. Chest pain is atypical and likely related to her chest wall. Repeat blood sugar was an adequate level.Patient's heart score is low at 3. I instructed the patient to follow up with their PCP in the next 3 days. I explained that the patient should return to the emergency department if they experience any worsening symptoms. Strict return precautions were discussed with the patient. The patient expressed understanding of these instructions. I answered all questions that the patient had. The patient was discharged home in good condition with their prescriptions and follow up information. - Lab Data Result diagrams: 11/25/21 18:05 11/25/21 18:05 Lab Results 11/25/21 11/25/21 11/25/21 Range/Units 18:05 18:05 18:05 WBC 8.2 (3.8-10.6) k/uL RBC 3.93 (3.80-5.40) m/uL Hgb 11.8 (11.4-16.0) gm/dL Hct 34.6 (34.0-46.0) % MCV 88.1 (80.0-100.0) fL MCH 30.1 (25.0-35.0) pg MCHC 34.2 (31.0-37.0) g/dL RDW 14.7 (11.5-15.5) % Plt Count 271 (150-450) k/uL MPV 8.8 Neutrophils % 63 % Lymphocytes % 24 % Monocytes % 4 % Eosinophils % 5 % Basophils % 1 % Neutrophils # 5.2 (1.3-7.7) k/uL Lymphocytes # 2.0 (1.0-4.8) k/uL Monocytes # 0.4 (0-1.0) k/uL Eosinophils # 0.4 (0-0.7) k/uL Basophils # 0.1 (0-0.2) k/uL PT 9.9 (9.0-12.0) sec INR 0.9 (<1.2) APTT 22.5 (22.0-30.0) sec D-Dimer 0.55 (<0.60) mg/L FEU Sodium 135 L (137-145) mmol/L Potassium 4.4 (3.5-5.1) mmol/L Chloride 106 (98-107) mmol/L Carbon Dioxide 20 L (22-30) mmol/L Anion Gap 9 mmol/L BUN 12 (7-17) mg/dL Creatinine 0.64 (0.52-1.04) mg/dL Est GFR (CKD-EPI)AfAm >90 (>60 ml/min/1.73 sqM) Est GFR (CKD-EPI)NonAf >90 (>60 ml/min/1.73 sqM) Glucose 442 H (74-99) mg/dL Calcium 8.1 L (8.4-10.2) mg/dL Magnesium 1.4 L (1.6-2.3) mg/dL Total Bilirubin 0.2 (0.2-1.3) mg/dL AST 27 (14-36) U/L ALT 17 (4-34) U/L Alkaline Phosphatase 227 H (38-126) U/L Troponin I (0.000-0.034) ng/mL Total Protein 6.1 L (6.3-8.2) g/dL Albumin 3.5 (3.5-5.0) g/dL 11/25/21 Range/Units 18:05 WBC (3.8-10.6) k/uL RBC (3.80-5.40) m/uL Hgb (11.4-16.0) gm/dL Hct (34.0-46.0) % MCV (80.0-100.0) fL MCH (25.0-35.0) pg MCHC (31.0-37.0) g/dL RDW (11.5-15.5) % Plt Count (150-450) k/uL MPV Neutrophils % % Lymphocytes % % Monocytes % % Eosinophils % % Basophils % % Neutrophils # (1.3-7.7) k/uL Lymphocytes # (1.0-4.8) k/uL Monocytes # (0-1.0) k/uL Eosinophils # (0-0.7) k/uL Basophils # (0-0.2) k/uL PT (9.0-12.0) sec INR (<1.2) APTT (22.0-30.0) sec D-Dimer (<0.60) mg/L FEU Sodium (137-145) mmol/L Potassium (3.5-5.1) mmol/L Chloride (98-107) mmol/L Carbon Dioxide (22-30) mmol/L Anion Gap mmol/L BUN (7-17) mg/dL Creatinine (0.52-1.04) mg/dL Est GFR (CKD-EPI)AfAm (>60 ml/min/1.73 sqM) Est GFR (CKD-EPI)NonAf (>60 ml/min/1.73 sqM) Glucose (74-99) mg/dL Calcium (8.4-10.2) mg/dL Magnesium (1.6-2.3) mg/dL Total Bilirubin (0.2-1.3) mg/dL AST (14-36) U/L ALT (4-34) U/L Alkaline Phosphatase (38-126) U/L Troponin I <0.012 (0.000-0.034) ng/mL Total Protein (6.3-8.2) g/dL Albumin (3.5-5.0) g/dL - EKG Data -: EKG Interpreted by Me EKG Comments: 12-lead Electrocardiogram Interpretation Note EKG was reviewed and interpreted by myself. 12-lead ECG performed at 1802 is interpreted by me as revealing normal sinus rhythm at a rate of 98 beats per minute. [place] is normal. [place] interval is 165 ms, QRS duration 78 ms, QTc is 409 ms.. There were no ST or T wave abnormalities to suggest myocardial ischemia or injury. R wave progression across the precordium was satisfactory. By my interpretation this EKG is non-diagnostic for acute ischemia. Disposition Clinical Impression: Hyperglycemia, Hypomagnesemia, Atypical chest pain, Chest wall pain Disposition: HOME SELF-CARE Condition: Good Instructions (If sedation given, give patient instructions): Chest Wall Pain (ED) Is patient prescribed a controlled substance at d/c from ED?: No Referrals: Krystal Meek MD [Primary Care Provider] - 1-2 days Time of Disposition: 19:20
[2021-11-25 18:39] LABS: INR 0.9 (<1.2); Partial Thromboplastin Time 22.5 sec (22.0-30.0); Prothrombin Time 9.9 sec (9.0-12.0)
--- NOTE | 2021-11-25 18:56 | XR ---
EXAMINATION TYPE: XR chest 2V DATE OF EXAM: 11/25/2021 COMPARISON: NONE HISTORY: Chest pain TECHNIQUE: 2 views FINDINGS: Heart and mediastinum are normal. Lungs are clear. Diaphragm is normal. Bony thorax appears normal. IMPRESSION: Normal chest. No change.
[2021-11-25] MEDS ORDERED: INSULIN ASPART (NovoLOG) 100 UNIT/ML VIAL SQ ONE (19:00)
[2021-11-25] MEDS ORDERED: MAGNESIUM SULFATE-D5W PMX 1 GM in DEXTROSE/WATER 1 100ML.BAG IVPB ONE (19:00)
[2021-11-25] MEDS ORDERED: SODIUM CHLORIDE 0.9% 1,000 ML IV STA (19:43)
== END 2021-11-25 21:37 | disposition home or self-care (01) ==
LOC: EC 17:20
DX: E11.65 Type 2 diabetes mellitus with hyperglycemia (principal); E83.42 Hypomagnesemia; R07.89 Other chest pain; E78.5 Hyperlipidemia, unspecified; K21.9 Gastro-esophageal reflux disease without esophagitis; F32.A Depression, unspecified; F41.9 Anxiety disorder, unspecified; F25.9 Schizoaffective disorder, unspecified; E07.9 Disorder of thyroid, unspecified; Z79.4 Long term (current) use of insulin; Z79.84 Long term (current) use of oral hypoglycemic drugs; Z79.890 Hormone replacement therapy; Z79.899 Other long term (current) drug therapy
CPT/HCPCS: 36415; 85379; 80053; 83735; 84484; 85025; 85610; 85730; 71046; 99285; 96365; 96375 ×3; J2270; J2405; J3475; J1885

== ENCOUNTER → 2022-01-14 | Outpatient (CLI) | payer OTHER ==
[2022-01-14 13:03] VITALS: BP 127/87; PULSE 102; TEMP 98.4; BMI 45.8
--- NOTE | 2022-01-14 14:09 | P.BASOAP ---
Subjective Progress Note Date: 01/14/22 She has lost weight from 266 pounds to 251 pounds. She is looking into the sleeve. Plan for additional documentation. Objective - Vital Signs Vital signs: Vital Signs Temp 98.4 F 01/14/22 12:56 Pulse 102 H 01/14/22 12:56 Resp BP 127/87 01/14/22 12:56 Pulse Ox FiO2 Intake & Output 01/13/22 01/14/22 01/14/22 18:59 06:59 18:59 Weight 113.852 kg Assessment/Plan Plan: Date: 01/14/22 Initial Weight: 246 kg Initial BMI: 99.1 Current Weight: 113.852 kg Current BMI: 45.8 Type of Surgery: Total Volume in Band: Previous Volume: Volume Removed: Volume Added: Band Size:
== END | disposition home or self-care (01) ==
LOC: BARWHC3 12:31
PROVIDERS: ATTEND Surgery Plastic and Reconstructive Surgery
DX: E66.01 Morbid (severe) obesity due to excess calories (principal); Z68.45 Body mass index [BMI] 70 or greater, adult
CPT/HCPCS: 99211

== ENCOUNTER 2022-02-06 20:57 | Observation (INO) | payer OTHER ==
--- NOTE | 2022-02-06 22:14 | XR ---
EXAMINATION TYPE: XR KUB DATE OF EXAM: 02/06/2022 9:38 PM CLINICAL HISTORY: Abdominal pain. History of irritable bowel syndrome. TECHNIQUE: Two Upright KUB images of the abdomen are obtained. COMPARISON: CT abdomen and pelvis January 21, 2022. FINDINGS: Scattered gas is seen in non-distended small bowel loops. Gas and fecal material is seen in non-distended colon. Cholecystectomy clips are redemonstrated. The lung bases remain clear. No free air. IMPRESSION: Overall nonobstructive bowel gas pattern redemonstrated. No significant change from recent CT.
[2022-02-07] MEDS ORDERED: ONDANSETRON 4 MG/2 ML VIAL IVP STA (01:35)
[2022-02-07] MEDS ORDERED: MORPHINE SULFATE 4 MG/ML SYRINGE IV STA (01:35)
[2022-02-07] MEDS ORDERED: SODIUM CHLORIDE 0.9% 1,000 ML IV STA (01:35)
--- NOTE | 2022-02-07 01:36 | ED ---
Abdominal Pain HPI - General Chief Complaint: Abdominal Pain Stated Complaint: Abdominal pain Time Seen by Provider: 02/07/22 01:03 Source: patient, family, EMS, RN notes reviewed, old records reviewed Mode of arrival: EMS Limitations: no limitations - History of Present Illness Initial Comments: This is a 51-year-old female to the emergency department for evaluation today. Patient presented for evaluation regards to severe abdominal pain history of same. Diagnosed with irritable bowel syndrome. Patient has history of irritable bowel history of bowel resection : Hysterectomy. Patient recently had hospitalization for this similar abdominal pain. No fevers. Decreased appetite and is not eating well. Patient had normal bowel movement today MD Complaint: abdominal pain -: days(s) Location: suprapubic Radiation: epigastric, suprapubic Migration to: bilateral flank Severity scale (1-10): 9 Quality: sharp Consistency: constant Improves With: nothing Worsens With: eating Context: recent surgery/procedure (Strong history of surgery) Associated Symptoms: nausea Treatments Prior to Arrival: other (Bentyl) - Related Data Home Medications Medication Instructions Recorded Confirmed Omeprazole [PriLOSEC] 20 mg PO DAILY 01/12/19 01/21/22 Levothyroxine Sodium [Synthroid] 150 mcg PO DAILY 11/10/19 01/21/22 Empagliflozin [Jardiance] 25 mg PO DAILY 12/11/20 01/21/22 Topiramate [Topamax] 100 mg PO DAILY 12/11/20 01/21/22 metFORMIN HCL [Glucophage] 1,000 mg PO BID 12/11/20 01/21/22 Ergocalciferol (Vitamin D2) 1,250 mcg PO MO 07/14/21 01/21/22 [Drisdol (50,000 Iu)] oxyCODONE-APAP 10-325MG [Percocet 1 tab PO TID PRN 07/21/21 01/21/22 10-325 mg] Fenofibrate Nanocrystallized 145 mg PO DAILY 08/03/21 01/21/22 [Fenofibrate] Dicyclomine [Bentyl] 20 mg PO QID 08/25/21 01/21/22 Insulin Regular [HumuLIN R] 45 units SQ AC-SUPPER 10/16/21 01/21/22 Insulin Regular [HumuLIN R] 110 units SQ AC-BRKFST 10/16/21 01/21/22 Prazosin HCl 2 mg PO HS 10/16/21 01/21/22 Prazosin [Minipress] 1 mg PO HS 10/16/21 01/21/22 Venlafaxine HCl ER [Effexor Xr] 75 mg PO BID 10/16/21 01/21/22 Cariprazine HCl [Vraylar] 4.5 mg PO DAILY 01/21/22 01/21/22 Dulaglutide [Trulicity] 4.5 mg SQ WE 01/21/22 01/21/22 Furosemide [Lasix] 20 mg PO DAILY 01/21/22 01/21/22 Ibuprofen [Motrin] 800 mg PO Q8H PRN 01/21/22 01/21/22 Magnesium Oxide 400 mg PO DAILY 01/21/22 01/21/22 Meclizine HCl 25 mg PO BID PRN 01/21/22 01/21/22 Metoprolol Succinate [Metoprolol 25 mg PO DAILY 01/21/22 01/21/22 Succinate ER] Potassium Chloride [Klor-Con M20] 20 meq PO DAILY 01/21/22 01/21/22 Spironolactone 25 mg PO DAILY 01/21/22 01/21/22 Triamterene/Hydrochlorothiazid 1 tab PO BID 01/21/22 01/21/22 [Triamterene-Hctz 37.5-25 mg Tb] busPIRone HCl [Buspar] 5 mg PO HS 01/21/22 01/21/22 busPIRone HCl [Buspar] 10 mg PO DAILY 01/21/22 01/21/22 cloNIDine HCL 0.1 mg PO DAILY PRN 01/21/22 01/21/22 Allergies Allergy/AdvReac Type Severity Reaction Status Date / Time bupropion [From Wellbutrin] Allergy Rash/Hives Verified 02/06/22 21:29 cephalexin [From Keflex] Allergy Rash/Hives Verified 02/06/22 21:29 propoxyphene Allergy Rash/Hives Verified 02/06/22 21:29 [From Darvocet-N] sertraline [From Zoloft] Allergy Unknown Verified 02/06/22 21:29 Review of Systems ROS Statement: Those systems with pertinent positive or pertinent negative responses have been documented in the HPI. ROS Other: All systems not noted in ROS Statement are negative. Past Medical History Past Medical History: Diabetes Mellitus, GERD/Reflux, Hyperlipidemia, Thyroid Disorder Additional Past Medical History / Comment(s): hx ventral hernia, frequent uti's,twisted small bowel, HYPOKALEMIA, pancreatitis History of Any Multi-Drug Resistant Organisms: None Reported Past Surgical History: Bowel Resection, Section, Cholecystectomy, Hernia Repair, Hysterectomy, Joint Replacement, Orthopedic Surgery Additional Past Surgical History / Comment(s): bilat knees replaced,. thymus gland removal,. ventral hernia repair w/ mesh. COLONOSCOPY/EGD Past Anesthesia/Blood Transfusion Reactions: No Reported Reaction Additional Past Anesthesia/Blood Transfusion Reaction / Comment(s): no problems with prior blood transfusion in 1994 Past Psychological History: Anxiety, Depression, Panic Disorder, PTSD, Schizoaffective Disorder, Schizophrenia Smoking Status: Never smoker Past Alcohol Use History: None Reported Past Drug Use History: None Reported - Past Family History Mother Family Medical History: Cancer Additional Family Medical History / Comment(s): lung Father Family Medical History: Myocardial Infarction ([place]) Sister(s) Family Medical History: Cancer Additional Family Medical History / Comment(s): breast General Exam General appearance: alert, in no apparent distress, in distress, obese Head exam: Present: atraumatic, normocephalic, normal inspection Eye exam: Present: normal appearance, PERRL, EOMI. Absent: scleral icterus, conjunctival injection, periorbital swelling ENT exam: Present: normal exam, mucous membranes moist Neck exam: Present: normal inspection. Absent: tenderness, meningismus, lymphadenopathy Respiratory exam: Present: normal lung sounds bilaterally. Absent: respiratory distress, wheezes, rales, rhonchi, stridor Cardiovascular Exam: Present: regular rate, normal rhythm, normal heart sounds. Absent: systolic murmur, diastolic murmur, rubs, gallop, clicks GI/Abdominal exam: Present: soft, tenderness, guarding (suprapubic), normal bowel sounds. Absent: distended, rebound, rigid Extremities exam: Present: normal inspection, full ROM, normal capillary refill. Absent: tenderness, pedal edema, joint swelling, calf tenderness Back exam: Present: normal inspection Neurological exam: Present: alert, oriented X3, CN II-XII intact Psychiatric exam: Present: normal affect, normal mood Skin exam: Present: warm, dry, intact, normal color. Absent: rash Course Vital Signs 02/06/22 02/07/22 21:25 01:01 Temperature 98.2 F 97.7 F Pulse Rate 99 94 Respiratory 22 17 Rate Blood Pressure 125/80 126/95 O2 Sat by Pulse 97 97 Oximetry - Reevaluation(s) Reevaluation #1: 02/07/22 01:59 Medical record is reviewed Reevaluation #2: 02/07/22 01:59 Patient's pain is controlled Reevaluation #3: 02/07/22 01:59 Patient informed results and questions answered - Consultations Consultation #1: Spoke with [facility] we will admit this patient Medical Decision Making - Medical Decision Making 3 female with intractable abdominal pain. Patient will be admitted for surgical consult pain control - Lab Data Result diagrams: 02/07/22 01:36 02/07/22 01:36 Lab Results 02/07/22 02/07/22 02/07/22 Range/Units 01:36 01:36 01:36 WBC 7.8 (3.8-10.6) k/uL RBC 4.21 (3.80-5.40) m/uL Hgb 12.2 (11.4-16.0) gm/dL Hct 36.9 (34.0-46.0) % MCV 87.6 (80.0-100.0) fL MCH 28.9 (25.0-35.0) pg MCHC 33.0 (31.0-37.0) g/dL RDW 15.0 (11.5-15.5) % Plt Count 305 (150-450) k/uL MPV 8.6 Neutrophils % 60 % Lymphocytes % 31 % Monocytes % 5 % Eosinophils % 3 % Basophils % 0 % Neutrophils # 4.7 (1.3-7.7) k/uL Lymphocytes # 2.4 (1.0-4.8) k/uL Monocytes # 0.4 (0-1.0) k/uL Eosinophils # 0.2 (0-0.7) k/uL Basophils # 0.0 (0-0.2) k/uL PT 10.1 (9.0-12.0) sec INR 0.9 (<1.2) APTT 23.7 (22.0-30.0) sec Sodium (137-145) mmol/L Potassium (3.5-5.1) mmol/L Chloride (98-107) mmol/L Carbon Dioxide (22-30) mmol/L Anion Gap mmol/L BUN (7-17) mg/dL Creatinine (0.52-1.04) mg/dL Est GFR (CKD-EPI)AfAm (>60 ml/min/1.73 sqM) Est GFR (CKD-EPI)NonAf (>60 ml/min/1.73 sqM) Glucose (74-99) mg/dL Calcium (8.4-10.2) mg/dL Total Bilirubin (0.2-1.3) mg/dL AST (14-36) U/L ALT (4-34) U/L Alkaline Phosphatase (38-126) U/L Total Protein (6.3-8.2) g/dL Albumin (3.5-5.0) g/dL Amylase (30-110) U/L Lipase (23-300) U/L Urine Color Light Yellow Urine Appearance Clear (Clear) Urine pH 8.0 (5.0-8.0) Ur Specific [place] 1.027 (1.001-1.035) Urine Protein Negative (Negative) Urine Glucose (UA) 4+ H (Negative) Urine Ketones Negative (Negative) Urine Blood Negative (Negative) Urine Nitrite Negative (Negative) Urine Bilirubin Negative (Negative) Urine Urobilinogen <2.0 (<2.0) mg/dL Ur Leukocyte Esterase Negative (Negative) 02/07/22 Range/Units 01:36 WBC (3.8-10.6) k/uL RBC (3.80-5.40) m/uL Hgb (11.4-16.0) gm/dL Hct (34.0-46.0) % MCV (80.0-100.0) fL MCH (25.0-35.0) pg MCHC (31.0-37.0) g/dL RDW (11.5-15.5) % Plt Count (150-450) k/uL MPV Neutrophils % % Lymphocytes % % Monocytes % % Eosinophils % % Basophils % % Neutrophils # (1.3-7.7) k/uL Lymphocytes # (1.0-4.8) k/uL Monocytes # (0-1.0) k/uL Eosinophils # (0-0.7) k/uL Basophils # (0-0.2) k/uL PT (9.0-12.0) sec INR (<1.2) APTT (22.0-30.0) sec Sodium 139 (137-145) mmol/L Potassium 3.4 L (3.5-5.1) mmol/L Chloride 106 (98-107) mmol/L Carbon Dioxide 20 L (22-30) mmol/L Anion Gap 13 mmol/L BUN 17 (7-17) mg/dL Creatinine 0.91 (0.52-1.04) mg/dL Est GFR (CKD-EPI)AfAm 85 (>60 ml/min/1.73 sqM) Est GFR (CKD-EPI)NonAf 74 (>60 ml/min/1.73 sqM) Glucose 132 H (74-99) mg/dL Calcium 8.8 (8.4-10.2) mg/dL Total Bilirubin 0.3 (0.2-1.3) mg/dL AST 24 (14-36) U/L ALT 14 (4-34) U/L Alkaline Phosphatase 112 (38-126) U/L Total Protein 6.3 (6.3-8.2) g/dL Albumin 3.9 (3.5-5.0) g/dL Amylase 37 (30-110) U/L Lipase 276 (23-300) U/L Urine Color Urine Appearance (Clear) Urine pH (5.0-8.0) Ur Specific [place] (1.001-1.035) Urine Protein (Negative) Urine Glucose (UA) (Negative) Urine Ketones (Negative) Urine Blood (Negative) Urine Nitrite (Negative) Urine Bilirubin (Negative) Urine Urobilinogen (<2.0) mg/dL Ur Leukocyte Esterase (Negative) - Radiology Data Radiology results: report reviewed (CT abdomen and pelvis is negative for acute disease), image reviewed Disposition Clinical Impression: Abdominal pain, Dehydration, Status post bariatric surgery, Nausea, Irritable bowel syndrome, Abdominal colic Disposition: ADMITTED IP TO THIS [facility] Condition: Fair Is patient prescribed a controlled substance at d/c from ED?: No Referrals: Krystal Meek MD [Primary Care Provider] - 1-2 days Time of Disposition: 03:10
[2022-02-07 02:35] LABS: Basophils % (A) 0 %; Eosinophils # (A) 0.2 k/uL (0-0.7); Eosinophils % (A) 3 %; HCT 36.9 % (34.0-46.0); HGB 12.2 gm/dL (11.4-16.0); Lymphocytes # (A) 2.4 k/uL (1.0-4.8); Lymphocytes % (A) 31 %; MCH 28.9 pg (25.0-35.0); MCV 87.6 fL (80.0-100.0); Mean Platelet Volume 8.6; Monocytes # (A) 0.4 k/uL (0-1.0); Monocytes % (A) 5 %; Neutrophils # (A) 4.7 k/uL (1.3-7.7); Neutrophils % (A) 60 %; Platelet Count 305 k/uL (150-450); RBC 4.21 m/uL (3.80-5.40); WBC 7.8 k/uL (3.8-10.6)
[2022-02-07 02:47] LABS: Albumin 3.9 g/dL (3.5-5.0); Calcium 8.8 mg/dL (8.4-10.2); Potassium 3.4 mmol/L (3.5-5.1); Total Bilirubin 0.3 mg/dL (0.2-1.3); Total Protein 6.3 g/dL (6.3-8.2)
[2022-02-07 02:48] LABS: Appearance,Urine Clear (Clear); Bilirubin,Urine Negative (Negative); Blood,Urine Negative (Negative); Color,Urine Light Yellow; Glucose,Urine (UA) 4+ (Negative); Ketones,Urine Negative (Negative); Leukocyte Esterase,Urine Negative (Negative); Nitrite,Urine Negative (Negative); Protein,Urine Negative (Negative); Specific Gravity,Urine 1.027 (1.001-1.035); Urobilinogen,Urine <2.0 mg/dL (<2.0)
[2022-02-07 02:49] LABS: INR 0.9 (<1.2); Partial Thromboplastin Time 23.7 sec (22.0-30.0); Prothrombin Time 10.1 sec (9.0-12.0)
--- NOTE | 2022-02-07 02:51 | CT ---
EXAMINATION TYPE: CT abdomen pelvis wo con DATE OF EXAM: 02/07/2022 COMPARISON: 01/21/2022 HISTORY: Abdominal pain, hx of IBS. prior on synapse. Hx of bowel resection, cholecystectomy, hystere ctomy, hernia repair. CT DLP: 1439.4 mGycm Automated exposure control for dose reduction was used. Images obtained from the diaphragm to the floor of the pelvis with no contrast. The lung bases are clear. No pleural effusion. Heart size is normal. No pericardial effusion. Liver spleen and stomach pancreas appear intact. There are clips from cholecystectomy. The bile ducts are not dilated. There is no adrenal mass. Kidneys have normal size. No hydronephrosis. Ureters are not dilated. No re troperitoneal adenopathy. The bladder distends smoothly. No inguinal hernia. No free fluid in the pel vis. No pelvic mass. There is some mild fat stranding in the subcutaneous tissues over the lower ante rior abdomen and consistent with surgery. No mesenteric edema. No ascites or free air. No sign of a bowel obstruction. Appendix not seen. There is small upper abdominal fat containing ventral hernia that measures 2 x 1 cm. The lumbar vertebrae have normal alignment. No compression fracture. Disc spaces are fairly normal. B chandler pelvis is intact. The hip joints are intact. Sacroiliac joints are intact. IMPRESSION: No acute abnormality of the abdomen and pelvis. No bowel obstruction. No adverse change compared to o ld exam. There is decrease in the small bowel distention in the upper abdomen compared to old exam.
[2022-02-07] MEDS ORDERED: NALOXONE 0.4 MG/ML 1 ML VIAL IV PRN (03:22)
[2022-02-07] MEDS ORDERED: MORPHINE SULFATE 4 MG/ML SYRINGE IV PRN (03:23)
[2022-02-07] MEDS ORDERED: DICYCLOMINE 10 MG/ML 2 ML AMP IM STA (03:24)
[2022-02-07] MEDS ORDERED: diphenhydrAMINE 50 MG/ML 1 ML VIAL IVP STA (03:24)
[2022-02-07] MEDS ORDERED: METOCLOPRAMIDE 5 MG/ML 2 ML VIAL IVP STA (03:24)
[2022-02-07] MEDS: SODIUM CHLORIDE 0.9% 1,000 ML IV SCH ×3 (03:26→20:45)
[2022-02-07 07:18] LABS: Glucose,Whole Blood 115 mg/dL (70-110)
[2022-02-07] MEDS: PANTOPRAZOLE 40 MG/10 ML VIAL IV SCH (08:11)
[2022-02-07] MEDS ORDERED: PANTOPRAZOLE 40 MG/10 ML VIAL IV SCH (09:00)
--- NOTE | 2022-02-07 09:18 | P.GSHP ---
History of Present Illness H&P Date: 02/07/22 Chief Complaint: Chronic abdominal pain Is a 51-year-old female who has been through emergency complaints of chronic abdominal pain. Patient has had multiple consultations for chronic abdominal pain. Patient has had for surgery with Dr. Geronimo last 18 months for abdomin al pain and lysis of adhesions. Patient is morbidly obese. BMI is 45. She denies any nausea or vomiting currently Past Medical History Past Medical History: Diabetes Mellitus, GERD/Reflux, Hyperlipidemia, Thyroid Disorder Additional Past Medical History / Comment(s): hx ventral hernia, frequent uti's,twisted small bowel, HYPOKALEMIA, pancreatitis History of Any Multi-Drug Resistant Organisms: None Reported Past Surgical History: Bowel Resection, Section, Cholecystectomy, Hernia Repair, Hysterectomy, Joint Replacement, Orthopedic Surgery Additional Past Surgical History / Comment(s): bilat knees replaced,. thymus gland removal,. ventral hernia repair w/ mesh. COLONOSCOPY/EGD Past Anesthesia/Blood Transfusion Reactions: No Reported Reaction Additional Past Anesthesia/Blood Transfusion Reaction / Comment(s): no problems with prior blood transfusion in 1994 Past Psychological History: Anxiety, Depression, Panic Disorder, PTSD, Schizoaffective Disorder, Schizophrenia Smoking Status: Never smoker Past Alcohol Use History: None Reported Past Drug Use History: None Reported - Past Family History Mother Family Medical History: Cancer Additional Family Medical History / Comment(s): lung Father Family Medical History: Myocardial Infarction ([place]) Sister(s) Family Medical History: Cancer Additional Family Medical History / Comment(s): breast Medications and Allergies Home Medications Medication Instructions Recorded Confirmed Type Omeprazole [PriLOSEC] 20 mg PO DAILY 01/12/19 01/21/22 History Levothyroxine Sodium [Synthroid] 150 mcg PO DAILY 11/10/19 01/21/22 History Empagliflozin [Jardiance] 25 mg PO DAILY 12/11/20 01/21/22 History Topiramate [Topamax] 100 mg PO DAILY 12/11/20 01/21/22 History metFORMIN HCL [Glucophage] 1,000 mg PO BID 12/11/20 01/21/22 History Ergocalciferol (Vitamin D2) 1,250 mcg PO MO 07/14/21 01/21/22 History [Drisdol (50,000 Iu)] oxyCODONE-APAP 10-325MG [Percocet 1 tab PO TID PRN 07/21/21 01/21/22 History 10-325 mg] Fenofibrate Nanocrystallized 145 mg PO DAILY 08/03/21 01/21/22 History [Fenofibrate] Dicyclomine [Bentyl] 20 mg PO QID 08/25/21 01/21/22 History Insulin Regular [HumuLIN R] 45 units SQ AC-SUPPER 10/16/21 01/21/22 History Insulin Regular [HumuLIN R] 110 units SQ AC-BRKFST 10/16/21 01/21/22 History Prazosin HCl 2 mg PO HS 10/16/21 01/21/22 History Prazosin [Minipress] 1 mg PO HS 10/16/21 01/21/22 History Venlafaxine HCl ER [Effexor Xr] 75 mg PO BID 10/16/21 01/21/22 History Cariprazine HCl [Vraylar] 4.5 mg PO DAILY 01/21/22 01/21/22 History Dulaglutide [Trulicity] 4.5 mg SQ WE 01/21/22 01/21/22 History Furosemide [Lasix] 20 mg PO DAILY 01/21/22 01/21/22 History Ibuprofen [Motrin] 800 mg PO Q8H PRN 01/21/22 01/21/22 History Magnesium Oxide 400 mg PO DAILY 01/21/22 01/21/22 History Meclizine HCl 25 mg PO BID PRN 01/21/22 01/21/22 History Metoprolol Succinate [Metoprolol 25 mg PO DAILY 01/21/22 01/21/22 History Succinate ER] Potassium Chloride [Klor-Con M20] 20 meq PO DAILY 01/21/22 01/21/22 History Spironolactone 25 mg PO DAILY 01/21/22 01/21/22 History Triamterene/Hydrochlorothiazid 1 tab PO BID 01/21/22 01/21/22 History [Triamterene-Hctz 37.5-25 mg Tb] busPIRone HCl [Buspar] 5 mg PO HS 01/21/22 01/21/22 History busPIRone HCl [Buspar] 10 mg PO DAILY 01/21/22 01/21/22 History cloNIDine HCL 0.1 mg PO DAILY PRN 01/21/22 01/21/22 History Allergies Allergy/AdvReac Type Severity Reaction Status Date / Time bupropion [From Wellbutrin] Allergy Rash/Hives Verified 02/06/22 21:29 cephalexin [From Keflex] Allergy Rash/Hives Verified 02/06/22 21:29 propoxyphene Allergy Rash/Hives Verified 02/06/22 21:29 [From Darvocet-N] sertraline [From Zoloft] Allergy Unknown Verified 02/06/22 21:29 Surgical - Exam Vital Signs Temp Pulse Resp BP Pulse Ox 98.2 F 99 22 125/80 97 02/06/22 21:25 02/06/22 21:25 02/06/22 21:25 02/06/22 21:25 02/06/22 21:25 - General well developed, well nourished, no distress - Eyes PERRL - ENT normal pinna - Neck no masses - Respiratory normal expansion - Cardiovascular Rhythm: regular - Abdomen Minimal tenderness throughout. Abdomen: soft Results - Labs 02/07/22 01:36 02/07/22 01:36 Abnormal Lab Results - Last 24 Hours (Table) 02/07/22 02/07/22 02/07/22 Range/Units 01:36 01:36 07:17 Potassium 3.4 L (3.5-5.1) mmol/L Carbon Dioxide 20 L (22-30) mmol/L Glucose 132 H (74-99) mg/dL POC Glucose (mg/dL) 115 H (70-110) mg/dL Urine Glucose (UA) 4+ H (Negative) Diabetes panel 02/07/22 Range/Units 01:36 Sodium 139 (137-145) mmol/L Potassium 3.4 L (3.5-5.1) mmol/L Chloride 106 (98-107) mmol/L Carbon Dioxide 20 L (22-30) mmol/L BUN 17 (7-17) mg/dL Creatinine 0.91 (0.52-1.04) mg/dL Glucose 132 H (74-99) mg/dL Calcium 8.8 (8.4-10.2) mg/dL AST 24 (14-36) U/L ALT 14 (4-34) U/L Alkaline Phosphatase 112 (38-126) U/L Total Protein 6.3 (6.3-8.2) g/dL Albumin 3.9 (3.5-5.0) g/dL Calcium panel 02/07/22 Range/Units 01:36 Calcium 8.8 (8.4-10.2) mg/dL Albumin 3.9 (3.5-5.0) g/dL Pituitary panel 02/07/22 Range/Units 01:36 Sodium 139 (137-145) mmol/L Potassium 3.4 L (3.5-5.1) mmol/L Chloride 106 (98-107) mmol/L Carbon Dioxide 20 L (22-30) mmol/L BUN 17 (7-17) mg/dL Creatinine 0.91 (0.52-1.04) mg/dL Glucose 132 H (74-99) mg/dL Calcium 8.8 (8.4-10.2) mg/dL Adrenal panel 02/07/22 Range/Units 01:36 Sodium 139 (137-145) mmol/L Potassium 3.4 L (3.5-5.1) mmol/L Chloride 106 (98-107) mmol/L Carbon Dioxide 20 L (22-30) mmol/L BUN 17 (7-17) mg/dL Creatinine 0.91 (0.52-1.04) mg/dL Glucose 132 H (74-99) mg/dL Calcium 8.8 (8.4-10.2) mg/dL Total Bilirubin 0.3 (0.2-1.3) mg/dL AST 24 (14-36) U/L ALT 14 (4-34) U/L Alkaline Phosphatase 112 (38-126) U/L Total Protein 6.3 (6.3-8.2) g/dL Albumin 3.9 (3.5-5.0) g/dL - Imaging CT scan - abdomen: report reviewed (No significant abnormalities) Assessment and Plan Assessment: Chronic abdominal pain. Patient is requesting more pain meds. I'm unsure if she has some sort of pain seeking behavior. The patient will be observed. We'll place her on clear liquid diet.
[2022-02-07] MEDS: ONDANSETRON 4 MG/2 ML VIAL IVP PRN ×2 (11:15→17:51)
[2022-02-07] MEDS: HYDROmorphone 1 MG/ML 1 ML SYRINGE IVP PRN ×2 (11:15→17:50)
[2022-02-07 12:14] LABS: Glucose,Whole Blood 157 mg/dL (70-110)
[2022-02-07 17:16] LABS: Glucose,Whole Blood 121 mg/dL (70-110)
[2022-02-07] MEDS ORDERED: cloNIDine HCL 0.1 MG TAB PO PRN (17:16)
[2022-02-07] MEDS ORDERED: MECLIZINE 25 MG TAB PO PRN (17:16)
[2022-02-07] MEDS ORDERED: LORazepam 1 MG TAB PO PRN (17:16)
[2022-02-07] MEDS ORDERED: DEXTROSE 50% SYRINGE 50 ML IVP PRN ×2 (17:27)
[2022-02-07] MEDS: INSULIN ASPART (NovoLOG) 100 UNIT/ML VIAL SQ SCH ×2 (17:39→20:45)
[2022-02-07] MEDS: PANTOPRAZOLE 40 MG TABLET PO SCH (17:51)
[2022-02-07] MEDS: MAGNESIUM OXIDE 400 MG TAB PO SCH (17:52)
[2022-02-07] MEDS: POTASSIUM CHLORIDE ER 20 MEQ TAB.ER PO SCH (17:52)
[2022-02-07] MEDS: METOPROLOL SUCCINATE (ER) 25 MG TAB.ER.24H PO SCH (18:13)
[2022-02-07] MEDS: DICYCLOMINE 20 MG TAB PO SCH ×2 (18:42→20:46)
[2022-02-07] MEDS: TOPIRAMATE 100 MG TAB PO SCH (18:42)
[2022-02-07 20:42] LABS: Glucose,Whole Blood 183 mg/dL (70-110)
[2022-02-07] MEDS: busPIRone HCl 5 MG TAB PO SCH (20:45)
[2022-02-07] MEDS: PRAZOSIN 1 MG CAP PO SCH ×2 (20:46)
[2022-02-07] MEDS: VENLAFAXINE HCL ER 75 MG CAP PO SCH (20:46)
[2022-02-08] MEDS: HYDROmorphone 1 MG/ML 1 ML SYRINGE IVP PRN ×4 (04:53→20:42)
[2022-02-08] MEDS: LEVOTHYROXINE 75 MCG TAB PO SCH ×2 (05:33→08:46)
[2022-02-08] MEDS: SODIUM CHLORIDE 0.9% 1,000 ML IV SCH ×3 (05:33→20:42)
[2022-02-08 07:33] LABS: Glucose,Whole Blood 151 mg/dL (70-110)
[2022-02-08] MEDS: PANTOPRAZOLE 40 MG/10 ML VIAL IV SCH (08:45)
[2022-02-08] MEDS: INSULIN ASPART (NovoLOG) 100 UNIT/ML VIAL SQ SCH ×4 (08:45→20:41)
[2022-02-08] MEDS: DICYCLOMINE 20 MG TAB PO SCH ×4 (08:46→20:42)
[2022-02-08] MEDS: MAGNESIUM OXIDE 400 MG TAB PO SCH (08:46)
[2022-02-08] MEDS: FUROSEMIDE 20 MG TAB PO SCH (08:46)
[2022-02-08] MEDS: VENLAFAXINE HCL ER 75 MG CAP PO SCH ×2 (08:47→20:42)
[2022-02-08] MEDS: TOPIRAMATE 100 MG TAB PO SCH (08:47)
[2022-02-08] MEDS: METOPROLOL SUCCINATE (ER) 25 MG TAB.ER.24H PO SCH (08:47)
[2022-02-08] MEDS: POTASSIUM CHLORIDE ER 20 MEQ TAB.ER PO SCH (08:47)
[2022-02-08] MEDS: SPIRONOLACTONE 25 MG TAB PO SCH (08:47)
[2022-02-08] MEDS ORDERED: MAGNESIUM OXIDE 400 MG TAB PO SCH (09:00)
[2022-02-08] MEDS ORDERED: POTASSIUM CHLORIDE ER 20 MEQ TAB.ER PO SCH (09:00)
[2022-02-08 09:05] LABS: Basophils # (A) 0.02 X 10*3/uL (0.00-0.10); Basophils % (A) 0.3 %; Eosinophils # (A) 0.13 X 10*3/uL (0.04-0.35); Eosinophils % (A) 2.1 %; HCT 38.1 % (37.2-46.3); HGB 11.8 g/dL (12.0-15.0); Immature Grans, Automated 0.3 %; Lymphocytes # (A) 1.59 X 10*3/uL (0.90-5.00); Lymphocytes % (A) 26.2 %; MCH 27.9 pg (27.0-32.0); MCV 90.1 fL (80.0-97.0); Mean Platelet Volume 10.9 fL (9.5-12.2); Monocytes # (A) 0.32 X 10*3/uL (0.20-1.00); Monocytes % (A) 5.3 %; NRBC Per 100 WBC 0 /100 WBCS (0.0-0.0); Neutrophils # (A) 3.98 X 10*3/uL (1.80-7.70); Neutrophils % (A) 65.8 %; Platelet Count 288 X 10*3/uL (140-440); RBC 4.23 X 10*6/uL (4.10-5.20); RDW 14.4 % (11.5-14.5); WBC 6.06 X 10*3/uL (4.50-10.00)
[2022-02-08 09:17] LABS: ALT 14 U/L (8-44); AST 24 U/L (13-35); African American GFR (CKD) 99.6 (60.0-200.0); Albumin 3.7 g/dL (3.8-4.9); Albumin/Globulin Ratio 1.68 (1.60-3.17); Alkaline Phosphatase 85 U/L (41-126); BUN/Creat Ratio 15.63 Ratio (12.00-20.00); Blood Urea Nitrogen 12.5 mg/dL (9.0-27.0); Calcium 8.8 mg/dL (8.7-10.3); Carbon Dioxide 24.2 mmol/L (20.0-27.5); Chloride 110 mmol/L (96-109); Globulin 2.2 g/dL (1.6-3.3); Glucose 115 mg/dL (70-110); Lipase 66 U/L (14-63); Phosphorus 3.8 mg/dL (2.4-5.1); Potassium 4.3 mmol/L (3.5-5.5); Sodium 142 mmol/L (135-145); Total Bilirubin <0.15 mg/dL (0.30-1.20); Total Protein 5.9 g/dL (6.2-8.2)
[2022-02-08] MEDS: PANTOPRAZOLE 40 MG TABLET PO SCH (09:38)
--- NOTE | 2022-02-08 10:48 | P.PN ---
Progress Note - Text Progress Note Date: 02/08/22 Patient states her pain is slightly improved from yesterday. On exam vital signs are stable. Abdomen soft. Chronic abdominal pain. Patient will start on regular diet. Hopefully discharge home tomorrow.
[2022-02-08 12:30] LABS: Glucose,Whole Blood 182 mg/dL (70-110)
[2022-02-08] MEDS: ONDANSETRON 4 MG/2 ML VIAL IVP PRN ×2 (12:44→20:42)
[2022-02-08 17:12] LABS: Glucose,Whole Blood 151 mg/dL (70-110)
[2022-02-08 20:40] LABS: Glucose,Whole Blood 191 mg/dL (70-110)
[2022-02-08] MEDS: busPIRone HCl 5 MG TAB PO SCH (20:41)
[2022-02-08] MEDS: PRAZOSIN 1 MG CAP PO SCH ×2 (20:42)
[2022-02-09] MEDS: HYDROmorphone 1 MG/ML 1 ML SYRINGE IVP PRN ×2 (02:00→08:45)
[2022-02-09 07:37] LABS: Glucose,Whole Blood 160 mg/dL (70-110)
[2022-02-09 08:23] VITALS: BP 122/69; PULSE 92; RESP 18; TEMP 97.8
[2022-02-09] MEDS: ONDANSETRON 4 MG/2 ML VIAL IVP PRN (08:47)
[2022-02-09] MEDS: FUROSEMIDE 20 MG TAB PO SCH (08:48)
[2022-02-09] MEDS: VENLAFAXINE HCL ER 75 MG CAP PO SCH (08:48)
[2022-02-09] MEDS: TOPIRAMATE 100 MG TAB PO SCH (08:48)
[2022-02-09] MEDS: INSULIN ASPART (NovoLOG) 100 UNIT/ML VIAL SQ SCH ×2 (08:48→12:47)
[2022-02-09] MEDS: POTASSIUM CHLORIDE ER 20 MEQ TAB.ER PO SCH (08:49)
[2022-02-09] MEDS: SPIRONOLACTONE 25 MG TAB PO SCH (08:49)
[2022-02-09] MEDS: METOPROLOL SUCCINATE (ER) 25 MG TAB.ER.24H PO SCH (08:49)
[2022-02-09] MEDS: MAGNESIUM OXIDE 400 MG TAB PO SCH (08:49)
[2022-02-09] MEDS: DICYCLOMINE 20 MG TAB PO SCH ×2 (08:49→12:47)
[2022-02-09] MEDS: LEVOTHYROXINE 75 MCG TAB PO SCH (08:49)
[2022-02-09] MEDS: PANTOPRAZOLE 40 MG TABLET PO SCH (08:49)
[2022-02-09] MEDS: SODIUM CHLORIDE 0.9% 1,000 ML IV SCH ×2 (08:50→12:47)
[2022-02-09] MEDS ORDERED: FENOFIBRATE 160 MG TAB PO SCH (09:00)
[2022-02-09] MEDS ORDERED: NON FORMULARY DRUG (Cariprazine Hcl [Vraylar] 4.5 MG Capsule) PO SCH (09:00)
[2022-02-09 12:33] LABS: Glucose,Whole Blood 151 mg/dL (70-110)
--- NOTE | 2022-02-09 13:28 | P.DS ---
Providers Date of admission: 02/07/22 03:22 Expected date of discharge: 02/09/22 Attending physician: Yarelis Hernandes Primary care physician: Krystal Zuni Hospital Course: Discharge diagnosis 1. Chronic Abdominal pain 2. IBS 3. Dehydration 4. Hypokalemia resolved 5. Diabetes mellitus type 2 Hospital course This is a 51-year-old female presented to the hospital with complaints of lower abdominal pain and diarrhea. She was recently admitted at [facility] and diagnosed with irritable bowel syndrome. Patient reports that she has been taking Bentyl. Patient presented back to the hospital with complaints of abdominal pain with vomiting and diarrhea. She was given IV fluids. Computed tomography scan abdomen and pelvis was negative. Her diarrhea has resolved. She is tolerating regular diet. She has been up and ambulating. She is afebrile. Recommend the patient continues the Bentyl. Also recommended vibrating massage ball for pain. Patient is stable for discharge. Physician Senior Climate Advisor note has been reviewed by physician. Signing provider agrees with the documented findings, assessment, and plan of care. As above. Patient seen and evaluated with MANAGER USER INTERFACE. Overall, patient symptoms improved after IV fluid hydration. She is taking Bentyl at home. Adjuncts for pain management including myofascial massage ball described. Patient advised to follow up in the bariatric center as she is seeking to undergo weight loss surgery. Recheck of labs including hemoglobin A1c less than 9.1 at 7.6%. Patient verbalized understanding of discharge instructions. Patient Condition at Discharge: Stable Plan - Discharge Summary Discharge Rx Participant: No New Discharge Prescriptions: Continue Omeprazole [PriLOSEC] 20 mg PO DAILY Levothyroxine Sodium [Synthroid] 150 mcg PO DAILY Topiramate [Topamax] 100 mg PO DAILY metFORMIN HCL [Glucophage] 1,000 mg PO BID Empagliflozin [Jardiance] 25 mg PO DAILY oxyCODONE-APAP 10-325MG [Percocet 10-325 mg] 1 tab PO TID PRN PRN Reason: Pain Insulin Regular [HumuLIN R] 100 units SQ AC-BRKFST Prazosin [Minipress] 1 mg PO HS Prazosin HCl 2 mg PO HS Triamterene/Hydrochlorothiazid [Triamterene-Hctz 37.5-25 mg Tb] 1 tab PO BID Potassium Chloride [Klor-Con M20] 20 meq PO DAILY Furosemide [Lasix] 20 mg PO DAILY Cariprazine HCl [Vraylar] 4.5 mg PO DAILY busPIRone HCL 30 mg PO DAILY Ergocalciferol (Vitamin D2) [Drisdol (50,000 Iu)] 1,250 mcg PO MO Fenofibrate Nanocrystallized [Fenofibrate] 145 mg PO DAILY Dicyclomine [Bentyl] 20 mg PO QID Insulin Regular [HumuLIN R] 50 units SQ AC-SUPPER Venlafaxine HCl ER [Effexor XR] 75 mg PO BID Dulaglutide [Trulicity] 4.5 mg SQ WE Spironolactone 25 mg PO DAILY Metoprolol Succinate [Metoprolol Succinate ER] 25 mg PO DAILY Meclizine HCl 25 mg PO BID PRN PRN Reason: Vertigo Magnesium Oxide 400 mg PO DAILY Ibuprofen [Motrin] 800 mg PO Q8H PRN PRN Reason: Pain cloNIDine HCL 0.1 mg PO DAILY PRN PRN Reason: Anxiety busPIRone HCL 15 mg PO HS LORazepam [Ativan] 1 mg PO TID PRN PRN Reason: Anxiety Discharge Medication List Omeprazole [PriLOSEC] 20 mg PO DAILY 01/12/19 [History] Levothyroxine Sodium [Synthroid] 150 mcg PO DAILY 11/10/19 [History] Empagliflozin [Jardiance] 25 mg PO DAILY 12/11/20 [History] Topiramate [Topamax] 100 mg PO DAILY 12/11/20 [History] metFORMIN HCL [Glucophage] 1,000 mg PO BID 12/11/20 [History] Ergocalciferol (Vitamin D2) [Drisdol (50,000 Iu)] 1,250 mcg PO MO 07/14/21 [History] oxyCODONE-APAP 10-325MG [Percocet 10-325 mg] 1 tab PO TID PRN 07/21/21 [History] Fenofibrate Nanocrystallized [Fenofibrate] 145 mg PO DAILY 08/03/21 [History] Dicyclomine [Bentyl] 20 mg PO QID 08/25/21 [History] Insulin Regular [HumuLIN R] 50 units SQ AC-SUPPER 10/16/21 [History] Insulin Regular [HumuLIN R] 100 units SQ AC-BRKFST 10/16/21 [History] Prazosin HCl 2 mg PO HS 10/16/21 [History] Prazosin [Minipress] 1 mg PO HS 10/16/21 [History] Venlafaxine HCl ER [Effexor XR] 75 mg PO BID 10/16/21 [History] Cariprazine HCl [Vraylar] 4.5 mg PO DAILY 01/21/22 [History] Dulaglutide [Trulicity] 4.5 mg SQ WE 01/21/22 [History] Furosemide [Lasix] 20 mg PO DAILY 01/21/22 [History] Ibuprofen [Motrin] 800 mg PO Q8H PRN 01/21/22 [History] Magnesium Oxide 400 mg PO DAILY 01/21/22 [History] Meclizine HCl 25 mg PO BID PRN 01/21/22 [History] Metoprolol Succinate [Metoprolol Succinate ER] 25 mg PO DAILY 01/21/22 [History] Potassium Chloride [Klor-Con M20] 20 meq PO DAILY 01/21/22 [History] Spironolactone 25 mg PO DAILY 01/21/22 [History] Triamterene/Hydrochlorothiazid [Triamterene-Hctz 37.5-25 mg Tb] 1 tab PO BID 01/21/22 [History] cloNIDine HCL 0.1 mg PO DAILY PRN 01/21/22 [History] LORazepam [Ativan] 1 mg PO TID PRN 02/07/22 [History] busPIRone HCL 15 mg PO HS 02/07/22 [History] busPIRone HCL 30 mg PO DAILY 02/07/22 [History] Follow up Appointment(s)/Referral(s): Krystal Meek MD [Primary Care Provider] - 1-2 days [place], [place] [NON-STAFF] - 02/18/22 Activity/Diet/Wound Care/Special Instructions: Recommend that patient gets vibrating massage ball Discharge Disposition: HOME SELF-CARE
[2022-02-09] MEDS ORDERED: ERGOCALCIFEROL 1,250 MCG (50,000 IU) CAPSULE PO SCH (17:16)
== END 2022-02-09 14:22 | disposition home or self-care (01) ==
LOC: EC 20:57 → 6NMEDSUR 02-07 03:22
PROVIDERS: ADMIT Surgery Plastic and Reconstructive Surgery; ATTEND Surgery Plastic and Reconstructive Surgery
DX: G89.29 Other chronic pain (principal); R10.30 Lower abdominal pain, unspecified; K58.0 Irritable bowel syndrome with diarrhea; E86.0 Dehydration; E87.6 Hypokalemia; E11.9 Type 2 diabetes mellitus without complications; E78.5 Hyperlipidemia, unspecified; K21.9 Gastro-esophageal reflux disease without esophagitis; E07.9 Disorder of thyroid, unspecified; F25.9 Schizoaffective disorder, unspecified; F32.A Depression, unspecified; F41.0 Panic disorder [episodic paroxysmal anxiety]; F43.10 Post-traumatic stress disorder, unspecified; E66.01 Morbid (severe) obesity due to excess calories; Z68.42 Body mass index [BMI] 45.0-49.9, adult; Z79.890 Hormone replacement therapy; Z79.84 Long term (current) use of oral hypoglycemic drugs; Z79.4 Long term (current) use of insulin; Z79.899 Other long term (current) drug therapy; Z88.1 Allergy status to other antibiotic agents; Z88.5 Allergy status to narcotic agent; Z88.8 Allergy status to other drugs, medicaments and biological substances; Z87.440 Personal history of urinary (tract) infections; Z98.891 History of uterine scar from previous surgery; Z96.653 Presence of artificial knee joint, bilateral; Z98.84 Bariatric surgery status; Z90.49 Acquired absence of other specified parts of digestive tract; Z90.89 Acquired absence of other organs; Z90.710 Acquired absence of both cervix and uterus; Z98.890 Other specified postprocedural states; Z82.49 Family history of ischemic heart disease and other diseases of the circulatory system; Z80.3 Family history of malignant neoplasm of breast; Z80.1 Family history of malignant neoplasm of trachea, bronchus and lung
CPT/HCPCS: 96376 ×3; 96361 ×4; 96375 ×2; 96372; 96374; 99285; 36415; 80053 ×2; 82150; 83605; 83690 ×2; 83735; 84100; 85025 ×2; 85610; 85730; 81003; 83036; 74018; 74176; G0378 ×3; J2270; J1200; J0500; J2765; J2405 ×3; J1170 ×3; C9113 ×2

== ENCOUNTER → 2022-02-23 | Outpatient (CLI) | payer OTHER ==
[2022-02-23 11:13] VITALS: BMI 43.9
== END ==
LOC: BARWHC3 08:11
PROVIDERS: ATTEND Surgery Plastic and Reconstructive Surgery
DX: E66.01 Morbid (severe) obesity due to excess calories (principal); Z68.41 Body mass index [BMI] 40.0-44.9, adult; Z71.3 Dietary counseling and surveillance
CPT/HCPCS: 97804

== ENCOUNTER → 2022-02-26 | Outpatient (CLI) | payer OTHER | END | disposition home or self-care (01) | LOC: LABWHC1 13:15 | PROVIDERS: ATTEND Surgery Plastic and Reconstructive Surgery | DX: Z71.51 Drug abuse counseling and surveillance of drug abuser (principal) | CPT/HCPCS: 80307; G0480; G0482; 80323 ==

== ENCOUNTER → 2022-03-02 | Outpatient (CLI) | payer OTHER ==
[2022-03-02 18:24] LABS: % Iron Saturation 7.37 (12.00-45.00); Ferritin 20.8 ng/mL (10.0-291.0)
== END | disposition home or self-care (01) ==
LOC: LABPAT 10:54
PROVIDERS: ATTEND Surgery Plastic and Reconstructive Surgery
DX: E66.01 Morbid (severe) obesity due to excess calories (principal); Z71.51 Drug abuse counseling and surveillance of drug abuser; D50.8 Other iron deficiency anemias; K91.2 Postsurgical malabsorption, not elsewhere classified; E44.0 Moderate protein-calorie malnutrition
CPT/HCPCS: 82728; 83540; 83550; 84443; 36415; G0480; 80323

== ENCOUNTER → 2022-03-31 | Outpatient (CLI) | payer OTHER ==
[2022-03-31 14:51] LABS: Chol/HDL Ratio 3.96 Ratio
== END | disposition home or self-care (01) ==
LOC: LABWHC1 10:18
PROVIDERS: ATTEND Family Medicine
DX: E11.65 Type 2 diabetes mellitus with hyperglycemia (principal); E03.9 Hypothyroidism, unspecified
CPT/HCPCS: 36415; 80061; 83036; 84439; 84443

== ENCOUNTER → 2022-05-15 | Outpatient (CLI) | payer OTHER ==
--- NOTE | 2022-05-15 21:03 | MR ---
EXAMINATION TYPE: MR lumbar spine wo con DATE OF EXAM: 05/15/2022 6:57 PM COMPARISON: CT 02/07/2022 radiograph 03/23/2022. 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 IV Contrast: None. FINDINGS: Alignment: The lumbar vertebral bodies have preserved heights and alignment. Cord: The conus medullaris and the distal spinal cord appear unremarkable with regards to their signa l intensity and morphology. Bones/Discs: Bone signal is within normal limits. Multilevel degenerative disc disease is noted and most pronounced at the L4-L5. Intervertebral disc signal is maintained. L1-L2: No evidence of significant spinal canal stenosis or neural foraminal stenosis. L2-L3: No evidence of significant spinal canal stenosis or neural foraminal stenosis. L3-L4: Disc bulge with facet joint arthropathy result in no significant spinal canal stenosis there i s mild bilateral neural foraminal stenosis. L4-L5: Disc bulge with facet joint arthropathy result in moderate spinal canal and mild to moderate b ilateral neural foraminal stenosis. L5-S1: No evidence of significant spinal canal stenosis or neural foraminal stenosis. Other findings: None. IMPRESSION: 1. No definitive evidence of disc herniation or significant spinal canal stenosis. 2. L4-L5 moderate spinal canal stenosis secondary to disc bulging.
== END | disposition home or self-care (01) ==
LOC: RADMRIMAIN 17:56
PROVIDERS: ATTEND Nurse Practitioner Family
DX: M47.26 Other spondylosis with radiculopathy, lumbar region (principal); M51.16 Intervertebral disc disorders with radiculopathy, lumbar region; M48.061 Spinal stenosis, lumbar region without neurogenic claudication
CPT/HCPCS: 72148

== ENCOUNTER 2022-06-10 23:43 | Emergency (ER) | payer OTHER ==
[2022-06-10] MEDS ORDERED: SODIUM CHLORIDE 0.9% 1,000 ML IV STA (23:58)
[2022-06-10] MEDS ORDERED: ONDANSETRON 4 MG/2 ML VIAL IVP STA (23:58)
[2022-06-10] MEDS ORDERED: MORPHINE SULFATE 4 MG/ML SYRINGE IVP STA (23:59)
[2022-06-11 00:43] LABS: Basophils # (A) 0.1 k/uL (0-0.2); Basophils % (A) 1 %; Eosinophils # (A) 0.3 k/uL (0-0.7); Eosinophils % (A) 3 %; HCT 37.8 % (34.0-46.0); HGB 12.6 gm/dL (11.4-16.0); Lymphocytes # (A) 2.8 k/uL (1.0-4.8); Lymphocytes % (A) 30 %; MCH 28.7 pg (25.0-35.0); MCHC 33.2 g/dL (31.0-37.0); MCV 86.4 fL (80.0-100.0); Mean Platelet Volume 8.5; Monocytes # (A) 0.4 k/uL (0-1.0); Monocytes % (A) 4 %; Neutrophils # (A) 5.8 k/uL (1.3-7.7); Neutrophils % (A) 61 %; Platelet Count 271 k/uL (150-450); RBC 4.37 m/uL (3.80-5.40); RDW 14.2 % (11.5-15.5); WBC 9.6 k/uL (3.8-10.6)
[2022-06-11 00:54] LABS: ALT 21 U/L (4-34); AST 42 U/L (14-36); African American GFR (CKD) >90 (>60 ml/min/1.73 sqM); Albumin 3.8 g/dL (3.5-5.0); Alkaline Phosphatase 174 U/L (38-126); Amylase 56 U/L (30-110); Anion Gap 8 mmol/L; Blood Urea Nitrogen 30 mg/dL (7-17); Calcium 8.7 mg/dL (8.4-10.2); Carbon Dioxide 21 mmol/L (22-30); Chloride 108 mmol/L (98-107); Glucose 231 mg/dL (74-99); Lipase 323 U/L (23-300); Non-African American GFR(CKD) >90 (>60 ml/min/1.73 sqM); Sodium 137 mmol/L (137-145); Total Bilirubin 0.7 mg/dL (0.2-1.3); Total Protein 6.7 g/dL (6.3-8.2)
[2022-06-11 01:21] LABS: Potassium 5.2 mmol/L (3.5-5.1)
[2022-06-11 02:09] LABS: Appearance,Urine Clear (Clear); Bilirubin,Urine Negative (Negative); Blood,Urine Negative (Negative); Color,Urine Light Yellow; Glucose,Urine (UA) 4+ (Negative); Ketones,Urine Negative (Negative); Leukocyte Esterase,Urine Small (Negative); Nitrite,Urine Negative (Negative); PH, Urine 5.5 (5.0-8.0); Protein,Urine Negative (Negative); RBC,Urine 1 /hpf (0-5); Specific Gravity,Urine 1.032 (1.001-1.035); Squamous Epithelial Cell,Urine 2 /hpf (0-4); Urobilinogen,Urine <2.0 mg/dL (<2.0); WBC,Urine 2 /hpf (0-5)
[2022-06-11 02:13] LABS: INR 0.9 (<1.2); Partial Thromboplastin Time 22.9 sec (22.0-30.0)
--- NOTE | 2022-06-11 02:17 | CT ---
EXAMINATION TYPE: CT abdomen pelvis w con DATE OF EXAM: 06/11/2022 COMPARISON: 02/07/2022 HISTORY: Abdominal pain CT DLP: 2947.8 mGycm Automated exposure control for dose reduction was used. CONTRAST: Performed with IV Contrast, patient injected with 100ml mL of Isovue 300. Images obtained from the diaphragm to the floor the pelvis with the IV contrast. The lung bases are clear of consolidation. Heart size is normal. No pericardial effusion. There are clips from cholecystectomy. Liver and spleen are intact. There is small calcified splenic g ranuloma. No pancreatic mass. The stomach is intact. The bowel gas are not dilated. There is no adrenal mass. Kidneys show satisfactory contrast opacification. There is no hydronephrosi s. Ureters are not dilated. Delayed images show normal renal excretion. No retroperitoneal adenopathy . Bladder distends smoothly. No inguinal hernia. No free fluid in the pelvis. There is mild subcutane ous edema over the lower anterior abdomen. There is no mesenteric edema. No ascites or free air. No sign of a bowel obstruction. Appendix not cl early seen. No sign of thickened appendix. There is small 2 cm fat-containing ventral hernia in the m id abdomen. This is increased slightly compared to the old exam. The lumbar vertebrae have normal alignment. No compression fracture. Bony pelvis is intact. The hip j oints appear intact. Sacroiliac joints are intact. IMPRESSION: No acute abnormality CT scan of the abdomen and pelvis. Appendix not seen. Minimal subcutaneous edema over the lower anterior abdomen could be postsurgical changes and appears stable compared to old exa m. Small ventral hernia containing fat is slightly increased.
[2022-06-11] MEDS ORDERED: DICYCLOMINE 10 MG/ML 2 ML AMP IM STA (02:21)
[2022-06-11] MEDS ORDERED: HYDROmorphone 1 MG/ML 1 ML SYRINGE IVP STA (02:21)
[2022-06-11] MEDS ORDERED: METOCLOPRAMIDE 5 MG/ML 2 ML VIAL IVP STA (02:21)
[2022-06-11 02:36] VITALS: RESP 16
--- NOTE | 2022-06-11 02:48 | ED ---
Abdominal Pain HPI - General Chief Complaint: Abdominal Pain Stated Complaint: Abd Pain Time Seen by Provider: 06/10/22 23:52 Source: EMS Mode of arrival: EMS Limitations: no limitations - History of Present Illness Initial Comments: Patient is a 52-year-old female presenting with chief complaint of abdominal pain. Patient was brought in via EMS from home. Patient states she has had increasing abdominal pain in the lower abdomen over the last day. She is complaining of nausea and vomiting as well. Patient had hernia repair surgery scheduled with Dr. Hernandes for 06/19/22. No chest pain, difficulty breathing, fever, chills, palpitations, weakness, diarrhea, hematochezia, melena, hematemesis, dysuria, hematuria, flank pain. - Related Data Home Medications Medication Instructions Recorded Confirmed Omeprazole [PriLOSEC] 20 mg PO DAILY 01/12/19 03/16/22 Levothyroxine Sodium [Synthroid] 150 mcg PO DAILY 11/10/19 03/16/22 Empagliflozin [Jardiance] 25 mg PO DAILY 12/11/20 03/16/22 Topiramate [Topamax] 100 mg PO DAILY 12/11/20 03/16/22 metFORMIN HCL [Glucophage] 1,000 mg PO BID 12/11/20 03/16/22 Ergocalciferol (Vitamin D2) 1,250 mcg PO MO 07/14/21 03/16/22 [Drisdol (50,000 Iu)] oxyCODONE-APAP 10-325MG [Percocet 1 tab PO TID PRN 07/21/21 03/16/22 10-325 mg] Fenofibrate Nanocrystallized 145 mg PO DAILY 08/03/21 03/16/22 [Fenofibrate] Dicyclomine [Bentyl] 20 mg PO QID 08/25/21 03/16/22 Insulin Regular [HumuLIN R] 50 units SQ AC-SUPPER 10/16/21 03/16/22 Insulin Regular [HumuLIN R] 100 units SQ AC-BRKFST 10/16/21 03/16/22 Prazosin HCl 2 mg PO HS 10/16/21 03/16/22 Prazosin [Minipress] 1 mg PO HS 10/16/21 03/16/22 Venlafaxine HCl ER [Effexor XR] 75 mg PO BID 10/16/21 03/16/22 Cariprazine HCl [Vraylar] 4.5 mg PO DAILY 01/21/22 03/16/22 Dulaglutide [Trulicity] 4.5 mg SQ WE 01/21/22 03/16/22 Furosemide [Lasix] 20 mg PO DAILY 01/21/22 03/16/22 Ibuprofen [Motrin] 800 mg PO Q8H PRN 01/21/22 03/16/22 Magnesium Oxide 400 mg PO DAILY 01/21/22 03/16/22 Meclizine HCl 25 mg PO BID PRN 01/21/22 03/16/22 Metoprolol Succinate [Metoprolol 25 mg PO DAILY 01/21/22 03/16/22 Succinate ER] Potassium Chloride [Klor-Con M20] 20 meq PO DAILY 01/21/22 03/16/22 Spironolactone 25 mg PO DAILY 01/21/22 03/16/22 Triamterene/Hydrochlorothiazid 1 tab PO BID 01/21/22 03/16/22 [Triamterene-Hctz 37.5-25 mg Tb] cloNIDine HCL 0.1 mg PO DAILY PRN 01/21/22 03/16/22 LORazepam [Ativan] 1 mg PO TID PRN 02/07/22 03/16/22 busPIRone HCL 15 mg PO HS 02/07/22 03/16/22 busPIRone HCL 30 mg PO DAILY 02/07/22 03/16/22 Allergies Allergy/AdvReac Type Severity Reaction Status Date / Time bupropion [From Wellbutrin] Allergy Rash/Hives Verified 03/16/22 10:46 cephalexin [From Keflex] Allergy Rash/Hives Verified 03/16/22 10:46 propoxyphene Allergy Rash/Hives Verified 03/16/22 10:46 [From Darvocet-N] sertraline [From Zoloft] Allergy Unknown Verified 03/16/22 10:46 Review of Systems ROS Statement: Those systems with pertinent positive or pertinent negative responses have been documented in the HPI. ROS Other: All systems not noted in ROS Statement are negative. Past Medical History Past Medical History: Diabetes Mellitus, GERD/Reflux, Hyperlipidemia, Thyroid Disorder Additional Past Medical History / Comment(s): hx ventral hernia, frequent uti's,twisted small bowel, HYPOKALEMIA, pancreatitis History of Any Multi-Drug Resistant Organisms: None Reported Past Surgical History: Bowel Resection, Section, Cholecystectomy, Hernia Repair, Hysterectomy, Joint Replacement, Orthopedic Surgery Additional Past Surgical History / Comment(s): bilat knees replaced,. thymus gl and removal,. ventral hernia repair w/ mesh. COLONOSCOPY/EGD Past Anesthesia/Blood Transfusion Reactions: No Reported Reaction Additional Past Anesthesia/Blood Transfusion Reaction / Comment(s): no problems with prior blood transfusion in 1994 Past Psychological History: Anxiety, Depression, Panic Disorder, PTSD, Schizoaf fective Disorder, Schizophrenia Smoking Status: Never smoker - Past Family History Mother Family Medical History: Cancer Additional Family Medical History / Comment(s): lung Father Family Medical History: Myocardial Infarction ([place]) Sister(s) Family Medical History: Cancer Additional Family Medical History / Comment(s): breast General Exam Limitations: no limitations General appearance: alert, in no apparent distress Head exam: Present: atraumatic, normocephalic, normal inspection Eye exam: Present: normal appearance Neck exam: Present: normal inspection Respiratory exam: Present: normal lung sounds bilaterally. Absent: respiratory distress, wheezes, rales, rhonchi, stridor Cardiovascular Exam: Present: regular rate, normal rhythm, normal heart sounds. Absent: systolic murmur, diastolic murmur, rubs, gallop, clicks GI/Abdominal exam: Present: soft, tenderness (Diffuse). Absent: distended, guarding, rebound, rigid Neurological exam: Present: alert, oriented X3, CN II-XII intact Psychiatric exam: Present: normal affect, normal mood Skin exam: Present: warm, dry, intact, normal color. Absent: rash Course Vital Signs 06/10/22 06/11/22 06/11/22 23:45 02:36 02:59 Temperature 98.2 F 98.5 F Pulse Rate 102 H 86 Respiratory 18 16 16 Rate Blood Pressure 165/89 151/79 O2 Sat by Pulse 98 Oximetry Medical Decision Making - Medical Decision Making Was pt. sent in by a medical professional or institution (, PA, MARINE FIRER, urgent care, hospital, or group home...) When possible be specific @ -[No] Did you speak to anyone other than the patient for history (EMS, parent, family, police, friend...)? What history was obtained from this source @ -[No] Did you review nursing and triage notes (agree or disagree)? Why? @ -[I reviewed and agree with nursing and triage notes] Were old charts reviewed (outside hosp., previous admission, EMS record, old EKG, old radiological studies, urgent care reports/EKG's, group home records)? Report findings @ -Previous visits are reviewed Differential Diagnosis (chest pain, altered mental status, abdominal pain women, abdominal pain men, vaginal bleeding, weakness, fever, dyspnea, syncope, headache, dizziness, GI bleed, back pain, seizure, CVA, palpatations, mental health)? @ -MDM Differential Abdominal Pain Women: Appendicitis, Cholecystitis, diverticulosis, ischemic bowel, pancreatitis, hepatitis, UTI, gastroenteritis, AAA, incarcerated hernia, bowel obstruction, constipation, inflammatory bowel, hepatitis, peptic ulcer disease, splenic infarction, perforated viscus, vulvitis, ovarian torsion, PID, kidney stone, placenta abruption... This is not meant to be an all-inclusive list EKG interpreted by me (3pts min.). @ -[As above] X-rays interpreted by me (1pt min.). @ -[None done] CT interpreted by me (1pt min.). @ -No, radiologist report is reviewed. No acute abnormality. Appendix not seen. Postsurgical changes that appears stable compared to old exam. Small ventral hernia containing fat a slightly increased. U/S interpreted by me (1pt. min.). @ -[None done] What testing was considered but not performed or refused? (CT, X-rays, U/S, labs)? Why? @ -[None] What meds were considered but not given or refused? Why? @ -[None] Did you discuss the management of the patient with other professionals (professionals i.e. Dr., PA, MARINE FIRER, lab, RT, psych nurse, social worker assistant, new home sales consultant, teacher, public information officer, case management social worker)? Give summary @ -[No] Was smoking cessation discussed for >3mins.? @ -[No] Was critical care preformed (if so, how long)? @ -[No] Were there social determinants of health that impacted care today? How? (Homelessness, low income, unemployed, alcoholism, drug addiction, transportation, low edu. Level, literacy, decrease access to med. care, prison, rehab)? @ -[No] Was there de-escalation of care discussed even if they declined (Discuss DNR or withdrawal of care, Hospice)? DNR status @ -[No] What co-morbidities impacted this encounter? (DM, HTN, Smoking, COPD, CAD, Cancer, CVA, ARF, Chemo, Hep., AIDS, mental health diagnosis, sleep apnea, morbid obesity)? @ -Diabetes Was patient admitted / discharged? Hospital course, mention meds given and rou te, prescriptions, significant lab abnormalities, going to OR and other pertinent info. @ -Patient is a 52-year-old female presenting with chief complaint of abdominal pain. Patient has history of chronic abdominal pain and currently has surgery scheduled with Dr. Hernandes for hernia repair. On physical examination there is diffuse tenderness. Admits to nausea and vomiting. Lab work shows no leukocytosis or anemia. Potassium 5.2, sample was hemolyzed. BUN 30 and lactic acid 2.2, patient is dehydrated and receiving fluids. Lipase 323 likely due to vomiting, patient is receiving fluids. Urine shows 4+ glucose, history of diabetes. CT shows no acute findings. Patient received morphine, Bentyl, Reglan, Zofran, Dilaudid. On reassessment she reports improvement in symptoms. She appears stable for discharge. Follow-up with PCP. Report back to ER with any new or worsening symptoms. Discussed return parameters and answered all questions. Patient conveyed verbal understanding and agreed to the plan. I discussed this case in detail with my attending Dr. Ellington Undiagnosed new problem with uncertain prognosis? @ -[No] Drug Therapy requiring intensive monitoring for toxicity (Heparin, Nitro, Insulin, Cardizem)? @ -[No] Were any procedures done? @ -[No] Diagnosis/symptom? @ -Abdominal pain Acute, or Chronic, or Acute on Chronic? @ -Acute on chronic Uncomplicated (without systemic symptoms) or Complicated (systemic symptoms)? @ -Uncomplicated Side effects of treatment? @ -[No] Exacerbation, Progression, or Severe Exacerbation? @ -[No] Poses a threat to life or bodily function? How? (Chest pain, [place], [place], pneumonia, PE, COPD, DKA, ARF, appy, cholecystitis, CVA, Diverticulitis, Homicidal, Suicidal, threat to staff... and all critical care pts) @ -Unlikely - Lab Data Result diagrams: 06/11/22 00:13 06/11/22 00:13 Lab Results 06/11/22 06/11/22 06/11/22 Range/Units 00:13 00:13 00:13 WBC 9.6 (3.8-10.6) k/uL RBC 4.37 (3.80-5.40) m/uL Hgb 12.6 (11.4-16.0) gm/dL Hct 37.8 (34.0-46.0) % MCV 86.4 (80.0-100.0) fL MCH 28.7 (25.0-35.0) pg MCHC 33.2 (31.0-37.0) g/dL RDW 14.2 (11.5-15.5) % Plt Count 271 (150-450) k/uL MPV 8.5 Neutrophils % 61 % Lymphocytes % 30 % Monocytes % 4 % Eosinophils % 3 % Basophils % 1 % Neutrophils # 5.8 (1.3-7.7) k/uL Lymphocytes # 2.8 (1.0-4.8) k/uL Monocytes # 0.4 (0-1.0) k/uL Eosinophils # 0.3 (0-0.7) k/uL Basophils # 0.1 (0-0.2) k/uL PT (9.0-12.0) sec INR (<1.2) APTT (22.0-30.0) sec Sodium 137 (137-145) mmol/L Potassium 5.2 H (3.5-5.1) mmol/L Chloride 108 H (98-107) mmol/L Carbon Dioxide 21 L (22-30) mmol/L Anion Gap 8 mmol/L BUN 30 H (7-17) mg/dL Creatinine 0.57 (0.52-1.04) mg/dL Est GFR (CKD-EPI)AfAm >90 (>60 ml/min/1.73 sqM) Est GFR (CKD-EPI)NonAf >90 (>60 ml/min/1.73 sqM) Glucose 231 H (74-99) mg/dL Lactic Ac Sepsis Rflx Plasma Lactic Acid Shayan 2.2 H* (0.7-2.0) mmol/L Calcium 8.7 (8.4-10.2) mg/dL Total Bilirubin 0.7 (0.2-1.3) mg/dL AST 42 H (14-36) U/L ALT 21 (4-34) U/L Alkaline Phosphatase 174 H (38-126) U/L Troponin I (0.000-0.034) ng/mL Total Protein 6.7 (6.3-8.2) g/dL Albumin 3.8 (3.5-5.0) g/dL Amylase 56 (30-110) U/L Lipase 323 H (23-300) U/L Urine Color Urine Appearance (Clear) Urine pH (5.0-8.0) Ur Specific [place] (1.001-1.035) Urine Protein (Negative) Urine Glucose (UA) (Negative) Urine Ketones (Negative) Urine Blood (Negative) Urine Nitrite (Negative) Urine Bilirubin (Negative) Urine Urobilinogen (<2.0) mg/dL Ur Leukocyte Esterase (Negative) Urine RBC (0-5) /hpf Urine WBC (0-5) /hpf Ur Squamous Epith Cells (0-4) /hpf 06/11/22 06/11/22 06/11/22 Range/Units 00:13 00:23 01:24 WBC (3.8-10.6) k/uL RBC (3.80-5.40) m/uL Hgb (11.4-16.0) gm/dL Hct (34.0-46.0) % MCV (80.0-100.0) fL MCH (25.0-35.0) pg MCHC (31.0-37.0) g/dL RDW (11.5-15.5) % Plt Count (150-450) k/uL MPV Neutrophils % % Lymphocytes % % Monocytes % % Eosinophils % % Basophils % % Neutrophils # (1.3-7.7) k/uL Lymphocytes # (1.0-4.8) k/uL Monocytes # (0-1.0) k/uL Eosinophils # (0-0.7) k/uL Basophils # (0-0.2) k/uL PT (9.0-12.0) sec INR (<1.2) APTT (22.0-30.0) sec Sodium (137-145) mmol/L Potassium (3.5-5.1) mmol/L Chloride (98-107) mmol/L Carbon Dioxide (22-30) mmol/L Anion Gap mmol/L BUN (7-17) mg/dL Creatinine (0.52-1.04) mg/dL Est GFR (CKD-EPI)AfAm (>60 ml/min/1.73 sqM) Est GFR (CKD-EPI)NonAf (>60 ml/min/1.73 sqM) Glucose (74-99) mg/dL Lactic Ac Sepsis Rflx Y Plasma Lactic Acid Shayan (0.7-2.0) mmol/L Calcium (8.4-10.2) mg/dL Total Bilirubin (0.2-1.3) mg/dL AST (14-36) U/L ALT (4-34) U/L Alkaline Phosphatase (38-126) U/L Troponin I <0.012 (0.000-0.034) ng/mL Total Protein (6.3-8.2) g/dL Albumin (3.5-5.0) g/dL Amylase (30-110) U/L Lipase (23-300) U/L Urine Color Light Yellow Urine Appearance Clear (Clear) Urine pH 5.5 (5.0-8.0) Ur Specific [place] 1.032 (1.001-1.035) Urine Protein Negative (Negative) Urine Glucose (UA) 4+ H (Negative) Urine Ketones Negative (Negative) Urine Blood Negative (Negative) Urine Nitrite Negative (Negative) Urine Bilirubin Negative (Negative) Urine Urobilinogen <2.0 (<2.0) mg/dL Ur Leukocyte Esterase Small H (Negative) Urine RBC 1 (0-5) /hpf Urine WBC 2 (0-5) /hpf Ur Squamous Epith Cells 2 (0-4) /hpf 06/11/22 Range/Units 01:30 WBC (3.8-10.6) k/uL RBC (3.80-5.40) m/uL Hgb (11.4-16.0) gm/dL Hct (34.0-46.0) % MCV (80.0-100.0) fL MCH (25.0-35.0) pg MCHC (31.0-37.0) g/dL RDW (11.5-15.5) % Plt Count (150-450) k/uL MPV Neutrophils % % Lymphocytes % % Monocytes % % Eosinophils % % Basophils % % Neutrophils # (1.3-7.7) k/uL Lymphocytes # (1.0-4.8) k/uL Monocytes # (0-1.0) k/uL Eosinophils # (0-0.7) k/uL Basophils # (0-0.2) k/uL PT 10.0 (9.0-12.0) sec INR 0.9 (<1.2) APTT 22.9 (22.0-30.0) sec Sodium (137-145) mmol/L Potassium (3.5-5.1) mmol/L Chloride (98-107) mmol/L Carbon Dioxide (22-30) mmol/L Anion Gap mmol/L BUN (7-17) mg/dL Creatinine (0.52-1.04) mg/dL Est GFR (CKD-EPI)AfAm (>60 ml/min/1.73 sqM) Est GFR (CKD-EPI)NonAf (>60 ml/min/1.73 sqM) Glucose (74-99) mg/dL Lactic Ac Sepsis Rflx Plasma Lactic Acid Shayan (0.7-2.0) mmol/L Calcium (8.4-10.2) mg/dL Total Bilirubin (0.2-1.3) mg/dL AST (14-36) U/L ALT (4-34) U/L Alkaline Phosphatase (38-126) U/L Troponin I (0.000-0.034) ng/mL Total Protein (6.3-8.2) g/dL Albumin (3.5-5.0) g/dL Amylase (30-110) U/L Lipase (23-300) U/L Urine Color Urine Appearance (Clear) Urine pH (5.0-8.0) Ur Specific [place] (1.001-1.035) Urine Protein (Negative) Urine Glucose (UA) (Negative) Urine Ketones (Negative) Urine Blood (Negative) Urine Nitrite (Negative) Urine Bilirubin (Negative) Urine Urobilinogen (<2.0) mg/dL Ur Leukocyte Esterase (Negative) Urine RBC (0-5) /hpf Urine WBC (0-5) /hpf Ur Squamous Epith Cells (0-4) /hpf Disposition Clinical Impression: Abdominal pain, Dehydration Disposition: HOME SELF-CARE Condition: Good Instructions (If sedation given, give patient instructions): Abdominal Pain (ED) Additional Instructions: Follow-up with PCP and surgeon. Report back to ER with any new or worsening symptoms. Is patient prescribed a controlled substance at d/c from ED?: No Referrals: Ramin Lopes MD [Primary Care Provider] - 1-2 days Yarelis Hernandes MD [STAFF PHYSICIAN] - 1-2 days Time of Disposition: 02:48
[2022-06-11 03:00] VITALS: BP 151/79; PULSE 86; TEMP 98.5
== END 2022-06-11 02:59 | disposition home or self-care (01) ==
LOC: EC 23:43
DX: R10.9 Unspecified abdominal pain (principal); E86.0 Dehydration; E11.9 Type 2 diabetes mellitus without complications; K21.9 Gastro-esophageal reflux disease without esophagitis; E78.5 Hyperlipidemia, unspecified; E07.9 Disorder of thyroid, unspecified; F41.9 Anxiety disorder, unspecified; F32.A Depression, unspecified; Z88.8 Allergy status to other drugs, medicaments and biological substances; Z88.1 Allergy status to other antibiotic agents; Z88.2 Allergy status to sulfonamides; Z79.890 Hormone replacement therapy; Z79.84 Long term (current) use of oral hypoglycemic drugs; Z79.4 Long term (current) use of insulin; Z79.899 Other long term (current) drug therapy
CPT/HCPCS: 36415; 93005; 80053; 82150; 83605; 83690; 84484; 85025; 85610; 85730; 81001; 74177; 99285; 96372; 96374; 96375 ×3; 96361; J2270; J0500; J2765; J2405; J1170; Q9967

== ENCOUNTER 2022-06-13 19:23 | Emergency (ER) | payer OTHER ==
[2022-06-13 19:29] VITALS: RESP 18; TEMP 98.2
[2022-06-13] MEDS ORDERED: diphenhydrAMINE 50 MG/ML 1 ML VIAL IVP STA (19:57)
[2022-06-13] MEDS ORDERED: DICYCLOMINE 10 MG/ML 2 ML AMP IM STA (19:57)
[2022-06-13] MEDS ORDERED: METOCLOPRAMIDE 5 MG/ML 2 ML VIAL IVP STA (19:57)
[2022-06-13] MEDS ORDERED: SODIUM CHLORIDE 0.9% 1,000 ML IV ONE (19:57)
[2022-06-13] MEDS ORDERED: HYDROmorphone 1 MG/ML 1 ML SYRINGE IVP STA (19:57)
--- NOTE | 2022-06-13 20:07 | ED ---
General Adult HPI - General Chief complaint: Abdominal Pain Stated complaint: abd pain Time Seen by Provider: 06/13/22 19:35 Source: patient Mode of arrival: wheelchair Limitations: no limitations - History of Present Illness Initial comments: This is a 52-year-old female with a past medical history including diabetes and chronic abdominal pain status post 6 abdominal surgeries, 5 for removal of adhesions presents emergency department for continued abdominal pain. The patient stated that she is scheduled to undergo adhesion surgery as well as possible hernia surgery with Dr. Sales on 06/19/2022 and had recently been emergency department 2 days ago for the same abdominal pain but stated that it was more severe today with worsening nausea and vomiting. The patient did however state that she had normal bowel movements. The patient stated that she could not take the pain any longer and needed to come to the emergency department. The patient did state that she was waiting for medications to be prescribed from her primary care physician however had not received his medications as of yet including Bentyl. The patient was laying in bed without any acute distress however. The patient reported only mild current nausea. - Related Data Home Medications Medication Instructions Recorded Confirmed Omeprazole [PriLOSEC] 20 mg PO DAILY 01/12/19 03/16/22 Levothyroxine Sodium [Synthroid] 150 mcg PO DAILY 11/10/19 03/16/22 Empagliflozin [Jardiance] 25 mg PO DAILY 12/11/20 03/16/22 Topiramate [Topamax] 100 mg PO DAILY 12/11/20 03/16/22 metFORMIN HCL [Glucophage] 1,000 mg PO BID 12/11/20 03/16/22 Ergocalciferol (Vitamin D2) 1,250 mcg PO MO 07/14/21 03/16/22 [Drisdol (50,000 Iu)] oxyCODONE-APAP 10-325MG [Percocet 1 tab PO TID PRN 07/21/21 03/16/22 10-325 mg] Fenofibrate Nanocrystallized 145 mg PO DAILY 08/03/21 03/16/22 [Fenofibrate] Dicyclomine [Bentyl] 20 mg PO QID 08/25/21 03/16/22 Insulin Regular [HumuLIN R] 50 units SQ AC-SUPPER 10/16/21 03/16/22 Insulin Regular [HumuLIN R] 100 units SQ AC-BRKFST 10/16/21 03/16/22 Prazosin HCl 2 mg PO HS 10/16/21 03/16/22 Prazosin [Minipress] 1 mg PO HS 10/16/21 03/16/22 Venlafaxine HCl ER [Effexor XR] 75 mg PO BID 10/16/21 03/16/22 Cariprazine HCl [Vraylar] 4.5 mg PO DAILY 01/21/22 03/16/22 Dulaglutide [Trulicity] 4.5 mg SQ WE 01/21/22 03/16/22 Furosemide [Lasix] 20 mg PO DAILY 01/21/22 03/16/22 Ibuprofen [Motrin] 800 mg PO Q8H PRN 01/21/22 03/16/22 Magnesium Oxide 400 mg PO DAILY 01/21/22 03/16/22 Meclizine HCl 25 mg PO BID PRN 01/21/22 03/16/22 Metoprolol Succinate [Metoprolol 25 mg PO DAILY 01/21/22 03/16/22 Succinate ER] Potassium Chloride [Klor-Con M20] 20 meq PO DAILY 01/21/22 03/16/22 Spironolactone 25 mg PO DAILY 01/21/22 03/16/22 Triamterene/Hydrochlorothiazid 1 tab PO BID 01/21/22 03/16/22 [Triamterene-Hctz 37.5-25 mg Tb] cloNIDine HCL 0.1 mg PO DAILY PRN 01/21/22 03/16/22 LORazepam [Ativan] 1 mg PO TID PRN 02/07/22 03/16/22 busPIRone HCL 15 mg PO HS 02/07/22 03/16/22 busPIRone HCL 30 mg PO DAILY 02/07/22 03/16/22 Previous Rx's Medication Instructions Recorded Dicyclomine [Bentyl] 10 mg PO QID #28 capsule 06/13/22 Metoclopramide [Reglan] 10 mg PO ACHS #30 tab 06/13/22 Sulfamethox-Tmp 800-160Mg [Bactrim 1 tab PO Q12HR #10 tab 06/13/22 DS 800-160 mg] Allergies Allergy/AdvReac Type Severity Reaction Status Date / Time bupropion [From Wellbutrin] Allergy Rash/Hives Verified 06/13/22 19:27 cephalexin [From Keflex] Allergy Rash/Hives Verified 06/13/22 19:27 propoxyphene Allergy Rash/Hives Verified 06/13/22 19:27 [From Darvocet-N] sertraline [From Zoloft] Allergy Unknown Verified 06/13/22 19:27 Review of Systems ROS Statement: Those systems with pertinent positive or pertinent negative responses have been documented in the HPI. ROS Other: All systems not noted in ROS Statement are negative. Past Medical History Past Medical History: Diabetes Mellitus, GERD/Reflux, Hyperlipidemia, Thyroid Disorder Additional Past Medical History / Comment(s): hx ventral hernia, frequent uti's,twisted small bowel, HYPOKALEMIA, pancreatitis History of Any Multi-Drug Resistant Organisms: None Reported Past Surgical History: Bowel Resection, Section, Cholecystectomy, Herni a Repair, Hysterectomy, Joint Replacement, Orthopedic Surgery Additional Past Surgical History / Comment(s): bilat knees replaced,. thymus gland removal,. ventral hernia repair w/ mesh. COLONOSCOPY/EGD Past Anesthesia/Blood Transfusion Reactions: No Reported Reaction Additional Past Anesthesia/Blood Transfusion Reaction / Comment(s): no problems with prior blood transfusion in 1994 Past Psychological History: Anxiety, Depression, Panic Disorder, PTSD, Schizoaffective Disorder, Schizophrenia Smoking Status: Never smoker Past Alcohol Use History: None Reported Past Drug Use History: None Reported - Past Family History Mother Family Medical History: Cancer Additional Family Medical History / Comment(s): lung Father Family Medical History: Myocardial Infarction ([place]) Sister(s) Family Medical History: Cancer Additional Family Medical History / Comment(s): breast General Exam Limitations: no limitations General appearance: alert, in no apparent distress, obese Head exam: Present: atraumatic, normocephalic, normal inspection Eye exam: Present: normal appearance, PERRL Pupils: Present: normal accommodation ENT exam: Present: normal exam, normal oropharynx, mucous membranes moist Neck exam: Present: normal inspection, full ROM Respiratory exam: Present: normal lung sounds bilaterally Cardiovascular Exam: Present: regular rate, normal rhythm, normal heart sounds GI/Abdominal exam: Present: tenderness (Patient's abdomen distended but at baseline. Generalized tenderness to palpation noted. Point tenderness was noted around the umbilical region), normal bowel sounds Extremities exam: Present: normal inspection, full ROM Back exam: Present: normal inspection, full ROM Neurological exam: Present: alert, oriented X3, CN II-XII intact Psychiatric exam: Present: normal affect, normal mood Skin exam: Present: warm, dry Course Vital Signs 06/13/22 19:27 Temperature 98.2 F Pulse Rate 108 H Respiratory 18 Rate Blood Pressure 122/82 O2 Sat by Pulse 96 Oximetry Medical Decision Making - Medical Decision Making Was pt. sent in by a medical professional or institution (HECTOR Alves, POWERHOUSE OPERATOR, urgent care, hospital, or alf...) When possible be specific @ -No Did you speak to anyone other than the patient for history (EMS, parent, family, police, friend...)? What history was obtained from this source @ -Yes, patient's mother Did you review nursing and triage notes (agree or disagree)? Why? @ -I reviewed and agree with nursing and triage notes Were old charts reviewed (outside hosp., previous admission, EMS record, old EKG, old radiological studies, urgent care reports/EKG's, alf records)? Report findings @ -Yes, previous ER visit was reviewed Differential Diagnosis (chest pain, altered mental status, abdominal pain women, abdominal pain men, vaginal bleeding, weakness, fever, dyspnea, syncope, headache, dizziness, GI bleed, back pain, seizure, CVA, palpatations, mental health)? @ -Incarcerated hernia, strangulate hernia, small bowel obstruction EKG interpreted by me (3pts min.). @ -None X-rays interpreted by me (1pt min.). @ -None done CT interpreted by me (1pt min.). @ -CT abdomen and pelvis with contrast was obtained and was interpreted by myself. CT showed no acute finding and no change from the previous CT performed 2 days ago. U/S interpreted by me (1pt. min.). @ -None done What testing was considered but not performed or refused? (CT, X-rays, U/S, labs)? Why? @ -None What meds were considered but not given or refused? Why? @ -None Did you discuss the management of the patient with other professionals (professionals i.e. HECTOR Alves, POWERHOUSE OPERATOR, lab, RT, psych nurse, social security benefits interviewer, staff attorney, teacher, radio electronics officer, caser shoe parts)? Give summary @ -No Was smoking cessation discussed for >3mins.? @ -No Was critical care preformed (if so, how long)? @ -No Were there social determinants of health that impacted care today? How? (Homelessness, low income, unemployed, alcoholism, drug addiction, transportation, low edu. Level, literacy, decrease access to med. care, long-term, rehab)? @ -No Was there de-escalation of care discussed even if they declined (Discuss DNR or withdrawal of care, Hospice)? DNR status @ -No What co-morbidities impacted this encounter? (DM, HTN, Smoking, COPD, CAD, Cancer, CVA, ARF, Chemo, Hep., AIDS, mental health diagnosis, sleep apnea, morbid obesity)? @ -Multiple previous abdominal surgeries, diabetes Was patient admitted / discharged? Hospital course, mention meds given and route, prescriptions, significant lab abnormalities, going to OR and other pertinent info. @ -The patient was seen and evaluated in the emergency department. Physical exam, the patient was resting in bed without any acute distress. The patient did have significant abdominal pain on palpation. Laboratory workup was obta ined and showed a slight UTI. The rest of laboratory workup was within normal limits. CT abdomen and pelvis was once again obtained and did not show any changes. The patient arty had medications prescribed however was not able to receive the Reglan or Bentyl therefore a prescription was given for Bentyl and Reglan at this time. The patient was given Bactrim for her UTI and was given a prescription for this. The patient was given medications including Dilaudid, Reglan and bentyl in the emergency department and did have improvement of her pain. The patient was deemed stable for discharge and told to follow-up with her surgeon as previous he scheduled. The patient was agreeable to this and all her questions were answered. The patient was with her mother. Undiagnosed new problem with uncertain prognosis? @ -No Drug Therapy requiring intensive monitoring for toxicity (Heparin, Nitro, Insulin, Cardizem)? @ -No Were any procedures done? @ -No Diagnosis/symptom? @ -Abdominal pain Acute, or Chronic, or Acute on Chronic? @ -Acute on chronic Uncomplicated (without systemic symptoms) or Complicated (systemic symptoms)? @ -Complicated Side effects of treatment? @ -No Exacerbation, Progression, or Severe Exacerbation? @ -No Poses a threat to life or bodily function? How? (Chest pain, [place], [place], pneumonia, PE, COPD, DKA, ARF, appy, cholecystitis, CVA, Diverticulitis, Homicidal, Suicidal, threat to staff... and all critical care pts) @ -No Diagnosis/symptom? @ -UTI Acute, or Chronic, or Acute on Chronic? @ -Acute Uncomplicated (without systemic symptoms) or Complicated (systemic symptoms)? @ -Uncomplicated Side effects of treatment? @ -none Exacerbation, Progression, or Severe Exacerbation] @ -no Poses a threat to life or bodily function? @ -no - Lab Data Result diagrams: 06/13/22 20:04 06/13/22 20:04 Lab Results 06/13/22 06/13/22 06/13/22 Range/Units 20: 20: 20:04 WBC 9.9 (3.8-10.6) k/uL RBC 4.82 (3.80-5.40) m/uL Hgb 13.9 (11.4-16.0) gm/dL Hct 41.8 (34.0-46.0) % MCV 86.8 (80.0-100.0) fL MCH 28.9 (25.0-35.0) pg MCHC 33.3 (31.0-37.0) g/dL RDW 14.2 (11.5-15.5) % Plt Count 310 (150-450) k/uL MPV 8.8 Neutrophils % 67 % Lymphocytes % 24 % Monocytes % 4 % Eosinophils % 3 % Basophils % 1 % Neutrophils # 6.7 (1.3-7.7) k/uL Lymphocytes # 2.4 (1.0-4.8) k/uL Monocytes # 0.4 (0-1.0) k/uL Eosinophils # 0.3 (0-0.7) k/uL Basophils # 0.1 (0-0.2) k/uL Sodium 138 (137-145) mmol/L Potassium 5.3 H (3.5-5.1) mmol/L Chloride 104 (98-107) mmol/L Carbon Dioxide 26 (22-30) mmol/L Anion Gap 8 mmol/L BUN 21 H (7-17) mg/dL Creatinine 0.62 (0.52-1.04) mg/dL Est GFR (CKD-EPI)AfAm >90 (>60 ml/min/1.73 sqM) Est GFR (CKD-EPI)NonAf >90 (>60 ml/min/1.73 sqM) Glucose 226 H (74-99) mg/dL Calcium 8.8 (8.4-10.2) mg/dL Magnesium 1.8 (1.6-2.3) mg/dL Total Bilirubin 0.6 (0.2-1.3) mg/dL AST 46 H (14-36) U/L ALT 27 (4-34) U/L Alkaline Phosphatase 187 H (38-126) U/L Total Protein 7.3 (6.3-8.2) g/dL Albumin 4.1 (3.5-5.0) g/dL Lipase 164 (23-300) U/L Urine Color Colorless Urine Appearance Clear (Clear) Urine pH 6.0 (5.0-8.0) Ur Specific [place] 1.029 (1.001-1.035) Urine Protein Negative (Negative) Urine Glucose (UA) 4+ H (Negative) Urine Ketones Negative (Negative) Urine Blood Negative (Negative) Urine Nitrite Negative (Negative) Urine Bilirubin Negative (Negative) Urine Urobilinogen <2.0 (<2.0) mg/dL Ur Leukocyte Esterase Moderate H (Negative) Urine RBC 2 (0-5) /hpf Urine WBC 20 H (0-5) /hpf Ur Squamous Epith Cells 1 (0-4) /hpf Disposition Clinical Impression: Abdominal pain Disposition: HOME SELF-CARE Condition: Stable Instructions (If sedation given, give patient instructions): Abdominal Pain (ED) Prescriptions: Sulfamethox-Tmp 800-160Mg [Bactrim DS 800-160 mg] 1 tab PO Q12HR #10 tab Dicyclomine [Bentyl] 10 mg PO QID #28 capsule Metoclopramide [Reglan] 10 mg PO ACHS #30 tab Is patient prescribed a controlled substance at d/c from ED?: No Referrals: Ramin Lopes MD [Primary Care Provider] - 1-2 days Yarelis Hernandes MD [STAFF PHYSICIAN] - 06/19/22 Time of Disposition: 21:50
[2022-06-13 20:16] LABS: Basophils # (A) 0.1 k/uL (0-0.2); Basophils % (A) 1 %; Eosinophils # (A) 0.3 k/uL (0-0.7); Eosinophils % (A) 3 %; HCT 41.8 % (34.0-46.0); HGB 13.9 gm/dL (11.4-16.0); Lymphocytes # (A) 2.4 k/uL (1.0-4.8); Lymphocytes % (A) 24 %; MCH 28.9 pg (25.0-35.0); MCHC 33.3 g/dL (31.0-37.0); MCV 86.8 fL (80.0-100.0); Mean Platelet Volume 8.8; Monocytes # (A) 0.4 k/uL (0-1.0); Monocytes % (A) 4 %; Neutrophils # (A) 6.7 k/uL (1.3-7.7); Neutrophils % (A) 67 %; Platelet Count 310 k/uL (150-450); RBC 4.82 m/uL (3.80-5.40); RDW 14.2 % (11.5-15.5); WBC 9.9 k/uL (3.8-10.6)
[2022-06-13 20:31] LABS: ALT 27 U/L (4-34); African American GFR (CKD) >90 (>60 ml/min/1.73 sqM); Anion Gap 8 mmol/L; Blood Urea Nitrogen 21 mg/dL (7-17); Calcium 8.8 mg/dL (8.4-10.2); Carbon Dioxide 26 mmol/L (22-30); Chloride 104 mmol/L (98-107); Glucose 226 mg/dL (74-99); Lipase 164 U/L (23-300); Non-African American GFR(CKD) >90 (>60 ml/min/1.73 sqM); Sodium 138 mmol/L (137-145); Total Bilirubin 0.6 mg/dL (0.2-1.3)
[2022-06-13 20:37] LABS: AST 46 U/L (14-36); Albumin 4.1 g/dL (3.5-5.0); Magnesium 1.8 mg/dL (1.6-2.3); Potassium 5.3 mmol/L (3.5-5.1); Total Protein 7.3 g/dL (6.3-8.2)
[2022-06-13 20:38] LABS: Alkaline Phosphatase 187 U/L (38-126)
[2022-06-13 20:59] LABS: Appearance,Urine Clear (Clear); Bilirubin,Urine Negative (Negative); Blood,Urine Negative (Negative); Color,Urine Colorless; Glucose,Urine (UA) 4+ (Negative); Ketones,Urine Negative (Negative); Leukocyte Esterase,Urine Moderate (Negative); Nitrite,Urine Negative (Negative); Protein,Urine Negative (Negative); RBC,Urine 2 /hpf (0-5); Specific Gravity,Urine 1.029 (1.001-1.035); Squamous Epithelial Cell,Urine 1 /hpf (0-4); Urobilinogen,Urine <2.0 mg/dL (<2.0); WBC,Urine 20 /hpf (0-5)
--- NOTE | 2022-06-13 21:29 | CT ---
EXAMINATION TYPE: CT abdomen pelvis w con DATE OF EXAM: 06/13/2022 COMPARISON: 06/11/2022 HISTORY: mid-lower abd pain. CT DLP: 2732.2 mGycm Automated exposure control for dose reduction was used. CONTRAST: Performed with IV Contrast, patient injected with 100ml mL of Isovue 300. Images obtained from the diaphragm to the floor the pelvis with the IV contrast. Lung bases are clear of consolidation. No pleural effusion. Heart size is normal. No pericardial effu cindy. Spleen is intact. There are small calcified splenic granuloma. No pancreatic mass. There are cl ips from cholecystectomy. The stomach is intact. The bile ducts are not dilated. There is no adrenal mass. Kidneys show satisfactory contrast opacific ation. No hydronephrosis. Ureters are not dilated. No retroperitoneal adenopathy. The bladder distend s smoothly. No inguinal hernia. No free fluid in the pelvis. No pelvic mass. There is no mesenteric edema. No ascites or free air. No sign of a bowel obstruction. Appendix not se en. No significant appendix. The lumbar vertebrae have normal alignment. No compression fracture. Posterior elements are intact. D isc spaces are fairly normal. The bony pelvis is intact. The hip joints are intact. IMPRESSION: No acute abnormality of the abdomen and pelvis. No adverse change compared to the old exam.
[2022-06-13] MEDS ORDERED: SULFAMETHOX-TMP 800-160MG 1 EACH TAB PO STA (21:59)
[2022-06-13 22:17] VITALS: BP 137/68; PULSE 96
== END 2022-06-13 22:17 | disposition home or self-care (01) ==
LOC: EC 19:23
DX: R10.9 Unspecified abdominal pain (principal); F41.9 Anxiety disorder, unspecified; F32.A Depression, unspecified; E11.9 Type 2 diabetes mellitus without complications; E78.5 Hyperlipidemia, unspecified; K21.9 Gastro-esophageal reflux disease without esophagitis; Z79.84 Long term (current) use of oral hypoglycemic drugs; Z79.899 Other long term (current) drug therapy; Z88.8 Allergy status to other drugs, medicaments and biological substances; Z88.1 Allergy status to other antibiotic agents; Z90.49 Acquired absence of other specified parts of digestive tract
CPT/HCPCS: 36415; 80053; 83690; 83735; 85025; 81001; 74177; 99284; 96372; 96374; 96375 ×2; 96361; J1200; J0500; J2765; J1170; Q9967

== ENCOUNTER → 2022-06-15 | Outpatient (CLI) | payer OTHER ==
[2022-06-15 08:21] VITALS: BP 120/81; PULSE 68; RESP 16; TEMP 97.4
--- NOTE | 2022-06-15 15:21 | P.PAINPG ---
PQRS Measure Charge Sheet Comment: HISTORY OF PRESENT ILLNESS: 52 yr old female w female goring cutter at side as a referral from [facility] presents today w severe and chronic LBP secondary to stenosis, DDD and facet arthropathy without myelopathy for evaluation. Pt states pain level is at 9 /10 in intensity, constant, localized in the lower lumbar spine, stabbing in character w shooting pain towards the BLEs. Pain is provoked by bending, twisting, lifting. Pain is alleviated by PT in Feb 2022 which increased pain, home exercise as tolerated, use of a walker for ambulatory assistance, heat, meds (Ibu 800mg from Dr Lopes, Percocet from Dr Quintanilla), repostioning and rest. PMH: Diabetes Mellitus, GERD, Hyperlipidemia, Hypothyroidism, Mdd/ Anxiety, Panic Disorder, PTSD, Schizoaffective Disorder/ Schizophrenia PSH: Ventral Hernia Mesh Repair, Pancreatitis, Thymus Resection, Bowel Resection, Section, Cholecystectomy, Hernia Repair, Hysterectomy, BL Knee Replacement, Colonoscopy/ EGD SH: Negative x3 FH: Mo- Lung CA. Fa- OK. Sister- Breast CA. All: See list Meds: See list REVIEW OF ORGAN SYSTEMS: CONSTITUTIONAL: No fevers or chills. No recent weight loss. NEUROLOGICAL: + numbness and tingling along the distal extremities. No seizure disorders or headaches. MUSCULOSKELETAL: + pain PSYCHIATRIC: Denies current depression or suicidal thoughts. Physical Examinations : Constitutional : Cooperative , not in acute distress . Neurologic : Cranial nerve II to XII intact. No focal neurological deficits. Psychiatric : alert & oriented x 3. Matching mood & appropriate affect. Judgment & insight intact. Musculoskeletal : Cervical Spine Motor strength in the deltoid and biceps: Normal right side. Normal Left side Motor strength biceps and the wrist extensors: Normal right side . Normal left side Motor strength in the triceps muscle: Normal right side. Normal left side Deep tendon reflexes: Normal at the biceps. Normal at Brachioradialis. Normal at triceps Vertebral body tenderness to deep palpation over Cervical facet loading test: positive bilaterally Spurling test: positive bilaterally Neck distraction test: positive bilaterally Iman sign: positive bilaterally Lumbar spine Motor strength lower extremities ,thigh and legs 5/5 Right side , 5/5 Left side Deep tendon reflexes : Normal Knee Jerk. Normal Ankle Jerk Vertebral body tenderness over L4 Lumbar facet Loading Test: positive Right / positive Left Range of motion of the lumbar spine Flexion 30 degrees, extension 10 degrees Straight Leg Raise test: Left/ Right positive at degree Sharita test: positive right / positive left. Severe tenderness over the Sacroiliac joint on the Right / Left sides Gaenslen test: positive bilaterally Seated flexion test: positive bilaterally. Sacral spine : Severe tenderness over the Sacroiliac joint: right side / left side Range of motion: Flexion of the lumbar spine <60 degrees Range of motion: Extension of the lumbar spine <20 degrees Gaenslen's Test positive Solitario's Test positive Sharita test: positive right side / left side Thigh Thrust Test Sacral Thrust Test Imaging: MRI without contrast of the lumbar spine from 05/15/22 reviewed Assessment/ Plan : Lumbar stenosis, lumbar spondylosis Recommendation of MONICA L4-L5. May need a series of injections, up to 3 within a six-month timeframe, for optimal pain relief. Risks, benefits of procedure discussed and patient verbalized understanding. Admits to aspirin or anti- coagulant use or medical history of diabetes. Protocol for discontinuation/ continuation of medications armen procedure discussed. All questions answered. I have spent greater than 30 minutes on patient care today. Dr Agustin was available by phone for the evaluation of this patient. The time was used to review the medical records including relevant urine studies and Prescription history (MAPs), review of the available imaging, evaluation and examination of the patient, coordination of care with the medical staff and if applicable referring physicians, as well as creation of the medical record - Pain Location Lower Back Non-Pharmacological Interventions: Heat, Home Exercise, Inactivity, Physical Therapy, Position/Reposition, Sitting, Stretching Pharmacological Interventions: PRN Medication PQRS Narrative: Smoking Status Never smoker Home Medications: Ambulatory Orders Omeprazole [PriLOSEC] 20 mg PO DAILY 01/12/19 Levothyroxine Sodium [Synthroid] 150 mcg PO DAILY 11/10/19 Empagliflozin [Jardiance] 25 mg PO DAILY 12/11/20 Topiramate [Topamax] 100 mg PO DAILY 12/11/20 metFORMIN HCL [Glucophage] 1,000 mg PO BID 12/11/20 Ergocalciferol (Vitamin D2) [Drisdol (50,000 Iu)] 1,250 mcg PO MO 07/14/21 oxyCODONE-APAP 10-325MG [Percocet 10-325 mg] 1 tab PO TID PRN 07/21/21 Fenofibrate Nanocrystallized [Fenofibrate] 145 mg PO DAILY 08/03/21 Dicyclomine [Bentyl] 20 mg PO QID 08/25/21 Insulin Regular [HumuLIN R] 50 units SQ AC-SUPPER 10/16/21 Insulin Regular [HumuLIN R] 100 units SQ AC-BRKFST 10/16/21 Prazosin HCl 2 mg PO HS 10/16/21 Prazosin [Minipress] 1 mg PO HS 10/16/21 Venlafaxine HCl ER [Effexor XR] 75 mg PO BID 10/16/21 Cariprazine HCl [Vraylar] 4.5 mg PO DAILY 01/21/22 Dulaglutide [Trulicity] 4.5 mg SQ WE 01/21/22 Furosemide [Lasix] 20 mg PO DAILY 01/21/22 Ibuprofen [Motrin] 800 mg PO Q8H PRN 01/21/22 Magnesium Oxide 400 mg PO DAILY 01/21/22 Meclizine HCl 25 mg PO BID PRN 01/21/22 Metoprolol Succinate [Metoprolol Succinate ER] 25 mg PO DAILY 01/21/22 Potassium Chloride [Klor-Con M20] 20 meq PO DAILY 01/21/22 Spironolactone 25 mg PO DAILY 01/21/22 Triamterene/Hydrochlorothiazid [Triamterene-Hctz 37.5-25 mg Tb] 1 tab PO BID 01/21/22 cloNIDine HCL 0.1 mg PO DAILY PRN 01/21/22 LORazepam [Ativan] 1 mg PO TID PRN 02/07/22 busPIRone HCL 15 mg PO HS 02/07/22 busPIRone HCL 30 mg PO DAILY 02/07/22 Dicyclomine [Bentyl] 10 mg PO QID #28 capsule 06/13/22 Metoclopramide [Reglan] 10 mg PO ACHS #30 tab 06/13/22 Sulfamethox-Tmp 800-160Mg [Bactrim DS 800-160 mg] 1 tab PO Q12HR #10 tab 06/13/22 Controlled Substance Measures - Controlled Substance Measures Is patient prescribed a controlled substance at discharge?: No
== END ==
LOC: PNWHC3 07:56
PROVIDERS: ATTEND Specialist
DX: M47.816 Spondylosis without myelopathy or radiculopathy, lumbar region (principal); M48.061 Spinal stenosis, lumbar region without neurogenic claudication; E11.9 Type 2 diabetes mellitus without complications; Z79.4 Long term (current) use of insulin; Z79.84 Long term (current) use of oral hypoglycemic drugs; Z88.1 Allergy status to other antibiotic agents; Z88.8 Allergy status to other drugs, medicaments and biological substances; Z88.5 Allergy status to narcotic agent; Z88.2 Allergy status to sulfonamides
CPT/HCPCS: 99211

== ENCOUNTER 2022-06-19 08:12 | Day surgery (SDC) | payer OTHER ==
--- NOTE | 2022-06-19 07:46 | P.GSHP ---
History of Present Illness H&P Date: 06/19/22 CHIEF COMPLAINT: History of intra-abdominal adhesions HISTORY OF PRESENT ILLNESS: The patient is a 52-year-old female who presents with history of intra-abdominal adhesions from multiple prior surgeries including increasing abdominal pain. She now presents for diagnostic laparoscopy including lysis of adhesions. PAST MEDICAL HISTORY: Please see list. PAST SURGICAL HISTORY: Please see list. MEDICATIONS: Please see list. ALLERGIES: Please see list. SOCIAL HISTORY: No illicit drug use FAMILY HISTORY: No reports of Crohn disease or ulcerative colitis. REVIEW OF ORGAN SYSTEMS: CONSTITUTIONAL: No reports of fevers or chills. GI: Denies any blood in stools. Has chronic constipation. PHYSICAL EXAM: VITAL SIGNS: Stable GENERAL: Well-developed pleasant and in no acute distress. HEENT: No scleral icterus. Extraocular movements grossly intact. Moist buccal mucosa. NECK: Supple without lymphadenopathy. CHEST: Unlabored respirations. Equal bilateral excursions. CARDIOVASCULAR: Regular rate and rhythm. Distal 2+ pulses. ABDOMEN: Soft, diffuse abdominal tenderness. No peritonitis. MUSCULOSKELETAL: No clubbing, cyanosis, or edema. ASSESSMENT: 1. Diffuse abdominal pain. 2. History of multiple abdominal surgeries. 3. Intra-abdominal adhesions. PLAN: 1. Robotic lysis of adhesions were described in detail including risk of injury to the intestine, need for further surgery, and open technique. 2. DVT prophylaxis. 3. Antibiotic prophylaxis. 4. She is elevated risk due to multiple co-morbid conditions Past Medical History Past Medical History: Diabetes Mellitus, GERD/Reflux, Hyperlipidemia, Thyroid Disorder Additional Past Medical History / Comment(s): hx ventral hernia, frequent uti's,twisted small bowel, HYPOKALEMIA, pancreatitis History of Any Multi-Drug Resistant Organisms: None Reported Past Surgical History: Bowel Resection, Section, Cholecystectomy, Hernia Repair, Hysterectomy, Joint Replacement, Orthopedic Surgery Additional Past Surgical History / Comment(s): bilat knees replaced,. thymus gland removal,. ventral hernia repair w/ mesh. COLONOSCOPY/EGD Past Anesthesia/Blood Transfusion Reactions: No Reported Reaction Additional Past Anesthesia/Blood Transfusion Reaction / Comment(s): no problems with prior blood transfusion in 1994 Smoking Status: Never smoker - Past Family History Mother Family Medical History: Cancer Additional Family Medical History / Comment(s): lung Father Family Medical History: Myocardial Infarction ([place]) Sister(s) Family Medical History: Cancer Additional Family Medical History / Comment(s): breast Medications and Allergies Home Medications Medication Instructions Recorded Confirmed Type Omeprazole [PriLOSEC] 20 mg PO DAILY 01/12/19 06/17/22 History Levothyroxine Sodium [Synthroid] 150 mcg PO DAILY 11/10/19 06/17/22 History Empagliflozin [Jardiance] 25 mg PO DAILY 12/11/20 06/17/22 History metFORMIN HCL [Glucophage] 1,000 mg PO BID 12/11/20 06/17/22 History Ergocalciferol (Vitamin D2) 1,250 mcg PO MO 07/14/21 06/17/22 History [Drisdol (50,000 Iu)] oxyCODONE-APAP 10-325MG [Percocet 1 tab PO TID PRN 07/21/21 06/17/22 History 10-325 mg] Fenofibrate Nanocrystallized 145 mg PO DAILY 08/03/21 06/17/22 History [Fenofibrate] Dicyclomine [Bentyl] 20 mg PO QID 08/25/21 06/17/22 History Insulin Regular [HumuLIN R] 110 units SQ AC-BRKFST 10/16/21 06/17/22 History Prazosin HCl 2 mg PO HS 10/16/21 06/17/22 History Prazosin [Minipress] 1 mg PO HS 10/16/21 06/17/22 History Venlafaxine HCl ER [Effexor XR] 75 mg PO BID 10/16/21 06/17/22 History Cariprazine HCl [Vraylar] 4.5 mg PO DAILY 01/21/22 06/17/22 History Dulaglutide [Trulicity] 4.5 mg SQ WE 01/21/22 06/17/22 History Furosemide [Lasix] 20 mg PO DAILY 01/21/22 06/17/22 History Ibuprofen [Motrin] 800 mg PO Q8H PRN 01/21/22 06/17/22 History Magnesium Oxide 400 mg PO DAILY 01/21/22 06/17/22 History Meclizine HCl 25 mg PO BID PRN 01/21/22 06/17/22 History Metoprolol Succinate [Metoprolol 25 mg PO DAILY 01/21/22 06/17/22 History Succinate ER] Potassium Chloride [Klor-Con M20] 20 meq PO DAILY 01/21/22 06/17/22 History Spironolactone 25 mg PO DAILY 01/21/22 06/17/22 History Triamterene/Hydrochlorothiazid 1 tab PO BID 01/21/22 06/17/22 History [Triamterene-Hctz 37.5-25 mg Tb] LORazepam [Ativan] 1 mg PO TID PRN 02/07/22 06/17/22 History busPIRone HCL 15 mg PO HS 02/07/22 06/17/22 History busPIRone HCL 30 mg PO DAILY 02/07/22 06/17/22 History Metoclopramide [Reglan] 10 mg PO ACHS #30 tab 06/13/22 06/17/22 Rx Sulfamethox-Tmp 800-160Mg [Bactrim 1 tab PO Q12HR #10 tab 06/13/22 06/17/22 Rx DS 800-160 mg] Allergies Allergy/AdvReac Type Severity Reaction Status Date / Time bupropion [From Wellbutrin] Allergy Rash/Hives Verified 06/17/22 11:33 cephalexin [From Keflex] Allergy Rash/Hives Verified 06/17/22 11:33 propoxyphene Allergy Rash/Hives Verified 06/17/22 11:33 [From Darvocet-N] sertraline [From Zoloft] Allergy Unknown Verified 06/17/22 11:33
[~2022-06-19 08:12] MED LIST changes: -ACETAMINOPHEN TAB 500 MG TAB PO PRN; +ACETAMINOPHEN TAB 500 MG TAB PO STA; -DEXAMETHASONE SOD PHOSPHATE 4 MG/ML 1 ML VIAL IV ONE; -GABAPENTIN 300 MG CAP PO PRN; +GABAPENTIN 300 MG CAP PO STA; -LACTATED RINGERS 1,000 ML IV SCH; -MELOXICAM 7.5 MG TAB PO PRN; -MIDAZOLAM 2 MG/2 ML VIAL IV PRN; -ONDANSETRON 4 MG/2 ML VIAL IVP ONE; -SCOPOLAMINE 1 MG/72 HR PATCH TRANSDERM ONE; -SCOPOLAMINE 1 MG/72 HR PATCH TRANSDERM PRN; +SCOPOLAMINE 1 MG/72 HR PATCH TRANSDERM STA; +diphenhydrAMINE 50 MG/ML 1 ML VIAL IVP STA
[2022-06-19] MEDS ORDERED: LACTATED RINGERS 1,000 ML IV SCH (08:36)
[2022-06-19] MEDS ORDERED: HYDROmorphone 0.5 MG/0.5 ML SYRINGE IVP PRN (08:36)
[2022-06-19] MEDS ORDERED: ONDANSETRON 4 MG/2 ML VIAL IVP ONE (08:36)
[2022-06-19] MEDS ORDERED: MIDAZOLAM 2 MG/2 ML VIAL IV PRN (08:36)
[2022-06-19] MEDS ORDERED: SCOPOLAMINE 1 MG/72 HR PATCH TRANSDERM ONE (08:36)
[2022-06-19] MEDS ORDERED: DEXAMETHASONE SOD PHOSPHATE 4 MG/ML 1 ML VIAL IV ONE (08:36)
[2022-06-19] MEDS ORDERED: MELOXICAM 7.5 MG TAB PO SCH (09:00)
[2022-06-19 10:07] LABS: Glucose,Whole Blood 66 mg/dL (70-110)
[2022-06-19] MEDS ORDERED: DEXTROSE 50% SYRINGE 50 ML IVP ONE (10:15)
[2022-06-19] MEDS ORDERED: MIDAZOLAM 2 MG/2 ML VIAL IVP ONE (10:46)
[2022-06-19 11:03] LABS: Glucose,Whole Blood 77 mg/dL (70-110)
[2022-06-19] MEDS ORDERED: LIDOCAINE 1%-EPI 1:100,000 20 ML VIAL SQ ONE ×2 (11:06→12:07)
[2022-06-19] MEDS ORDERED: fentaNYL (PF) 50 MCG/ML 2 ML AMP ONE (11:20)
[2022-06-19] MEDS ORDERED: SUCCINYLCHOLINE CHLORIDE 200 MG/10 ML VIAL IV ONE (11:20)
[2022-06-19] MEDS ORDERED: ROPIVACAINE 5 MG/ML 30 ML VIAL ONE (11:20)
[2022-06-19] MEDS ORDERED: PROPOFOL 10 MG/ML 20 ML VIAL IV ONE (11:20)
[2022-06-19] MEDS ORDERED: ROCURONIUM 10 MG/ML (5 ML VIAL) IV ONE (11:20)
[2022-06-19] MEDS ORDERED: PHENYLEPHRINE-0.9% NACL SYG 1,000 MCG/10 ML SYRINGE ONE (11:20)
[2022-06-19] MEDS ORDERED: NEOSTIGMINE 1 MG/ML 10 ML VIAL ONE (11:20)
[2022-06-19] MEDS ORDERED: DEXAMETHASONE SOD PHOSPHATE 4 MG/ML 1 ML VIAL ONE (11:20)
[2022-06-19] MEDS ORDERED: MIDAZOLAM 2 MG/2 ML VIAL ONE (11:20)
[2022-06-19] MEDS ORDERED: GLYCOPYRROLATE 0.2 MG/ML 2 ML VIAL ONE (11:20)
[2022-06-19] MEDS ORDERED: LIDOCAINE 2% INJ 20 MG/ML (2 ML VIAL) ONE (11:20)
--- NOTE | 2022-06-19 11:48 | P.ANPRN ---
Procedure Note - Anesthesia - Nerve Block Performed Bilateral Erector Spinae Single Time Out Performed: Yes Date of Procedure: 06/19/22 Procedure Start Time: 10:45 Procedure Stop Time: 10:59 Location of Patient: PreOp Indication: Acute Post-Operative Pain, Requested by Surgeon Sedation Type: Sedate with meaningful contact maintained Preparation: Sterile Prep, Sterile Dressing Position: Prone Catheter: None Needle Types: Facet Needle Gauge: 20 Ultrasound used to visualize needle placement: Yes Ultrasound used to observe medication spread: Yes Injectate: Other (see comment) (0.25% ropivacaine 25 ml + 2 mg decadron per side) Blood Aspirated: No Pain Paresthesia on Injection Noted: No Resistance on Injection: Normal Image Stored and Saved: Yes Events: Uneventful and Well Tolerated
[2022-06-19 12:11] LABS: Glucose,Whole Blood 67 mg/dL (70-110)
[2022-06-19] MEDS ORDERED: LACTATED RINGERS 1,000 ML IV ONE (12:30)
[2022-06-19 13:10] LABS: Glucose,Whole Blood 126 mg/dL (70-110)
[2022-06-19 13:29] VITALS: TEMP 97
[2022-06-19 13:42] LABS: Glucose,Whole Blood 150 mg/dL (70-110)
[2022-06-19 14:52] VITALS: RESP 20
[2022-06-19] MEDS ORDERED: KETOROLAC 15 MG/ML 1 ML VIAL ONE (15:08)
[2022-06-19] MEDS ORDERED: HYDROmorphone 0.5 MG/0.5 ML SYRINGE IVP ONE (15:15)
[2022-06-19] MEDS ORDERED: KETOROLAC 15 MG/ML 1 ML VIAL IVP ONE (15:25)
[2022-06-19 15:34] LABS: Glucose,Whole Blood 177 mg/dL (70-110)
[2022-06-19 16:10] VITALS: BP 130/77; PULSE 93
--- NOTE | 2022-06-19 19:26 | P.OP ---
Date of Procedure: 06/19/22 Description of Procedure: SURGEON: YARELIS HERNANDES MD PREOPERATIVE DIAGNOSES: 1. Intractable severe epigastric and lower abdominal pain due to adhesions 2. History of multiple abdominal surgeries 3. History of peritoneal adhesions 4. Diabetes type 2, insulin-dependent with prior hyperglycemia 5. Morbid obesity due to excess calories, BMI 47.3 6. Depressive disorder 7. Hypertensive heart disease 8. Seizure disorder 9. Panniculitis 10. Irritable bowel syndrome 11. Hyperlipidemia 12. Diabetic neuropathy 13. Gastroesophageal reflux disease 14. Hypothyroidism 15. Generalized anxiety disorder 16. Panic disorder 17. Posttraumatic stress disorder 18. Schizophrenia 19. Schizoaffective disorder 20. Recurrent incisional hernia POSTOPERATIVE DIAGNOSES: 1. Intractable severe epigastric and lower abdominal pain due to adhesions 2. History of multiple abdominal surgeries 3. History of peritoneal adhesions 4. Diabetes type 2, insulin-dependent with prior hyperglycemia 5. Morbid obesity due to excess calories, BMI 47.3 6. Depressive disorder 7. Hypertensive heart disease 8. Seizure disorder 9. Panniculitis 10. Irritable bowel syndrome 11. Hyperlipidemia 12. Diabetic neuropathy 13. Gastroesophageal reflux disease 14. Hypothyroidism 15. Generalized anxiety disorder 16. Panic disorder 17. Posttraumatic stress disorder 18. Schizophrenia 19. Schizoaffective disorder 20. Recurrent incisional hernia OPERATION: 1. Robotic-assisted da Black Xi laparoscopic extensive lysis of adhesions over 1.5 hr COMPLICATIONS: None. Anesthesia: GETA, local Estimated Blood Loss (ml): 30 Pathology: none sent Condition: stable Disposition: same day OPERATIVE FINDINGS: 1. Severe peritoneal adhesions small bowel to the abdominal wall. 2. Severe pelvic sigmoid colon to the pelvis 3. Greater omental adhesions to the abdominal wall 4. No recurrent incisional hernia of the lower abdomen 5. Appendix identified along the right pelvis and within normal limits 6. Colon and small bowel adherent to the right lower pelvis 7. Colon and small bowel released along the left pelvis and bladder OPERATIVE FINDINGS: 1. Severe peritoneal adhesions small bowel to the mid and lower abdominal wall. 2. Severe pelvic adhesions sigmoid colon to the pelvis 3. Greater omental adhesions to the abdominal wall 4. No recurrent incisional hernia of the lower abdomen 5. Appendix identified along the right pelvis and within normal limits 6. Colon and small bowel adherent to the left lower pelvis 7. Multiple small 5 mm swish cheese defects of the midline with incarceration INDICATIONS: The patient is a 52-year-old female who presents with recurrent intractable epigastric and bilateral lower abdominal pain. In the past 2 weeks, she had gone to the emergency room due to recurrent intractable abdominal pain. She has personal history of multiple abdominal surgeries. Robotic assisted laparoscopic approach was described. Benefits and risks of the procedure including but not limited to bleeding, infection, injury to the small or large bowel was described. Informed consent was obtained. DESCRIPTION OF PROCEDURE: Patient was brought to the operating room, placed in supine position. After general induction, the abdomen had been prepped and draped in standard sterile fashion. The robotic da Black XI system was primed. After a timeout protocol was performed, the patient had been prepped and draped in standard sterile fashion. The robot was docked along the right lateral abdomen. The patient was repositioned in reverse Trendelenburg position of 7-degrees. A 5 mm 0 degrees laparoscopic trocar entry was performed along the left upper quadrant. The abdomen was insufflated to 15 mmHg pressure which was tolerated well. Diagnostic laparoscopy demonstrated severe intra-abdominal adhesions involving the epigastrium, midline and bilateral pelvis. Next, three 8 mm robotic ports were placed along the left lateral abdominal wall as the 5 mm trocar was placed using a robotic trocar. Please note that the ports were placed at least 10-cm away from the target anatomy. Instruments were interchanged using only 3 ports for a grasper, vessel sealer, and scissors with cautery. Instruments were interchanged by the visitor services information assistant including Bovie cautery scissors. I had sat at the console. Extensive lysis of adhesions over 1.5 hour was performed. Adhesions along the epigastrium and lower abdominal wall were divided using blunt dissection in cluding vessel sealer. Multiple [place] cheese defects 5 mm were found along the midline with recurrent incisional hernia. Small bowel was adherent along the left lower quadrant and from the abdominal wall. Additionally, small bowel was found adherent to the left lower quadrant and prior mesh. Careful lysis of adhesions was performed. Carefully the adhesions were taken down without injury to the small or large bowel using vessel sealer and cautery on scissors. The robot was undocked. The 12 mm trocar site was less than 8-mm. All pneumoperitoneum and instruments were evacuated from the abdominal cavity. The incisions were reapproximated using 4-0 Monocryl in an interrupted subcuticular fashion. Please note along the trocar sites, local anesthetic was placed as a field block prior to insertion of all instruments. Liquid glue was applied to the skin. At the end of the procedure needle, sponge, and instrument count had been verified correct by the director surgical. The patient was transferred to postanesthesia care unit in stable condition. Intraoperative images including findings were described to the patients family. Plan - Discharge Summary Discharge Rx Participant: No New Discharge Prescriptions: New Acetaminophen Tab [Tylenol Tab] 1,000 mg PO Q6HR PRN #30 tablet PRN Reason: Pain Simethicone [Gas-X] 125 mg PO AC-TID PRN #20 capsule PRN Reason: Pain Continue Omeprazole [PriLOSEC] 20 mg PO DAILY Levothyroxine Sodium [Synthroid] 150 mcg PO DAILY metFORMIN HCL [Glucophage] 1,000 mg PO BID Empagliflozin [Jardiance] 25 mg PO DAILY oxyCODONE-APAP 10-325MG [Percocet 10-325 mg] 1 tab PO TID PRN PRN Reason: Pain Insulin Regular [HumuLIN R] 110 units SQ AC-BRKFST Prazosin [Minipress] 1 mg PO HS Prazosin HCl 2 mg PO HS Triamterene/Hydrochlorothiazid [Triamterene-Hctz 37.5-25 mg Tb] 1 tab PO BID Potassium Chloride [Klor-Con M20] 20 meq PO DAILY Furosemide [Lasix] 20 mg PO DAILY Cariprazine HCl [Vraylar] 4.5 mg PO DAILY busPIRone HCL 30 mg PO DAILY Metoclopramide [Reglan] 10 mg PO ACHS #30 tab Ergocalciferol (Vitamin D2) [Drisdol (50,000 Iu)] 1,250 mcg PO MO Fenofibrate Nanocrystallized [Fenofibrate] 145 mg PO DAILY Dicyclomine [Bentyl] 20 mg PO QID Venlafaxine HCl ER [Effexor XR] 75 mg PO BID Dulaglutide [Trulicity] 4.5 mg SQ WE Spironolactone 25 mg PO DAILY Metoprolol Succinate [Metoprolol Succinate ER] 25 mg PO DAILY Meclizine HCl 25 mg PO BID PRN PRN Reason: Vertigo Magnesium Oxide 400 mg PO DAILY Ibuprofen [Motrin] 800 mg PO Q8H PRN PRN Reason: Pain busPIRone HCL 15 mg PO HS LORazepam [Ativan] 1 mg PO TID PRN PRN Reason: Anxiety Sulfamethox-Tmp 800-160Mg [Bactrim DS 800-160 mg] 1 tab PO Q12HR #10 tab Discharge Medication List Omeprazole [PriLOSEC] 20 mg PO DAILY 01/12/19 [History] Levothyroxine Sodium [Synthroid] 150 mcg PO DAILY 11/10/19 [History] Empagliflozin [Jardiance] 25 mg PO DAILY 12/11/20 [History] metFORMIN HCL [Glucophage] 1,000 mg PO BID 12/11/20 [History] Ergocalciferol (Vitamin D2) [Drisdol (50,000 Iu)] 1,250 mcg PO MO 07/14/21 [History] oxyCODONE-APAP 10-325MG [Percocet 10-325 mg] 1 tab PO TID PRN 07/21/21 [History] Fenofibrate Nanocrystallized [Fenofibrate] 145 mg PO DAILY 08/03/21 [History] Dicyclomine [Bentyl] 20 mg PO QID 08/25/21 [History] Insulin Regular [HumuLIN R] 110 units SQ AC-BRKFST 10/16/21 [History] Prazosin HCl 2 mg PO HS 10/16/21 [History] Prazosin [Minipress] 1 mg PO HS 10/16/21 [History] Venlafaxine HCl ER [Effexor XR] 75 mg PO BID 10/16/21 [History] Cariprazine HCl [Vraylar] 4.5 mg PO DAILY 01/21/22 [History] Dulaglutide [Trulicity] 4.5 mg SQ WE 01/21/22 [History] Furosemide [Lasix] 20 mg PO DAILY 01/21/22 [History] Ibuprofen [Motrin] 800 mg PO Q8H PRN 01/21/22 [History] Magnesium Oxide 400 mg PO DAILY 01/21/22 [History] Meclizine HCl 25 mg PO BID PRN 01/21/22 [History] Metoprolol Succinate [Metoprolol Succinate ER] 25 mg PO DAILY 01/21/22 [History] Potassium Chloride [Klor-Con M20] 20 meq PO DAILY 01/21/22 [History] Spironolactone 25 mg PO DAILY 01/21/22 [History] Triamterene/Hydrochlorothiazid [Triamterene-Hctz 37.5-25 mg Tb] 1 tab PO BID 01/21/22 [History] LORazepam [Ativan] 1 mg PO TID PRN 02/07/22 [History] busPIRone HCL 15 mg PO HS 02/07/22 [History] busPIRone HCL 30 mg PO DAILY 02/07/22 [History] Metoclopramide [Reglan] 10 mg PO ACHS #30 tab 06/13/22 [Rx] Sulfamethox-Tmp 800-160Mg [Bactrim DS 800-160 mg] 1 tab PO Q12HR #10 tab 06/13/22 [Rx] Acetaminophen Tab [Tylenol Tab] 1,000 mg PO Q6HR PRN #30 tablet 06/19/22 [Rx] Simethicone [Gas-X] 125 mg PO AC-TID PRN #20 capsule 06/19/22 [Rx] Follow up Appointment(s)/Referral(s): Yarelis Hernandes MD [STAFF PHYSICIAN] - 06/23/22 (TELEHEALTH) Patient Instructions/Handouts: *[facility] - Managing Your Pain After Surgery Without Opioids, *[facility] - (Anesthesia) Discharge Instructions Outpatient Surgery, Lysis of Abdominal Adhesions (DC) Activity/Diet/Wound Care/Special Instructions: No lifting over 10 pounds in 1 weeks until Jun 26. September shower. No bath tub soaks for 1 week until Jun 26. Diet as tolerated. Use Tylenol, simethicone and ibuprofen or Aleve scheduled for the next 24-48 hours for best pain relief. Use ice along incisions for today to prevent swelling. PT HAD TYLENOL AT 10.18 CAN HAVE AT 4:18PM AGAIN. PT HAD TORADOL (IV MOTRIN) AT 3:25. CAN HAVE AGAIN AT 8 HOURS -11:25PM Discharge Disposition: HOME SELF-CARE
== END 2022-06-19 16:04 | disposition home or self-care (01) ==
LOC: OR 08:12
PROVIDERS: ATTEND Surgery Plastic and Reconstructive Surgery
DX: K66.0 Peritoneal adhesions (postprocedural) (postinfection) (principal); E11.9 Type 2 diabetes mellitus without complications; K21.9 Gastro-esophageal reflux disease without esophagitis; E78.5 Hyperlipidemia, unspecified; E07.9 Disorder of thyroid, unspecified; F43.10 Post-traumatic stress disorder, unspecified; F20.9 Schizophrenia, unspecified; E03.9 Hypothyroidism, unspecified; E11.40 Type 2 diabetes mellitus with diabetic neuropathy, unspecified; E66.01 Morbid (severe) obesity due to excess calories; F32.A Depression, unspecified; F41.0 Panic disorder [episodic paroxysmal anxiety]; F41.1 Generalized anxiety disorder; G40.909 Epilepsy, unspecified, not intractable, without status epilepticus; I11.9 Hypertensive heart disease without heart failure; K43.2 Incisional hernia without obstruction or gangrene; K58.9 Irritable bowel syndrome, unspecified; M79.3 Panniculitis, unspecified; Z68.42 Body mass index [BMI] 45.0-49.9, adult; Z82.49 Family history of ischemic heart disease and other diseases of the circulatory system; Z87.440 Personal history of urinary (tract) infections; Z90.49 Acquired absence of other specified parts of digestive tract; Z79.890 Hormone replacement therapy; Z79.84 Long term (current) use of oral hypoglycemic drugs; Z79.1 Long term (current) use of non-steroidal anti-inflammatories (NSAID); Z79.899 Other long term (current) drug therapy; Z79.4 Long term (current) use of insulin; Z88.1 Allergy status to other antibiotic agents; Z88.8 Allergy status to other drugs, medicaments and biological substances
CPT/HCPCS: 84132; 44180; J2250; J1100; J0690; J2405; J1885; J1170; J1644

== ENCOUNTER → 2022-07-01 | Outpatient (CLI) | payer OTHER ==
--- NOTE | 2022-07-01 11:47 | P.SLEEP ---
History of Present Illness DATE: 07/01/2022 CONSULTATION/NEW PATIENT EVALUATION HISTORY OF PRESENT ILLNESS/SLEEP-WAKE EVALUATION: 52-year-old lady had been ev aluated in the sleep center for possible obstructive sleep apnea hypopnea syndrome. Patient has history of obstructive sleep apnea [place]op[place], she quit CPAP therapy about 5 years ago, her equipment was lost. SLEEP SCHEDULE: Usually sleep schedule from 1- 2 AM until 8 AM. FALLING ASLEEP: Patient has problems with falling asleep, has TV set and bedroom. DURING SLEEP: Patient sleeps on the back and side position with loud snoring and multiple awakenings from sleep up to 6 times with nocturia. Positive history of night manners, restless leg symptoms, sweating, panic attacks, dry mouth. No history of hypnogogical hallucinations, sleep paralysis, or cataplexy. DURING THE DAY/WAKE STATE: In the morning patient wake up tired, falling asleep during the day, has problems with concentration, irritability, claustrophobia. [place] sleepiness scale is 16, which indicates significant sleepiness. Patient may take up to 3 naps during the day usually afternoon. PAST MEDICAL HISTORY: Hypertension, diabetes mellitus, peptic ulcer disease, bipolar, see his affect to disorder, back problems, hypothyroidism. PAST SURGICAL HISTORY: Stomach surgeries for peptic ulcer disease, cholecystectomy, tonsillectomy, Thymus has been removed. MEDICATIONS: Metoprolol 25 mg once a day, trazodone 100 mg once a day, venlafaxine 75 mg twice a day buspirone 30 mg twice a day, omeprazole 20 mg once a day, metformin 1000 mg twice a day, levothyroxine 150 g once a day, furosemide 20 mg once a day, oxycodone acetaminophen 10711 milligrams 3 times a day. SOCIAL HISTORY: Negative for smoking or using alcohol . FAMILY HISTORY: Hypertension, epilepsy, stroke, asthma, cancer, lung problems. REVIEW OF SYSTEMS: Loud snoring, multiple awakenings from sleep, sleepiness during the day, back pain. No fevers. No double vision. No recent chest pain. No shortness of breath. No abdominal pain. No bleeding episodes. No blood in urine. No seizure episodes. PHYSICAL EXAMINATION: GENERAL: A pleasant patient without any distress. VITAL SIGNS: BP 126/84, HR 106, RR 15, weight 256.6 pounds, height 5 foot 2 inches, body mass index 46.8. HEENT: PERRLA, EOMI. Evaluation of oropharynx showed tongue protrudes midline, low position of soft palate Mallampati 4. NECK: Supple. No JVD. Thyroid is not palpable. 19.5 inches in circumference. LUNGS: Clear to percussion and to auscultation. Good air exchange. No wheezing or rhonchi. HEART: S1, S2 regular. No murmurs, gallops or rubs. ABDOMEN: Soft and nontender. Bowel sounds are present. No organomegaly appreciated. Obese EXTREMITIES: No clubbing or cyanosis. MANAGER APPOINTMENT: Awake, alert, and oriented x3. Cranial nerves 2 to 7 intact. There is no fasciculation or atrophy noted. No focal deficits observed. ASSESSMENT: 1. Loud snoring, multiple awakenings from sleep, extremely low position of soft palate Mallampati 4, extremely wide neck 19.5 inches, significant sleepiness [place] Sleepiness Scale is 16. History of obstructive sleep apnea in the past. Obstructive sleep apnea hypopnea syndrome. 2. Obesity body mass index 46.8. Patient is preparing for possible bariatric surgery. 3. Hypertension. 4. Diabetes mellitus. 5 peptic ulcer disease status post several stomach surgery. 6 . Hypothyroidism. 7. Bipolar. 8. Schysoaffective disorder. 9 . Back problems and back pain. 10. Status post bilateral knee replacement. 11. Status post tonsillectomy. 12. Status post cholecystectomy. 13. Status post thymus removed. PLAN: 1. Polysomnography for evaluation of patient's breathing during sleep. 2. CPAP/BiPAP titration if sleep study confirms obstructive sleep apnea- hypopnea syndrome. 3. Preferable position during sleep on the side. 4. No driving if patient feels any sleepiness. Patient is aware of civil and criminal liability for unsafe driving. 5. Sleep hygiene with regular sleep time for at least 7.5-8 hours. 6. Watching and aggressive losing weight. Thank you very much for referring this patient for consultation. Sincerely, Branden Seth MD, PhD, FAASM. Diplomat of [place] [employer], Sleep Medicine Board by [place] [employer] [place] [employer] [facility] [place] Past Medical History Past Medical History: Diabetes Mellitus, GERD/Reflux, Hyperlipidemia, Thyroid Disorder Additional Past Medical History / Comment(s): hx ventral hernia, frequent uti's,twisted small bowel, HYPOKALEMIA, pancreatitis History of Any Multi-Drug Resistant Organisms: None Reported Past Surgical History: Bowel Resection, Section, Cholecystectomy, Hernia Repair, Hysterectomy, Joint Replacement, Orthopedic Surgery Additional Past Surgical History / Comment(s): bilat knees replaced,. thymus gland removal,. ventral hernia repair w/ mesh. COLONOSCOPY/EGD Past Anesthesia/Blood Transfusion Reactions: No Reported Reaction Additional Past Anesthesia/Blood Transfusion Reaction / Comment(s): no problems with prior blood transfusion in 1994 Smoking Status: Never smoker - Past Family History Mother Family Medical History: Cancer Additional Family Medical History / Comment(s): lung Father Family Medical History: Myocardial Infarction ([place]) Sister(s) Family Medical History: Cancer Additional Family Medical History / Comment(s): breast Medications and Allergies Home Medications Medication Instructions Recorded Confirmed Type Omeprazole [PriLOSEC] 20 mg PO DAILY 01/12/19 06/17/22 History Levothyroxine Sodium [Synthroid] 150 mcg PO DAILY 11/10/19 06/17/22 History Empagliflozin [Jardiance] 25 mg PO DAILY 12/11/20 06/17/22 History metFORMIN HCL [Glucophage] 1,000 mg PO BID 12/11/20 06/17/22 History Ergocalciferol (Vitamin D2) 1,250 mcg PO MO 07/14/21 06/17/22 History [Drisdol (50,000 Iu)] oxyCODONE-APAP 10-325MG [Percocet 1 tab PO TID PRN 07/21/21 06/17/22 History 10-325 mg] Fenofibrate Nanocrystallized 145 mg PO DAILY 08/03/21 06/17/22 History [Fenofibrate] Dicyclomine [Bentyl] 20 mg PO QID 08/25/21 06/17/22 History Insulin Regular [HumuLIN R] 110 units SQ AC-BRKFST 10/16/21 06/17/22 History Prazosin HCl 2 mg PO HS 10/16/21 06/17/22 History Prazosin [Minipress] 1 mg PO HS 10/16/21 06/17/22 History Venlafaxine HCl ER [Effexor XR] 75 mg PO BID 10/16/21 06/17/22 History Cariprazine HCl [Vraylar] 4.5 mg PO DAILY 01/21/22 06/17/22 History Dulaglutide [Trulicity] 4.5 mg SQ WE 01/21/22 06/17/22 History Furosemide [Lasix] 20 mg PO DAILY 01/21/22 06/17/22 History Ibuprofen [Motrin] 800 mg PO Q8H PRN 01/21/22 06/17/22 History Magnesium Oxide 400 mg PO DAILY 01/21/22 06/17/22 History Meclizine HCl 25 mg PO BID PRN 01/21/22 06/17/22 History Metoprolol Succinate [Metoprolol 25 mg PO DAILY 01/21/22 06/17/22 History Succinate ER] Potassium Chloride [Klor-Con M20] 20 meq PO DAILY 01/21/22 06/17/22 History Spironolactone 25 mg PO DAILY 01/21/22 06/17/22 History Triamterene/Hydrochlorothiazid 1 tab PO BID 01/21/22 06/17/22 History [Triamterene-Hctz 37.5-25 mg Tb] LORazepam [Ativan] 1 mg PO TID PRN 02/07/22 06/17/22 History busPIRone HCL 15 mg PO HS 02/07/22 06/17/22 History busPIRone HCL 30 mg PO DAILY 02/07/22 06/17/22 History Metoclopramide [Reglan] 10 mg PO ACHS #30 tab 06/13/22 06/17/22 Rx Sulfamethox-Tmp 800-160Mg [Bactrim 1 tab PO Q12HR #10 tab 06/13/22 06/17/22 Rx DS 800-160 mg] Acetaminophen Tab [Tylenol Tab] 1,000 mg PO Q6HR PRN #30 tablet 06/19/22 Rx Simethicone [Gas-X] 125 mg PO AC-TID PRN #20 capsule 06/19/22 Rx Allergies Allergy/AdvReac Type Severity Reaction Status Date / Time bupropion [From Wellbutrin] Allergy Rash/Hives Verified 06/19/22 09:39 cephalexin [From Keflex] Allergy Rash/Hives Verified 06/19/22 09:39 propoxyphene Allergy Rash/Hives Verified 06/19/22 09:39 [From Darvocet-N] sertraline [From Zoloft] Allergy Unknown Verified 06/19/22 09:39 Sleep Note - Sleep Note Sleep Note: Temperature: Pulse Rate: Respiratory Rate: Blood Pressure: SpO2: Height: Weight: BMI: Neck Circumference:
== END ==
LOC: SLEEP 11:00
PROVIDERS: ATTEND Internal Medicine
DX: G47.33 Obstructive sleep apnea (adult) (pediatric) (principal); E66.9 Obesity, unspecified; Z68.42 Body mass index [BMI] 45.0-49.9, adult; I10 Essential (primary) hypertension; Z87.11 Personal history of peptic ulcer disease; E11.9 Type 2 diabetes mellitus without complications; E03.9 Hypothyroidism, unspecified; F31.9 Bipolar disorder, unspecified; M54.9 Dorsalgia, unspecified; F25.9 Schizoaffective disorder, unspecified; Z96.653 Presence of artificial knee joint, bilateral; Z90.89 Acquired absence of other organs; Z99.89 Dependence on other enabling machines and devices; Z79.899 Other long term (current) drug therapy; Z79.84 Long term (current) use of oral hypoglycemic drugs; Z79.890 Hormone replacement therapy; Z88.8 Allergy status to other drugs, medicaments and biological substances; Z88.1 Allergy status to other antibiotic agents; Z88.2 Allergy status to sulfonamides
CPT/HCPCS: 99211

== ENCOUNTER → 2022-10-14 | Outpatient (CLI) | payer OTHER ==
--- NOTE | 2022-10-14 16:14 | P.PN ---
Subjective DATE: 10/14/2022 FOLLOW UP VISIT. Patient with obstructive sleep apnea hypopnea syndrome return to sleep center for follow-up visit. Patient recently had polysomnogram, which showed extremely severe obstructive sleep apnea hypopnea syndrome. Patient had CPAP titration and subsequently received CPAP unit. Today is first visit after patient started to use CPAP equipment. I explained results of sleep studies to the patient in details. Patient was not able to use CPAP equipment mostly because of the pressure according to the patient. I checked information from PAP unit. PAP unit pressure 8-14, average 9.1 cm H2O. Usage is totally about 6 days for about 1.5 hour per night. Leak is 34.6 l/m. Apnea Hypopnea Index is 0.3, which is normal. MEDICATIONS:1. Metoprolol 2. Venlafaxine 3. Buspirone 4. Omeprazole 5. Metformin 6. Levothyroxine 7. Furosemide 8. Oxycodone During physical exam: GENERAL: A pleasant patient without any distress. VITAL SIGNS: BP 122/73, HR 103, RR 16 , weight 254.6, temperature 96.5, oxygen saturation at room air 94 % . HEENT: PERRLA, EOMI.low position of soft palate, Mallapati 4 . NECK: Supple. No JVD. LUNGS: Clear to percussion and to auscultation. Good air exchange. No wheezing or rhonchi. HEART: S1, S2 regular. ABDOMEN: Soft and nontender. Obese EXTREMITIES: No clubbing or cyanosis. ADDICTION SPECIALIST: Awake, alert, and oriented x3. No focal deficit. Impressions: 1. Obstructive sleep apnea-hypopnea syndrome in extremely severe range, apnea- hypopnea index 92.1. On BiPAP respiration normalized, but patient was not able to use BiPAP equipment secondary to level of pressure according to patient. 2. Obesity. 3. Hypertension. 4. Diabetes mellitus. 5. History of peptic ulcer disease. 6. Hypothyroidism. 7. Bipolar. 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 9. Status post bilateral knee replacement. 10. Back problems and back pain. I decreased level of pressure in BiPAP unit to the range 6-11 centimeters of water Plan: 1. Continue using PAP equipment every night for the whole night, patient promised to follow recommendations. 2. Patient should have another 90 days for BiPAP trial 3. PAP unit should stay lower then position of the head. 4. Advised patient to remove all remaining water from humidifier canister daily and make it dry after each usage. Refill canister with fresh distilled water bef ore each usage. 5. Sleep hygiene with regular time in bed for at least 8 hours. 6. Precautions related to driving. No driving if feel any sleepiness. 7. I will maintain prescription for PAP supplies including mask, tube, filters. 8. Follow up visit in 2 months or earlier if patient has any problems. 9. Watching and losing weight. Thank you very much for allowing me to participate in the management of your patient. Branden Seth MD, PhD, FAASM. Diplomat of [place] [employer], Sleep Medicine Board by [place] [employer] [facility] Kimberly
== END ==
LOC: SLEEP 14:28
PROVIDERS: ATTEND Internal Medicine
DX: G47.33 Obstructive sleep apnea (adult) (pediatric) (principal); E66.9 Obesity, unspecified; I10 Essential (primary) hypertension; E11.9 Type 2 diabetes mellitus without complications; Z98.890 Other specified postprocedural states; E03.9 Hypothyroidism, unspecified; F31.9 Bipolar disorder, unspecified; Z96.653 Presence of artificial knee joint, bilateral; M54.9 Dorsalgia, unspecified; Z99.89 Dependence on other enabling machines and devices; Z79.899 Other long term (current) drug therapy; Z79.84 Long term (current) use of oral hypoglycemic drugs; Z88.6 Allergy status to analgesic agent; Z88.1 Allergy status to other antibiotic agents; Z88.8 Allergy status to other drugs, medicaments and biological substances
CPT/HCPCS: 99212

== ENCOUNTER → 2022-11-18 | Outpatient (CLI) | payer OTHER ==
[2022-11-18 10:47] VITALS: BP 117/78; PULSE 93; RESP 18; TEMP 97.6
--- NOTE | 2022-11-18 13:29 | P.PAINPG ---
PQRS Measure Charge Sheet Comment: A 52 yr old female with a history of severe and chronic LBP x 1 yr secondary to lumbar DDD and spondylosis with facet arthropathy without myelopathy presents today for LBP. Pain level is provoked at 8 /10 in intensity, constant, localized in the lumbar spine, sharp in character w shooting towards the BLEs. Pain is provoked by walking/ standing for periods of 15 min or more. Pain is alleviated with PT x 6 wks in Jul 2022, heat, ice, meds (Percocet), use of a walker for ambulatory assistance, repositioning and rest. Interventional pain procedures completed include MONICA L4-L5 x1 Patient is currently on Percocet Patient denies any side effects of the medication(s), denies excessive drowsiness or sleepiness, denies suicidal ideation and reports that the current pain medication is helping to control the pain and improve activities of daily living. Patient denies any motor or sensory deficits. Patient denies any fever or night sweats, denies any change in the bowel movements or urination. Physical Examination: -Constitutional: Cooperative. Not in acute distress . - Neurologic: Cranial nerve II to XII intact. No focal neurological deficits. - Psychatric: Alert & oriented x 3. Matching mood & appropriate affect. Judgment and insight intact. - Musculoskeletal: Cervical spine: Muscle bulk/ tone/ strength in the bilateral upper extremities normal Vertebral body tenderness to palpation over Spurling test positive Distraction test positive Facet loading test positive TTP Thoracic spine Muscle bulk / tone/ strength in the bilateral paraspinal muscles normal Vertebral body tender to palpation over Facet loading test positive TTP Lumbar spine: Motor bulk/ tone/ strength lower extremities , thigh and legs : 5/5 Deep tendon reflexes : Normal Knee Jerk. Normal Ankle Jerk . Vertebral body tenderness to palpation over Lumbar Facet Loading Test positive over BL L4-L5, L5-S1 facets Straight Leg Raise: positive at 30 degrees right side/ left side Gaenslen's Test positive Sacral spine : Severe tenderness over the Sacroiliac joint: right side / left side Range of motion: Flexion of the lumbar spine <60 degrees Range of motion: Extension of the lumbar spine <20 degrees Gaenslen's Test positive right side / left side Sharita test: positive right side / left side Thigh Thrust Test positive right side / left side Sacral Thrust Test positive right side / left side Assessment and plan: Chronic LBP secondary to lumbar DDD, spondylosis with facet arthropathy without myelopathy Recommendation of BL facet block of the medial branches L4-L5, L5-S1 #1. May need a series of injections, up until RFA, for optimal pain relief. Risks, benefits of procedure discussed and pt verbalized understanding. Admits to anticoagulant use or medical history of diabetes. Protocol for discontinuation/ continuation of medications armen procedure discussed. All questions answered. I have spent less than 30 minutes on patient care today. Dr Agustin was available by phone for the evaluation of this patient. The time was used to review the medical records including relevant urine studies and Prescription history (MAPs), review of the available imaging, evaluation and examination of the patient, coordination of care with the medical staff and if applicable referring physicians, as well as creation of the medical record PQRS Narrative: Smoking Status Never smoker Home Medications: Ambulatory Orders Omeprazole [PriLOSEC] 20 mg PO DAILY 01/12/19 Levothyroxine Sodium [Synthroid] 150 mcg PO DAILY 11/10/19 Empagliflozin [Jardiance] 25 mg PO DAILY 12/11/20 metFORMIN HCL [Glucophage] 1,000 mg PO BID 12/11/20 Ergocalciferol (Vitamin D2) [Drisdol (50,000 Iu)] 1,250 mcg PO MO 07/14/21 oxyCODONE-APAP 10-325MG [Percocet 10-325 mg] 1 tab PO TID PRN 07/21/21 Fenofibrate Nanocrystallized [Fenofibrate] 145 mg PO DAILY 08/03/21 Dicyclomine [Bentyl] 20 mg PO QID 08/25/21 Insulin Regular [HumuLIN R] 110 units SQ AC-BRKFST 10/16/21 Prazosin HCl 2 mg PO HS 10/16/21 Prazosin [Minipress] 1 mg PO HS 10/16/21 Venlafaxine HCl ER [Effexor XR] 75 mg PO BID 10/16/21 Cariprazine HCl [Vraylar] 4.5 mg PO DAILY 01/21/22 Dulaglutide [Trulicity] 4.5 mg SQ WE 01/21/22 Furosemide [Lasix] 20 mg PO DAILY 01/21/22 Magnesium Oxide 400 mg PO DAILY 01/21/22 Meclizine HCl 25 mg PO BID PRN 01/21/22 Metoprolol Succinate [Metoprolol Succinate ER] 25 mg PO DAILY 01/21/22 Potassium Chloride [Klor-Con M20] 20 meq PO DAILY 01/21/22 Spironolactone 25 mg PO DAILY 01/21/22 Triamterene/Hydrochlorothiazid [Triamterene-Hctz 37.5-25 mg Tb] 1 tab PO BID 01/21/22 LORazepam [Ativan] 1 mg PO TID PRN 02/07/22 busPIRone HCL 15 mg PO HS 02/07/22 busPIRone HCL 30 mg PO DAILY 02/07/22 Metoclopramide [Reglan] 10 mg PO ACHS #30 tab 06/13/22 Acetaminophen Tab [Tylenol Tab] 1,000 mg PO Q6HR PRN #30 tablet 06/19/22 Simethicone [Gas-X] 125 mg PO AC-TID PRN #20 capsule 06/19/22 Controlled Substance Measures - Controlled Substance Measures Is patient prescribed a controlled substance at discharge?: No
== END ==
LOC: PNWHC3 08:47
PROVIDERS: ATTEND Specialist
DX: M47.27 Other spondylosis with radiculopathy, lumbosacral region (principal); M51.17 Intervertebral disc disorders with radiculopathy, lumbosacral region; G89.29 Other chronic pain; Z88.1 Allergy status to other antibiotic agents; Z88.8 Allergy status to other drugs, medicaments and biological substances; Z88.5 Allergy status to narcotic agent
CPT/HCPCS: 99211

== ENCOUNTER 2023-06-20 03:57 | Emergency (ER) | payer OTHER ==
[2023-06-20 04:25] VITALS: TEMP 97.7
[2023-06-20 04:26] LABS: Glucose,Whole Blood 111 mg/dL (70-110)
--- NOTE | 2023-06-20 04:36 | ED ---
General Adult HPI - General Chief complaint: Syncope Stated complaint: Fall Time Seen by Provider: 06/20/23 04:13 Source: patient, EMS Mode of arrival: EMS - History of Present Illness Initial comments: Dictation was produced using [employer] dictation software. please excuse any grammatical, word or spelling errors. Chief Complaint: 53-year-old female presents emergency room with syncope History of Present Illness: Palpitations 53-year-old diabetic female she somehow woke up out of bed checked her sugar. She does not remember doing this. Next extremity murmurs is waking up on the floor. Does not know how showing up on the floor. She does have some pain to the back of her head. She also has some very mild abdominal discomfort. She denies any history of cardiac disease. States that her sugar was low at home. The ROS documented in this emergency department record has been reviewed and confirmed by me. Those systems with pertinent positive or negative responses have been documented in the HPI. All other systems are other negative and/or noncontributory. - Related Data Home Medications Medication Instructions Recorded Confirmed Omeprazole [PriLOSEC] 20 mg PO QAM 01/12/19 12/17/22 Levothyroxine Sodium [Synthroid] 150 mcg PO QAM 11/10/19 12/17/22 Empagliflozin [Jardiance] 25 mg PO QAM 12/11/20 12/17/22 Ergocalciferol (Vitamin D2) 1,250 mcg PO MO 07/14/21 12/17/22 [Drisdol (50,000 Iu)] oxyCODONE-APAP 10-325MG [Percocet 1 tab PO TID PRN 07/21/21 12/17/22 10-325 mg] Fenofibrate Nanocrystallized 160 mg PO QAM 08/03/21 12/17/22 [Fenofibrate] Dicyclomine [Bentyl] 20 mg PO QID 08/25/21 12/17/22 Insulin Regular [humuLIN R] 110 units SQ AC-BRKFST 10/16/21 12/17/22 Prazosin HCl 6 mg PO HS 10/16/21 12/17/22 Venlafaxine HCl ER [Effexor XR] 150 mg PO BID 10/16/21 12/17/22 Cariprazine HCl [Vraylar] 6 mg PO QAM 01/21/22 12/17/22 Dulaglutide [Trulicity] 4.5 mg SQ WE 01/21/22 12/17/22 Furosemide [Lasix] 20 mg PO QAM 01/21/22 12/17/22 Magnesium Oxide 400 mg PO QAM 01/21/22 12/17/22 Meclizine HCl 25 mg PO BID PRN 01/21/22 12/17/22 Metoprolol Succinate [Metoprolol 25 mg PO QAM 01/21/22 12/17/22 Succinate ER] Potassium Chloride [Klor-Con M20] 20 meq PO QAM 01/21/22 12/17/22 Triamterene/Hydrochlorothiazid 1 tab PO BID 01/21/22 12/17/22 [Triamterene-Hctz 37.5-25 mg Tb] Aspirin [Adult Low Dose Aspirin EC] 81 mg PO QAM 12/16/22 12/17/22 Linaclotide [Linzess] 145 mcg PO QAM 12/16/22 12/17/22 Metoclopramide [Reglan] 10 mg PO QAM 12/16/22 12/17/22 Rosuvastatin Calcium 40 mg PO HS 12/16/22 12/17/22 lisinopriL [Lisinopril] 2.5 mg PO QAM 12/16/22 12/17/22 Allergies Allergy/AdvReac Type Severity Reaction Status Date / Time bupropion [From Wellbutrin] Allergy Rash/Hives Verified 06/20/23 04:06 cephalexin [From Keflex] Allergy Rash/Hives Verified 06/20/23 04:06 propoxyphene Allergy Rash/Hives Verified 06/20/23 04:06 [From Darvocet-N] sertraline [From Zoloft] Allergy AGITATION Verified 06/20/23 04:06 Review of Systems ROS Statement: Those systems with pertinent positive or pertinent negative responses have been documented in the HPI. ROS Other: All systems not noted in ROS Statement are negative. Past Medical History Past Medical History: Diabetes Mellitus, GERD/Reflux, Hyperlipidemia, Hypertension, Thyroid Disorder Additional Past Medical History / Comment(s): IDDM, hx ventral hernia with surgery, bilateral leg/feet edema, frequent uti's, twisted small bowel with surgery, sepsis, HYPOKALEMIA, pancreatitis History of Any Multi-Drug Resistant Organisms: None Reported Past Surgical History: Bowel Resection, Section, Cholecystectomy, Hernia Repair, Hysterectomy, Joint Replacement, Orthopedic Surgery Additional Past Surgical History / Comment(s): bilat knees replaced,. thymus gland removal,. ventral hernia repair w/ mesh. COLONOSCOPY/EGD Past Anesthesia/Blood Transfusion Reactions: No Reported Reaction Additional Past Anesthesia/Blood Transfusion Reaction / Comment(s): no problems with prior blood transfusion in 1994 Past Psychological History: Anxiety, Depression, Panic Disorder, PTSD, Schizoaffective Disorder, Schizophrenia Smoking Status: Never smoker - Past Family History Mother Family Medical History: Cancer Additional Family Medical History / Comment(s): lung Father Family Medical History: Myocardial Infarction ([place]) Sister(s) Family Medical History: Cancer Additional Family Medical History / Comment(s): breast General Exam - General Exam Comments Initial Comments: PHYSICAL EXAM: General Impression: Alert and oriented x3, not in acute distress HEENT: Hematoma to the occiput, extra-ocular movements intact, pupils equal and reactive to light bilaterally, mucous membranes moist. Cardiovascular: Heart regular rate and rhythm Chest: Able to complete full sentences, no retractions, no tachypnea Abdomen: abdomen soft, non-tender, non-distended, no organomegaly Musculoskeletal: Pulses present and equal in all extremities, no peripheral edema Motor: no focal deficits noted Neurological: CN II-XII grossly intact, no focal motor or sensory deficits noted Skin: Intact with no visualized rashes Psych: Normal affect and mood Course Vital Signs 06/20/23 06/20/23 04:02 05:30 Temperature 97.7 F Pulse Rate 111 H 104 H Respiratory 20 19 Rate Blood Pressure 121/78 123/70 O2 Sat by Pulse 97 96 Oximetry Medical Decision Making - Medical Decision Making Was pt. sent in by a medical professional or institution (, PA, BOARD FILLER, urgent care, hospital, or halfway...) When possible be specific @ -No Did you speak to anyone other than the patient for history (EMS, parent, family, police, friend...)? What history was obtained from this source @ -No Did you review nursing and triage notes (agree or disagree)? Why? @ -I reviewed and agree with nursing and triage notes Were old charts reviewed (outside hosp., previous admission, EMS record, old EKG, old radiological studies, urgent care reports/EKG's, halfway records)? Report findings @ -No old charts were reviewed Differential Diagnosis (chest pain, altered mental status, abdominal pain women, abdominal pain men, vaginal bleeding, musculoskeletal, weakness, fever, dyspnea, syncope, headache, dizziness, GI bleed, back pain, seizure, CVA, palpatations, mental health)? @ -Differential Syncope: Valvular disease, hypertrophic cardiomyopathy, pulmonary embolism, tamponade, tachycardia, bradycardia, MO, hypovolemia, hemorrhage, dissection, anemia, intracranial hemorrhage, seizure, hypoglycemia, carbon monoxide poisoning, this is not meant to be an all-inclusive list. EKG interpreted by me (3pts min.). @ -Ventricular rate 105, sinus tachycardia,. Interval 152, QRS 11, QTC 408 X-rays interpreted by me (1pt min.). @ -None done CT interpreted by me (1pt min.). @Computed tomography scan of the brain shows no intracranial hemorrhage U/S interpreted by me (1pt. min.). @ -None done What testing was considered but not performed or refused? (CT, X-rays, U/S, labs)? Why? @ -None What meds were considered but not given or refused? Why? @ -None Did you discuss the management of the patient with other professionals (professionals i.e. , PA, BOARD FILLER, lab, RT, psych nurse, social science instructor, disability hearing officer, teacher, transport corps officer, case advocate)? Give summary @ -No Was smoking cessation discussed for >3mins.? @ -No Was critical care preformed (if so, how long)? @ -No Were there social determinants of health that impacted care today? How? (Homelessness, low income, unemployed, alcoholism, drug addiction, transportation, low edu. Level, literacy, decrease access to med. care, half-way, rehab)? @ -No Was there de-escalation of care discussed even if they declined (Discuss DNR or withdrawal of care, Hospice)? DNR status @ -No What co-morbidities impacted this encounter? (DM, HTN, Smoking, COPD, CAD, Cancer, CVA, ARF, Chemo, Hep., AIDS, mental health diagnosis, sleep apnea, morbid obesity)? @ -None Was patient admitted / discharged? Hospital course, mention meds given and route, prescriptions, significant lab abnormalities, going to OR and other pertinent info. @ -51-year-old female presents emergency Department after fall. Patient's close any injury. He is concerned perhaps possible syncope. Patient is not having history of cardio myopathy. Prior chart was reviewed showing the patient had an echocardiogram performed in 2021 that showed no evidence of cardiomyopathy. Patient to the emergency department. Undiagnosed new problem with uncertain prognosis? @ -No Drug Therapy requiring intensive monitoring for toxicity (Heparin, Nitro, Insulin, Cardizem)? @ -No Were any procedures done? @ -No Diagnosis/symptom? Acute, or Chronic, or Acute on Chronic? Uncomplicated (without systemic symptoms) or Complicated (systemic symptoms)? @ -Fall, closed head injury Side effects of treatment? @ -No Exacerbation, Progression, or Severe Exacerbation? @ -No Poses a threat to life or bodily function? How? (Chest pain, USA, MO, pneumonia, PE, COPD, DKA, ARF, appy, cholecystitis, CVA, Diverticulitis, Homicidal, Suicidal, threat to staff... and all critical care pts) @ -No - Lab Data Result diagrams: 06/20/23 04:42 06/20/23 04:42 Lab Results 06/20/23 06/20/23 06/20/23 Range/Units 04:24 04:42 04:42 WBC 11.8 H (3.8-10.6) k/uL RBC 4.94 (3.80-5.40) m/uL Hgb 15.2 (11.4-16.0) gm/dL Hct 44.0 (34.0-46.0) % MCV 89.1 (80.0-100.0) fL MCH 30.9 (25.0-35.0) pg MCHC 34.7 (31.0-37.0) g/dL RDW 12.7 (11.5-15.5) % Plt Count 269 (150-450) k/uL MPV 9.1 Neutrophils % 61 % Lymphocytes % 31 % Monocytes % 4 % Eosinophils % 2 % Basophils % 1 % Neutrophils # 7.2 (1.3-7.7) k/uL Lymphocytes # 3.7 (1.0-4.8) k/uL Monocytes # 0.4 (0-1.0) k/uL Eosinophils # 0.2 (0-0.7) k/uL Basophils # 0.1 (0-0.2) k/uL PT 10.2 (10.0-12.5) sec INR 0.9 (<1.2) APTT 22.4 (22.0-30.0) sec Sodium (137-145) mmol/L Potassium (3.5-5.1) mmol/L Chloride (98-107) mmol/L Carbon Dioxide (22-30) mmol/L Anion Gap mmol/L BUN (7-17) mg/dL Creatinine (0.52-1.04) mg/dL Est GFR (CKD-EPI)AfAm (>60 ml/min/1.73 sqM) Est GFR (CKD-EPI)NonAf (>60 ml/min/1.73 sqM) Glucose (74-99) mg/dL POC Glucose (mg/dL) 111 H (70-110) mg/dL POC Glu [employer] Ski Maker ID Priscilla Rose Calcium (8.4-10.2) mg/dL Magnesium (1.6-2.3) mg/dL Total Bilirubin (0.2-1.3) mg/dL AST (14-36) U/L ALT (4-34) U/L Alkaline Phosphatase (38-126) U/L Troponin I (0.000-0.034) ng/mL Total Protein (6.3-8.2) g/dL Albumin (3.5-5.0) g/dL 06/20/23 06/20/23 Range/Units 04:42 04:42 WBC (3.8-10.6) k/uL RBC (3.80-5.40) m/uL Hgb (11.4-16.0) gm/dL Hct (34.0-46.0) % MCV (80.0-100.0) fL MCH (25.0-35.0) pg MCHC (31.0-37.0) g/dL RDW (11.5-15.5) % Plt Count (150-450) k/uL MPV Neutrophils % % Lymphocytes % % Monocytes % % Eosinophils % % Basophils % % Neutrophils # (1.3-7.7) k/uL Lymphocytes # (1.0-4.8) k/uL Monocytes # (0-1.0) k/uL Eosinophils # (0-0.7) k/uL Basophils # (0-0.2) k/uL PT (10.0-12.5) sec INR (<1.2) APTT (22.0-30.0) sec Sodium 132 L (137-145) mmol/L Potassium 3.1 L (3.5-5.1) mmol/L Chloride 97 L (98-107) mmol/L Carbon Dioxide 28 (22-30) mmol/L Anion Gap 7 mmol/L BUN 18 H (7-17) mg/dL Creatinine 0.62 (0.52-1.04) mg/dL Est GFR (CKD-EPI)AfAm >90 (>60 ml/min/1.73 sqM) Est GFR (CKD-EPI)NonAf >90 (>60 ml/min/1.73 sqM) Glucose 105 H (74-99) mg/dL POC Glucose (mg/dL) (70-110) mg/dL POC Glu [employer] Ski Maker ID Calcium 8.5 (8.4-10.2) mg/dL Magnesium 1.8 (1.6-2.3) mg/dL Total Bilirubin 0.5 (0.2-1.3) mg/dL AST 33 (14-36) U/L ALT 21 (4-34) U/L Alkaline Phosphatase 146 H (38-126) U/L Troponin I <0.012 (0.000-0.034) ng/mL Total Protein 7.0 (6.3-8.2) g/dL Albumin 4.0 (3.5-5.0) g/dL Disposition Clinical Impression: Fall Disposition: HOME SELF-CARE Condition: Fair Is patient prescribed a controlled substance at d/c from ED?: No Referrals: Ashley Heaton DO [Primary Care Provider] - 1-2 days Time of Disposition: 06:54
[2023-06-20 04:53] LABS: Basophils # (A) 0.1 k/uL (0-0.2); Basophils % (A) 1 %; Eosinophils # (A) 0.2 k/uL (0-0.7); Eosinophils % (A) 2 %; HGB 15.2 gm/dL (11.4-16.0); Lymphocytes # (A) 3.7 k/uL (1.0-4.8); Lymphocytes % (A) 31 %; MCH 30.9 pg (25.0-35.0); MCHC 34.7 g/dL (31.0-37.0); MCV 89.1 fL (80.0-100.0); Mean Platelet Volume 9.1; Monocytes # (A) 0.4 k/uL (0-1.0); Monocytes % (A) 4 %; Neutrophils # (A) 7.2 k/uL (1.3-7.7); Neutrophils % (A) 61 %; Platelet Count 269 k/uL (150-450); RBC 4.94 m/uL (3.80-5.40); RDW 12.7 % (11.5-15.5); WBC 11.8 k/uL (3.8-10.6)
[2023-06-20 05:01] LABS: ALT 21 U/L (4-34); AST 33 U/L (14-36); African American GFR (CKD) >90 (>60 ml/min/1.73 sqM); Alkaline Phosphatase 146 U/L (38-126); Anion Gap 7 mmol/L; Blood Urea Nitrogen 18 mg/dL (7-17); Calcium 8.5 mg/dL (8.4-10.2); Carbon Dioxide 28 mmol/L (22-30); Chloride 97 mmol/L (98-107); Glucose 105 mg/dL (74-99); Magnesium 1.8 mg/dL (1.6-2.3); Non-African American GFR(CKD) >90 (>60 ml/min/1.73 sqM); Sodium 132 mmol/L (137-145); Total Bilirubin 0.5 mg/dL (0.2-1.3)
[2023-06-20 05:09] LABS: INR 0.9 (<1.2); Partial Thromboplastin Time 22.4 sec (22.0-30.0); Prothrombin Time 10.2 sec (10.0-12.5)
[2023-06-20 05:48] LABS: Potassium 3.1 mmol/L (3.5-5.1)
--- NOTE | 2023-06-20 06:44 | CT ---
EXAMINATION TYPE: CT brain cspine wo con DATE OF EXAM: 06/20/2023 COMPARISON: 08/02/2021 HISTORY: syncopal episode CT DLP: 1767.4 mGycm Automated exposure control for dose reduction was used. TECHNIQUE: CT scan of the head and cervical spine are performed without contrast. Head CT: Ventricles, basal cisterns and sulci over convexities within normal limits and there is no mass, mass effect or shift of midline structures. No abnormal density is seen throughout the brain parenchyma and there is no acute intra or extra-axia l hemorrhage. Posterior fossa including the brainstem, fourth ventricle and cerebellar pontine angles are grossly n ormal. The intraorbital contents appear normal and symmetric. Visualized paranasal sinuses and mastoid air c ells are well aerated. CT cervical spine: Craniovertebral junction relationships and prevertebral soft tissues are normal. The cervical vertebral segments are normal in height and alignment and there is no fracture subluxati on. There is mild degenerative disc disease at C5-6 level. The bony cervical canal is widely patent and there is no bony encroachment of the neural foramina. The paraspinal soft tissues unremarkable. IMPRESSION: 1. Head CT: No acute bleed or mass effect. 2. CT cervical spine: No acute trauma.
[2023-06-20 07:37] VITALS: BP 128/70; PULSE 82; RESP 18
== END 2023-06-20 07:09 | disposition home or self-care (01) ==
LOC: EC 03:57
DX: S00.03XA Contusion of scalp, initial encounter (principal); R00.0 Tachycardia, unspecified; E11.9 Type 2 diabetes mellitus without complications; I10 Essential (primary) hypertension; K21.9 Gastro-esophageal reflux disease without esophagitis; E78.5 Hyperlipidemia, unspecified; F25.9 Schizoaffective disorder, unspecified; F32.A Depression, unspecified; E07.9 Disorder of thyroid, unspecified; F41.9 Anxiety disorder, unspecified; Z79.4 Long term (current) use of insulin; Z79.84 Long term (current) use of oral hypoglycemic drugs; Z79.890 Hormone replacement therapy; Z79.82 Long term (current) use of aspirin; Z79.899 Other long term (current) drug therapy; Z88.1 Allergy status to other antibiotic agents; Z88.8 Allergy status to other drugs, medicaments and biological substances; W19.XXXA Unspecified fall, initial encounter
CPT/HCPCS: 36415; 70450; 72125; 80053; 83735; 84484; 85025; 85610; 85730; 93005; 99284

== ENCOUNTER 2023-08-24 17:28 | Emergency (ER) | payer OTHER ==
[2023-08-24 17:42] VITALS: TEMP 98.4
--- NOTE | 2023-08-24 18:05 | ED ---
General Adult HPI - General Chief complaint: Fall Stated complaint: Fall, L Hip Pain Time Seen by Provider: 08/24/23 17:32 Source: patient, EMS, RN notes reviewed Mode of arrival: EMS Limitations: physical limitation - History of Present Illness Initial comments: 53-year-old female presents to the emergency department for evaluation of left- sided leg pain following a fall. Patient states that yesterday she was walking when she lost her balance and fell. Patient patient reports that she has been ambulating fine but notes that at some point this afternoon she initially had a lot of pain in the left lateral foot and down her whole leg. She usually ambulates with a walker. She did not hit her head or lose consciousness. She is on aspirin but no other blood thinners. - Related Data Home Medications Medication Instructions Recorded Confirmed Omeprazole [PriLOSEC] 20 mg PO QAM 01/12/19 12/17/22 Levothyroxine Sodium [Synthroid] 150 mcg PO QAM 11/10/19 12/17/22 Empagliflozin [Jardiance] 25 mg PO QAM 12/11/20 12/17/22 Ergocalciferol (Vitamin D2) 1,250 mcg PO MO 07/14/21 12/17/22 [Drisdol (50,000 Iu)] oxyCODONE-APAP 10-325MG [Percocet 1 tab PO TID PRN 07/21/21 12/17/22 10-325 mg] Fenofibrate Nanocrystallized 160 mg PO QAM 08/03/21 12/17/22 [Fenofibrate] Dicyclomine [Bentyl] 20 mg PO QID 08/25/21 12/17/22 Insulin Regular [humuLIN R] 110 units SQ AC-BRKFST 10/16/21 12/17/22 Prazosin HCl 6 mg PO HS 10/16/21 12/17/22 Venlafaxine HCl ER [Effexor XR] 150 mg PO BID 10/16/21 12/17/22 Cariprazine HCl [Vraylar] 6 mg PO QAM 01/21/22 12/17/22 Dulaglutide [Trulicity] 4.5 mg SQ WE 01/21/22 12/17/22 Furosemide [Lasix] 20 mg PO QAM 01/21/22 12/17/22 Magnesium Oxide 400 mg PO QAM 01/21/22 12/17/22 Meclizine HCl 25 mg PO BID PRN 01/21/22 12/17/22 Metoprolol Succinate [Metoprolol 25 mg PO QAM 01/21/22 12/17/22 Succinate ER] Potassium Chloride [Klor-Con M20] 20 meq PO QAM 01/21/22 12/17/22 Triamterene/Hydrochlorothiazid 1 tab PO BID 01/21/22 12/17/22 [Triamterene-Hctz 37.5-25 mg Tb] Aspirin [Adult Low Dose Aspirin EC] 81 mg PO QAM 12/16/22 12/17/22 Linaclotide [Linzess] 145 mcg PO QAM 12/16/22 12/17/22 Metoclopramide [Reglan] 10 mg PO QAM 12/16/22 12/17/22 Rosuvastatin Calcium 40 mg PO HS 12/16/22 12/17/22 lisinopriL [Lisinopril] 2.5 mg PO QAM 12/16/22 12/17/22 Allergies Allergy/AdvReac Type Severity Reaction Status Date / Time bupropion [From Wellbutrin] Allergy Rash/Hives Verified 08/24/23 17:37 cephalexin [From Keflex] Allergy Rash/Hives Verified 08/24/23 17:37 propoxyphene Allergy Rash/Hives Verified 08/24/23 17:37 [From Darvocet-N] sertraline [From Zoloft] Allergy AGITATION Verified 08/24/23 17:37 Review of Systems ROS Statement: Those systems with pertinent positive or pertinent negative responses have been documented in the HPI. ROS Other: All systems not noted in ROS Statement are negative. Past Medical History Past Medical History: Diabetes Mellitus, GERD/Reflux, Hyperlipidemia, Hypertension, Thyroid Disorder Additional Past Medical History / Comment(s): IDDM, hx ventral hernia with surgery, bilateral leg/feet edema, frequent uti's, twisted small bowel with surgery, sepsis, HYPOKALEMIA, pancreatitis History of Any Multi-Drug Resistant Organisms: None Reported Past Surgical History: Bowel Resection, Section, Cholecystectomy, Hernia Repair, Hysterectomy, Joint Replacement, Orthopedic Surgery Additional Past Surgical History / Comment(s): bilat knees replaced,. thymus gland removal,. ventral hernia repair w/ mesh. COLONOSCOPY/EGD Past Anesthesia/Blood Transfusion Reactions: No Reported Reaction Additional Past Anesthesia/Blood Transfusion Reaction / Comment(s): no problems with prior blood transfusion in 1994 Past Psychological History: Anxiety, Depression, Panic Disorder, PTSD, Schizoaffective Disorder, Schizophrenia Smoking Status: Never smoker Past Alcohol Use History: None Reported Past Drug Use History: None Reported - Past Family History Mother Family Medical History: Cancer Additional Family Medical History / Comment(s): lung Father Family Medical History: Myocardial Infarction ([place]) Sister(s) Family Medical History: Cancer Additional Family Medical History / Comment(s): breast General Exam Limitations: no limitations General appearance: alert, in no apparent distress Head exam: Present: atraumatic, normocephalic, normal inspection Eye exam: Present: normal appearance, PERRL, EOMI. Absent: scleral icterus, conjunctival injection, periorbital swelling ENT exam: Present: normal exam, mucous membranes moist Neck exam: Present: normal inspection. Absent: tenderness, meningismus, lymphadenopathy Respiratory exam: Present: normal lung sounds bilaterally. Absent: respiratory distress, wheezes, rales, rhonchi, stridor Cardiovascular Exam: Present: regular rate, normal rhythm, normal heart sounds. Absent: systolic murmur, diastolic murmur, rubs, gallop, clicks GI/Abdominal exam: Present: soft, normal bowel sounds. Absent: distended, tenderness, guarding, rebound, rigid Extremities exam: Present: tenderness (Left lateral foot), normal capillary refill, other (DP and PT pulses). Absent: full ROM Back exam: Present: normal inspection Neurological exam: Present: alert, oriented X3, CN II-XII intact Psychiatric exam: Present: normal affect, normal mood Skin exam: Present: warm, dry, intact, normal color. Absent: rash Course Vital Signs 08/24/23 08/24/23 08/24/23 17:30 20:13 22:08 Temperature 98.4 F Pulse Rate 63 70 96 Respiratory 18 16 18 Rate Blood Pressure 110/67 114/72 105/72 O2 Sat by Pulse 96 99 97 Oximetry Medical Decision Making - Medical Decision Making Was pt. sent in by a medical professional or institution (, PA, DRUM SEALER, urgent care, hospital, or detention...) When possible be specific @ -No Did you speak to anyone other than the patient for history (EMS, parent, family, police, friend...)? What history was obtained from this source @ -No Did you review nursing and triage notes (agree or disagree)? Why? @ -I reviewed and agree with nursing and triage notes Were old charts reviewed (outside hosp., previous admission, EMS record, old EKG, old radiological studies, urgent care reports/EKG's, detention records)? Report findings @ -No old charts were reviewed Differential Diagnosis (chest pain, altered mental status, abdominal pain women, abdominal pain men, vaginal bleeding, weakness, fever, dyspnea, syncope, headache, dizziness, GI bleed, back pain, seizure, CVA, palpatations, mental health, musculoskeletal)? @ -Differential Musculoskeletal Muscular strain, contusion, ligament sprain, fracture, arthritis, septic arthritis, bursitis, cellulitis, muscle spasm, nerve compression, DVT, arterial occlusion, herpes zoster, electrolyte abnormality, tumor.... This is not meant to be in all inclusive list EKG interpreted by me (3pts min.). @ -None X-rays interpreted by me (1pt min.). @ -X-ray of the left foot shows bone spur with no acute fracture X-ray lumbar spine shows no acute fracture X-ray of the left hip and pelvis shows no evidence of acute fracture CT interpreted by me (1pt min.). @ -None done U/S interpreted by me (1pt. min.). @ -None done What testing was considered but not performed or refused? (CT, X-rays, U/S, labs)? Why? @ -None What meds were considered but not given or refused? Why? @ -None Did you discuss the management of the patient with other professionals (professionals i.e. , PA, DRUM SEALER, lab, RT, psych nurse, social work coordinator, annealer, teacher, patrol community service officer, rehabilitation case coordinator)? Give summary @ -No Was smoking cessation discussed for >3mins.? @ -No Was critical care preformed (if so, how long)? @ -No Were there social determinants of health that impacted care today? How? (Homelessness, low income, unemployed, alcoholism, drug addiction, transportation, low edu. Level, literacy, decrease access to med. care, fdc, rehab)? @ -No Was there de-escalation of care discussed even if they declined (Discuss DNR or withdrawal of care, Hospice)? DNR status @ -No What co-morbidities impacted this encounter? (DM, HTN, Smoking, COPD, CAD, Cancer, CVA, ARF, Chemo, Hep., AIDS, mental health diagnosis, sleep apnea, morbid obesity)? @ -None Was patient admitted / discharged? Hospital course, mention meds given and route, prescriptions, significant lab abnormalities, going to OR and other pertinent info. @ -Discharged. Patient presented to the emergency department for evaluation of fall. She reports left lateral foot pain, leg pain. X-rays obtained which show no evidence of acute fracture, she does have a bone spur on her left calcaneus. Neurovascular intact. Patient was given IM Toradol which did not improve her pain. Patient was then given IM morphine. She was able to ambulate with a walker after this which she typically uses a walker. Patient will be discharged home. Patient is understanding and agreeable with this plan. Patient stable at time of discharge. Case discussed with Dr. Hardy. Undiagnosed new problem with uncertain prognosis? @ -No Drug Therapy requiring intensive monitoring for toxicity (Heparin, Nitro, Insulin, Cardizem)? @ -No Were any procedures done? @ -No Diagnosis/symptom? @ -Fall, foot pain Acute, or Chronic, or Acute on Chronic? @ -Acute Uncomplicated (without systemic symptoms) or Complicated (systemic symptoms)? @ -Uncomplicated Side effects of treatment? @ -No Exacerbation, Progression, or Severe Exacerbation? @ -No Poses a threat to life or bodily function? How? (Chest pain, [place], [place], pneumonia, PE, COPD, DKA, ARF, appy, cholecystitis, CVA, Diverticulitis, Homicidal, Suicidal, threat to staff... and all critical care pts) @ -No Disposition Clinical Impression: Fall, Foot contusion, Plantar fasciitis of left foot Disposition: HOME SELF-CARE Condition: Stable Instructions (If sedation given, give patient instructions): Fall Prevention (ED) Additional Instructions: Please follow up with your primary care provider. Return to the emergency department for new or worsening symptoms. Is patient prescribed a controlled substance at d/c from ED?: No Referrals: Aundrea Torres MD [Primary Care Provider] - 1-2 days
[2023-08-24] MEDS: KETOROLAC 15 MG/ML 1 ML VIAL IM STA (19:10)
--- NOTE | 2023-08-24 20:02 | XR ---
EXAMINATION TYPE: XR Hip LT and AP Pelvis DATE OF EXAM: 08/24/2023 6:23 PM CLINICAL INDICATION:Female, 53 years old with history of fall; [facility] COMPARISON: None. TECHNIQUE: The left hip was examined in the frontal and lateral projections and a AP pelvis. FINDINGS: Mild hip arthropathy. No acute fracture or dislocation seen. Surgical clips in the left pel vis. Mild degenerative changes of the right hip with small cortical bump at the head neck junction, c orrelate for possible femoral acetabular impingement. Mild degenerative changes of the lower lumbar s pine and SI joints. IMPRESSION: No evidence of fracture or dislocation.
--- NOTE | 2023-08-24 20:05 | XR ---
EXAMINATION TYPE: XR lumbar spine 2 or 3V DATE OF EXAM: 08/24/2023 6:24 PM CLINICAL INDICATION:Female, 53 years old with history of fall; [facility] COMPARISON: None TECHNIQUE: XR lumbar spine 2 or 3V - Frontal, lateral and coned down L5-S1 lateral views of the lumba r spine. FINDINGS: There are 5 lumbar-type vertebral bodies. Mineralization appears within normal limits. No osseous prem tructive process seen. Vertebral body heights are preserved. Mild multilevel disc space narrowing wit h small marginal osteophytes. Facet disease in the mid to lower lumbar spine. There is normal alignme nt of the lumbar vertebral bodies. Soft tissues are unremarkable. Right upper quadrant clips likely from cholecystectomy. Surgical clips in the left hemipelvis. IMPRESSION: 1. No radiographic evidence of acute compression fracture. 2. Mild multilevel disc degeneration.
--- NOTE | 2023-08-24 20:40 | XR ---
EXAMINATION TYPE: XR foot complete LT DATE OF EXAM: 08/24/2023 6:23 PM CLINICAL INDICATION:Female, 53 years old with history of fall; [facility] COMPARISON: None. TECHNIQUE: Three views left foot were obtained. FINDINGS: No evidence of fracture or significant malalignment. Mild diffuse osteoarthritic changes. Small dorsa l calcaneal spur. Soft tissues are unremarkable. No radiopaque foreign body is seen. IMPRESSION: No evidence of acute fracture or dislocation.
[2023-08-24] MEDS: ACETAMINOPHEN TAB 325 MG TAB PO STA (21:16)
[2023-08-24] MEDS: MORPHINE SULFATE 2 MG/ML SYRINGE IM ONE (21:17)
[2023-08-24 22:29] VITALS: BP 105/72; PULSE 96; RESP 18
== END 2023-08-24 22:09 | disposition home or self-care (01) ==
LOC: EC 17:28
DX: S90.32XA Contusion of left foot, initial encounter (principal); Z88.1 Allergy status to other antibiotic agents; Z88.8 Allergy status to other drugs, medicaments and biological substances; W18.30XA Fall on same level, unspecified, initial encounter; Y93.01 Activity, walking, marching and hiking
CPT/HCPCS: 72100; 73502; 73630; 99284; 96372 ×2; J2270; J1885

== ENCOUNTER → 2023-09-24 | Outpatient (CLI) | payer OTHER | END | disposition home or self-care (01) | LOC: LABPAT 08:53 | PROVIDERS: ATTEND Orthopaedic Surgery | DX: Z01.812 Encounter for preprocedural laboratory examination (principal); Z22.322 Carrier or suspected carrier of Methicillin resistant Staphylococcus aureus; M43.16 Spondylolisthesis, lumbar region; M54.16 Radiculopathy, lumbar region | CPT/HCPCS: 86850; 86900; 86901; 87070 ==

== ENCOUNTER 2023-10-04 08:39 | Day surgery (SDC) | payer OTHER ==
[2023-09-29 13:22] VITALS: BMI 45.1
--- NOTE | 2023-10-03 15:46 | P.HPOR ---
History of Present Illness H&P Date: 09/24/23 .D:Date: 09/24/23 : 08:26am .T:Title: *[facility] HISTORY AND PHYSICAL Age: 53 year Height: 5'2" Weight: 235 lbs BP:127/71 BMI: 42.98 kg/m2 Occupation: Disabled VAS: 7 IMPRESSION: It was my pleasure to have seen and examined Susan.I reviewed the patient's clinical syndrome, physical findings, and imaging studies during the appointment today. It is my impression that the patient has a diagnosis of. 1. Grade I spondylolisthesis of L4 on L5, unstable 2. Right lower extremity radiculopathy 3. Bilateral lower extremity weakness Spine Surgery Risk Review Ms. Bai is presenting for evaluation of low back and bilateral lower extremity pain, bilateral lower extremity numbness, tingling, and weakness. It was my pleasure to have seen and examined Ms. Bai. In our visit today we have had a chance to go over subjective complaints, physical examination findings and treatments including the natural course history without intervention and various interventional options. The patients imaging demonstrates: MRI scan[facility] from05[facility]15/22 of Lumbar Spine: - Re-reviewed with the patient today. . this demonstrates spondylosis L4-L5 with a grade 1 spondylolisthesis. There is foraminal stenosis on the right-hand side there is moderate to severe causing displacement of the L4 root. There is facet arthrosis with bogginess noted. no acute fracture or lesion noted. Preserved disc height and vertebral body heights at the remaining levels. XRay taken on 03/23/22 at [facility] of Lumbar Spine and Pelvis: - Re-reviewed with the patient today. Spondylitic changes L4-S1. grade 1 mobile spondylolisthesis L4-L5 with flexion- extension. There is disc degeneration and height loss noted. There is vertebral body maintenance of height. Disc height is maintained at L3 4 and L5- S1 does decrease L4-L5. No acute fractures otherwise noted no lesions. AP Pelvis: level pelvis no fractures On physical exam, Ms. Bai demonstrates: RLE radiculopathy, tensioninig sigs, pain with ROM of the Lumbar spine, difficulty with Toe raise and heel raise. Inability to stand on one leg due to pain and weakness. Clicking sound in her back when she flexes forwar. I have explained to the patient that as their condition progresses it will cause further neurological deficits and eventual paralysis. Based on the patients imaging, physical exam, and the rapid progression and disabling nature of their symptoms, at this time I recommend surgery in the form of a: L4-5 MIS posterolateral interbody fusion, right. I discussed the risk and benefits of this procedure at length with Ms. Bai. The patient agreed to considered pursuing the procedure abovementioned. Prior to surgery, she should follow up with her PCP (Cardio, ID, IM etc) for clearance. Questions were invited and answered, and the patient wishes to proceed as outlined below. Currently, I am recommendin. L4-5 MIS posterolateral interbody fusion, right 2.Review of surgical risks and benefits as well as an educational packet on the proposed surgical procedure. Risks: All surgical procedures come with inherent risks, including those related to positioning, anesthesia, intraoperative findings, and postoperative complications. It is important to understand that surgery does not come with any guarantee of a successful outcome as complications and adverse events are always possible. The patient was given a handout in office today discussing the surgical procedure and risks associated with the intervention, both of which were discussed with the patient. These risks include but are not limited to the following: * Experiencing same, different or even worse symptoms in back, neck, arms, or legs compared to before surgery. Requiring further surgery or other forms of treatment presently or at some time in the future at same or other levels of the intended spine surgery. On an extreme but fortunately relatively rare basis severe complication such as blindness, stroke, heart attack, temporary and/or permanent nerve injury, paralysis, coma, or may occur, sometimes without known explanation. Surgical complications may include but are not limited to risk of infection, fluid accumulation in the surgical dissection site, including a seroma or hematoma, that requires additional surgery, wound drainage, bleeding, new numbness or weakness, vision changes/loss, spinal fluid leakage, non-healing and/or infected incision, headaches, difficulty or inability to swallow, hoarseness, hemopneumothorax, pneumothorax, impotence, retrograde ejaculation, vaginal dryness; injury to nerves, spinal cord, blood vessels, lymphatics or other vital organs (i.e., bowel injury, injury to the great vessels); heterotopic bone formation; complications related to the hardware such as screws, rods, cages including misplaced hardware, device failure, instrumentation at the wrong spine level, hardware fracture/breakage, or hardware loosening; vertebral failure of the spinal column above or below the newly placed hardware; retained surgical instrumentations or devices and the need for further surgery. * Medical risks of the planned spine surgery include but are not limited to generalized Infections to the whole body or local areas outside of the surgical site (sepsis), heart attack, bleeding, anaphylaxis, meningitis, seizure, epilepsy, hearing loss, burn [place], laceration of the head or other areas of the body, bruising, hypersensitivity of the skin, bladder over distension; allergic reaction; shoulder injury related to positioning; fat, blood and air clots to other areas of the body like heart, lungs, brain; failure of internal organs such as lungs, kidneys, liver and excessive bleeding. If blood transfusions are necessary, note that transfusions may cause intolerance reactions such as anaphylaxis or other complex reactions. Despite best efforts, the results of spine surgery might not heal in terms of bone, soft tissues such as skin, fascia, ligaments, and joints. Additionally, in order to achieve best possible results, spine surgery may be carried out beyond the initially planned levels and involve decompression, fusion including insertion of hardware at levels other than the original intended area of surgical interest change some portions of the procedure in order to ensure the best possible outcomes. With spine surgery and spinal fusion, there are different off label uses of instrumentation (devices, implants and hardware) as well as biological substances (bone morphogenic proteins, demineralized bone matrix) as well as using extra bone from allograft sources (i.e. cadaver bone) or autograft (iliac crest bone, ribs, or the spine itself). The patient has been given information about these practices and their inherent risks and benefits. [facility] is an educational center that serves as a training facility for neurosurgical and orthopedic DISABILITY [employer] and Nursing students. Physician assistants are medically trained surgical providers who function in the outpatient, inpatient, and operating room setting under the direct supervision of the attending surgeon. [facility] has multiple operating rooms with single and overlapping rooms running daily. They currently function under the required guidelines as produced by the [facility] with regards to the overlapping rooms and will continue to comply with changes to this policy as they occur. The requirements include and are complied with as follows: (1) the critical portions of the overlapping rooms will not occur at the same time, (2) the attending physician will be physically present during the critical portions of the procedure and immediately available during the entire case, and (3) a back-up attending is designated should the primary attending not be immediately available. The patient has had a chance to review all the listed information, has been given print outs detailing this information, and has had all his/her questions answered to their satisfaction. It was my pleasure to have seen and examined Ms. Bai. In our visit today we have had a chance to go over my understanding of our patient's current condition, the natural course history without intervention and various interventional options. Questions were invited and answered, and the patient wishes to proceed as outlined above. I have seen and examined the patient for 25 minutes and we have spent more than 50% of the time in repeat and detailed counseling about the patient's condition, its natural course history with out and as much as can be predicted with surgery and re-review of various surgical treatment options. In conclusion, Ms. Bai requested we proceed with the above suggested surgery and are willing to accept risks and limitations of the suggested surgery as nature of the disease process and our best attempts at treatment for the condition. Thank you again for allowing us to be part of your patient's care. Please don't hesitate to contact me if you have any further questions. FOLLOW UP: Post Procedure PATIENT EDUCATION: Medications Reviewed: YES In our visit today Ms. Bai and I have had a chance to go over my understanding of the patient's current condition, the natural course history without intervention and various interventional options. Questions were invited and answered, and the patient wishes to proceed as outlined above. I will be sure to keep you updated after Ms. Bai returns here for further follow-up. Thank you again for your referral. Please do not hesitate to contact me if you have any further questions. Signed and authenticated by: Demario León [facility] [address] [place] [address] [address] This message is confidential, intended only for the named recipient(s) and may contain information that is privileged or exempt from disclosure under applicable law. If you are not the intended recipient(s), you are notified that the dissemination, distribution or copying of this information is strictly prohibited. If you received this message in error, please notify the sender then delete this message. Past Medical History Past Medical History: Asthma, Diabetes Mellitus, GERD/Reflux, Hyperlipidemia, Hypertension, Thyroid Disorder Additional Past Medical History / Comment(s): IDDM, bilateral leg/feet edema, frequent uti's, twisted small bowel with surgery, sepsis, HYPOKALEMIA, pancreatitis, tachycardia/frequent PVC's, IBS History of Any Multi-Drug Resistant Organisms: None Reported Past Surgical History: Section, Cholecystectomy, Hernia Repair, Hysterectomy, Joint Replacement Additional Past Surgical History / Comment(s): bilat knees replaced. thymus gland removal. ventral hernia repair w/ mesh. twisted bowel surgery Past Anesthesia/Blood Transfusion Reactions: No Reported Reaction Additional Past Anesthesia/Blood Transfusion Reaction / Comment(s): no problems with prior blood transfusion in 1994 Past Psychological History: Anxiety, Depression, Panic Disorder, PTSD, Schizoaffective Disorder, Schizophrenia Additional Psychological History / Comment(s): . Smoking Status: Never smoker Past Alcohol Use History: None Reported Past Drug Use History: None Reported - Past Family History Mother Family Medical History: Cancer Additional Family Medical History / Comment(s): lung Father Family Medical History: Myocardial Infarction (SD) Sister(s) Family Medical History: Cancer Additional Family Medical History / Comment(s): breast Medications and Allergies Home Medications Medication Instructions Recorded Confirmed Type Omeprazole [PriLOSEC] 20 mg PO QAM 01/12/19 09/29/23 History Levothyroxine Sodium [Synthroid] 150 mcg PO QAM 11/10/19 09/29/23 History Empagliflozin [Jardiance] 25 mg PO QAM 12/11/20 09/29/23 History Ergocalciferol (Vitamin D2) 1,250 mcg PO Q7D 07/14/21 09/29/23 History [Drisdol (50,000 Iu)] Fenofibrate Nanocrystallized 160 mg PO QAM 08/03/21 09/29/23 History [Fenofibrate] Dicyclomine [Bentyl] 20 mg PO QID PRN 08/25/21 09/29/23 History Insulin Regular [humuLIN R] 80 units SQ AC-BRKFST 10/16/21 09/29/23 History Prazosin HCl 2 mg PO 10/16/21 09/29/23 History Venlafaxine HCl ER [Effexor XR] 150 mg PO DAILY 10/16/21 09/29/23 History Furosemide [Lasix] 80 mg PO QA 01/21/22 09/29/23 History Magnesium Oxide 400 mg PO QA 01/21/22 09/29/23 History Meclizine HCl 25 mg PO BID PRN 01/21/22 09/29/23 History Metoprolol Succinate [Metoprolol 25 mg PO QA 01/21/22 09/29/23 History Succinate ER] Aspirin [Adult Low Dose Aspirin EC] 81 mg PO QA 12/16/22 09/29/23 History Rosuvastatin Calcium 40 mg PO 12/16/22 09/29/23 History lisinopriL [Lisinopril] 2.5 mg PO [facility] 12/16/22 09/29/23 History Albuterol Nebulized [Ventolin 1.25 mg INHALATION Q6H PRN 09/29/23 09/29/23 Hi story Nebulized (Accuneb)] Albuterol Sulfate [Ventolin HFA] 1 - 2 puff INHALATION Q6H PRN 09/29/23 09/29/23 History Budesonide-Formot 160-4.5 Mcg 2 puff INHALATION BID 09/29/23 09/29/23 History [Symbicort 160-4.5 Mcg Inhaler] Cariprazine HCl [Vraylar] 6 mg PO DAILY 09/29/23 09/29/23 History Insulin Regular [humuLIN R] 40 units SQ 09/29/23 09/29/23 History LORazepam [Ativan] 1 mg PO DAILY PRN 09/29/23 09/29/23 History Ondansetron [Zofran] 4 mg PO Q8HR PRN 09/29/23 09/29/23 History Potassium Chloride ER [K-Dur 20] 20 meq PO DAILY 09/29/23 09/29/23 History Prazosin [Minipress] 5 mg PO QA 09/29/23 09/29/23 History Tirzepatide [Mounjaro] 7.5 mg SQ 09/29/23 09/29/23 History Venlafaxine HCl [Effexor] 37.5 mg PO DAILY 09/29/23 09/29/23 History metFORMIN HCL [Glucophage] 1,000 mg PO QAM 09/29/23 09/29/23 History traMADol HCL 50 mg PO BID PRN 09/29/23 09/29/23 History traZODone HCL 100 mg PO BID 09/29/23 09/29/23 History Allergies Allergy/AdvReac Type Severity Reaction Status Date / Time bupropion [From Wellbutrin] Allergy Rash/Hives Verified 09/29/23 12:03 cephalexin [From Keflex] Allergy Rash/Hives Verified 09/29/23 12:03 propoxyphene Allergy Rash/Hives Verified 09/29/23 12:03 [From Darvocet-N] sertraline [From Zoloft] Allergy AGITATION Verified 09/29/23 12:03 Physical Examination Osteopathic Statement: *. No significant issues noted on an osteopathic structural exam other than those noted in the History and Physical/Consult.
[~2023-10-04 08:39] MED LIST changes: -ACETAMINOPHEN TAB 500 MG TAB PO STA; -GABAPENTIN 300 MG CAP PO STA; -HEPARIN SODIUM,PORCINE/PF 5,000 UNIT/0.5 ML SYRINGE SQ PRN; +ONDANSETRON 4 MG/2 ML VIAL IVP PRN; -Pre Op ABX Message 1 EACH MISC MISCELLANE ONE; -SCOPOLAMINE 1 MG/72 HR PATCH TRANSDERM STA; +TRANEXAMIC 1,000 MG/100ML-NACL 1,000 MG in SALINE 1 100ML.BAG IVPB PRN; -diphenhydrAMINE 50 MG/ML 1 ML VIAL IVP STA
[2023-10-04 09:54] LABS: Glucose,Whole Blood 179 mg/dL (70-110)
[2023-10-04] MEDS: MIDAZOLAM 2 MG/2 ML VIAL IVP ONE (10:02)
[2023-10-04] MEDS: LACTATED RINGERS 1,000 ML IV SCH (10:08)
[2023-10-04] MEDS: DEXAMETHASONE SOD PHOSPHATE 4 MG/ML 1 ML VIAL IV ONE (10:09)
[2023-10-04] MEDS: ACETAMINOPHEN TAB 500 MG TAB PO PRN (10:09)
[2023-10-04] MEDS: ONDANSETRON 4 MG/2 ML VIAL IVP ONE (10:09)
[2023-10-04] MEDS: GABAPENTIN 300 MG CAP PO PRN (10:09)
[2023-10-04] MEDS ORDERED: ROCURONIUM 10 MG/ML (5 ML VIAL) IV ONE (11:31)
[2023-10-04] MEDS ORDERED: METOPROLOL TARTRATE 5 MG/5 ML VIAL IVP ONE (11:31)
[2023-10-04] MEDS ORDERED: HYDROmorphone (PF) 1 MG/ML ONE (11:31)
[2023-10-04] MEDS ORDERED: PROPOFOL 10 MG/ML 20 ML VIAL IV ONE (11:31)
[2023-10-04] MEDS ORDERED: TRANEXAMIC 1,000 MG/100ML-NACL PREMIX BAG ONE (11:31)
[2023-10-04] MEDS ORDERED: SUCCINYLCHOLINE CHLORIDE 200 MG/10 ML VIAL IV ONE (11:31)
[2023-10-04] MEDS ORDERED: GLYCOPYRROLATE 0.2 MG/ML 2 ML VIAL ONE (11:31)
[2023-10-04] MEDS ORDERED: fentaNYL (PF) 50 MCG/ML 2 ML AMP ONE (11:31)
[2023-10-04] MEDS ORDERED: NEOSTIGMINE 1 MG/ML 10 ML VIAL ONE (11:31)
[2023-10-04] MEDS ORDERED: LIDOCAINE 1% INJ 10MG/ML (20 ML MDV) ONE (11:31)
[2023-10-04] MEDS: BUPIVACAINE (PF) 0.5% 30 ML VIAL SQ ONE (14:02)
[2023-10-04] MEDS: THROMBIN (BOVINE) 5,000 UNIT VIAL TOPICAL ONE (14:03)
[2023-10-04] MEDS: LIDOCAINE 2%-EPI 1:100,000 20 ML VIAL SQ ONE (14:03)
--- NOTE | 2023-10-04 14:13 | P.OP ---
Date of Procedure: 10/04/23 Preoperative Diagnosis: 1. GRADE I SPONDYLOLISTHESIS L4-5 2. FORAMINAL STENOSIS 3. LOW BACK PAIN 4. LE RADICULOPATHY WITH WEAKNESS Postoperative Diagnosis: 1. GRADE I SPONDYLOLISTHESIS L4-5 2. FORAMINAL STENOSIS 3. LOW BACK PAIN 4. LE RADICULOPATHY WITH WEAKNESS Procedure(s) Performed: 1. L4-5 POSTEROLATERAL AND INTERBODY FUSION 2. L4-5 LAMINOFORAMINOTOMY WITH NEURAL DECOMPRESSION AND CAGE PLACEMENT 3. L4-5 SEGMENTAL INSTRUMENTATION 4. L4-5 INSERTION OF INTERBODY DEVICE 5. USE OF [employer] NAVIGATION FOR SCREW PLACEMENT USE OF IONM ALL SCREWS TESTING > 20 mA USE OF IO MICROSCOPE Implants: -HARESH EVEREST RODS AND SCREWS -GLOBUS SABLE CAGE MED 9-16, 8 DEG -AUTOGRAFT, MAGNATOS, ARTHROCELL, ALLOGRAFT, Anesthesia: GETA Surgeon: Demario Solis Sociology Adjunct Instructor #1: Keon Sosa (HECTOR Chambers Was present and assisted with all aspects of the case from positioning to dressing placement) Estimated Blood Loss (ml): 200 IV fluids (ml): 1,300 Urine output (ml): 400 Pathology: none sent Condition: stable Disposition: PACU Indications for Procedure: Ms. Bai is presenting for evaluation of low back and bilateral lower extremity pain, bilateral lower extremity numbness, tingling, and weakness. It was my pleasure to have seen and examined Ms. Bai. In our visit today we have had a chance to go over subjective complaints, physical examination findings and treatments including the natural course history without intervention and various interventional options. The patients imaging demonstrates: MRI scancompleted [facility] from05[facility]15/22 of Lumbar Spine: - Re-reviewed with the patient today. . this demonstrates spondylosis L4-L5 with a grade 1 spondylolisthesis. There is foraminal stenosis on the right-hand side there is moderate to severe causing displacement of the L4 root. There is facet arthrosis with bogginess noted. no acute fracture or lesion noted. Preserved disc height and vertebral body heights at the remaining levels. XRay taken on 03/23/22 at [facility] Lumbar Spine and Pelvis: - Re-reviewed with the patient today. Spondylitic changes L4-S1. grade 1 mobile spondylolisthesis L4-L5 with flexion- extension. There is disc degeneration and height loss noted. There is vertebral body maintenance of height. Disc height is maintained at L3 4 and L5- S1 does decrease L4-L5. No acute fractures otherwise noted no lesions. AP Pelvis: level pelvis no fractures On physical exam, Ms. Bai demonstrates: RLE radiculopathy, tensioninig sigs, pain with ROM of the Lumbar spine, difficulty with Toe raise and heel raise. Inability to stand on one leg due to pain and weakness. Clicking sound in her back when she flexes forwar. I have explained to the patient that as their condition progresses it will cause further neurological deficits and eventual paralysis. Based on the patients imaging, physical exam, and the rapid progression and disabling nature of their symptoms, at this time I recommend surgery in the form of a: L4-5 MIS posterolateral interbody fusion, right. I discussed the risk and benefits of this procedure at length with Ms. Bai. The patient agreed to considered pursuing the procedure abovementioned. Prior to surgery, she should follow up with her PCP (Cardio, ID, IM etc) for clearance. Questions were invited and answered, and the patient wishes to proceed as outlined below. Currently, I am recommendin. L4-5 MIS posterolateral interbody fusion, right Description of Procedure: L4-L5 MIS TLIF FINN The patient was seen and examined in the preoperative area. All preoperative protocols were followed. Informed consent was obtained, risks and benefits of the procedure were discussed at length. Risks including bleeding infection damage to the surrounding tissue and risk of reoperation were discussed with the patient. Risk of anesthesia up to and including was discussed with the patient. These are outlined in the risk review. They were willing to accept these risks and all the risks of surgery. The patient was given a weight-based dose of antibiotics in the form of 2 g Ancef. The patient was seen and evaluated by the anesthesia team who deemed them fit for surgery. The site was marked, the patient was willing to proceed with the procedure. The patient was transferred to the operative suite by the Department of anesthesia. They were then drifted off to sleep by the department anesthesia and GETA was performed. The patient tolerated this well. Ashraf catheter was placed by nursing staff, a-traumatically. Once confirmation of lines and ventilation the patient was transferred to a prone Jaime table very carefully. All bony prominences including wrists, elbows, axilla, chest, hips, and thighs, and feet were padded very well. Special attention was paid to the genitalia, and these were padded accordingly. SCDs were placed on bilateral lower extremities and were connected. Arms were well padded and placed on arm boards up and out in the 90/90 position. Once in position, again we confirmed good ventilation capabilities and that lines were running appropriately. The patients Lumbar spine was then exposed. 1010s were placed outlining the inci cindy site. Standard alcohol was used to clean the incision site and allowed to dry. C-arm was used to needle localize the pedicles at L4-5 and bio-jerry the patient and confirm level for incision which was marked with a skin marker. Operative briefing was performed with all teams and everyone in agreement to proceed. The patient was then prepped and draped in a normal sterile fashion. Timeout was then performed, and all parties agreed with the procedure to be performed. Skin nicks made and pins placed in the PSIS on the right for the [employer] tracker. 3D Zheim spin was then registered and confirmed to be accurate. Navigated melissa, jamshidi and drill-guide were then used to target pedicles bilaterally at L4 and L5. Once accessed, wires were placed in their void. This was repeated at L5 bilaterally. Skin incision was then made along these wires and a perfect scalpel was used over the wire to create a path and measure screw length. Screws were then placed over wires on the contralateral side. Once the screw was at the back of the body wire was removed. The screws were confirmed to be in good position on AP and lateral. We then tested screws and they all tested above 20 mA. Attention was then turned to interbody fusion at L4-5. Tubular retractor system was placed at the interspace of L4-5 using a biplanar c arm. Once in position and dilated up to 26mm tube it was locked to the bed and confirmed in good position. Microscope was then brought in for visualization. Limited myomectomy was performed and laminectomy, complete facetectomy and foraminotomy performed at L4-5 using high speed melissa and Kerrison rongeur. The ligamentum was removed and the dural sac decompressed. Exiting and traversing roots visualized and decompressed. Neural elements were then protected, and disc space accessed with an osteotome. Sequential shaving then done under lateral imaging and complete discectomy performed using rickey, pituitary and curettes. Once good bleeding endplates accomplished and good height yazidism with trials, a combination of autograft, allograft and synthetic placed anterior in the disc space. The cage was then selected and impacted into place under lateral imaging. The cage was then expanded restoring height, lordosis and alignment. The cage was backfilled with bone graft through a funnel. The bake room worker was removed and the area inspected. Good cage placement, stable cage and no injuries. Area was irrigated copiously, and meticulous hemostasis achieved. The tubular retractor was then removed under direct visualization. Screws were then selected and placed over the previously placed wires on the ipsilateral side. This was done in the fashion described above. Screws were then tested, and all tested above 20 mA. Shells were then placed on the tabs. Rell length was then measured, and rods selected. They were then placed through the MIS tabs, subfascial and locked into L5 bilateral and sequentially reduced into L4 for listhesis reduction. These were then locked into place with set screws and finally tightened. Rell holders removed and images taken showing good placement of rods, good lordosis and yazidism of height. Tabs were broken off. Wounds were then copiously irrigated with NSS. Melissa used for TP decortication and mixture of MagnatOs, allograft and autograft packed posterolateral. Fascia was then closed with 0 Vircyl. Deep subq closed with 0 Vicryl. Superficial subq closed with 2-0 Vicryl and skin with alpesh. Wound edges approximated very well. Wound was then cleaned with alcohol and dried. Wounds dressed in Optifoam dressings. The patient was then transferred off the table back to their hospital bed a- traumatically. They were extubated by the department of anesthesia. They were then transferred to PACU in stable condition having tolerated the procedure with no complications.
[2023-10-04] MEDS ORDERED: MAGNESIUM HYDROXIDE 2,400 MG/30 ML CUP PO PRN (14:35)
[2023-10-04] MEDS ORDERED: HYDROmorphone 0.5 MG/0.5 ML SYRINGE IVP PRN (14:35)
[2023-10-04] MEDS ORDERED: SENNOSIDES-DOCUSATE SODIUM 1 EACH TAB PO PRN (14:35)
[2023-10-04 14:43] LABS: Glucose,Whole Blood 300 mg/dL (70-110)
[2023-10-04 15:12] LABS: Glucose,Whole Blood 285 mg/dL (70-110)
[2023-10-04] MEDS: INSULIN ASPART (NovoLOG) 100 UNIT/ML VIAL SQ ONE (15:14)
[2023-10-04] MEDS: HYDROmorphone 0.5 MG/0.5 ML SYRINGE IVP PRN (15:29)
--- NOTE | 2023-10-04 15:44 | FL ---
EXAMINATION TYPE: FL guidance operating room, XR lumbar spine 2 or 3V Intraoperative/procedural fluor oscopic services were provided. Total fluoroscopy time is 30 6. seconds with a total of 8 submitted i mages to PACS. Please see the operative/procedural note for further details. DAP: [id number] [id number]
[2023-10-04] MEDS: ACETAMINOPHEN TAB 325 MG TAB PO SCH (17:13)
[2023-10-04] MEDS: GABAPENTIN 300 MG CAP PO SCH (17:14)
[2023-10-04] MEDS: HYDROcodone/APAP 10-325MG 1 EACH TAB PO PRN (17:14)
[2023-10-04] MEDS ORDERED: MECLIZINE 25 MG TAB PO PRN (20:04)
[2023-10-04 20:41] LABS: Glucose,Whole Blood 284 mg/dL (70-110)
[2023-10-04] MEDS: HYDROmorphone 1 MG/ML 1 ML SYRINGE IVP PRN (20:42)
[2023-10-04] MEDS: CYCLOBENZAPRINE 5 MG TAB PO PRN (20:44)
[2023-10-04] MEDS: traZODone HCL 100 MG TAB PO SCH (20:44)
[2023-10-04] MEDS: ATORVASTATIN 80 MG TAB PO SCH (20:44)
[2023-10-04] MEDS: INSULIN ASPART (NovoLOG) 100 UNIT/ML VIAL SQ SCH (20:45)
[2023-10-04] MEDS ORDERED: INSULIN ASPART (NovoLOG) 100 UNIT/ML VIAL SQ SCH (21:00)
[2023-10-04] MEDS: SYMBICORT 160-4.5 MCG INHALER INHALATION SCH (22:00)
[2023-10-04] MEDS: HYDROcodone/APAP 5-325MG 1 EACH TAB PO PRN (23:49)
--- NOTE | 2023-10-05 00:45 | P.CONS ---
History of Present Illness - Reason for Consult Consult date: 10/04/23 - History of Present Illness Patient is a 53-year-old female with a PMH of asthma, type II DM, hypertension, hyperlipidemia, hypothyroidism who was admitted for scheduled lumbar laminoforaminotomy, decompression, and interbody fusion which the patient underwent earlier today. She was seen postoperatively on the surgical unit. She reports ongoing 7 out of 10 lower back pain. Denies experiencing chest discomfort, shortness of breath, fever, chills, cough, nausea, vomiting, abdominal pain. She has not gotten out of bed as of yet. Has passed urine but has not had flatus. Reports compliance with medications at home. Review of systems: Pertinent positives and negatives as discussed in HPI, a complete review of systems was performed and all other systems are negative. Physical examination: Vital signs reviewed General: non toxic, no distress, appears at stated age, morbidly obese Derm: no unusual rashes/lesions, warm Head: atraumatic, normocephalic, symmetric Eyes: EOMI, no lid lag, anicteric sclera, pupils equal round reactive to light ENT: Nose and ears atraumatic Neck: No cervical lymphadenopathy, trachea midline, supple Mouth: no lip lesion, mucus membranes moist Cardiovascular: S1S2 reg, no murmur, positive dorsalis pedis pulse bilateral, no edema Lungs: CTA bilateral, no rhonchi, no rales, no accessory muscle use Abdominal: soft, nontender to palpation, no guarding Ext: muscle strength intact and equal in all extremities grossly, no gross muscle atrophy, no contractures, Neuro: CN II-XI grossly intact, no gross focal neuro deficits Psych: Alert, oriented, appropriate affect Assessment: Chronic conditions: Asthma, type II DM, hypertension, hyperlipidemia, hypothyroidism Postop lumbar laminal foraminotomy with decompression and interbody fusion Plan: Resume home medications Insulin sliding scale and blood glucose monitoring Defer resumption of aspirin to primary surgery service Past Medical History Past Medical History: Asthma, Diabetes Mellitus, GERD/Reflux, Hyperlipidemia, Hypertension, Thyroid Disorder Additional Past Medical History / Comment(s): IDDM, bilateral leg/feet edema, frequent uti's, twisted small bowel with surgery, sepsis, HYPOKALEMIA, pancreatitis, tachycardia/frequent PVC's, IBS History of Any Multi-Drug Resistant Organisms: None Reported Past Surgical History: Section, Cholecystectomy, Hernia Repair, Hysterectomy, Joint Replacement Additional Past Surgical History / Comment(s): bilat knees replaced. thymus gland removal. ventral hernia repair w/ mesh. twisted bowel surgery Past Anesthesia/Blood Transfusion Reactions: No Reported Reaction Additional Past Anesthesia/Blood Transfusion Reaction / Comm: no problems with prior blood transfusion in 1994 Past Psychological History: Anxiety, Depression, Panic Disorder, PTSD, Schizoaffective Disorder, Schizophrenia Additional Psychological History / Comment(s): . Smoking Status: Never smoker Past Alcohol Use History: None Reported Past Drug Use History: None Reported - Past Family History Mother Family Medical History: Cancer Additional Family Medical History / Comment(s): lung Father Family Medical History: Myocardial Infarction (MS) Sister(s) Family Medical History: Cancer Additional Family Medical History / Comment(s): breast Medications and Allergies Home Medications Medication Instructions Recorded Confirmed Type Omeprazole [PriLOSEC] 20 mg PO QAM 01/12/19 10/04/23 History Levothyroxine Sodium [Synthroid] 150 mcg PO QAM 11/10/19 10/04/23 History Empagliflozin [Jardiance] 25 mg PO QAM 12/11/20 10/04/23 History Ergocalciferol (Vitamin D2) 1,250 mcg PO Q7D 07/14/21 10/04/23 History [Drisdol (50,000 Iu)] Fenofibrate Nanocrystallized 160 mg PO QAM 08/03/21 10/04/23 History [Fenofibrate] Dicyclomine [Bentyl] 20 mg PO QID PRN 08/25/21 10/04/23 History Insulin Regular [humuLIN R] 80 units SQ AC-BRKFST 10/16/21 10/04/23 History Prazosin HCl 2 mg PO HS 10/16/21 10/04/23 History Venlafaxine HCl ER [Effexor XR] 150 mg PO DAILY 10/16/21 10/04/23 History Furosemide [Lasix] 80 mg PO QAM 01/21/22 10/04/23 History Magnesium Oxide 400 mg PO QAM 01/21/22 10/04/23 History Meclizine HCl 25 mg PO BID PRN 01/21/22 10/04/23 History Metoprolol Succinate [Metoprolol 25 mg PO QAM 01/21/22 10/04/23 History Succinate ER] Aspirin [Adult Low Dose Aspirin EC] 81 mg PO QA 12/16/22 10/04/23 History Rosuvastatin Calcium 40 mg PO 12/16/22 10/04/23 History lisinopriL [Lisinopril] 2.5 mg PO QA 12/16/22 10/04/23 History Albuterol Nebulized [Ventolin 1.25 mg INHALATION Q6H PRN 09/29/23 10/04/23 History Nebulized (Accuneb)] Albuterol Sulfate [Ventolin HFA] 1 - 2 puff INHALATION Q6H PRN 09/29/23 10/04/23 History Budesonide-Formot 160-4.5 Mcg 2 puff INHALATION BID 09/29/23 10/04/23 History [Symbicort 160-4.5 Mcg Inhaler] Cariprazine HCl [Vraylar] 6 mg PO DAILY 09/29/23 10/04/23 History Insulin Regular [humuLIN R] 40 units SQ 09/29/23 10/04/23 History LORazepam [Ativan] 1 mg PO DAILY PRN 09/29/23 10/04/23 History Ondansetron [Zofran] 4 mg PO Q8HR PRN 09/29/23 10/04/23 History Potassium Chloride ER [K-Dur 20] 20 meq PO DAILY 09/29/23 10/04/23 History Prazosin [Minipress] 5 mg PO QA 09/29/23 10/04/23 History Tirzepatide [Mounjaro] 7.5 mg SQ 09/29/23 10/04/23 History Venlafaxine HCl [Effexor] 37.5 mg PO DAILY 09/29/23 10/04/23 History metFORMIN HCL [Glucophage] 1,000 mg PO QA 09/29/23 10/04/23 History traMADol HCL 50 mg PO BID PRN 09/29/23 10/04/23 History traZODone HCL 100 mg PO BID 09/29/23 10/04/23 History Allergies Allergy/AdvReac Type Severity Reaction Status Date / Time bupropion [From Wellbutrin] Allergy Rash/Hives Verified 10/04/23 09:31 cephalexin [From Keflex] Allergy Rash/Hives Verified 10/04/23 09:31 propoxyphene Allergy Rash/Hives Verified 10/04/23 09:31 [From Darvocet-N] sertraline [From Zoloft] Allergy AGITATION Verified 10/04/23 09:31 Physical Exam Vitals: Vital Signs Temp Pulse Pulse Pulse Resp BP Pulse Ox 10/04/23 19:23 97.6 F 107 H 18 112/64 96 10/04/23 18:25 114 H 105/66 96 10/04/23 18:24 122 H 118/76 98 10/04/23 16:00 100 15 126/56 96 10/04/23 15:45 97 16 135/55 96 10/04/23 15:30 100 17 150/63 93 L 10/04/23 15:15 98 15 150/63 93 L 10/04/23 15:00 100 16 171/72 97 10/04/23 14:48 90 15 153/70 97 10/04/23 14:37 92 15 138/62 96 10/04/23 14:28 97.0 F L 80 14 137/61 97 10/04/23 10:00 97.2 F L 89 16 133/87 99 Intake and Output 10/04/23 10/04/23 10/05/23 14:59 22:59 06:59 Intake Total 1550 Output Total 600 200 Balance 950 -200 Intake: IV 1550 Output: Urine 400 200 Estimated Blood Loss 200 Other: Voiding Method Indwelling Catheter Weight 118.7 kg 118.7 kg Results Labs: Abnormal Lab Results - Last 24 Hours (Table) 10/04/23 10/04/23 10/04/23 Range/Units 09:51 14:40 15:06 POC Glucose (mg/dL) 179 H 300 H 285 H (70-110) mg/dL 10/04/23 Range/Units 20:38 POC Glucose (mg/dL) 284 H (70-110) mg/dL
--- NOTE | 2023-10-05 01:31 | CT ---
EXAM: CT Lumbar Spine Without Intravenous Contrast CLINICAL HISTORY: ITS.REASON CT Reason: s/p L4-L5 MIS PLIF TECHNIQUE: Axial computed tomography images of the lumbar spine without intravenous contrast. CTDI is 61.3 mGy and DLP is 2273.4 mGy-cm. This CT exam was performed using one or more of the following dose reduction techniques: automated exposure control, adjustment of the mA and/or kV according to patient size, and/or use of iterative reconstruction technique. COMPARISON: No relevant prior studies available. FINDINGS: Status post L4-5 posterior fusion and posterior decompression Vertebral: No acute fracture. No subluxation. Discs/spinal canal/neural foramina: Degenerative changes not well visualized due to metallic artifact. Soft tissues: Left basilar atelectasis. Postop changes in the posterior lumbar spine. IMPRESSION: Postop changes related to recent L4-5 fusion and laminectomies. For better characterization consider MRI.
[2023-10-05] MEDS: LEVOTHYROXINE 75 MCG TAB PO SCH (05:32)
[2023-10-05 05:51] LABS: Glucose,Whole Blood 283 mg/dL (70-110)
--- NOTE | 2023-10-05 06:53 | P.PN ---
Subjective Progress Note Date: 10/05/23 Principal diagnosis: 1. Grade I spondylolisthesis of L4 on L5, unstable 2. Right lower extremity radiculopathy 3. Bilateral lower extremity weakness Patient seen and examined this morning. Patient is resting comfortably in bed. She does complain of moderate low back pain with activity. Medications will be reviewed. power and recovery shift engineer RN does report that patient did have a drop in her O2 saturation and was placed on 6 L nasal cannula last night. She is currently on room air at 92%. Patient states she has been up since procedure and sat in the chair at bedside, tolerated activity well. Surgical incisions to the lumbar spine, edges are well-approximated with alpesh intact. New surgical dressings will be ordered. Patient reports improvement of bilateral lower extremity radiculopathy, although she reports some pain to the right esquivel. Informed patient that physical therapy will begin to work with her today. Patient states that LSO brace should be delivered to her home from [employer] today, family to bring in. Continue to encourage use of incentive spirometer x 10/h while awake. Ashraf catheter was removed this morning patient is due to void. She does report that she is passing gas. Patient has remained afebrile. No acute concerns at this time. Objective - Vital Signs Vital signs: Vital Signs Temp 98.6 F 10/05/23 01:44 Pulse 115 H 10/05/23 01:44 Resp 18 10/05/23 06:01 BP 135/74 10/05/23 01:44 Pulse Ox 96 10/05/23 06:01 FiO2 Intake & Output 10/04/23 10/04/23 10/05/23 06:59 18:59 06:59 Intake Total 1550 Output Total 800 215 Balance 750 -215 Weight 118.7 kg Intake: IV 1550 Output: Urine 600 215 Uretheral (Ashraf) 215 Estimated Blood Loss 200 Other: Voiding Method Indwelling Catheter Indwelling Catheter - Exam Physical Examination General: The patient is awake and alert, in no acute distress Skin: Skin is warm and dry with no obvious rashes or lesions. Surgical incisions to the lumbar spine, edges are well-approximated with alpesh intact. New surgical dressings will be ordered and applied. Eye: Pupils are equal, round and reactive to light, extra-ocular movements are intact; there is normal conjunctiva bilaterally. Neck: The neck is supple, there is no tenderness and ROM intact. Cardiovascular: There is a regular rate and rhythm. No murmur, rub or gallop is appreciated. Respiratory: Lungs are clear to auscultation, respirations are non-labored, breath sounds are equal. Gastrointestinal: Soft, non-distended, non-tender abdomen. Back: There is no tenderness to palpation in the midline, paralumbar, parathoracic or buttocks region. There is no obvious deformity . Musculoskeletal: ROM limited secondary to pain and stiffness from surgical procedure. Muscle strength in all major muscle groups of bilateral upper extremities 5/5, bilateral lower extremities 4/5. Neurological: CN 2-12 intact. There are no obvious motor or sensory deficits. Movement and coordination equal and intact. Sensory exam to light touch intact C5-T1 and intact from L2-S1. Reflexes 2/4 in bilateral upper and lower extremities. Negative Hoffmans, babinski, and clonus signs. Psychiatric: Cooperative, appropriate mood & affect, normal judgment. - Labs Labs: Abnormal Lab Results - Last 24 Hours (Table) 10/04/23 10/04/23 10/04/23 Range/Units 09:51 14:40 15:06 POC Glucose (mg/dL) 179 H 300 H 285 H (70-110) mg/dL 10/04/23 10/05/23 Range/Units 20:38 05:50 POC Glucose (mg/dL) 284 H 283 H (70-110) mg/dL Assessment and Plan Assessment: Postop day 1: L4-L5 minimally invasive TLIF 1. Grade I spondylolisthesis of L4 on L5, unstable 2. Right lower extremity radiculopathy 3. Bilateral lower extremity weakness Plan: -Appreciate consumer experience consultant and team management. -Activity: Ambulate QID, OOB all meals, up and about, limit lifting bending twisting to less than 5 lbs. Use walker or cane if needed for stability. Patient may be up without brace until this is delivered. -Daily PT/OT, increase ambulation strength and balance. -Brace when up and about, not needed in bed or chair -Patient reports that LSO brace will be delivered to her home today, family is to bring in. -Pain control: Adequate at this time -Meds: reviewed -GI ppx: senna, Miralax -DVT PPX: Heparin -Hygiene: Shower today. Maintain dressing clean and dry. Meticulous cleaning after BMs away from the incision site -Encourage IS 10x/hr -Dispo: Anticipate discharge home tomorrow with homecare *I reviewed and discussed this case with my attending Dr. Solis, whom has reviewed this chart and films and is in agreement with assessment and plan of care as outlined above. I have personally seen and examined the patient, performed the documentation and the assessment and plan as written. Number of minutes spent on the visit: 20m.
[2023-10-05] MEDS ORDERED: DEXTROSE 50% SYRINGE 50 ML IVP PRN ×2 (08:40)
[2023-10-05 08:43] LABS: Basophils # (A) 0.02 X 10*3/uL (0.00-0.10); Basophils % (A) 0.2 %; Eosinophils # (A) 0 X 10*3/uL (0.04-0.35); Eosinophils % (A) 0 %; HCT 32.9 % (37.2-46.3); HGB 10.8 g/dL (12.0-15.0); Lymphocytes # (A) 2.17 X 10*3/uL (0.90-5.00); Lymphocytes % (A) 18.5 %; MCH 29.8 pg (27.0-32.0); MCHC 32.8 g/dL (32.0-37.0); MCV 90.6 FL (80.0-97.0); Mean Platelet Volume 10.7 FL (9.5-12.2); Monocytes # (A) 0.77 X 10*3/uL (0.20-1.00); Monocytes % (A) 6.6 %; NRBC Per 100 WBC 0 X 10*3/uL (0.00-0.01); Neutrophils # (A) 8.67 X 10*3/uL (1.80-7.70); Neutrophils % (A) 73.8 %; Platelet Count 316 X 10*3/uL (140-440); RBC 3.63 X 10*6/uL (4.10-5.20); RDW 13.2 % (11.5-14.5); WBC 11.74 X 10*3/uL (4.50-10.00)
[2023-10-05] MEDS: PRAZOSIN 1 MG CAP PO SCH ×2 (08:46→20:15)
[2023-10-05] MEDS: FUROSEMIDE 20 MG TAB PO SCH (08:46)
[2023-10-05] MEDS: METOPROLOL SUCCINATE (ER) 25 MG TAB.ER.24H PO SCH (08:46)
[2023-10-05] MEDS: POTASSIUM CHLORIDE ER 20 MEQ TAB.ER PO SCH (08:46)
[2023-10-05] MEDS: SENNOSIDES-DOCUSATE SODIUM 1 EACH TAB PO SCH (08:46)
[2023-10-05 09:19] LABS: BUN/Creat Ratio 24.75 Ratio (12.00-20.00); Blood Urea Nitrogen 19.8 mg/dL (9.0-27.0); Calcium 8.3 mg/dL (8.7-10.3); Chloride 103 mmol/L (96-109); Glucose 247 mg/dL (70-110); Potassium 4.5 mmol/L (3.5-5.5); Sodium 139 mmol/L (135-145)
[2023-10-05] MEDS: NON FORMULARY DRUG (Cariprazine Hcl [Vraylar] 6 MG Capsule) PO SCH (09:25)
[2023-10-05] MEDS: HYDROcodone/APAP 10-325MG 1 EACH TAB PO PRN (09:28)
[2023-10-05] MEDS: VENLAFAXINE HCL ER 150 MG CAP PO SCH (09:28)
[2023-10-05] MEDS: PANTOPRAZOLE 40 MG TABLET PO SCH (09:29)
[2023-10-05] MEDS: FENOFIBRATE 160 MG TAB PO SCH (09:29)
[2023-10-05] MEDS: VENLAFAXINE HCL ER 37.5 MG CAP PO SCH (09:29)
[2023-10-05] MEDS: DAPAGLIFLOZIN PROPANEDIOL 10 MG TABLET PO SCH (09:29)
[2023-10-05] MEDS: INSULIN DETEMIR (LEVEMIR) 100 UNIT/ML SYR SQ SCH (09:29)
[2023-10-05 11:42] LABS: Glucose,Whole Blood 293 mg/dL (70-110)
[2023-10-05] MEDS: INSULIN ASPART (NovoLOG) 100 UNIT/ML VIAL SQ SCH (11:56)
[2023-10-05 13:55] LABS: Glucose,Whole Blood 276 mg/dL (70-110)
[2023-10-05 16:46] LABS: Glucose,Whole Blood 243 mg/dL (70-110)
[2023-10-05] MEDS ORDERED: LORazepam 1 MG TAB PO PRN (17:09)
--- NOTE | 2023-10-05 17:12 | P.PN ---
Subjective Progress Note Date: 10/05/23 (delayed charting seen at 0945) Patient is a 53-year-old female with diabetes mellitus type 2 requiring insulin, GERD, hypertension, dyslipidemia, hypothyroidism, asthma, and class III obesity who presented for L4-5 decompression with interbody fusion. Patient tolerated the procedure well. Patient seen and examined at bedside. She complains of feeling shaky today. She denies any lightheadedness, dizziness, chest pain, or shortness of breath. She states she typically takes regular insulin at home. Her last A1c was several months ago and it was 11. She then started seeing Dr. Fitch who has been adjusting her insulin regimen. Vital signs reviewed General: Nontoxic, no distress, appears at stated age, obese Cardiovascular: S1S2 reg, no murmur Lungs: Decreased breath sounds bilateral, no rhonchi, no rales, no accessory muscle use Abdominal: Soft, nontender to palpation, no guarding Ext: No gross muscle atrophy, no edema b/l lower extremities, no contractures Neuro: CN II-XI grossly intact, no focal neuro deficits Psych: Alert, oriented, appropriate affect Assessment/Plan: 53-year-old female status post L4-5 TLIF. Postoperative management per orthopedic surgery Diabetes mellitus type 2 with hyperglycemia -Most recent A1c 11 -Hold metformin, tirzepatide, and regular insulin -Sliding scale insulin -NovoLog 5 units with meals -Levemir 10 units twice daily -Follow blood sugars closely -Jardiance substituted on formulary for Farxiga 10 mg daily Acute blood loss anemia anticipated outcome of surgery -Follow CBC -No indication for transfusion at this time Class III obesity with BMI 47.9 -Outpatient structured weight loss -Patient is on Mounjaro on an outpatient basis Hypertension Dyslipidemia -Metoprolol 25 mg daily, lisinopril 2.5 mg daily -Renard 80 mg at night Chronic: GERD Hypothyroidism Imaging: None new Data Review: Labs reviewed from today include CBC and CMP which are remarkable for white blood cell count 11.74 and hemoglobin 10.8. Blood sugars have been elevated in the 200s Thank you for allowing us to participate in the care of this pleasant patient. Do not hesitate to contact us with questions. Someone can be reached from the [facility] hospitalist group all hours of the day at [phone] or via [employer] serve. This dictation was prepared using [employer] voice recognition software. Though every attempt is made to correct errors during dictation some may still exist. Objective - Vital Signs Vital signs: Vital Signs Temp 99.3 F 10/05/23 13:30 Pulse 108 H 10/05/23 13:30 Resp 18 10/05/23 13:30 BP 89/54 10/05/23 13:30 Pulse Ox 94 L 10/05/23 13:30 FiO2 Intake & Output 10/04/23 10/05/23 10/05/23 18:59 06:59 18:59 Intake Total 1550 Output Total 800 615 Balance 750 -615 Weight 118.7 kg Intake: IV 1550 Output: Urine 600 615 Uretheral (Ashraf) 215 Estimated Blood Loss 200 Other: Voiding Method Indwelling Catheter Indwelling Catheter # Voids 1 - Labs CBC & Chem 7: 10/05/23 05:46 10/05/23 05:46 Labs: Abnormal Lab Results - Last 24 Hours (Table) 10/04/23 10/05/23 10/05/23 Range/Units 20:38 05:46 05:46 WBC 11.74 H (4.50-10.00) X 10*3/uL RBC 3.63 L (4.10-5.20) X 10*6/uL Hgb 10.8 L (12.0-15.0) g/dL Hct 32.9 L (37.2-46.3) % Immature Gran # 0.11 H (0.00-0.04) X 10*3/uL Neutrophils # 8.67 H (1.80-7.70) X 10*3/uL Eosinophils # 0 L (0.04-0.35) X 10*3/uL BUN/Creatinine Ratio 24.75 H (12.00-20.00) Ratio Glucose 247 H (70-110) mg/dL POC Glucose (mg/dL) 284 H (70-110) mg/dL Calcium 8.3 L (8.7-10.3) mg/dL 10/05/23 10/05/23 10/05/23 Range/Units 05:50 11:41 13:52 WBC (4.50-10.00) X 10*3/uL RBC (4.10-5.20) X 10*6/uL Hgb (12.0-15.0) g/dL Hct (37.2-46.3) % Immature Gran # (0.00-0.04) X 10*3/uL Neutrophils # (1.80-7.70) X 10*3/uL Eosinophils # (0.04-0.35) X 10*3/uL BUN/Creatinine Ratio (12.00-20.00) Ratio Glucose (70-110) mg/dL POC Glucose (mg/dL) 283 H 293 H 276 H (70-110) mg/dL Calcium (8.7-10.3) mg/dL 10/05/23 Range/Units 16:45 WBC (4.50-10.00) X 10*3/uL RBC (4.10-5.20) X 10*6/uL Hgb (12.0-15.0) g/dL Hct (37.2-46.3) % Immature Gran # (0.00-0.04) X 10*3/uL Neutrophils # (1.80-7.70) X 10*3/uL Eosinophils # (0.04-0.35) X 10*3/uL BUN/Creatinine Ratio (12.00-20.00) Ratio Glucose (70-110) mg/dL POC Glucose (mg/dL) 243 H (70-110) mg/dL Calcium (8.7-10.3) mg/dL
[2023-10-05] MEDS: polyethylene glycoL 3350 17 GM POWD.PACK PO SCH (20:15)
[2023-10-05 21:06] LABS: Glucose,Whole Blood 237 mg/dL (70-110)
[2023-10-06 05:53] LABS: HCT 31.6 % (34.0-46.0); HGB 10.2 gm/dL (11.4-16.0); MCH 29.6 pg (25.0-35.0); MCHC 32.4 g/dL (31.0-37.0); MCV 91.4 fL (80.0-100.0); Mean Platelet Volume 8.3; Platelet Count 276 k/uL (150-450); RBC 3.46 m/uL (3.80-5.40); RDW 13.6 % (11.5-15.5); WBC 9.3 k/uL (3.8-10.6)
[2023-10-06 05:54] LABS: Glucose,Whole Blood 230 mg/dL (70-110)
[2023-10-06 06:04] LABS: African American GFR (CKD) >90 (>60 ml/min/1.73 sqM); Anion Gap 2 mmol/L; Blood Urea Nitrogen 13 mg/dL (7-17); Calcium 8.1 mg/dL (8.4-10.2); Carbon Dioxide 29 mmol/L (22-30); Chloride 107 mmol/L (98-107); Glucose 177 mg/dL (74-99); Non-African American GFR(CKD) >90 (>60 ml/min/1.73 sqM); Potassium 3.6 mmol/L (3.5-5.1); Sodium 138 mmol/L (137-145)
[2023-10-06 08:17] VITALS: BP 117/77; PULSE 98; RESP 17; TEMP 98.6
[2023-10-06] MEDS: MAGNESIUM OXIDE 400 MG TAB PO SCH (08:27)
--- NOTE | 2023-10-06 08:52 | P.PN ---
Subjective Progress Note Date: 10/06/23 Principal diagnosis: 1. Grade I spondylolisthesis of L4 on L5, unstable 2. Right lower extremity radiculopathy 3. Bilateral lower extremity weakness Patient seen and examined this morning. Patient is sitting up in chair at bedside. She reports that her pain is better managed on current regimen. Surgical incisions to the lumbar spine are clean dry and intact. Patient states that her LSO brace has been delivered to her home and that her sister will be bringing in today. Patient states she did work with physical therapy yesterday and tolerated activity well. She states she feels comfortable with going home. No acute concerns at this time. Objective - Vital Signs Vital signs: Vital Signs Temp 98.6 F 10/06/23 07:15 Pulse 98 10/06/23 07:15 Resp 17 10/06/23 07:15 BP 117/77 10/06/23 07:15 Pulse Ox 95 10/06/23 07:15 FiO2 Intake & Output 10/05/23 10/06/23 10/06/23 18:59 06:59 18:59 Other: # Voids 4 2 - Exam Physical Examination General: The patient is awake and alert, in no acute distress Skin: Skin is warm and dry with no obvious rashes or lesions. Surgical inc isions to the lumbar spine, Dressing is clean dry and intact Eye: Pupils are equal, round and reactive to light, extra-ocular movements are intact; there is normal conjunctiva bilaterally. Neck: The neck is supple, there is no tenderness and ROM intact. Cardiovascular: There is a regular rate and rhythm. No murmur, rub or gallop is appreciated. Respiratory: Lungs are clear to auscultation, respirations are non-labored, breath sounds are equal. Gastrointestinal: Soft, non-distended, non-tender abdomen. Back: There is no tenderness to palpation in the midline, paralumbar, parathor acic or buttocks region. There is no obvious deformity . Musculoskeletal: ROM limited secondary to pain and stiffness from surgical procedure. Muscle strength in all major muscle groups of bilateral upper extremities 5/5, bilateral lower extremities 4/5. Neurological: CN 2-12 intact. There are no obvious motor or sensory deficits. Movement and coordination equal and intact. Sensory exam to light touch intact C5-T1 and intact from L2-S1. Reflexes 2/4 in bilateral upper and lower extremities. Negative Hoffmans, babinski, and clonus signs. Psychiatric: Cooperative, appropriate mood & affect, normal judgment. - Labs CBC & Chem 7: 10/06/23 05:25 10/06/23 05:25 Labs: Abnormal Lab Results - Last 24 Hours (Table) 10/05/23 10/05/23 10/05/23 Range/Units 05:46 05:46 11:41 WBC 11.74 H (4.50-10.00) X 10*3/uL RBC 3.63 L (4.10-5.20) X 10*6/uL Hgb 10.8 L (12.0-15.0) g/dL Hct 32.9 L (37.2-46.3) % Immature Gran # 0.11 H (0.00-0.04) X 10*3/uL Neutrophils # 8.67 H (1.80-7.70) X 10*3/uL Eosinophils # 0 L (0.04-0.35) X 10*3/uL BUN/Creatinine Ratio 24.75 H (12.00-20.00) Ratio Glucose 247 H (70-110) mg/dL POC Glucose (mg/dL) 293 H (70-110) mg/dL Calcium 8.3 L (8.7-10.3) mg/dL 10/05/23 10/05/23 10/05/23 Range/Units 13:52 16:45 21:04 WBC (4.50-10.00) X 10*3/uL RBC (4.10-5.20) X 10*6/uL Hgb (12.0-15.0) g/dL Hct (37.2-46.3) % Immature Gran # (0.00-0.04) X 10*3/uL Neutrophils # (1.80-7.70) X 10*3/uL Eosinophils # (0.04-0.35) X 10*3/uL BUN/Creatinine Ratio (12.00-20.00) Ratio Glucose (70-110) mg/dL POC Glucose (mg/dL) 276 H 243 H 237 H (70-110) mg/dL Calcium (8.7-10.3) mg/dL 10/06/23 10/06/23 10/06/23 Range/Units 05:25 05:25 05:47 WBC (4.50-10.00) X 10*3/uL RBC 3.46 L (4.10-5.20) X 10*6/uL Hgb 10.2 L (12.0-15.0) g/dL Hct 31.6 L (37.2-46.3) % Immature Gran # (0.00-0.04) X 10*3/uL Neutrophils # (1.80-7.70) X 10*3/uL Eosinophils # (0.04-0.35) X 10*3/uL BUN/Creatinine Ratio (12.00-20.00) Ratio Glucose 177 H (70-110) mg/dL POC Glucose (mg/dL) 230 H (70-110) mg/dL Calcium 8.1 L (8.7-10.3) mg/dL Assessment and Plan Assessment: Postop day 2: L4-L5 minimally invasive TLIF 1. Grade I spondylolisthesis of L4 on L5, unstable 2. Right lower extremity radiculopathy 3. Bilateral lower extremity weakness Plan: -Appreciate content management consultant and team management. -Activity: Ambulate QID, OOB all meals, up and about, limit lifting bending twisting to less than 5 lbs. Use walker or cane if needed for stability. Patient may be up without brace until this is delivered. -Daily PT/OT, increase ambulation strength and balance. -Brace when up and about, not needed in bed or chair -Patient reports that LSO brace will be delivered to her home today, family is to bring in. -Pain control: Adequate at this time -Meds: reviewed -GI ppx: senna, Miralax -DVT PPX: Heparin -Hygiene: Shower today. Maintain dressing clean and dry. Meticulous cleaning after BMs away from the incision site -Encourage IS 10x/hr -Dispo: Discharge home today with home care *I reviewed and discussed this case with my attending Dr. Solis, whom has reviewed this chart and films and is in agreement with assessment and plan of care as outlined above. I have personally seen and examined the patient, performed the documentation and the assessment and plan as written. Number of minutes spent on the visit: 20m.
--- NOTE | 2023-10-06 09:01 | P.DS ---
Providers Date of admission: 10/04/23 Expected date of discharge: 10/06/23 Attending physician: Demario Solis DO Consults: 10/04/23 14:35 Consult Physician Routine Consulting Provider: Anay Braga Consult Reason/Comments: medical management s/p L4-L5 MIS PLIF Do you want consulting provider notified?: Yes Primary care physician: [facility] Course: hospital Course: The patient was evaluated preoperatively and found to have the diagnosis of Grade 1 spondylolisthesis L4-L5 They underwent appropriate preoperative care and were willing to undergo the intended procedure. They underwent a successful L4- L5 minimally invasive TLIF were recovered appropriately and sent to the floor. While on the floor they worked with physical therapy, occupational therapy and nursing to enhance their recovery experience. Their pain was well controlled through their stay and they were started on appropriate medications, DVT ppx modalities, activity and dietary needs. Daily labs were monitored closely, and transfusions were only used when necessary. Medicine as well as other consulting services have made their input and have helped with our team approach and m ultidisciplinary care. PT milestones have been met and passed and they have made the recommendation of Home with home care for this patient and treating providers agree with this care path. The patient will be discharged home with appropriate medications, instructions and follow-up information and in stable condition. Patient Condition at Discharge: Good Plan - Discharge Summary Discharge Rx Participant: No New Discharge Prescriptions: New Cyclobenzaprine [Flexeril] 5 mg PO TID PRN #40 tablet PRN Reason: Muscle Spasm Sennosides/Docusate Sodium [Senna Plus 8.6-50 mg Softgel] 1 each PO DAILY PRN #20 capsule PRN Reason: Constipation Sulfamethox-Tmp 800-160Mg [Bactrim DS 800-160 mg] 1 tab PO Q12HR #10 tab HYDROcodone/APAP 7.5-325MG [[place] 7.5] 1 each PO Q4-6H PRN #42 tab PRN Reason: Pain No Action Omeprazole [PriLOSEC] 20 mg PO QAM Levothyroxine Sodium [Synthroid] 150 mcg PO QAM Empagliflozin [Jardiance] 25 mg PO QAM Insulin Regular [humuLIN R] 80 units SQ AC-BRKFST Prazosin HCl 2 mg PO HS Furosemide [Lasix] 80 mg PO QAM lisinopriL [Lisinopril] 2.5 mg PO QAM Aspirin [Adult Low Dose Aspirin EC] 81 mg PO QAM LORazepam [Ativan] 1 mg PO DAILY PRN PRN Reason: Anxiety traZODone HCL 100 mg PO BID Prazosin [Minipress] 5 mg PO QAM Albuterol Sulfate [Ventolin HFA] 1 - 2 puff INHALATION Q6H PRN PRN Reason: Dyspnea Albuterol Nebulized [Ventolin Nebulized (Accuneb)] 1.25 mg INHALATION Q6H PRN PRN Reason: Dyspnea Budesonide-Formot 160-4.5 Mcg [Symbicort 160-4.5 Mcg Inhaler] 2 puff INHALATION BID metFORMIN HCL [Glucophage] 1,000 mg PO QAM Ergocalciferol (Vitamin D2) [Drisdol (50,000 Iu)] 1,250 mcg PO Q7D Fenofibrate Nanocrystallized [Fenofibrate] 160 mg PO QAM Dicyclomine [Bentyl] 20 mg PO QID PRN PRN Reason: IBS Venlafaxine HCl ER [Effexor XR] 150 mg PO DAILY Metoprolol Succinate [Metoprolol Succinate ER] 25 mg PO QAM Meclizine HCl 25 mg PO BID PRN PRN Reason: Vertigo Magnesium Oxide 400 mg PO QAM Rosuvastatin Calcium 40 mg PO HS Cariprazine HCl [Vraylar] 6 mg PO DAILY traMADol HCL 50 mg PO BID PRN PRN Reason: Pain Ondansetron [Zofran] 4 mg PO Q8HR PRN PRN Reason: Nausea Potassium Chloride ER [K-Dur 20] 20 meq PO DAILY Tirzepatide [Mounjaro] 7.5 mg SQ TU Insulin Regular [humuLIN R] 40 units SQ HS Venlafaxine HCl ER [Effexor Xr] 37.5 mg PO DAILY Discharge Medication List Omeprazole [PriLOSEC] 20 mg PO QAM 01/12/19 [History] Levothyroxine Sodium [Synthroid] 150 mcg PO QAM 11/10/19 [History] Empagliflozin [Jardiance] 25 mg PO QAM 12/11/20 [History] Ergocalciferol (Vitamin D2) [Drisdol (50,000 Iu)] 1,250 mcg PO Q7D 07/14/21 [History] Fenofibrate Nanocrystallized [Fenofibrate] 160 mg PO QAM 08/03/21 [History] Dicyclomine [Bentyl] 20 mg PO QID PRN 08/25/21 [History] Insulin Regular [humuLIN R] 80 units SQ AC-BRKFST 10/16/21 [History] Prazosin HCl 2 mg PO HS 10/16/21 [History] Venlafaxine HCl ER [Effexor XR] 150 mg PO DAILY 10/16/21 [History] Furosemide [Lasix] 80 mg PO QAM 01/21/22 [History] Magnesium Oxide 400 mg PO QAM 01/21/22 [History] Meclizine HCl 25 mg PO BID PRN 01/21/22 [History] Metoprolol Succinate [Metoprolol Succinate ER] 25 mg PO QAM 01/21/22 [History] Aspirin [Adult Low Dose Aspirin EC] 81 mg PO QAM 12/16/22 [History] Rosuvastatin Calcium 40 mg PO 12/16/22 [History] lisinopriL [Lisinopril] 2.5 mg PO QAM 12/16/22 [History] Albuterol Nebulized [Ventolin Nebulized (Accuneb)] 1.25 mg INHALATION Q6H PRN 09/29/23 [History] Albuterol Sulfate [Ventolin HFA] 1 - 2 puff INHALATION Q6H PRN 09/29/23 [History] Budesonide-Formot 160-4.5 Mcg [Symbicort 160-4.5 Mcg Inhaler] 2 puff INHALATION BID 09/29/23 [History] Cariprazine HCl [Vraylar] 6 mg PO DAILY 09/29/23 [History] Insulin Regular [humuLIN R] 40 units SQ 09/29/23 [History] LORazepam [Ativan] 1 mg PO DAILY PRN 09/29/23 [History] Ondansetron [Zofran] 4 mg PO Q8HR PRN 09/29/23 [History] Potassium Chloride ER [K-Dur 20] 20 meq PO DAILY 09/29/23 [History] Prazosin [Minipress] 5 mg PO QAM 09/29/23 [History] Tirzepatide [Mounjaro] 7.5 mg SQ TU 09/29/23 [History] metFORMIN HCL [Glucophage] 1,000 mg PO QAM 09/29/23 [History] traMADol HCL 50 mg PO BID PRN 09/29/23 [History] traZODone HCL 100 mg PO BID 09/29/23 [History] Venlafaxine HCl ER [Effexor Xr] 37.5 mg PO DAILY 10/05/23 [History] Cyclobenzaprine [Flexeril] 5 mg PO TID PRN #40 tablet 10/06/23 [Rx] HYDROcodone/APAP 7.5-325MG [[place] 7.5] 1 each PO Q4-6H PRN #42 tab 10/06/23 [Rx] Sennosides/Docusate Sodium [Senna Plus 8.6-50 mg Softgel] 1 each PO DAILY PRN #20 capsule 10/06/23 [Rx] Sulfamethox-Tmp 800-160Mg [Bactrim DS 800-160 mg] 1 tab PO Q12HR #10 tab 10/06/23 [Rx] Follow up Appointment(s)/Referral(s): Demario Solis DO [Doctor of Osteopathic Medicine] - 10/18/23 9:15 am [facility] Visiting Nurse, [NON-STAFF] - As Needed ([facility] will call you to schedule your in home nursing, physical therapy, and occupational therapy visits. ) Activity/Diet/Wound Care/Special Instructions: spine Discharge and Recovery Instructions Date of Surgery: 10/04/2023 Diagnosis: grade 1 spondylolisthesis L4-L5 Procedure: L4-L5 minimally invasive TLIF Medications: See medication list All medication refills should be obtained through your primary care doctor or your clinic spine surgeon. Please discuss prescription refills at your follow up appointment. Do not call the hospital for medication refills. Activity: Encourage ambulation with assist of walker, Up and about 6-8x daily PT/OT daily work on balance, strength and mobility Up in chair with all meals Shower daily Brace: Use brace when up and about, do not wear in bed or shower Dressing: Leave your dressing in place for a total of 3 days post operatively. Then you may remove your dressing and leave open to air. Keep the area clean and if not able to keep area clean, then cover with sterile gauze and tape. Showering: You may shower 3 days after your procedure allowing soap and water to run over incision. Do not scrub. Do not soak. Blot dry. Follow up: Please confirm a follow up appointment with your surgeon 2 weeks post operatively. Please make an appointment to follow up with your PCP in 1-2 weeks after surgery for evaluation `3 phase, 3-week plan POST OP WEEKS 1-3 1. Lifting/carrying/pushing/pulling limited to less than 5 pounds. 2. Do not sit for longer than 15 minutes at one time. Get up and walk around. Prolonged sitting is NOT advised. If you lay down, see if you can tolerate laying down on you front (belly side) 3. Walk for periods of 15 minutes = 1 mile but no longer; do it multiple times times each day. 4. Ice your low back after activity. POST OP WEEKS 3-6 1. Lifting limited to less than 20 pounds. 2. Do not sit for longer than 30 minutes at a time. Frequently change positions. Use a sit-to stand workstation or take frequent breaks from sitting if you have returned to work. 3. Walk for 30 minutes each day. If possible, do these three or more times a day POST OP WEEKS 6+ At your 6-week appointment we will give you a physical therapy referral to focus on a core stabilization and strengthening program. You should also work on leg & buttock strengthening, hamstring & quadriceps stretching, and continue a low impact aerobic activity program such as swimming, walking, or riding a stationary bicycle. During the initial 6 weeks after your surgery, you are at the highest risk of re-injuring your spine. You should generally avoid BLTs (bending, lifting and twisting combination motions) and follow the above guidelines to reduce the chance of reinjury. You can anticipate post op appointments in our office at approximately 3 weeks and 6 weeks after your surgery. INCISION CARE: If your incision is not draining you do NOT need to cover it with a dressing. Keep your incision clean, dry and intact. In most cases, we apply skin glue, alpesh or sutures to the incision at the time of surgery. This will be like a crust or have the appearance of a scab and will fall off in time on its own. The stitches or alpesh need to be removed at 3 weeks post op appointment. You may begin to shower 3 days after surgery (this allows the glue to coulter well). However, please avoid scrubbing the incision site or peeling off any of the skin glue. This will ensure optimal healing of your incision. Also, during this time avoid soaking the incision area in water - this includes swimming pools, hot tubs or baths. No ointments, lotions or oils on the incision until your surgeon allows. Leave alpesh, sutures or glue in place. Neurological dysfunction that comes on suddenly can also be a sign of a stroke. Below some common symptoms of a stroke are listed: B - balance difficulty such as sudden onset walking or leaning to one side - NEW E - eye problem such as sudden double vision or trouble seeing on one side - NEW F - Facial weakness or numbness on one side - NEW A - Arm or leg weakness or numbness on one side - NEW S - Slurred speech or difficulty with word finding - NEW T - Time is BRAIN! Call 911 as soon as you recognize these symptoms Diet: Consume a regular diet rich in vegetables and lean protein such as chicken or fish. You should consume in a ratio of approximately 20% fats|40% carbohydrates|40%protein. Vegetables, sweet potatoes, brown rice or quinoa are examples of good carbohydrates. Chips, white bread, cookies and sweets/sugar are examples of bad carbohydrates. Limit your bad carbs, go wild with good carbs. "Life's Simple 7" Guidelines as per [place] [employer] These will help you reclaim your life after surgery and printer helper in your recover y, keeping in mind your restrictions. (1) Get Active. Physical activity can help people lose weight, control high blood pressure and cholesterol, feel emotionally better, and sleep better. (2) Control Cholesterol. Avoid a diet high in saturated fat, trans fat, & cholesterol. Limit whole milk & cream, ice cream, butter, egg yolks, processed meats (like sausage and hot dogs), and fatty meats. Choose healthy foods that are low in saturated fat, trans fat and cholesterol which include: Fruits and vegetables, fiber rich grain products (like whole grain pasta and brown rice), lean meat such as chicken, fish, nuts, seeds, and legumes. (3) Eat Better. Eat small portions. Shop at the grocery with a list and do not stray from it. Tips for a healthy diet include: Limit sodium intake to less than 1500mg daily, avoid prepackaged, processed, and fast foods, choose a diet rich in fruits, vegetables, and whole grain, high fiber foods, and limit saturated & cholesterol in your diet. (4) Manage Blood Pressure. If you have high blood pressure, you should have a cuff at home so that you can check your blood pressure regularly. Be sure you have a good cuff. An arm one is generally better than a wrist one. Bring the cuff to a doctor's appointment to validate that the measurements that your cuff are taking are accurate. Take your blood pressure twice daily when you are sitting down and relaxing. Record the numbers in a log and bring this log with you to your doctors' appointments. (5) Lose Weight if your BMI is above 25. A healthy BMI is between 19-25. To calculate Your BMI, you may use a Standard BMI Calculator on the NIH BMI website: <www.nhlbi.nih.gov/guidelines/obesity/BMI/bmicalc.htm>. Weigh oneself daily. If you are overweight, set a goal to lose weight. A pound a week loss if needed is a good target. (6) Reduce Blood Sugar. Limit foods and liquids with "added sugars." (Added sugars include sucrose, fructose, glucose, maltose, dextrose, high fructose corn syrup, corn syrup, concentrated fruit juice and honey). (7) Stop Smoking. If you smoke, quitting smoking is one of the best things that you can do for your health. Smoking increases your risk of heart attack, stroke, and peripheral vascular disease, which is a build-up of plaque in your arteries. Please discard all the cigarettes and lighters in your house. Have a plan for what you will do when you have the urge to smoke. Direct and second- hand smoke shortens your life as well as the lives of your family, friends and others around you. For your health and the health of those around you, please consider quitting! Proper Bending Body Mechanics: Maintain a wide stance with one foot slightly in front of the other. Keep your back straight. Bend utilizing the strength in your hips and knees. Do not bend at the waist. Maintain the lifted object at your waist-level close to your body. Avoid lifting weight that causes immediately pain or pain anywhere in the body afterwards. Smoking/Nicotine If there was ever one thing that you could do to increase your overall health, decrease your risk of cardiovascular problems by about 39% the second you make the choice, it is to STOP SMOKING. Your body's most instant gratification is the second you stop smoking. We have all heard the studies, read the articles but it is true, smoking is extremely bad for your overall health, and moreover it is detrimental to your bone health. Nicotine, IN ANY FORM, kills bone cells, prevents your body from healing fractures, and significantly prolongs healing after surgery. In spine surgery specifically, it increases your risk of not healing your bones to create a fusion and increases your risk of having a revision surgery due to this up to 60%. I know it is hard. I know it feels impossible. But there are ways. Take control of your life. We are here to help you through it. And when you are ready, ask us and we can direct you to help if you desire. Use the START Plan to Quit Smoking (please visit the [employer]org website listed below for more information): S = Set a quit date. Choose a date within the next 2 weeks, so you have enough time to prepare without losing your motivation to quit. If you mainly smoke at work, quit on the weekend, so you have a few days to adjust to the change. T = Tell family, friends, and co-workers that you plan to quit. Let your friends and family in on your plan to quit smoking and tell them you need their support and encouragement to stop. Look for a quit deirdre who wants to stop smoking as well. You can help each other get through the rough times. A = Anticipate and plan for the challenges you'll face while quitting. Most people who begin smoking again do so within the first 3 months. You can help yourself make it through by preparing ahead for common challenges, such as nicotine withdrawal and cigarette cravings. R = Remove cigarettes and other tobacco products from your home, car, and work. Throw away all your cigarettes (no emergency pack!), lighters, ashtrays, and matches. Wash your clothes and freshen up anything that smells like smoke. Shampoo your car, clean your drapes and carpet, and steam your furniture. T = Talk to your doctor about getting help to quit. Your doctor can prescribe medication to help with withdrawal and suggest other alternatives. If you can't see a doctor, you can get many products over the counter at your local pharmacy or grocery store, including the nicotine patch, nicotine lozenges, and nicotine gum. Resources for Quitting Smoking: <https://www.[place].gov/documents/[facility]/Quit_Tobacco_Resources_for_patients_313 480_7.pdf> Supplementation: Take recommended dosages of Vitamin D and Calcium to help fortify your bones and help them to heal. See your health maintenance packet for dosages and recommended levels. DVT/VTE prophylaxis: You will be given compression stockings from the hospital. Wear these daily for the first two weeks after surgery. You may take them off at night. You may be prescribed a medication to help thin your blood. Take this as directed. If you are not prescribed this medication, early and frequent ambulation has been shown to be the best prophylaxis to deep vein thrombosis and sequelae related to this event. Discharge Disposition: HOME WITH HOME HEALTH SERVICES
--- NOTE | 2023-10-06 14:55 | P.PN ---
Subjective Progress Note Date: 10/06/23 (delayed charting seen at 1045) Patient is a 53-year-old female with diabetes mellitus type 2 requiring insulin, GERD, hypertension, dyslipidemia, hypothyroidism, asthma, and class III obesity who presented for L4-5 decompression with interbody fusion. Patient tolerated the procedure well. Patient seen and examined at bedside. Patient seen and examined at bedside. She is doing well today. She has no complaints. Pain is well-controlled. Her shaking has resolved. We discussed that she has required much less insulin here than she does at home. I believe it is due to her diet. We discussed that if she eats less at home she should decrease her insulin at the same amount. Vital signs reviewed General: Nontoxic, no distress, appears at stated age, obese Cardiovascular: S1S2 reg, no murmur Lungs: Decreased breath sounds bilateral, no rhonchi, no rales, no accessory muscle use Abdominal: Soft, nontender to palpation, no guarding Ext: No gross muscle atrophy, no edema b/l lower extremities, no contractures Neuro: CN II-XI grossly intact, no focal neuro deficits Psych: Alert, oriented, appropriate affect Assessment/Plan: 53-year-old female status post L4-5 TLIF. Postoperative management per orthopedic surgery Diabetes mellitus type 2 with hyperglycemia -A18.6 down form 11 -Resume home tirzepatide, Jardiance, and metformin dosing -Resume home regular insulin 80 units with breakfast and 40 units at. - The following instructions were placed on patient's discharge. "For insulin please match your insulin to your oral intake. Meaning if you eat 50% of your meal only take 50% of your insulin. " Acute blood loss anemia anticipated outcome of surgery - stable -No indication for transfusion at this time Class III obesity with BMI 47.9 -Outpatient structured weight loss -Patient is on Mounjaro on an outpatient basis Hypertension Dyslipidemia -Metoprolol 25 mg daily, lisinopril 2.5 mg daily -Lipitor 80 mg at night Chronic: GERD Hypothyroidism Medically optimized for discharge at the discretion of orthopedic spine surgery. Imaging: None new Data Review: Labs reviewed from today include CBC and basic metabolic profile which are remarkable for hemoglobin of 10.2. A1c 8.7 which is much improved from her prior of 11. Thank you for allowing us to participate in the care of this pleasant patient. Do not hesitate to contact us with questions. Someone can be reached from the [facility] hospitalist group all hours of the day at [phone] or via perfect serve. This dictation was prepared using [employer] voice recognition software. Though every attempt is made to correct errors during dictation some may still exist. Objective - Vital Signs Vital signs: Vital Signs Temp 98.6 F 10/06/23 07:15 Pulse 98 10/06/23 07:15 Resp 17 10/06/23 07:15 BP 117/77 10/06/23 07:15 Pulse Ox 91 L 10/06/23 10:43 FiO2 Intake & Output 10/05/23 10/06/23 10/06/23 18:59 06:59 18:59 Other: # Voids 4 2 - Labs CBC & Chem 7: 10/06/23 05:25 10/06/23 05:25 Labs: Abnormal Lab Results - Last 24 Hours (Table) 10/05/23 10/05/23 10/06/23 Range/Units 16:45 21:04 05:25 RBC (3.80-5.40) m/uL Hgb (11.4-16.0) gm/dL Hct (34.0-46.0) % Glucose (74-99) mg/dL POC Glucose (mg/dL) 243 H 237 H (70-110) mg/dL Hemoglobin A1c 8.7 H (<=6.0) % Calcium (8.4-10.2) mg/dL 10/06/23 10/06/23 10/06/23 Range/Units 05:25 05:25 05:47 RBC 3.46 L (3.80-5.40) m/uL Hgb 10.2 L (11.4-16.0) gm/dL Hct 31.6 L (34.0-46.0) % Glucose 177 H (74-99) mg/dL POC Glucose (mg/dL) 230 H (70-110) mg/dL Hemoglobin A1c (<=6.0) % Calcium 8.1 L (8.4-10.2) mg/dL
[2023-10-06] MEDS ORDERED: INSULIN DETEMIR (LEVEMIR) 100 UNIT/ML SYR SQ SCH (21:00)
== END 2023-10-06 11:31 | disposition home health service (06) ==
LOC: OR 08:39 → 4SSUR 14:10 → OR 10-06 11:31
PROVIDERS: ATTEND Orthopaedic Surgery
DX: M47.26 Other spondylosis with radiculopathy, lumbar region (principal); K58.9 Irritable bowel syndrome, unspecified; K21.9 Gastro-esophageal reflux disease without esophagitis; J45.909 Unspecified asthma, uncomplicated; I10 Essential (primary) hypertension; F41.9 Anxiety disorder, unspecified; F32.A Depression, unspecified; F25.9 Schizoaffective disorder, unspecified; E78.5 Hyperlipidemia, unspecified; E66.01 Morbid (severe) obesity due to excess calories; E11.65 Type 2 diabetes mellitus with hyperglycemia; E03.9 Hypothyroidism, unspecified; D62 Acute posthemorrhagic anemia; F17.210 Nicotine dependence, cigarettes, uncomplicated; Z68.42 Body mass index [BMI] 45.0-49.9, adult; Z79.4 Long term (current) use of insulin; Z79.51 Long term (current) use of inhaled steroids; Z79.82 Long term (current) use of aspirin; Z79.84 Long term (current) use of oral hypoglycemic drugs; Z79.890 Hormone replacement therapy; Z79.899 Other long term (current) drug therapy; Z88.1 Allergy status to other antibiotic agents; Z88.8 Allergy status to other drugs, medicaments and biological substances; Z98.890 Other specified postprocedural states
CPT/HCPCS: 94640 ×4; 97161; 80048 ×2; 85025; 85027; 83036; 72100; 72131; 20936; 22853; 22633; 22859; C1713 ×2; C1762; C1734; J2250; J1100; J0690 ×2; J2405; J1170 ×3; J0665

== ENCOUNTER → 2023-10-13 | Outpatient (CLI) | payer OTHER ==
--- NOTE | 2023-10-13 16:20 | US ---
EXAMINATION TYPE: US venous doppler duplex LE RT DATE OF EXAM: 10/13/2023 4:04 PM COMPARISON: NONE CLINICAL INDICATION: Female, 53 years old with history of R22.41 LOCALIZED SWELLING, MASS AND LUMP, R IGHT LO; back surgery a few weeks ago, posterior right thigh pain SIDE PERFORMED: Right TECHNIQUE: The lower extremity deep venous system is examined utilizing real time linear array sonog kuldip with graded compression, doppler sonography and color-flow sonography. VESSELS IMAGED: Common Femoral Vein Deep Femoral Vein Femoral Vein Popliteal Vein Proximal Calf Veins (* superficial vessels) Right Leg: Negative for DVT exam very limited by patient mobility, pannus, large body habitus and edema, negative for DVT as best visualized IMPRESSION: Grayscale, color doppler, spectral doppler imaging performed of the deep veins of the lo wer extremities. There is normal flow, compressibility, vascular waveforms.
== END | disposition home or self-care (01) ==
LOC: RADUSWWP 14:53
PROVIDERS: ATTEND Family Medicine
DX: M79.661 Pain in right lower leg (principal); R22.41 Localized swelling, mass and lump, right lower limb

== ENCOUNTER → 2024-01-20 | Outpatient (CLI) | payer MEDICARE, OTHER ==
--- NOTE | 2024-02-08 13:22 | CT ---
synapse default - Radiology Report Patient: Susan Bai Ordering Physician: Unknown, Unknown ID: [id number] Phone, Pager: Phone: N/A Pager: N/A : 1970 Age/Gender: 53Y, F Primary Location: N/A Procedure: CT lumbar spine wo con Study Date: 01/20/2024 4:49:00 PM EXAMINATION TYPE: CT lumbar spine wo con DATE OF EXAM: 01/20/2024 COMPARISON: HISTORY: Pain. Unenhanced CT of the lumbar spine was performed. Bone and soft tissue window settings are submitted as well as coronal and sagittal reconstructions. L1-L2: Normal disc space height. No disc herniation protrusion or central stenosis. No facet joint arthropathy. No evidence for foraminal encroachment. L2-L3: Normal disc space height. No disc herniation protrusion or central stenosis. No facet joint arthropathy. No evidence for foraminal encroachment. L3-L4: Normal disc space height. No disc herniation protrusion or central stenosis. No facet joint arthropathy. No evidence for foraminal encroachment. L4-L5: Postoperative changes of fusion with intervertebral body spacer and laminectomy changes presen t. Streak artifact limits evaluation. Reticular screws are in place. Postoperative alignment is withi n normal limits. L5-S1: Mild degenerative disc space narrowing. No disc herniation protrusion or central stenosis. No facet joint arthropathy. No evidence for foraminal encroachment. No paraspinal masses are identified. Lumbar segments are free if fracture. Spinal canal is congenita lly diminutive in size. IMPRESSION: 1. Appropriate postoperative appearance at L4-5. 2. Mild degenerative disc space narrowing at L5-S1.
== END | disposition home or self-care (01) ==
LOC: RADCTMAIN 16:33
PROVIDERS: ATTEND Orthopaedic Surgery
DX: M51.37 Other intervertebral disc degeneration, lumbosacral region (principal); M48.061 Spinal stenosis, lumbar region without neurogenic claudication
CPT/HCPCS: 72131

== ENCOUNTER 2024-02-03 23:10 | Emergency (ER) | payer MEDICARE, OTHER ==
--- NOTE | 2024-02-04 00:17 | ED ---
Back Pain HPI - General Chief Complaint: Back Pain/Injury Stated Complaint: Back Pain Time Seen by Provider: 02/04/24 00:06 Source: patient, RN notes reviewed Mode of arrival: wheelchair Limitations: no limitations - History of Present Illness Initial Comments: This is a 54-year-old female who presents to the emergency department for back pain. Patient had surgery with Dr. Solis in September on L4-L5. States that she was sitting in a picnic table this evening and went to move and heard a pop/crack in her lower back around the same area she had surgery. She had extreme pain following this and she now has decreased sensation in her bilateral lower extremities and has not been able to walk. However her friend was able to help her into the car in order to get her here. She has not had any loss of bowel or bladder control. MD Complaint: back pain - Related Data Home Medications Medication Instructions Recorded Confirmed Omeprazole [PriLOSEC] 20 mg PO QAM 01/12/19 10/04/23 Levothyroxine Sodium [Synthroid] 150 mcg PO QAM 11/10/19 10/04/23 Empagliflozin [Jardiance] 25 mg PO QAM 12/11/20 10/04/23 Ergocalciferol (Vitamin D2) 1,250 mcg PO Q7D 07/14/21 10/04/23 [Drisdol (50,000 Iu)] Fenofibrate Nanocrystallized 160 mg PO QAM 08/03/21 10/04/23 [Fenofibrate] Dicyclomine [Bentyl] 20 mg PO QID PRN 08/25/21 10/04/23 Insulin Regular [humuLIN R] 80 units SQ AC-BRKFST 10/16/21 10/04/23 Prazosin HCl 2 mg PO HS 10/16/21 10/04/23 Venlafaxine HCl ER [Effexor XR] 150 mg PO DAILY 10/16/21 10/04/23 Furosemide [Lasix] 80 mg PO QAM 01/21/22 10/04/23 Magnesium Oxide 400 mg PO QAM 01/21/22 10/04/23 Meclizine HCl 25 mg PO BID PRN 01/21/22 10/04/23 Metoprolol Succinate [Metoprolol 25 mg PO QAM 01/21/22 10/04/23 Succinate ER] Aspirin [Adult Low Dose Aspirin EC] 81 mg PO QAM 12/16/22 10/04/23 Rosuvastatin Calcium 40 mg PO 12/16/22 10/04/23 lisinopriL 2.5 mg PO QAM 12/16/22 10/04/23 Albuterol Nebulized [Ventolin 1.25 mg INHALATION Q6H PRN 09/29/23 10/04/23 Nebulized (Accuneb)] Albuterol Sulfate [Ventolin HFA] 1 - 2 puff INHALATION Q6H PRN 09/29/23 10/04/23 Budesonide-Formot 160-4.5 Mcg 2 puff INHALATION BID 09/29/23 10/04/23 [Symbicort 160-4.5 Mcg Inhaler] Cariprazine HCl [Vraylar] 6 mg PO DAILY 09/29/23 10/04/23 Insulin Regular [humuLIN R] 40 units SQ 09/29/23 10/04/23 LORazepam [Ativan] 1 mg PO DAILY PRN 09/29/23 10/04/23 Ondansetron [Zofran] 4 mg PO Q8HR PRN 09/29/23 10/04/23 Potassium Chloride ER [K-Dur 20] 20 meq PO DAILY 09/29/23 10/04/23 Prazosin [Minipress] 5 mg PO QA 09/29/23 10/04/23 Tirzepatide [Mounjaro] 7.5 mg SQ 09/29/23 10/04/23 metFORMIN HCL [Glucophage] 1,000 mg PO QA 09/29/23 10/04/23 traMADol HCL 50 mg PO BID PRN 09/29/23 10/04/23 traZODone HCL 100 mg PO BID 09/29/23 10/04/23 Venlafaxine HCl ER [Effexor XR] 37.5 mg PO DAILY 10/05/23 10/05/23 Previous Rx's Medication Instructions Recorded Cyclobenzaprine [Flexeril] 5 mg PO TID PRN #40 tablet 10/06/23 HYDROcodone/APAP 7.5-325MG [Bro[place] 1 each PO Q4-6H PRN #42 tab 10/06/23 7.5] Sennosides/Docusate Sodium [Senna 1 each PO DAILY PRN #20 capsule 10/06/23 Plus 8.6-50 mg Softgel] Sulfamethox-Tmp 800-160Mg [Bactrim 1 tab PO Q12HR #10 tab 10/06/23 DS 800-160 mg] HYDROcodone/APAP 10-325MG [[place] 1 tab PO Q4HR PRN 3 Days #18 tab 02/04/24 10-325] Meloxicam [Mobic] 15 mg PO DAILY PRN #30 tab 02/04/24 methocarbamoL [Robaxin-750] 1,500 mg PO TID PRN #30 tab 02/04/24 Allergies Allergy/AdvReac Type Severity Reaction Status Date / Time bupropion [From Wellbutrin] Allergy Rash/Hives Verified 02/03/24 23:25 cephalexin [From Keflex] Allergy Rash/Hives Verified 02/03/24 23:25 propoxyphene Allergy Rash/Hives Verified 02/03/24 23:25 [From Darvocet-N] sertraline [From Zoloft] Allergy AGITATION Verified 02/03/24 23:25 Review of Systems ROS Statement: Those systems with pertinent positive or pertinent negative responses have been documented in the HPI. ROS Other: All systems not noted in ROS Statement are negative. Past Medical History Past Medical History: Diabetes Mellitus, GERD/Reflux, Hyperlipidemia, Hypertension, Thyroid Disorder Additional Past Medical History / Comment(s): IDDM, hx ventral hernia with surgery, bilateral leg/feet edema, frequent uti's, twisted small bowel with surgery, sepsis, HYPOKALEMIA, pancreatitis History of Any Multi-Drug Resistant Organisms: None Reported Past Surgical History: Bowel Resection, Section, Cholecystectomy, Hernia Repair, Hysterectomy, Joint Replacement, Orthopedic Surgery Additional Past Surgical History / Comment(s): bilat knees replaced,. thymus gland removal,. ventral hernia repair w/ mesh. COLONOSCOPY/EGD. Fusion L4/L5 with rods Past Anesthesia/Blood Transfusion Reactions: No Reported Reaction Additional Past Anesthesia/Blood Transfusion Reaction / Comment(s): no problems with prior blood transfusion in 1994 Past Psychological History: Anxiety, Depression, Panic Disorder, PTSD, Schizoaffective Disorder, Schizophrenia Smoking Status: Never smoker Past Alcohol Use History: None Reported Past Drug Use History: None Reported - Past Family History Mother Family Medical History: Cancer Additional Family Medical History / Comment(s): lung Father Family Medical History: Myocardial Infarction ([place]) Sister(s) Family Medical History: Cancer Additional Family Medical History / Comment(s): breast General Exam Limitations: no limitations General appearance: alert, in distress Head exam: Present: atraumatic, normocephalic, normal inspection Respiratory exam: Present: normal lung sounds bilaterally. Absent: respiratory distress, wheezes, rales, rhonchi, stridor Cardiovascular Exam: Present: regular rate, normal rhythm, normal heart sounds. Absent: systolic murmur, diastolic murmur, rubs, gallop, clicks Back exam: Present: other (Tenderness to palpation over the lower lumbar spine) Neurological exam: Present: alert, oriented X3, CN II-XII intact Psychiatric exam: Present: normal affect, normal mood Skin exam: Present: warm, dry, intact, normal color. Absent: rash Course Vital Signs 02/03/24 02/04/24 02/04/24 23:19 01:14 03:20 Temperature 97.9 F Pulse Rate 20 L 89 80 Respiratory 18 18 18 Rate Blood Pressure 103/72 110/70 110/70 O2 Sat by Pulse 97 97 97 Oximetry 02/04/24 04:32 Temperature 98.7 F Pulse Rate 94 Respiratory 16 Rate Blood Pressure 115/78 O2 Sat by Pulse 93 L Oximetry Medical Decision Making - Medical Decision Making This is a 53 year old female who presents to the emergency department for back pain. Was pt. sent in by a medical professional or institution? @ -No Did you speak to anyone other than the patient for history? @ -No Did you review nursing and triage notes? @ -Yes, and I agree, it is accurate with regards to the patient's symptoms. Were old charts reviewed? @ -No Differential Diagnosis? @ -Differential Back Pain: Strain, zoster, cauda equina syndrome, epidural abscess, vertebral osteomyelitis, discitis, fracture, subluxation, disc herniation, DJD, spinal stenosis, dissection, AAA, pancreatitis, peptic ulcer disease, pyelonephritis, kidney stone, this is not meant to be an all-inclusive list. EKG interpreted by me (3pts min.)? @ -Not obtained X-rays interpreted by me (1pt min.)? @ -Not obtained CT interpreted by me (1pt min.)? @ -CT scan of the lumbar spine obtained. My interpretation identifies no acute fractures. U/S interpreted by me (1pt. min.)? @ -Not obtained What testing was considered but not performed? (CT, X-rays, U/S, labs)? Why? @ -None What meds were considered but not given? Why? @ -None Did you discuss the management of the patient with other professionals? @ -No Did you reconcile home meds? @ -No Was smoking cessation discussed for >3mins.? @ -No Was critical care preformed (if so, how long)? @ -No Were there social determinants of health that impacted care today? How? (Homelessness, low income, unemployed, alcoholism, drug addiction, transportation, low edu. Level, literacy, decrease access to med. care, [facility], rehab)? @ -No Was there de-escalation of care discussed even if they declined? (Discuss DNR or withdrawal of care, Hospice)? @ -No What co-morbidities impacted this encounter? (DM, HTN, Smoking, COPD, CAD, Cancer, CVA, Hep., AIDS, mental health diagnosis, sleep apnea, morbid obesity)? @ -None Was patient admitted / discharged? @ -Discharged. CT scan of the lumbar spine obtained revealing no acute process. There is a stable appearance of L4-L5 posterior fusion without obvious severe central canal stenosis. Pain was managed in the emergency department and she was able to stand on her own. She was comfortable with discharge home at that point. Patient is fairly opioid tolerant and given the level of her pain and severity of her back problems, I was willing to give her a 3-day refill on Brook[place] which she is advised to take sparingly. Mobic and Robaxin prescribed as well for further symptomatic management. Advised she follow back up with Dr. Solis as well. Patient discharged home in stable condition. Case di scussed with ED attending Dr. Ellington. Return precautions reviewed in depth, the patient is instructed to return to the emergency department with any new, worsening, or concerning symptoms. Patient v erbalized understanding. Undiagnosed new problem with uncertain prognosis? @ -None Drug Therapy requiring intensive monitoring for toxicity (Heparin, Nitro, Insu sonam, Cardizem)? @ -None Were any procedures done? @ -None Diagnosis/symptom? @ -Lumbar strain and lumbar radiculopathy Acute, or Chronic, or Acute on Chronic? @ -Acute Uncomplicated (without systemic symptoms) or Complicated (systemic symptoms)? @ -Uncomplicated Side effects of treatment? @ -None Exacerbation, Progression, or Severe Exacerbation] @ -Not applicable Poses a threat to life or bodily function? @ -Yes, this is limiting her ability to ambulate - Radiology Data Radiology results: report reviewed, image reviewed Disposition Clinical Impression: Strain of lumbar region Disposition: HOME SELF-CARE Instructions (If sedation given, give patient instructions): Acute Low Back Pain (ED) Additional Instructions: Return to the emergency department with any new, worsening, or concerning symptoms. Take the Mobic once daily as needed for pain relief. Take the Robaxin as 1 to 2 tablets up to 3-4 times daily. Take the Brookline sparingly when your pain is the most severe. Be aware that both the Brook[place] and Robaxin may make you drowsy. Continue to use lidocaine patches as well. Follow-up with Dr. Solis. Prescriptions: Meloxicam [Mobic] 15 mg PO DAILY PRN #30 tab PRN Reason: Pain HYDROcodone/APAP 10-325MG [Bro[place]line 10-325] 1 tab PO Q4HR PRN 3 Days #18 tab PRN Reason: Pain methocarbamoL [Robaxin-750] 1,500 mg PO TID PRN #30 tab PRN Reason: Pain Is patient prescribed a controlled substance at d/c from ED?: Yes When asked, does pt state using other controlled substances?: No If prescribed controlled substance>3 days was MAPS reviewed?: Prescribed <3 Days Referrals: Aundrea Torres MD [Primary Care Provider] - 1-2 days Demario Solis DO [Doctor of Osteopathic Medicine] - 1-2 days Time of Disposition: 04:23
[2024-02-04] MEDS: HYDROmorphone 1 MG/ML 1 ML SYRINGE IVP STA ×2 (00:37→03:37)
[2024-02-04] MEDS: KETOROLAC 15 MG/ML 1 ML VIAL IVP STA (00:37)
[2024-02-04] MEDS: CYCLOBENZAPRINE 10 MG TAB PO STA (00:40)
[2024-02-04] MEDS: DEXAMETHASONE SOD PHOSPHATE 10 MG/ML 1 ML VIAL IVP STA (00:41)
--- NOTE | 2024-02-04 03:46 | CT ---
EXAM: CT Lumbar Spine Without Intravenous Contrast CLINICAL HISTORY: ITS.REASON CT Reason: Low back pain, lower extremity numbness TECHNIQUE: Axial computed tomography images of the lumbar spine without intravenous contrast. CTDI is 58.4 mGy and DLP is 1784.4 mGy-cm. This CT exam was performed using one or more of the following dose reduction techniques: automated exposure control, adjustment of the mA and/or kV according to patient size, and/or use of iterative reconstruction technique. COMPARISON: CT Lumbar Spine dated 10/05/23 FINDINGS: Vertebrae: Unremarkable. No acute fracture. Discs/spinal canal/neural foramina: Stable appearance of L4-L5 posterior fusion. No obvious severe canal stenosis although limited evaluation due to artifact from hardware. Soft tissues: Unremarkable. IMPRESSION: Stable appearance of L4-L5 posterior fusion. No obvious severe canal stenosis although limited evaluation due to artifact from hardware.
[2024-02-04] MEDS: traMADol 50 MG STARTER PACK 3 TAB BTL PO STA (04:31)
[2024-02-04 04:35] VITALS: BP 115/78; PULSE 94; RESP 16; TEMP 98.7
== END 2024-02-04 04:38 | disposition home or self-care (01) ==
LOC: EC 23:10
CPT/HCPCS: 72131; 96374; 96375; 96376; 99284

== ENCOUNTER 2024-03-29 05:32 | Day surgery (SDC) | payer MEDICARE, OTHER ==
[2024-03-28 14:00] VITALS: BMI 42.7
[2024-03-29] MEDS: SODIUM CHLORIDE 0.9% 1,000 ML IV ONE (06:15)
[2024-03-29 06:26] VITALS: RESP 16; TEMP 97.2
[2024-03-29] MEDS ORDERED: ATORVASTATIN 80 MG TAB PO STA (07:27)
[2024-03-29] MEDS ORDERED: ALPRAZolam 0.25 MG TAB PO PRN (07:27)
[2024-03-29] MEDS ORDERED: ALPRAZolam 0.5 MG TAB PO PRN (07:27)
[2024-03-29] MEDS ORDERED: NITROGLYCERIN SL TABS 0.4 MG TAB SUBLINGUAL PRN (07:27)
[2024-03-29] MEDS ORDERED: ASPIRIN 325 MG TAB PO STA (07:27)
[2024-03-29] MEDS ORDERED: SODIUM CHLORIDE 0.9% 1,000 ML in EMPTY BAG 1 BAG IV SCH (07:30)
[2024-03-29 07:36] LABS: Basophils # (A) 0.1 k/uL (0-0.2); Basophils % (A) 1 %; Eosinophils # (A) 0.2 k/uL (0-0.7); Eosinophils % (A) 2 %; HCT 47.1 % (34.0-46.0); HGB 16.3 gm/dL (11.4-16.0); Lymphocytes # (A) 3.2 k/uL (1.0-4.8); Lymphocytes % (A) 29 %; MCH 30.5 pg (25.0-35.0); MCHC 34.6 g/dL (31.0-37.0); Mean Platelet Volume 9.6; Monocytes # (A) 0.4 k/uL (0-1.0); Monocytes % (A) 4 %; Neutrophils # (A) 6.9 k/uL (1.3-7.7); Neutrophils % (A) 63 %; Platelet Count 279 k/uL (150-450); RBC 5.35 m/uL (3.80-5.40); RDW 13.7 % (11.5-15.5); WBC 10.9 k/uL (3.8-10.6)
[2024-03-29] MEDS: fentaNYL (PF) 50 MCG/ML 2 ML AMP IVP ONE (07:39)
[2024-03-29] MEDS: MIDAZOLAM 2 MG/2 ML VIAL IVP ONE (07:40)
[2024-03-29] MEDS: LIDOCAINE 1% INJ 10MG/ML (20 ML MDV) SQ ONE (07:41)
[2024-03-29] MEDS: VERAPAMIL SYRINGE (5 MG/10 ML) INTRAARTER ONE (07:43)
[2024-03-29] MEDS: HEPARIN SODIUM 1,000 UN/ML (10ML VL) IV ONE (07:46)
[2024-03-29] MEDS: IOPAMIDOL-370 200ML BTL INJ ONE (07:54)
[2024-03-29] MEDS: HEPARIN SODIUM,PORCINE 10,000 UNIT in SODIUM CHLORIDE 0.9% 1,000 ML IRRIGATION ONE (07:55)
[2024-03-29] MEDS: HEPARIN SODIUM,PORCINE (1 ML) 2,500 UNIT in SODIUM CHLORIDE 0.9% 250 ML IRRIGATION ONE (07:55)
--- NOTE | 2024-03-29 13:05 | P.CARDCATH ---
Description of Procedure: PROCEDURES PERFORMED: Left heart catheterization, bilateral coronary angiography, ultrasound guided arterial access INDICATION: chest pain, inability to perform adequate stress testing, unstable angina-type symptoms CONSENT:I have discussed the risks, benefits and alternative therapies for the above-mentioned procedure and for both sedation/analgesia as well as necessary blood product administration, if indicated, as they pertain to this patient. The patient has indicated understanding and acceptance of the risks and procedures discussed. PROCEDURE: After the risks, benefits and alternatives of the above mentioned procedure explained in detail with the patient, informed consent was obtained. Patient was taken to the catheterization lab and prepped and draped in usual fashion. Ultrasound guidance was used to assess for arterial access. 1% lidocaine was used to anesthetize the right radial artery. A 6-Malaysian sheath w as placed in the right radial artery using modified Seldinger technique and ultrasound guidance. Left coronary angiography was performed with a 5-Malaysian JL 3.5 catheter and right coronary angiography was performed with a 5-Malaysian FR5 catheter in various views. A 5-Malaysian FR5 catheter was inserted into the left ventricle and pressure measurements were obtained. The right radial sheath was removed and a TR band was placed with hemostasis achieved. The patient tolerated the procedure well. Patient was transported back to the post catheterization holding area in stable condition. Conscious Sedation: Patient was monitored under the direct supervision of myself for conscious sedation using Versed and fentanyl for a total duration of 13 minutes HEMODYNAMICS: aorta: 135/75 LV: 134/8, LVEDP 16 SELECTIVE CORONARY ARTERIOGRAPHY: LEFT MAIN: The left main is a large caliber vessel which bifurcates into the LAD and circumflex. There is no significant stenosis. LEFT ANTERIOR DESCENDING CORONARY ARTERY: LAD is a large caliber vessel which wraps around to the apex. There is no significant stenosis. LEFT CIRCUMFLEX CORONARY ARTERY: Left circumflex is a moderate caliber vessel without significant stenosis. RIGHT CORONARY ARTERY: The right coronary artery is a large caliber vessel which gives off a PDA and PLV branch and is the dominant vessel. There is no significant stenosis. FINAL IMPRESSION: 1. Normal coronary arteries as described above. 2. Mildly elevated left sided filling pressures PLAN: 1. Aggressive risk factor modification per most recent ACC/AHA guidelines. 2. Follow-up in the office in 1-2 weeks.
[2024-03-29 13:07] VITALS: BP 157/86; PULSE 114
[2024-03-30] MEDS ORDERED: HEPARIN SODIUM,PORCINE (1 ML) 2,500 UNIT in SODIUM CHLORIDE 0.9% 250 ML IRRIGATION PRN (07:00)
[2024-03-30] MEDS ORDERED: HEPARIN SODIUM,PORCINE 10,000 UNIT in SODIUM CHLORIDE 0.9% 1,000 ML IRRIGATION PRN (07:00)
== END 2024-03-29 12:06 | disposition home or self-care (01) ==
LOC: CATHCVL 05:32
PROVIDERS: ATTEND Internal Medicine
DX: I20.0 Unstable angina (principal); I10 Essential (primary) hypertension; E11.9 Type 2 diabetes mellitus without complications; E78.00 Pure hypercholesterolemia, unspecified; R42 Dizziness and giddiness; G89.4 Chronic pain syndrome; R00.2 Palpitations; E66.01 Morbid (severe) obesity due to excess calories; Z79.85 Long-term (current) use of injectable non-insulin antidiabetic drugs; Z79.84 Long term (current) use of oral hypoglycemic drugs; Z79.4 Long term (current) use of insulin; Z79.899 Other long term (current) drug therapy; Z88.6 Allergy status to analgesic agent; Z88.8 Allergy status to other drugs, medicaments and biological substances; Z82.49 Family history of ischemic heart disease and other diseases of the circulatory system
CPT/HCPCS: 93458; 85025; C1769; C1894; J2250; J1644 ×3; J2003; J3010; Q9967

== ENCOUNTER → 2024-04-10 | Outpatient (CLI) | payer MEDICARE, OTHER ==
--- NOTE | 2024-04-16 18:10 | MR ---
EXAMINATION TYPE: MR lumbar spine wo con DATE OF EXAM: 04/10/2024 2:38 PM COMPARISON: None. CLINICAL INDICATION: Female, 53 years old with history of M43.26 FUSION OF SPINE, LUMBAR REGION, LBP with BLE radiculopathy, surgery -24, pt fell 1 week after surgery. TECHNIQUE: Multiplanar, multisequence images of the lumbar spine were acquired. IV Contrast: mL (None, if empty) FINDINGS: Cord ends at the L1. Pedicle screws and disc spacers present L4-5. Magnetic susceptibility artifact is present causing limitation this level. L5-S1: No focal disc herniation or significant disc bulge. No spinal canal stenosis. Neural foramen are patent. Some facet hypertrophy is present L4-L5: Mild left paracentral disc bulge may be present. This could be artifact. Facet hypertrophy has posterior lateral thecal sac compression. Some canal narrowing may be present. This is stable from c omparison L3-L4: No focal disc herniation or significant disc bulge. No spinal canal stenosis. Neural foramen are patent. Facet hypertrophy is posterior lateral thecal sac compression L2-L3: No focal disc herniation or significant disc bulge. No spinal canal stenosis. Neural foramen are patent. L1-L2: No focal disc herniation or significant disc bulge. No spinal canal stenosis. Neural foramen are patent. T12-L1: No focal disc herniation or significant disc bulge. No spinal canal stenosis. Neural forame n are patent. IMPRESSION: 1. Postsurgical changes L4-5 susceptibility artifact. Some mild stable canal narrowing through this l evel may be present. 2. Facet hypertrophy present L3-4 through L5-S1 with posterior lateral thecal sac compression [facility], , 04/16/2024 6:07 PM
== END | disposition home or self-care (01) ==
LOC: RADMRIMAIN 12:35
PROVIDERS: ATTEND Orthopaedic Surgery
DX: M47.26 Other spondylosis with radiculopathy, lumbar region (principal); M43.26 Fusion of spine, lumbar region; Z98.890 Other specified postprocedural states
CPT/HCPCS: 72148

== ENCOUNTER 2024-04-15 12:28 | Emergency (ER) | payer MEDICARE, OTHER ==
[2024-04-15 12:49] VITALS: TEMP 98.1
[2024-04-15 12:52] LABS: Glucose,Whole Blood 199 mg/dL (70-110)
[2024-04-15] MEDS: SODIUM CHLORIDE 0.9% 500 ML 500 ML IV STA (13:22)
--- NOTE | 2024-04-15 13:37 | ED ---
General Adult HPI - General Chief complaint: Neuro Symptoms/Deficit Stated complaint: Confusion, dizziness Time Seen by Provider: 04/15/24 12:57 Source: patient, RN notes reviewed, old records reviewed Mode of arrival: wheelchair Limitations: no limitations - History of Present Illness Initial comments: 53-year-old female with chief complaint of dizziness, lightheadedness. Patient states symptoms began yesterday evening. She states that she has had this issue before related to Lasix and hypokalemia. Patient is currently on 80 mg of Lasix. She does report weight loss over the past 1 month. She has been eating and drinking. No vomiting. No focal numbness or weakness. No chest pain. - Related Data Home Medications Medication Instructions Recorded Confirmed Levothyroxine Sodium [Synthroid] 150 mcg PO DAILY 11/10/19 04/15/24 Ergocalciferol (Vitamin D2) 1,250 mcg PO MOTH 07/14/21 04/15/24 [Drisdol (50,000 Iu)] Fenofibrate Nanocrystallized 160 mg PO DAILY 08/03/21 04/15/24 [Fenofibrate] Insulin Regular [humuLIN R] 80 units SQ AC-BRKFST 10/16/21 04/15/24 Metoprolol Succinate [Metoprolol 25 mg PO DAILY 01/21/22 04/15/24 Succinate ER] lisinopriL 2.5 mg PO DAILY 12/16/22 04/15/24 Cariprazine HCl [Vraylar] 6 mg PO HS 09/29/23 04/15/24 Insulin Regular [humuLIN R] 40 units SQ AC-SUPPER 09/29/23 04/15/24 LORazepam [Ativan] 1 mg PO DAILY PRN 09/29/23 04/15/24 Potassium Chloride ER [K-Dur 20] 20 meq PO DAILY 09/29/23 04/15/24 Prazosin [Minipress] 15 mg PO HS 09/29/23 04/15/24 traMADol HCL 50 - 100 mg PO Q6H PRN 09/29/23 04/15/24 Venlafaxine HCl ER [Effexor XR] 37.5 mg PO DAILY 10/05/23 04/15/24 Tirzepatide [Mounjaro] 10 mg SQ TU 03/28/24 04/15/24 Venlafaxine HCl [Effexor XR] 150 mg PO DAILY 03/28/24 04/15/24 Celecoxib [CeleBREX] 200 mg PO BID 04/15/24 04/15/24 Cyclobenzaprine [Flexeril] 10 mg PO TID PRN 04/15/24 04/15/24 Dicyclomine [Bentyl] 10 mg PO QID PRN 04/15/24 04/15/24 Furosemide [Lasix] 80 mg PO DAILY 04/15/24 04/15/24 Nitroglycerin Sl Tabs [Nitrostat] 0.4 mg SUBLINGUAL Q5M PRN 04/15/24 04/15/24 Ondansetron Odt [Zofran Odt] 4 mg PO Q8HR PRN 04/15/24 04/15/24 QUEtiapine FUMARATE [SEROquel] 200 mg PO HS 04/15/24 04/15/24 QUEtiapine [SEROquel] 100 mg PO HS 04/15/24 04/15/24 busPIRone HCL 10 mg PO TID 04/15/24 04/15/24 Allergies Allergy/AdvReac Type Severity Reaction Status Date / Time bupropion [From Wellbutrin] Allergy Rash/Hives Verified 04/15/24 15:53 cephalexin [From Keflex] Allergy Rash/Hives Verified 04/15/24 15:53 propoxyphene Allergy Rash/Hives Verified 04/15/24 15:53 [From Darvocet-N] sertraline [From Zoloft] Allergy AGITATION Verified 04/15/24 15:53 Review of Systems ROS Statement: Those systems with pertinent positive or pertinent negative responses have been documented in the HPI. ROS Other: All systems not noted in ROS Statement are negative. Past Medical History Past Medical History: Asthma, Diabetes Mellitus, GERD/Reflux, Hyperlipidemia, Hypertension, Musculoskeletal Disorder, Thyroid Disorder Additional Past Medical History / Comment(s): IDDM, bilateral leg/feet edema, frequent UTI's, hx sepsis, hx hypokalemia, hx pancreatitis, tachycardia/frequent PVC's, IBS, migraines, vertigo, Degenerative Disc Disease. History of Any Multi-Drug Resistant Organisms: None Reported Past Surgical History: Back Surgery, Bowel Resection, Section, Cholecystectomy, Hernia Repair, Hysterectomy, Joint Replacement Additional Past Surgical History / Comment(s): Bilateral knee replacement, thymus gland removal, ventral hernia repair with mesh, surgery for twisted bowel, COLONOSCOPY/EGD, fusion L4-L5 with rods. Past Anesthesia/Blood Transfusion Reactions: No Reported Reaction Additional Past Anesthesia/Blood Transfusion Reaction / Comment(s): No problems with prior blood transfusion in 1994. Past Psychological History: Anxiety, Depression, Panic Disorder, PTSD, Schizoaffective Disorder, Schizophrenia Smoking Status: Never smoker Past Alcohol Use History: None Reported Past Drug Use History: None Reported - Past Family History Mother Family Medical History: Cancer Additional Family Medical History / Comment(s): Lung cancer. Father Family Medical History: Myocardial Infarction ([place]) Sister(s) Family Medical History: Cancer Additional Family Medical History / Comment(s): Breast cancer. General Exam Limitations: no limitations General appearance: alert, in no apparent distress Head exam: Present: atraumatic, normocephalic Eye exam: Present: normal appearance, PERRL ENT exam: Present: mucous membranes dry Neck exam: Present: normal inspection. Absent: tenderness, meningismus Respiratory exam: Present: normal lung sounds bilaterally. Absent: respiratory distress, wheezes Cardiovascular Exam: Present: normal rhythm, tachycardia GI/Abdominal exam: Present: soft. Absent: distended Extremities exam: Present: normal inspection. Absent: pedal edema, calf tenderness Neurological exam: Present: alert, oriented X3, CN II-XII intact. Absent: motor sensory deficit Psychiatric exam: Present: normal affect, normal mood Skin exam: Present: warm, dry, intact. Absent: cyanosis, diaphoretic Course Vital Signs 04/15/24 04/15/24 04/15/24 12:45 14:25 14:26 Temperature 98.1 F Pulse Rate 110 H Pulse Rate [ 91 107 H Pulse Oximetery ] Respiratory 18 16 18 Rate Blood Pressure 123/85 Blood Pressure 136/90 [Right Arm Sitting] Blood Pressure [Right Arm Standing] Blood Pressure 110/71 [Right Arm Supine] O2 Sat by Pulse 97 97 95 Oximetry 04/15/24 14:29 Temperature Pulse Rate Pulse Rate [ 116 H Pulse Oximetery ] Respiratory 18 Rate Blood Pressure Blood Pressure [Right Arm Sitting] Blood Pressure 114/79 [Right Arm Standing] Blood Pressure [Right Arm Supine] O2 Sat by Pulse 97 Oximetry Medical Decision Making - Medical Decision Making Was pt. sent in by a medical professional or institution ([facility], [facility], urgent care, hospital, or fpc...) When possible be specific @ -No Did you speak to anyone other than the patient for history (EMS, parent, family, police, friend...)? What history was obtained from this source @ -No Did you review nursing and triage notes (agree or disagree)? Why? @ -I reviewed and agree with nursing and triage notes Were old charts reviewed (outside hosp., previous admission, EMS record, old EKG, old radiological studies, urgent care reports/EKG's, fpc records)? Report findings @ -No old charts were reviewed Differential Weakness: Hypoglycemia, shock, sepsis, hyponatremia, anemia, infection, [place], ETOH, adverse medicine reaction, overdose, stroke, this is not meant to be an all-inclusive list. EKG interpreted by me (3pts min.). @Sinus tachycardia rate of 104, GA interval 155, QRS duration 94, QTc [address] segment elevation. X-rays interpreted by me (1pt min.). @ -None done CT interpreted by me (1pt min.). @ -None done U/S interpreted by me (1pt. min.). @ -None done What testing was considered but not performed or refused? (CT, X-rays, U/S, labs)? Why? @ -None What meds were considered but not given or refused? Why? @ -None Did you discuss the management of the patient with other professionals (professionals i.e. [facility], [facility], lab, RT, psych nurse, elementary school social worker, fountain attendant, teacher, national service officer, pillowcase cleaner)? Give summary @ -No Was smoking cessation discussed for >3mins.? @ -No Was critical care preformed (if so, how long)? @ -No Were there social determinants of health that impacted care today? How? (Homelessness, low income, unemployed, alcoholism, drug addiction, transportation, low edu. Level, literacy, decrease access to med. care, skilled nursing, rehab)? @ -No Was there de-escalation of care discussed even if they declined (Discuss DNR or withdrawal of care, Hospice)? DNR status @ -No What co-morbidities impacted this encounter? (DM, HTN, Smoking, COPD, CAD, Cancer, CVA, ARF, Chemo, Hep., AIDS, mental health diagnosis, sleep apnea, morbid obesity)? @ -DM, peripheral edema Was patient admitted / discharged? Hospital course, mention meds given and route, prescriptions, significant lab abnormalities, going to OR and other pertinent info. @ -6-year-old female with lightheadedness. Patient is currently on 80 mg of Lasix and was concerned about electrolyte abnormalities. She has a mild hypomagnesemia but otherwise normal electrolytes. She is orthostatic positive2 in the emergency department which does respond to IV fluids. She feels better on reevaluation. Urinalysis shows possibility of infection but the patient has no symptoms whatsoever. Will monitor for symptoms. She will follow-up with her primary care provider. She will reduce her Lasix dose for the next several days. Undiagnosed new problem with uncertain prognosis? @ -No Drug Therapy requiring intensive monitoring for toxicity (Heparin, Nitro, Insulin, Cardizem)? @ -No Were any procedures done? @ -No Diagnosis/symptom? @ -Dehydration Acute, or Chronic, or Acute on Chronic? @ -Acute Uncomplicated (without systemic symptoms) or Complicated (systemic symptoms)? @ -Default Side effects of treatment? @ -No Exacerbation, Progression, or Severe Exacerbation? @ -No Poses a threat to life or bodily function? How? (Chest pain, [place], [place], pneumonia, PE, COPD, DKA, ARF, appy, cholecystitis, CVA, Diverticulitis, Homicidal, Suicidal, threat to staff... and all critical care pts) @ -Low risk at this time - Lab Data Result diagrams: 04/15/24 13:13 04/15/24 13:13 Lab Results 04/15/24 04/15/24 04/15/24 Range/Units 12:51 13:13 13:13 WBC 9.7 (3.8-10.6) k/uL RBC 4.71 (3.80-5.40) m/uL Hgb 14.2 (11.4-16.0) gm/dL Hct 42.0 (34.0-46.0) % MCV 89.1 (80.0-100.0) fL MCH 30.1 (25.0-35.0) pg MCHC 33.8 (31.0-37.0) g/dL RDW 13.6 (11.5-15.5) % Plt Count 255 (150-450) k/uL MPV 9.2 Neutrophils % 61 % Lymphocytes % 30 % Monocytes % 4 % Eosinophils % 3 % Basophils % 1 % Neutrophils # 5.9 (1.3-7.7) k/uL Lymphocytes # 2.9 (1.0-4.8) k/uL Monocytes # 0.4 (0-1.0) k/uL Eosinophils # 0.2 (0-0.7) k/uL Basophils # 0.1 (0-0.2) k/uL PT 9.7 L (10.0-12.5) sec INR 0.9 (<1.2) APTT 24.1 (22.0-30.0) sec Sodium (137-145) mmol/L Potassium (3.5-5.1) mmol/L Chloride (98-107) mmol/L Carbon Dioxide (22-30) mmol/L Anion Gap mmol/L BUN (7-17) mg/dL Creatinine (0.52-1.04) mg/dL Est GFR (CKD-EPI)AfAm (>60 ml/min/1.73 sqM) Est GFR (CKD-EPI)NonAf (>60 ml/min/1.73 sqM) Glucose (74-99) mg/dL POC Glucose (mg/dL) 199 H (70-110) mg/dL POC Glu Public Health Director ID Ellison Chastity Calcium (8.4-10.2) mg/dL Magnesium (1.6-2.3) mg/dL Total Bilirubin (0.2-1.3) mg/dL AST (14-36) U/L ALT (4-34) U/L Alkaline Phosphatase (38-126) U/L Troponin I (0.000-0.034) ng/mL Total Protein (6.3-8.2) g/dL Albumin (3.5-5.0) g/dL Urine Color Urine Appearance (Clear) Urine pH (5.0-8.0) Ur Specific [place] (1.001-1.035) Urine Protein (Negative) Urine Glucose (UA) (Negative) Urine Ketones (Negative) Urine Blood (Negative) Urine Nitrite (Negative) Urine Bilirubin (Negative) Urine Urobilinogen (<2.0) mg/dL Ur Leukocyte Esterase (Negative) Urine RBC (0-5) /hpf Urine WBC (0-5) /hpf Ur Squamous Epith Cells (0-4) /hpf Urine Bacteria (None) /hpf Urine Mucus (None) /hpf 04/15/24 04/15/24 04/15/24 Range/Units 13:13 13:13 16:16 WBC (3.8-10.6) k/uL RBC (3.80-5.40) m/uL Hgb (11.4-16.0) gm/dL Hct (34.0-46.0) % MCV (80.0-100.0) fL MCH (25.0-35.0) pg MCHC (31.0-37.0) g/dL RDW (11.5-15.5) % Plt Count (150-450) k/uL MPV Neutrophils % % Lymphocytes % % Monocytes % % Eosinophils % % Basophils % % Neutrophils # (1.3-7.7) k/uL Lymphocytes # (1.0-4.8) k/uL Monocytes # (0-1.0) k/uL Eosinophils # (0-0.7) k/uL Basophils # (0-0.2) k/uL PT (10.0-12.5) sec INR (<1.2) APTT (22.0-30.0) sec Sodium 136 L (137-145) mmol/L Potassium 3.5 (3.5-5.1) mmol/L Chloride 99 (98-107) mmol/L Carbon Dioxide 30 (22-30) mmol/L Anion Gap 7 mmol/L BUN 17 (7-17) mg/dL Creatinine 0.63 (0.52-1.04) mg/dL Est GFR (CKD-EPI)AfAm >90 (>60 ml/min/1.73 sqM) Est GFR (CKD-EPI)NonAf >90 (>60 ml/min/1.73 sqM) Glucose 188 H (74-99) mg/dL POC Glucose (mg/dL) (70-110) mg/dL POC Glu Public Health Director ID Calcium 8.9 (8.4-10.2) mg/dL Magnesium 1.5 L (1.6-2.3) mg/dL Total Bilirubin 0.5 (0.2-1.3) mg/dL AST 39 H (14-36) U/L ALT 24 (4-34) U/L Alkaline Phosphatase 189 H (38-126) U/L Troponin I <0.012 (0.000-0.034) ng/mL Total Protein 7.3 (6.3-8.2) g/dL Albumin 4.0 (3.5-5.0) g/dL Urine Color Light Yellow Urine Appearance Cloudy H (Clear) Urine pH 5.0 (5.0-8.0) Ur Specific [place] 1.027 (1.001-1.035) Urine Protein Negative (Negative) Urine Glucose (UA) 4+ H (Negative) Urine Ketones Negative (Negative) Urine Blood Trace H (Negative) Urine Nitrite Negative (Negative) Urine Bilirubin Negative (Negative) Urine Urobilinogen <2.0 (<2.0) mg/dL Ur Leukocyte Esterase Large H (Negative) Urine RBC 10 H (0-5) /hpf Urine WBC 27 H (0-5) /hpf Ur Squamous Epith Cells 6 H (0-4) /hpf Urine Bacteria Rare H (None) /hpf Urine Mucus Occasional H (None) /hpf Disposition Clinical Impression: Hypomagnesemia, Dehydration Disposition: HOME SELF-CARE Condition: Fair Instructions (If sedation given, give patient instructions): Dehydration (ED) Additional Instructions: Please reduce your Lasix dose for the next several days and follow closely with your primary care provider. Please return to the emergency department with any worsening or changing symptoms. Is patient prescribed a controlled substance at d/c from ED?: No Referrals: Aundrea Torres MD [Primary Care Provider] - 1-2 days Time of Disposition: 16:42
[2024-04-15 14:01] LABS: Basophils # (A) 0.1 k/uL (0-0.2); Basophils % (A) 1 %; Eosinophils # (A) 0.2 k/uL (0-0.7); Eosinophils % (A) 3 %; HGB 14.2 gm/dL (11.4-16.0); Lymphocytes # (A) 2.9 k/uL (1.0-4.8); Lymphocytes % (A) 30 %; MCH 30.1 pg (25.0-35.0); MCHC 33.8 g/dL (31.0-37.0); MCV 89.1 fL (80.0-100.0); Mean Platelet Volume 9.2; Monocytes # (A) 0.4 k/uL (0-1.0); Monocytes % (A) 4 %; Neutrophils # (A) 5.9 k/uL (1.3-7.7); Neutrophils % (A) 61 %; Platelet Count 255 k/uL (150-450); RBC 4.71 m/uL (3.80-5.40); RDW 13.6 % (11.5-15.5); WBC 9.7 k/uL (3.8-10.6)
[2024-04-15 14:10] LABS: ALT 24 U/L (4-34); AST 39 U/L (14-36); African American GFR (CKD) >90 (>60 ml/min/1.73 sqM); Alkaline Phosphatase 189 U/L (38-126); Anion Gap 7 mmol/L; Blood Urea Nitrogen 17 mg/dL (7-17); Calcium 8.9 mg/dL (8.4-10.2); Carbon Dioxide 30 mmol/L (22-30); Chloride 99 mmol/L (98-107); Glucose 188 mg/dL (74-99); Magnesium 1.5 mg/dL (1.6-2.3); Non-African American GFR(CKD) >90 (>60 ml/min/1.73 sqM); Potassium 3.5 mmol/L (3.5-5.1); Sodium 136 mmol/L (137-145); Total Bilirubin 0.5 mg/dL (0.2-1.3); Total Protein 7.3 g/dL (6.3-8.2)
[2024-04-15 14:16] LABS: INR 0.9 (<1.2); Partial Thromboplastin Time 24.1 sec (22.0-30.0); Prothrombin Time 9.7 sec (10.0-12.5)
[2024-04-15 14:29] VITALS: PULSE 116
[2024-04-15] MEDS: MAGNESIUM SULFATE-D5W PMX 1 GM in DEXTROSE/WATER 1 100ML.BAG IVPB ONE (15:38)
[2024-04-15] MEDS: SODIUM CHLORIDE 0.9% 500 ML 500 ML IV ONE (15:38)
[2024-04-15 16:29] LABS: Appearance,Urine Cloudy (Clear); Bacteria,Urine Rare /hpf; Bilirubin,Urine Negative (Negative); Blood,Urine Trace (Negative); Color,Urine Light Yellow; Glucose,Urine (UA) 4+ (Negative); Ketones,Urine Negative (Negative); Leukocyte Esterase,Urine Large (Negative); Mucus,Urine Occasional /hpf; Nitrite,Urine Negative (Negative); Protein,Urine Negative (Negative); RBC,Urine 10 /hpf (0-5); Specific Gravity,Urine 1.027 (1.001-1.035); Squamous Epithelial Cell,Urine 6 /hpf (0-4); Urobilinogen,Urine <2.0 mg/dL (<2.0); WBC,Urine 27 /hpf (0-5)
[2024-04-15 17:00] VITALS: BP 116/84; RESP 20
== END 2024-04-15 17:00 | disposition home or self-care (01) ==
LOC: EC 12:28
DX: E83.42 Hypomagnesemia (principal); E86.0 Dehydration; E11.9 Type 2 diabetes mellitus without complications; R60.0 Localized edema; Z88.1 Allergy status to other antibiotic agents; Z88.8 Allergy status to other drugs, medicaments and biological substances
CPT/HCPCS: 96365; 96361 ×2; 99285; 96366; 36415; 93005; 80053; 83735; 84484; 85025; 85610; 85730; 81001; J3475; 99283

== ENCOUNTER → 2024-06-21 | Outpatient (CLI) | payer MEDICARE, OTHER ==
[2024-06-21 08:51] VITALS: BP 112/77; PULSE 87; RESP 18; TEMP 97.9
--- NOTE | 2024-06-21 16:16 | P.PAINPG ---
PQRS Measure Charge Sheet Comment: A 54 yr old female with a history of severe and chronic LBP x 3 yr secondary to L4-L5 posterolateral interbody/ decompression w cage presents today for LBP. Pain level is provoked at 6 /10 in intensity, constant, predominantly axial, localized in the lumbar spine, sharp in character w occasional shooting towards the hips and BLEs. Pain is provoked by walking/ standing for periods > 15 min. Pain is alleviated with PT x 6 wks in Jul 2022, heat/ ice, meds, use of a walker for ambulatory assistance, repositioning and rest. Oswestry axial pain score of 27. Interventional pain procedures completed include MONICA L4-L5 x1, BL MBB L3-L5 x1 (2022) Patient is currently on Percocet Patient denies any side effects of the medication(s), denies excessive drowsiness or sleepiness, denies suicidal ideation and reports that the current pain medication is helping to control the pain and improve activities of daily living. Patient denies any motor or sensory deficits. Patient denies any fever or night sweats, denies any change in the bowel movements or urination. Physical Examination: -Constitutional: Cooperative. Not in acute distress . - Neurologic: Cranial nerve II to XII intact. No focal neurological deficits. - Psychatric: Alert & oriented x 3. Matching mood & appropriate affect. Judgment and insight intact. - Musculoskeletal: Cervical spine: Muscle bulk/ tone/ strength in the bilateral upper extremities normal Vertebral body tenderness to palpation over Spurling test positive Distraction test positive Facet loading test positive TTP Thoracic spine Muscle bulk / tone/ strength in the bilateral paraspinal muscles normal Vertebral body tender to palpation over Facet loading test positive TTP Lumbar spine: Motor bulk/ tone/ strength lower extremities , thigh and legs : 5/5 Deep tendon reflexes : Normal Knee Jerk. Normal Ankle Jerk . Vertebral body tenderness to palpation over Lumbar Facet Loading Test positive over BL L3-L4. Adjusted out of those days it is probably not bad things facets Straight Leg Raise: positive at 30 degrees right side/ left side Gaenslen's Test positive Sacral spine : Severe tenderness over the Sacroiliac joint: right side / left side Range of motion: Flexion of the lumbar spine <60 degrees Range of motion: Extension of the lumbar spine <20 degrees Gaenslen's Test positive right side / left side Sharita test: positive right side / left side Thigh Thrust Test positive right side / left side Sacral Thrust Test positive right side / left side Assessment and plan: Chronic LBP secondary to L4-L5 posterolateral interbody/ decompression w cage Recommendation of BL MBB L3-L4 #1. Risks, benefits of procedure discussed and pt verbalized understanding. Protocol for discontinuation/ continuation of medications armen procedure discussed. Minimal anesthesia including Fentanyl and Versed if clinically indicated. All questions answered. I have spent less than 30 minutes on patient care today. Dr Agustin was available by phone for the evaluation of this patient. The time was used to review the medical records including relevant urine studies and Prescription history (MAPs), review of the available imaging, evaluation and examination of the patient, coordination of care with the medical staff and if applicable referring physicians, as well as creation of the medical record PQRS Narrative: Smoking Status Never smoker Home Medications: Ambulatory Orders Levothyroxine Sodium [Synthroid] 150 mcg PO DAILY 11/10/19 Ergocalciferol (Vitamin D2) [Drisdol (50,000 Iu)] 1,250 mcg PO MOTH 07/14/21 Fenofibrate Nanocrystallized [Fenofibrate] 160 mg PO DAILY 08/03/21 Insulin Regular [humuLIN R] 80 units SQ AC-BRKFST 10/16/21 Metoprolol Succinate [Metoprolol Succinate ER] 25 mg PO DAILY 01/21/22 lisinopriL 2.5 mg PO DAILY 12/16/22 Cariprazine HCl [Vraylar] 6 mg PO HS 09/29/23 Insulin Regular [humuLIN R] 40 units SQ AC-SUPPER 09/29/23 LORazepam [Ativan] 1 mg PO DAILY PRN 09/29/23 Potassium Chloride ER [K-Dur 20] 20 meq PO DAILY 09/29/23 Prazosin [Minipress] 15 mg PO HS 09/29/23 traMADol HCL 50 - 100 mg PO Q6H PRN 09/29/23 Venlafaxine HCl ER [Effexor XR] 37.5 mg PO DAILY 10/05/23 Tirzepatide [Mounjaro] 10 mg SQ TU 03/28/24 Venlafaxine HCl [Effexor XR] 150 mg PO DAILY 03/28/24 Celecoxib [CeleBREX] 200 mg PO BID 04/15/24 Cyclobenzaprine [Flexeril] 10 mg PO TID PRN 04/15/24 Dicyclomine [Bentyl] 10 mg PO QID PRN 04/15/24 Furosemide [Lasix] 80 mg PO DAILY 04/15/24 Nitroglycerin Sl Tabs [Nitrostat] 0.4 mg SUBLINGUAL Q5M PRN 04/15/24 Ondansetron Odt [Zofran Odt] 4 mg PO Q8HR PRN 04/15/24 QUEtiapine FUMARATE [SEROquel] 200 mg PO HS 04/15/24 QUEtiapine [SEROquel] 100 mg PO HS 04/15/24 busPIRone HCL 10 mg PO TID 04/15/24 Controlled Substance Measures - Controlled Substance Measures Is patient prescribed a controlled substance at discharge?: No
== END ==
LOC: PNWHC3 07:53
PROVIDERS: ATTEND Specialist
DX: M43.26 Fusion of spine, lumbar region (principal); Z88.1 Allergy status to other antibiotic agents; Z88.8 Allergy status to other drugs, medicaments and biological substances
CPT/HCPCS: 99211

== ENCOUNTER 2024-07-18 19:41 | Emergency (ER) | payer MEDICARE, OTHER ==
[2024-07-18 20:19] VITALS: RESP 18
[2024-07-18] MEDS: HYDROmorphone 1 MG/ML 1 ML SYRINGE IM STA (20:56)
[2024-07-18 21:37] LABS: Basophils # (A) 0.1 k/uL (0-0.2); Basophils % (A) 1 %; Eosinophils # (A) 0.2 k/uL (0-0.7); Eosinophils % (A) 2 %; HCT 40.2 % (34.0-46.0); HGB 13.6 gm/dL (11.4-16.0); Lymphocytes # (A) 3.3 k/uL (1.0-4.8); Lymphocytes % (A) 34 %; MCH 30.2 pg (25.0-35.0); MCHC 33.9 g/dL (31.0-37.0); Mean Platelet Volume 9.1; Monocytes # (A) 0.3 k/uL (0-1.0); Monocytes % (A) 3 %; Neutrophils # (A) 5.7 k/uL (1.3-7.7); Neutrophils % (A) 58 %; Platelet Count 245 k/uL (150-450); RBC 4.51 m/uL (3.80-5.40); RDW 13.8 % (11.5-15.5); WBC 9.9 k/uL (3.8-10.6)
[2024-07-18 21:44] LABS: ALT 18 U/L (4-34); AST 26 U/L (14-36); African American GFR (CKD) >90 (>60 ml/min/1.73 sqM); Albumin 3.4 g/dL (3.5-5.0); Alkaline Phosphatase 165 U/L (38-126); Anion Gap 11 mmol/L; Blood Urea Nitrogen 13 mg/dL (7-17); Calcium 8.8 mg/dL (8.4-10.2); Carbon Dioxide 23 mmol/L (22-30); Chloride 97 mmol/L (98-107); Glucose 402 mg/dL (74-99); Non-African American GFR(CKD) >90 (>60 ml/min/1.73 sqM); Potassium 3.8 mmol/L (3.5-5.1); Sodium 131 mmol/L (137-145); Total Bilirubin 0.4 mg/dL (0.2-1.3); Total Protein 6.3 g/dL (6.3-8.2)
--- NOTE | 2024-07-18 21:50 | CT ---
EXAMINATION TYPE: CT brain wo con DATE OF EXAM: 07/18/2024 9:44 PM COMPARISON: 06/20/2023. CLINICAL INDICATION: Female, 54 years old with history of back pain, L leg numbness, back pain, L leg numbness TECHNIQUE: Brain: Axial CT images of the brain were obtained with coronal and sagittal reformats created and rev iewed. Contrast used: None. Oral contrast used: None. CT DLP: 1096.4 mGycm, Automated exposure control for dose reduction was used. FINDINGS: Brain: Extra-axial spaces: No abnormal extra-axial fluid collections. Ventricular system: Within normal limits Cerebral parenchyma: No acute intraparenchymal hemorrhage or mass effect. The sellers-white junction is well differentiated. Cerebellum: Unremarkable. Mass effect: No evidence of midline shift. Intracranial vasculature: unremarkable Soft tissues: Normal. Calvarium/osseous structures: No depressed skull fracture. Paranasal sinuses and mastoid air cells: Mild scattered paranasal sinus disease. Visualized orbits: Orbital contents are intact. IMPRESSION: No acute intracranial process. [facility], , 07/18/2024 9:47 PM
--- NOTE | 2024-07-18 21:58 | CT ---
EXAMINATION TYPE: CT lumbar spine wo con DATE OF EXAM: 07/18/2024 9:44 PM COMPARISON: 02/04/2024. CLINICAL INDICATION: Female, 54 years old with history of back pain, L leg numbness; PHH, back pain, L leg numbness TECHNIQUE: Multiple axial images were obtained from the midportion of T11 through the sacroiliac alejandro nts. Soft tissue and bone windows in coronal and sagittal planes were obtained and reviewed. 3-D ref ormats of the bones were created on a separate workstation and submitted for review. Contrast used: mL of , (None, if empty). Oral contrast used: (None, if empty). CT DLP: 2448.6 mGycm, Automated exposure control for dose reduction was used. FINDINGS: Postsurgical changes to the lumbar spine with fixation hardware at L4, and L5 with Discectomy at L4-L 5. Hardware limits evaluation at these levels. Hardware appears intact. No evidence of fracture. No e vidence for significant spinal canal stenosis. There is at least moderate bilateral L4-L5 neural fora [place] stenosis right greater than left. No evidence of fracture. Tubal ligation clips in the pelvis thought to be present and partially visua lized. IMPRESSION: 1. Postsurgical changes without evidence of immediate post operative complication. 2. Moderate bilateral L4-L5 neural foraminal stenosis right greater than left. [facility], , 07/18/2024 9:56 PM
[2024-07-18] MEDS: HYDROmorphone 1 MG/ML 1 ML SYRINGE IVP STA (22:24)
--- NOTE | 2024-07-18 22:48 | ED ---
Back Pain HPI - General Chief Complaint: Back Pain/Injury Stated Complaint: Numbness Time Seen by Provider: 07/18/24 20:38 Source: patient - History of Present Illness Initial Comments: 54-year-old female presenting with chief complaint of back pain and numbness in the lower extremity. Patient had a steroid injection with pain management today in her lumbar spine. She reports that immediately following the injection she had numbness in her left leg. However her pain was mild to moderate. She went home and throughout the evening the pain kept increasing until it became unbearable and she came to the ER. She is still having the numbness in her left leg and states that at this time she cannot bear weight on the leg because she feels like she will fall over. No fever or chills. No nausea or vomiting. No abdominal pain. No urinary symptoms. No loss of bowel or bladder control or saddle paresthesia. - Related Data Home Medications Medication Instructions Recorded Confirmed Levothyroxine Sodium [Synthroid] 150 mcg PO DAILY 11/10/19 07/18/24 Ergocalciferol (Vitamin D2) 1,250 mcg PO MOTH 07/14/21 07/18/24 [Drisdol (50,000 Iu)] Fenofibrate Nanocrystallized 160 mg PO DAILY 08/03/21 07/18/24 [Fenofibrate] Insulin Regular [humuLIN R] 80 units SQ AC-BRKFST 10/16/21 07/18/24 Metoprolol Succinate [Metoprolol 25 mg PO DAILY 01/21/22 07/18/24 Succinate ER] lisinopriL 2.5 mg PO DAILY 12/16/22 07/18/24 Cariprazine HCl [Vraylar] 6 mg PO HS 09/29/23 07/18/24 Insulin Regular [humuLIN R] 40 units SQ AC-SUPPER 09/29/23 07/18/24 LORazepam [Ativan] 1 mg PO DAILY PRN 09/29/23 07/18/24 Potassium Chloride ER [K-Dur 20] 20 meq PO DAILY 09/29/23 07/18/24 Prazosin [Minipress] 15 mg PO HS 09/29/23 07/18/24 traMADol HCL 50 - 100 mg PO Q6H PRN 09/29/23 07/18/24 Venlafaxine HCl ER [Effexor XR] 37.5 mg PO DAILY 10/05/23 07/18/24 Tirzepatide [Mounjaro] 10 mg SQ TU 03/28/24 07/18/24 Venlafaxine HCl [Effexor XR] 150 mg PO DAILY 03/28/24 07/18/24 Celecoxib [CeleBREX] 200 mg PO BID 04/15/24 07/18/24 Cyclobenzaprine [Flexeril] 10 mg PO TID PRN 04/15/24 07/18/24 Dicyclomine [Bentyl] 10 mg PO QID PRN 04/15/24 07/18/24 Furosemide [Lasix] 80 mg PO DAILY 04/15/24 07/18/24 Nitroglycerin Sl Tabs [Nitrostat] 0.4 mg SUBLINGUAL Q5M PRN 04/15/24 07/18/24 Ondansetron Odt [Zofran Odt] 4 mg PO Q8HR PRN 04/15/24 07/18/24 QUEtiapine FUMARATE [SEROquel] 200 mg PO HS 04/15/24 07/18/24 QUEtiapine [SEROquel] 100 mg PO HS 04/15/24 07/18/24 busPIRone HCL 10 mg PO TID 04/15/24 07/18/24 oxyCODONE-APAP 5-325MG [Percocet 1 tab PO TID PRN 07/14/24 07/18/24 5-325 mg] Allergies Allergy/AdvReac Type Severity Reaction Status Date / Time bupropion [From Wellbutrin] Allergy Rash/Hives Verified 07/18/24 20:19 cephalexin [From Keflex] Allergy Rash/Hives Verified 07/18/24 20:19 propoxyphene Allergy Rash/Hives Verified 07/18/24 20:19 [From Darvocet-N] sertraline [From Zoloft] Allergy AGITATION Verified 07/18/24 20:19 Review of Systems ROS Statement: Those systems with pertinent positive or pertinent negative responses have been documented in the HPI. ROS Other: All systems not noted in ROS Statement are negative. Past Medical History Past Medical History: Diabetes Mellitus, Hyperlipidemia, Hypertension, Thyroid Disorder Additional Past Medical History / Comment(s): IDDM, bilateral leg/feet edema, frequent UTI's, hx sepsis, hx hypokalemia, hx pancreatitis, tachycardia/frequent PVC's, IBS, migraines, vertigo, Degenerative Disc Disease. History of Any Multi-Drug Resistant Organisms: None Reported Past Surgical History: Back Surgery, Bowel Resection, Section, Cholecystectomy, Hernia Repair, Hysterectomy, Joint Replacement Additional Past Surgical History / Comment(s): Bilateral knee replacement, thymus gland removal, ventral hernia repair with mesh, surgery for twisted bowel, COLONOSCOPY/EGD, fusion L4-L5 with rods. Past Anesthesia/Blood Transfusion Reactions: No Reported Reaction Additional Past Anesthesia/Blood Transfusion Reaction / Comment(s): No problems with prior blood transfusion in 1994. Past Psychological History: Anxiety, Depression, Panic Disorder, PTSD, Schizoaffective Disorder, Schizophrenia Smoking Status: Never smoker Past Alcohol Use History: None Reported Past Drug Use History: None Reported - Past Family History Mother Family Medical History: Cancer Additional Family Medical History / Comment(s): Lung cancer. Father Family Medical History: Myocardial Infarction ([place]) Sister(s) Family Medical History: Cancer Additional Family Medical History / Comment(s): Breast cancer. General Exam General appearance: alert, in no apparent distress Head exam: Present: atraumatic, normocephalic, normal inspection Eye exam: Present: normal appearance, EOMI Neck exam: Present: normal inspection. Absent: meningismus Respiratory exam: Absent: respiratory distress Cardiovascular Exam: Present: regular rate Extremities exam: Present: normal inspection Back exam: Present: normal inspection Neurological exam: Present: alert, oriented X3 Psychiatric exam: Present: normal affect, normal mood Skin exam: Present: warm, dry, normal color Course Vital Signs 07/18/24 07/18/24 07/18/24 20:12 22:27 23:07 Temperature 97.8 F 98.2 F Pulse Rate 96 98 100 Respiratory 18 18 18 Rate Blood Pressure 141/81 137/78 113/93 O2 Sat by Pulse 97 98 95 Oximetry Medical Decision Making - Medical Decision Making Was pt. sent in by a medical professional or institution (, PA, CONDITIONING MACHINE OPERATOR, urgent care, hospital, or [facility]...) When possible be specific @ -No Did you speak to anyone other than the patient for history (EMS, parent, family, police, friend...)? What history was obtained from this source @ -No Did you review nursing and triage notes (agree or disagree)? Why? @ -I reviewed and agree with nursing and triage notes Were old charts reviewed (outside hosp., previous admission, EMS record, old EKG, old radiological studies, urgent care reports/EKG's, [facility] records)? Report findings @ -No old charts were reviewed Differential Diagnosis (chest pain, altered mental status, abdominal pain women, abdominal pain men, vaginal bleeding, weakness, fever, dyspnea, syncope, headache, dizziness, GI bleed, back pain, seizure, CVA, palpatations, mental health, musculoskeletal)? @ - MDM Differential Back Pain: Strain, zoster, cauda equina syndrome, epidural abscess, vertebral osteo myelitis, discitis, fracture, subluxation, disc herniation, DJD, spinal stenosis, dissection, AAA, pancreatitis, peptic ulcer disease, pyelonephritis, kidney stone this is not meant to be an all-inclusive list. EKG interpreted by me (3pts min.). @ -As above X-rays interpreted by me (1pt min.). @ -None done CT interpreted by me (1pt min.). @ -No acute process seen on CT of the brain. Postsurgical changes without evidence of immediate postoperative complications seen on CT of the lumbar sp ine. Moderate bilateral L4-L5 neuroforaminal stenosis right greater than left U/S interpreted by me (1pt. min.). @ -None done What testing was considered but not performed or refused? (CT, X-rays, U/S, labs)? Why? @ -None What meds were considered but not given or refused? Why? @ -None Did you discuss the management of the patient with other professionals (professionals i.e. , PA, CONDITIONING MACHINE OPERATOR, lab, RT, psych nurse, social media strategist, mapping engineer, teacher, science and operations officer, family independence case manager)? Give summary @ -No Was smoking cessation discussed for >3mins.? @ -No Was critical care preformed (if so, how long)? @ -No Were there social determinants of health that impacted care today? How? (Homelessness, low income, unemployed, alcoholism, drug addiction, transportation, low edu. Level, literacy, decrease access to med. care, alf, rehab)? @ -No Was there de-escalation of care discussed even if they declined (Discuss DNR or withdrawal of care, Hospice)? DNR status @ -No What co-morbidities impacted this encounter? (DM, HTN, Smoking, COPD, CAD, Cancer, CVA, ARF, Chemo, Hep., AIDS, mental health diagnosis, sleep apnea, morbid obesity)? @ -None Was patient admitted / discharged? Hospital course, mention meds given and route, prescriptions, significant lab abnormalities, going to OR and other pertinent info. @ -54-year-old female presenting with chief complaint of lower back pain and numbness in the left lower extremity. Patient had a steroid injection in her back earlier today with pain management. She states that immediately following she was having numbness in her leg but because she was able to ambulate they discharged her home. She states that she has had worsening pain in her lower b ack which prompted her to come into the ER. She was unable to manage the pain at home. History and physical examination are conducted. Given the fact that the patient started having this numbness immediately following her injection and seems more likely to be due to the procedure than to CVA. CT is obtained which shows no acute intracranial process. CT of the lumbar spine shows no postop complications. patient is given pain medication. On reassessment she reports significant improvement in her pain. She is now able to ambulate and feels much better. She is educated on today's findings. Follow-up with PCP. Report back to ER with any new or worsening symptoms. Discussed return parameters and answered all questions. Patient conveyed verbal understanding and agreed to the plan. I discussed this case in detail with my attending Dr. Jamison Undiagnosed new problem with uncertain prognosis? @ -No Drug Therapy requiring intensive monitoring for toxicity (Heparin, Nitro, Insulin, Cardizem)? @ -No Were any procedures done? @ -No Diagnosis/symptom? @ -Lumbar radiculopathy Acute, or Chronic, or Acute on Chronic? @ -Acute Uncomplicated (without systemic symptoms) or Complicated (systemic symptoms)? @ -Uncomplicated Side effects of treatment? @ -No Exacerbation, Progression, or Severe Exacerbation? @ -No Poses a threat to life or bodily function? How? (Chest pain, [place], [place], pneumonia, PE, COPD, DKA, ARF, appy, cholecystitis, CVA, Diverticulitis, Homicidal, Suicidal, threat to staff... and all critical care pts) @ -Low likelihood - Lab Data Result diagrams: 07/18/24 21:19 07/18/24 21:19 Lab Results 07/18/24 07/18/24 Range/Units 21:19 21:19 WBC 9.9 (3.8-10.6) k/uL RBC 4.51 (3.80-5.40) m/uL Hgb 13.6 (11.4-16.0) gm/dL Hct 40.2 (34.0-46.0) % MCV 89.0 (80.0-100.0) fL MCH 30.2 (25.0-35.0) pg MCHC 33.9 (31.0-37.0) g/dL RDW 13.8 (11.5-15.5) % Plt Count 245 (150-450) k/uL MPV 9.1 Neutrophils % 58 % Lymphocytes % 34 % Monocytes % 3 % Eosinophils % 2 % Basophils % 1 % Neutrophils # 5.7 (1.3-7.7) k/uL Lymphocytes # 3.3 (1.0-4.8) k/uL Monocytes # 0.3 (0-1.0) k/uL Eosinophils # 0.2 (0-0.7) k/uL Basophils # 0.1 (0-0.2) k/uL Sodium 131 L (137-145) mmol/L Potassium 3.8 (3.5-5.1) mmol/L Chloride 97 L (98-107) mmol/L Carbon Dioxide 23 (22-30) mmol/L Anion Gap 11 mmol/L BUN 13 (7-17) mg/dL Creatinine 0.71 (0.52-1.04) mg/dL Est GFR (CKD-EPI)AfAm >90 (>60 ml/min/1.73 sqM) Est GFR (CKD-EPI)NonAf >90 (>60 ml/min/1.73 sqM) Glucose 402 H (74-99) mg/dL Calcium 8.8 (8.4-10.2) mg/dL Total Bilirubin 0.4 (0.2-1.3) mg/dL AST 26 (14-36) U/L ALT 18 (4-34) U/L Alkaline Phosphatase 165 H (38-126) U/L Total Protein 6.3 (6.3-8.2) g/dL Albumin 3.4 L (3.5-5.0) g/dL Disposition Clinical Impression: Lumbar radiculopathy Disposition: HOME SELF-CARE Condition: Fair Instructions (If sedation given, give patient instructions): Lumbar Radiculopathy (ED) Additional Instructions: Follow-up with PCP and pain management. Report back to ER with any new or worsening symptoms. Is patient prescribed a controlled substance at d/c from ED?: No Referrals: Aundrea Torres MD [Primary Care Provider] - 1-2 days Time of Disposition: 22:58
[2024-07-18 23:09] VITALS: BP 113/93; PULSE 100; TEMP 98.2
== END 2024-07-18 23:11 | disposition home or self-care (01) ==
LOC: EC 19:41
DX: M54.16 Radiculopathy, lumbar region (principal); Z88.1 Allergy status to other antibiotic agents; Z88.5 Allergy status to narcotic agent; Z88.8 Allergy status to other drugs, medicaments and biological substances
CPT/HCPCS: 36415; 80053; 85025; 72131; 70450; 99284; 96372; 96374; J1171

== ENCOUNTER 2024-12-21 11:35 | Emergency (ER) | payer MEDICARE, OTHER ==
[2024-12-21 11:40] VITALS: RESP 18; TEMP 97.8
--- NOTE | 2024-12-21 12:06 | ED ---
Nausea/Vomiting/Diarrhea HPI - General Chief complaint: Nausea/Vomiting/Diarrhea Stated complaint: Abd Pain Time Seen by Provider: 12/21/24 12:05 Source: patient, RN notes reviewed Mode of arrival: ambulatory Limitations: no limitations - History of Present Illness Initial comments: 54-year-old female presented ER for evaluation of abdominal pain. She reports over the past 3 to 4 weeks she has been experiencing a generalized worsening abdominal pain. She states it is sore at baseline and will have occasional flares of sharp stabbing pain. She also admits to diarrhea along with nausea and inability to keep food or liquids down. Admits to flatulence. Patient was seen by PCP and prescribed Zofran for nausea which did not alleviate symptoms. She has also tried [id number] Imodium and Pepto-Bismol. Patient reports she was seen by PCP today for continued abdominal pain and they sent her to the ER for further evaluation. 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 Hernandes in 2020. She denies any fevers, chills, chest pain, shortness of breath, urinary complaints or peripheral edema. - Related Data Home Medications Medication Instructions Recorded Confirmed Levothyroxine Sodium [Synthroid] 150 mcg PO DAILY 11/10/19 12/21/24 Metoprolol Succinate [Metoprolol 25 mg PO DAILY 01/21/22 12/21/24 Succinate ER] Cariprazine HCl [Vraylar] 6 mg PO HS 09/29/23 12/21/24 Prazosin [Minipress] 15 mg PO 09/29/23 12/21/24 Venlafaxine HCl ER [Effexor XR] 37.5 mg PO DAILY 10/05/23 12/21/24 Venlafaxine HCl [Effexor XR] 150 mg PO DAILY 03/28/24 12/21/24 Cyclobenzaprine [Flexeril] 10 mg PO TID PRN 04/15/24 12/21/24 Furosemide [Lasix] 80 mg PO DAILY 04/15/24 12/21/24 Nitroglycerin Sl Tabs [Nitrostat] 0.4 mg SUBLINGUAL Q5M PRN 04/15/24 12/21/24 Insulin Regular, Human [humuLIN R 60 unit SQ 12/21/24 12/21/24 U-500 Kwikpen] Insulin Regular, Human [humuLIN R 100 unit SQ DAILY 12/21/24 12/21/24 U-500 Kwikpen] Tirzepatide [Mounjaro] 12.5 mg SQ TU 12/21/24 12/21/24 Previous Rx's Medication Instructions Recorded Nystatin 100,000 Unit/gm Powd 1 applic TOPICAL BID #15 gram 12/21/24 [Mycostatin Powder] Allergies Allergy/AdvReac Type Severity Reaction Status Date / Time bupropion [From Wellbutrin] Allergy Rash/Hives Verified 12/21/24 11:39 cephalexin [From Keflex] Allergy Rash/Hives Verified 12/21/24 11:39 propoxyphene Allergy Rash/Hives Verified 12/21/24 11:39 [From Darvocet-N] sertraline [From Zoloft] Allergy AGITATION Verified 12/21/24 11:39 Review of Systems ROS Statement: Those systems with pertinent positive or pertinent negative responses have been documented in the HPI. ROS Other: All systems not noted in ROS Statement are negative. Past Medical History Past Medical History: Diabetes Mellitus, Hyperlipidemia, Hypertension, Thyroid Disorder Additional Past Medical History / Comment(s): IDDM, bilateral leg/feet edema, frequent UTI's, hx sepsis, hx hypokalemia, hx pancreatitis, tachycardia/frequent PVC's, IBS, migraines, vertigo, Degenerative Disc Disease. History of Any Multi-Drug Resistant Organisms: None Reported Past Surgical History: Back Surgery, Bowel Resection, Section, Cholecystectomy, Hernia Repair, Hysterectomy, Joint Replacement Additional Past Surgical History / Comment(s): Bilateral knee replacement, thymus gland removal, ventral hernia repair with mesh, surgery for twisted bowel, COLONOSCOPY/EGD, fusion L4-L5 with rods. Past Anesthesia/Blood Transfusion Reactions: No Reported Reaction Additional Past Anesthesia/Blood Transfusion Reaction / Comment(s): No problems with prior blood transfusion in 1994. Past Psychological History: Anxiety, Depression, Panic Disorder, PTSD, Schizoa ffective Disorder, Schizophrenia Smoking Status: Never smoker Past Alcohol Use History: None Reported Past Drug Use History: None Reported - Past Family History Mother Family Medical History: Cancer Additional Family Medical History / Comment(s): Lung cancer. Father Family Medical History: Myocardial Infarction ([place]) Sister(s) Family Medical History: Cancer Additional Family Medical History / Comment(s): Breast cancer. General Exam Limitations: no limitations General appearance: alert, in no apparent distress Respiratory exam: Present: normal lung sounds bilaterally. Absent: respiratory distress, wheezes, rales, rhonchi, stridor Cardiovascular Exam: Present: normal rhythm, tachycardia, normal heart sounds GI/Abdominal exam: Present: soft (Obese abdomen), tenderness (Right lower quadrant), normal bowel sounds Extremities exam: Present: normal inspection, full ROM, normal capillary refill. Absent: tenderness, pedal edema, joint swelling, calf tenderness Neurological exam: Present: alert, oriented X3, CN II-XII intact Psychiatric exam: Present: anxious Skin exam: Present: warm, dry, intact, normal color. Absent: rash Course Vital Signs 12/21/24 12/21/24 11:36 16:27 Temperature 97.8 F Pulse Rate 110 H 102 H Respiratory 18 18 Rate Blood Pressure 154/97 149/99 O2 Sat by Pulse 97 98 Oximetry Medical Decision Making - Medical Decision Making Was pt. sent in by a medical professional or institution ([facility], [facility], urgent care, hospital, or usp...) When possible be specific @ -Patient sent by PCP for evaluation of abdominal pain. Did you speak to anyone other than the patient for history (EMS, parent, family, police, friend...)? What history was obtained from this source @ -No Did you review nursing and triage notes (agree or disagree)? Why? @ -I reviewed and agree with nursing and triage notes Were old charts reviewed (outside hosp., previous admission, EMS record, old EKG, old radiological studies, urgent care reports/EKG's, usp records)? Report findings @ -No old charts were reviewed Differential Diagnosis (chest pain, altered mental status, abdominal pain women, abdominal pain men, vaginal bleeding, weakness, fever, dyspnea, syncope, he adache, dizziness, GI bleed, back pain, seizure, CVA, palpatations, mental health, musculoskeletal)? @ -Differential Abdominal Pain Women:Appendicitis, Cholecystitis, diverticulosis, ischemic bowel, pancreatitis, hepatitis, UTI, gastroenteritis, AAA, incarcerated hernia, bowel obstruction, constipation, inflammatory bowel, hepatitis, peptic ulcer disease, splenic infarction, perforated viscus, v ulvitis, ovarian torsion, PID, kidney stone, placenta abruption, this is not meant to be an all-inclusive list EKG interpreted by me (3pts min.). @ -As above X-rays interpreted by me (1pt min.). @ -None done CT interpreted by me (1pt min.). @ -CT Abdo pelvis negative for acute intra-abdominal/pelvic process. U/S interpreted by me (1pt. min.). @ -None done What testing was considered but not performed or refused? (CT, X-rays, U/S, labs)? Why? @ -None What meds were considered but not given or refused? Why? @ -None Did you discuss the management of the patient with other professionals (pro fessionals i.e. , PA, [employer] [employer], lab, RT, psych nurse, addiction social worker, prep room supervisor, teacher, chief client officer, case hardener)? Give summary @ -No Was smoking cessation discussed for >3mins.? @ -No Was critical care preformed (if so, how long)? @ -No Were there social determinants of health that impacted care today? How? (Homelessness, low income, unemployed, alcoholism, drug addiction, transportation, low edu. Level, literacy, decrease access to med. care, longterm, rehab)? @ -No Was there de-escalation of care discussed even if they declined (Discuss DNR or withdrawal of care, Hospice)? DNR status @ -No What co-morbidities impacted this encounter? (DM, HTN, Smoking, COPD, CAD, Cancer, CVA, ARF, Chemo, Hep., AIDS, mental health diagnosis, sleep apnea, morbid obesity)? @ -History of bowel resection, Diabetes mellitus, hypertension, hyperlipidemia, thyroid disorder Was patient admitted / discharged? Hospital course, mention meds given and route, prescriptions, significant lab abnormalities, going to OR and other pertinent info. @ -Discharge. 54-year-old female presented the ER for evaluation of abdominal pain. Patient sent by PCP. Upon arrival patient mildly tachycardic at 110 bpm vitals otherwise stable. Upon my examination patient is mildly anxious no signs of acute distress. Abdominal exam remarkable for right lower quadrant abdominal tenderness with normal bowel sounds. No rebound or guarding. There is a rash consistent with candidal infection noted to abdominal pannus. Laboratory studies obtained markable for leukocytosis of 11.5 a left shift. Lactic 2.6. Lipase 200. Urinalysis with rare bacteria, 14 urine WBCs and moderate leukocyte esterases, sample is contaminated with 25 epithelial cells. Urine will be sent for culture prior to antibiotic initiation as patient denies any current urinary complaints, patient is agreeable. Given history of bowel resection, CT abdomen pelvis obtained and negative for acute intra-abdominal/pelvic process. Patient provided with symptomatic control in the emergency department, with improvement upon reevaluation. Patient reevaluated and educated on today's findings, all q uestions answered. Nystatin powder prescribed for abdominal pannus candidal infection. Strict return parameters discussed. Patient discharged in stable condition with follow-up to PCP. Patient verbally expressed understanding and agreement with care plan. Case discussed with ED attending, . Undiagnosed new problem with uncertain prognosis? @ -No Drug Therapy requiring intensive monitoring for toxicity (Heparin, Nitro, Insulin, Cardizem)? @ -No Were any procedures done? @ -No Diagnosis/symptom? @ -Abdominal pain/ cutaneous Valeria Acute, or Chronic, or Acute on Chronic? @ -Acute Uncomplicated (without systemic symptoms) or Complicated (systemic symptoms)? @ -Uncomplicated Side effects of treatment? @ -No Exacerbation, Progression, or Severe Exacerbation? @ -No Poses a threat to life or bodily function? How? (Chest pain, [place], [place], pneumonia, PE, COPD, DKA, ARF, appy, cholecystitis, CVA, Diverticulitis, Homicidal, Suicidal, threat to staff... and all critical care pts) @ -No - Lab Data Result diagrams: 12/21/24 12:29 12/21/24 12:29 Lab Results 12/21/24 12/21/24 12/21/24 Range/Units 12:29 12:29 12:29 WBC 11.55 H (4.50-10.00) 10*3/uL RBC 4.72 (4.10-5.20) 10*6/uL Hgb 14.9 (12.0-15.0) g/dL Hct 41.0 (37.2-46.3) % MCV 86.9 (80.0-97.0) fL MCH 31.6 (27.0-32.0) pg MCHC 36.3 (32.0-37.0) g/dL Plt Count 292 (140-440) 10*3/uL MPV 11.2 (9.5-12.2) fL Immature Gran % (Auto) 0.7 % Neutrophils % 67.7 % Lymphocytes % 26.1 % Monocytes % 3.8 % Eosinophils % 1.4 % Basophils % 0.3 % Immature Gran # 0.08 H (0.00-0.04) 10*3/uL Neutrophils # 7.82 H (1.80-7.70) 10*3/uL Lymphocytes # 3.01 (0.90-5.00) 10*3/uL Monocytes # 0.44 (0.20-1.00) 10*3/uL Eosinophils # 0.16 (0.04-0.35) 10*3/uL Basophils # 0.04 (0.00-0.10) 10*3/uL Sodium 138 (137-145) mmol/L Potassium 3.8 (3.5-5.1) mmol/L Chloride 106 (98-107) mmol/L Carbon Dioxide 20 L (22-30) mmol/L Anion Gap 12 mmol/L BUN 12 (7-17) mg/dL Creatinine 0.52 (0.52-1.04) mg/dL Est GFR (CKD-EPI)AfAm >90 (>60 ml/min/1.73 sqM) Est GFR (CKD-EPI)NonAf >90 (>60 ml/min/1.73 sqM) Glucose 166 H (74-99) mg/dL Lactic Ac Sepsis Rflx Plasma Lactic Acid Shayan 2.6 H* (0.7-2.0) mmol/L Calcium 9.3 (8.4-10.2) mg/dL Total Bilirubin 0.7 (0.2-1.3) mg/dL AST 44 H (14-36) U/L ALT 23 (4-34) U/L Alkaline Phosphatase 109 (38-126) U/L Total Protein 6.9 (6.3-8.2) g/dL Albumin 3.9 (3.5-5.0) g/dL Lipase 200 (23-300) U/L Urine Color Urine Appearance (Clear) Urine pH (5.0-8.0) Ur Specific Hastings (1.001-1.035) Urine Protein (Negative) Urine Glucose (UA) (Negative) Urine Ketones (Negative) Urine Blood (Negative) Urine Nitrite (Negative) Urine Bilirubin (Negative) Urine Urobilinogen (<2.0) mg/dL Ur Leukocyte Esterase (Negative) Urine RBC (0-5) /hpf Urine WBC (0-5) /hpf Ur Squamous Epith Cells (0-4) /hpf Urine Bacteria (None) /hpf Urine Mucus (None) /hpf 12/21/24 12/21/24 Range/Units 13:30 13:50 WBC (4.50-10.00) 10*3/uL RBC (4.10-5.20) 10*6/uL Hgb (12.0-15.0) g/dL Hct (37.2-46.3) % MCV (80.0-97.0) fL MCH (27.0-32.0) pg MCHC (32.0-37.0) g/dL Plt Count (140-440) 10*3/uL MPV (9.5-12.2) fL Immature Gran % (Auto) % Neutrophils % % Lymphocytes % % Monocytes % % Eosinophils % % Basophils % % Immature Gran # (0.00-0.04) 10*3/uL Neutrophils # (1.80-7.70) 10*3/uL Lymphocytes # (0.90-5.00) 10*3/uL Monocytes # (0.20-1.00) 10*3/uL Eosinophils # (0.04-0.35) 10*3/uL Basophils # (0.00-0.10) 10*3/uL Sodium (137-145) mmol/L Potassium (3.5-5.1) mmol/L Chloride (98-107) mmol/L Carbon Dioxide (22-30) mmol/L Anion Gap mmol/L BUN (7-17) mg/dL Creatinine (0.52-1.04) mg/dL Est GFR (CKD-EPI)AfAm (>60 ml/min/1.73 sqM) Est GFR (CKD-EPI)NonAf (>60 ml/min/1.73 sqM) Glucose (74-99) mg/dL Lactic Ac Sepsis Rflx Y Plasma Lactic Acid Shayan (0.7-2.0) mmol/L Calcium (8.4-10.2) mg/dL Total Bilirubin (0.2-1.3) mg/dL AST (14-36) U/L ALT (4-34) U/L Alkaline Phosphatase (38-126) U/L Total Protein (6.3-8.2) g/dL Albumin (3.5-5.0) g/dL Lipase (23-300) U/L Urine Color Yellow Urine Appearance Cloudy H (Clear) Urine pH 5.5 (5.0-8.0) Ur Specific Hastings >1.050 H (1.001-1.035) Urine Protein 1+ H (Negative) Urine Glucose (UA) Trace H (Negative) Urine Ketones Negative (Negative) Urine Blood Negative (Negative) Urine Nitrite Negative (Negative) Urine Bilirubin Negative (Negative) Urine Urobilinogen <2.0 (<2.0) mg/dL Ur Leukocyte Esterase Moderate H (Negative) Urine RBC 20 H (0-5) /hpf Urine WBC 14 H (0-5) /hpf Ur Squamous Epith Cells 25 H (0-4) /hpf Urine Bacteria Rare H (None) /hpf Urine Mucus Many H (None) /hpf - Radiology Data Radiology results: report reviewed, image reviewed Disposition Clinical Impression: Abdominal pain, Cutaneous candidiasis Disposition: HOME SELF-CARE Condition: Stable Instructions (If sedation given, give patient instructions): Abdominal Pain (ED) Additional Instructions: Follow-up closely with PCP and Dr. Hernandes. Return to the ER for any new or worsening concerns Prescriptions: Nystatin 100,000 Unit/gm Powd [Mycostatin Powder] 1 applic TOPICAL BID #15 gram Is patient prescribed a controlled substance at d/c from ED?: No Referrals: Aundrea Torres MD [Primary Care Provider] - 1-2 days Yarelis Hernandes MD [STAFF PHYSICIAN] - 1-2 days Time of Disposition: 15:43
[2024-12-21] MEDS: ONDANSETRON 4 MG/2 ML VIAL IVP STA (12:36)
[2024-12-21] MEDS: KETOROLAC 15 MG/ML 1 ML VIAL IVP STA (12:36)
[2024-12-21] MEDS: SODIUM CHLORIDE 0.9% 1,000 ML IV STA (12:36)
[2024-12-21 12:53] LABS: Basophils # (A) 0.04 10*3/uL (0.00-0.10); Basophils % (A) 0.3 %; Eosinophils # (A) 0.16 10*3/uL (0.04-0.35); Eosinophils % (A) 1.4 %; HCT 41.0 % (37.2-46.3); HGB 14.9 g/dL (12.0-15.0); Lymphocytes # (A) 3.01 10*3/uL (0.90-5.00); Lymphocytes % (A) 26.1 %; MCH 31.6 pg (27.0-32.0); MCHC 36.3 g/dL (32.0-37.0); MCV 86.9 fL (80.0-97.0); Monocytes # (A) 0.44 10*3/uL (0.20-1.00); Monocytes % (A) 3.8 %; Neutrophils # (A) 7.82 10*3/uL (1.80-7.70); Neutrophils % (A) 67.7 %; Platelet Count 292 10*3/uL (140-440); RBC 4.72 10*6/uL (4.10-5.20); RDW 12.1 % (11.5-14.5); WBC 11.55 10*3/uL (4.50-10.00)
[2024-12-21 13:05] LABS: ALT 23 U/L (4-34); AST 44 U/L (14-36); African American GFR (CKD) >90 (>60 ml/min/1.73 sqM); Albumin 3.9 g/dL (3.5-5.0); Alkaline Phosphatase 109 U/L (38-126); Anion Gap 12 mmol/L; Blood Urea Nitrogen 12 mg/dL (7-17); Calcium 9.3 mg/dL (8.4-10.2); Carbon Dioxide 20 mmol/L (22-30); Chloride 106 mmol/L (98-107); Glucose 166 mg/dL (74-99); Lipase 200 U/L (23-300); Non-African American GFR(CKD) >90 (>60 ml/min/1.73 sqM); Potassium 3.8 mmol/L (3.5-5.1); Sodium 138 mmol/L (137-145); Total Protein 6.9 g/dL (6.3-8.2)
--- NOTE | 2024-12-21 14:02 | CT ---
EXAMINATION TYPE: CT abdomen pelvis w con CT DLP: 2744.4 mGycm, Automated exposure control for dose reduction was used. DATE OF EXAM: 12/21/2024 1:32 PM COMPARISON: Multiple CT abdomen pelvis with most recent 06/13/2022 CLINICAL INDICATION:Female, 54 years old with history of rlq abd pain hx bowel resection; RLQ pain, h x of bowel ressection. N/V/D x3wks. TECHNIQUE: Standard CT of the abdomen and pelvis following the administration of 100 cc of Isovue 3 00 IV contrast material. Coronal and sagittal reformats were performed. FINDINGS: LOWER CHEST: The visualized lung bases are clear. Elevation of the left hemidiaphragm. ABDOMEN LIVER: Possible hepatic steatosis. The liver extends approximately 24.6 cm in CC dimension. Suggested Reidel lobe variant. No focal lesion. GALLBLADDER AND BILE DUCTS: The gallbladder is surgically absent. No biliary ductal dilatation. PANCREAS: Unremarkable. SPLEEN: Single calcified granuloma. ADRENAL GLANDS: Unremarkable. KIDNEYS AND URETERS: No evidence of hydronephrosis or renal calculus. The kidneys enhance symmetrica lly. PELVIS BLADDER: Underdistended but grossly unremarkable. REPRODUCTIVE: The uterus is surgically absent. ABDOMEN & PELVIS STOMACH AND BOWEL: Stomach and duodenum are unremarkable. Redundant sigmoid colon. No focal bowel wal l thickening or surrounding inflammatory changes. The appendix is not identified however no significa nt inflammatory changes. No evidence of bowel obstruction. PERITONEUM: No evidence of pneumoperitoneum or free fluid. VASCULATURE: No evidence of aortic aneurysm. MUSCULOSKELETAL: No acute osseous abnormalities. Postsurgical changes from posterior lumbar fusion L4 -L5 with intervertebral disc cage. Hardware appears intact. LYMPH NODES: No evidence for lymphadenopathy. SOFT TISSUE/ABDOMINAL WALL: Postsurgical changes of the midline anterior abdominal wall with small ep igastric wall fat-containing hernia. Defect measures approximately 1.7 cm in diameter. IMPRESSION: No CT evidence for acute abdominal/pelvic process. [facility], , 12/21/2024 2:00 PM
[2024-12-21 15:18] LABS: Bacteria,Urine Rare /hpf; Bilirubin,Urine Negative (Negative); Blood,Urine Negative (Negative); Color,Urine Yellow; Glucose,Urine (UA) Trace (Negative); Ketones,Urine Negative (Negative); Leukocyte Esterase,Urine Moderate (Negative); Mucus,Urine Many /hpf; Nitrite,Urine Negative (Negative); PH, Urine 5.5 (5.0-8.0); Protein,Urine 1+ (Negative); RBC,Urine 20 /hpf (0-5); Squamous Epithelial Cell,Urine 25 /hpf (0-4); Urobilinogen,Urine <2.0 mg/dL (<2.0); WBC,Urine 14 /hpf (0-5)
[2024-12-21 15:33] LABS: Specific Gravity,Urine >1.050 (1.001-1.035)
[2024-12-21 16:28] VITALS: BP 149/99; PULSE 102
== END 2024-12-21 16:29 | disposition home or self-care (01) ==
LOC: EC 11:35
DX: R10.31 Right lower quadrant pain (principal); B37.2 Candidiasis of skin and nail; E11.9 Type 2 diabetes mellitus without complications; E78.5 Hyperlipidemia, unspecified; I10 Essential (primary) hypertension; Z88.1 Allergy status to other antibiotic agents; Z88.8 Allergy status to other drugs, medicaments and biological substances
CPT/HCPCS: 36415; 80053; 83605; 83690; 85025; 81001; 87086; 87077; 87186; 74177; 99284; 96374; 96375; 96361; J2405; J1885; Q9967